=== PATIENT | male | born 1950 | race Caucasian/White ===

== ENCOUNTER → 2022-09-20 11:59 | Outpatient (BNVA) | payer MEDICARE, MEDICAID, SELFPAY | PROVIDERS: PCP Hospitalist; Referring Provider Hospitalist; Visit Provider Physician Assistant | DX: Z01.818 Encounter for other preprocedural examination (principal) | CPT/HCPCS: 99202 ==

== ENCOUNTER → 2022-09-27 13:14 | Outpatient (BNVA) | payer MEDICARE, MEDICAID, SELFPAY | PROVIDERS: PCP Hospitalist; Visit Provider Nurse Practitioner Family | DX: R32 Unspecified urinary incontinence (principal); N40.0 Benign prostatic hyperplasia without lower urinary tract symptoms | CPT/HCPCS: 51798; 99202 ==

== ENCOUNTER 2022-10-26 08:17 | Outpatient (REF) | payer MEDICARE, MEDICAID, SELFPAY ==
--- NOTE | ~2022-10-26 | CT_ITS ---
EXAMINATION: CT ABDOMEN WITH CONTRAST CLINICAL INFORMATION: Abdominal aortic aneurysm COMPARISON: None available. TECHNIQUE: Contiguous axial thin section helical images of the abdomen were performed following the administration of oral contrast and 85 mL of Omnipaque 350 intravenous contrast. The data set was reformatted in the coronal and sagittal planes and reviewed on an independent workstation. This CT examination was performed using dose optimization techniques as appropriate, variously including the following: *Automated exposure control *Adjustment of mA and/or kV according to patient size (this includes techniques or standardized protocols for targeted exams where dose is matched to indication/reason for exam; i.e. extremities or head) *Use of iterative reconstruction technique DLP: 115 mGy-cm FINDINGS: LUNG BASES: There may be emphysematous changes. The lung bases are clear. LIVER, GALLBLADDER, AND BILIARY TREE: Several liver cysts, largest measuring 2 cm in the left lobe adjacent to the ligament. Mild fatty infiltration of the liver. Normal gallbladder. No biliary duct dilatation. PANCREAS: Normal SPLEEN: Normal ADRENAL GLANDS AND KIDNEYS: 2 right renal cysts, largest measuring 3 cm in the lower pole.. No imaging follow-up recommended. Kidneys are otherwise normal. BOWEL LOOPS: Constipation and diverticulosis. Normal small bowel. Question small esophageal hernia. LYMPH NODES: Normal. VASCULAR: Large fusiform juxtarenal abdominal aortic aneurysm measuring maximum 6.1 x 7.4 cm in AP and transverse dimension. This measures 11 cm in length and extends to the iliac bifurcation. This is partially thrombosed. BONES: Degenerative changes of the spine. CT/CT abdomen w IV con IMPRESSION: Large fusiform juxtarenal abdominal aortic aneurysm extending to the iliac arteries. This measures 6.1 x 7.4 x 11 cm in AP transverse and longitudinal dimension. Vascular consultation recommended. Findings will be communicated by the [place] work flow table lever operator. Fleischner guidelines were followed.
[2022-10-26] MEDS: iohexoL 350 MG/ML 100 ML INFUS..BTL IV (09:44)
== END 2022-10-26 08:18 | disposition home or self-care (01) ==
LOC: HO.CT 08:17
PROVIDERS: PCP Hospitalist; Visit Provider Hospitalist
DX: I71.40 Abdominal aortic aneurysm, without rupture, unspecified (principal)
CPT/HCPCS: 74160; Q9967

== ENCOUNTER 2022-11-08 11:37 | Outpatient (REF) | payer MEDICARE, MEDICAID, SELFPAY ==
--- NOTE | ~2022-11-08 | XR_ITS ---
EXAMINATION: XR CHEST CLINICAL INFORMATION: Cough COMPARISON: None available. TECHNIQUE: 2 views of the chest were obtained. FINDINGS: The cardiac and mediastinal contours are normal. The lungs are clear. There is no pleural effusion or pneumothorax. There are old bilateral rib fractures. There are are degenerative changes of the spine. XR/XR chest 2V IMPRESSION: No evidence for acute disease in the chest.
== END 2022-11-08 11:38 | disposition home or self-care (01) ==
LOC: HO.XRAY 11:37
PROVIDERS: PCP Hospitalist; Visit Provider Hospitalist
DX: R05.9 Cough, unspecified (principal)
CPT/HCPCS: 71046

== ENCOUNTER → 2022-11-15 15:23 | Outpatient (BNVA) | payer MEDICARE, MEDICAID, SELFPAY | PROVIDERS: PCP Hospitalist; Visit Provider Surgery Vascular Surgery | DX: I71.40 Abdominal aortic aneurysm, without rupture, unspecified (principal) | CPT/HCPCS: 99202 ==

== ENCOUNTER 2022-11-20 14:51 | Outpatient (REF) | payer MEDICARE, MEDICAID, SELFPAY ==
[2022-11-21 12:12] LABS: Creatinine POC 0.6 mg/dL (0.5-1.4); GFR POC > 60
== END 2022-11-20 14:52 | disposition home or self-care (01) ==
LOC: HO.CT 14:51
PROVIDERS: Absent Provider Hospitalist; PCP Hospitalist; Visit Provider Surgery Vascular Surgery
DX: I71.42 Juxtarenal abdominal aortic aneurysm, without rupture (principal)
CPT/HCPCS: 82565

== ENCOUNTER → 2022-11-22 13:42 | Outpatient (BNVA) | payer MEDICARE, MEDICAID, SELFPAY | PROVIDERS: PCP Hospitalist; Referring Provider Hospitalist; Visit Provider Internal Medicine | DX: Z01.810 Encounter for preprocedural cardiovascular examination (principal); I71.40 Abdominal aortic aneurysm, without rupture, unspecified | CPT/HCPCS: 93005; 99202 ==

== ENCOUNTER → 2022-11-23 11:00 | Outpatient (BNVA) | payer MEDICARE, MEDICAID, SELFPAY | PROVIDERS: PCP Hospitalist; Visit Provider Internal Medicine Pulmonary Disease | DX: Z01.811 Encounter for preprocedural respiratory examination (principal); R91.8 Other nonspecific abnormal finding of lung field; J44.9 Chronic obstructive pulmonary disease, unspecified | CPT/HCPCS: 94010; 94618; 99202 ==

== ENCOUNTER 2022-11-28 08:27 | Outpatient (REF) | payer MEDICARE, MEDICAID, SELFPAY ==
--- NOTE | ~2022-11-28 | CT_ITS ---
EXAMINATION: CT ANGIOGRAM ABDOMEN AND PELVIS CLINICAL INFORMATION: Abdominal aortic aneurysm. COMPARISON: CT 10/26/2022 TECHNIQUE: Multiple axial images were obtained through the abdomen and pelvis following the administration of 100 mL of Omnipaque 350 intravenous contrast. Images were reviewed on a dedicated 3-D workstation. This CT examination was performed using dose optimization techniques as appropriate, variously including the following: *Automated exposure control *Adjustment of mA and/or kV according to patient size (this includes techniques or standardized protocols for targeted exams where dose is matched to indication/reason for exam; i.e. extremities or head) *Use of iterative reconstruction technique DLP: 567 mGy-cm FINDINGS: Vascular: The distal thoracic aorta is normal in caliber. No evidence of dissection or other acute aortic syndrome. There is angulation of the abdominal aorta at the level of renal arteries. Redemonstration of a juxtarenal abdominal aortic aneurysm with extensive circumferential luminal thrombus. The aneurysm measures up to a maximal diameter of 6.6 cm at the level of the L3 vertebral body and extends over a length of approximately 13 cm. Its distal extent involves the origin of the right common iliac artery, though there is no dilation of the right common iliac artery itself. The proximal opacified lumen measures 3.9 x 3.2 cm. There is calcified and noncalcified disease of the right common iliac which is not dilated. The right external and internal iliac arteries are normal in caliber and without stenosis. The right common femoral artery is normal in caliber, though minimally ectatic just proximal to its bifurcation. There is calcification at the origin of the imaged femoral artery vascular stents. The left common iliac artery has calcified and noncalcified plaque which results in mild narrowing proximally. There is severe stenosis at the origin of the internal iliac. The external iliac is normal in caliber. Proximal femoral vessels are patent. There is severe, likely occlusive stenosis of the celiac origin, though the vessel is well opacified via the pancreaticoduodenal arcade. Superior mesenteric artery is well opacified. The inferior mesenteric artery origin is not patent. There is a single renal artery to each kidney. There is no significant stenosis of the renal arteries. There is an unremarkable appearance of the venous structures for an arterial phase of contrast. Lung bases are clear. There is no pleural effusion. The liver is not enlarged. Other than previously described hepatic cysts, no focal hepatic lesions are seen. The gallbladder is unremarkable. There is no intra or extrahepatic duct dilation. Pancreas is unremarkable. There is heterogeneous enhancement of the spleen secondary to contrast phase. The spleen is otherwise unremarkable. Adrenal glands are unremarkable. Kidneys are normal in size and overall enhancement. There is a right lower pole simple renal cyst which measures 3.1 cm and would not require routine radiographic follow-up. No renal calculi are seen. There is no hydronephrosis or hydroureter. The bladder is partially distended. There is irregular bladder wall thickening which anteriorly measures up to 1.3 cm in thickness. There is bladder wall trabeculation and several diverticula. Prostate and seminal vesicles are unremarkable. The distal esophagus and stomach are unremarkable. Small large bowel are nondilated and there are no bowel wall inflammatory changes. There is a large form of stool throughout the colon. There is no significant hernia of the abdominal wall seen. There is no free intraperitoneal fluid. No abdominopelvic or retroperitoneal lymphadenopathy is seen. There is no acute or aggressive bony abnormality identified. There is mild endplate degenerative change of the imaged thoracolumbar spine and there are degenerative changes of the hips, right greater than left. CT/CT angio abdomen pelvis IMPRESSION: Redemonstration of a juxtarenal abdominal aortic aneurysm which measures up to 6.6 cm in diameter and extends over a length of 13 cm which extends into the origin of the right common iliac artery. Occlusive stenosis of the celiac trunk. There is irregular bladder wall thickening. Further evaluation could be considered with cystoscopy. Fleischner guidelines were followed.
[2022-11-28] MEDS: iohexoL 350 MG/ML 100 ML INFUS..BTL IV (08:50)
== END 2022-11-28 08:28 | disposition home or self-care (01) ==
LOC: HO.CT 08:27
PROVIDERS: PCP Hospitalist; Visit Provider Surgery Vascular Surgery
DX: I71.40 Abdominal aortic aneurysm, without rupture, unspecified (principal)
CPT/HCPCS: 74174; Q9967

== ENCOUNTER 2022-11-29 10:20 | Outpatient (REF) | payer MEDICARE, MEDICAID, SELFPAY ==
--- NOTE | ~2022-11-29 | US_ITS ---
EXAMINATION: US RETROPERITONEAL LIMITED (RENAL ONLY) CLINICAL INFORMATION: Unspecified urinary incontinence. COMPARISON: CTA abdomen and pelvis 11/28/2022. TECHNIQUE: Real-time imaging of the kidneys. FINDINGS: RIGHT KIDNEY: 10.4 x 5.5 x 4.8 cm (SAG x AP x TRV). The kidney is normal in size, contour, and echogenicity. Renal cortical thickness is normal. No renal calculi or hydronephrosis. 3.2 cm lower pole septated cyst. LEFT KIDNEY: 8.3 x 5.0 x 4.4 cm (SAG x AP x TRV). The kidney is normal in size, contour, and echogenicity. Renal cortical thickness is normal. No calculi or focal parenchymal lesions. No hydronephrosis. US/US renal BI IMPRESSION: * 3.2 cm right lower pole septated cyst. Recommend further evaluation with CT or MRI renal protocol.
== END 2022-11-29 10:21 | disposition home or self-care (01) ==
LOC: HO.US 10:20
PROVIDERS: PCP Hospitalist; Visit Provider Nurse Practitioner Family
DX: I71.40 Abdominal aortic aneurysm, without rupture, unspecified (principal); R32 Unspecified urinary incontinence
CPT/HCPCS: 76775; 99212

== ENCOUNTER → 2022-12-05 09:11 | Outpatient (BNVA) | payer MEDICARE, MEDICAID, SELFPAY | PROVIDERS: PCP Hospitalist; Visit Provider Nurse Practitioner Family | DX: R33.9 Retention of urine, unspecified (principal); R32 Unspecified urinary incontinence; N28.1 Cyst of kidney, acquired; N32.89 Other specified disorders of bladder | CPT/HCPCS: 51798; 99212 ==

== ENCOUNTER → 2022-12-13 07:42 | Outpatient (REF) | payer MEDICARE, MEDICAID, SELFPAY ==
--- NOTE | ~2022-12-13 | NM_ITS ---
Lexiscan Myocardial perfusion study Indication: Preoperative cardiac vascular evaluation Technique: The patient was brought in for a Lexiscan perfusion study on 12/13/2022 and was injected 0.4 mg of Lexiscan intravenously. Within a minute of this injection 25 mCi of sestamibi was given intravenously. Images were obtained using the SPECT gamma camera interlaced with the gating device. Images were obtained in supine position. Resting perfusion study was performed on 12/17/2022. Patient was administered 25 mCi of sestamibi intravenously at rest. Images were then obtained in supine position. Images were processed with the software and compared side to side in short axis, horizontal long axis and vertical long axis views. Total DLP 71mGy-cm. Findings: Raw acquisition reviewed. Arms by the patient's side. The stress perfusion study showed mildly diminished tracer uptake in the basal part of septum. With CT attenuation correction, there is generalized decreased uptake and hence not interpretable. The small basal septal defect could be artifactual finding. The gated study shows normal LV systolic function with calculated LVEF of 57%. LV cavity is normal in size. The gated study shows normal wall thickening and contraction of segments. Resting study shows no significant perfusion abnormality.. Gating at rest reveals normal wall motion with ejection fraction at 62%. The findings are consistent with mild reversible basal septal defect. Possibly artifactual. Less likely ischemia. NM/NM cardiolite stress test Impression: 1. Myocardial perfusion imaging study shows mild reversible basal septal defect which could be artifactual finding. Less likely representing ischemia. 2. Gated LVEF is 57% during stress and 62% during rest. 3. Transient ischemic dilatation not present. EKG component of the test reported separately.
--- NOTE | 2022-12-13 07:51 | CA_ITS ---
Transthoracic Echocardiogram Patient (Last, First, Middle): Mariusz Kirkland, Gender: Male Date of : 1950 Age: 72 Procedure Date: 12/13/2022 Procedure Type: Transthoracic Echocardiogram Location: OP Height: 165.1 cm Weight: 56.7 kg BSA: 1.62 m2 Heart Rate: 67 bpm BP: 115 / 80 mmHg Car Blocker: YUSRA Referring MD: Gualberto aLy MD Symptoms: I25.10 - Atherosclerotic heart disease of [place] coronary artery without... Study Quality: Technically Difficult ECG Rhythm: Sinus Conclusions: - The left ventricular systolic function is normal. The visually estimated ejection fraction is between 60-65%. - No obvious valvular pathology seen on this study. Findings Left Ventricle Normal left ventricular cavity size. There is normal left ventricular wall thickness. The left ventricular systolic function is normal. The visually estimated ejection fraction is between 60-65%. There is no evidence of regional wall motion abnormalities. Diastolic function is normal for age. Right Ventricle Normal right ventricular cavity size. There is mildly decreased right ventricular systolic function. Atria Both atria are normal in size. Aortic Valve The aortic valve was not well visualized. The aortic valve structure and function is likely normal. There is no aortic valve stenosis. There is no aortic valve regurgitation. Mitral Valve The mitral valve appears normal. There is no mitral valve regurgitation. There is no mitral valve stenosis. Pulmonic Valve The pulmonic valve was not well visualized. Tricuspid Valve There is no tricuspid valve regurgitation. Tricuspid regurgitation envelope is inadequate for calculation of right ventricular systolic pressure. Great Vessels The asc aorta is normal in size. Venous The inferior vena cava is normal in size and collapses greater than 50% with inspiration. Pericardium/Pleural There is no evidence of pericardial effusion. Prior Study Comparison No prior study available for comparison. Recommendations, Care & Conclusions No obvious valvular pathology seen on this study. Measurements 2D Linear Measurements IVSd: 0.91 0.6-0.9/0.6-1.0 cm LVIDd: 4.04 3.9-5.3/4.2-5.9 cm LVIDd Index: 2.49 2.4-3.2/2.2-3.1 cm/m2 LVIDs: 2.54 2.0-3.6 cm LVPWd: 0.72 0.7-1.1 cm LA Diam: 2.80 2.7-3.8/3.0-4.0 cm LAIDs Index: 1.73 1.5-2.3 cm/m2 LV Mass: 121.40 67-162/88-224 g LV Mass Index: 74.94 43-95/49-115 g/m2 LVOT Diam: 2.30 3.0+(-)1.3 cm 2D Systolic Function EF 4C: 59.60 >55% Mitral Valve MV Pk E: 0.45 MV PK A: 0.60 MV Decel Time: 295.00 E/A: 0.70 E'Lateral: 6.92 E'Medial: 5.17 E/E' Med: 8.70 E/E' Lat: 6.50 PHT: 86.00 MVA PHT: 2.56 Decel Snyder: 1.52 Aortic Valve AoV Pk Chris: 1.07 AoV Mn Chris: 0.74 AoV VTI: 0.19 AoV Pk Grad: 5.00 Aov Mn Grad: 3.00 JADEN Cont.VTI: 2.78 LVOT LVOT Pk Chris: 0.60 LVOT Mn Chris: 0.48 LVOT VTI: 0.13 LVOT Pk Grad: 1.00 LVOT Mn Grad: 1.00 LVOT Diam: 2.30 LVOT Area: 4.15 Diastolic Function MV Pk E: 0.45 MV Pk A: 0.60 E/A: 0.70 E'Medial: 5.17 E/E' Med: 8.70 E' Laterial: 6.92 E/E' Lat: 6.50 Right Ventricle TAPSE (mm): 13.80 TVS' Chris: 10.60 Tricuspid Valve RA Press: 3.00 Great Vessels Aorta Sinus of Valsalva: 3.60 2.0-3.5 cm Ao Asc: 2.60 2.1-3.4 cm Updated in Other Vendor System with Status of Final Gualberto Lay MD electronically signed on 12/15/2022 11:47:38 AM with status of Final
--- NOTE | 2022-12-13 07:51 | CA_ITS ---
Acquisition Time: 2022-12-13 09:01:16 Total Exercise Time: 00:02:00 Test Indications: Pre-Op Evaluation Medications: DIAZAPAM DOXYCYCLINE LACTULOSE LEVOTHYROXINE PANTOPRAZOLE PROPRANOLOL SIMVASTATIN Protocol: LEXISCAN Max HR: 112 BPM 75% of Pred: 148 BPM Max BP: 128/086 mmHG Max Work Load: 1.0 METS Pharmacological stress test with Lexiscan injection while sitting, without anginal sympotoms, without arrhythmias, with normotensive response to exercise, without EKG changes. Aminophylline 75mg IVP given to reverse Lexiscan. Nuclear images pending. Test reviewed with Dr. Lay. Referred By: Gualberto Lay Overread By: AXEL SABILLON
== END ==
LOC: HO.CARD 07:42
PROVIDERS: Visit Provider Internal Medicine
DX: Z01.810 Encounter for preprocedural cardiovascular examination (principal); R07.2 Precordial pain; I25.10 Atherosclerotic heart disease of native coronary artery without angina pectoris; I71.40 Abdominal aortic aneurysm, without rupture, unspecified
CPT/HCPCS: 78452; 93017; 93306; A9500; J0280; J2785

== ENCOUNTER 2022-12-17 10:05 | Outpatient (REF) | payer MEDICARE, MEDICAID, SELFPAY ==
--- NOTE | ~2022-12-17 | CT_ITS ---
EXAMINATION: CT CHEST WITHOUT CONTRAST CLINICAL INFORMATION: Other nonspecific abnormal finding of lung field COMPARISON: Lung windows from CT of the abdomen October 2022 and CTA of the abdomen November 2022 TECHNIQUE: Multidetector volumetric CT imaging of the chest was done. Axial MIP volume rendering provided. Sagittal and coronal reformatted images were obtained. This CT examination was performed using dose optimization techniques as appropriate, variously including the following: *Automated exposure control *Adjustment of mA and/or kV according to patient size (this includes techniques or standardized protocols for targeted exams where dose is matched to indication/reason for exam; i.e. extremities or head) *Use of iterative reconstruction technique DLP: 153 mGy-cm FINDINGS: OIL AND GAS DRAFTER: LUNGS: There is evidence of emphysema. There is apical pleural and parenchymal scarring and some calcification, right greater than left. There is increased peribronchial attenuation, some peribronchial small nodules, and mild bronchial wall thickening and scattered areas of bronchial soft tissue opacification seen. This is greatest in the right upper lobe and is suggestive of airways disease. Small 2 mm right upper lobe nodule axial image 210 series 7. Small 3 mm right lower lobe nodule axial image 350 series 7. There is a new cavitary 9 mm left lower lobe nodule axial image 411 series 7. No central endobronchial or endotracheal lesion. MEDIASTINUM: Atherosclerotic disease. Upper normal-size thoracic aorta. Normal heart size. Moderate coronary artery calcification. No pericardial effusion. No enlarged hilar or mediastinal lymph nodes. CORONARY ARTERY CALCIFICATION: Moderate PLEURA: There is no pleural effusion. No pleural mass or thickening. AXILLA: No lymphadenopathy. UPPER ABDOMEN: Stable liver cysts. Severe atherosclerotic disease. OSSEOUS STRUCTURES: Degenerative changes of the spine. Old right posterior 11th rib fracture. Degenerative changes at the shoulder joints. CT/CT chest wo IV con IMPRESSION: Emphysema. Extensive airways disease, greatest in the right upper lobe. New 9 mm cavitary left lower lobe pulmonary nodule from lung windows from previous abdominal CT scans October and November 2022. Infectious or inflammatory process is favored. Short-term chest CT follow-up in several months following treatment recommended. Fleischner guidelines were followed.
== END 2022-12-17 10:06 | disposition home or self-care (01) ==
LOC: HO.CT 10:05
PROVIDERS: PCP Hospitalist; Visit Provider Internal Medicine Pulmonary Disease
DX: R91.8 Other nonspecific abnormal finding of lung field (principal)
CPT/HCPCS: 71250

== ENCOUNTER 2022-12-24 07:38 | Inpatient (IN) | payer MEDICARE, MEDICAID, SELFPAY ==
[2022-12-12 10:56] VITALS: BMI 22.5
--- NOTE | 2022-12-20 14:40 | P.CONAN_ITS ---
Documented by User: Marbella Staley NP 12/20/22 14:44 HPI - Anesthesia Eval Consult details Narrative: 72yo M for Aortic Endovascular Repair Cardiac optimized: Echocardiogram with LVEF of 60-60%.? No significant valvular issues. In the perfusion imaging, mild was basal septal defect thought to be rather artifactual.? Less likely to represent ischemia. Overall, may proceed with planned surgery.? Intermediate cardiac risk. Pulmo optimized SNF resident - TBI and paranoid schizophrenia [facility] Active Problems Active Problems: All Active Problems (Updated 12/12/22 @ 10:55 by Riddhi Arriaga RN) Encounter for screening colonoscopy (Acute) Urinary incontinence (Acute) AAA (abdominal aortic aneurysm) without rupture (Acute) Preoperative cardiovascular examination (Acute) COPD (chronic obstructive pulmonary disease) (Acute) Encounter for preoperative pulmonary examination (Acute) Pulmonary nodules (Acute) Incomplete bladder emptying (Acute) Renal cyst (Acute) Bladder wall thickening (Acute) Past Medical History Medical History (Updated 12/24/22 @ 14:14 by Joaquin Sheriff MD) Age-related nuclear cataract, bilateral Alcohol dependence, uncomplicated Benign prostatic hyperplasia without lower urinary tract symptoms Constipation, unspecified COVID-19 vaccine series completed Dysphagia, oropharyngeal phase History of COVID-19 History of falling Hyperlipidemia, unspecified Hypothyroidism, unspecified Impulse disorder, unspecified Lefort i fracture, initial encounter for closed fracture Muscle weakness (generalized) Other abnormalities of gait and mobility Other specified intracranial injury without loss of consciousness, subsequent encounter Pain in left hip Paralytic gait Paranoid schizophrenia Personal history of COVID-19 Personal history of traumatic brain injury Primary generalized (osteo)arthritis Repeated falls Resides in intermediate facility Trichotillomania Unspecified abnormalities of gait and mobility Unspecified lack of coordination Unsteadiness on feet Weakness Family History Family History Unknown No problems noted. Surgical History Surgical History (Updated 12/24/22 @ 14:14 by Joaquin Sheriff MD) History of facial surgery Social History Social History Household Members: Unknown / Unable to assess Housing Other:: [facility] Are you a primary skin care instructor to a significant other at home: No Do you presently have visiting nurse or other home services: Yes (resides @ [facility]) Unable to assess alcohol history related to: Unable to respond and Unknown Patient Tobacco Use Status: Tobacco use Unknown Tobacco use type: Cigarette Cigarettes Per Day: 4 Years Smoked: 57 Use of substances other than those prescribed or required for medical reasons: Unknown Spiritual Healthcare Practices: unable to assess [facility] Practices: unable to assess Cultural Healthcare Practices: unable to assess Are you DNR?: No Advance Directives: Yes (has HCP and guardianship decree) Advance Directives Information Provided: Yes Advance Directives on File: Yes Advance Directives Date on File: 12/05/22 Recently lost weight without trying: No Eating poorly because of decreased appetite: No Nutrition Risks: No Nutritional Risk Poor oral hygiene: No Meds Allergies Allergy/AdvReac Type Severity Reaction Status Date / Time cefpodoxime Allergy Intermediate Rash Verified 12/12/22 10:54 Home Medications Medication Instructions Recorded Confirmed Last Taken Type acetaminophen 325 mg capsule 650 mg PO Q6H PRN Pain 09/20/22 12/13/22 Unknown History bisacodyl 10 mg rectal suppository 10 mg OR DAILY PRN Constipation 09/20/22 12/13/22 Unknown History (Dulcolax (bisacodyl)) diazepam 2 mg tablet 3 mg PO BID PRN Anxiety 09/20/22 12/13/22 Unknown History sodium phosphates 19 gram-7 118 ml OR DAILY PRN Constipation 09/20/22 12/13/22 Unknown History gram/118 mL enema (Fleet Enema) lactulose 10 gram/15 mL oral 15 ml PO BID 09/26/22 12/13/22 Unknown History solution levothyroxine 112 mcg tablet 112 mcg PO DAILY 09/26/22 12/13/22 Unknown History perphenazine 2 mg tablet 2 mg PO BID 09/26/22 12/13/22 Unknown History perphenazine 4 mg tablet 4 mg PO BID 09/26/22 12/13/22 Unknown History propranolol 10 mg tablet 10 mg PO BID 09/26/22 12/13/22 Unknown History simvastatin 40 mg tablet 40 mg PO BEDTIME 09/26/22 12/13/22 Unknown History nicotine 7 mg/24 hr daily 1 patch transdermal Q24H 12/05/22 12/13/22 Unknown History transdermal patch polyvinyl alcohol 1.4 % eye drops 1 drp ophthalmic (eye) TID-QID PRN 12/05/22 12/13/22 Unknown History (Artificial Tears (polyvinyl Dry Eyes alcohol)) sennosides 8.6 mg tablet (senna) 17.2 mg PO DAILY PRN Constipation 12/05/2206/27 Unknown History Exam Exam Date and Time: December 20, 2022 1440 Height,Weight and Vital Signs: Height 5 ft 5 in Weight 61.235 kg Narrative Narrative: EKG 11/2022 sinus rhythm at 79/Min; no significant ST-T changes and otherwise unremarkable.? Normal OR and corrected QT. ECHO 12/2022 Conclusions: - The left ventricular systolic function is normal.? The visually estimated ejection fraction is between 60-65%. ? - No obvious valvular pathology seen on this study.? ?? NM cardiolite stress test 12/2022 Impression: ? 1.? Myocardial perfusion imaging study shows mild reversible basal septal defect which could be artifactual finding. Less likely representing ischemia. 2.? Gated LVEF is 57% during stress and 62% during rest. 3. Transient ischemic dilatation not present. ? EKG component of the test reported separately. Assessment and Plan Assessment Anesthesia Assessment: Chart Reviewed Documented by User: Baudilio Le MD 12/24/22 17:11 [facility] Past Medical History Medical History (Updated 12/24/22 @ 14:14 by Joaquin Sheriff MD) Age-related nuclear cataract, bilateral Alcohol dependence, uncomplicated Benign prostatic hyperplasia without lower urinary tract symptoms Constipation, unspecified COVID-19 vaccine series completed Dysphagia, oropharyngeal phase History of COVID-19 History of falling Hyperlipidemia, unspecified Hypothyroidism, unspecified Impulse disorder, unspecified Lefort i fracture, initial encounter for closed fracture Muscle weakness (generalized) Other abnormalities of gait and mobility Other specified intracranial injury without loss of consciousness, subsequent encounter Pain in left hip Paralytic gait Paranoid schizophrenia Personal history of COVID-19 Personal history of traumatic brain injury Primary generalized (osteo)arthritis Repeated falls Resides in intermediate facility Trichotillomania Unspecified abnormalities of gait and mobility Unspecified lack of coordination Unsteadiness on feet Weakness Functional capacity: wheelchair bound Family History Family History Unknown No problems noted. Family history of problems with anesthesia: Unobtainable Surgical History Surgical History (Updated 12/24/22 @ 14:14 by Joaquin Sheriff MD) History of facial surgery History of Problems with Anesthesia: No Social History Social History Household Members: Unknown / Unable to assess Housing Other:: [facility] Are you a primary skin care instructor to a significant other at home: No Do you presently have visiting nurse or other home services: Yes (resides @ [facility]) Unable to assess alcohol history related to: Unable to respond and Unknown Patient Tobacco Use Status: Tobacco use Unknown Tobacco use type: Cigarette Cigarettes Per Day: 4 Years Smoked: 57 Use of substances other than those prescribed or required for medical reasons: Unknown Spiritual Healthcare Practices: unable to assess [facility] Practices: unable to assess Cultural Healthcare Practices: unable to assess Are you DNR?: No Advance Directives: Yes (has HCP and guardianship decree) Advance Directives Information Provided: Yes Advance Directives on File: Yes Advance Directives Date on File: 12/05/22 Recently lost weight without trying: No Eating poorly because of decreased appetite: No Nutrition Risks: No Nutritional Risk Poor oral hygiene: No Meds Allergies Allergy/AdvReac Type Severity Reaction Status Date / Time cefpodoxime Allergy Intermediate Rash Verified 12/12/22 10:54 Home Medications Medication Instructions Recorded Confirmed Last Taken Type acetaminophen 325 mg capsule 650 mg PO Q6H PRN Pain 09/20/22 12/13/22 Unknown History bisacodyl 10 mg rectal suppository 10 mg OR DAILY PRN Constipation 09/20/22 12/13/22 Unknown History (Dulcolax (bisacodyl)) diazepam 2 mg tablet 3 mg PO BID PRN Anxiety 09/20/22 12/13/22 Unknown History sodium phosphates 19 gram-7 118 ml OR DAILY PRN Constipation 09/20/22 12/13/22 Unknown History gram/118 mL enema (Fleet Enema) lactulose 10 gram/15 mL oral 15 ml PO BID 09/26/22 12/13/22 Unknown History solution levothyroxine 112 mcg tablet 112 mcg PO DAILY 09/26/22 12/13/22 Unknown History perphenazine 2 mg tablet 2 mg PO BID 09/26/22 12/13/22 Unknown History perphenazine 4 mg tablet 4 mg PO BID 09/26/22 12/13/22 Unknown History propranolol 10 mg tablet 10 mg PO BID 09/26/22 12/13/22 Unknown History simvastatin 40 mg tablet 40 mg PO BEDTIME 09/26/22 12/13/22 Unknown History nicotine 7 mg/24 hr daily 1 patch transdermal Q24H 12/05/22 12/13/22 Unknown History transdermal patch polyvinyl alcohol 1.4 % eye drops 1 drp ophthalmic (eye) TID-QID PRN 12/05/22 12/13/22 Unknown History (Artificial Tears (polyvinyl Dry Eyes alcohol)) sennosides 8.6 mg tablet (senna) 17.2 mg PO DAILY PRN Constipation 12/05/22 12/13/22 Unknown History Exam Airway Mallampati Class: IV Loose/Missing/Broken Teeth: Yes Assessment and Plan Assessment Anesthesia Assessment: Anesthesia Plan Discussed Final Anesthetic Review Family History of Problems with Anesthesia: Unobtainable History of Problems with Anesthesia: No NPO: Yes ASA Class: IV Final Preanesthetic Review: Meds/Allgs Chart Reviewed, Consent Obtained/Reviewed and Anes Risks/Benef Reviewed Patient Risk: High Procedure Risk: High Anesthetic Plan Anesthetic Plan: GA Disposition: Inp. Admit - ICU
[2022-12-24] VITALS (17 sets, daily range): BP systolic 107–139; BP diastolic 53–85; PULSE 73–104; RESP 12–24; TEMP 36.1–36.3; O2SAT 93–100
--- NOTE | ~2022-12-24 | FL_ITS ---
EXAMINATION: XR FLUOROSCOPY WITH IMAGES CLINICAL INFORMATION: AAA COMPARISON: None available. TECHNIQUE: Fluoroscopy Supervised By: Dr. Pires on the. Fluoroscopy Time: 36.6 minutes. Cumulative Dose: 240 mGy. DAP: 65.5 Gycm2. Images: 170. FINDINGS: Fluoroscopy guidance was provided to referring physician during abdominal aortic graft stent placement. FL/FL guidance in OR IMPRESSION: Fluoroscopy guidance was provided to referring physician during abdominal aortic graft stent placement.
[2022-12-24 07:55] LABS: Hematocrit 39.5 % (42.0-52.0); Hemoglobin 12.6 g/dl (14.0-18.0); Mean Corpuscular HGB Conc 31.9 g/dl (31.0-36.0); Mean Corpuscular Volume 87.8 fL (80.0-98.0); Mean Platelet Volume 8.6 fL (9.4-12.4); Platelet Count 333 X10*3/uL (160-400); Red Cell Distribution Width 14.1 % (11.0-16.0); White Blood Count 8.7 X10*3/uL (4.8-10.8)
[2022-12-24 08:10] LABS: Anion Gap 13 (12-20); Blood Urea Nitrogen 16 mg/dL (9-16); Calcium 9.3 mg/dL (8.4-10.2); Carbon Dioxide 29 mmol/L (22-29); Chloride 102 mmol/L (96-108); Creatinine Clr Calc Pharmacy 64.2; Estimated Glomerular Filt Rate > 60; Glucose Random 89 mg/dL (60-115); Potassium 4.5 mmol/L (3.3-5.1); Sodium 139 mmol/L (135-145)
[2022-12-24 08:13] LABS: Prothrombin Time 11.4 SEC (10.0-13.1)
[2022-12-24 08:16] LABS: Partial Thromboplastin Time 28.5 SEC (26.0-36.4)
--- NOTE | 2022-12-24 08:17 | PHA.MEDREC ---
Pharmacy Consult ? Medication Reconciliation Pharmacy has REVIEWED the medication reconciliation.
[2022-12-24 08:28] LABS: COVID-19 Test Negative (Negative); IDNOW Serial# BCCEAD1C
[2022-12-24] MEDS: Lactated Ringers 1,000 ML 50 ML IVCONT (08:31)
[2022-12-24] MEDS: ceFAZolin Sodium/Dextrose,Iso 2 GM/50 ML PIGGYBACK IV ×2 (09:23→14:48)
--- NOTE | 2022-12-24 12:04 | MHC.SHP ---
Pre-Procedural Eval Section A Date of Service: 12/24/22 The patient is an INPATIENT: No Changes since office visit: Yes Patient answered all questions The History & Physical has been completed within 30 days and I have reviewed it.: Yes Section B Chief Complaint: Postop Allergies: Allergies Allergy/AdvReac Type Severity Reaction Status Date / Time cefpodoxime Allergy Intermediate Rash Verified 12/12/22 10:54 Plan I have reviewed the history and physical and performed a pertinent physical examination on my patient. No changes have occurred unless specified. Time Spent With Patient Time: Total time managing care of this patient today ____ minutes.
--- NOTE | 2022-12-24 12:04 | W.PM.OPN ---
Operative Note Operative Note Date of Service: 12/24/22 Narrative: Operative note by [facility] Preoperative diagnosis: Abdominal aortic aneurysm without rupture Postoperative diagnosis: Same Procedure: Endovascular aortic aneurysm repair (Endologix AFX-2) Surgeon:Rodrigo Weir M.D. [facility] Registered Nurse: Dr. Lamar Anesthesia: General Specimens: Non Drains: None Estimated blood loss: 300 mL with 125 given back as Cell Saver Indications: 72-year-old gentleman who upon workup kidney stones was found to have an abdominal aortic aneurysm after further workup he was noted to be 6.6 cm but on true center line it was nearly 7 cm. The patient healthcare proxy has signed the informed consent after reviewing risks, complications, benefits, and alternatives previously discussed with the patient. The patient was given the opportunity to ask any additional questions or voice any concerns. All questions were answered to the patient's satisfaction. Procedure in detail: Patient was brought to the operating room prior to which a time-out was called for patient identification and site verification abdomen and bilateral groins were prepped and draped in standard surgical fashion. Cutdown was performed on the right groin. On the left side using ultrasound guidance percutaneous puncture was created. We inserted a initially a 4 Trinidadian sheath on the ipsilateral side the patient's right common femoral artery and also a 4 Trinidadian sheath on the contralateral side the patient's left femoral artery. Once again the left femoral artery was accessed using ultrasound guidance and we E then subsequently upsized to a 7 Trinid[place] sheath from there. Angiogram was performed to measure vessel length and characterize the anatomy and it is topography. We exchanged the ipsilateral side for a Lunderquist stiff wire. We loaded the 28 x 100 a FX 2 bifurcated device on to a stiff wire and advanced the contralateral wire up through the 19 Trinidadian outer diameter a FX introducer sheath using a guidewire. Contralateral wire was snared and pulled out the contra side. A FX 2 bifurcated device was then transferred into the a FX introducer sheath and advanced under fluoro until the distal limbs were above the aortic bifurcation releasing the limbs of the graft. I pulled the entire system down on to the aortic bifurcation. We deployed the main body of the graft by pulling the control handle cord. We then deployed the contralateral limb by pulling the yellow limb cover, then advanced the pigtail catheter over the contra wire to the tip was in contact with the wire lock. We held the pigtail in place and pulled the contra wire to release the wire lock. We deployed the if C limb by pinning the inner core and retracting the a FX introducer sheath. We advanced and deployed 1st a suprarenal 28 x 95 extension endograft and performed an angiogram to visualize the renal arteries. We then did a bridging infrarenal piece 28 x 95 once again to connect the suprarenal stent to the main body. Once this was all accomplished we plasty the right and left iliac arteries with a 10 x 40 balloon. We then through the right side brought in a cue 50 balloon and plasty did the entire graft to obtain good wall apposition. We performed a final angiogram which demonstrated no significant endoleaks. At this point we removed catheter wire sheath and closed vascular access sites. The right side which was the cutdown side was closed with a 6 0 Prolene suture flushed prior to closure. The deep layer was reapproximated 2 0 poly Sorb superficial layer with 2 0 poly Sorb and finally skin with a 4-0 Monocryl. The contralateral side which was the left side was closed with a StarClose closure device. Direct pressure was held. Exofin was used as a sterile dressing. At the end the case sponge instrument counts were correct. Interpretation of films: 1. Ultrasound guidance demonstrated appropriate puncture 2. Initial angiogram confirmed topography of aortic aneurysm. 3. Completion angiogram demonstrated appropriate placement of aortic endograft with no significant evidence of endoleak. Conclusion: 1. Successful placement of Endologix AFX2 endograft This note is constructed using voice recognition software. While every effort has been made to ensure accuracy, management assistant errors may have been included. Thank you for allowing me to participate in the care of your patient. Yours sincerely, Rodrigo Weir MD, FACS, R.P.V.I.
[2022-12-24] MEDS: 0.9 % Sodium Chloride 1,000 ML 80 ML IVCONT ×2 (13:46→23:24)
--- NOTE | 2022-12-24 14:10 | P.HPCC_ITS ---
History of Present Illness Date of Service: 12/24/22 Chief Complaint: Status post elective endovascular AAA repair 72-year-old gentleman, active greater than 40 pack-year smoker with underlying TBI and paranoid schizophrenia, also likely COPD now postoperative day 0 after an elective endovascular AAA repair being monitored in the intensive care unit. Review of Systems Review of Systems: Yes Unobtainable due to mental condition PMFSH Past Medical History Medical History (Updated 12/24/22 @ 14:14 by Joaquin Sheriff MD) Age-related nuclear cataract, bilateral Alcohol dependence, uncomplicated Benign prostatic hyperplasia without lower urinary tract symptoms Constipation, unspecified COVID-19 vaccine series completed Dysphagia, oropharyngeal phase History of COVID-19 History of falling Hyperlipidemia, unspecified Hypothyroidism, unspecified Impulse disorder, unspecified [place]efort i fracture, initial encounter for closed fracture Muscle weakness (generalized) Other abnormalities of gait and mobility Other specified intracranial injury without loss of consciousness, subsequent encounter Pain in left hip Paralytic gait Paranoid schizophrenia Personal history of COVID-19 Personal history of traumatic brain injury Primary generalized (osteo)arthritis Repeated falls Resides in senior care facility Trichotillomania Unspecified abnormalities of gait and mobility Unspecified lack of coordination Unsteadiness on feet Weakness Functional capacity: wheelchair bound Family History Family History Unknown No problems noted. Surgical History Surgical History (Updated 12/24/22 @ 14:14 by Joaquin Sheriff MD) History of facial surgery Social History Social History Housing Other:: [facility] Are you a primary summer child caregiver to a significant other at home: No Do you presently have visiting nurse or other home services: Yes ([facility]) Patient Tobacco Use Status: Current someday Tobacco user Tobacco use type: Cigarette Cigarettes Per Day: 4 Years Smoked: 57 Use of substances other than those prescribed or required for medical reasons: No Have you been hit, kicked, punched, or otherwise hurt by someone within the past year? If so, by whom?: No Are you DNR?: No Advance Directives: Yes (has HCP and guardianship decree) Advance Directives Information Provided: Yes Advance Directives on File: Yes Advance Directives Date on File: 12/05/22 Recently lost weight without trying: No Eating poorly because of decreased appetite: No Nutrition Risks: No Nutritional Risk Poor oral hygiene: No (adentulous) Meds Allergies Allergy/AdvReac Type Severity Reaction Status Date / Time cefpodoxime Allergy Intermediate Rash Verified 12/12/22 10:54 Active Medications: Current Medications Acetaminophen (Acetaminophen 325 Mg Tablet) 650 mg PO Q6H PRN PRN Reason: Pain, Mild (Pain Scale 1-3) Artificial Tears (Artificial Tears 15 Ml Drops) 1 drop EYE-BOTH QID PRN PRN Reason: Dry Eyes Atorvastatin Calcium (Atorvastatin Calcium 20 Mg Tablet) 40 mg PO BEDTIME [facility] Bisacodyl (Bisacodyl 10 Mg Supp.Rect) 10 mg GA DAILY PRN PRN Reason: Constipation Diazepam (Diazepam 2 Mg Tablet) 3 mg PO BID PRN PRN Reason: Anxiety Sodium Chloride (Ns) 1,000 mls @ 80 mls/hr IVCONT .[id number] [facility] Last Admin: 12/24/22 13:46 Dose: 80 mls/hr Cefazolin Sodium/Dextrose (Ancef) 2 gm in 50 mls @ 100 mls/hr IV POSTOP ONE Stop: 12/24/22 15:49 Lactulose (Lactulose 20 Gm/30 Ml Solution) 10 gm PO BID [facility] Levothyroxine Sodium (Levothyroxine Sodium 112 Mcg Tablet) 112 mcg PO DAILY@0600 [facility] Morphine Sulfate (Morphine Sulfate 2 Mg/Ml Cartridge) 2 mg IVPUSH Q4H PRN; Protocol PRN Reason: Pain, Severe (Pain Scale 7-10) Nicotine (Nicotine 7 Mg Patch.Td24) 7 mg TRANSDERMA Q24H [facility] Last Admin: 12/24/22 13:46 Dose: Not Given Oxycodone HCl (Oxycodone Hcl Immed Release 5 Mg Tablet) 5 mg PO Q4H PRN PRN Reason: Pain, Moderate(Pain Scale 4-6) Perphenazine (Perphenazine 2 Mg Tablet) 2 mg PO BID [facility] Perphenazine (Perphenazine 4 Mg Tablet) 4 mg PO BID [facility] Propranolol HCl (Propranolol Hcl 10 Mg Tablet) 10 mg PO BID [facility]; Protocol Senna (Sennosides 8.6 Mg Tablet) 17.2 mg PO DAILY PRN PRN Reason: Constipation Sodium Biphosphate/Sodium Phosphate (Sodium Phosphate,[place]-Dibasic 133 Ml Enema) 118 ml GA DAILY PRN PRN Reason: Constipation Sodium Chloride (0.9 % Sodium Chloride Flush 3 Ml Syringe) 3 ml IVFLUSH [facility] Home Medications Medication Instructions Recorded Confirmed Last Taken Type acetaminophen 325 mg capsule 650 mg PO Q6H PRN Pain 09/20/22 12/13/22 Unknown History bisacodyl 10 mg rectal suppository 10 mg GA DAILY PRN Constipation 09/20/2206/27 Unknown History (Dulcolax (bisacodyl)) diazepam 2 mg tablet 3 mg PO BID PRN Anxiety 09/20/22 12/13/22 Unknown History sodium phosphates 19 gram-7 118 ml GA DAILY PRN Constipation 09/20/22 12/13/22 Unknown History gram/118 mL enema (Fleet Enema) lactulose 10 gram/15 mL oral 15 ml PO BID 09/26/22 12/13/22 Unknown History solution levothyroxine 112 mcg tablet 112 mcg PO DAILY 09/26/22 12/13/22 Unknown History perphenazine 2 mg tablet 2 mg PO BID 09/26/22 12/13/22 Unknown History perphenazine 4 mg tablet 4 mg PO BID 09/26/22 12/13/22 Unknown History propranolol 10 mg tablet 10 mg PO BID 09/26/22 12/13/22 Unknown History simvastatin 40 mg tablet 40 mg PO BEDTIME 09/26/22 12/13/22 Unknown History nicotine 7 mg/24 hr daily 1 patch transdermal Q24H 12/05/22 12/13/22 Unknown History transdermal patch polyvinyl alcohol 1.4 % eye drops 1 drp ophthalmic (eye) TID-QID PRN 12/05/22 12/13/22 Unknown History (Artificial Tears (polyvinyl Dry Eyes alcohol)) sennosides 8.6 mg tablet (senna) 17.2 mg PO DAILY PRN Constipation 12/05/22 12/13/22 Unknown History Physical Exam Vital Signs: Vital Signs: Last Vital Signs Temp 97.0 F 12/24/22 12:15 Pulse 95 12/24/22 14:00 Resp 12 12/24/22 14:00 BP 123/71 12/24/22 14:00 Pulse Ox 94 12/24/22 14:00 O2 Del Method Room Air 12/24/22 14:00 O2 Flow Rate 2 12/24/22 13:00 BMI result Body Mass Index 22.5 Const: General: no acute distress and awake Eyes: Sclerae: sclerae normal EOM: EOMs intact bilaterally Neck: Neck: Yes no lymphadenopathy, Yes trachea midline and Yes supple Resp: Effort & Inspection: normal respiratory effort and no respiratory distress Auscultation: clear to auscultation bilaterally Cardio: Rate: regular rate Rhythm: regular rhythm Heart sounds: no gallops, no murmurs and no rubs GI: Palpation (GI): Soft to palpation and Other GI palpation findings present ( Nontender) Auscultation: normal bowel sounds Extrem: General: Yes no pedal edema, No clubbing, No cyanosis and Yes other (Bilateral femoral vascular access sites without hematoma) Results Labs 12/24/22 07:47 12/24/22 07:47 Labs: Laboratory Results - last 24 hr 12/24/22 12/24/22 12/24/22 07:47 07:47 07:47 MCV 87.8 MCH 28.0 MCHC 31.9 RDW 14.1 Plt Count 333 MPV 8.6 L Absolute Nucleated RBC 0.000 Nucleated RBC % (auto) 0.0 PT 11.4 INR 1.0 APTT 28.5 Anion Gap 13 Estim Creat Clear Calc 64.2 Estimated GFR > 60 Random Glucose 89 Calcium 9.3 COVID-19 (YANNICK) COVID-19 Clin Com Blood Type Antibody Screen 12/24/22 12/24/22 07:47 08:03 MCV MCH MCHC RDW Plt Count MPV Absolute Nucleated RBC Nucleated RBC % (auto) PT INR APTT Anion Gap Estim Creat Clear Calc Estimated GFR Random Glucose Calcium COVID-19 (YANNICK) Negative COVID-19 Clin Com See Note Blood Type A Negative Antibody Screen NEGATIVE Assessment and Plan (1) Status post percutaneous abdominal aortic aneurysm (AAA) repair: Status: Acute (2) COPD (chronic obstructive pulmonary disease): Status: Acute (3) Alcohol dependence, uncomplicated: Status: Acute (4) Paranoid schizophrenia: Status: Acute Plan Assessment: 72-year-old gentleman postoperative day 0 status post elective endovascular AAA repair, now being monitored in the intensive care unit. Plan: Neuro: No acute issues. Cardiac: Postop day 0 after an elective endovascular AAA repair. Vascular surgery service care appreciated. Maintain systolic blood pressure under 180. Pulmonary: No acute issues. Underlying COPD Renal: No acute issues. Endo: No acute issues. GI: No acute issues. ID: No acute issues Heme/Onc: No acute issues. Psych: No acute issues. Underlying paranoid schizophrenia. Miscellaneous: No acute issues. Prophylaxis: Per vascular surgery Diet: Per vascular surgery Time Spent With Patient Time: Total time managing care of this patient today ____ minutes.
--- NOTE | 2022-12-24 14:42 | PC.NURSE ---
Bilateral feet cold to touch with mottled appearance. Absent bilateral pedal and left posterior tibial pulses with Doppler. Positive right posterior tibial and bilateral popliteal pulses with Doppler. Dr Weir notified and at bedside.
[2022-12-24] MEDS: 0.9 % Sodium Chloride Flush 3 ML SYRINGE IVFLUSH ×2 (14:48→23:05)
[2022-12-24 19:36] LABS: Basophils Percent Auto 0.1 % (0-2); Hematocrit 36.3 % (42.0-52.0); Hemoglobin 11.5 g/dl (14.0-18.0); Imm Gran Abs Auto 0.08 X10*3/uL (0.00-0.03); Imm Gran Pct Auto 0.7 % (0.0-0.4); Lymphocytes Absolute Auto 0.4 X10*3/uL (1.2-4.9); Lymphocytes Percent Auto 3.5 % (20-40); MANUAL DIFF FLAG SCAN; Mean Corpuscular HGB Conc 31.7 g/dl (31.0-36.0); Mean Corpuscular Volume 88.5 fL (80.0-98.0); Mean Platelet Volume 8.6 fL (9.4-12.4); Monocytes Absolute Auto 0.3 X10*3/uL (0.1-1.2); Monocytes Percent Auto 2.3 % (2-11); Neutrophils Absolute Auto 10.6 x10*3/uL (2.0-8.3); Neutrophils Percent Auto 93.4 % (45-73); Platelet Count 217 X10*3/uL (160-400); Red Cell Distribution Width 14.2 % (11.0-16.0); SCAN SMEAR FLAG 1; White Blood Count 11.4 X10*3/uL (4.8-10.8)
[2022-12-24 20:10] LABS: SLIDE REVIEW VERIFIED
[2022-12-24] MEDS: Lactulose 20 GM/30 ML SOLUTION 10 GM PO (21:03)
[2022-12-24] MEDS: Propranolol HCL 10 MG TABLET PO (21:04)
[2022-12-24] MEDS: Perphenazine 4 MG TABLET PO (21:04)
[2022-12-24] MEDS: Atorvastatin Calcium 20 MG TABLET 40 MG PO (21:04)
[2022-12-24] MEDS: Perphenazine 2 MG TABLET PO (21:04)
--- NOTE | 2022-12-24 22:38 | PC.NURSE ---
assumed care at 1900.Pt is oriented to person. At baseline has history of TBI. Slow to answer questions. SR on monitor. A-line in place and functional to right radial. Bilateral groin incision remains clean,dry and intact. Pt tried to get out of bed. Camera is placed for safety. Bed alarm remains activated.
[2022-12-24] MEDS: diazePAM 2 MG TABLET 3 MG PO (23:01)
[2022-12-24] MEDS: Melatonin 3 MG TABLET 6 MG PO (23:49)
[2022-12-25] VITALS (13 sets, daily range): BP systolic 110–151; BP diastolic 52–83; PULSE 61–106; RESP 12–20; TEMP 36–37.1; O2SAT 92–99; BMI 20.8
[2022-12-25 05:20] LABS: ABG HCO3 33 mmol/L (22-26); ABG pCO2 48 mmHg (32-45); ABG pH 7.44 (7.35-7.45); ABG pO2 85 mmHg (83-108)
[2022-12-25 05:25] LABS: ABG Refer to POC result
[2022-12-25 05:29] LABS: MANUAL DIFF FLAG NO
[2022-12-25 05:33] LABS: Basophils Percent Auto 0.1 % (0-2); Hematocrit 29.8 % (42.0-52.0); Hemoglobin 9.6 g/dl (14.0-18.0); Imm Gran Abs Auto 0.07 X10*3/uL (0.00-0.03); Imm Gran Pct Auto 0.5 % (0.0-0.4); Lymphocytes Percent Auto 7.1 % (20-40); Mean Corpuscular HGB Conc 32.2 g/dl (31.0-36.0); Mean Corpuscular Hemoglobin 28.5 pg (27.0-33.0); Mean Corpuscular Volume 88.4 fL (80.0-98.0); Monocytes Absolute Auto 1.1 X10*3/uL (0.1-1.2); Monocytes Percent Auto 7.6 % (2-11); Neutrophils Absolute Auto 11.8 x10*3/uL (2.0-8.3); Neutrophils Percent Auto 84.7 % (45-73); Platelet Count 224 X10*3/uL (160-400); Red Blood Count 3.37 X10*6/uL (4.60-5.80); Red Cell Distribution Width 14.1 % (11.0-16.0)
[2022-12-25 05:47] LABS: Albumin Level 2.7 g/dL (3.5-5.0); Anion Gap 12 (12-20); Blood Urea Nitrogen 17 mg/dL (9-16); Calcium 8.5 mg/dL (8.4-10.2); Carbon Dioxide 24 mmol/L (22-29); Chloride 106 mmol/L (96-108); Creatinine Clr Calc Pharmacy 66.4; Estimated Glomerular Filt Rate > 60; Glucose Random 125 mg/dL (60-115); Magnesium 1.8 mg/dL (1.6-2.6); Phosphorus 4.2 mg/dL (2.7-4.5); Potassium 4.6 mmol/L (3.3-5.1); Sodium 137 mmol/L (135-145)
[2022-12-25] MEDS: 0.9 % Sodium Chloride Flush 3 ML SYRINGE IVFLUSH ×3 (07:04→21:39)
[2022-12-25] MEDS: fentaNYL citrate/PF 100 MCG/2 ML VIAL 25 MCG IVPUSH (07:15)
--- NOTE | 2022-12-25 07:15 | ECG_ITS ---
Test Reason : chest pain Blood Pressure : / mmHG Vent. Rate : 075 BPM Atrial Rate : 075 BPM P-R Int : 182 ms QRS Dur : 084 ms QT Int : 382 ms P-R-T Axes : 077 049 064 degrees QTc Int : 426 ms Normal sinus rhythm Normal ECG No previous ECGs available Referred By: Joaquin Sheriff Electronically Signed By:ELENA SMITH
[2022-12-25] MEDS: Lactulose 20 GM/30 ML SOLUTION 10 GM PO ×2 (09:12→21:38)
[2022-12-25] MEDS: Propranolol HCL 10 MG TABLET PO ×2 (09:12→21:38)
[2022-12-25] MEDS: Levothyroxine Sodium 112 MCG TABLET PO (09:12)
[2022-12-25] MEDS: Perphenazine 2 MG TABLET PO ×2 (09:12→21:38)
[2022-12-25] MEDS: Perphenazine 4 MG TABLET PO ×2 (09:12→21:38)
--- NOTE | 2022-12-25 09:49 | PM.CCPN ---
Subjective Subjective Date of Service: 12/25/22 Interval History: 72-year-old gentleman, active greater than 40 pack-year smoker with underlying TBI and paranoid schizophrenia, also likely COPD now postoperative day 1 after an elective endovascular AAA repair being monitored in the intensive care unit. No events overnight. Critical Care Time (minutes): 0 Physical Exam Vital Signs: Vital Signs: Last Vital Signs Temp 97.5 F 12/25/22 08:00 Pulse 72 12/25/22 08:00 Resp 13 12/25/22 08:00 BP 142/72 H 12/25/22 08:00 Pulse Ox 97 12/25/22 08:00 O2 Del Method Room Air 12/25/22 08:00 O2 Flow Rate 2 12/24/22 13:00 BMI result Body Mass Index 20.8 Const: General: no acute distress, alert and awake Eyes: Sclerae: sclerae normal EOM: EOMs intact bilaterally Neck: Neck: Yes no lymphadenopathy, Yes trachea midline and Yes supple Resp: Effort & Inspection: normal respiratory effort and no respiratory distress Auscultation: clear to auscultation bilaterally Cardio: Rate: regular rate Rhythm: regular rhythm Heart sounds: no gallops, no murmurs and no rubs GI: Palpation (GI): Soft to palpation and Other GI palpation findings present ( Nontender) Auscultation: normal bowel sounds Extrem: General: Yes no pedal edema, No clubbing, No cyanosis and Yes other ( Bilateral femoral access sites without hematoma) Objective Data Labs 12/25/22 05:18 12/25/22 05:18 Labs: Laboratory Results - last 24 hr 12/24/22 12/25/22 12/25/22 19:28 05:11 05:18 WBC 11.4 H RBC 4.10 L Hgb 11.5 L Hct 36.3 L MCV 88.5 MCH 28.0 MCHC 31.7 RDW 14.2 Plt Count 217 D MPV 8.6 L Immature Gran % (Auto) 0.7 H Neut % (Auto) 93.4 H Lymph % (Auto) 3.5 L [place] % (Auto) 2.3 Eos % (Auto) 0.0 Baso % (Auto) 0.1 Lymph # (Auto) 0.4 L [place] # (Auto) 0.3 Eos # (Auto) 0.0 Baso # (Auto) 0.0 Abs Immat Gran (auto) 0.08 H Absolute Neuts (auto) 10.6 H Absolute Nucleated RBC 0.000 Nucleated RBC % (auto) 0.0 Smear Tech's Comments VERIFIED O2 Saturation 98.0 ABG pH at Pt Temp 7.44 ABG pCO2 at Pt Temp 48 H ABG pO2 at Pt Temp 85 ABG HCO3 33 H ABG Base Excess (Actual) 8.0 Sodium 137 Potassium 4.6 Chloride 106 Carbon Dioxide 24 Anion Gap 12 BUN 17 H Creatinine 0.87 Estim Creat Clear Calc 66.4 Estimated GFR > 60 Random Glucose 125 H Calcium 8.5 D Phosphorus 4.2 Magnesium 1.8 Albumin 2.7 L 12/25/22 05:18 WBC 14.0 H RBC 3.37 L Hgb 9.6 L Hct 29.8 L MCV 88.4 MCH 28.5 MCHC 32.2 RDW 14.1 Plt Count 224 MPV 9.0 L Immature Gran % (Auto) 0.5 H Neut % (Auto) 84.7 H Lymph % (Auto) 7.1 L [place] % (Auto) 7.6 Eos % (Auto) 0.0 Baso % (Auto) 0.1 Lymph # (Auto) 1.0 L [place] # (Auto) 1.1 Eos # (Auto) 0.0 Baso # (Auto) 0.0 Abs Immat Gran (auto) 0.07 H Absolute Neuts (auto) 11.8 H Absolute Nucleated RBC 0.000 Nucleated RBC % (auto) 0.0 Smear Tech's Comments O2 Saturation ABG pH at Pt Temp ABG pCO2 at Pt Temp ABG pO2 at Pt Temp ABG HCO3 ABG Base Excess (Actual) Sodium Potassium Chloride Carbon Dioxide Anion Gap BUN Creatinine Estim Creat Clear Calc Estimated GFR Random Glucose Calcium Phosphorus Magnesium Albumin Progress Note: A&P Assessment and plan (1) Paranoid schizophrenia: Status: Acute (2) Alcohol dependence, uncomplicated: Status: Acute (3) Status post percutaneous abdominal aortic aneurysm (AAA) repair: Status: Acute (4) COPD (chronic obstructive pulmonary disease): Status: Acute Plan Assessment: 72-year-old gentleman postoperative day 1 status post elective endovascular AAA repair, now being monitored in the intensive care unit. Plan: Neuro: No acute issues. Cardiac: Postop day 1 after an elective endovascular AAA repair. Vascular surgery service care appreciated. Maintain systolic blood pressure under 180. Pulmonary: No acute issues. Underlying COPD Renal: No acute issues. Endo: No acute issues. GI: No acute issues. ID: No acute issues Heme/Onc: No acute issues. Psych: No acute issues. Underlying paranoid schizophrenia. Miscellaneous: No acute issues. Prophylaxis: Per vascular surgery Diet: Per vascular surgery At this time patient is stable for transfer to [facility]. Transfer discussed with Dr. Weir. Quality Stroke Does the patient have a stroke diagnosis?: No VTE Prior VTE?: No VTE Risk Level:: Medical - moderate - high VTE Device Contraindication: Treatment Not Indicated VTE Drug Contraindication: N/A - Med Ordered
--- NOTE | 2022-12-25 09:49 | HO.VASCPN ---
Subjective Subjective Date of Service: 12/25/22 Patient reports: no new complaints and feels better Interval history: Patient is postop day 1 status post endovascular aneurysm repair. He is doing much better today. Much more talkative and in better spirits. In general no significant pain and tolerating a diet. Now for postop follow-up. Physical Exam Vital Signs: Vital Signs: Last Vital Signs Temp 97.5 F 12/25/22 08:00 Pulse 72 12/25/22 08:00 Resp 13 12/25/22 08:00 BP 142/72 H 12/25/22 08:00 Pulse Ox 97 12/25/22 08:00 O2 Del Method Room Air 12/25/22 08:00 O2 Flow Rate 2 12/24/22 13:00 BMI result Body Mass Index 20.8 Const: General: cooperative, healthy appearing and no acute distress Orientation/consciousness: oriented to person, oriented to place and oriented to time HEENT: Head: Yes normal to inspection Neck: Carotids: no bruits Chest: Chest palpation & inspection: normal inspection of the chest Resp: Effort & Inspection: normal respiratory effort and able to speak in complete sentences Auscultation: clear to auscultation bilaterally Cardio: Rate: regular rate Heart sounds: S1 normal heart sound present and S2 normal heart sound present GI: Inspection: Yes normal to inspection Skin: Other: Bilateral groins well-healed General skin exam: no rashes or lesions noted Wounds: no wounds Neuro: General: oriented to person, oriented to place, oriented to time and CN's II-XI intact bilaterally Extrem: General: Yes normal to inspection, Yes full ROM and Yes no clubbing, cyanosis or edema Psych: Appearance: grossly normal and well kempt Speech and movement: Normal speech and movement present Affect: normal affect Progress Note: A&P Assessment and plan (1) AAA (abdominal aortic aneurysm) without rupture: Status: Acute Assessment and Plan: Patient is stable postop day 1. We will remove A-line and Holland. Patient can be out of bed to chair. Will transfer up to regular floor. Will need physical therapy to see how he does prior to discharge. Time Spent With Patient Time: Total time managing care of this patient today ____ minutes. Procedures Date of Service Date of Service: 12/25/22 Quality Stroke Does the patient have a stroke diagnosis?: No VTE Prior VTE?: No VTE Risk Level:: Surgical - moderate VTE Device Contraindication: N/A - Device Ordered VTE Drug Contraindication: N/A - Med Ordered
--- NOTE | 2022-12-25 10:11 | MHC.CM.PN ---
Pt continues care in ICU following an elective AAA repair. Pt is a LTC resident of [facility]. His guardian is Latrice Jaramillo - full code status: Pt is difficult to understand d/t chronic speech issues but can make needs known. He will return to [facility] when medically stable via BLS transport. CM to follow. Message left for guardian re: d/c plan.
--- NOTE | 2022-12-25 10:44 | PC.NURSE ---
Assumed care at 0700. Upon initial assessment patient c/o 8/10 left sided chest pain. Patient states it feels like a slight heart attack . No other symptoms noted. Dr Sheriff and Dr Weir notified. EKG ordered and completed - see report. No trop per MD. Fentanyl 25mcg ordered and administered with good effect - pain down to 1/10 per patient. Bilateral groin surgical sites C/D/I. Lower extremities continue to be cold to touch w/ slight mottled appearance. Continued absent pulses w/ Doppler to bilateral pedal and L posterior tibial - MDs aware. HR 79 sinus, RR 16, 147/78 map 101, 97% on RA. Holland removed - DTV 1500. Sourav removed. PRN Angios redressed and dated. Patient OOB to chair, awaiting transfer to [facility].
[2022-12-25] MEDS: Heparin Sodium,Porcine 5,000 UNIT/ML VIAL 5000 UNIT SUBCUT ×2 (14:31→21:39)
[2022-12-25] MEDS: Nicotine 7 MG PATCH.TD24 TRANSDERMA (14:34)
--- NOTE | 2022-12-25 15:07 | PC.NURSE ---
Patient arrived to unit into room 474 oriented to room, call diego system and staff. Alert to self, month and president only speech garbled. EMERY to command 4/5 sensation intact, pedal pulses + with doppler stronger to right sensation intact. Denies pain/discomfort. Denies dizziness or vision changes pupils unequal L4 R2. LSCTA denies shortness of breath or chest pain, NSR on tele. BS+X4 abdomen soft non-tender denies nausea/vomiting tolerating diet. DTV on 1530 per ICU report. Bilat groin site CDI no redness swelling or warmth. Alarm for safety. Will continue to monitor
--- NOTE | 2022-12-25 16:33 | HO.POSTANES ---
Post Anesthesia Evaluation Post Anesthesia Evaluation Date of Service: 12/25/22 Vital Signs: Vital Signs Temp Pulse Resp BP Pulse Ox O2 Del Method 12/25/22 16:00 97 F 62 20 111/52 L 96 Room Air 12/25/22 12:00 97.5 F 92 20 123/83 98 Room Air 12/25/22 08:00 97.5 F 72 13 142/72 H 97 Room Air 12/25/22 07:00 81 15 144/76 H 97 Room Air 12/25/22 06:00 81 16 146/76 H 98 Room Air 12/25/22 05:00 98 F 77 17 144/75 H 98 Room Air Anesthesia: General Endotracheal-GETA Mental Status: Awake Pain Control: Satisfactory Nausea/Vomiting: None Hydration: Adequate Anesthesia-Related Issues: No Anes. Related Issues
--- NOTE | 2022-12-25 16:50 | PC.NURSE ---
Bed alarm sounded in room tele sitter paged staff to room notified that patient was getting up out of bed staff responded to alarms immediately witnessed fall patient stood up out of bed and landed on floor on buttocks then leaned back to wall. Per patient I am fine . Returned back to bed assessment unchanged, skin intact other than bilateral groin sites unchanged. Vital signs stable. Dr Weir notified via imageloopertext. Room changed and placed directly next to nurses station. Bed alarm on and bed in lowest locked position. Patient re-educated on use of call diego for assistance. Tele sitter in place. Will continue to monitor
[2022-12-25] MEDS: Atorvastatin Calcium 20 MG TABLET 40 MG PO (21:38)
[2022-12-26 04:00] VITALS: BP 116/75; PULSE 96; RESP 20; TEMP 36.9; O2SAT 97
[2022-12-26 06:00] VITALS: BMI 17.1
[2022-12-26] MEDS: Levothyroxine Sodium 112 MCG TABLET PO (06:18)
[2022-12-26] MEDS: Heparin Sodium,Porcine 5,000 UNIT/ML VIAL 5000 UNIT SUBCUT ×3 (06:18→20:08)
[2022-12-26 06:23] LABS: MANUAL DIFF FLAG NO
[2022-12-26 06:30] LABS: Basophils Percent Auto 0.2 % (0-2); Eosinophils Percent Auto 0.1 % (0-4); Hematocrit 29.7 % (42.0-52.0); Hemoglobin 9.6 g/dl (14.0-18.0); Imm Gran Abs Auto 0.07 X10*3/uL (0.00-0.03); Imm Gran Pct Auto 0.6 % (0.0-0.4); Lymphocytes Absolute Auto 1.5 X10*3/uL (1.2-4.9); Lymphocytes Percent Auto 12.1 % (20-40); Mean Corpuscular HGB Conc 32.3 g/dl (31.0-36.0); Mean Corpuscular Hemoglobin 28.2 pg (27.0-33.0); Mean Corpuscular Volume 87.1 fL (80.0-98.0); Mean Platelet Volume 8.8 fL (9.4-12.4); Monocytes Absolute Auto 1.1 X10*3/uL (0.1-1.2); Monocytes Percent Auto 8.8 % (2-11); Neutrophils Absolute Auto 9.6 x10*3/uL (2.0-8.3); Neutrophils Percent Auto 78.2 % (45-73); Platelet Count 204 X10*3/uL (160-400); Red Blood Count 3.41 X10*6/uL (4.60-5.80); Red Cell Distribution Width 14.1 % (11.0-16.0); White Blood Count 12.2 X10*3/uL (4.8-10.8)
[2022-12-26 06:59] LABS: Anion Gap 9 (12-20); Blood Urea Nitrogen 18 mg/dL (9-16); Calcium 8.7 mg/dL (8.4-10.2); Carbon Dioxide 29 mmol/L (22-29); Chloride 103 mmol/L (96-108); Creatinine Clr Calc Pharmacy 53.1; Estimated Glomerular Filt Rate > 60; Glucose Random 97 mg/dL (60-115); Magnesium 1.8 mg/dL (1.6-2.6); Potassium 4.1 mmol/L (3.3-5.1); Sodium 137 mmol/L (135-145)
[2022-12-26 08:00] VITALS: BP 132/88; PULSE 82; RESP 20; TEMP 36.3; O2SAT 97
[2022-12-26] MEDS: Perphenazine 4 MG TABLET PO ×2 (08:34→20:08)
[2022-12-26] MEDS: Perphenazine 2 MG TABLET PO ×2 (08:34→20:08)
[2022-12-26] MEDS: Lactulose 20 GM/30 ML SOLUTION 10 GM PO ×2 (08:34→20:08)
[2022-12-26] MEDS: Propranolol HCL 10 MG TABLET PO ×2 (08:34→20:08)
[2022-12-26] MEDS: 0.9 % Sodium Chloride Flush 3 ML SYRINGE IVFLUSH ×2 (08:35→15:35)
--- NOTE | 2022-12-26 10:39 | MHC.CM.PN ---
EMR REVIEWED, CM MET W/SURGICAL WHO REPORTS PT SHOULD BE CLEARED TO RETURN TO LTC AT [facility] TOMORROW 12/27, SNF UPDATED AND CLINICALS S[facility], CM WILL CONT TO FOLLOW D/C NEEDS.
--- NOTE | 2022-12-26 11:34 | HO.PM.IMPN ---
Subjective Subjective Date of Service: 12/26/22 Interval History: no complaints Physical Exam Vital Signs: Vital Signs: Last Vital Signs Temp 97.3 F 12/26/22 08:00 Pulse 82 12/26/22 08:00 Resp 20 12/26/22 08:00 BP 132/88 12/26/22 08:00 Pulse Ox 97 12/26/22 08:00 O2 Del Method Room Air 12/26/22 08:00 O2 Flow Rate 2 12/24/22 13:00 BMI result Body Mass Index 17.1 Const: General: cooperative, healthy appearing and no acute distress Orientation/consciousness: oriented to person, oriented to place and oriented to time HEENT: Head: Yes normal to inspection Neck: Carotids: no bruits Chest: Chest palpation & inspection: normal inspection of the chest Resp: Effort & Inspection: normal respiratory effort and able to speak in complete sentences Auscultation: clear to auscultation bilaterally Cardio: Rate: regular rate Heart sounds: S1 normal heart sound present and S2 normal heart sound present GI: Inspection: Yes normal to inspection Skin: Other: Bilateral groins well-healed General skin exam: no rashes or lesions noted Wounds: no wounds Neuro: General: oriented to person, oriented to place, oriented to time and CN's II-XI intact bilaterally Extrem: General: Yes normal to inspection, Yes full ROM and Yes no clubbing, cyanosis or edema Psych: Appearance: grossly normal and well kempt Speech and movement: Normal speech and movement present Affect: normal affect Objective Data Active Medications Acetaminophen (Acetaminophen 325 Mg Tablet) 650 mg PO Q6H PRN PRN Reason: Pain, Mild (Pain Scale 1-3) Artificial Tears (Artificial Tears 15 Ml Drops) 1 drop EYE-BOTH QID PRN PRN Reason: Dry Eyes Atorvastatin Calcium (Atorvastatin Calcium 20 Mg Tablet) 40 mg PO BEDTIME [facility] Last Admin: 12/25/22 21:38 Dose: 40 mg Documented By: SAMUEL Bisacodyl (Bisacodyl 10 Mg Supp.Rect) 10 mg IN DAILY PRN PRN Reason: Constipation Diazepam (Diazepam 2 Mg Tablet) 3 mg PO BID PRN PRN Reason: Anxiety Last Admin: 12/24/22 23:01 Dose: 3 mg Documented By: SAMINA Heparin Sodium (Porcine) (Heparin Sodium,Porcine 5,000 Unit/Ml Vial) 5,000 unit SUBCUT Q8H [facility] Last Admin: 12/26/22 06:18 Dose: 5,000 unit Documented By: SAMUEL Lactulose (Lactulose 20 Gm/30 Ml Solution) 10 gm PO BID [facility] Last Admin: 12/26/22 08:34 Dose: 10 gm Documented By: COURTNEY Levothyroxine Sodium (Levothyroxine Sodium 112 Mcg Tablet) 112 mcg PO DAILY@0600 [facility] Last Admin: 12/26/22 06:18 Dose: 112 mcg Documented By: SAMUEL Morphine Sulfate (Morphine Sulfate 2 Mg/Ml Cartridge) 2 mg IVPUSH Q4H PRN; Protocol PRN Reason: Pain, Severe (Pain Scale 7-10) Nicotine (Nicotine 7 Mg Patch.Td24) 7 mg TRANSDERMA Q24H [facility] Last Admin: 12/25/22 14:34 Dose: 7 mg Documented By: MIYA Oxycodone HCl (Oxycodone Hcl Immed Release 5 Mg Tablet) 5 mg PO Q4H PRN PRN Reason: Pain, Moderate(Pain Scale 4-6) Perphenazine (Perphenazine 2 Mg Tablet) 2 mg PO BID [facility] Last Admin: 12/26/22 08:34 Dose: 2 mg Documented By: COURTNEY Perphenazine (Perphenazine 4 Mg Tablet) 4 mg PO BID [facility] Last Admin: 12/26/22 08:34 Dose: 4 mg Documented By: COURTNEY Propranolol HCl (Propranolol Hcl 10 Mg Tablet) 10 mg PO BID [facility]; Protocol Last Admin: 12/26/22 08:34 Dose: 10 mg Documented By: COURTNEY Senna (Sennosides 8.6 Mg Tablet) 17.2 mg PO DAILY PRN PRN Reason: Constipation Sodium Biphosphate/Sodium Phosphate (Sodium Phosphate,[place]-Dibasic 133 Ml Enema) 118 ml IN DAILY PRN PRN Reason: Constipation Sodium Chloride (0.9 % Sodium Chloride Flush 3 Ml Syringe) 3 ml IVFLUSH QSHIFT [facility] Last Admin: 12/26/22 08:35 Dose: 3 ml Documented By: COURTNEY Labs 12/26/22 06:10 12/26/22 06:10 Labs: Laboratory Results - last 24 hr 12/26/22 12/26/22 06:10 06:10 MCV 87.1 MCH 28.2 MCHC 32.3 RDW 14.1 Plt Count 204 MPV 8.8 L Immature Gran % (Auto) 0.6 H Neut % (Auto) 78.2 H Lymph % (Auto) 12.1 L [place] % (Auto) 8.8 Eos % (Auto) 0.1 Baso % (Auto) 0.2 Lymph # (Auto) 1.5 [place] # (Auto) 1.1 Eos # (Auto) 0.0 Baso # (Auto) 0.0 Abs Immat Gran (auto) 0.07 H Absolute Neuts (auto) 9.6 H Absolute Nucleated RBC 0.000 Nucleated RBC % (auto) 0.0 Anion Gap 9 L Estim Creat Clear Calc 53.1 Estimated GFR > 60 Random Glucose 97 Calcium 8.7 Phosphorus 3.0 Magnesium 1.8 Assessment and Plan (1) Paranoid schizophrenia: Status: Acute Plan 72M PMH TBI, paranoid schizophrenia, AAA, COPD, admitted for elective AAA repair s/p elective AAA repair management per vascular PT history of TBI, paranoix schizophrenia continue trilafon hypothryoid synthroid copd stable dvt prophylaxis - hep sq full code Time Spent With Patient Time: Total time managing care of this patient today ____ minutes. Quality Stroke Does the patient have a stroke diagnosis?: No VTE Prior VTE?: No VTE Risk Level:: Surgical - moderate VTE Device Contraindication: N/A - Device Ordered VTE Drug Contraindication: N/A - Med Ordered
[2022-12-26 11:56] VITALS: BP 143/87; PULSE 92; RESP 20; TEMP 37; O2SAT 97
--- NOTE | 2022-12-26 12:09 | P.PNVS_ITS ---
Subjective Subjective Date of Service: 12/26/22 Patient reports: no new complaints and feels better Interval history: Patient seen and examined. No significant events overnight. Yesterday he did have a fall. In general he feels fairly well. Pain well controlled. Remains unsteady on feet. Physical Exam Vital Signs: Vital Signs: Last Vital Signs Temp 98.6 F 12/26/22 11:56 Pulse 92 12/26/22 11:56 Resp 20 12/26/22 11:56 BP 143/87 H 12/26/22 11:56 Pulse Ox 97 12/26/22 11:56 O2 Del Method Room Air 12/26/22 11:56 O2 Flow Rate 2 12/24/22 13:00 BMI result Body Mass Index 17.1 Const: General: cooperative, healthy appearing and comfortable Orientation/consciousness: oriented to person, oriented to place and oriented to time HEENT: Head: Yes normal to inspection Neck: Neck: Yes normal visual inspection Carotids: no bruits Chest: Chest palpation & inspection: normal inspection of the chest Resp: Effort & Inspection: normal respiratory effort and able to speak in complete sentences Auscultation: clear to auscultation bilaterally, no crackles, no rales, no rhonchi and no wheezes Cardio: Rate: regular rate Rhythm: regular rhythm Heart sounds: S1 normal heart sound present and S2 normal heart sound present Bruits: no carotid bruits Peripheral pulses: Peripheral pulses 2+ throughout GI: Inspection: Yes normal to inspection Skin: Other: Bilateral groins well-healed Wounds: no wounds Hair: normal Neuro: General: oriented to person, oriented to place and oriented to time Cranial nerves: Yes CN's II-XII intact bilaterally and Yes Normal hearing present Cognition (Neuro): normal cognition Motor exam (neuro): 5/5 motor strength present throughout Extrem: Other: venous exam: No significant superficial varicosities or spider telangiectasias, minimal edema General: No clubbing, No cyanosis and No edema Psych: Appearance: grossly normal Mental Status: mental status grossly normal Speech and movement: Normal speech and movement present Progress Note: A&P Assessment and plan (1) AAA (abdominal aortic aneurysm) without rupture: Status: Acute Assessment and Plan: In short patient has done extremely well status post endovascular repair. Will have patient start with physical therapy. Should he continue to progress back current status will plan for discharge back to [facility]. Thank you to the hospitalist for their assistance in his care. Time Spent With Patient Time: Total time managing care of this patient today ____ minutes. Procedures Date of Service Date of Service: 12/26/22 Quality Stroke Does the patient have a stroke diagnosis?: No VTE Prior VTE?: No VTE Risk Level:: Surgical - moderate VTE Device Contraindication: N/A - Device Ordered VTE Drug Contraindication: N/A - Med Ordered
[2022-12-26 13:01] VITALS: BP 143/87; PULSE 92; O2SAT 97
[2022-12-26] MEDS: Nicotine 7 MG PATCH.TD24 TRANSDERMA (13:18)
[2022-12-26 15:26] VITALS: BP 130/82; PULSE 96; RESP 17; TEMP 36.4; O2SAT 97
[2022-12-26 19:37] VITALS: BP 153/103; PULSE 97; RESP 22; TEMP 37.1; O2SAT 97
[2022-12-26] MEDS: Atorvastatin Calcium 20 MG TABLET 40 MG PO (20:08)
[2022-12-26] MEDS: diazePAM 2 MG TABLET 3 MG PO (20:09)
[2022-12-27] VITALS: BP 108/84; PULSE 88; RESP 18; TEMP 36.4; O2SAT 97
[2022-12-27] MEDS: 0.9 % Sodium Chloride Flush 3 ML SYRINGE IVFLUSH ×2 (00:01→09:42)
[2022-12-27 04:00] VITALS: BP 121/84; PULSE 82; RESP 16; TEMP 37; O2SAT 97
[2022-12-27] MEDS: Levothyroxine Sodium 112 MCG TABLET PO (05:44)
[2022-12-27] MEDS: Heparin Sodium,Porcine 5,000 UNIT/ML VIAL 5000 UNIT SUBCUT ×2 (05:44→12:26)
[2022-12-27 06:00] VITALS: BMI 17.3
[2022-12-27 07:12] LABS: Hematocrit 28.9 % (42.0-52.0); Hemoglobin 9.3 g/dl (14.0-18.0); Mean Corpuscular HGB Conc 32.2 g/dl (31.0-36.0); Mean Corpuscular Hemoglobin 28.1 pg (27.0-33.0); Mean Corpuscular Volume 87.3 fL (80.0-98.0); Mean Platelet Volume 9.3 fL (9.4-12.4); Platelet Count 185 X10*3/uL (160-400); Red Blood Count 3.31 X10*6/uL (4.60-5.80); Red Cell Distribution Width 14.2 % (11.0-16.0); White Blood Count 10.4 X10*3/uL (4.8-10.8)
[2022-12-27 07:13] VITALS: BP 131/86; PULSE 79; RESP 18; TEMP 36.7; O2SAT 97
[2022-12-27 07:29] LABS: Anion Gap 10 (12-20); Blood Urea Nitrogen 16 mg/dL (9-16); Calcium 8.6 mg/dL (8.4-10.2); Carbon Dioxide 27 mmol/L (22-29); Chloride 102 mmol/L (96-108); Creatinine Clr Calc Pharmacy 62.6; Estimated Glomerular Filt Rate > 60; Glucose Fasting 97 mg/dL (60-99); Sodium 135 mmol/L (135-145)
--- NOTE | 2022-12-27 09:13 | MHC.CM.PN ---
IMM 12/27/22, PT MEDICALLY CLEARED FOR D/C BACK TO [facility], PT;S GUARDIAN RITCHIE DIAMOND AND SISTER GABRIEL NOTIFIED AND AGREEABLE TO D/C [facility] FOR BLS TRANSPORT.
[2022-12-27] MEDS: Perphenazine 2 MG TABLET PO (09:42)
[2022-12-27] MEDS: Perphenazine 4 MG TABLET PO (09:42)
[2022-12-27] MEDS: Propranolol HCL 10 MG TABLET PO (09:42)
[2022-12-27] MEDS: Lactulose 20 GM/30 ML SOLUTION 10 GM PO (09:42)
--- NOTE | 2022-12-27 09:56 | PM.DS ---
DS: Providers Provider Date of Service: 12/27/22 Date of admission: 12/24/22 07:38 Primary care physician: Jeffrey Delatorre DO Consults: 12/25/22 09:03 Consult to Hospitalist Routine Comment: Consulting Provider: Hospitalist Reason For Exam: Medical comanagement with vascular suregry DS: Diagnosis Discharge Diagnosis (1) AAA (abdominal aortic aneurysm) without rupture: Status: Acute DS: Summary Hospital Course Hospital Course: Patient underwent endovascular aneurysm repair on 12/24/2022. He did extremely well postoperatively. He was observed 1 night in the ICU. After that he was transferred to the floor to ensure that he was tolerating a diet and he developed adequate strength. He was ambulated with physical therapy I am was able to go about 250 ft fairly safely. He was subsequently discharged. Condition upon discharge stable. Status at Discharge Functional status at discharge: uses cane/walker Overall status at discharge: patient is back to baseline Time Spent with Patient Time attestation: Total time managing care of this patient today ____ minutes. Discharge coordination time: Greater than 30 minutes Quality: Safe Use of Opioids Does Pt have an Active Cancer Diagnosis on the Problem List?: No Quality: Stroke Does the patient have a stroke diagnosis?: No Physical Exam Vital Signs: Vital Signs: Last Vital Signs Temp 98.1 F 12/27/22 07:13 Pulse 79 12/27/22 07:13 Resp 18 12/27/22 07:13 BP 131/86 12/27/22 07:13 Pulse Ox 97 12/27/22 07:13 O2 Del Method Room Air 12/27/22 07:13 O2 Flow Rate 2 12/24/22 13:00 BMI result Body Mass Index 17.3 Const: General: cooperative, healthy appearing and no acute distress Orientation/consciousness: oriented to person, oriented to place and oriented to time HEENT: Head: Yes normal to inspection Neck: Carotids: no bruits Chest: Chest palpation & inspection: normal inspection of the chest Resp: Effort & Inspection: normal respiratory effort and able to speak in complete sentences Auscultation: clear to auscultation bilaterally Cardio: Rate: regular rate Heart sounds: S1 normal heart sound present and S2 normal heart sound present GI: Inspection: Yes normal to inspection Skin: Other: Bilateral groins well-healed General skin exam: no rashes or lesions noted Neuro: General: oriented to person, oriented to place, oriented to time and CN's II-XI intact bilaterally Extrem: General: Yes normal to inspection, Yes full ROM and Yes no clubbing, cyanosis or edema Psych: Appearance: grossly normal and well kempt Speech and movement: Normal speech and movement present Affect: normal affect DS: Data Data Completed and Pending Labs on day of discharge: Laboratory Results - last 24 hr 12/27/22 12/27/22 06:40 06:40 WBC 10.4 RBC 3.31 L Hgb 9.3 L Hct 28.9 L MCV 87.3 MCH 28.1 MCHC 32.2 RDW 14.2 Plt Count 185 MPV 9.3 L Absolute Nucleated RBC 0.000 Nucleated RBC % (auto) 0.0 Sodium 135 Potassium 4.0 Chloride 102 Carbon Dioxide 27 Anion Gap 10 L BUN 16 Creatinine 0.71 Estim Creat Clear Calc 62.6 Estimated GFR > 60 Fasting Glucose 97 Calcium 8.6 Discharge Plan Discharge Patient Disposition: Xfer [facility] Discharge Diagnosis: Status post endovascular aneurysm repair Referrals: [facility] [Outside] - 1 Day (RESUMPTION OF CARE) Jeffrey Delatorre DO [Primary Care Provider] - 1 Week Discharge Medications: Continued lactulose 10 gram/15 mL solution 15 ml PO BID perphenazine 4 mg tablet 4 mg PO BID perphenazine 2 mg tablet 2 mg PO BID propranolol 10 mg tablet 10 mg PO BID simvastatin 40 mg tablet 40 mg PO BEDTIME levothyroxine 112 mcg tablet 112 mcg PO DAILY diazepam 2 mg tablet 3 mg PO BID PRN (Reason: Anxiety) bisacodyl [Dulcolax (bisacodyl)] 10 mg suppository 10 mg AK DAILY PRN (Reason: Constipation) acetaminophen 325 mg capsule 650 mg PO Q6H PRN (Reason: Pain) Fleet Enema 19-7 gram/118 mL enema 118 ml AK DAILY PRN (Reason: Constipation) polyvinyl alcohol [Artificial Tears (polyvin alc)] 1.4 % drops 1 drp ophthalmic (eye) TID-QID PRN (Reason: Dry Eyes) nicotine 7 mg/24 hr patch 24 hour 1 patch transdermal Q24H sennosides [senna] 8.6 mg tablet 17.2 mg PO DAILY PRN (Reason: Constipation) bethanechol chloride 50 mg tablet 50 mg PO BID 30 Days Qty: 60 1RF Discharge Orders: Discharge Order (Routine); Ordered 12/27/22 Ordered By: Rodrigo Weir Diet: Advance to usual diet Activity on Discharge: As tolerated Stand Alone Forms: Patient Portal Discharge page Care Plan Goals: Monitor for aortic aneurysm Health Concerns: Status post endovascular aneurysm repair Plan of Treatment: Surveillance follow-up of stent graft placement Assessment: Status post endovascular aneurysm
[2022-12-27 11:05] VITALS: BP 130/80; PULSE 86; RESP 20; TEMP 36.8; O2SAT 96
[2022-12-27] MEDS: Nicotine 7 MG PATCH.TD24 TRANSDERMA (12:28)
== END 2022-12-27 17:01 | DRG 269 ==
LOC: HO.SSSA 07:46 → HO.ICU 11:57 → HO.IMC 12-25 11:05
PROVIDERS: Internal Medicine; Internal Medicine Pulmonary Disease; Physician Assistant Medical; Admitting Provider Surgery Vascular Surgery; PCP Hospitalist; Visit Provider Surgery Vascular Surgery
PROC: 04V03ZZ Restriction of Abdominal Aorta, Percutaneous Approach (ICD-10-PCS; principal; 2022-12-24 07:30)
DX: I71.40 Abdominal aortic aneurysm, without rupture, unspecified (principal); F20.0 Paranoid schizophrenia; J44.9 Chronic obstructive pulmonary disease, unspecified; E03.9 Hypothyroidism, unspecified; E78.5 Hyperlipidemia, unspecified; Z20.822 Contact with and (suspected) exposure to COVID-19; Z87.820 Personal history of traumatic brain injury; Z79.890 Hormone replacement therapy; Z79.899 Other long term (current) drug therapy
CPT/HCPCS: 36415; 80048; 82040; 82803; 83735; 84100; 85025; 85027; 85610; 85730; 86850; 86900; 86901; 87635; 93005; 97162; C1725; C1726; C1758; C1760; C1768; C1769; C1874; C1887; C1894; C2628; J0690; J1100; J1170; J1643; J2250; J2405; J2795; J3010

== ENCOUNTER → 2023-01-08 09:49 | Outpatient (BNVA) | payer MEDICARE, MEDICAID, SELFPAY | PROVIDERS: PCP Hospitalist; Visit Provider Surgery Vascular Surgery | DX: I71.40 Abdominal aortic aneurysm, without rupture, unspecified (principal) | CPT/HCPCS: 99212 ==

== ENCOUNTER → 2023-01-16 13:54 | Outpatient (BNVA) | payer MEDICARE, MEDICAID, SELFPAY | PROVIDERS: PCP Hospitalist; Visit Provider Urology | DX: R33.9 Retention of urine, unspecified (principal) | CPT/HCPCS: 52000; 99212 ==

== ENCOUNTER 2023-04-01 10:40 | Outpatient (REF) | payer MEDICARE, MEDICAID, SELFPAY ==
--- NOTE | ~2023-04-01 | CT_ITS ---
STUDY PERFORMED: CTA ABDOMEN AND PELVIS WITHOUT AND WITH CONTRAST HISTORY: Abdominal aortic aneurysm. DESCRIPTION: Routine abdomen and pelvis CTA protocol with contrast was performed. 80 mL of Omnipaque 350 was administered. 3D POSTPROCESSIN-D MIP images were processed from the initial data set by the registered radiologic technologist on the technologist workstation under concurrent physician supervision. DOSE LOWERING TECHNIQUES: This CT examination was performed using dose optimization techniques as appropriate, variously including the following: - Automated exposure control - Adjustment of mA and/or kV according to patient size (this includes techniques or standardized protocols for targeted exams where dose is matched to indication/reason for exam; i.e. extremities or head) - Use of iterative reconstruction technique DOSE LENGTH PRODUCT: 425 mGycm COMPARISON: CTA abdomen 11/28/2022. FINDINGS: VASCULAR: ABDOMINAL AORTA: Infrarenal abdominal aortic aneurysm status post endovascular aortic repair. There is lamellated calcium within the aneurysm sac that is present on precontrast imaging. There is no evidence of endoleak on arterial phase imaging. The delayed phase was not obtained. The aneurysm sac measures 6.8 x 6.6 cm in diameter. When measured similarly, the aneurysm sac measured 6.9 x 6.5 cm previously. There is been no substantial change in the size of the aneurysm sac. RIGHT ILIAC ARTERY: [id number] atherosclerosis without hemodynamically significant disease. LEFT ILIAC ARTERY: [id number] atherosclerosis without hemodynamically significant disease. CELIOMESENTERIC ARTERIES: The celiac origin is occluded. Robust collateralization through SMA collaterals. The right hepatic artery arises from the SMA. An accessory left hepatic artery arises from left gastric artery. The SMA is patent. The BERNARDO is occluded off the aneurysm sac and then reconstitutes distally. RENAL ARTERIES: Moderate stenosis of the left renal artery origin. Mild stenosis of the right renal artery origin. The nephrograms are symmetric. NONVASCULAR: Lung Bases: The visualized lung bases are unremarkable. Liver, Gallbladder and Biliary Tree: There are simple cysts in the liver. No follow-up imaging is recommended. No biliary ductal dilatation. The gallbladder is unremarkable with no evidence of radiopaque gallstones, gallbladder wall thickening, or obvious pericholecystic inflammatory changes. Pancreas: No discrete mass or ductal dilatation. Spleen: Normal Adrenal Glands: No adrenal mass. Kidneys and Ureters: Symmetric cortical thinning bilaterally. lobulation. Simple cyst in the lower pole right kidney. No follow-up imaging is recommended. No nephrolithiasis or hydronephrosis. Bladder: Diffuse irregular bladder wall thickening with a right posterior diverticulum. There is calcification in the thickened diverticular wall. Gastrointestinal Tract: The small bowel is normal in caliber. Left-sided colonic diverticulosis without evidence of diverticulitis. Abdominal Wall: No significant hernia is appreciated. Lymph Nodes: No adenopathy. Pelvic Viscera: Unremarkable. Osseous Structures: Degenerative changes in the spine. No suspicious osseous lesions. Degenerative changes in the hips. CT/CT angio abdomen pelvis IMPRESSION: New endovascular aortic repair of the infrarenal abdominal aortic aneurysm. The aneurysm sac measures 6.8 x 6.6 cm compared to 6.9 x 6.5 cm pretreatment. No evidence of endoleak on arterial phase imaging. Diffuse irregular thickening of the urinary bladder. Right posterior bladder wall diverticulum with thickened wall containing calcification. An underlying mass cannot be excluded by CT. Recommend correlation with cystoscopy and urine cytology. Fleischner guidelines were followed.
[2023-04-01] MEDS: iohexoL 350 MG/ML 100 ML INFUS..BTL IV (11:13)
[2023-04-02 08:46] LABS: Creatinine POC 0.5 mg/dL (0.5-1.4); GFR POC > 60
== END 2023-04-01 10:41 | disposition home or self-care (01) ==
LOC: HO.CT 10:40
PROVIDERS: PCP Hospitalist; Visit Provider Surgery Vascular Surgery
DX: I71.40 Abdominal aortic aneurysm, without rupture, unspecified (principal)
CPT/HCPCS: 74174; 82565; Q9967

== ENCOUNTER 2023-04-09 11:02 | Outpatient (AMB) | payer MEDICARE, MEDICAID, SELFPAY ==
--- NOTE | 2023-04-09 11:03 | A.OFFVIS_ITS ---
Intake Vital Signs 04/09/23 11:04 Height 5 ft 5 in Weight 103 lb BMI 17.1 Intake Visit Reasons: 3 month f/u s/p CTA abd/pel 04/01/23 Intake Note: 3 mo follow up EVAR 12/31/22 s/p CTA Abd/pelvis 04/01/23. Pt states he is feeling good, resides at [facility] Accompanied by: COMPLAINTS COORDINATOR [facility] Allergies cefpodoxime Allergy (Intermediate, Verified 04/09/23 11:08) Rash HPI 3 month f/u s/p CTA abd/pel 04/01/23 HPI Details 73-year-old gentleman presents for follow-up status post endovascular repair. No interval issues. He is a resident at [facility]. He now presents for routine [address] scan [facility] Medical History Age-related nuclear cataract, bilateral Alcohol dependence, uncomplicated Benign prostatic hyperplasia without lower urinary tract symptoms Constipation, unspecified COVID-19 vaccine series completed Dysphagia, oropharyngeal phase History of COVID-19 History of falling Hyperlipidemia, unspecified Hypothyroidism, unspecified Impulse disorder, unspecified Lefort i fracture, initial encounter for closed fracture Muscle weakness (generalized) Other abnormalities of gait and mobility Other specified intracranial injury without loss of consciousness, subsequent encounter Pain in left hip Paralytic gait Paranoid schizophrenia Personal history of COVID-19 Personal history of traumatic brain injury Primary generalized (osteo)arthritis Repeated falls Resides in intermediate facility Trichotillomania Unspecified abnormalities of gait and mobility Unspecified lack of coordination Unsteadiness on feet Weakness Surgical History History of facial surgery Family History Unknown No problems noted. Social History Household Members: Unknown / Unable to assess Housing Other:: [facility] Are you a primary point of care technician to a significant other at home: No Do you presently have visiting nurse or other home services: Yes (resides @ [facility]) Unable to assess alcohol history related to: Unable to respond and Unknown Patient Tobacco Use Status: Tobacco use Unknown Tobacco use type: Cigarette Cigarettes Per Day: 4 Years Smoked: 57 Advance Directives Date on File: 12/05/22 Current occupational status: disabled Review of Systems Const All systems reviewed & are unremarkable except as noted in HPI and below Reports no additional complaints ENT Reports Normal hearing present Card Denies chest pain, Denies chest pain at rest, Denies chest pain with activity and Denies pedal edema Resp Denies cough GI Denies abdominal pain Musc Denies abnormal gait, Denies muscle cramps and Denies radiating pain into limb Skin/Breast Denies skin ulcer and Denies wounds Neuro Reports Normal hearing present and Denies abnormal gait Psych Reports no additional complaints Physical Exam Vital Signs: BMI result Body Mass Index 17.1 Const General: cooperative, healthy appearing and comfortable Orientation/consciousness: oriented to person, oriented to place and oriented to time HEENT Head: Yes normal to inspection Neck Neck: Yes normal visual inspection Carotids: no bruits Chest Chest palpation & inspection: normal inspection of the chest Resp Effort & Inspection: normal respiratory effort and able to speak in complete sentences Auscultation: clear to auscultation bilaterally, no crackles, no rales, no rhonchi and no wheezes Cardio Rate: regular rate Rhythm: regular rhythm Heart sounds: S1 normal heart sound present and S2 normal heart sound present Bruits: no carotid bruits Peripheral pulses: Peripheral pulses 2+ throughout GI Inspection: Yes normal to inspection Skin Wounds: no wounds Hair: normal Neuro General: oriented to person, oriented to place and oriented to time Cranial nerves: Yes CN's II-XII intact bilaterally and Yes Normal hearing present Cognition (Neuro): normal cognition Motor exam (neuro): 5/5 motor strength present throughout Extrem Other: venous exam: No significant superficial varicosities or spider telangiec tasias, minimal edema General: No clubbing, No cyanosis and No edema Psych Appearance: grossly normal Mental Status: mental status grossly normal Speech and movement: Normal speech and movement present Results Reviewed Results Reviewed: CT angiogram dated 04/01/2023 written report and images were reviewed. Aortic endograft appears to be in appropriate position. Sac site this appears to be decreasing. In addition no evidence of endoleak. Assessment & Plan Assessment & Plan (1) AAA (abdominal aortic aneurysm) without rupture: Comment: 12/24/2022 - endovascular aneurysm repair with Endologix AFX2 Code(s): I71.40 - Abdominal aortic aneurysm, without rupture, unspecified Plan: Stable [address] scan[address] Will plan for surveillance follow-up in approximately 6 months time. Thank you for allowing us to assist in his care. Coding Level of Care Code Est Pt Level 4 (04953) Diagnoses AAA (abdominal aortic aneurysm) without rupture I71.40
[2023-04-09 11:04] VITALS: BMI 17.1
== END 2023-04-09 11:27 | disposition home or self-care (01) ==
PROVIDERS: PCP Hospitalist; Visit Provider Surgery Vascular Surgery
DX: I71.40 Abdominal aortic aneurysm, without rupture, unspecified (principal)
CPT/HCPCS: 99213

== ENCOUNTER → 2023-04-09 11:02 | Outpatient (BNVA) | payer MEDICARE, MEDICAID, SELFPAY | PROVIDERS: PCP Hospitalist; Visit Provider Surgery Vascular Surgery | DX: Z48.812 Encounter for surgical aftercare following surgery on the circulatory system (principal) | CPT/HCPCS: 99212 ==

== ENCOUNTER 2023-04-11 11:01 | Outpatient (AMB) | payer MEDICARE, MEDICAID, SELFPAY ==
--- NOTE | 2023-04-11 11:09 | MHC.OFFVIS ---
Intake Vital Signs 04/11/23 11:14 Height 5 ft 5 in BP 110/62 Blood Pressure Location Lt brachial Position Sitting Pulse 77 Pulse Source Doppler Pulse Oximetry (%) 97 Oxygen Delivery Method Room Air Intake Visit Reasons: COPD Allergies cefpodoxime Allergy (Intermediate, Verified 04/11/23 11:11) Rash HPI COPD HPI Details 73-year-old gentleman, active greater than 40 pack-year smoker with underlying TBI and paranoid schizophrenia now followed for pulmonary emphysema without fixed obstruction. Patient denies any pulmonary related concerns or complaints. [facility] Medical History Age-related nuclear cataract, bilateral Alcohol dependence, uncomplicated Benign prostatic hyperplasia without lower urinary tract symptoms Constipation, unspecified COVID-19 vaccine series completed Dysphagia, oropharyngeal phase History of COVID-19 History of falling Hyperlipidemia, unspecified Hypothyroidism, unspecified Impulse disorder, unspecified Lefort i fracture, initial encounter for closed fracture Muscle weakness (generalized) Other abnormalities of gait and mobility Other specified intracranial injury without loss of consciousness, subsequent encounter Pain in left hip Paralytic gait Paranoid schizophrenia Personal history of COVID-19 Personal history of traumatic brain injury Primary generalized (osteo)arthritis Repeated falls Resides in residential facility Trichotillomania Unspecified abnormalities of gait and mobility Unspecified lack of coordination Unsteadiness on feet Weakness Surgical History History of facial surgery Family History Unknown No problems noted. Social History Household Members: Unknown / Unable to assess Housing Other:: [facility] Are you a primary career technical education teacher to a significant other at home: No Do you presently have visiting nurse or other home services: Yes (resides @ [facility]) Unable to assess alcohol history related to: Unable to respond and Unknown Patient Tobacco Use Status: Tobacco use Unknown Tobacco use type: Cigarette Cigarettes Per Day: 4 Years Smoked: 57 Advance Directives Date on File: 12/05/22 Current occupational status: disabled Review of Systems Const Denies daytime sleepiness, Denies excessive sweating, Denies fatigue, Denies fever(s), Denies lethargy, Denies malaise, Denies night sweats, Denies snoring and Denies weight loss Eyes Denies blurry vision and Denies itchy eyes ENT Denies nasal congestion, Denies post nasal drip, Denies sinus pain, Denies sinus pressure and Denies other ( Thrush) Card Denies chest pain, Denies pedal edema, Denies dyspnea, Denies orthopnea and Denies paroxysmal nocturnal dyspnea Resp Denies cough, Denies hemoptysis, Denies excessive phlegm production, Denies dyspnea, Denies snoring and Denies wheezing GI Denies abdominal pain and Denies heartburn Musc Denies myalgias, Denies arthralgias and Denies joint swelling Skin/Breast Denies rash Neuro Denies memory loss and Denies seizure-like activity Psych Denies abnormal sleep pattern, Denies anxiety and Denies memory loss Endo Denies excessive sweating, Denies fatigue and Denies heat intolerance Joni/Lymph Denies easy bruising Aller/Immun Denies itchy eyes, Denies seasonal rhinorrhea and Denies wheezing Physical Exam Vital Signs: Last Vital Signs Pulse 77 04/11/23 11:14 BP 110/62 04/11/23 11:14 Pulse Ox 97 04/11/23 11:14 Oxygen Delivery Method Room Air 04/11/23 11:14 Const General: no acute distress and alert Nutritional Appearance: not obese Orientation/consciousness: Other orientation findings ( oriented) HEENT Head: Yes atraumatic Eyes General: appearance normal, both eyes and all related structures Sclerae: sclerae normal EOM: EOMs intact bilaterally Neck Neck: Yes supple Lymphatic: no lymphadenopathy noted Resp Effort & Inspection: normal respiratory effort and no use of accessory muscles Auscultation: clear to auscultation bilaterally Cardio Rate: regular rate Rhythm: regular rhythm Heart sounds: no gallops, no murmurs and no rubs Skin General skin exam: other ( warm) Extrem General: No clubbing, No cyanosis and No edema Assessment & Plan Assessment & Plan (1) Pulmonary emphysema: Code(s): J43.9 - Emphysema, unspecified Plan: Pulmonary emphysema without fixed obstruction. Essentially asymptomatic. Continue to monitor clinically. Albuterol MDI as needed. (2) Pulmonary nodules: Code(s): R91.8 - Other nonspecific abnormal finding of lung field Plan: Results of CT chest from December of 2022 reviewed. Bilateral small pulmonary nodules. Will repeat CT chest in December of 2023. Medications: New albuterol sulfate 90 mcg/actuation 2 puffs inhalation Q4-6H 30 days PRN 1 ea 6RF shortness of breath or wheezing Coding Level of Care Code Est Pt Level 4 (87800) Diagnoses Pulmonary emphysema J43.9 Pulmonary nodules R91.8
[2023-04-11 11:14] VITALS: BP 110/62; PULSE 77; O2SAT 97
== END 2023-04-11 11:45 | disposition home or self-care (01) ==
PROVIDERS: PCP Hospitalist; Visit Provider Internal Medicine Pulmonary Disease
DX: J43.9 Emphysema, unspecified (principal); R91.8 Other nonspecific abnormal finding of lung field
CPT/HCPCS: 99214

== ENCOUNTER → 2023-04-11 11:01 | Outpatient (BNVA) | payer MEDICARE, MEDICAID, SELFPAY | PROVIDERS: PCP Hospitalist; Visit Provider Internal Medicine Pulmonary Disease | DX: J43.9 Emphysema, unspecified (principal); R91.8 Other nonspecific abnormal finding of lung field | CPT/HCPCS: 99212 ==

== ENCOUNTER 2023-07-14 10:23 | Inpatient (IN) | payer MEDICARE, MEDICAID, SELFPAY ==
[2023-07-14] VITALS (9 sets, daily range): BP systolic 93–124; BP diastolic 58–83; PULSE 83–92; RESP 14–18; TEMP 36.4–36.6; O2SAT 88–96; BMI 19.3
--- NOTE | ~2023-07-14 | XR_ITS ---
EXAMINATION: XR CHEST CLINICAL INFORMATION: Chest pain COMPARISON: Previous chest CT December 2022 and chest x-ray November 2022 TECHNIQUE: Frontal view of the chest was obtained. FINDINGS: The cardiac and mediastinal contours are stable. The lungs are well inflated. There are coarse lung markings. There is question bronchial wall thickening at the lung bases, left greater than right. Question left base pulmonary nodule measuring 1 cm on one of 2 views. It is uncertain whether this corresponds to cavitary left pulmonary nodule seen on chest CT or represents a nipple shadow. No pleural effusion or pneumothorax. New aortic stent graft partially visualized in the upper abdomen. Old bilateral rib fractures. Bony structures are otherwise unremarkable. XR/XR chest 1V IMPRESSION: Well-inflated lungs. Question bronchial wall thickening or airways disease at the lung bases. Question left base pulmonary nodule. It is uncertain whether this corresponds to cavitary pulmonary nodule seen on previous chest CT or represents a nipple shadow. Follow-up elective chest CT imaging recommended.
--- NOTE | 2023-07-14 12:37 | ECG_ITS ---
Test Reason : DYSPNEA Blood Pressure : / mmHG Vent. Rate : 087 BPM Atrial Rate : 087 BPM P-R Int : 180 ms QRS Dur : 074 ms QT Int : 372 ms P-R-T Axes : 075 069 072 degrees QTc Int : 447 ms Normal sinus rhythm Nonspecific ST abnormality Abnormal ECG When compared with ECG of 25-DEC-2022 07:16, No significant change was found Referred By: Stacey Rivas Electronically Signed By:Franklin Hancock
--- NOTE | 2023-07-14 12:39 | PC.NURSE ---
pt a&ox3, vss and up to date aside from slightly hypotensive. 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 pt has no complaints/denies pain. pt has productive/wet cough present. no sob/wob noted. pt able to speak in full/clear sentences w/o difficulty. respirations even/slightly labored. resting comfortably in no apparent distress. call diego placed within reach.
--- NOTE | 2023-07-14 12:40 | ED_ITS ---
HPI - SOB/Dyspnea General Chief Complaint: Dyspnea Stated Complaint: ABNORMAL LABS Time Seen by Provider: 07/14/23 10:35 History of Present Illness HPI Narrative: Patient is a 73-year-old male sent in from the retirement with coughing upper respiratory symptoms having a episode of low blood pressure. Was started on doxycycline this morning. Was noted to have a decreased O2 sat of 88%. Sent in for further evaluation. Related Data Home Medications Medication Instructions Recorded Confirmed acetaminophen 325 mg capsule 650 mg PO Q6H PRN Pain 09/20/22 12/13/22 bisacodyl 10 mg rectal suppository 10 mg AK DAILY PRN Constipation 09/20/22 12/13/22 (Dulcolax (bisacodyl)) diazepam 2 mg tablet 3 mg PO BID PRN Anxiety 09/20/22 12/13/22 sodium phosphates 19 gram-7 118 ml AK DAILY PRN Constipation 09/20/22 12/13/22 gram/118 mL enema (Fleet Enema) lactulose 10 gram/15 mL oral 15 ml PO BID 09/26/22 12/13/22 solution levothyroxine 112 mcg tablet 112 mcg PO DAILY 09/26/22 12/13/22 perphenazine 2 mg tablet 2 mg PO BID 09/26/22 12/13/22 perphenazine 4 mg tablet 4 mg PO BID 09/26/22 12/13/22 propranolol 10 mg tablet 10 mg PO BID 09/26/22 12/13/22 simvastatin 40 mg tablet 40 mg PO BEDTIME 09/26/22 12/13/22 nicotine 7 mg/24 hr daily 1 patch transdermal Q24H 12/05/22 12/13/22 transdermal patch polyvinyl alcohol 1.4 % eye drops 1 drp ophthalmic (eye) TID-QID PRN 12/05/22 12/13/22 (Artificial Tears (polyvinyl Dry Eyes alcohol)) sennosides 8.6 mg tablet (senna) 17.2 mg PO DAILY PRN Constipation 12/05/22 12/13/22 Previous Rx's Medication Instructions Recorded bethanechol chloride 50 mg tablet 50 mg PO BID 90 days #180 tabs 01/16/23 terazosin 5 mg capsule 5 mg PO BEDTIME 90 days #90 caps 01/16/23 albuterol sulfate 90 mcg/actuation 2 puff inhalation Q4-6H PRN 04/11/23 aerosol inhaler shortness of breath or wheezing 30 days #1 ea Allergies Allergy/AdvReac Type Severity Reaction Status Date / Time cefpodoxime Allergy Intermediate Rash Verified 04/11/23 11:11 Review of Systems 2 Review of Systems: Positive coughing upper respiratory symptoms positive generalized malaise Yes all other systems are reviewed and are negative [facility] Past Medical History Medical History Age-related nuclear cataract, bilateral Alcohol dependence, uncomplicated Benign prostatic hyperplasia without lower urinary tract symptoms Constipation, unspecified COVID-19 vaccine series completed Dysphagia, oropharyngeal phase History of COVID-19 History of falling Hyperlipidemia, unspecified Hypothyroidism, unspecified Impulse disorder, unspecified Lefort i fracture, initial encounter for closed fracture Muscle weakness (generalized) Other abnormalities of gait and mobility Other specified intracranial injury without loss of consciousness, subsequent encounter Pain in left hip Paralytic gait Paranoid schizophrenia Personal history of COVID-19 Personal history of traumatic brain injury Primary generalized (osteo)arthritis Repeated falls Resides in long term facility Trichotillomania Unspecified abnormalities of gait and mobility Unspecified lack of coordination Unsteadiness on feet Weakness Surgical History History of facial surgery Family History Family History Unknown No problems noted. Social History Social History Household Members: Unknown / Unable to assess Housing Other:: [facility] Are you a primary manager medicare marketing to a significant other at home: No Do you presently have visiting nurse or other home services: Yes (resides @ [facility]) Unable to assess alcohol history related to: Unable to respond and Unknown Comment: 1:1 Patient Tobacco Use Status: Tobacco use Unknown Tobacco use type: Cigarette Cigarettes Per Day: 4 Years Smoked: 57 Advance Directives: Yes Advance Directives on File: Yes Advance Directives Date on File: 12/05/22 Current occupational status: disabled Physical Exam 2 Vital Signs: Vital Signs: Last Vital Signs Temp 97.5 F 07/14/23 12:19 Pulse 92 07/14/23 13:29 Resp 18 07/14/23 13:29 BP 111/70 12/10/23 13:29 Pulse Ox 95 07/14/23 13:29 O2 Del Method Nasal Cannula 07/14/23 13:29 O2 Flow Rate 2 07/14/23 13:29 BMI result Body Mass Index 19.3 Appearance: Alert. Contracted oriented to self. No acute distress. Eyes: Pupils equal, round and reactive to light. ENT: Pharynx normal. Neck: Normal inspection. Neck supple. No lymph nodes noted. No crepitus CVS: Normal heart rate and rhythm. Pulses normal. Normal S1 and S2 Respiratory: Diminished breath sounds bilaterally Abdomen: Soft and nontender. No rigidity. No distention. good BS x4 Skin: Skin warm and dry. Normal skin color. Normal skin turgor. Extremities: No lower extremity edema. Contracted no obvious rash no Neuro: Contracted oriented self No motor deficit. No sensory deficit. Moving all extermities. Positive slurred speech Medications Administered Discontinued Medications Generic Name Dose Route Start Last Admin Trade Name Freq PRN Reason Stop Dose Admin Levofloxacin 500 mg in 100 mls @ 100 mls/hr 07/14/23 12:42 07/14/23 13:11 Levaquin IV 07/14/23 13:41 100 mls/hr ONCE ONE Administration Sodium Chloride 1,578 mls @ 1,578 mls/hr 07/14/23 12:46 07/14/23 13:11 Ns 30 ml/kg infuse over 1 hr (1578 ml) 07/14/23 13:45 1,578 mls/hr IV Administration .Q1H STA Medical Decision Making Medical Decision Making MDM Narrative: History of schizophrenia history of alcohol dependence history of abdominal aortic aneurysm status post repair history COPD presented today with having increasing shortness of breath coughing upper respiratory symptoms. There is no fever that was noted. Patient was sent in for further evaluation had an episode of hypoxia noted at 88% on room air. 1247 Patient's blood pressure is noted to be 93/70 initially. 30 cc/kilos IV fluids started. Antibiotics started culture will be obtained flu RSV COVID sent. Patient's flu came back positive. IV fluid was given. Patient to be admitted given the hypoxia and dehydration. My interpretation patient's chest x-ray is grossly negative for any acute evidence of infiltrate Differential Diagnosis Differential Diagnoses: The differential diagnosis associated with the presentation includes Admission/Observation Consideration of admission/observation: Escalation of care including admission/observation considered Consult Healthcare Provider Management of the patient was discussed with: Hospitalist Lab Data MDM Lab Attestation statement: I reviewed the patient's lab results. 07/14/23 12:55 07/14/23 12:55 Labs: Lab Results 07/14/23 Range/Units 12:55 WBC 8.4 (4.8-10.8) X10*3/uL RBC 4.64 D (4.60-5.80) X10*6/uL Hgb 12.3 L D (14.0-18.0) g/dl Hct 39.0 L D (42.0-52.0) % MCV 84.1 (80.0-98.0) fL MCH 26.5 L (27.0-33.0) pg MCHC 31.5 (31.0-36.0) g/dl RDW 14.9 (11.0-16.0) % Plt Count 227 (160-400) X10*3/uL MPV 9.0 L (9.4-12.4) fL Immature Gran % (Auto) 0.5 H (0.0-0.4) % Neut % (Auto) 78.9 H (45-73) % Lymph % (Auto) 7.4 L (20-40) % Travis % (Auto) 12.9 H (2-11) % Eos % (Auto) 0.1 (0-4) % Baso % (Auto) 0.2 (0-2) % Lymph # (Auto) 0.6 L (1.2-4.9) X10*3/uL Travis # (Auto) 1.1 (0.1-1.2) X10*3/uL Eos # (Auto) 0.0 (0.0-0.4) X10*3/uL Baso # (Auto) 0.0 (0.0-0.2) X10*3/uL Abs Immat Gran (auto) 0.04 H (0.00-0.03) X10*3/uL Absolute Neuts (auto) 6.6 (2.0-8.3) x10*3/uL Absolute Nucleated RBC 0.000 (0.0-0.012) X10*3/uL Nucleated RBC % (auto) 0.0 (0.0-0.2) /100WBC Sodium 143 (135-145) mmol/L Potassium 4.4 (3.3-5.1) mmol/L Chloride 104 (96-108) mmol/L Carbon Dioxide 28 (22-29) mmol/L Anion Gap 15 (12-20) BUN 44 H (9-16) mg/dL Creatinine 0.97 (0.5-1.4) mg/dL Estim Creat Clear Calc 50.4 Estimated GFR > 60 Random Glucose 100 (60-115) mg/dL Lactic Acid 0.9 (0.5-2.0) mmol/L Calcium 9.3 D (8.4-10.2) mg/dL Troponin I High Sens < 2.7 (<3.5-35.0) ng/L B-Natriuretic Peptide 45 (<100) pg/mL Influenza Type A (PCR) POSITIVE A (Negative) Influenza Type B (PCR) NEGATIVE (Negative) RSV RNA Qual (PCR) NEGATIVE (Negative) SARS-CoV-2 RNA (RT-PCR) NEGATIVE (Negative) Independent Interpretation I performed an independent interpretation of an: EKG (My interpretation patient's EKG showed a sinus rhythm heart rate is 90 AK QRS QTC within normal limits no acute ST segment elevation) and Plain X-Ray (My interpretation patient's chest x-ray is grossly negative) Radiology Impression Discussion of test interpretation with radiology: I have reviewed the radiologist's reading. Independent Historian Clinical information obtained from an independent historian. History obtained from or confirmed by: EMS External Record Review External record reviewed: Inpatient record Social Determinants Patient?s care significantly limited by Social Determinants of Health including: Inadequate housing Discharge Plan Discharge Clinical Impression: Influenza Patient Disposition: Admitted As Inpatient Prescriptions: No Action lactulose 10 gram/15 mL solution 15 ml PO BID perphenazine 4 mg tablet 4 mg PO BID perphenazine 2 mg tablet 2 mg PO BID propranolol 10 mg tablet 10 mg PO BID simvastatin 40 mg tablet 40 mg PO BEDTIME levothyroxine 112 mcg tablet 112 mcg PO DAILY diazepam 2 mg tablet 3 mg PO BID PRN (Reason: Anxiety) bisacodyl [Dulcolax (bisacodyl)] 10 mg suppository 10 mg AK DAILY PRN (Reason: Constipation) acetaminophen 325 mg capsule 650 mg PO Q6H PRN (Reason: Pain) Fleet Enema 19-7 gram/118 mL enema 118 ml AK DAILY PRN (Reason: Constipation) polyvinyl alcohol [Artificial Tears (polyvin alc)] 1.4 % drops 1 drp ophthalmic (eye) TID-QID PRN (Reason: Dry Eyes) nicotine 7 mg/24 hr patch 24 hour 1 patch transdermal Q24H sennosides [senna] 8.6 mg tablet 17.2 mg PO DAILY PRN (Reason: Constipation) albuterol sulfate 90 mcg/actuation HFA aerosol inhaler 2 puff inhalation Q4-6H PRN (Reason: shortness of breath or wheezing) 30 Days Qty: 1 6RF lidocaine HCl 2 % jelly in applicator 10 ml intra-urethral ONCE Qty: 10 0RF bethanechol chloride 50 mg tablet 50 mg PO BID 90 Days Qty: 180 1RF terazosin 5 mg capsule 5 mg PO BEDTIME 90 Days Qty: 90 1RF
[2023-07-14 13:08] LABS: MANUAL DIFF FLAG NO
[2023-07-14 13:10] LABS: Basophils Percent Auto 0.2 % (0-2); Eosinophils Percent Auto 0.1 % (0-4); Hemoglobin 12.3 g/dl (14.0-18.0); Imm Gran Abs Auto 0.04 X10*3/uL (0.00-0.03); Imm Gran Pct Auto 0.5 % (0.0-0.4); Lymphocytes Absolute Auto 0.6 X10*3/uL (1.2-4.9); Lymphocytes Percent Auto 7.4 % (20-40); Mean Corpuscular HGB Conc 31.5 g/dl (31.0-36.0); Mean Corpuscular Hemoglobin 26.5 pg (27.0-33.0); Mean Corpuscular Volume 84.1 fL (80.0-98.0); Monocytes Absolute Auto 1.1 X10*3/uL (0.1-1.2); Monocytes Percent Auto 12.9 % (2-11); Neutrophils Absolute Auto 6.6 x10*3/uL (2.0-8.3); Neutrophils Percent Auto 78.9 % (45-73); Platelet Count 227 X10*3/uL (160-400); Red Blood Count 4.64 X10*6/uL (4.60-5.80); Red Cell Distribution Width 14.9 % (11.0-16.0); White Blood Count 8.4 X10*3/uL (4.8-10.8)
[2023-07-14] MEDS: levoFLOXacin/D5W 500 MG/100 ML PIGGYBACK 100 MG IV (13:11)
--- NOTE | 2023-07-14 13:17 | PC.NURSE ---
20gIV placed in left AC as well as 20gIV placed in the left forearm/ labs drawn and sent to lab. medication/IV fluids administered per provider order. tech bedside performing ekg. pt awaiting chest xray at this time.
[2023-07-14 13:20] LABS: Lactic Acid 0.9 mmol/L (0.5-2.0)
[2023-07-14 13:23] LABS: Anion Gap 15 (12-20); Blood Urea Nitrogen 44 mg/dL (9-16); Calcium 9.3 mg/dL (8.4-10.2); Carbon Dioxide 28 mmol/L (22-29); Chloride 104 mmol/L (96-108); Creatinine Clr Calc Pharmacy 50.4; Estimated Glomerular Filt Rate > 60; Glucose Random 100 mg/dL (60-115); Potassium 4.4 mmol/L (3.3-5.1); Sodium 143 mmol/L (135-145)
[2023-07-14 13:30] LABS: B Type Natriuretic Peptide 45 pg/mL (<100)
[2023-07-14 13:32] LABS: Troponin-I High Sensitivity < 2.7 ng/L (<3.5-35.0)
[2023-07-14 13:47] LABS: Influenza A PCR POSITIVE (Negative); Influenza B PCR NEGATIVE (Negative); Resp Syncy Virus RNA Qual PCR NEGATIVE (Negative); SARS COV2 PCR INHOUSE NEGATIVE (Negative)
--- NOTE | 2023-07-14 15:23 | PHA.MEDREC ---
Pharmacy Consult ? Medication Reconciliation Pharmacy has completed the medication reconciliation.
--- NOTE | 2023-07-14 15:25 | P.HPHOSP_ITS ---
History of Present Illness Date of Service: 07/14/23 Attending physician on admission: [facility] Chief Complaint: Cough, malaise Pt is a 73-year-old male with a PMH significant for TBI, AAA s/p elective repair, COPD, hypothyroidism, HTN, HLD, BPH, and paranoid schizophrenia who presents to the ED from [facility] with cough and upper respiratory symptoms. Was started on doxycycline this morning but then noted to have an episode of low blood pressure and decreased O2 saturation of 88%. Was thus sent into the ED for further evaluation. Pt is AOx2, has dysarthria s/p TBI, and is dificult to understand. HPI thus limited to chart and provider review. In the ED pt was afebrile and normotensive, but with elevated HR up to 92 and satting at 88% on RA. Labs were significant grossly unremarkable. Stable H&H of 12.3/39.0. No leukocytosis. Renal and hepatic function baseline. Troponin negative. BNP 45. Patient tested positive for influenza type A. UA positive for UTI. CXR showed question of bronchial wall thickening or airway disease the lung bases. Also found question of left base pulmonary nodule with recommended follow-up with elective CT of chest. EKG demonstrated normal sinus rhythm with with no significant ST elevations or depressions. Pt was treated with levofloxacin and IVF. Pt will be admitted to the hospital for treatment and further evaluation of acute hypoxic respiratory failure in the setting of influenza infection. Review of Systems 2 Review of Systems: Unable to obtain [facility] Medical History COVID-19 vaccine series completed History of COVID-19 Resides in care home facility History of falling Personal history of traumatic brain injury Other specified intracranial injury without loss of consciousness, subsequent encounter Paralytic gait Benign prostatic hyperplasia without lower urinary tract symptoms Pain in left hip Primary generalized (osteo)arthritis Constipation, unspecified Impulse disorder, unspecified Trichotillomania Alcohol dependence, uncomplicated Hyperlipidemia, unspecified Hypothyroidism, unspecified Weakness Unspecified lack of coordination Muscle weakness (generalized) Age-related nuclear cataract, bilateral Unspecified abnormalities of gait and mobility Personal history of COVID-19 Repeated falls Lefort i fracture, initial encounter for closed fracture Unsteadiness on feet Other abnormalities of gait and mobility Dysphagia, oropharyngeal phase Paranoid schizophrenia Family History Unknown No problems noted. Surgical History History of facial surgery Social History Household Members: Unknown / Unable to assess Housing Other:: [facility] Are you a primary gericare aide teacher to a significant other at home: No Do you presently have visiting nurse or other home services: Yes (resides @ [facility]) Unable to assess alcohol history related to: Unable to respond and Unknown Comment: 1:1 Patient Tobacco Use Status: Tobacco use Unknown Tobacco use type: Cigarette Cigarettes Per Day: 4 Years Smoked: 57 Smoked in Last 30 Days: No Use of substances other than those prescribed or required for medical reasons: No Advance Directives: Yes Advance Directives on File: Yes Advance Directives Date on File: 12/05/22 Nutrition Risks: No Nutritional Risk Current occupational status: disabled Meds Allergies Allergy/AdvReac Type Severity Reaction Status Date / Time cefpodoxime Allergy Intermediate Rash Verified 04/11/23 11:11 Home Medications Medication Instructions Recorded Confirmed Last Taken Type acetaminophen 325 mg capsule 650 mg PO Q6H PRN Pain 09/20/22 07/14/23 Unknown History bisacodyl 10 mg rectal suppository 10 mg OR DAILY PRN Constipation 09/20/22 07/14/23 Unknown History (Dulcolax (bisacodyl)) diazepam 2 mg tablet 3 mg PO BID PRN Anxiety 09/20/22 07/14/23 Unknown History sodium phosphates 19 gram-7 118 ml OR DAILY PRN Constipation 09/20/22 07/14/23 Unknown History gram/118 mL enema (Fleet Enema) lactulose 10 gram/15 mL oral 15 ml PO BID 09/26/22 07/14/23 Unknown History solution levothyroxine 112 mcg tablet 112 mcg PO DAILY 09/26/22 07/14/23 Unknown History perphenazine 4 mg tablet 8 mg PO BID 09/26/22 07/14/23 Unknown History propranolol 10 mg tablet 10 mg PO BID 09/26/22 07/14/23 Unknown History simvastatin 40 mg tablet 40 mg PO BEDTIME 09/26/22 07/14/23 Unknown History nicotine 7 mg/24 hr daily 1 patch transdermal Q24H 12/05/22 07/14/23 Unknown History transdermal patch polyvinyl alcohol 1.4 % eye drops 1 drp ophthalmic (eye) TID-QID PRN 12/05/22 07/14/23 Unknown History (Artificial Tears (polyvinyl Dry Eyes alcohol)) sennosides 8.6 mg tablet (senna) 17.2 mg PO DAILY PRN Constipation 12/05/22 07/14/23 Unknown History doxycycline hyclate 100 mg tablet 100 mg PO BID 07/14/23 07/14/23 Unknown History Physical Exam 2 Vital Signs and Narrative: Vital Signs: Last Vital Signs Temp 97.5 F 07/14/23 12:19 Pulse 92 07/14/23 15:17 Resp 16 07/14/23 15:17 BP 113/69 07/14/23 15:17 Pulse Ox 95 07/14/23 15:17 O2 Del Method Nasal Cannula 07/14/23 15:17 O2 Flow Rate 2 07/14/23 15:17 BMI result Body Mass Index 19.3 Constitutional: Alert, cachectic, frail looking in no acute distress. Mental Status: Oriented to person, place and time. Eyes: Pupils are equal, round, and reactive to light. Ear, Nose, and Throat: Oropharynx clear, mucous membranes moist. Ears and nose without deformities. Trachea midline. Patient with significant dysarthria at baseline Respiratory: Diffuse coarse expiratory breath sounds bilaterally. Cardiovascular: S1, S2 regular. No murmurs, rubs, or gallops. Gastrointestinal: Abdomen soft, non-tender, non-distended. Normal bowel sounds. Neurologic: Cranial nerves II-XII are grossly intact bilaterally. No focal neurological deficits. Moves all extremities spontaneously. Skin: Warm, dry. Musculoskeletal: No cyanosis or clubbing. Extremities: No edema. Results Labs 07/15/23 05:52 07/15/23 05:52 Labs: Laboratory Results - last 24 hr 07/14/23 12:55 MCV 84.1 MCH 26.5 L MCHC 31.5 RDW 14.9 Plt Count 227 MPV 9.0 L Immature Gran % (Auto) 0.5 H Neut % (Auto) 78.9 H Lymph % (Auto) 7.4 L Ward % (Auto) 12.9 H Eos % (Auto) 0.1 Baso % (Auto) 0.2 Lymph # (Auto) 0.6 L Ward # (Auto) 1.1 Eos # (Auto) 0.0 Baso # (Auto) 0.0 Abs Immat Gran (auto) 0.04 H Absolute Neuts (auto) 6.6 Absolute Nucleated RBC 0.000 Nucleated RBC % (auto) 0.0 Anion Gap 15 Estim Creat Clear Calc 50.4 Estimated GFR > 60 Random Glucose 100 Lactic Acid 0.9 Calcium 9.3 D B-Natriuretic Peptide 45 Influenza Type A (PCR) POSITIVE A Influenza Type B (PCR) NEGATIVE RSV RNA Qual (PCR) NEGATIVE SARS-CoV-2 RNA (RT-PCR) NEGATIVE Imaging Radiologist's Impressions: Impressions Chest X-Ray 07/14/23 14:20 IMPRESSION: Well-inflated lungs. Question bronchial wall thickening or airways disease at the lung bases. Question left base pulmonary nodule. It is uncertain whether this corresponds to cavitary pulmonary nodule seen on previous chest CT or represents a nipple shadow. Follow-up elective chest CT imaging recommended. Assessment and Plan (1) Influenza: Status: Acute (2) Hypoxia: Status: Acute Plan Pt is a 73-year-old male with a PMH significant for TBI, AAA s/p elective repair, COPD, hypothyroidism, HTN, HLD, BPH, and paranoid schizophrenia who presents to the ED from [facility] with cough and upper respiratory symptoms. Pt will be admitted to the hospital for treatment and further evaluation of acute hypoxic respiratory failure in the setting of influenza infection. Acute hypoxic respiratory failure in the setting of influenza infection Tested positive for influenza type A, setting as low as 88% on RA Will treat with Tamiflu, started 07/14/2023 Will also give DuoNebs, Solu-Medrol Will place on maintenance fluids Titrate supplemental O2>92, wean as tolerated UTI UA positive for UTI Pt allergic to cefpodoxime, will treat with levofloxacin, started 07/14/2023 Follow cultures Diet/Protein calorie malnutrition Patient with TBI, dysphagia, dysarthria Pureed diet with honey thick liquids Magic cup supplement Requires assistance and monitoring with eating COPD Continue home inhalers Will be given DuoNebs, Solu-Medrol Hypothyroidism Continue levothyroxine Hx of TBI, paranoid schizophrenia Continue home meds Full Code Attending:?Dr. Jordan DVT Prophylaxis: Lovenox Pt will require a hospitalization of at least two nights for treatment of?acute hypoxic respiratory failure. Pt will be treated with tamiflu, breathing treatments, IV streroids, and IVF. Quality Stroke Does the patient have a stroke diagnosis?: No VTE Prior VTE?: No VTE Risk Level:: Medical - moderate - high VTE Device Contraindication: Treatment Not Indicated VTE Drug Contraindication: N/A - Med Ordered
[2023-07-14 15:31] LABS: Appearance Urine Turbid; Color Urine Yellow; Glucose Urine UA Negative (Negative); Leukocyte Esterase Urine Large (3+) (Negative); Nitrite Urine Negative (Negative); UMIC TRIGGER UACC YES; Urine Blood Large (3+) (Negative); Urine Ketones Negative (Negative); Urine Protein 100 (2+) mg/dL (Neg-Trace)
--- NOTE | 2023-07-14 15:45 | PC.NURSE ---
pt continuously attempting to get out of bed. this RN was able to redirect pt/get him back into bed. pt incontinent of urine. this RN and tech nickie changed pt over/applied fresh linen. safety camera now in place. hospitalist bedside speaking w/ pt at this time.
[2023-07-14 15:54] LABS: Bacteria Urine 4+ (None Seen); Other Crystals Urine Present; RBC Urine >20 /HPF (0-2); Squamous Epithelial Cell Urine 0-2 /HPF (0-2); UACC Culture Trigger YES; WBC Urine >50 /HPF (0-5)
[2023-07-14] MEDS: Enoxaparin Sodium 40 MG/0.4 ML SYRINGE SUBCUT (16:46)
[2023-07-14] MEDS: 0.9 % Sodium Chloride Flush 3 ML SYRINGE IVFLUSH (16:46)
[2023-07-14] MEDS: methylPREDNISolone Sod Succ 40 MG/ML VIAL IVPUSH (16:46)
[2023-07-14] MEDS: Nicotine 7 MG PATCH.TD24 TRANSDERMA (17:33)
[2023-07-14] MEDS: Lactated Ringers 1,000 ML 100 ML IVCONT (17:33)
--- NOTE | 2023-07-14 17:44 | PC.NURSE ---
vss and up to date. pt passed nursing swallow eval w/o complications. no delayed efforts noted. pt has no complaints/denies any pain. productive/wet cough still noted. crackles noted upon auscultation. medication administered per provider order. pharmacy called/notified that tamiflu is not in pyxis at this time - will administer when able. respirations remain even and unlabored. call diego placed within reach.
[2023-07-14] MEDS: Oseltamivir Phosphate 30 MG CAPSULE PO (17:56)
--- NOTE | 2023-07-14 17:59 | PC.NURSE ---
medication delivered from pharmacy/administered w/ applesauce. pt tolerated swallowing well - no difficulties. wet/productive cough noted post medication administration/after swallowing.
[2023-07-14] MEDS: Albuterol/Iprat 2.5/0.5MG 3 ML AMPUL.NEB INHALE (20:07)
[2023-07-14] MEDS: Lactulose 20 GM/30 ML SOLUTION 10 GM PO (20:37)
[2023-07-14] MEDS: Atorvastatin Calcium 20 MG TABLET PO (20:37)
[2023-07-14] MEDS: Propranolol HCL 10 MG TABLET PO (20:37)
[2023-07-14] MEDS: Doxazosin Mesylate 2 MG TABLET 4 MG PO (20:37)
[2023-07-14] MEDS: Perphenazine 8 MG TABLET PO (20:41)
--- NOTE | 2023-07-14 20:49 | PC.NURSE ---
medications administered per provider order. medication missing from pyxis - will call pharmacy to notify.
--- NOTE | 2023-07-14 21:25 | PC.NURSE ---
pharmacy called/notified of medication not in pyxis. will administer when able.
[2023-07-14] MEDS: Bethanechol Chloride 25 MG TABLET 50 MG PO (22:45)
--- NOTE | 2023-07-14 22:50 | PC.NURSE ---
PT MEDICATED PER MAR CRUSHED IN APPLE SAUCE. PT STATES HE WANTS TO SLEEP. REPOSITIONED LIGHTS DIMMED. CALL ROSE WITHIN REACH.
[2023-07-15 00:39] VITALS: BP 108/69
[2023-07-15] MEDS: Lactated Ringers 1,000 ML 100 ML IVCONT (04:01)
--- NOTE | 2023-07-15 04:05 | PC.NURSE ---
bedding/gown changed warm blanket given. new LR bag hung. pt monitor camera at bedside. call diego within reach.
[2023-07-15] MEDS: Oseltamivir Phosphate 30 MG CAPSULE PO (05:42)
[2023-07-15] MEDS: Levothyroxine Sodium 112 MCG TABLET PO (05:42)
[2023-07-15] MEDS: methylPREDNISolone Sod Succ 40 MG/ML VIAL IVPUSH (05:42)
[2023-07-15 06:39] LABS: Hematocrit 33.5 % (42.0-52.0); Hemoglobin 10.3 g/dl (14.0-18.0); Mean Corpuscular HGB Conc 30.7 g/dl (31.0-36.0); Mean Corpuscular Hemoglobin 26.7 pg (27.0-33.0); Mean Corpuscular Volume 86.8 fL (80.0-98.0); Mean Platelet Volume 9.4 fL (9.4-12.4); Platelet Count 183 X10*3/uL (160-400); Red Blood Count 3.86 X10*6/uL (4.60-5.80); Red Cell Distribution Width 15.2 % (11.0-16.0); White Blood Count 5.4 X10*3/uL (4.8-10.8)
[2023-07-15 06:58] LABS: Anion Gap 13 (12-20); Blood Urea Nitrogen 33 mg/dL (9-16); Calcium 8.6 mg/dL (8.4-10.2); Carbon Dioxide 24 mmol/L (22-29); Chloride 109 mmol/L (96-108); Creatinine Clr Calc Pharmacy 60.4; Estimated Glomerular Filt Rate > 60; Glucose Random 109 mg/dL (60-115); Potassium 3.9 mmol/L (3.3-5.1); Sodium 142 mmol/L (135-145)
--- NOTE | 2023-07-15 08:21 | PC.NURSE ---
assumed care of this pt at 0700. pt in bed sleeping at the time of assuming care. COVID precautions in place.
--- NOTE | 2023-07-15 08:40 | PC.NURSE ---
SENT FROM SNF FOR EVAL OF UPPER RESP SYMPTOMS, SATS 88% R/A. SEPSIS CRITERIA TRIGGERED SEPSIS WORK UP. INCIDENTAL FINDING + OCCULT BLOOD. PT GETTING TX FOR UTI. FLU +, LR 100 ML/HR 20G BILAT AC. WRITTEN REPORT SENT TO [facility], CONFIRMED VIA [facility].
--- NOTE | 2023-07-15 09:03 | MHC.CM.PN ---
PT IS A LTC RESIDENT OF [facility] PER HOSPITALIST, PT CAN RETURN TO LTC TODAY REFERRAL MADE TO [facility]ONG WITH NOTICE OF INTENT TO DC AWAITING RESPONSE
--- NOTE | 2023-07-15 09:08 | P.DS_ITS ---
DS: Providers Provider Date of Service: 07/15/23 Date of admission: 07/14/23 15:59 Primary care physician: Jeffrey Delatorre DO DS: Diagnosis Discharge Diagnosis (1) Influenza: Status: Acute (2) Hypoxia: Status: Acute DS: Summary Hospital Course Hospital Course: Chief Complaint: Cough, malaise Pt is a 73-year-old male with a PMH significant for TBI, AAA s/p elective repair, COPD, hypothyroidism, HTN, HLD, BPH, and paranoid schizophrenia who presents to the ED from [facility] with cough and upper respiratory symptoms. Was started on doxycycline this morning but then noted to have an episode of low blood pressure and decreased O2 saturation of 88%. Was thus sent into the ED for further evaluation. Pt is AOx2, has dysarthria s/p TBI, and is dificult to understand. HPI thus limited to chart and provider review. In the ED pt was afebrile and normotensive, but with elevated HR up to 92 and satting at 88% on RA. Labs were significant grossly unremarkable. Stable H&H of 12.3/39.0. No leukocytosis. Renal and hepatic function baseline. Troponin negative. BNP 45. Patient tested positive for influenza type A. UA positive for UTI. CXR showed question of bronchial wall thickening or airway disease the lung bases. Also found question of left base pulmonary nodule with recommended follow-up with elective CT of chest. EKG demonstrated normal sinus rhythm with with no significant ST elevations or depressions. Pt was treated with levofloxacin and IVF. Pt will be admitted to the hospital for treatment and further evaluation of acute hypoxic respiratory failure in the setting of influenza infection. Hospital course: Patient was admitted for acute hypoxic respiratory failure and hypotension. He was also found to have a urinary tract infection (UTI). Influenza was treated symptomatically with bronchodilators, Tamiflu, and corticosteroids. He had one episode of hypoxia with an oxygen saturation of 88 upon presentation. His oxygen saturation has since been within normal limits, currently ranging from 94% to 96% on room air. He is breathing comfortably and has been requesting to return to the long-term facility (SNF). He has no fever, and his white blood cell count is normal. He will be discharged with 3 more days of Prednisone, and to complete 5 days of Tamiflu For the UTI, he was started on Levaquin 250mg daily for a total of 5 days. He was also encouraged to drink plenty of fluids. His hypotension, reported at the SNF, with the lowest blood pressure being 93/70 here, treated with intravenous fluids (IVF). His blood pressure has since been within normal limits. Time Attestation Discharge coordination time: Greater than 30 minutes Quality: Safe Use of Opioids Does Pt have an Active Cancer Diagnosis on the Problem List?: No Quality: Stroke Does the patient have a stroke diagnosis?: No Physical Exam Vital Signs: Vital Signs: Last Vital Signs Temp 97.5 F 07/14/23 12:19 Pulse 83 07/14/23 20:41 Resp 16 07/14/23 20:41 BP 108/69 07/15/23 00:39 Pulse Ox 94 07/14/23 20:41 O2 Del Method Room Air 07/14/23 20:41 O2 Flow Rate 2 07/14/23 15:17 BMI result Body Mass Index 19.3 DS: Data Data Completed and Pending Completed studies during hospitalization [Text1]: Procedures Restriction of Abdominal Aorta with Intraluminal Device, Percutaneous Approach (12/24/22) Labs on day of discharge: Laboratory Results - last 24 hr 07/14/23 07/14/23 07/15/23 12:55 15:19 05:52 WBC 8.4 5.4 RBC 4.64 D 3.86 L Hgb 12.3 L D 10.3 L Hct 39.0 L D 33.5 L MCV 84.1 86.8 MCH 26.5 L 26.7 L MCHC 31.5 30.7 L RDW 14.9 15.2 Plt Count 227 183 MPV 9.0 L 9.4 Immature Gran % (Auto) 0.5 H Neut % (Auto) 78.9 H Lymph % (Auto) 7.4 L Mcpherson % (Auto) 12.9 H Eos % (Auto) 0.1 Baso % (Auto) 0.2 Lymph # (Auto) 0.6 L Mcpherson # (Auto) 1.1 Eos # (Auto) 0.0 Baso # (Auto) 0.0 Abs Immat Gran (auto) 0.04 H Absolute Neuts (auto) 6.6 Absolute Nucleated RBC 0.000 0.000 Nucleated RBC % (auto) 0.0 0.0 Sodium 143 142 Potassium 4.4 3.9 Chloride 104 109 H Carbon Dioxide 28 24 Anion Gap 15 13 BUN 44 H 33 H Creatinine 0.97 0.81 Estim Creat Clear Calc 50.4 60.4 Estimated GFR > 60 > 60 Random Glucose 100 109 Lactic Acid 0.9 Calcium 9.3 D 8.6 D Troponin I High Sens < 2.7 B-Natriuretic Peptide 45 Urine Color Yellow Urine Appearance Turbid Urine pH 8.0 Ur Specific Winnett 1.020 Urine Protein 100 (2+) H Urine Glucose (UA) Negative Urine Ketones Negative Urine Blood Large (3+) H Urine Nitrite Negative Ur Leukocyte Esterase Large (3+) H Urine RBC >20 H Urine WBC >50 H Ur Squamous Epith Cells 0-2 Other Crystals Present Urine Bacteria 4+ Hyaline Casts 3-5 Influenza Type A (PCR) POSITIVE A Influenza Type B (PCR) NEGATIVE RSV RNA Qual (PCR) NEGATIVE SARS-CoV-2 RNA (RT-PCR) NEGATIVE Discharge Plan Discharge Anticipated Discharge Date/Time: 07/15/23 09:05 Patient Disposition: Xfer SNF Discharge Diagnosis: Acute Hypoxic respiratory failure, Influenza Referrals: Jeffrey Delatorre DO [Primary Care Provider] - 1 Week Discharge Medications: New prednisone 20 mg tablet 20 mg PO DAILY Qty: 3 0RF levofloxacin 250 mg Tablet 250 mg PO Q24H Qty: 4 0RF oseltamivir [Tamiflu] 75 mg Capsule 75 mg PO BID Qty: 8 0RF Continued doxycycline hyclate 100 mg tablet 100 mg PO BID Rx Instructions: START DATE 07/14 END DATE 07/24 lactulose 10 gram/15 mL solution 15 ml PO BID perphenazine 4 mg tablet 8 mg PO BID propranolol 10 mg tablet 10 mg PO BID simvastatin 40 mg tablet 40 mg PO BEDTIME levothyroxine 112 mcg tablet 112 mcg PO DAILY diazepam 2 mg tablet 3 mg PO BID PRN (Reason: Anxiety) bisacodyl [Dulcolax (bisacodyl)] 10 mg suppository 10 mg NH DAILY PRN (Reason: Constipation) acetaminophen 325 mg capsule 650 mg PO Q6H PRN (Reason: Pain) Fleet Enema 19-7 gram/118 mL enema 118 ml NH DAILY PRN (Reason: Constipation) polyvinyl alcohol [Artificial Tears (polyvin alc)] 1.4 % drops 1 drp ophthalmic (eye) TID-QID PRN (Reason: Dry Eyes) nicotine 7 mg/24 hr patch 24 hour 1 patch transdermal Q24H sennosides [senna] 8.6 mg tablet 17.2 mg PO DAILY PRN (Reason: Constipation) albuterol sulfate 90 mcg/actuation HFA aerosol inhaler 2 puff inhalation Q4-6H PRN (Reason: shortness of breath or wheezing) 30 Days Qty: 1 6RF bethanechol chloride 50 mg tablet 50 mg PO BID 90 Days Qty: 180 1RF terazosin 5 mg capsule 5 mg PO BEDTIME 90 Days Qty: 90 1RF Discharge Orders: Discharge Order (Routine); Ordered 07/15/23 Ordered By: Juventino Jordan Diet: Advance to usual diet Activity on Discharge: As tolerated Stand Alone Forms: Patient Portal Discharge page Care Plan Goals: Full recovery from Influenza and UTI Health Concerns: Influenza Hypoxia now resolved Hypotension resolved Plan of Treatment: Take Tamiflu as recommended to treat Flu Take Levaquin 250 mg daily for UTI for 4 more does remy Prednisone 20 mg daily for 3 more days Assessment: See above Discharge Date/Time: 07/15/23 19:57
--- NOTE | 2023-07-15 09:16 | MHC.EDTECH ---
AM care done , bed change.
--- NOTE | 2023-07-15 09:24 | MHC.CM.PN ---
Addendum entered by Leonarda Lu 07/15/23 10:25: DP: PT MEDICALLY CLEARED TO RETURN TO [facility]. [facility] UPDATED. BLS TRANSPORT BOOKED FOR 12 NOON VIA [employer]. CENTER UPDATED VIA [employer]. Original Note: IMM ADDRESSED WITH [facility] RITCHIE DIAMOND VIA TELEPHONE. REQUEST WHITE COPY BE LEFT AT PT BEDSIDE. 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 PER [facility], PT WILL RETURN THERE ON DC. PT WILL NEED BLS TRANSPORT. DP: RETURN TO [facility] ON DC VIA BLS. CM WILL CONTINUE TO FOLLOW FOR ANY CHANGE IN DC PLAN/NEEDS
[2023-07-15] MEDS: Lactulose 20 GM/30 ML SOLUTION 10 GM PO (10:30)
[2023-07-15] MEDS: Perphenazine 8 MG TABLET PO (10:30)
[2023-07-15] MEDS: Propranolol HCL 10 MG TABLET PO (10:30)
[2023-07-15] MEDS: Oseltamivir Phosphate 75 MG CAPSULE PO (10:30)
[2023-07-15] MEDS: Albuterol/Iprat 2.5/0.5MG 3 ML AMPUL.NEB INHALE (10:58)
[2023-07-15 10:59] VITALS: PULSE 88; RESP 18; O2SAT 95
[2023-07-15 11:54] VITALS: BP 119/77; PULSE 74; RESP 18; O2SAT 96
== END 2023-07-15 19:57 | disposition intermediate care facility (04) | DRG 193 ==
LOC: HO.ED 14:38 → HO.EDOVER 16:24 → HO.S3 07-15 07:27 → HO.EDOVER 07-15 10:10
PROVIDERS: Admitting Provider Student in an Organized Health Care Education/Training Program; Emergency Provider Emergency Medicine Emergency Medical Services; PCP Hospitalist; Visit Provider Internal Medicine
DX: J10.1 Influenza due to other identified influenza virus with other respiratory manifestations (principal); J96.01 Acute respiratory failure with hypoxia; F20.0 Paranoid schizophrenia; E46 Unspecified protein-calorie malnutrition; Z68.1 Body mass index [BMI] 19.9 or less, adult; R64 Cachexia; J44.9 Chronic obstructive pulmonary disease, unspecified; E03.9 Hypothyroidism, unspecified; I95.9 Hypotension, unspecified; Z87.820 Personal history of traumatic brain injury; Z20.822 Contact with and (suspected) exposure to COVID-19; Z79.890 Hormone replacement therapy; Z79.899 Other long term (current) drug therapy
CPT/HCPCS: 0241U; 36415; 71045; 80048; 81001; 83605; 83880; 84484; 85025; 85027; 87040; 87086; 93005; 94640; 99285; J1650; J1956; J2920; J7120

== ENCOUNTER → 2023-07-14 12:37 | Outpatient (BNV) | payer MEDICARE, MEDICAID, SELFPAY | PROVIDERS: Admitting Provider Student in an Organized Health Care Education/Training Program; Emergency Provider Emergency Medicine Emergency Medical Services; PCP Hospitalist; Visit Provider Internal Medicine Cardiovascular Disease | DX: R94.31 Abnormal electrocardiogram [ECG] [EKG] (principal); R06.00 Dyspnea, unspecified | CPT/HCPCS: 93010 ==

== ENCOUNTER → 2023-07-14 15:59 | Outpatient (BNV) | payer MEDICARE, MEDICAID, SELFPAY | PROVIDERS: Admitting Provider Student in an Organized Health Care Education/Training Program; Emergency Provider Emergency Medicine Emergency Medical Services; PCP Hospitalist; Visit Provider Student in an Organized Health Care Education/Training Program | DX: J10.1 Influenza due to other identified influenza virus with other respiratory manifestations (principal); J96.01 Acute respiratory failure with hypoxia | CPT/HCPCS: 99223; 99239 ==

== ENCOUNTER 2023-08-28 11:10 | Inpatient (IN) | payer MEDICARE, MEDICAID, SELFPAY ==
[2023-08-28] VITALS (13 sets, daily range): BP systolic 79–132; BP diastolic 40–85; PULSE 76–94; RESP 16–18; TEMP 34.2–36.2; O2SAT 84–96; BMI 16.5
--- NOTE | ~2023-08-28 | US_ITS ---
EXAMINATION: US RETROPERITONEAL LIMITED (RENAL ONLY) CLINICAL INFORMATION: Hematuria. COMPARISON: 11/29/2022 TECHNIQUE: Real-time imaging of the kidneys. FINDINGS: RIGHT KIDNEY: 9.8 x 4.0 x 6.0 cm (SAG x AP x TRV). The kidney is normal in size, contour, and echogenicity. Renal cortical thickness is normal. No calculi. No hydronephrosis. Lower pole cyst with multiple septations measures 3.0 x 3.1 x 3.1 cm. LEFT KIDNEY: 9.5 x 3.6 x 4.4 cm (SAG x AP x TRV). The kidney is normal in size, contour, and echogenicity. Renal cortical thickness is normal. No calculi or focal parenchymal lesions. No hydronephrosis. US/US renal BI IMPRESSION: Septated cyst lower pole right kidney measuring 3.0 x 3.1 x 3.1 cm. This was previously described as a simple cyst by CT characterization on 04/01/2023 requiring no further imaging follow-up.
--- NOTE | ~2023-08-28 | CT_ITS ---
EXAMINATION: CT HEAD WITHOUT CONTRAST CLINICAL INFORMATION: Patient fell and struck head COMPARISON: None available. TECHNIQUE: Contiguous axial imaging was performed from the skull base to vertex without intravenous administration of contrast. This CT examination was performed using dose optimization techniques as appropriate, variously including the following: *Automated exposure control *Adjustment of mA and/or kV according to patient size (this includes techniques or standardized protocols for targeted exams where dose is matched to indication/reason for exam; i.e. extremities or head) *Use of iterative reconstruction technique DLP: 753 mGy-cm FINDINGS: There is prominence to the sulci and ventricles consistent with age-related changes and involutional change with extensive deep white matter gliosis and encephalomalacia in the right temporal fossa likely from an old insult. No evidence however for hemorrhage, mass or mass effect or extra-axial collection. Calvarium is intact. Postsurgical changes are seen in the right and left maxilla and left zygomatic arch. CT/CT head/brain wo IV con IMPRESSION: Extensive chronic change. 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 No acute fracture or acute intracranial hemorrhage.
--- NOTE | ~2023-08-28 | IR_ITS ---
EXAMINATION: XR GASTROSTOMY TUBE PLACEMENT CLINICAL INFORMATION: Feeding intolerance COMPARISON: 09/02/2023. TECHNIQUE/FINDINGS: Medications for conscious sedation: The patient received intravenous conscious sedation under my direct supervision. A registered nurse monitored the patient and the patient's vital signs throughout the procedure. The total sedation was 40 minutes. Fentanyl and Versed given for good effect. Informed consent was obtained prior to the procedure. The patient was placed on the fluoroscopy table and the upper abdomen was sterilely prepped and draped. The stomach was insufflated with a nasogastric tube. 1% lidocaine was administered for local anesthesia. 3 percutaneous anchors were used to affix the stomach to the anterior abdominal wall. The stomach was then accessed with a 19-gauge needle. A 0.035 guidewire was placed. The tract was dilated and a peel-away sheath was placed. A 14 Armenian gastrostomy tube was then placed. The retention balloon was inflated with 5 mL of sterile saline. Contrast injection demonstrates satisfactory position of the tube. FLUOROSCOPY TIME: 8.7 minutes DOSE AREA PRODUCT: 48 uGy-m2 (microgray-meter squared) IR/IR gastro tube insertion IMPRESSION: Placement of percutaneous gastrostomy tube.
--- NOTE | ~2023-08-28 | CT_ITS ---
EXAMINATION: CT CERVICAL SPINE WITHOUT CONTRAST CLINICAL INFORMATION: Fall. Neck pain. COMPARISON: CT chest 12/17/2022. TECHNIQUE: Blade Grader Operator images were obtained. CT imaging of the cervical spinal was performed without contrast. Data was reformatted into multiplanar images at the acquisition workstation. This CT examination was performed using dose optimization techniques as appropriate, variously including the following: *Automated exposure control *Adjustment of mA and/or kV according to patient size (this includes techniques or standardized protocols for targeted exams where dose is matched to indication/reason for exam; i.e. extremities or head) *Use of iterative reconstruction technique DLP: 1237 mGy-cm FINDINGS: There is slight anterolisthesis of C7 on T1 that appears related to facet degenerative changes at this level. Alignment is otherwise normal. Vertebral heights are preserved. No acute cervical spinal fracture. No abnormal prevertebral soft tissue swelling. There is loss of intervertebral disc height with associated sclerotic degenerative endplate changes, exuberant hypertrophic disc osteophyte spurring, and intervertebral vacuum disc phenomenon at multiple levels within the cervical spine. Bulging discs in conjunction with buckling of the ligamenta flava causes at least moderate canal stenosis at multiple levels with possible severe stenosis at C4-C5, C5-C6, and C6-C7. Uncovertebral joint spurring and congestion with facet degenerative change causes moderate to severe neuroforaminal encroachment at multiple levels within the cervical spine. Visualized soft tissues of the neck are unremarkable. There is spiculated scarring at the apex of the right lung that has remained grossly stable when compared to the CT scan of the chest from 12/18/2022. CT/CT cervical spine wo IV con IMPRESSION: Advanced multilevel degenerative spondylosis of the cervical spine. No acute fracture and no posttraumatic spinal subluxation. There is at least moderate canal stenosis at multiple levels with possible severe stenosis at the level of C4-C5, C5-C6, and C6-C7. If there are clinical symptoms of compressive myelopathy then a dedicated cervical spine MRI can be obtained for better anatomic characterization of the cord and canal.
--- NOTE | ~2023-08-28 | XR_ITS ---
EXAMINATION: XR CHEST CLINICAL INFORMATION: Question aspiration COMPARISON: 08/28/2023 TECHNIQUE: Frontal view of the chest was obtained. FINDINGS: Lung volumes are symmetric. Slightly coarsened appearance of the interstitium bilaterally. No focal consolidation is seen. No evidence of pneumothorax, pleural effusion, or pulmonary edema. Cardiac size is within normal limits. Calcification is present at the aortic arch. No acute osseous findings are seen. XR/XR chest 1V IMPRESSION: No focal consolidation identified. Mildly coarsened appearance of the interstitium may reflect underlying airways disease.
--- NOTE | ~2023-08-28 | CT_ITS ---
EXAMINATION: CT ANGIOGRAM OF THE CHEST WITH AND WITHOUT CONTRAST (CT PULMONARY ANGIOGRAM FOR PE) CLINICAL INFORMATION: Reason for Exam cough, sob, hypoxia ? aspiration vs pe COMPARISON: Previous chest x-ray July 2023, chest CT December 2022 and CTA of the abdomen March 2023 TECHNIQUE: Prior to contrast administration, noncontrast localization images were obtained. Subsequently, multidetector volumetric imaging was performed from the thoracic inlet to below the diaphragms following the administration of 65 mL Omnipaque 350 intravenous contrast. No contrast reaction reported Sagittal, coronal, and MIP oblique sagittal reformatted images were obtained on the CT workstation, uploaded to PACS, and reviewed. This CT examination was performed using dose optimization techniques as appropriate, variously including the following: *Automated exposure control *Adjustment of mA and/or kV according to patient size (this includes techniques or standardized protocols for targeted exams where dose is matched to indication/reason for exam; i.e. extremities or head) *Use of iterative reconstruction technique Total exam dose-length product 136 mGy-cm FINDINGS: QUALITY OF STUDY/CONTRAST BOLUS: Satisfactory. PULMONARY ARTERIES: No pulmonary emboli. THORACIC AORTA: No aneurysm. LUNG: Emphysema. Right apical pleural thickening and calcification that is stable. New left upper lobe nodule axial image 177 series 8. This is tubular or oval in shape and measures 9 x 9 x 1.5 cm in AP transverse and longitudinal dimension. Scattered areas of mild bronchial wall thickening and increased peribronchial attenuation, greatest in the lingula and left lower lobe suggestive active airways disease. Secretions in the distal trachea and left bronchi. PLEURA: No pleural effusion or pneumothorax. MEDIASTINUM: Normal heart size. No pericardial effusion. No hilar or mediastinal lymphadenopathy. No evidence of septal bowing or right heart strain. CORONARY ARTERY CALCIFICATION: Mild CHEST WALL/AXILLA: No axillary or internal mammary lymphadenopathy. OSSEOUS STRUCTURES: No acute or suspicious osseous abnormality. Degenerative changes of the spine. UPPER ABDOMEN: Multiple low-attenuation liver lesions suggestive of cysts that are stable. Partially visualized aortic stent graft. Aneurysm of abdominal aorta measuring 6 cm. This is similar to previous CTA of the abdomen and pelvis March 2023. Stenosis at the celiac axis origin. Round low-attenuation lesion in the lower pole of the right kidney suggestive of a cyst. No imaging Follow-up recommended. No reflux of contrast into the hepatic veins to suggest elevated right heart pressures. CT/CT angio chest PE protocol IMPRESSION: No evidence of pulmonary embolism. Emphysema. Airways disease with bronchial wall thickening and increased peribronchial attenuation, greatest in the lingula and left lower lobe. New 9 x 9 x 15 mm tubular shaped left upper lobe nodule. This could represent an inspissated bronchus. Infectious, inflammatory and neoplastic processes should be considered. Short-term chest CT follow-up following treatment recommended. VTE: negative
--- NOTE | ~2023-08-28 | FL_ITS ---
EXAMINATION: Modified Barium Swallows CLINICAL INFORMATION: Dysphagia COMPARISON: None TECHNIQUE: Modified barium swallow was performed under lateral fluoroscopy with patient in standing position. Different consistency of barium was administered by the speech therapist. FINDINGS: Aspiration was seen with multiple consistencies of barium. FLUOROSCOPY TIME: 2 minutes 21 seconds Number of Spot Images: 1 DOSE AREA PRODUCT: 540.7 uGy-m2 (microgray-meter squared) FL/FL barium swallow modified IMPRESSION: Aspiration was seen with multiple consistencies of barium. Refer to the dedicated speech therapy report for further clarification This procedure was performed by Josias Gibbons PA-C, and supervised by Dr. Arriaga
--- NOTE | 2023-08-28 11:26 | ED.GENADULT ---
HPI - General Adult General Chief complaint: Fall Stated complaint: FALLS,HIT HEAD PER EMS Time Seen by Provider: 08/28/23 11:15 Source: patient and EMS Mode of arrival: EMS Limitations: other (poor historian ) History of Present Illness HPI narrative: 73-year-old male history of age-related nuclear cataracts, BPH, constipation, frequent falls, impulse disorder, hypothyroidism, hyperlipidemia, generalized muscle weakness, paralytic gait, paranoid schizophrenia, TBI, trichotillomania, weakness presenting with falls, they have been happening frequently at [facility], with head strike unclear if there was loss of consciousness, patient not on blood thinners. Patient has been having progressively worsening physical deconditioning per EMS. Patient also noted to be hypoxic 83% on room air, this is not his baseline he does not wear oxygen. EMS placed him on 4 L upon arrival and he was saturating low 90s. Patient is noted to have crackles throughout for EMS. Patient states he is fine however he has a poor historian. Offers no other complaints at this time Related Data Home Medications Medication Instructions Recorded Confirmed acetaminophen 325 mg capsule 650 mg PO Q6H PRN Pain 09/20/22 07/14/23 bisacodyl 10 mg rectal suppository 10 mg LA DAILY PRN Constipation 09/20/22 07/14/23 (Dulcolax (bisacodyl)) diazepam 2 mg tablet 3 mg PO BID PRN Anxiety 09/20/22 07/14/23 sodium phosphates 19 gram-7 118 ml LA DAILY PRN Constipation 09/20/22 07/14/23 gram/118 mL enema (Fleet Enema) lactulose 10 gram/15 mL oral 15 ml PO BID 09/26/22 07/14/23 solution levothyroxine 112 mcg tablet 112 mcg PO DAILY 09/26/22 07/14/23 perphenazine 4 mg tablet 8 mg PO BID 09/26/22 07/14/23 propranolol 10 mg tablet 10 mg PO BID 09/26/22 07/14/23 simvastatin 40 mg tablet 40 mg PO BEDTIME 09/26/22 07/14/23 nicotine 7 mg/24 hr daily 1 patch transdermal Q24H 12/05/22 07/14/23 transdermal patch polyvinyl alcohol 1.4 % eye drops 1 drp ophthalmic (eye) TID-QID PRN 12/05/22 07/14/23 (Artificial Tears (polyvinyl Dry Eyes alcohol)) sennosides 8.6 mg tablet (senna) 17.2 mg PO DAILY PRN Constipation 12/05/22 07/14/23 doxycycline hyclate 100 mg tablet 100 mg PO BID 07/14/23 07/14/23 Previous Rx's Medication Instructions Recorded bethanechol chloride 50 mg tablet 50 mg PO BID 90 days #180 tabs 01/16/23 terazosin 5 mg capsule 5 mg PO BEDTIME 90 days #90 caps 01/16/23 albuterol sulfate 90 mcg/actuation 2 puff inhalation Q4-6H PRN 04/11/23 aerosol inhaler shortness of breath or wheezing 30 days #1 ea levofloxacin 250 mg tablet 250 mg PO Q24H #4 tabs 07/15/23 oseltamivir 75 mg capsule (Tamiflu) 75 mg PO BID #8 caps 07/15/23 prednisone 20 mg tablet 20 mg PO DAILY #3 tabs 07/15/23 Allergies Allergy/AdvReac Type Severity Reaction Status Date / Time cefpodoxime Allergy Intermediate Rash Verified 08/28/23 11:32 Review of Systems Review of Systems: Yes Unobtainable due to mental status PMFSH Past Medical History Attestation statement: The following information was validated with the patient. Source: old records reviewed and nursing notes reviewed Medical History COVID-19 vaccine series completed History of COVID-19 Resides in [facility] History of falling Personal history of traumatic brain injury Other specified intracranial injury without loss of consciousness, subsequent encounter Paralytic gait Benign prostatic hyperplasia without lower urinary tract symptoms Pain in left hip Primary generalized (osteo)arthritis Constipation, unspecified Impulse disorder, unspecified Trichotillomania Alcohol dependence, uncomplicated Hyperlipidemia, unspecified Hypothyroidism, unspecified Weakness Unspecified lack of coordination Muscle weakness (generalized) Age-related nuclear cataract, bilateral Unspecified abnormalities of gait and mobility Personal history of COVID-19 Repeated falls Lefort i fracture, initial encounter for closed fracture Unsteadiness on feet Other abnormalities of gait and mobility Dysphagia, oropharyngeal phase Paranoid schizophrenia Surgical History History of facial surgery Family History Family History Unknown No problems noted. Social History Social History Household Members: Unknown / Unable to assess Housing Other:: [facility] Are you a primary youth care worker to a significant other at home: No Do you presently have visiting nurse or other home services: Yes (resides @ [facility]) Unable to assess alcohol history related to: Unable to respond and Unknown Comment: 1:1 Patient Tobacco Use Status: Tobacco use Unknown Tobacco use type: Cigarette Cigarettes Per Day: 4 Years Smoked: 57 Smoked in Last 30 Days: No Use of substances other than those prescribed or required for medical reasons: No Advance Directives: No Advance Directives Information Provided: Yes Advance Directives on File: No Advance Directives Date on File: 12/05/22 service: No Current occupational status: disabled Physical Exam ED Vital Signs: Vital Signs - 24 hr 08/28/23 11:32 08/28/23 12:02 08/28/23 12:51 Temperature 97.0 F Pulse Rate 87 87 88 Respiratory Rate 18 18 16 Blood Pressure 100/69 117/85 Pulse Oximetry 90 L Oxygen Delivery Method Nasal Cannula Oxygen Flow Rate 08/28/23 13:07 08/28/23 14:09 08/28/23 14:38 Temperature Pulse Rate 78 76 Respiratory Rate 16 16 16 Blood Pressure 124/80 132/85 Pulse Oximetry 96 94 Oxygen Delivery Method Nasal Cannula Nasal Cannula Oxygen Flow Rate 2 2 BMI result Body Mass Index 16.5 vss Appearance: Alert.? Oriented to person not place, time or situation. ? No acute distress.? Head: Normocephalic, atraumatic, no step-offs or deformities Eyes: Pupils equal, round and reactive to light.? ENT: Pharynx normal.? Neck: Normal inspection.? Neck supple.? CVS: Normal heart rate and rhythm.? Pulses normal.? Respiratory: No respiratory distress.? Breath sounds crackles throughout..? Abdomen: Soft and nontender.? Skin: Skin warm and dry.? Normal skin color.? Normal skin turgor.? Extremities: No lower extremity edema.? No calf ttp. Global weakness Back: No midline tenderness, no C-spine tenderness, full range of motion, no CVA tenderness bilaterally Neuro: Oriented to person not place, time or situation..? No motor deficit.? No sensory deficit. CN 2-12 intact Course Reevaluation(s) Reevaluation #1: Spoke to patient's primary care provider from [facility] who states that patient did sustain a head strike according to nursing staff. Reports patient is usually ambulatory without difficulty alert and oriented, and pretty independent. Completely different than today's presentation. Labs, imaging pending. Patient is saturating well on 2 L. Will continue to monitor Hard time obtaining labs patient ripping off IV and trying to take off his collar. Time: 12:16 Reevaluation #2: Patient ripped off his cervical collar. Time: 12:17 Reevaluation #3: I did cancel antibiotics until allergies were confirmed. Patient does not have a penicillin allergy therefore Zosyn ordered at this time therefore there was a delay in ordering antibiotics secondary to unclear allergies for patient. Allergies verified and at this time antibiotics ordered safely. Time: 12:22 Additional Reevaluation(s): Patient now without collar wont let staff put it back on, agitated. CBC with leukocytosis and neutrophil predominance. Chemistry demonstrating an elevated sodium 159 likely contributing to patient's agitation/altered mental status, chloride 123, BUN 49 creatinine 1.48, troponin negative. Will reach out to nephrology for guidance. [address] Harden would like lactulose stopped and add D5W. If diuretic need can give thiazide diuretic. Sill agitated soft restraints were ordered (1301) will try to give low dose versed to obtain scans head ct is prioritized 1523 Patient mentating better. 1605 Hospitalist will admit this patient scans pending. Medications Administered Generic Name Dose Route Start Last Admin Trade Name Freq PRN Reason Stop Dose Admin Dextrose 1,000 mls @ 50 mls/hr 08/28/23 13:15 08/28/23 14:05 D5w IVCONT 50 mls/hr .Q20H AMARILYS Administration Discontinued Medications Generic Name Dose Route Start Last Admin Trade Name Freq PRN Reason Stop Dose Admin Albuterol Sulfate 2.5 mg/ 0 mg 08/28/23 11:43 08/28/23 11:48 Albuterol/Ipratropium 3 ml INHALE 08/28/23 11:44 1 dose ONCE ONE Administration Sodium Chloride 500 mls @ 500 mls/hr 08/28/23 12:15 08/28/23 13:50 Ns IV 08/28/23 13:14 Infused .Q1H AMARILYS Infusion Piperacillin Sod/Tazobactam 50 mls @ 100 mls/hr 08/28/23 12:21 08/28/23 12:50 Sod 3.375 gm/ Sodium Chloride IV 08/28/23 12:50 Infused ONCE ONE Infusion Sodium Chloride 1,434 mls @ 1,434 mls/hr 08/28/23 12:37 08/28/23 13:50 Ns 30 ml/kg infuse over 1 hr (1434 ml) 08/28/23 13:36 Infused IV Infusion .Q1H STA Iohexol 65 ml 08/28/23 15:34 08/28/23 15:35 Iohexol 350 Mg/Ml 75 Ml Infus..Btl IV 08/28/23 15:35 65 ml ONCE ONE Administration Midazolam HCl 1 mg 08/28/23 13:19 08/28/23 13:31 Midazolam Hcl/Pf 2 Mg/2 Ml Vial IVPUSH 08/28/23 13:20 1 mg ONCE ONE Administration Medical Decision Making Medical Decision Making [facility] Narrative: 1128 73 yo M presents w/ fall, weakness and hypoxia from SNF PE crackles throughout 83% on RA and low 90s on 2L Patient was noted to be hypotensive and hypoxic. At this time infection suspected. Prophylactic antibiotics ordered as well as some fluids. Urine physical exam concerning for worsening physical deconditioning leading to falls with head strike will rule out intracranial hemorrhage, stroke. Unlikely posterior stroke. Will also rule out traumatic injury cervical spine although unlikely, patient was collared out of precaution by EMS. This is likely a contusion with concussion. Unlikely ACS, PE, dissection however will rule out PE, ACS due to hypoxia. Also rule out CHF. Other differentials include pneumonia versus viral illness. Patient appears comfortable at this time and does not appear to be in any distress. Sepsis focus exam done upon initial assment Differential Diagnosis Differential Diagnoses: The differential diagnosis associated with the presentation includes Urine physical exam concerning for worsening physical deconditioning leading to falls with head strike will rule out intracranial hemorrhage, stroke. Unlikely posterior stroke. Will also rule out traumatic injury cervical spine although unlikely, patient was collared out of precaution by EMS. This is likely a contusion with concussion. Unlikely ACS, PE, dissection however will rule out PE, ACS due to hypoxia. Also rule out CHF. Other differentials include pneumonia versus viral illness. Patient appears comfortable at this time and does not appear to be in any distress. Admission/Observation Consideration of admission/observation: Escalation of care including admission/observation considered Likely Lab Data MDM Lab Attestation statement: I reviewed the patient's lab results. 08/28/23 11:53 08/28/23 11:53 Labs: Lab Results 08/28/23 08/28/23 08/28/23 Range/Units 11:53 12:41 14:20 WBC 11.3 H (4.8-10.8) X10*3/uL RBC 5.20 D (4.60-5.80) X10*6/uL Hgb 13.8 L D (14.0-18.0) g/dl Hct 45.8 D (42.0-52.0) % MCV 88.1 (80.0-98.0) fL MCH 26.5 L (27.0-33.0) pg MCHC 30.1 L (31.0-36.0) g/dl RDW 15.4 (11.0-16.0) % Plt Count 262 D (160-400) X10*3/uL MPV 10.6 (9.4-12.4) fL Immature Gran % (Auto) 0.4 (0.0-0.4) % Neut % (Auto) 79.1 H (45-73) % Lymph % (Auto) 12.1 L (20-40) % Parker % (Auto) 7.9 (2-11) % Eos % (Auto) 0.1 (0-4) % Baso % (Auto) 0.4 (0-2) % Lymph # (Auto) 1.4 (1.2-4.9) X10*3/uL Parker # (Auto) 0.9 (0.1-1.2) X10*3/uL Eos # (Auto) 0.0 (0.0-0.4) X10*3/uL Baso # (Auto) 0.1 (0.0-0.2) X10*3/uL Abs Immat Gran (auto) 0.04 H (0.00-0.03) X10*3/uL Absolute Neuts (auto) 8.9 H (2.0-8.3) x10*3/uL Absolute Nucleated RBC 0.000 (0.0-0.012) X10*3/uL Nucleated RBC % (auto) 0.0 (0.0-0.2) /100WBC PT 12.4 (11.1-13.3) SEC INR 1.0 (0.9-1.1) Sodium 159 H (135-145) mmol/L Potassium 4.8 (3.3-5.1) mmol/L Chloride 123 H (96-108) mmol/L Carbon Dioxide 23 (22-29) mmol/L Anion Gap 18 (12-20) BUN 49 H (9-16) mg/dL Creatinine 1.48 H (0.5-1.4) mg/dL Estim Creat Clear Calc 30.0 Estimated GFR 47 Random Glucose 80 (60-115) mg/dL Osmolality (281-305) mosm/kg Lactic Acid 1.8 (0.5-2.0) mmol/L Calcium 9.9 D (8.4-10.2) mg/dL Total Bilirubin 0.3 (0.0-1.0) mg/dL AST 26 (5-37) U/L ALT 18 (0-40) U/L Alkaline Phosphatase 130 H (39-117) U/L Ammonia (13-55) umol/L Troponin I High Sens < 2.7 (<3.5-35.0) ng/L Total Protein 7.6 (6.5-8.0) g/dL Albumin 3.7 (3.5-5.0) g/dL Urine Color Dark Yellow Urine Appearance Turbid Urine pH 7.5 (5.0-9.0) Ur Specific [place] 1.020 (1.005-1.025) Urine Protein 300 (3+) H (Neg-Trace) mg/dL Urine Glucose (UA) Negative (Negative) mg/dL Urine Ketones Trace (Negative) mg/dL Urine Blood Large (3+) H (Negative) Urine Nitrite Negative (Negative) Ur Leukocyte Esterase Large (3+) H (Negative) Urine RBC >20 H (0-2) /HPF Urine WBC >50 H (0-5) /HPF Ur Squamous Epith Cells 6-10 (0-2) /HPF Other Crystals Present Urine Bacteria 4+ (None Seen) Hyaline Casts 3-5 (0-2) /LPF Urine Osmolality 543 (373-1093) mosm/kg 08/28/23 Range/Units 14:41 WBC (4.8-10.8) X10*3/uL RBC (4.60-5.80) X10*6/uL Hgb (14.0-18.0) g/dl Hct (42.0-52.0) % MCV (80.0-98.0) fL MCH (27.0-33.0) pg MCHC (31.0-36.0) g/dl RDW (11.0-16.0) % Plt Count (160-400) X10*3/uL MPV (9.4-12.4) fL Immature Gran % (Auto) (0.0-0.4) % Neut % (Auto) (45-73) % Lymph % (Auto) (20-40) % Parker % (Auto) (2-11) % Eos % (Auto) (0-4) % Baso % (Auto) (0-2) % Lymph # (Auto) (1.2-4.9) X10*3/uL Parker # (Auto) (0.1-1.2) X10*3/uL Eos # (Auto) (0.0-0.4) X10*3/uL Baso # (Auto) (0.0-0.2) X10*3/uL Abs Immat Gran (auto) (0.00-0.03) X10*3/uL Absolute Neuts (auto) (2.0-8.3) x10*3/uL Absolute Nucleated RBC (0.0-0.012) X10*3/uL Nucleated RBC % (auto) (0.0-0.2) /100WBC PT (11.1-13.3) SEC INR (0.9-1.1) Sodium (135-145) mmol/L Potassium (3.3-5.1) mmol/L Chloride (96-108) mmol/L Carbon Dioxide (22-29) mmol/L Anion Gap (12-20) BUN (9-16) mg/dL Creatinine (0.5-1.4) mg/dL Estim Creat Clear Calc Estimated GFR Random Glucose (60-115) mg/dL Osmolality 349 H (281-305) mosm/kg Lactic Acid (0.5-2.0) mmol/L Calcium (8.4-10.2) mg/dL Total Bilirubin (0.0-1.0) mg/dL AST (5-37) U/L ALT (0-40) U/L Alkaline Phosphatase (39-117) U/L Ammonia 23 (13-55) umol/L Troponin I High Sens (<3.5-35.0) ng/L Total Protein (6.5-8.0) g/dL Albumin (3.5-5.0) g/dL Urine Color Urine Appearance Urine pH (5.0-9.0) Ur Specific [place] (1.005-1.025) Urine Protein (Neg-Trace) mg/dL Urine Glucose (UA) (Negative) mg/dL Urine Ketones (Negative) mg/dL Urine Blood (Negative) Urine Nitrite (Negative) Ur Leukocyte Esterase (Negative) Urine RBC (0-2) /HPF Urine WBC (0-5) /HPF Ur Squamous Epith Cells (0-2) /HPF Other Crystals Urine Bacteria (None Seen) Hyaline Casts (0-2) /LPF Urine Osmolality (373-1093) mosm/kg Independent Interpretation I performed an independent interpretation of an: EKG and CT Scan Radiology Impression Discussion of test interpretation with radiology: I have reviewed the radiologist's reading. External Record Review External record reviewed: Inpatient record, Office record, Outpatient record, Prior outpatient labs, Prior outpatient radiology, Primary care record, Outside ED record and Other Critical Care Time Critical Care Time Critical Care Time: Yes Total Critical Care Time: 45 Attestation: I attest to this time spent taking care of the patient, obtaining history, physical, reviewing labs, imaging, speaking to my attending, speaking to specialist. Discharge Plan Discharge Clinical Impression: Encephalopathy, Acute UTI, Hypernatremia Patient Disposition: Admitted As Inpatient
[2023-08-28] MEDS: Albuterol Sulfate 2.5 MG, Albuterol/Iprat 2.5/0.5MG 3 ML 3 ML INHALE (11:48)
--- NOTE | 2023-08-28 12:00 | PC.NURSE ---
a&ox2. unaware on where he is/why he's here. pt was bib[facility] from [facility] d/t 2 falls in the past 2 days. +headstrike, -loc, -thinners. bump to right side of forehead. per SNF staff - an increase in productive cough/excessive drooling has been noted. pt presented on 84% via RA upon EMS arrival. EMS placed pt on 4L via NC - went up to 90%. pt placed on 2L via NC upon ED arrival. productive cough/excessive drooling noted. sepsis protocol initiated by ED provider. RT bedside assessing/suctioning pt. rectal temp obtained. 18gIV placed in the forearm by EMS. IV access wrapped in gauze for safety precautions d/t pt continuously attempting to pull hospital equipment off of body. sob/wob noted. respirations even/labored. pt changed into hospital attire/repositioned to comfort. plan of care ongoing.
[2023-08-28 12:08] LABS: MANUAL DIFF FLAG NO
[2023-08-28 12:12] LABS: Basophils Absolute Auto 0.1 X10*3/uL (0.0-0.2); Basophils Percent Auto 0.4 % (0-2); Eosinophils Percent Auto 0.1 % (0-4); Hematocrit 45.8 % (42.0-52.0); Hemoglobin 13.8 g/dl (14.0-18.0); Imm Gran Abs Auto 0.04 X10*3/uL (0.00-0.03); Imm Gran Pct Auto 0.4 % (0.0-0.4); Lymphocytes Absolute Auto 1.4 X10*3/uL (1.2-4.9); Lymphocytes Percent Auto 12.1 % (20-40); Mean Corpuscular HGB Conc 30.1 g/dl (31.0-36.0); Mean Corpuscular Hemoglobin 26.5 pg (27.0-33.0); Mean Corpuscular Volume 88.1 fL (80.0-98.0); Mean Platelet Volume 10.6 fL (9.4-12.4); Monocytes Absolute Auto 0.9 X10*3/uL (0.1-1.2); Monocytes Percent Auto 7.9 % (2-11); Neutrophils Absolute Auto 8.9 x10*3/uL (2.0-8.3); Neutrophils Percent Auto 79.1 % (45-73); Platelet Count 262 X10*3/uL (160-400); Red Cell Distribution Width 15.4 % (11.0-16.0); White Blood Count 11.3 X10*3/uL (4.8-10.8)
--- NOTE | 2023-08-28 12:23 | PC.NURSE ---
pt removed c-collar on his own. this RN placed collar back on pt where he then proceeded to take it off again. provider notified/aware. pt no longer has c-collar placed prior to getting CT completed.
[2023-08-28 12:32] LABS: Alanine Aminotransferase 18 U/L (0-40); Albumin Level 3.7 g/dL (3.5-5.0); Alkaline Phosphatase 130 U/L (39-117); Anion Gap 18 (12-20); Aspartate Amino Transferase 26 U/L (5-37); Bilirubin Total 0.3 mg/dL (0.0-1.0); Blood Urea Nitrogen 49 mg/dL (9-16); Calcium 9.9 mg/dL (8.4-10.2); Carbon Dioxide 23 mmol/L (22-29); Chloride 123 mmol/L (96-108); Estimated Glomerular Filt Rate 47; Glucose Random 80 mg/dL (60-115); Potassium 4.8 mmol/L (3.3-5.1); Sodium 159 mmol/L (135-145); Total Protein 7.6 g/dL (6.5-8.0)
[2023-08-28] MEDS: Piperacillin Sodium/Tazobactam 3.375 GM in 0.9 % Sodium Chloride 50 ML IV ×2 (12:42→19:22)
[2023-08-28] MEDS: 0.9 % Sodium Chloride 1,434 ML 1434 ML IV (12:43)
[2023-08-28] MEDS: 0.9 % Sodium Chloride 500 ML IV (12:43)
[2023-08-28 12:53] LABS: Troponin-I High Sensitivity < 2.7 ng/L (<3.5-35.0)
--- NOTE | 2023-08-28 12:54 | PC.NURSE ---
tech found pt in room with IV access ripped out of arm/in bed despite access being wrapped w/ gauze for safety precautions. new 18gIV placed in the right forearm - IVF/medications administered per provider order. per studio operations engineer in charge - pt placed in soft restraints for safety precautions at this time. productive cough still noted. excessive drooling present. pt refusing for O2 to be placed on his finger. pt agitated/restless at this time. will notify provider.
[2023-08-28 12:56] LABS: Prothrombin Time 12.4 SEC (11.1-13.3)
[2023-08-28 13:03] LABS: Lactic Acid 1.8 mmol/L (0.5-2.0)
[2023-08-28] MEDS: Midazolam HCl/PF 2 MG/2 ML VIAL 1 MG IVPUSH (13:31)
[2023-08-28] MEDS: Dextrose 5 % 1,000 ML 50 ML IVCONT (14:05)
--- NOTE | 2023-08-28 14:07 | PC.NURSE ---
medication administered per provider order. hyatt catheter inserted. urine obtained/sent to lab. bladder scan post catheterization displayed 0ml. dark cloudy/bloody urine noted immediately post output. pt now waiting for CT to be completed. respirations even/slightly labored d/t drooling/productive cough. pt remains in soft restraints at this time. call diego placed within reach.
[2023-08-28 14:40] LABS: Osmolality Urine 543 mosm/kg (373-1093)
[2023-08-28 14:43] LABS: Appearance Urine Turbid; Color Urine Dark Yellow; Glucose Urine UA Negative (Negative); Leukocyte Esterase Urine Large (3+) (Negative); Nitrite Urine Negative (Negative); PH 7.5 (5.0-9.0); UMIC TRIGGER UACC YES; Urine Blood Large (3+) (Negative); Urine Ketones Trace mg/dL (Negative); Urine Protein 300 (3+) mg/dL (Neg-Trace)
[2023-08-28 14:54] LABS: Ammonia 23 umol/L (13-55)
[2023-08-28 15:00] LABS: Bacteria Urine 4+ (None Seen); Other Crystals Urine Present; RBC Urine >20 /HPF (0-2); UACC Culture Trigger YES; WBC Urine >50 /HPF (0-5)
--- NOTE | 2023-08-28 15:06 | PC.NURSE ---
pt seemingly less agitated/not pulling at medical equipment at this time. pt removed from soft restraints. pt removed hyatt catheter on his own. no trauma noted. provider notified/aware. pt now being transferred to CT at this time.
[2023-08-28 15:28] LABS: Osmolality, Serum 349 mosm/kg (281-305)
[2023-08-28] MEDS: iohexoL 350 MG/ML 75 ML INFUS..BTL 65 ML IV (15:35)
--- NOTE | 2023-08-28 15:37 | PM.EVENT ---
Event Note Date of Service: 08/28/23 Event Note: Chart reviewed Discussed with team Start D5 W at 50 cc/hr to replace free water If a diuretic is needed, would recommed a Thiazide ( HCTZ PO or Diuril IV) Full consult to follow Time Spent With Patient Time: Total time managing care of this patient today ____ minutes.
--- NOTE | 2023-08-28 16:42 | PHA.MEDREC ---
Pharmacy Consult ? Medication Reconciliation Pharmacy has completed the medication reconciliation. Patient came with list from [facility]. Confirmed all medications Giovanna Friend CPhT
--- NOTE | 2023-08-28 16:58 | PM.IMHP ---
History of Present Illness Date of Service: 08/28/23 Attending physician on admission: Cj Ledesma Chief Complaint: Fall with headstrike Pt is a 73-year-old male with a PMH significant for?TBI, AAA s/p elective repair, COPD on prn home O2, hypothyroidism, HTN, HLD, BPH, and paranoid schizophrenia who presents to the ED from SNF for evaluation of generalized weakness with frequent falls. Pt is a resident of [facility] and has had progressively worsening physical decompensation with frequent falls with head strike for the past few days. Patient is not on blood thinners, and it is unclear whether there was any loss of consciousness. Pt is alert and oriented to self only and is thus incapable of providing accurate HPI, which is instead obtained from chart and provider review. Patient initially presented to the ED agitated, nonverbal, and with altered mental status, but mentation improved during the course of treatment. EMS found patient hypoxic, satting at 83% on RA. Patient has a history of COPD, emphysema, and hx of acute hypoxic episodes and is on prn home O2. Pt himself offers no acute medical complaints but pt is AOx1 and a poor historian. In the ED was satting at 90% on 4 L NC, otherwise initial vitals all WNL. Repeat temperature found to be 93.5 rectally. Labs were significant for WBC 1.3, sodium 159, chloride 123, BUN 49, creatinine 1.48, alk-phos 130. UA positive for UTI. CT of head found extensive chronic changes with probable old right temporal lobe infarct, but no acute fracture or acute intracranial hemorrhage. ?CT of cervical spine found no acute fracture or posttraumatic spinal subluxation, but did show chronic advanced multilevel degenerative spondylolysis and at least moderate canal stenosis. CTA of chest found no evidence of pulmonary embolism, but did show emphysema and airway disease with bronchial wall thickening and increased peribronchial attenuation, suggestive of either infectious, inflammatory, or neoplastic processes. Pt was treated with DuoNeb, Zosyn, IVF, midazolam, and started on D5W. Pt will be admitted to the hospital for treatment and further evaluation of UTI, KELLY, and hypernatremia. Review of Systems Review of Systems: Unable to obtain due to patient's mentation [facility] Medical History COVID-19 vaccine series completed History of COVID-19 Resides in alf facility History of falling Personal history of traumatic brain injury Other specified intracranial injury without loss of consciousness, subsequent encounter Paralytic gait Benign prostatic hyperplasia without lower urinary tract symptoms Pain in left hip Primary generalized (osteo)arthritis Constipation, unspecified Impulse disorder, unspecified Trichotillomania Alcohol dependence, uncomplicated Hyperlipidemia, unspecified Hypothyroidism, unspecified Weakness Unspecified lack of coordination Muscle weakness (generalized) Age-related nuclear cataract, bilateral Unspecified abnormalities of gait and mobility Personal history of COVID-19 Repeated falls Lefort i fracture, initial encounter for closed fracture Unsteadiness on feet Other abnormalities of gait and mobility Dysphagia, oropharyngeal phase Paranoid schizophrenia Family History Unknown No problems noted. Surgical History History of facial surgery Social History Household Members: Unknown / Unable to assess Housing Other:: [facility] Are you a primary youth care professional to a significant other at home: No Do you presently have visiting nurse or other home services: Yes (resides @ [facility]) Unable to assess alcohol history related to: Unable to respond and Unknown Comment: 1:1 Patient Tobacco Use Status: Tobacco use Unknown Tobacco use type: Cigarette Cigarettes Per Day: 4 Years Smoked: 57 Advance Directives Date on File: 12/05/22 service: No Current occupational status: disabled Meds Allergies Allergy/AdvReac Type Severity Reaction Status Date / Time cefpodoxime Allergy Intermediate Rash Verified 08/28/23 11:32 Active Medications: Current Medications Dextrose (D5w) 1,000 mls @ 50 mls/hr IVCONT .Q20H AMARILYS Last Admin: 08/28/23 14:05 Dose: 50 mls/hr Home Medications Medication Instructions Recorded Confirmed Last Taken Type acetaminophen 325 mg capsule 650 mg PO Q6H PRN Pain 09/20/22 08/28/23 Unknown History bisacodyl 10 mg rectal suppository 10 mg AL DAILY PRN Constipation 09/20/22 08/28/23 Unknown History (Dulcolax (bisacodyl)) diazepam 2 mg tablet 3 mg PO BID Anxiety 09/20/22 08/28/23 Unknown History sodium phosphates 19 gram-7 118 ml AL DAILY PRN Constipation 09/20/22 08/28/23 Unknown History gram/118 mL enema (Fleet Enema) lactulose 10 gram/15 mL oral 15 ml PO BID 09/26/22 08/28/23 Unknown History solution levothyroxine 112 mcg tablet 112 mcg PO DAILY 09/26/22 08/28/23 Unknown History perphenazine 4 mg tablet 8 mg PO BID 09/26/22 08/28/23 Unknown History propranolol 10 mg tablet 10 mg PO BID 09/26/22 08/28/23 Unknown History simvastatin 40 mg tablet 40 mg PO BEDTIME 09/26/22 08/28/23 Unknown History nicotine 7 mg/24 hr daily 1 patch transdermal Q24H PRN 12/05/22 08/28/23 Unknown History transdermal patch Smoking Cessation polyvinyl alcohol 1.4 % eye drops 1 drp ophthalmic (eye) TID-QID PRN 12/05/22 08/28/23 Unknown History (Artificial Tears (polyvinyl Dry Eyes alcohol)) sennosides 8.6 mg tablet (senna) 17.2 mg PO DAILY PRN Constipation 12/05/22 08/28/23 Unknown History Physical Exam Vital Signs and Narrative: Vital Signs: Last Vital Signs Temp 97.0 F 08/28/23 11:32 Pulse 79 08/28/23 16:14 Resp 16 08/28/23 16:14 BP 108/68 08/28/23 16:14 Pulse Ox 96 08/28/23 16:14 O2 Del Method Nasal Cannula 08/28/23 16:14 O2 Flow Rate 2 08/28/23 14:38 Oxygen Flow Rate 4 08/28/23 11:32 BMI result Body Mass Index 16.5 Constitutional: Alert, cachectic, frail looking, in no acute distress. Mental Status: Oriented to person only, not to place, time, or situation. Eyes: Pupils are equal, round, and reactive to light. Ear, Nose, and Throat: Oropharynx clear, mucous membranes moist. Ears and nose without deformities. Trachea midline. Respiratory: Diffuse coarse expiratory breath sounds bilaterally. Cardiovascular: S1, S2 regular. No murmurs, rubs, or gallops. Gastrointestinal: Abdomen soft, non-tender, non-distended. Normal bowel sounds. Neurologic: Cranial nerves II-XII are grossly intact bilaterally. No focal neurological deficits. Moves all extremities spontaneously. Skin: Warm, dry. Musculoskeletal: No cyanosis or clubbing. Extremities: No edema. Psychiatric: Normal mood and affect. Results Labs 08/28/23 11:53 08/28/23 11:53 Labs: Laboratory Results - last 24 hr 08/28/23 08/28/23 08/28/23 11:53 12:41 14:20 MCV 88.1 MCH 26.5 L MCHC 30.1 L RDW 15.4 Plt Count 262 D MPV 10.6 Immature Gran % (Auto) 0.4 Neut % (Auto) 79.1 H Lymph % (Auto) 12.1 L [place] % (Auto) 7.9 Eos % (Auto) 0.1 Baso % (Auto) 0.4 Lymph # (Auto) 1.4 [place] # (Auto) 0.9 Eos # (Auto) 0.0 Baso # (Auto) 0.1 Abs Immat Gran (auto) 0.04 H Absolute Neuts (auto) 8.9 H Absolute Nucleated RBC 0.000 Nucleated RBC % (auto) 0.0 PT 12.4 INR 1.0 Anion Gap 18 Estim Creat Clear Calc 30.0 Estimated GFR 47 Random Glucose 80 Osmolality Lactic Acid 1.8 Calcium 9.9 D Total Bilirubin 0.3 AST 26 ALT 18 Alkaline Phosphatase 130 H Ammonia Total Protein 7.6 Albumin 3.7 Urine Color Dark Yellow Urine Appearance Turbid Urine pH 7.5 Ur Specific Annabella 1.020 Urine Protein 300 (3+) H Urine Glucose (UA) Negative Urine Ketones Trace Urine Blood Large (3+) H Urine Nitrite Negative Ur Leukocyte Esterase Large (3+) H Urine RBC >20 H Urine WBC >50 H Ur Squamous Epith Cells 6-10 Other Crystals Present Urine Bacteria 4+ Hyaline Casts 3-5 Urine Osmolality 543 08/28/23 14:41 MCV MCH MCHC RDW Plt Count MPV Immature Gran % (Auto) Neut % (Auto) Lymph % (Auto) [place] % (Auto) Eos % (Auto) Baso % (Auto) Lymph # (Auto) [place] # (Auto) Eos # (Auto) Baso # (Auto) Abs Immat Gran (auto) Absolute Neuts (auto) Absolute Nucleated RBC Nucleated RBC % (auto) PT INR Anion Gap Estim Creat Clear Calc Estimated GFR Random Glucose Osmolality 349 H Lactic Acid Calcium Total Bilirubin AST ALT Alkaline Phosphatase Ammonia 23 Total Protein Albumin Urine Color Urine Appearance Urine pH Ur Specific Annabella Urine Protein Urine Glucose (UA) Urine Ketones Urine Blood Urine Nitrite Ur Leukocyte Esterase Urine RBC Urine WBC Ur Squamous Epith Cells Other Crystals Urine Bacteria Hyaline Casts Urine Osmolality Imaging Radiologist's Impressions: Impressions Cervical Spine CT 08/28/23 15:35 IMPRESSION: Advanced multilevel degenerative spondylosis of the cervical spine. No acute fracture and no posttraumatic spinal subluxation. There is at least moderate canal stenosis at multiple levels with possible severe stenosis at the level of C4-C5, C5-C6, and C6-C7. If there are clinical symptoms of compressive myelopathy then a dedicated cervical spine MRI can be obtained for better anatomic characterization of the cord and canal. Head CT 08/28/23 15:35 IMPRESSION: Extensive chronic change. 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 No acute fracture or acute intracranial hemorrhage. Assessment and Plan (1) Hypernatremia: Status: Acute (2) Acute UTI: Status: Acute Plan Pt is a 73-year-old male with a PMH significant for?TBI, AAA s/p elective repair, COPD on prn home O2, hypothyroidism, HTN, HLD, BPH, and paranoid schizophrenia who presents to the ED from SNF for evaluation of generalized weakness with frequent falls. Hypernatremia Patient's sodium 159 at time of presentation Patient is started on D5W at 50 mL/hr to replace free water, per nephrology Nephrology consult Nephrology recommends thiazide diuretic if needed Follow sodium UTI UA positive for UTI Pt being covered by Zosyn, started 08/28/2023 Pt does not meet sepsis criteria: No fever, tachycardia, tachypnea, or leukocytosis; lactic acid WNL Acute on chronic hypoxic respiratory failure Possibly secondary to aspiration pneumonia CTA with possible inspissated bronchus possibly secondary to infectious, inflammatory, or neoplastic process Will empirically treat with Zosyn, started 08/28/2023 Aspiration precautions Titrate supplemental O2 >92, wean as tolerated KELLY Creatinine 1.48 (baseline 0.80) Pt received IVF in ED Follow BNP Hypothermia Pt's rectal temperature 93.5 with repeat 94.7 Continue Nancy Lazcano Follow temp Diet/Protein calorie malnutrition Patient with TBI, dysphagia, dysarthria Pureed diet with honey thick liquids Magic cup supplement bid Requires assistance and monitoring with eating COPD Continue home inhalers Will be given DuoNebs Hypothyroidism Continue levothyroxine Hx of TBI, paranoid schizophrenia Continue home meds Full Code Attending:?Dr. Delatorre DVT Prophylaxis: Lovenox Pt will require a hospitalization of at least two nights for treatment of?KELLY, UTI, and hyponatremia. Given patient's many significant comorbidities, patient required hospitalized care for treatment with IV antibiotics, IV hypotonic fluid, close monitoring of labs, and specialist consultation. Quality Stroke Does the patient have a stroke diagnosis?: No VTE Prior VTE?: No VTE Risk Level:: Medical - moderate - high VTE Device Contraindication: Treatment Not Indicated VTE Drug Contraindication: N/A - Med Ordered
[2023-08-28 17:14] LABS: Venous Blood Gas Refer to POC result
[2023-08-28 17:15] LABS: VBG Base Excess 2.9 mmol/L; VBG HCO3 26 mmol/L (22-26); VBG pCO2 35 mmHg; VBG pH 7.47 (7.32-7.43); VBG pO2 181 mmHg
--- NOTE | 2023-08-28 17:44 | PC.NURSE ---
tech unable to obtain oral temperature. tympanic temperature noted by tech to be 95.5. repeat rectal temp obtained displaying 93.5. admitting provider notified/aware. pt placed on bear-hugger. will obtain repeat rectal temp shortly. respirations remain even and unlabored. call diego placed within reach.
[2023-08-28] MEDS: Enoxaparin Sodium 40 MG/0.4 ML SYRINGE SUBCUT (18:12)
--- NOTE | 2023-08-28 18:16 | PC.NURSE ---
repeat rectal temp obtained displaying 94.7 - admitting provider notified/aware. bear-hugger placed back on pt at this time. pt repositioned to comfort. respirations remain even and unlabored. call diego placed within reach.
--- NOTE | 2023-08-28 19:13 | PC.NURSE ---
this rn assumed care of pt. pt rectal temp obtained, provider verbal order to continue bear hugger at this time. pt resting in stretcher, no verbal complaints at this time.
--- NOTE | 2023-08-28 19:26 | PC.NURSE ---
pt medicated per mar at this time.
--- NOTE | 2023-08-28 20:33 | MHC.EDTECH ---
rectal Temp 96.4 pt taken off of bed hugger, pt cleaned and changed into clean hospital gown, linen changed red fall precaution socks and fall precaution wrist band put on PT
--- NOTE | 2023-08-28 20:37 | PC.NURSE ---
pt changed and repositioned in bed at this time.
[2023-08-28 21:12] LABS: Anion Gap 13 (12-20); Blood Urea Nitrogen 47 mg/dL (9-16); Calcium 8.9 mg/dL (8.4-10.2); Carbon Dioxide 24 mmol/L (22-29); Chloride 126 mmol/L (96-108); Creatinine Clr Calc Pharmacy 35.5; Estimated Glomerular Filt Rate 57; Glucose Random 124 mg/dL (60-115); Potassium 3.4 mmol/L (3.3-5.1); Sodium 160 mmol/L (135-145)
[2023-08-28] MEDS: diazePAM 2 MG TABLET 3 MG PO (21:42)
[2023-08-28] MEDS: Atorvastatin Calcium 20 MG TABLET PO (21:46)
[2023-08-28] MEDS: Bethanechol Chloride 25 MG TABLET 50 MG PO (21:46)
[2023-08-28] MEDS: Propranolol HCL 10 MG TABLET PO (21:47)
[2023-08-28] MEDS: Perphenazine 8 MG TABLET PO (21:48)
[2023-08-28] MEDS: Lactulose 20 GM/30 ML SOLUTION 10 GM PO (21:48)
[2023-08-28] MEDS: Doxazosin Mesylate 2 MG TABLET 4 MG PO (21:52)
[2023-08-29] VITALS (14 sets, daily range): BP systolic 70–99; BP diastolic 50–67; PULSE 51–87; RESP 12–20; TEMP 34.9–36.7; O2SAT 92–96; BMI 19.3
[2023-08-29] MEDS: vancomycin HCL 1,250 MG in 0.9 % Sodium Chloride 250 ML 166.67 MG IV (00:23)
[2023-08-29] MEDS: Dextrose 5 % 1,000 ML 150 ML IVCONT ×3 (02:00→16:54)
[2023-08-29] MEDS: Piperacillin Sodium/Tazobactam 3.375 GM in 0.9 % Sodium Chloride 50 ML IV ×4 (02:01→18:11)
[2023-08-29 07:07] LABS: Anion Gap 12 (12-20); Blood Urea Nitrogen 45 mg/dL (9-16); Calcium 8.5 mg/dL (8.4-10.2); Carbon Dioxide 22 mmol/L (22-29); Chloride 124 mmol/L (96-108); Creatinine Clr Calc Pharmacy 28.3; Estimated Glomerular Filt Rate 44; Glucose Random 135 mg/dL (60-115); Potassium 3.4 mmol/L (3.3-5.1); Sodium 155 mmol/L (135-145)
[2023-08-29] MEDS: Lactated Ringers 1,000 ML 999 ML IV (07:39)
--- NOTE | 2023-08-29 08:34 | MHC.CM.PN ---
CM spoke with Patient's Guardian/Latrice @ [phone] and addressed IMM with her (original will be mailed to Latrice and a copy has been placed on the chart). Patient is a LTC resident of [facility] and returning there is the goal; DAMARI has initiated and will follow for dc planning.
[2023-08-29] MEDS: Bethanechol Chloride 25 MG TABLET 50 MG PO (08:51)
[2023-08-29] MEDS: Perphenazine 8 MG TABLET PO ×2 (08:51→20:16)
[2023-08-29] MEDS: diazePAM 2 MG TABLET 3 MG PO (08:52)
[2023-08-29] MEDS: Lactulose 20 GM/30 ML SOLUTION 10 GM PO ×2 (08:52→20:15)
--- NOTE | 2023-08-29 10:06 | PM.CNNEP ---
History of Present Illness Reason for Consult Consult date: 09/02/23 Reason for consult: Hypernatremia Chief Complaint Chief complaint: Bradycardia History of Present Illness Narrative: 73-year-old resident of [facility] with TBI, AAA s/p elective repair, COPD on prn home O2, hypothyroidism, HTN, HLD, BPH, and paranoid schizophrenia who presented to the ED for evaluation of generalized weakness with frequent falls. Pt has had progressively worsening physical decompensation with frequent falls with head strike for the past few days. Patient is not on blood thinners, and it is unclear whether there was any loss of consciousness. Pt is alert and oriented to self only and is thus incapable of providing accurate HPI, which is instead obtained from chart and provider review. Patient initially presented to the ED agitated, nonverbal, and with altered mental status, but mentation improved during the course of treatment. EMS found patient hypoxic, satting at 83% on RA. Patient has a history of COPD, emphysema, and hx of acute hypoxic episodes and is on prn home O2. Pt himself offers no acute medical complaints but pt is AOx1 and a poor historian. Review of Systems Review of Systems Yes Unobtainable due to mental status PMFSH Past Medical History Medical History (Updated 09/02/23 @ 08:34 by Dale Kay MD) COVID-19 vaccine series completed History of COVID-19 Resides in [facility] facility History of falling Personal history of traumatic brain injury Other specified intracranial injury without loss of consciousness, subsequent encounter Paralytic gait Benign prostatic hyperplasia without lower urinary tract symptoms Pain in left hip Primary generalized (osteo)arthritis Constipation, unspecified Impulse disorder, unspecified Trichotillomania Alcohol dependence, uncomplicated Hyperlipidemia, unspecified Hypothyroidism, unspecified Weakness Unspecified lack of coordination Muscle weakness (generalized) Age-related nuclear cataract, bilateral Unspecified abnormalities of gait and mobility Personal history of COVID-19 Repeated falls Lefort i fracture, initial encounter for closed fracture Unsteadiness on feet Other abnormalities of gait and mobility Dysphagia, oropharyngeal phase Paranoid schizophrenia Family History Family History Unknown No problems noted. 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 Patient Tobacco Use Status: Tobacco use Unknown Tobacco use type: Cigarette Cigarettes Per Day: 4 Years Smoked: 57 Advance Directives Date on File: 12/05/22 service: No Current occupational status: disabled Meds Allergies Allergy/AdvReac Type Severity Reaction Status Date / Time cefpodoxime Allergy Intermediate Rash Verified 08/28/23 11:32 Active Medications: Current Medications Acetaminophen (Acetaminophen 325 Mg Tablet) 650 mg PO Q6H PRN PRN Reason: Pain, Mild (Pain Scale 1-3) Albuterol Sulfate (Albuterol Sulfate 90 Mcg 8 Gm Inhaler) 2 puff INHALE Q4H PRN PRN Reason: shortness of breath or wheezing Artificial Tears (Artificial Tears 15 Ml Drops) 1 drop EYE-BOTH QID PRN PRN Reason: Dry Eyes Atorvastatin Calcium (Atorvastatin Calcium 20 Mg Tablet) 20 mg PO BEDTIME [facility] Last Admin: 08/28/23 21:46 Dose: 20 mg Bethanechol Chloride (Bethanechol Chloride 25 Mg Tablet) 50 mg PO BID [facility] Last Admin: 08/29/23 08:51 Dose: 50 mg Bisacodyl (Bisacodyl 10 Mg Supp.Rect) 10 mg [place] DAILY PRN PRN Reason: Constipation Diazepam (Diazepam 2 Mg Tablet) 3 mg PO BID [facility] Last Admin: 08/29/23 08:52 Dose: 3 mg Docusate Sodium (Docusate Sodium 100 Mg Capsule) 100 mg PO DAILY PRN PRN Reason: Constipation Doxazosin Mesylate (Doxazosin Mesylate 2 Mg Tablet) 4 mg PO BEDTIME [facility] Last Admin: 08/28/23 21:52 Dose: 4 mg Enoxaparin Sodium (Enoxaparin Sodium 40 Mg/0.4 Ml Syringe) 40 mg SUBCUT Q24H [facility] Last Admin: 08/28/23 18:12 Dose: 40 mg Dextrose (D5w) 1,000 mls @ 150 mls/hr IVCONT .Q6H40M [facility] Last Admin: 08/29/23 09:58 Dose: 150 mls/hr Piperacillin Sod/Tazobactam (Sod 3.375 gm/ Sodium Chloride) 50 mls @ 100 mls/hr IV Q6H [facility] Last Infusion: 08/29/23 07:25 Dose: Infused Vancomycin HCl 750 mg/ Sodium (Chloride) 265 mls @ 265 mls/hr IV Q24H [facility] Lactulose (Lactulose 20 Gm/30 Ml Solution) 10 gm PO BID [facility] Last Admin: 08/29/23 08:52 Dose: 10 gm Levothyroxine Sodium (Levothyroxine Sodium 112 Mcg Tablet) 112 mcg PO DAILY@0600 [facility] Last Admin: 08/29/23 06:28 Dose: Not Given Melatonin (Melatonin 3 Mg Tablet) 6 mg PO BEDTIME PRN PRN Reason: Insomnia Nicotine (Nicotine 7 Mg Patch.Td24) 7 mg TRANSDERMA DAILY PRN PRN Reason: Smoking Cessation Ondansetron HCl (Ondansetron Hcl 4 Mg/2 Ml Vial) 4 mg IVPUSH Q8H PRN PRN Reason: Nausea and Vomiting Perphenazine (Perphenazine 8 Mg Tablet) 8 mg PO BID [facility] Last Admin: 08/29/23 08:51 Dose: 8 mg Pharmacy Consult (Consult Rx Vancomycin Dosing) 1 each MISCELLANE DAILY PRN PRN Reason: Consult order Propranolol HCl (Propranolol Hcl 10 Mg Tablet) 10 mg PO BID [facility]; Protocol Last Admin: 08/29/23 08:52 Dose: Not Given Senna (Sennosides 8.6 Mg Tablet) 17.2 mg PO DAILY PRN PRN Reason: Constipation Sodium Biphosphate/Sodium Phosphate (Sodium Phosphate,[place]-Dibasic 133 Ml Enema) 118 ml [place] DAILY PRN PRN Reason: Constipation Sodium Chloride (0.9 % Sodium Chloride Flush 3 Ml Syringe) 3 ml IVFLUSH QSHIFT [facility] Last Admin: 08/29/23 07:39 Dose: Not Given Home Medications Medication Instructions Recorded Confirmed Last Taken Type acetaminophen 325 mg capsule 650 mg PO Q6H PRN Pain 09/20/22 08/28/23 Unknown History bisacodyl 10 mg rectal suppository 10 mg VT DAILY PRN Constipation 09/20/22 08/28/23 Unknown History (Dulcolax (bisacodyl)) diazepam 2 mg tablet 3 mg PO BID Anxiety 09/20/22 08/28/23 Unknown History sodium phosphates 19 gram-7 118 ml [place] DAILY PRN Constipation 09/20/22 08/28/23 Unknown History gram/118 mL enema (Fleet Enema) lactulose 10 gram/15 mL oral 15 ml PO BID 09/26/22 08/28/23 Unknown History solution levothyroxine 112 mcg tablet 112 mcg PO DAILY 09/26/22 08/28/23 Unknown History perphenazine 4 mg tablet 8 mg PO BID 09/26/22 08/28/23 Unknown History propranolol 10 mg tablet 10 mg PO BID 09/26/22 08/28/23 Unknown History simvastatin 40 mg tablet 40 mg PO BEDTIME 09/26/22 08/28/23 Unknown History nicotine 7 mg/24 hr daily 1 patch transdermal Q24H PRN 12/05/22 08/28/23 Unknown History transdermal patch Smoking Cessation polyvinyl alcohol 1.4 % eye drops 1 drp ophthalmic (eye) TID-QID PRN 12/05/22 08/28/23 Unknown History (Artificial Tears (polyvinyl Dry Eyes alcohol)) sennosides 8.6 mg tablet (senna) 17.2 mg PO DAILY PRN Constipation 12/05/22 08/28/23 Unknown History Physical Exam Vital Signs: Last Vital Signs Temp 98.1 F 08/29/23 07:17 Pulse 87 08/29/23 07:17 Resp 20 08/29/23 07:17 BP 71/55 L 08/29/23 07:17 Pulse Ox 95 08/29/23 07:17 O2 Del Method Nasal Cannula 08/29/23 07:17 O2 Flow Rate 2 08/29/23 07:17 Oxygen Flow Rate 4 08/28/23 11:32 BMI result Body Mass Index 16.5 Const General: ill appearing Neck Neck: Yes supple Resp Auscultation: clear to auscultation bilaterally Cardio Palpation: no palpable S3 Heart sounds: no rubs GI Palpation (GI): Soft to palpation Auscultation: normal bowel sounds Neuro Motor exam (neuro): no asterixis Results Lab Results 09/01/23 06:29 09/02/23 06:35 Lab results: Chemistry 08/28/23 08/28/23 08/29/23 11:53 20:38 06:00 Sodium 159 H 160 H* 155 H Potassium 4.8 3.4 D 3.4 Carbon Dioxide BUN 49 H 47 H 45 H Creatinine 1.48 H 1.25 1.57 H Calcium 9.9 D 8.9 D 8.5 Hematology 08/28/23 11:53 WBC 11.3 H Hgb 13.8 L D Plt Count 262 D Urinalysis 08/28/23 14:20 Urine Color Dark Yellow Urine Appearance Turbid Urine pH 7.5 Ur Specific [place] 1.020 Urine Protein 300 (3+) H Urine Glucose (UA) Negative Urine Ketones Trace Urine Blood Large (3+) H Urine Nitrite Negative Ur Leukocyte Esterase Large (3+) H Urine RBC >20 H Urine WBC >50 H Ur Squamous Epith Cells 6-10 Hyaline Casts 3-5 Urine Studies 08/28/23 14:20 Urine Osmolality 543 Ultrasound: RIGHT KIDNEY: 9.8 x 4.0 x 6.0 cm (SAG x AP x TRV). The kidney is normal in size, contour, and echogenicity. Renal cortical thickness is normal. No calculi. No hydronephrosis. Lower pole cyst with multiple septations measures 3.0 x 3.1 x 3.1 cm. LEFT KIDNEY: 9.5 x 3.6 x 4.4 cm (SAG x AP x TRV). The kidney is normal in size, contour, and echogenicity. Renal cortical thickness is normal. No calculi or focal parenchymal lesions. No hydronephrosis. US/US renal BI IMPRESSION: Septated cyst lower pole right kidney measuring 3.0 x 3.1 x 3.1 cm. This was previously described as a simple cyst by CT characterization on 04/01/2023 requiring no further imaging follow-up. Assessment and Plan (1) Hypernatremia: Status: Acute (2) KELLY (acute kidney injury): Status: Acute Plan Hypernatremia due to free water deficit in a setting of KELLY; Probably associated with poor PO intake KELLY most likely due to hypoperfusion Possible ATN No obstruction based on USG At risk for ongoing renal injury while on Vanco Suggest IV Hydration with hypotonic fluids Keep I > O with D5 W at 100 cc/hr Lactulose could lead to more free water loss via GI : Therefore DC Lactulose Maintain SBP > 100 Avoid hypotension; Can Add PO Midodrine 10 mg PO TID if SBP remains low Watch Vanco level and adjust dose Watch urine output No indicaiton for dialysis Procedures Date of Service Date of Service: 09/02/23
[2023-08-29 10:42] LABS: Anion Gap 13 (12-20); Blood Urea Nitrogen 43 mg/dL (9-16); Calcium 8.5 mg/dL (8.4-10.2); Carbon Dioxide 23 mmol/L (22-29); Chloride 121 mmol/L (96-108); Creatinine Clr Calc Pharmacy 28.8; Estimated Glomerular Filt Rate 45; Glucose Random 164 mg/dL (60-115); Potassium 3.6 mmol/L (3.3-5.1); Sodium 153 mmol/L (135-145)
[2023-08-29] MEDS: Midodrine HCl 5 MG TABLET PO ×3 (10:50→20:15)
--- NOTE | 2023-08-29 11:12 | MHC.CLN ---
PT IS MODERATELY MALNOURISHED PT WITH MODERATELY DEPLETED SUBCUTANEOUS FAT AND MILDLY DEPLETED MUSCLE MASS WITH BMI 19.3 WITH INCREASED NUTRITION NEEDS R/T ACUTE ILLNESS DIET RX: PUREED WITH HT LIQ-APPROPRIATE RECOMMEND ADDING MAGIC CUP TID WITH MEALS TO INCREASE KCALS SKIN INTACT MONITOR PO INTAKE CLOSELY SEE ALSO FULL CLINICAL NUTRITION ASSESSMENT
--- NOTE | 2023-08-29 11:48 | P.PNIM_ITS ---
Subjective Subjective Date of Service: 08/29/23 Interval History: Seen and evaluated this morning having troubles swallowing denies any pain or fever confused no other overnight events Review of Systems Review of Systems: Yes all other systems are reviewed and are negative Physical Exam 2 Vital Signs: Vital Signs: Last Vital Signs Temp 97.1 F 08/29/23 11:13 Pulse 83 08/29/23 11:13 Resp 20 08/29/23 11:13 BP 74/57 L 08/29/23 11:13 Pulse Ox 93 08/29/23 11:13 O2 Del Method Nasal Cannula 08/29/23 11:13 O2 Flow Rate 2 08/29/23 11:13 Oxygen Flow Rate 4 08/28/23 11:32 BMI result Body Mass Index 19.3 Const: Other: Constitutional : Awake, interactive, not in distress Neck : Normal inspection, Supple Cardiovascular : RRR, no JVP, no lower extremity edema Respiratory : good bilateral air entry, no crackles, wheezes or rhonchi Gastrointestinal: soft, lax, Normal bowel sounds, Non tender Skin : Warm, Dry Neurological : Alert to self and disoriented x3, No focal deficit Objective Data Active Medications Acetaminophen (Acetaminophen 325 Mg Tablet) 650 mg PO Q6H PRN PRN Reason: Pain, Mild (Pain Scale 1-3) Albuterol Sulfate (Albuterol Sulfate 90 Mcg 8 Gm Inhaler) 2 puff INHALE Q4H PRN PRN Reason: shortness of breath or wheezing Artificial Tears (Artificial Tears 15 Ml Drops) 1 drop EYE-BOTH QID PRN PRN Reason: Dry Eyes Atorvastatin Calcium (Atorvastatin Calcium 20 Mg Tablet) 20 mg PO BEDTIME [facility] Last Admin: 08/28/23 21:46 Dose: 20 mg Documented By: NADJA Bethanechol Chloride (Bethanechol Chloride 25 Mg Tablet) 50 mg PO BID [facility] Last Admin: 08/29/23 08:51 Dose: 50 mg Documented By: COURTNEY Bisacodyl (Bisacodyl 10 Mg Supp.Rect) 10 mg [place] DAILY PRN PRN Reason: Constipation Diazepam (Diazepam 2 Mg Tablet) 3 mg PO BID [facility] Last Admin: 08/29/23 08:52 Dose: 3 mg Documented By: COURTNEY Docusate Sodium (Docusate Sodium 100 Mg Capsule) 100 mg PO DAILY PRN PRN Reason: Constipation Doxazosin Mesylate (Doxazosin Mesylate 2 Mg Tablet) 4 mg PO BEDTIME [facility] Last Admin: 08/28/23 21:52 Dose: 4 mg Documented By: NADJA Enoxaparin Sodium (Enoxaparin Sodium 30 Mg/0.3 Ml Syringe) 30 mg SUBCUT Q24H [facility] Dextrose (D5w) 1,000 mls @ 150 mls/hr IVCONT .Q6H40M [facility] Last Admin: 08/29/23 09:58 Dose: 150 mls/hr Documented By: COURTNEY Piperacillin Sod/Tazobactam (Sod 3.375 gm/ Sodium Chloride) 50 mls @ 100 mls/hr IV Q6H [facility] Last Infusion: 08/29/23 07:25 Dose: Infused Documented By: CINDY Vancomycin HCl 750 mg/ Sodium (Chloride) 265 mls @ 265 mls/hr IV Q24H [facility] Lactulose (Lactulose 20 Gm/30 Ml Solution) 10 gm PO BID [facility] Last Admin: 08/29/23 08:52 Dose: 10 gm Documented By: COURTNEY Levothyroxine Sodium (Levothyroxine Sodium 112 Mcg Tablet) 112 mcg PO DAILY@0600 [facility] Last Admin: 08/29/23 06:28 Dose: Not Given Documented By: CINDY Non-Admin Reason: Patient Refused Melatonin (Melatonin 3 Mg Tablet) 6 mg PO BEDTIME PRN PRN Reason: Insomnia Midodrine (Midodrine Hcl 5 Mg Tablet) 5 mg PO TID [facility] Last Admin: 08/29/23 10:50 Dose: 5 mg Documented By: COURTNEY Nicotine (Nicotine 7 Mg Patch.Td24) 7 mg TRANSDERMA DAILY PRN PRN Reason: Smoking Cessation Ondansetron HCl (Ondansetron Hcl 4 Mg/2 Ml Vial) 4 mg IVPUSH Q8H PRN PRN Reason: Nausea and Vomiting Perphenazine (Perphenazine 8 Mg Tablet) 8 mg PO BID [facility] Last Admin: 08/29/23 08:51 Dose: 8 mg Documented By: COURTNEY Pharmacy Consult (Consult Rx Vancomycin Dosing) 1 each MISCELLANE DAILY PRN PRN Reason: Consult order Propranolol HCl (Propranolol Hcl 10 Mg Tablet) 10 mg PO BID [facility]; Protocol Last Admin: 08/29/23 08:52 Dose: Not Given Documented By: COURTNEY Non-Admin Reason: low BP Senna (Sennosides 8.6 Mg Tablet) 17.2 mg PO DAILY PRN PRN Reason: Constipation Sodium Biphosphate/Sodium Phosphate (Sodium Phosphate,[place]-Dibasic 133 Ml Enema) 118 ml [place] DAILY PRN PRN Reason: Constipation Sodium Chloride (0.9 % Sodium Chloride Flush 3 Ml Syringe) 3 ml IVFLUSH QSHIFT [facility] Last Admin: 08/29/23 07:39 Dose: Not Given Documented By: COURTNEY Non-Admin Reason: IV Running Labs 08/28/23 11:53 08/29/23 10:00 Labs: Laboratory Results - last 24 hr 08/28/23 08/28/23 08/28/23 11:53 12:41 14:20 MCV 88.1 MCH 26.5 L MCHC 30.1 L RDW 15.4 Plt Count 262 D MPV 10.6 Immature Gran % (Auto) 0.4 Neut % (Auto) 79.1 H Lymph % (Auto) 12.1 L [place] % (Auto) 7.9 Eos % (Auto) 0.1 Baso % (Auto) 0.4 Lymph # (Auto) 1.4 [place] # (Auto) 0.9 Eos # (Auto) 0.0 Baso # (Auto) 0.1 Abs Immat Gran (auto) 0.04 H Absolute Neuts (auto) 8.9 H Absolute Nucleated RBC 0.000 Nucleated RBC % (auto) 0.0 PT 12.4 INR 1.0 VBG pH VBG pCO2 VBG pO2 VBG HCO3 VBG O2 Saturation VBG Base Excess Anion Gap 18 Estim Creat Clear Calc 30.0 Estimated GFR 47 Random Glucose 80 Osmolality Lactic Acid 1.8 Calcium 9.9 D Total Bilirubin 0.3 AST 26 ALT 18 Alkaline Phosphatase 130 H Ammonia Total Protein 7.6 Albumin 3.7 Urine Color Dark Yellow Urine Appearance Turbid Urine pH 7.5 Ur Specific [place] 1.020 Urine Protein 300 (3+) H Urine Glucose (UA) Negative Urine Ketones Trace Urine Blood Large (3+) H Urine Nitrite Negative Ur Leukocyte Esterase Large (3+) H Urine RBC >20 H Urine WBC >50 H Ur Squamous Epith Cells 6-10 Other Crystals Present Urine Bacteria 4+ Hyaline Casts 3-5 Urine Osmolality 543 08/28/23 08/28/23 08/28/23 14:41 17:08 20:38 MCV MCH MCHC RDW Plt Count MPV Immature Gran % (Auto) Neut % (Auto) Lymph % (Auto) [place] % (Auto) Eos % (Auto) Baso % (Auto) Lymph # (Auto) [place] # (Auto) Eos # (Auto) Baso # (Auto) Abs Immat Gran (auto) Absolute Neuts (auto) Absolute Nucleated RBC Nucleated RBC % (auto) PT INR VBG pH 7.47 H VBG pCO2 35 VBG pO2 181 VBG HCO3 26 VBG O2 Saturation Not Reportable VBG Base Excess 2.9 Anion Gap 13 Estim Creat Clear Calc 35.5 Estimated GFR 57 Random Glucose 124 H Osmolality 349 H Lactic Acid Calcium 8.9 D Total Bilirubin AST ALT Alkaline Phosphatase Ammonia 23 Total Protein Albumin Urine Color Urine Appearance Urine pH Ur Specific [place] Urine Protein Urine Glucose (UA) Urine Ketones Urine Blood Urine Nitrite Ur Leukocyte Esterase Urine RBC Urine WBC Ur Squamous Epith Cells Other Crystals Urine Bacteria Hyaline Casts Urine Osmolality 08/29/23 08/29/23 06:00 10:00 MCV MCH MCHC RDW Plt Count MPV Immature Gran % (Auto) Neut % (Auto) Lymph % (Auto) [place] % (Auto) Eos % (Auto) Baso % (Auto) Lymph # (Auto) [place] # (Auto) Eos # (Auto) Baso # (Auto) Abs Immat Gran (auto) Absolute Neuts (auto) Absolute Nucleated RBC Nucleated RBC % (auto) PT INR VBG pH VBG pCO2 VBG pO2 VBG HCO3 VBG O2 Saturation VBG Base Excess Anion Gap 12 13 Estim Creat Clear Calc 28.3 28.8 Estimated GFR 44 45 Random Glucose 135 H 164 H Osmolality Lactic Acid Calcium 8.5 8.5 Total Bilirubin AST ALT Alkaline Phosphatase Ammonia Total Protein Albumin Urine Color Urine Appearance Urine pH Ur Specific [place] Urine Protein Urine Glucose (UA) Urine Ketones Urine Blood Urine Nitrite Ur Leukocyte Esterase Urine RBC Urine WBC Ur Squamous Epith Cells Other Crystals Urine Bacteria Hyaline Casts Urine Osmolality Assessment and Plan (1) KELLY (acute kidney injury): Status: Acute (2) Hypernatremia: Status: Acute (3) Acute UTI: Status: Acute (4) Encephalopathy: Status: Acute (5) Swallowing problem: Status: Acute Plan Pt is a 73-year-old male with a PMH significant for?TBI, AAA s/p elective repair, COPD on prn home O2, hypothyroidism, HTN, HLD, BPH, and paranoid schizophrenia who presents [facility] the ED from [facility] for evaluation of generalized weakness with frequent falls. Acute Hypernatremia sodium 155 now D5W at 150 mL/hr to replace free water Nephrology following Nephrology recommends thiazide diuretic if needed Follow sodium Hypotension secondary to dehydration and decrease PO intake not due to sepsis Give boluses and Albumin monitor BP UTI UA positive for UTI covered by Zosyn, started 08/28/2023 Acute on chronic hypoxic respiratory failure secondary to aspiration pneumonia Zosyn, started 08/28/2023 Aspiration precautions Titrate supplemental O2 >92, wean as tolerated KELLY Creatinine 1.5 IVF Follow BMP Hypothermia improved Continue Nancy Lazcano Follow temp Diet/Protein calorie malnutrition Patient with TBI, dysphagia, dysarthria Pureed diet with honey thick liquids Magic cup supplement bid Requires assistance and monitoring with eating COPD Continue home inhalers Will be given DuoNebs Hypothyroidism Continue levothyroxine Hx of TBI, paranoid schizophrenia Continue home meds Full Code DVT Prophylaxis: Lovenox Pt will require a hospitalization of overnight for treatment of?KELLY, UTI, and hyponatremia. Given patient's many significant comorbidities, patient required hospitalized care for treatment with IV antibiotics, IV hypotonic fluid, close monitoring of labs, and specialist consultation. Quality Stroke Does the patient have a stroke diagnosis?: No VTE Prior VTE?: No VTE Risk Level:: Medical - moderate - high VTE Device Contraindication: Treatment Not Indicated VTE Drug Contraindication: N/A - Med Ordered
--- NOTE | 2023-08-29 11:50 | MHC.CM.PN ---
CM was informed that Patient's Daughter was asking to speak with CM. Upon entering Patient's room, there are no visitors. CM checked for contact information, but there is no Daughter listed.
[2023-08-29] MEDS: Albumin Human 25 % 100 ML IV ×2 (12:08→13:11)
[2023-08-29 14:20] LABS: Anion Gap 11 (12-20); Blood Urea Nitrogen 41 mg/dL (9-16); Calcium 8.6 mg/dL (8.4-10.2); Carbon Dioxide 24 mmol/L (22-29); Chloride 118 mmol/L (96-108); Creatinine Clr Calc Pharmacy 39.7; Estimated Glomerular Filt Rate 58; Glucose Random 118 mg/dL (60-115); Potassium 3.4 mmol/L (3.3-5.1); Sodium 150 mmol/L (135-145)
[2023-08-29 14:48] LABS: Adenovirus PCR Not Detected (Not Detect.); Bordetella parapertussis PCR Not Detected (Not Detect.); Bordetella pertussis PCR Not Detected (Not Detect.); Chlamydia pneumoniae PCR Not Detected (Not Detect.); Coronavirus 229E PCR Not Detected (Not Detect.); Coronavirus HKU1 PCR Not Detected (Not Detect.); Coronavirus NL63 PCR Not Detected (Not Detect.); Coronavirus OC43 PCR Not Detected (Not Detect.); Human metapneumovirus PCR Not Detected (Not Detect.); Influenza A PCR Not Detected (Not Detect.); Influenza B PCR Not Detected (Not Detect.); Mycoplasma pneumoniae PCR Not Detected (Not Detect.); Parainfluenza 1 PCR Not Detected (Not Detect.); Parainfluenza 2 PCR Not Detected (Not Detect.); Parainfluenza 3 PCR Not Detected (Not Detect.); Parainfluenza 4 PCR Not Detected (Not Detect.); RSV PCR Not Detected (Not Detect.); Rhino/Enterovirus PCR Not Detected (Not Detect.)
[2023-08-29 15:19] LABS: SARS-CoV-2 PCR Not Detected (Not Detect.)
[2023-08-29] MEDS: Enoxaparin Sodium 30 MG/0.3 ML SYRINGE SUBCUT (16:53)
[2023-08-29 18:46] LABS: Anion Gap 12 (12-20); Blood Urea Nitrogen 38 mg/dL (9-16); Calcium 8.7 mg/dL (8.4-10.2); Carbon Dioxide 25 mmol/L (22-29); Chloride 116 mmol/L (96-108); Creatinine Clr Calc Pharmacy 42.8; Estimated Glomerular Filt Rate > 60; Glucose Random 100 mg/dL (60-115); Potassium 3.5 mmol/L (3.3-5.1); Sodium 149 mmol/L (135-145)
[2023-08-29] MEDS: Acetaminophen 325 MG TABLET 650 MG PO (18:46)
[2023-08-29] MEDS: Atorvastatin Calcium 20 MG TABLET PO (20:15)
[2023-08-29] MEDS: 0.9 % Sodium Chloride 500 ML IV (20:30)
[2023-08-29 22:23] LABS: Anion Gap 10 (12-20); Blood Urea Nitrogen 35 mg/dL (9-16); Calcium 8.3 mg/dL (8.4-10.2); Carbon Dioxide 24 mmol/L (22-29); Chloride 115 mmol/L (96-108); Creatinine Clr Calc Pharmacy 37.2; Estimated Glomerular Filt Rate 54; Glucose Random 127 mg/dL (60-115); Potassium 3.1 mmol/L (3.3-5.1); Sodium 146 mmol/L (135-145)
[2023-08-29] MEDS: Albuterol/Iprat 2.5/0.5MG 3 ML AMPUL.NEB INHALE (23:06)
[2023-08-29 23:39] LABS: Glucose, Whole Blood 123 mg/dL (60-115)
[2023-08-29] MEDS: 0.9 % Sodium Chloride 1,000 ML 999 ML IV (23:40)
[2023-08-29] MEDS: Norepinephrine Bitartrate/D5W 8 MG/250 ML PLAST..BAG 6.89 MG IV (23:43)
[2023-08-30] VITALS (36 sets, daily range): BP systolic 90–134; BP diastolic 51–86; PULSE 46–84; RESP 12–19; TEMP 35.2–36.7; O2SAT 92–99
--- NOTE | 2023-08-30 | ECG_ITS ---
Test Reason : BRADYCARDIA Blood Pressure : / mmHG Vent. Rate : 065 BPM Atrial Rate : 065 BPM P-R Int : 162 ms QRS Dur : 086 ms QT Int : 414 ms P-R-T Axes : 083 060 059 degrees QTc Int : 430 ms Normal sinus rhythm Normal ECG When compared with ECG of 14-JUL-2023 13:18, ST no longer elevated in Inferior leads Referred By: Franklin Hancock Electronically Signed By:Franklin Hancock
[2023-08-30] MEDS: DOPamine HCL/D5W 400 MG/250 ML PLAST..BAG 9.84 MG IVCONT (00:13)
--- NOTE | 2023-08-30 00:18 | W.PM.CCCN ---
Documented by User: Lawson Romero NP 08/30/23 01:08 History of Present Illness Data of Consult Service Date: 08/30/23 Requesting physician: Broderick Rosado Primary Care Provider: Jeffrey Delatorre DO HPI Reason for consult: Hypotension Patient is a 73-year-old male from a skilled[facility] facility ([facility]) with a past medical history of traumatic brain injury,? dysphagia, COPD, hypothyroidism, hypertension, hyperlipidemia, BPH, AAA s/p? repair,? and paranoid schizophrenia presented to the emergency department on 08/28/2023? post fall with head strike and weakness.? Patient was noted to be hypernatremic? and UA positive for UTI,? he was started on Zosyn and D5W and admitted to hospital medicine.? ? Tonight, ? rapid response? was called due to worsening hypotension and bradycardia.? Nurse also report possible aspiration with meds earlier during the night. Patient blood pressure 70/50 despite 1L bolus.? ?Patient transferred to ICU? for hypotension requiring vasopressors Review of Systems Review of Systems: Yes Unobtainable due to mental status PMFSH Past Medical History Medical History COVID-19 vaccine series completed History of COVID-19 Resides in [facility] facility History of falling Personal history of traumatic brain injury Other specified intracranial injury without loss of consciousness, subsequent encounter Paralytic gait Benign prostatic hyperplasia without lower urinary tract symptoms Pain in left hip Primary generalized (osteo)arthritis Constipation, unspecified Impulse disorder, unspecified Trichotillomania Alcohol dependence, uncomplicated Hyperlipidemia, unspecified Hypothyroidism, unspecified Weakness Unspecified lack of coordination Muscle weakness (generalized) Age-related nuclear cataract, bilateral Unspecified abnormalities of gait and mobility Personal history of COVID-19 Repeated falls Lefort i fracture, initial encounter for closed fracture Unsteadiness on feet Other abnormalities of gait and mobility Dysphagia, oropharyngeal phase Paranoid schizophrenia Family History Family History Unknown No problems noted. Surgical History Surgical History History of facial surgery Social History Social History Household Members: None Housing: Care Home Housing Other:: [facility] Are you a primary care support representative to a significant other at home: No Do you presently have visiting nurse or other home services: No Unable to assess alcohol history related to: Unknown Comment: madi Patient Tobacco Use Status: Tobacco use Unknown Tobacco use type: Cigarette Cigarettes Per Day: 4 Years Smoked: 57 Advance Directives Date on File: 12/05/22 service: No Current occupational status: disabled Meds Allergies Allergy/AdvReac Type Severity Reaction Status Date / Time cefpodoxime Allergy Intermediate Rash Verified 08/28/23 11:32 Active Medications: Current Medications Acetaminophen (Acetaminophen 325 Mg Tablet) 650 mg PO Q6H PRN PRN Reason: Pain, Mild (Pain Scale 1-3) Last Admin: 08/29/23 18:46 Dose: 650 mg Albuterol/Ipratropium (Albuterol/Iprat 2.5/0.5mg 3 Ml Ampul.Neb) 3 ml INHALE RQ4H WHILE AWAKE PRN PRN Reason: Congestion Last Admin: 08/29/23 23:06 Dose: 3 ml Artificial Tears (Artificial Tears 15 Ml Drops) 1 drop EYE-BOTH QID PRN PRN Reason: Dry Eyes Atorvastatin Calcium (Atorvastatin Calcium 20 Mg Tablet) 20 mg PO BEDTIME [facility] Last Admin: 08/29/23 20:15 Dose: 20 mg Bethanechol Chloride (Bethanechol Chloride 25 Mg Tablet) 50 mg PO BID [facility] Last Admin: 08/29/23 20:44 Dose: Not Given Bisacodyl (Bisacodyl 10 Mg Supp.Rect) 10 mg NC DAILY PRN PRN Reason: Constipation Diazepam (Diazepam 2 Mg Tablet) 3 mg PO BID [facility] Last Admin: 08/29/23 20:45 Dose: Not Given Docusate Sodium (Docusate Sodium 100 Mg Capsule) 100 mg PO DAILY PRN PRN Reason: Constipation Doxazosin Mesylate (Doxazosin Mesylate 2 Mg Tablet) 4 mg PO BEDTIME [facility] Last Admin: 08/29/23 20:44 Dose: Not Given Enoxaparin Sodium (Enoxaparin Sodium 30 Mg/0.3 Ml Syringe) 30 mg SUBCUT Q24H [facility] Last Admin: 08/29/23 16:53 Dose: 30 mg Piperacillin Sod/Tazobactam (Sod 3.375 gm/ Sodium Chloride) 50 mls @ 100 mls/hr IV Q6H [facility] Last Infusion: 08/29/23 18:41 Dose: Infused Vancomycin HCl 750 mg/ Sodium (Chloride) 265 mls @ 265 mls/hr IV Q24H [facility] Sodium Chloride (Ns) 1,000 mls @ 999 mls/hr IV .Q1H1M [facility] Stop: 08/30/23 00:45 Last Admin: 08/29/23 23:40 Dose: 999 mls/hr Norepinephrine Bitartrate (Levophed) 8 mg in 250 mls @ 0 mls/hr IV .Q0M [facility]; Protocol Last Admin: 08/29/23 23:43 Dose: 0.07 mcg/kg/min, 6.89 mls/hr Dopamine HCl/Dextrose (Dopamine Hcl/D5w) 400 mg in 250 mls @ 0 mls/hr IVCONT .Q0M [facility]; Protocol Last Admin: 08/30/23 00:13 Dose: 5 mcg/kg/min, 9.84 mls/hr Lactulose (Lactulose 20 Gm/30 Ml Solution) 10 gm PO BID [facility] Last Admin: 08/29/23 20:15 Dose: 10 gm Levothyroxine Sodium (Levothyroxine Sodium 112 Mcg Tablet) 112 mcg PO DAILY@0600 [facility] Last Admin: 08/29/23 06:28 Dose: Not Given Melatonin (Melatonin 3 Mg Tablet) 6 mg PO BEDTIME PRN PRN Reason: Insomnia Midodrine (Midodrine Hcl 5 Mg Tablet) 5 mg PO TID [facility] Last Admin: 08/29/23 20:15 Dose: 5 mg Nicotine (Nicotine 7 Mg Patch.Td24) 7 mg TRANSDERMA DAILY PRN PRN Reason: Smoking Cessation Ondansetron HCl (Ondansetron Hcl 4 Mg/2 Ml Vial) 4 mg IVPUSH Q8H PRN PRN Reason: Nausea and Vomiting Perphenazine (Perphenazine 8 Mg Tablet) 8 mg PO BID [facility] Last Admin: 08/29/23 20:16 Dose: 8 mg Pharmacy Consult (Consult Rx Vancomycin Dosing) 1 each MISCELLANE DAILY PRN PRN Reason: Consult order Propranolol HCl (Propranolol Hcl 10 Mg Tablet) 10 mg PO BID [facility]; Protocol Last Admin: 08/29/23 20:44 Dose: Not Given Senna (Sennosides 8.6 Mg Tablet) 17.2 mg PO DAILY PRN PRN Reason: Constipation Sodium Biphosphate/Sodium Phosphate (Sodium Phosphate,Daggett-Dibasic 133 Ml Enema) 118 ml NC DAILY PRN PRN Reason: Constipation Sodium Chloride (0.9 % Sodium Chloride Flush 3 Ml Syringe) 3 ml IVFLUSH [facility] Last Admin: 08/29/23 14:49 Dose: Not Given Home Medications Medication Instructions Recorded Confirmed Last Taken Type acetaminophen 325 mg capsule 650 mg PO Q6H PRN Pain 09/20/22 08/28/23 Unknown History bisacodyl 10 mg rectal suppository 10 mg NC DAILY PRN Constipation 09/20/22 08/28/23 Unknown History (Dulcolax (bisacodyl)) diazepam 2 mg tablet 3 mg PO BID Anxiety 09/20/22 08/28/23 Unknown History sodium phosphates 19 gram-7 118 ml NC DAILY PRN Constipation 09/20/22 08/28/23 Unknown History gram/118 mL enema (Fleet Enema) lactulose 10 gram/15 mL oral 15 ml PO BID 09/26/22 08/28/23 Unknown History solution levothyroxine 112 mcg tablet 112 mcg PO DAILY 09/26/22 08/28/23 Unknown History perphenazine 4 mg tablet 8 mg PO BID 09/26/22 08/28/23 Unknown History propranolol 10 mg tablet 10 mg PO BID 09/26/22 08/28/23 Unknown History simvastatin 40 mg tablet 40 mg PO BEDTIME 09/26/22 08/28/23 Unknown History nicotine 7 mg/24 hr daily 1 patch transdermal Q24H PRN 12/05/22 08/28/23 Unknown History transdermal patch Smoking Cessation polyvinyl alcohol 1.4 % eye drops 1 drp ophthalmic (eye) TID-QID PRN 12/05/22 08/28/23 Unknown History (Artificial Tears (polyvinyl Dry Eyes alcohol)) sennosides 8.6 mg tablet (senna) 17.2 mg PO DAILY PRN Constipation 12/05/22 08/28/23 Unknown History Physical Exam Vital Signs: Vital Signs: Last Vital Signs Temp 94.8 F L 08/29/23 23:18 Pulse 54 08/30/23 00:13 Resp 12 08/29/23 23:47 BP 100/67 08/30/23 00:13 Pulse Ox 96 08/29/23 23:18 O2 Del Method Nasal Cannula 08/29/23 23:18 O2 Flow Rate 2 08/29/23 23:18 Oxygen Flow Rate 4 08/28/23 11:32 BMI result Body Mass Index 19.3 Constitutional: Alert, cachectic, frail looking, in no acute distress. Mental Status: Oriented to person only, not to place, time, or situation. Eyes: Pupils are equal, round, and reactive to light. Ear, Nose, and Throat: Oropharynx clear, mucous membranes moist. Ears and nose without deformities. Trachea midline. Respiratory: Rhonchi throughout, no wheezing. Cardiovascular: Sinus bradycardia. S1, S2 regular. No murmurs, rubs, or gallops. Gastrointestinal: Abdomen soft, non-tender, non-distended. Normal bowel sounds. Neurologic: No focal neurological deficits. Moves all extremities spontaneously. Skin: Warm, dry. Musculoskeletal: No cyanosis or clubbing. Extremities: No edema. Psychiatric: Normal mood and affect. Results Labs 08/30/23 05:14 08/30/23 05:14 Labs: BMP 08/29/23 08/29/23 08/29/23 06:00 10:00 13:52 Sodium 155 H 153 H 150 H Potassium 3.4 3.6 3.4 Chloride 124 H 121 H 118 H Carbon Dioxide 22 23 24 BUN 45 H 43 H 41 H Creatinine 1.57 H 1.54 H 1.23 Calcium 8.5 8.5 8.6 08/29/23 08/29/23 18:18 22:01 Sodium 149 H 146 H Potassium 3.5 3.1 L Chloride 116 H 115 H Carbon Dioxide 25 24 BUN 38 H 35 H Creatinine 1.14 1.31 Calcium 8.7 8.3 L Microbiology Microbiology Results: Microbiology 08/28/23 12:41 Blood - Venous Blood Culture - Preliminary No growth after 24 hours. 08/28/23 11:53 Blood - Venous Blood Culture - Preliminary No growth after 24 hours. 08/28/23 Unknown Urine clean catch - Urine valdes top Urine Culture - Final Assessment and Plan (1) Severe sepsis: Status: Acute (2) Hypotension: Status: Acute (3) Bradycardia: Status: Acute (4) Acute UTI: Status: Acute (5) Aspiration into airway: Status: Acute (6) Dysphagia: Status: Acute (7) KELLY (acute kidney injury): Status: Acute (8) Hypernatremia: Status: Acute Plan 73-year-old male? with a past medical history of traumatic brain injury,? dysphagia, COPD, hypothyroidism, hypertension, hyperlipidemia, BPH, AAA s/p? repair,? and paranoid schizophrenia admitted to ICU for hypotension? Neuro:? Altered mental status- ? patient alert times self only,? seems to be baseline.? Cardiac:?? ?Severe sepsis-? no evidence of septic shock,? lactic is 1.1.? Patient had evidence of acute aspiration in chest xray and does have a UTI. ? patient was on Zosyn,? will Broaden coverage with vanco.?? ?hypotension/? bradycardia-? from severe sepsis,? patient received a 1L bolus on the floor.? No evidence of severe septic shock.? Due to bradycardia was switched to Levophed to dopamine. Wean off pressors as tolerated? Pulmonary:? ?Acute aspiration- ? patient had? witnessed aspiration,? confirmed with chest x-ray. ? He is requiring supplemental oxygenation.? Wean off O2 as tolerated,? continue antibiotics,? Renal:?? KELLY- most likely related to hypoperfusion. ? 1L in the floor. Will add albumin.? Continue to check renal induces and urine output ?Hypernatremia-? patient initially admitted with sodium of 160, now 174, will stop D5W and monitor for neurological changes. Cont frequent neuro assessment.? Endo:? No acute issues.?? GI:? ? no acute issues ID:?? Severe sepsis from UTI and now possible aspiration. ? Blood cultures are pending.? Urine cultures are pending.? Will continue Zosyn, will add empiric vancomycin. Heme/Onc:?No acute issues Psych:? No acute issues. Miscellaneous:? No acute issues? Prophylaxis: Lovenox? ?Critical care time:? X 60 minutes of critical care time ?Code? status:? FULL code, Patient has a legal guardian? ?Case discussed with attending Dr Sheriff Documented by User: Joaquin Sheriff MD 08/30/23 09:14 [facility] Past Medical History Medical History COVID-19 vaccine series completed History of COVID-19 Resides in [facility] facility History of falling Personal history of traumatic brain injury Other specified intracranial injury without loss of consciousness, subsequent encounter Paralytic gait Benign prostatic hyperplasia without lower urinary tract symptoms Pain in left hip Primary generalized (osteo)arthritis Constipation, unspecified Impulse disorder, unspecified Trichotillomania Alcohol dependence, uncomplicated Hyperlipidemia, unspecified Hypothyroidism, unspecified Weakness Unspecified lack of coordination Muscle weakness (generalized) Age-related nuclear cataract, bilateral Unspecified abnormalities of gait and mobility Personal history of COVID-19 Repeated falls Lefort i fracture, initial encounter for closed fracture Unsteadiness on feet Other abnormalities of gait and mobility Dysphagia, oropharyngeal phase Paranoid schizophrenia Family History Family History Unknown No problems noted. Surgical History Surgical History History of facial surgery Social History Social History Household Members: None Housing: Care Home Housing Other:: [facility] Are you a primary care support representative to a significant other at home: No Do you presently have visiting nurse or other home services: No Unable to assess alcohol history related to: Unknown Comment: sitter Patient Tobacco Use Status: Tobacco use Unknown Tobacco use type: Cigarette Cigarettes Per Day: 4 Years Smoked: 57 Advance Directives Date on File: 12/05/22 service: No Current occupational status: disabled Meds Allergies Allergy/AdvReac Type Severity Reaction Status Date / Time cefpodoxime Allergy Intermediate Rash Verified 08/28/23 11:32 Home Medications Medication Instructions Recorded Confirmed Last Taken Type acetaminophen 325 mg capsule 650 mg PO Q6H PRN Pain 09/20/22 08/28/23 Unknown History bisacodyl 10 mg rectal suppository 10 mg NC DAILY PRN Constipation 09/20/22 08/28/23 Unknown History (Dulcolax (bisacodyl)) diazepam 2 mg tablet 3 mg PO BID Anxiety 09/20/22 08/28/23 Unknown History sodium phosphates 19 gram-7 118 ml NC DAILY PRN Constipation 09/20/22 08/28/23 Unknown History gram/118 mL enema (Fleet Enema) lactulose 10 gram/15 mL oral 15 ml PO BID 09/26/22 08/28/23 Unknown History solution levothyroxine 112 mcg tablet 112 mcg PO DAILY 09/26/22 08/28/23 Unknown History perphenazine 4 mg tablet 8 mg PO BID 09/26/22 08/28/23 Unknown History propranolol 10 mg tablet 10 mg PO BID 09/26/22 08/28/23 Unknown History simvastatin 40 mg tablet 40 mg PO BEDTIME 09/26/22 08/28/23 Unknown History nicotine 7 mg/24 hr daily 1 patch transdermal Q24H PRN 12/05/22 08/28/23 Unknown History transdermal patch Smoking Cessation polyvinyl alcohol 1.4 % eye drops 1 drp ophthalmic (eye) TID-QID PRN 12/05/22 08/28/23 Unknown History (Artificial Tears (polyvinyl Dry Eyes alcohol)) sennosides 8.6 mg tablet (senna) 17.2 mg PO DAILY PRN Constipation 12/05/22 08/28/23 Unknown History Results Labs 08/30/23 05:14 08/30/23 05:14 Assessment and Plan (1) Severe sepsis: Status: Acute (2) Hypotension: Status: Acute (3) Bradycardia: Status: Acute (4) Acute UTI: Status: Acute (5) Aspiration into airway: Status: Acute (6) Dysphagia: Status: Acute (7) KELLY (acute kidney injury): Status: Acute (8) Hypernatremia: Status: Acute Plan 73-year-old male? with a past medical history of traumatic brain injury,? dysphagia, COPD, hypothyroidism, hypertension, hyperlipidemia, BPH, AAA s/p? repair,? and paranoid schizophrenia admitted to ICU for hypotension? Neuro:? Altered mental status- ? patient alert times self only,? seems to be baseline.? Cardiac:?? ?Severe sepsis-? no evidence of septic shock,? lactic is 1.1.? Patient had evidence of acute aspiration in chest xray and does have a UTI. ? patient was on Zosyn,? will Broaden coverage with vanco.?? ?hypotension/? bradycardia-? from severe sepsis,? patient received a 1L bolus on the floor.? No evidence of severe septic shock.? Due to bradycardia was switched to Levophed to dopamine. Wean off pressors as tolerated? Pulmonary:? ?Acute aspiration- ? patient had? witnessed aspiration,? confirmed with chest x-ray. ? He is requiring supplemental oxygenation.? Wean off O2 as tolerated,? continue antibiotics,? Renal:?? KELLY- most likely related to hypoperfusion. ? 1L in the floor. Will add albumin.? Continue to check renal induces and urine output ?Hypernatremia-? patient initially admitted with sodium of 160, now 174, will stop D5W and monitor for neurological changes. Cont frequent neuro assessment.? Endo:? No acute issues.?? GI:? ? no acute issues ID:?? Severe sepsis from UTI and now possible aspiration. ? Blood cultures are pending.? Urine cultures are pending.? Will continue Zosyn, will add empiric vancomycin. Heme/Onc:?No acute issues Psych:? No acute issues. Miscellaneous:? No acute issues? Prophylaxis: Lovenox? ?Critical care time:? X 60 minutes of critical care time ?Code? status:? FULL code, Patient has a legal guardian? ?Case discussed with attending Dr Sheriff Document type should be changed to progress note.
[2023-08-30 00:28] LABS: Hematocrit 30.6 % (42.0-52.0); Hemoglobin 9.2 g/dl (14.0-18.0); Mean Corpuscular HGB Conc 30.1 g/dl (31.0-36.0); Mean Corpuscular Hemoglobin 26.4 pg (27.0-33.0); Mean Corpuscular Volume 87.7 fL (80.0-98.0); Mean Platelet Volume 9.4 fL (9.4-12.4); Platelet Count 108 X10*3/uL (160-400); Red Blood Count 3.49 X10*6/uL (4.60-5.80); Red Cell Distribution Width 15.6 % (11.0-16.0); White Blood Count 5.6 X10*3/uL (4.8-10.8)
[2023-08-30 00:28] LABS: VBG Base Excess 1.2 mmol/L; VBG HCO3 25 mmol/L (22-26); VBG pCO2 37 mmHg; VBG pH 7.43 (7.32-7.43); VBG pO2 49 mmHg
[2023-08-30 00:30] LABS: Venous Blood Gas Refer to POC result
[2023-08-30 00:37] LABS: Lactic Acid 1.1 mmol/L (0.5-2.0)
[2023-08-30 00:42] LABS: Alanine Aminotransferase 22 U/L (0-40); Albumin Level 3.1 g/dL (3.5-5.0); Alkaline Phosphatase 78 U/L (39-117); Anion Gap 10 (12-20); Aspartate Amino Transferase 30 U/L (5-37); Bilirubin Total 0.6 mg/dL (0.0-1.0); Blood Urea Nitrogen 35 mg/dL (9-16); Calcium 8.5 mg/dL (8.4-10.2); Carbon Dioxide 23 mmol/L (22-29); Chloride 117 mmol/L (96-108); Creatinine Clr Calc Pharmacy 42.4; Estimated Glomerular Filt Rate > 60; Glucose Random 87 mg/dL (60-115); Potassium 3.2 mmol/L (3.3-5.1); Sodium 147 mmol/L (135-145); Total Protein 5.2 g/dL (6.5-8.0)
[2023-08-30 00:47] LABS: B Type Natriuretic Peptide 234 pg/mL (<100)
[2023-08-30] MEDS: 0.9 % Sodium Chloride Flush 3 ML SYRINGE IVFLUSH ×3 (00:47→16:39)
[2023-08-30 01:10] LABS: Magnesium 2.2 mg/dL (1.6-2.6); Phosphorus 2.8 mg/dL (2.7-4.5)
[2023-08-30] MEDS: vancomycin HCL 750 MG in 0.9 % Sodium Chloride 250 ML 265 MG IV (01:36)
[2023-08-30] MEDS: Piperacillin Sodium/Tazobactam 3.375 GM in 0.9 % Sodium Chloride 50 ML IV ×4 (01:36→17:56)
[2023-08-30] MEDS: Potassium Phosphate/NS 15 MMOL/250 ML PLAST..BAG 62.5 MMOL IV (02:00)
[2023-08-30] MEDS: Albumin Human 25 % 100 ML IV ×4 (02:03→17:55)
[2023-08-30 05:23] LABS: VBG Base Excess 2.4 mmol/L; VBG HCO3 28 mmol/L (22-26); VBG pCO2 49 mmHg; VBG pH 7.36 (7.32-7.43); VBG pO2 108 mmHg
[2023-08-30 05:25] LABS: Venous Blood Gas Refer to POC result
[2023-08-30 05:28] LABS: Hematocrit 33.5 % (42.0-52.0); Hemoglobin 9.9 g/dl (14.0-18.0); Mean Corpuscular HGB Conc 29.6 g/dl (31.0-36.0); Mean Corpuscular Volume 87.9 fL (80.0-98.0); Mean Platelet Volume 9.5 fL (9.4-12.4); Platelet Count 128 X10*3/uL (160-400); Red Blood Count 3.81 X10*6/uL (4.60-5.80); Red Cell Distribution Width 15.4 % (11.0-16.0); White Blood Count 7.6 X10*3/uL (4.8-10.8)
[2023-08-30 05:45] LABS: Albumin Level 3.7 g/dL (3.5-5.0); Anion Gap 15 (12-20); Blood Urea Nitrogen 29 mg/dL (9-16); Carbon Dioxide 25 mmol/L (22-29); Chloride 122 mmol/L (96-108); Creatinine Clr Calc Pharmacy 38.1; Estimated Glomerular Filt Rate 55; Glucose Random 100 mg/dL (60-115); Magnesium 2.4 mg/dL (1.6-2.6); Phosphorus 4.2 mg/dL (2.7-4.5); Potassium 3.9 mmol/L (3.3-5.1); Sodium 158 mmol/L (135-145)
[2023-08-30] MEDS: Dextrose 5 % 1,000 ML 100 ML IVCONT ×2 (06:30→16:39)
--- NOTE | 2023-08-30 07:57 | P.CDIM_ITS ---
PROVIDER RESPONSE TEXT: To clarify, the appropriate diagnosis supported by the clinical indicators: Toxic metabolic QUERY TEXT: PHYSICIAN'S DOCUMENTATION REQUEST Date of Query: 08/29/2023 12:44 PM EST Patient Name: Mariusz Kirkland Admit Date: 08/28/2023 Dear Dale Kay, A review of the medical record indicates additional documentation may be needed. Please review below and update the documentation accordingly. Clinical Indicators: H&P: progressively worsening physical decompensation with frequent falls and head strike. Pt is alert and oriented to self only and is thus incapable of providing accurate HPI. Altered mental status, agitated. mentation improved with treatment. PN: Assessment and plan: Encephalopathy Based on the above, please further specify, in the Progress Notes, the known or suspected type of the documented encephalopathy: Metabolic Toxic Toxic metabolic Due to a specified condition (such as UTI, hyponatremia, CVA, etc.) Other (explain) Clinically unable to determine (explain) Thank you, Eunice Anna, CCS, CDIS Use of terms such as suspected, likely, concern for, or probable (associated with a specific diagnosi s that is being evaluated, monitored, or treated as if it exists) are acceptable and can be coded in the inpatient se tting, when documented at the time of discharge. Please use your independent medical judgment in providing your response. THIS QUERY IS PART OF THE PERMANENT MEDICAL RECORD
--- NOTE | 2023-08-30 07:57 | P.CDIM_ITS ---
PROVIDER RESPONSE TEXT: To clarify, the appropriate diagnosis supported by the clinical indicators: Moderate QUERY TEXT: PHYSICIAN'S DOCUMENTATION REQUEST Date of Query: 08/29/2023 12:48 PM EST Patient Name: Mariusz Kirkland Admit Date: 08/28/2023 Dear Dale Kay, A review of the medical record indicates additional documentation may be needed. Please review below and update the documentation accordingly. Documentation includes the diagnosis of malnutrition. Clinical nutrition notes dated 08/29 - Moderately malnourished with moderately depleted subcutaneous fat and muscle mass with BMI 19.3 Increased nutritional needs Recommend adding magic cup TID with meals to increase KCALS. PN 08/29 - Plan: Diet/protein calorie malnutrition If possible, please provide additional specificity regarding the severity of the malnutrition using t he above information: Mild Moderate Severe Other (explain) Clinically unable to determine (explain) Thank you, Eunice Anna, CCS, CDIS Use of terms such as suspected, likely, concern for, or probable (associated with a specific diagnosi s that is being evaluated, monitored, or treated as if it exists) are acceptable and can be coded in the inpatient se tting, when documented at the time of discharge. Please use your independent medical judgment in providing your response. THIS QUERY IS PART OF THE PERMANENT MEDICAL RECORD
[2023-08-30] MEDS: Furosemide 40 MG/4 ML VIAL IVPUSH (08:40)
--- NOTE | 2023-08-30 10:00 | MHC.CLN ---
Addendum entered by Mitzi Kwan, RAINA 08/30/23 10:02: CORRECTION: PT IS CURRENTLY NPO AND TRANSFERRED TO ICU PO INTAKE 100% PREVIOUS TO CURRENT NPO STATUS WHEN DIET TO ADVANCE, RECOMMEND RESUME PUREED WITH HT LIQ AND ADD MAGIC CUP TID FOLLOW FOR DIET ADVANCEMENT Original Note: F/U PT IS MODERATELY MALNOURISHED SEE FULL CLINICAL NUTRITION ASSESSMENT DATED 08/29/23 PO INTAKE 100% X 1 MEAL DIET RX: PUREED WITH HT LIQ-APPROPRIATE PT RECEIVING MAGIC CUP TID WITH MEALS TO INCREASE KCALS MONITOR PO INTAKE CLOSELY
--- NOTE | 2023-08-30 11:05 | PM.CNCAR ---
History of Present Illness History of Present Illness Date of Service: 08/30/23 Requesting physician: Joaquin Sheriff Chief complaint: Bradycardia Narrative: 73 year gentleman who is currently in the intensive care unit and we have been asked to see him for bradycardia. He apparently was on the floor where he had aspiration with hypotension and bradycardia. He has background history of schizophrenia and traumatic brain injury. He lives in [facility]. He has been on dopamine overnight. Dopamine was stopped when I came to see him. He is denying any symptoms currently. In particular no chest pain or shortness of breath. Doubt that he is a good historian but denying any previous syncopal episodes. FOR[facility]LY [facility], LATER [facility] Past Medical History Medical History COVID-19 vaccine series completed History of COVID-19 Resides in [facility] facility History of falling Personal history of traumatic brain injury Other specified intracranial injury without loss of consciousness, subsequent encounter Paralytic gait Benign prostatic hyperplasia without lower urinary tract symptoms Pain in left hip Primary generalized (osteo)arthritis Constipation, unspecified Impulse disorder, unspecified Trichotillomania Alcohol dependence, uncomplicated Hyperlipidemia, unspecified Hypothyroidism, unspecified Weakness Unspecified lack of coordination Muscle weakness (generalized) Age-related nuclear cataract, bilateral Unspecified abnormalities of gait and mobility Personal history of COVID-19 Repeated falls [place]ef[place] i fracture, initial encounter for closed fracture Unsteadiness on feet Other abnormalities of gait and mobility Dysphagia, oropharyngeal phase Paranoid schizophrenia Family History Family History Unknown No problems noted. Surgical History Surgical History History of facial surgery Social History Social History Household Members: None Housing: [facility] Housing Other:: [facility] Are you a primary laboratory animal care veterinarian to a significant other at home: No Do you presently have visiting nurse or other home services: No Unable to assess alcohol history related to: Unknown Comment: sitter Patient Tobacco Use Status: Tobacco use Unknown Tobacco use type: Cigarette Cigarettes Per Day: 4 Years Smoked: 57 Advance Directives Date on File: 12/05/22 service: No Current occupational status: disabled Meds Allergies Allergy/AdvReac Type Severity Reaction Status Date / Time cefpodoxime Allergy Intermediate Rash Verified 08/28/23 11:32 Active Medications: Current Medications Artificial Tears (Artificial Tears 15 Ml Drops) 1 drop EYE-BOTH QID PRN PRN Reason: Dry Eyes Enoxaparin Sodium (Enoxaparin Sodium 30 Mg/0.3 Ml Syringe) 30 mg SUBCUT Q24H [facility] Last Admin: 08/29/23 16:53 Dose: 30 mg Piperacillin Sod/Tazobactam (Sod 3.375 gm/ Sodium Chloride) 50 mls @ 100 mls/hr IV Q6H [facility] Last Infusion: 08/30/23 07:23 Dose: Infused Vancomycin HCl 750 mg/ Sodium (Chloride) 265 mls @ 265 mls/hr IV Q24H [facility] Last Infusion: 08/30/23 02:39 Dose: Infused Norepinephrine Bitartrate (Levophed) 8 mg in 250 mls @ 0 mls/hr IV .Q0M [facility]; Protocol Last Titration: 08/30/23 01:37 Dose: 0 mcg/kg/min, 0 mls/hr Dopamine HCl/Dextrose (Dopamine Hcl/D5w) 400 mg in 250 mls @ 0 mls/hr IVCONT .Q0M [facility]; Protocol Last Titration: 08/30/23 09:31 Dose: 0 mcg/kg/min, 0 mls/hr Albumin Human (Kedbumin 25 %) 100 mls @ 100 mls/hr IV Q6H [facility] Stop: 08/30/23 20:14 Last Infusion: 08/30/23 07:23 Dose: Infused Dextrose (D5w) 1,000 mls @ 100 mls/hr IVCONT .Q10H [facility] Last Admin: 08/30/23 06:30 Dose: 100 mls/hr Levothyroxine Sodium (Levothyroxine Sodium 112 Mcg Tablet) 112 mcg PO DAILY@0600 [facility] Last Admin: 08/30/23 06:40 Dose: Not Given Ondansetron HCl (Ondansetron Hcl 4 Mg/2 Ml Vial) 4 mg IVPUSH Q8H PRN PRN Reason: Nausea and Vomiting Pharmacy Consult (Consult Rx Vancomycin Dosing) 1 each MISCELLANE DAILY PRN PRN Reason: Consult order Sodium Chloride (0.9 % Sodium Chloride Flush 3 Ml Syringe) 3 ml IVFLUSH QSHIFT [facility] Last Admin: 08/30/23 07:43 Dose: 3 ml Home Medications Medication Instructions Recorded Confirmed Last Taken Type acetaminophen 325 mg capsule 650 mg PO Q6H PRN Pain 09/20/22 08/28/23 Unknown History bisacodyl 10 mg rectal suppository 10 mg MO DAILY PRN Constipation 09/20/22 08/28/23 Unknown History (Dulcolax (bisacodyl)) diazepam 2 mg tablet 3 mg PO BID Anxiety 09/20/22 08/28/23 Unknown History sodium phosphates 19 gram-7 118 ml MO DAILY PRN Constipation 09/20/22 08/28/23 Unknown History gram/118 mL enema (Fleet Enema) lactulose 10 gram/15 mL oral 15 ml PO BID 09/26/22 08/28/23 Unknown History solution levothyroxine 112 mcg tablet 112 mcg PO DAILY 09/26/22 08/28/23 Unknown History perphenazine 4 mg tablet 8 mg PO BID 09/26/22 08/28/23 Unknown History propranolol 10 mg tablet 10 mg PO BID 09/26/22 08/28/23 Unknown History simvastatin 40 mg tablet 40 mg PO BEDTIME 09/26/22 08/28/23 Unknown History nicotine 7 mg/24 hr daily 1 patch transdermal Q24H PRN 12/05/22 08/28/23 Unknown History transdermal patch Smoking Cessation polyvinyl alcohol 1.4 % eye drops 1 drp ophthalmic (eye) TID-QID PRN 12/05/22 08/28/23 Unknown History (Artificial Tears (polyvinyl Dry Eyes alcohol)) sennosides 8.6 mg tablet (senna) 17.2 mg PO DAILY PRN Constipation 12/05/22 08/28/23 Unknown History Physical Exam Vital Signs: Vital Signs: Last Vital Signs Temp 98 F 08/30/23 07:48 Pulse 73 08/30/23 11:00 Resp 17 08/30/23 11:00 BP 107/74 08/30/23 11:00 Pulse Ox 93 08/30/23 11:00 O2 Del Method Oxymask 08/30/23 11:00 O2 Flow Rate 4 08/30/23 11:00 Oxygen Flow Rate 4 08/28/23 11:32 BMI result Body Mass Index 19.3 GENERAL APPEARANCE: Frail, thin. NECK: no carotid bruit, no jugular venous distention. SKIN: no suspicious lesions, warm and dry. HEART: no murmurs, regular rate and rhythm. LUNGS: clear to auscultation bilaterally. ABDOMEN: soft, nontender. EXTREMITIES: no edema. PERIPHERAL PULSES: equal. Objective Labs and Meds 08/30/23 05:14 08/30/23 05:14 Lab results: Laboratory Results - last 24 hr 08/28/23 08/29/23 08/29/23 17:16 13:52 18:18 WBC RBC Hgb Hct MCV MCH MCHC RDW Plt Count MPV Absolute Nucleated RBC Nucleated RBC % (auto) Hold Blue Top VBG pH VBG pCO2 VBG pO2 VBG HCO3 VBG O2 Saturation VBG Base Excess Sodium 150 H 149 H Potassium 3.4 3.5 Chloride 118 H 116 H Carbon Dioxide 24 25 Anion Gap 11 L 12 BUN 41 H 38 H Creatinine 1.23 1.14 Estim Creat Clear Calc 39.7 42.8 Estimated GFR 58 > 60 POC Glucose Random Glucose 118 H 100 Lactic Acid Calcium 8.6 8.7 Phosphorus Magnesium Total Bilirubin AST ALT Alkaline Phosphatase Troponin I High Sens B-Natriuretic Peptide Total Protein Albumin Respiratory Panel [place] See Note Adenovirus (Rapid PCR) Not Detected B.pert (TEM-PCR) Not Detected B.parapertussis DNA PCR Not Detected C. pneumoniae DNA (PCR) Not Detected Coronavirus OC43 (PCR) Not Detected Coronavirus HKU1 (PCR) Not Detected Coronavirus 229E (PCR) Not Detected Coronavirus NL63 (PCR) Not Detected Human Metapneumovir PCR Not Detected Influenza A (RT-PCR) Not Detected Influenza B (RT-PCR) Not Detected M. pneumoniae (PCR) Not Detected Parainfluenza 1 (PCR) Not Detected Parainfluenza 2 (PCR) Not Detected Parainfluenza 3 (PCR) Not Detected Parainfluenza 4 (PCR) Not Detected RSV (PCR) Not Detected Entero/Rhino (PCR) Not Detected SARS-CoV-2 RNA (RT-PCR) Not Detected 08/29/23 08/29/23 08/30/23 22:01 23:35 00:17 WBC 5.6 RBC 3.49 L D Hgb 9.2 L D Hct 30.6 L D MCV 87.7 MCH 26.4 L MCHC 30.1 L RDW 15.6 Plt Count 108 L D MPV 9.4 Absolute Nucleated RBC 0.000 Nucleated RBC % (auto) 0.0 Hold Blue Top SEE NOTE VBG pH VBG pCO2 VBG pO2 VBG HCO3 VBG O2 Saturation VBG Base Excess Sodium 146 H 147 H Potassium 3.1 L 3.2 L Chloride 115 H 117 H Carbon Dioxide 24 23 Anion Gap 10 L 10 L BUN 35 H 35 H Creatinine 1.31 1.15 Estim Creat Clear Calc 37.2 42.4 Estimated GFR 54 > 60 POC Glucose 123 H Random Glucose 127 H 87 Lactic Acid 1.1 Calcium 8.3 L 8.5 Phosphorus 2.8 Magnesium 2.2 Total Bilirubin 0.6 AST 30 ALT 22 Alkaline Phosphatase 78 Troponin I High Sens 3.0 B-Natriuretic Peptide 234 H Total Protein 5.2 L Albumin 3.1 L Respiratory Panel [place] Adenovirus (Rapid PCR) B.pert (TEM-PCR) B.parapertussis DNA PCR C. pneumoniae DNA (PCR) Coronavirus OC43 (PCR) Coronavirus HKU1 (PCR) Coronavirus 229E (PCR) Coronavirus NL63 (PCR) Human Metapneumovir PCR Influenza A (RT-PCR) Influenza B (RT-PCR) M. pneumoniae (PCR) Parainfluenza 1 (PCR) Parainfluenza 2 (PCR) Parainfluenza 3 (PCR) Parainfluenza 4 (PCR) RSV (PCR) Entero/Rhino (PCR) SARS-CoV-2 RNA (RT-PCR) 08/30/23 08/30/23 08/30/23 00:18 00:20 05:14 WBC 7.6 RBC 3.81 L Hgb 9.9 L Hct 33.5 L MCV 87.9 MCH 26.0 L MCHC 29.6 L RDW 15.4 Plt Count 128 L MPV 9.5 Absolute Nucleated RBC 0.000 Nucleated RBC % (auto) 0.0 Hold Blue Top VBG pH 7.43 VBG pCO2 37 VBG pO2 49 VBG HCO3 25 VBG O2 Saturation Not Reportable VBG Base Excess 1.2 Sodium 158 H Potassium 3.9 D Chloride 122 H Carbon Dioxide 25 Anion Gap 15 BUN 29 H Creatinine 1.28 Estim Creat Clear Calc 38.1 Estimated GFR 55 POC Glucose Random Glucose 100 Lactic Acid Calcium 9.0 Phosphorus Cancelled 4.2 Magnesium Cancelled 2.4 Total Bilirubin AST ALT Alkaline Phosphatase Troponin I High Sens B-Natriuretic Peptide Total Protein Albumin 3.7 Respiratory Panel [place] Adenovirus (Rapid PCR) B.pert (TEM-PCR) B.parapertussis DNA PCR C. pneumoniae DNA (PCR) Coronavirus OC43 (PCR) Coronavirus HKU1 (PCR) Coronavirus 229E (PCR) Coronavirus NL63 (PCR) Human Metapneumovir PCR Influenza A (RT-PCR) Influenza B (RT-PCR) M. pneumoniae (PCR) Parainfluenza 1 (PCR) Parainfluenza 2 (PCR) Parainfluenza 3 (PCR) Parainfluenza 4 (PCR) RSV (PCR) Entero/Rhino (PCR) SARS-CoV-2 RNA (RT-PCR) 08/30/23 05:15 WBC RBC Hgb Hct MCV MCH MCHC RDW Plt Count MPV Absolute Nucleated RBC Nucleated RBC % (auto) Hold Blue Top VBG pH 7.36 VBG pCO2 49 VBG pO2 108 VBG HCO3 28 H VBG O2 Saturation Not Reportable VBG Base Excess 2.4 Sodium Potassium Chloride Carbon Dioxide Anion Gap BUN Creatinine Estim Creat Clear Calc Estimated GFR POC Glucose Random Glucose Lactic Acid Calcium Phosphorus Magnesium Total Bilirubin AST ALT Alkaline Phosphatase Troponin I High Sens B-Natriuretic Peptide Total Protein Albumin Respiratory Panel [place] Adenovirus (Rapid PCR) B.pert (TEM-PCR) B.parapertussis DNA PCR C. pneumoniae DNA (PCR) Coronavirus OC43 (PCR) Coronavirus HKU1 (PCR) Coronavirus 229E (PCR) Coronavirus NL63 (PCR) Human Metapneumovir PCR Influenza A (RT-PCR) Influenza B (RT-PCR) M. pneumoniae (PCR) Parainfluenza 1 (PCR) Parainfluenza 2 (PCR) Parainfluenza 3 (PCR) Parainfluenza 4 (PCR) RSV (PCR) Entero/Rhino (PCR) SARS-CoV-2 RNA (RT-PCR) Imaging Radiologist's impression: Impressions Chest X-Ray 08/30/23 00:48 IMPRESSION: No focal consolidation identified. Mildly coarsened appearance of the interstitium may reflect underlying airways disease. Assessment and Plan (1) Bradycardia: Status: Acute (2) Severe sepsis: Status: Acute Plan 73-year-old gentleman who had aspiration and hypotension and bradycardia. He has chronic history of aspiration and has background of traumatic brain injury and schizophrenia. He is off dopamine at this point and his heart rates are in 70s to 80s. Even with simple exercise of leg raising his heart rate response well and goes up. He does not have any advanced blocks currently. I am not sure how hypoxic he was at the time he had aspiration as hypoxia can trigger bradycardia. In any case he is stable currently and should be monitored off dopamine. Supportive care as per the intensive care unit. We will follow along with you. Thank you for allowing me to participate in the care of your patient. Please feel free to contact me if you have any questions. Procedures Date of Service Date of Service: 08/30/23
--- NOTE | 2023-08-30 14:30 | MHC.SL.SWA ---
Speech Pathologist Impression: Risk of aspiration, oropharyngeal dysphagia Risk of Aspiration Due to: Neurological Condition Dysphasia Diet Status: No change Liquid Consistency and Strategies for Safe Swallow: Liquid Intake Recommendation: NPO Solid Food Consistency: Dietary Recommendations: NPO Additional Modifications to Solid Foods: Pt given small amount of puree and honey thick liquid. Pt demonstrated moderate delay in initiating swallow. Upon swallowing, pt consistently coughing and gagging, presenting w/ gurgly wet voice after PO intake, which he was unable to clear with volitional coughing and throat clearing. Recommend continue NPO status at this time as pt is not able to manage his secretions and is demonstrating overt s/s of aspiration with PO intake. Keep head of bed elevated at least 30 degrees and provide frequent oral care, moistened swabs for comfort. Notified care team (MD, RN, RD). HEALTH INFORMATION CODER is available over the weekend for call-in if needed. Oral Medication Intake: NPO Please contact the pharmacy regarding appropriate crushable or liquid drug formulations that are available whenever modified delivery is recommended. Recommendation for Speech: Inpatient Speech Therapy Comment: HEALTH INFORMATION CODER to re-assess swallow when appropriate Frequency/Duration: M-F PRN Date Range for Service Req: Timeline to reassess: Prosthetic Lab Technician Clinican/Clinical Fellow: No Supervisory Statement: I have reviewed and agree with the student/clinical fellow's documentation: N/A Speech Language Pathologist: Brook Luis M.A., [facility]-HEALTH INFORMATION CODER
--- NOTE | 2023-08-30 14:54 | MHC.CM.PN ---
EMR REVIEWED.PT REMAINS IN ICU, SEEN BY DIESEL DINKEY ENGINEER, REMAINS NPO. [facility]. CM WILL CONTINUE TO FOLLOW, [facility].
[2023-08-30] MEDS: Enoxaparin Sodium 30 MG/0.3 ML SYRINGE SUBCUT (17:55)
[2023-08-30 19:37] LABS: Anion Gap 18 (12-20); Blood Urea Nitrogen 26 mg/dL (9-16); Calcium 9.4 mg/dL (8.4-10.2); Carbon Dioxide 27 mmol/L (22-29); Chloride 113 mmol/L (96-108); Estimated Glomerular Filt Rate 53; Glucose Random 105 mg/dL (60-115); Magnesium 2.3 mg/dL (1.6-2.6); Phosphorus 3.9 mg/dL (2.7-4.5); Potassium 3.3 mmol/L (3.3-5.1); Sodium 155 mmol/L (135-145)
[2023-08-30] MEDS: Potassium Chloride/H20 10 MEQ/100 ML PIGGYBACK 100 MEQ IV ×4 (20:23→23:41)
[2023-08-31] VITALS (13 sets, daily range): BP systolic 92–134; BP diastolic 54–90; PULSE 46–87; RESP 12–19; TEMP 35.9–36.4; O2SAT 92–98
[2023-08-31] MEDS: Piperacillin Sodium/Tazobactam 3.375 GM in 0.9 % Sodium Chloride 50 ML IV ×2 (01:19→08:26)
[2023-08-31] MEDS: vancomycin HCL 750 MG in 0.9 % Sodium Chloride 250 ML 265 MG IV (02:14)
[2023-08-31 05:26] LABS: VBG Base Excess 5.3 mmol/L; VBG HCO3 29 mmol/L (22-26); VBG pCO2 42 mmHg; VBG pH 7.45 (7.32-7.43); VBG pO2 67 mmHg
[2023-08-31] MEDS: Levothyroxine Sodium 100 MCG/5 ML VIAL 80 MCG IVPUSH (05:33)
[2023-08-31] MEDS: Dextrose 5 % 1,000 ML 100 ML IVCONT ×2 (05:34→15:09)
[2023-08-31 05:40] LABS: Hemoglobin 9.4 g/dl (14.0-18.0); Imm Gran Abs Auto 0.01 X10*3/uL (0.00-0.03); Imm Gran Pct Auto 0.2 % (0.0-0.4); MANUAL DIFF FLAG SCAN; Mean Corpuscular HGB Conc 29.7 g/dl (31.0-36.0); Neutrophils Absolute Auto 3.3 x10*3/uL (2.0-8.3); PLT CLUMP 1; SCAN SMEAR FLAG 1
[2023-08-31 05:43] LABS: Basophils Percent Auto 0.6 % (0-2); Eosinophils Absolute Auto 0.1 X10*3/uL (0.0-0.4); Eosinophils Percent Auto 1.8 % (0-4); Hematocrit 31.7 % (42.0-52.0); Lymphocytes Percent Auto 20.1 % (20-40); Mean Corpuscular Hemoglobin 26.5 pg (27.0-33.0); Mean Corpuscular Volume 89.3 fL (80.0-98.0); Mean Platelet Volume 10.5 fL (9.4-12.4); Monocytes Absolute Auto 0.5 X10*3/uL (0.1-1.2); Monocytes Percent Auto 10.4 % (2-11); Neutrophils Percent Auto 66.9 % (45-73); Red Blood Count 3.55 X10*6/uL (4.60-5.80); Red Cell Distribution Width 15.4 % (11.0-16.0)
[2023-08-31 05:44] LABS: Platelet Count 99 X10*3/uL (160-400); White Blood Count 4.9 X10*3/uL (4.8-10.8)
[2023-08-31 06:03] LABS: Albumin Level 3.9 g/dL (3.5-5.0); Anion Gap 13 (12-20); Blood Urea Nitrogen 26 mg/dL (9-16); Calcium 9.4 mg/dL (8.4-10.2); Carbon Dioxide 26 mmol/L (22-29); Chloride 114 mmol/L (96-108); Creatinine Clr Calc Pharmacy 39.7; Estimated Glomerular Filt Rate 58; Glucose Random 95 mg/dL (60-115); Magnesium 2.3 mg/dL (1.6-2.6); Phosphorus 2.9 mg/dL (2.7-4.5); Potassium 3.6 mmol/L (3.3-5.1); SLIDE REVIEW VERIFIED; Sodium 149 mmol/L (135-145)
[2023-08-31 06:18] LABS: TSH reflex Free T4 0.26 uIU/mL (0.32-4.0)
[2023-08-31 06:19] LABS: Thyroid Stimulating Hormone 0.25 uIU/mL (0.32-4.0)
[2023-08-31 07:13] LABS: Free T4 (Free Thyroxine) 1.04 ng/dL (0.71-1.85)
[2023-08-31] MEDS: 0.9 % Sodium Chloride Flush 3 ML SYRINGE IVFLUSH ×2 (08:26→21:41)
--- NOTE | 2023-08-31 09:42 | PM.CCPN ---
Subjective Subjective Date of Service: 08/31/23 Interval History: 73-year-old gentleman with underlying history of traumatic brain injury, paranoid schizophrenia, [facility] resident, also recent AAA repair, underlying COPD, history of dysphagia admitted on 08/28/2023 with frequent falls and hypoxia. Hospital course significant for an episode of aspiration with hypotension and bradycardia requiring transfer to intensive care unit and vasopressor support. Evaluated by cardiology service and does not require pacemaker at this time. Now titrated off pressor support. Critical Care Time (minutes): 0 Physical Exam Vital Signs: Vital Signs: Last Vital Signs Temp 96.9 F 08/31/23 08:00 Pulse 58 08/31/23 09:00 Resp 19 08/31/23 09:00 BP 129/81 08/31/23 09:00 Pulse Ox 95 08/31/23 09:00 O2 Del Method Room Air 08/31/23 09:00 O2 Flow Rate 2 08/31/23 07:00 Oxygen Flow Rate 2 08/30/23 23:17 BMI result Body Mass Index 19.3 Const: General: no acute distress, alert and awake Eyes: Sclerae: sclerae normal EOM: EOMs intact bilaterally Neck: Neck: Yes no lymphadenopathy, Yes trachea midline and Yes supple Resp: Effort & Inspection: normal respiratory effort and no respiratory distress Auscultation: clear to auscultation bilaterally Cardio: Rate: regular rate Rhythm: regular rhythm Heart sounds: no gallops, no murmurs and no rubs GI: Palpation (GI): Soft to palpation and Other GI palpation findings present ( Nontender) Auscultation: normal bowel sounds Extrem: General: Yes no pedal edema, No clubbing and No cyanosis Objective Data Labs 08/31/23 05:17 08/31/23 05:17 Labs: Laboratory Results - last 24 hr 08/30/23 08/31/23 08/31/23 19:05 05:17 05:17 WBC 4.9 RBC 3.55 L Hgb 9.4 L Hct 31.7 L MCV 89.3 MCH 26.5 L MCHC 29.7 L RDW 15.4 Plt Count 99 L MPV 10.5 Immature Gran % (Auto) 0.2 Neut % (Auto) 66.9 Lymph % (Auto) 20.1 [place] % (Auto) 10.4 Eos % (Auto) 1.8 Baso % (Auto) 0.6 Lymph # (Auto) 1.0 L [place] # (Auto) 0.5 Eos # (Auto) 0.1 Baso # (Auto) 0.0 Abs Immat Gran (auto) 0.01 Absolute Neuts (auto) 3.3 Absolute Nucleated RBC 0.000 Nucleated RBC % (auto) 0.0 Smear Tech's Comments VERIFIED VBG pH VBG pCO2 VBG pO2 VBG HCO3 VBG Base Excess Sodium 155 H 149 H Potassium 3.3 3.6 Chloride 113 H 114 H Carbon Dioxide 27 26 Anion Gap 18 13 BUN 26 H 26 H Creatinine 1.32 1.23 Estim Creat Clear Calc 37.0 39.7 Estimated GFR 53 58 Random Glucose 105 95 Calcium 9.4 9.4 Phosphorus 3.9 2.9 Magnesium 2.3 2.3 Albumin 3.9 TSH 0.25 L 0.26 L Free T4 1.04 08/31/23 05:19 WBC RBC Hgb Hct MCV MCH MCHC RDW Plt Count MPV Immature Gran % (Auto) Neut % (Auto) Lymph % (Auto) [place] % (Auto) Eos % (Auto) Baso % (Auto) Lymph # (Auto) [place] # (Auto) Eos # (Auto) Baso # (Auto) Abs Immat Gran (auto) Absolute Neuts (auto) Absolute Nucleated RBC Nucleated RBC % (auto) Smear Tech's Comments VBG pH 7.45 H VBG pCO2 42 VBG pO2 67 VBG HCO3 29 H VBG Base Excess 5.3 Sodium Potassium Chloride Carbon Dioxide Anion Gap BUN Creatinine Estim Creat Clear Calc Estimated GFR Random Glucose Calcium Phosphorus Magnesium Albumin TSH Free T4 Microbiology Microbiology Results: Microbiology 08/30/23 00:17 Blood - Venous Blood Culture - Preliminary No growth after 24 hours. 08/30/23 00:17 Blood - Venous Blood Culture - Preliminary No growth after 24 hours. 08/28/23 12:41 Blood - Venous Blood Culture - Preliminary No growth after 48 hours. 08/28/23 11:53 Blood - Venous Blood Culture - Preliminary No growth after 48 hours. 08/28/23 Unknown Urine clean catch - Urine valdes top Urine Culture - Final Progress Note: A&P Assessment and plan (1) Aspiration into airway: Status: Acute (2) Pulmonary emphysema: Status: Acute (3) Paranoid schizophrenia: Status: Acute (4) Alcohol dependence, uncomplicated: Status: Acute (5) Status post AAA (abdominal aortic aneurysm) repair: Status: Acute (6) Personal history of traumatic brain injury: Status: Acute Plan Assessment: 23-year-old gentleman with underlying TBI permanent schizophrenia, COPD dysphagia admitted with frequent falls and hypoxia secondary to aspiration Plan: Neuro: No acute issues. Cardiac: Bradycardia, evaluated by Cardiology service with no plans for pacemaker placement. Titrated off dopamine. Pulmonary: Recurrent pulmonary aspiration, now resolved. Underlying COPD. Renal: No acute issues. Endo: No acute issues. GI: No acute issues. ID: Empirically covered for aspiration. Heme/Onc: No acute issues. Psych: No acute issues. Underlying paranoid schizophrenia. Miscellaneous: No acute issues. Prophylaxis: Heparin Diet: Pending swallow evaluation Quality Stroke Does the patient have a stroke diagnosis?: No VTE Prior VTE?: No VTE Risk Level:: Medical - moderate - high VTE Device Contraindication: Treatment Not Indicated VTE Drug Contraindication: N/A - Med Ordered
[2023-08-31] MEDS: Ampicillin Sodium/Sulbactam Na 3 GM in 0.9 % Sodium Chloride 100 ML IV ×3 (10:09→21:40)
[2023-08-31 10:12] LABS: Venous Blood Gas Refer to POC result
--- NOTE | 2023-08-31 12:58 | P.PNCA_ITS ---
Subjective Subjective Date of Service: 08/31/23 Interval history: Seen examined at bedside. Telemetry reviewed. No significant bradycardia or pauses. Sinus [place] in 50s. Physical Exam Vital Signs: Last Vital Signs Temp 97.5 F 08/31/23 12:00 Pulse 53 08/31/23 12:00 Resp 17 08/31/23 12:00 BP 115/81 08/31/23 12:00 Pulse Ox 95 08/31/23 12:00 O2 Del Method Room Air 08/31/23 12:00 O2 Flow Rate 2 08/31/23 07:00 Oxygen Flow Rate 2 08/30/23 23:17 BMI result Body Mass Index 19.3 GENERAL APPEARANCE: Frail, thin. NECK: no carotid bruit, no jugular venous distention. SKIN: no suspicious lesions, warm and dry. HEART: no murmurs, regular rate and rhythm. LUNGS: clear to auscultation bilaterally. ABDOMEN: soft, nontender. EXTREMITIES: no edema. PERIPHERAL PULSES: equal. Objective Labs and Meds 08/31/23 05:17 08/31/23 05:17 Lab results: Laboratory Results - last 24 hr 08/30/23 08/31/23 08/31/23 19:05 05:17 05:17 WBC 4.9 RBC 3.55 L Hgb 9.4 L Hct 31.7 L MCV 89.3 MCH 26.5 L MCHC 29.7 L RDW 15.4 Plt Count 99 L MPV 10.5 Immature Gran % (Auto) 0.2 Neut % (Auto) 66.9 Lymph % (Auto) 20.1 [place] % (Auto) 10.4 Eos % (Auto) 1.8 Baso % (Auto) 0.6 Lymph # (Auto) 1.[address] [place] # (Auto) 0.5 Eos # (Auto) 0.1 Baso # (Auto) 0.0 Abs Immat Gran (auto) 0.01 Absolute Neuts (auto) 3.3 Absolute Nucleated RBC 0.000 Nucleated RBC % (auto) 0.0 Smear Tech's Comments VERIFIED VBG pH VBG pCO2 VBG pO2 VBG HCO3 VBG Base Excess Sodium 155 H 149 H Potassium 3.3 3.6 Chloride 113 H 114 H Carbon Dioxide 27 26 Anion Gap 18 13 BUN 26 H 26 H Creatinine 1.32 1.23 Estim Creat Clear Calc 37.0 39.7 Estimated GFR 53 58 Random Glucose 105 95 Calcium 9.4 9.4 Phosphorus 3.9 2.9 Magnesium 2.3 2.3 Albumin 3.9 TSH 0.25 L 0.26 L Free T4 1.04 08/31/23 05:19 WBC RBC Hgb Hct MCV MCH MCHC RDW Plt Count MPV Immature Gran % (Auto) Neut % (Auto) Lymph % (Auto) [place] % (Auto) Eos % (Auto) Baso % (Auto) Lymph # (Auto) [place] # (Auto) Eos # (Auto) Baso # (Auto) Abs Immat Gran (auto) Absolute Neuts (auto) Absolute Nucleated RBC Nucleated RBC % (auto) Smear Tech's Comments VBG pH 7.45 H VBG pCO2 42 VBG pO2 67 VBG HCO3 29 H VBG Base Excess 5.3 Sodium Potassium Chloride Carbon Dioxide Anion Gap BUN Creatinine Estim Creat Clear Calc Estimated GFR Random Glucose Calcium Phosphorus Magnesium Albumin TSH Free T4 Progress Note: A&P Assessment and plan (1) Bradycardia: Status: Acute Plan 73-year-old gentleman with aspiration and bradycardia. He was on dopamine but has been taken off of that. His heart rates are stable. With activity inside the bed and he was sitting forward and moving his legs his heart rate goes up. No indication for permanent pacemaker placement currently. Continue to monitor closely. Thank you for allowing me to participate in the care of your patient. Please feel free to contact me if you have any questions. Time Spent With Patient Time: Total time managing care of this patient today ____ minutes. Progress Note: Quality Stroke Does the patient have a stroke diagnosis?: No Procedures Date of Service Date of Service: 08/31/23
[2023-08-31 15:43] LABS: Anion Gap 15 (12-20); Blood Urea Nitrogen 26 mg/dL (9-16); Calcium 9.6 mg/dL (8.4-10.2); Carbon Dioxide 24 mmol/L (22-29); Chloride 114 mmol/L (96-108); Estimated Glomerular Filt Rate 60; Glucose Random 78 mg/dL (60-115); Potassium 3.9 mmol/L (3.3-5.1); Sodium 149 mmol/L (135-145)
[2023-08-31] MEDS: Enoxaparin Sodium 30 MG/0.3 ML SYRINGE SUBCUT (17:03)
[2023-09-01] VITALS: BP 119/79; PULSE 71; RESP 18; TEMP 36.7; O2SAT 94
[2023-09-01 03:30] VITALS: BP 111/75; PULSE 71; RESP 18; TEMP 36.7; O2SAT 97
[2023-09-01] MEDS: Ampicillin Sodium/Sulbactam Na 3 GM in 0.9 % Sodium Chloride 100 ML IV ×4 (04:27→21:52)
[2023-09-01] MEDS: Dextrose 5 % 1,000 ML 100 ML IVCONT ×2 (05:50→16:15)
[2023-09-01 06:54] LABS: MANUAL DIFF FLAG NO
[2023-09-01 07:02] LABS: Basophils Percent Auto 0.3 % (0-2); Eosinophils Absolute Auto 0.1 X10*3/uL (0.0-0.4); Eosinophils Percent Auto 1.4 % (0-4); Hemoglobin 11.6 g/dl (14.0-18.0); Imm Gran Abs Auto 0.02 X10*3/uL (0.00-0.03); Imm Gran Pct Auto 0.3 % (0.0-0.4); Lymphocytes Absolute Auto 0.7 X10*3/uL (1.2-4.9); Lymphocytes Percent Auto 11.4 % (20-40); Mean Corpuscular HGB Conc 30.5 g/dl (31.0-36.0); Mean Corpuscular Hemoglobin 26.4 pg (27.0-33.0); Mean Corpuscular Volume 86.6 fL (80.0-98.0); Mean Platelet Volume 10.3 fL (9.4-12.4); Monocytes Absolute Auto 0.4 X10*3/uL (0.1-1.2); Monocytes Percent Auto 6.2 % (2-11); Neutrophils Absolute Auto 4.7 x10*3/uL (2.0-8.3); Neutrophils Percent Auto 80.4 % (45-73); Platelet Count 118 X10*3/uL (160-400); Red Blood Count 4.39 X10*6/uL (4.60-5.80); Red Cell Distribution Width 15.1 % (11.0-16.0); White Blood Count 5.8 X10*3/uL (4.8-10.8)
[2023-09-01 07:28] LABS: Anion Gap 14 (12-20); Blood Urea Nitrogen 26 mg/dL (9-16); Calcium 9.9 mg/dL (8.4-10.2); Carbon Dioxide 26 mmol/L (22-29); Chloride 111 mmol/L (96-108); Creatinine Clr Calc Pharmacy 44.4; Estimated Glomerular Filt Rate > 60; Glucose Random 87 mg/dL (60-115); Magnesium 2.3 mg/dL (1.6-2.6); Phosphorus 2.3 mg/dL (2.7-4.5); Sodium 147 mmol/L (135-145)
[2023-09-01 07:46] VITALS: BP 119/85; PULSE 69; RESP 20; TEMP 36.2; O2SAT 96
[2023-09-01] MEDS: 0.9 % Sodium Chloride Flush 3 ML SYRINGE IVFLUSH ×2 (10:07→15:59)
[2023-09-01 11:29] VITALS: BP 90/58; PULSE 72; RESP 20; TEMP 36.1; O2SAT 93
--- NOTE | 2023-09-01 12:05 | HO.PM.IMPN ---
Subjective Subjective Date of Service: 09/01/23 Interval History: Seen and evaluated this morning more alert and interactive asking for diet no other overnight events Review of Systems Review of Systems: Yes all other systems are reviewed and are negative Physical Exam Vital Signs: Vital Signs: Last Vital Signs Temp 96.9 F 09/01/23 11:29 Pulse 72 09/01/23 11:29 Resp 20 09/01/23 11:29 BP 90/58 L 09/01/23 11:29 Pulse Ox 93 09/01/23 11:29 O2 Del Method Room Air 09/01/23 11:29 O2 Flow Rate 2 08/31/23 07:00 Oxygen Flow Rate 2 08/30/23 23:17 BMI result Body Mass Index 19.3 Const: Other: Constitutional : Awake, interactive, not in distress Neck : Normal inspection, Supple Cardiovascular : RRR, no JVP, no lower extremity edema Respiratory : good bilateral air entry, no crackles, wheezes or rhonchi Gastrointestinal: soft, lax, Normal bowel sounds, Non tender Skin : Warm, Dry Neurological : Alert to self and disoriented x2, No focal deficit Objective Data Active Medications Artificial Tears (Artificial Tears 15 Ml Drops) 1 drop EYE-BOTH QID PRN PRN Reason: Dry Eyes Enoxaparin Sodium (Enoxaparin Sodium 30 Mg/0.3 Ml Syringe) 30 mg SUBCUT Q24H [facility] Last Admin: 08/31/23 17:03 Dose: 30 mg Documented By: CONRADO Ampicillin Sodium/Sulbactam (Sodium 3 gm/ Sodium Chloride) 100 mls @ 200 mls/hr IV Q6H [facility] Last Admin: 09/01/23 10:07 Dose: 200 mls/hr Documented By: PODMORP Dextrose (D5w) 1,000 mls @ 100 mls/hr IVCONT .Q10H [facility] Last Admin: 09/01/23 05:50 Dose: 100 mls/hr Documented By: JOSH Levothyroxine Sodium (Levothyroxine Sodium 112 Mcg Tablet) 112 mcg PO DAILY@0600 [facility] Last Admin: 09/01/23 05:49 Dose: Not Given Documented By: JOSH Non-Admin Reason: NPO Ondansetron HCl (Ondansetron Hcl 4 Mg/2 Ml Vial) 4 mg IVPUSH Q8H PRN PRN Reason: Nausea and Vomiting Sodium Chloride (0.9 % Sodium Chloride Flush 3 Ml Syringe) 3 ml IVFLUSH QSHIFT [facility] Last Admin: 09/01/23 10:07 Dose: 3 ml Documented By: ANGELITO.PODMORP Labs 09/01/23 06:29 09/01/23 06:29 Labs: Laboratory Results - last 24 hr 08/31/23 09/01/23 15:25 06:29 MCV 86.6 MCH 26.4 L MCHC 30.5 L RDW 15.1 Plt Count 118 L MPV 10.3 Immature Gran % (Auto) 0.3 Neut % (Auto) 80.4 H Lymph % (Auto) 11.4 L Faulk % (Auto) 6.2 Eos % (Auto) 1.4 Baso % (Auto) 0.3 Lymph # (Auto) 0.7 L Faulk # (Auto) 0.4 Eos # (Auto) 0.1 Baso # (Auto) 0.0 Abs Immat Gran (auto) 0.02 Absolute Neuts (auto) 4.7 Absolute Nucleated RBC 0.000 Nucleated RBC % (auto) 0.0 Anion Gap 15 14 Estim Creat Clear Calc 41.0 44.4 Estimated GFR 60 > 60 Random Glucose 78 87 Calcium 9.6 9.9 Phosphorus 2.3 L Magnesium 2.3 Microbiology Microbiology Results: Microbiology 08/30/23 00:17 Blood Culture - Preliminary Blood - Venous No growth after 48 hours. 08/30/23 00:17 Blood Culture - Preliminary Blood - Venous No growth after 48 hours. Assessment and Plan (1) Bradycardia: Status: Acute (2) Hypotension: Status: Acute (3) Aspiration into airway: Status: Acute (4) Dysphagia: Status: Acute (5) Swallowing problem: Status: Acute (6) KELLY (acute kidney injury): Status: Acute Plan Pt is a 73-year-old male with a PMH significant for?TBI, AAA s/p elective repair, COPD on prn home O2, hypothyroidism, HTN, HLD, BPH, and paranoid schizophrenia who presents to the ED from SNF for evaluation of generalized weakness with frequent falls. went to ICU for pressors for low BP. Acute Hypernatremia Improving to 147 this morning Continue D5W at 100 mL/hr to replace free water Nephrology following Follow sodium Hypotension secondary to dehydration and decrease PO intake not due to sepsis resolved after boluses and Albumin with the need of pressors in ICU monitor BP Acute on chronic hypoxic respiratory failure secondary to aspiration pneumonia covered by Unasyn, Abx started 08/28/2023 Aspiration precautions Titrate supplemental O2 >92, wean as tolerated KELLY resolved Follow BMP Swallowing problem PROJECT MANAGEMENT IT SPECIALIST following, advance to pureed today Hypothermia resolved Diet/Protein calorie malnutrition Patient with TBI, dysphagia, dysarthria Pureed diet with honey thick liquids Magic cup supplement bid Requires assistance and monitoring with eating COPD Continue home inhalers Will be given DuoNebs Hypothyroidism Continue levothyroxine Hx of TBI, paranoid schizophrenia Continue home meds Full Code DVT Prophylaxis: Lovenox Pt will require a hospitalization of overnight for treatment of?KELLY, UTI, and hyponatremia. Given patient's many significant comorbidities, patient required hospitalized care for treatment with IV antibiotics, IV hypotonic fluid, close monitoring of labs Quality Stroke Does the patient have a stroke diagnosis?: No VTE Prior VTE?: No VTE Risk Level:: Medical - moderate - high VTE Device Contraindication: Treatment Not Indicated VTE Drug Contraindication: N/A - Med Ordered
[2023-09-01 15:22] VITALS: BP 109/80; PULSE 67; RESP 20; TEMP 36.1; O2SAT 95
[2023-09-01] MEDS: Midodrine HCl 5 MG TABLET PO (15:59)
[2023-09-01] MEDS: Enoxaparin Sodium 30 MG/0.3 ML SYRINGE SUBCUT (17:59)
[2023-09-01 19:46] VITALS: BP 101/73; PULSE 69; RESP 16; TEMP 36.2; O2SAT 93
[2023-09-02] VITALS: BP 116/80; PULSE 71; RESP 20; TEMP 36.1; O2SAT 94
[2023-09-02 03:16] VITALS: BP 140/93; PULSE 71; RESP 20; TEMP 36.1; O2SAT 94
[2023-09-02] MEDS: Ampicillin Sodium/Sulbactam Na 3 GM in 0.9 % Sodium Chloride 100 ML IV ×4 (04:43→22:57)
[2023-09-02] MEDS: Dextrose 5 % 1,000 ML 100 ML IVCONT ×2 (04:47→16:02)
[2023-09-02] MEDS: Levothyroxine Sodium 112 MCG TABLET PO (05:57)
[2023-09-02 07:25] LABS: Anion Gap 12 (12-20); Blood Urea Nitrogen 21 mg/dL (9-16); Calcium 9.5 mg/dL (8.4-10.2); Carbon Dioxide 27 mmol/L (22-29); Chloride 108 mmol/L (96-108); Creatinine Clr Calc Pharmacy 50.3; Estimated Glomerular Filt Rate > 60; Glucose Random 88 mg/dL (60-115); Potassium 3.8 mmol/L (3.3-5.1); Sodium 143 mmol/L (135-145)
[2023-09-02 07:26] VITALS: BP 140/89; PULSE 55; RESP 20; TEMP 36; O2SAT 94
--- NOTE | 2023-09-02 08:31 | PM.DS ---
DS: Providers Provider Date of admission: 08/28/23 17:47 Primary care physician: Jeffrey Delatorre DO Consults: 08/28/23 15:23 Consult to Nephrology Stat Consulting Provider: William Harden Reason for consultation: kelly, hypernatremia 08/30/23 08:09 Consult to Cardiology Routine Consulting [place] [facility] [place] [facility] Reason for consultation: Symptomatic bradycardia Has provider been notified: No DS: Diagnosis Discharge Diagnosis (1) Bradycardia: Status: Acute (2) Hypotension: Status: Acute (3) Aspiration into airway: Status: Acute (4) Dysphagia: Status: Acute (5) Swallowing problem: Status: Acute (6) KELLY (acute kidney injury): Status: Acute (7) Hypernatremia: Status: Acute (8) Acute respiratory failure with hypoxia: Status: Acute DS: Summary Hospital Course Hospital Course: Admission note HPI Pt is a 73-year-old male with a PMH significant for?TBI, AAA s/p elective repair, COPD on prn home O2, hypothyroidism, HTN, HLD, BPH, and paranoid schizophrenia who presents to the ED from SNF for evaluation of generalized weakness with frequent falls. Pt is a resident of [facility] and has had progressively worsening physical decompensation with frequent falls with head strike for the past few days. Patient is not on blood thinners, and it is unclear whether there was any loss of consciousness. Pt is alert and oriented to self only and is thus incapable of providing accurate HPI, which is instead obtained from chart and provider review. Patient initially presented to the ED agitated, nonverbal, and with altered mental status, but mentation improved during the course of treatment. EMS found patient hypoxic, satting at 83% on RA. Patient has a history of COPD, emphysema, and hx of acute hypoxic episodes and is on prn home O2. Pt himself offers no acute medical complaints but pt is AOx1 and a poor historian. In the ED was satting at 90% on 4 L NC, otherwise initial vitals all WNL. Repeat temperature found to be 93.5 rectally. Labs were significant for WBC 1.3, sodium 159, chloride 123, BUN 49, creatinine 1.48, alk-phos 130. UA positive for UTI. CT of head found extensive chronic changes with probable old right temporal lobe infarct, but no acute fracture or acute intracranial hemorrhage. ?CT of cervical spine found no acute fracture or posttraumatic spinal subluxation, but did show chronic advanced multilevel degenerative spondylolysis and at least moderate canal stenosis. CTA of chest found no evidence of pulmonary embolism, but did show emphysema and airway disease with bronchial wall thickening and increased peribronchial attenuation, suggestive of either infectious, inflammatory, or neoplastic processes. Pt was treated with DuoNeb, Zosyn, IVF, midazolam, and started on D5W. Pt will be admitted to the hospital for treatment and further evaluation of UTI, KELLY, and hypernatremia. Hospital course Admitted for treatment of the following: # Acute Hypernatremia Presented with sodium of 160 on presentation. treated with IV D5W with fair response over the course of hospital stay as it went down gradually to 143. followed by nephrology team while inpatient. # Hypotension Believed to be secondary to dehydration and decrease PO intake. required boluses and Albumin with the need of pressors in ICU breif stay. blood pressure improved back to normal range. # Acute on chronic hypoxic respiratory failure secondary to aspiration pneumonia recovered well as he weaned off O2 as he was covered by Unasyn. Aspiration precautions and modified diet. blood cultures remained negative. Titrate supplemental O2 >92, wean as tolerated # KELLY resolved with treatment with IV fluids. likely a result of hypotension. # Swallowing problem AUTO CAMP ATTENDANT following, advance to pureed with Honey thick liquids. Diet/Protein calorie malnutrition Patient with TBI, dysphagia, dysarthria Pureed diet with honey thick liquids Magic cup supplement bid Requires assistance and monitoring with eating Physical Exam Vital Signs: Vital Signs: Last Vital Signs Temp 96.8 F 09/02/23 07:26 Pulse 55 09/02/23 07:26 Resp 20 09/02/23 07:26 BP 140/89 H 09/02/23 07:26 Pulse Ox 94 09/02/23 07:26 O2 Del Method Room Air 09/02/23 07:26 O2 Flow Rate 2 08/31/23 07:00 Oxygen Flow Rate 2 08/30/23 23:17 BMI result Body Mass Index 19.3 Const: Other: Constitutional : Awake, interactive, not in distress Neck : Normal inspection, Supple Cardiovascular : RRR, no JVP, no lower extremity edema Respiratory : good bilateral air entry, no crackles, wheezes or rhonchi Gastrointestinal: soft, lax, Normal bowel sounds, Non tender Skin : Warm, Dry Neurological : Alert to self and disoriented x2, No focal deficit DS: Data Data Completed and Pending Completed studies during hospitalization [Text1]: Procedures Restriction of Abdominal Aorta with Intraluminal Device, Percutaneous Approach (12/24/22) Labs on day of discharge: Laboratory Results - last 24 hr 08/31/23 09/02/23 05:19 06:35 Hold Purple Top SEE NOTE VBG O2 Saturation TNP Sodium 143 Potassium 3.8 Chloride 108 Carbon Dioxide 27 Anion Gap 12 BUN 21 H Creatinine 0.97 Estim Creat Clear Calc 50.3 Estimated GFR > 60 Random Glucose 88 Calcium 9.5 Preliminary micro results at discharge 08/30/23 00:17 Blood Culture - Preliminary Blood - Venous No growth after 48 hours. 08/30/23 00:17 Blood Culture - Preliminary Blood - Venous No growth after 48 hours. 08/28/23 12:41 Blood Culture - Preliminary Blood - Venous No growth after 48 hours. 08/28/23 11:53 Blood Culture - Preliminary Blood - Venous No growth after 48 hours. Imaging Chest x-ray: Radiologist's impression: ITS Impressions Cervical Spine CT 08/28/23 15:35 IMPRESSION: Advanced multilevel degenerative spondylosis of the cervical spine. No acute fracture and no posttraumatic spinal subluxation. There is at least moderate canal stenosis at multiple levels with possible severe stenosis at the level of C4-C5, C5-C6, and C6-C7. If there are clinical symptoms of compressive myelopathy then a dedicated cervical spine MRI can be obtained for better anatomic characterization of the cord and canal. Chest CTA 08/28/23 15:35 IMPRESSION: No evidence of pulmonary embolism. Emphysema. Airways disease with bronchial wall thickening and increased peribronchial attenuation, greatest in the lingula and left lower lobe. New 9 x 9 x 15 mm tubular shaped left upper lobe nodule. This could represent an inspissated bronchus. Infectious, inflammatory and neoplastic processes should be considered. Short-term chest CT follow-up following treatment recommended. VTE: negative Head CT 08/28/23 15:35 IMPRESSION: Extensive chronic change. 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 No acute fracture or acute intracranial hemorrhage. Renal Ultrasound 08/29/23 09:35 IMPRESSION: Septated cyst lower pole right kidney measuring 3.0 x 3.1 x 3.1 cm. This was previously described as a simple cyst by CT characterization on 04/01/2023 requiring no further imaging follow-up. Chest X-Ray 08/30/23 00:48 IMPRESSION: No focal consolidation identified. Mildly coarsened appearance of the interstitium may reflect underlying airways disease. Discharge Plan Discharge Anticipated Discharge Date/Time: 09/02/23 08:21 Patient Disposition: er [facility] Discharge Diagnosis: Sepsis , aspiration pneumonia Referrals: Jeffrey Delatorre DO [Primary Care Provider] - 1 Week Discharge Medications: New amoxicillin-pot clavulanate 400-57 mg/5 mL suspension for reconstitution 10 ml PO BID Qty: 100 0RF Continued lactulose 10 gram/15 mL solution 15 ml PO BID perphenazine 4 mg tablet 8 mg PO BID propranolol 10 mg tablet 10 mg PO BID simvastatin 40 mg tablet 40 mg PO BEDTIME levothyroxine 112 mcg tablet 112 mcg PO DAILY diazepam 2 mg tablet 3 mg PO BID bisacodyl [Dulcolax (bisacodyl)] 10 mg suppository 10 mg IL DAILY PRN (Reason: Constipation) acetaminophen 325 mg capsule 650 mg PO Q6H PRN (Reason: Pain) Fleet Enema 19-7 gram/118 mL enema 118 ml IL DAILY PRN (Reason: Constipation) polyvinyl alcohol [Artificial Tears (polyvin alc)] 1.4 % drops 1 drp ophthalmic (eye) TID-QID PRN (Reason: Dry Eyes) nicotine 7 mg/24 hr patch 24 hour 1 patch transdermal Q24H PRN (Reason: Smoking Cessation) sennosides [senna] 8.6 mg tablet 17.2 mg PO DAILY PRN (Reason: Constipation) albuterol sulfate 90 mcg/actuation HFA aerosol inhaler 2 puff inhalation Q4-6H PRN (Reason: shortness of breath or wheezing) 30 Days Qty: 1 6RF bethanechol chloride 50 mg tablet 50 mg PO BID 90 Days Qty: 180 1RF terazosin 5 mg capsule 5 mg PO BEDTIME 90 Days Qty: 90 1RF Discharge Orders: Discharge Order (Routine); Ordered 09/02/23 Ordered By: Dale Kay Diet: Pureed Activity on Discharge: As tolerated Stand Alone Forms: Patient Portal Discharge page Care Plan Goals: Read below Health Concerns: Read below Plan of Treatment: Read below Assessment: Continue Augmentin as prescribed.
[2023-09-02] MEDS: Midodrine HCl 5 MG TABLET PO ×2 (08:32→13:21)
--- NOTE | 2023-09-02 10:59 | MHC.CLN ---
F/U PT WITH MODERATE MALNUTRITION DIET RX: 2GM NA PUREED WITH HT LIQ-APPROPRIATE WILL RE-START FORTIFIED ICE CREAM TID TO INCREASE KCALS MONITOR PO INTAKE AND ENCOURAGE SUPPLEMENT
--- NOTE | 2023-09-02 11:10 | MHC.SL.SWA ---
Speech Pathologist Impression: Risk of aspiraiton, oropharyngeal dysphagia Risk of Aspiration Due to: Neurological Condition Dysphasia Diet Status: Pt coughing and gasping for air after trials of nectar thick and honey thick liquids. Pt ate entire container of applesauce without difficulty. Pt downgraded to single consistency NDD1/Pudding thick. Liquid Consistency and Strategies for Safe Swallow: Liquid Intake Recommendation: Pudding Thick Liquid Intake Strategies: Small Sips Liquids by Teaspoon Only Solid Food Consistency: Dietary Recommendations: Pureed (NDD1) Additional Modifications to Solid Foods: Recommend MBSS to further evaluate extent of pt's dysphagia and to provide dietary recommendations. Oral Medication Intake: Crushed with Puree Please contact the pharmacy regarding appropriate crushable or liquid drug formulations that are available whenever modified delivery is recommended. Compensatory Strategies and Precautions to be Taken for Safe Swallow: Sitting Upright (90 deg) No Straw Liquids from Spoon Small Bites and Sips Rate of Ingestion Change Supervision While Eating and Drinking for Safe Swallow: Total Assistance (1:1) Swallowing Recommended Treatments: Compens. Strategy Educat. Recommendation for Speech: Inpatient Speech Therapy Frequency/Duration: M-F PRN College Physics Instructor Clinican/Clinical Fellow: No Supervisory Statement: I have reviewed and agree with the student/clinical fellow's documentation: N/A Speech Language Pathologist: Brook Luis M.A., CCC-INDUSTRIAL GAS FITTER
--- NOTE | 2023-09-02 11:11 | MHC.SLORD ---
Speech Language Pathology Order Status: MBSS is scheduled with Radiology today at 2:15pm.
[2023-09-02 11:38] VITALS: BP 137/89; PULSE 66; RESP 20; TEMP 36; O2SAT 95
--- NOTE | 2023-09-02 13:34 | MHC.CM.PN ---
Second IMM sent to guardian, Latrice Jaramillo 09/02/23, pt resides at [facility], [place] plan is to return there when medically stable. Clinical updates sent via [facility]. to follow to assist with DC plan.
[2023-09-02] MEDS: 0.9 % Sodium Chloride Flush 3 ML SYRINGE IVFLUSH (15:18)
[2023-09-02 15:37] VITALS: BP 130/92; PULSE 74; RESP 18; TEMP 36.2; O2SAT 96
--- NOTE | 2023-09-02 16:13 | P.PNNP_ITS ---
Subjective Subjective Date of Service: 09/02/23 Interval history: Seen and evaluated this morning more alert and interactive asking for diet no other overnight events Physical Exam 2 Vital Signs: Vital Signs: Last Vital Signs Temp 97.2 F 09/02/23 15:37 Pulse 74 09/02/23 15:37 Resp 18 09/02/23 15:37 BP 130/92 H 09/02/23 15:37 Pulse Ox 96 09/02/23 15:37 O2 Del Method Room Air 09/02/23 15:37 O2 Flow Rate 2 08/31/23 07:00 Oxygen Flow Rate 2 08/30/23 23:17 BMI result Body Mass Index 19.3 Const: General: ill appearing Neck: Neck: Yes supple Resp: Auscultation: clear to auscultation bilaterally Cardio: Palpation: no palpable S3 Heart sounds: no rubs GI: Palpation (GI): Soft to palpation Auscultation: normal bowel sounds Neuro: Motor exam (neuro): no asterixis Objective Data Labs 09/01/23 06:29 09/02/23 06:35 Labs: Laboratory Results - last 24 hr 08/31/23 09/02/23 05:19 06:35 Hold Purple Top SEE NOTE VBG O2 Saturation TNP Sodium 143 Potassium 3.8 Chloride 108 Carbon Dioxide 27 Anion Gap 12 BUN 21 H Creatinine 0.97 Estim Creat Clear Calc 50.3 Estimated GFR > 60 Random Glucose 88 Calcium 9.5 Microbiology Microbiology Results: Microbiology 08/28/23 12:41 Blood - Venous Blood Culture - Final No growth after 5 days. 08/28/23 11:53 Blood - Venous Blood Culture - Final No growth after 5 days. 08/30/23 00:17 Blood - Venous Blood Culture - Preliminary No growth after 48 hours. 08/30/23 00:17 Blood - Venous Blood Culture - Preliminary No growth after 48 hours. 08/28/23 Unknown Urine clean catch - Urine valdes top Urine Culture - Final Procedures Date of Service Date of Service: 09/02/23 Assessment & Plan Assessment and plan (1) Hypernatremia: Status: Acute (2) KELLY (acute kidney injury): Status: Acute Plan Hypernatremia due to free water deficit in a setting of KELLY; Probably associated with poor PO intake KELLY most likely due to hypoperfusion Possible ATN No obstruction based on USG At risk for ongoing renal injury while on Vanco Suggest Keep O > I Maintain SBP > 100 Avoid hypotension; Time Spent With Patient Time: Total time managing care of this patient today ____ minutes. Progress Note: Quality Stroke Does the patient have a stroke diagnosis?: No
--- NOTE | 2023-09-02 16:25 | MHC.SLORD ---
Speech Language Pathology Order Status: MBSS revealed gerardo aspiration with puree and honey thick consistencies. Pt is recommended NPO status. Notified Dr. Kay via [place] Message. Full report to follow.
[2023-09-02 20:00] VITALS: BP 147/90; PULSE 69; RESP 20; TEMP 36.2; O2SAT 94
[2023-09-02] MEDS: Midodrine HCl 2.5 MG TABLET PO (22:58)
[2023-09-03] VITALS (8 sets, daily range): BP systolic 134–155; BP diastolic 83–95; PULSE 51–68; RESP 16–20; TEMP 36.1–36.5; O2SAT 92–97
[2023-09-03] MEDS: Levothyroxine Sodium 112 MCG TABLET PO (04:59)
[2023-09-03] MEDS: Ampicillin Sodium/Sulbactam Na 3 GM in 0.9 % Sodium Chloride 100 ML IV ×4 (04:59→21:27)
[2023-09-03] MEDS: Dextrose 5 % 1,000 ML 100 ML IVCONT ×2 (05:10→19:15)
--- NOTE | 2023-09-03 08:58 | MHC.SL.IMP ---
Date of Plan of Treatment: 08/30/23 Onset of Symptoms/Illness: 08/29/23 Date Treatment Started: 08/30/23 Admitting Diagnosis: (1) Severe sepsis (2) Hypotension (3) Bradycardia (4) Acute UTI (5) Aspiration into airway (6) Dysphagia (7) KELLY (acute kidney injury) (8) Hypernatremia Primary Speech & Language Diagnosis: R13.12 Oropharyngeal Phase Dysphagia Reason for Today's Visit: 50397 Modified Barium Swallow Study Pre-evaluation Dietary Consistencies: Pureed (NDD1) Pre-evaluation Liquid Consistency: Pudding Thick Pre-evaluation Medication Administration: Crushed with Puree Medical History: Modified Barium Swallow Study Fluoroscopic Evaluation of Swallowing Function CPT Code 23037 Evaluation Year: 2023 Reason for Study: Pt displays overt s/s of aspiration at bedside. Referring Physician: Dale Kay MD Evaluating Clinician: Brook Luis MA, CCC-[employer] Study Number: 1 Patient Name: Mariusz Kirkland Status: Inpatient, Wheelchair Age: 73 Gender: Male Medical History Medical History COVID-19 vaccine series completed History of COVID-19 Resides in [facility] facility History of falling Personal history of traumatic brain injury Other specified intracranial injury without loss of consciousness, subsequent encounter Paralytic gait Benign prostatic hyperplasia without lower urinary tract symptoms Pain in left hip Primary generalized (osteo)arthritis Constipation, unspecified Impulse disorder, unspecified Trichotillomania Alcohol dependence, uncomplicated Hyperlipidemia, unspecified Hypothyroidism, unspecified Weakness Unspecified lack of coordination Muscle weakness (generalized) Age-related nuclear cataract, bilateral Unspecified abnormalities of gait and mobility Personal history of COVID-19 Repeated falls Lefort i fracture, initial encounter for closed fracture Unsteadiness on feet Other abnormalities of gait and mobility Dysphagia, oropharyngeal phase Paranoid schizophrenia Surgical History History of facial surgery Current (pre-evaluation) Intake/Diet: Route: PO Diet Grade: Puree Liquid Consistencies: No Liquids Pre-Study Functional Oral Intake Scale (FOIS): 4- Total oral intake of a single consistency Pain: None reported at time of study SUBJECTIVE: Pt is a 73 year old male brought to the ED after sustaining a fall with head strike and subsequent weakness. Workup revealed pt to be hyponatremic and his UA was positive for UTI. Pt was started on Zosyn and D5W and admitted to hospital medicine. Rapid response was called overnight 08/30 due to pt's worsening hypotension and bradycardia. Pt?s nurse also reported possible aspiration with meds earlier during the night, with pt?s chest x-ray showing evidence of acute aspiration. Pt transferred from [facility] tele to ICU, where he was seen by COMMERCIAL ATTACHE for a bedside dysphagia evaluation. Pt exhibited difficulty managing his own secretions and demonstrated significant coughing and throat clearing with limited PO trials, thus he remained NPO over the weekend. Pt has since weaned from high flow nasal cannula to Tony nasal cannula. Per MD, pt is more awake and alert and his condition has improved overall. When pt was re-evaluated by [employer]ER[employer]HE this morning, noted pt to clear his throat, cough, and gasp for air, especially with thickened liquid. Pt was recommended further assessment with an MBSS to evaluate the extent of his dysphagia and to provide dietary recommendations. Pt's history is significant for TBI, dysphagia, COPD, and paranoid schizophrenia. Pt is a LTC resident at [facility]. Nursing staff there report pt was on a pureed diet with mildly thick liquids prior to this hospitalization. Food and Liquid Trials: Oral Impairment: Lip Closure: Did not test Oral Impairment: Tongue Control During Bolus Hold: Did not test Oral Impairment: Bolus Preparation/Mastication: Did not test Oral Impairment: Bolus Transport/Lingual Motion: 3=Repetitive/disorganized tongue motion Oral Impairment: Oral Residue: 0=Complete oral clearance Oral Impairment:Initiation of Pharyngeal Swallow: 3=Bolus head in pyriforms Pharyngeal Impairment: Soft Palate Elevation: 0=No bolus between soft palate (SP)/pharyngeal wall (PW) Pharyngeal Impairment: Laryngeal Elevation: 2=Minimal superior movement of thyroid cartilage (see description) Pharyngeal Impairment: Anterior Hyoid Excursion: 1=Partial anterior movement Pharyngeal Impairment: Epiglottic Movement: 2=No inversion Pharyngeal Impairment: Laryngeal Vestibular Closure:: 2=None: No inversion Pharyngeal Impairment: Pharyngeal Stripping Wave: 1=Present: diminished Pharyngeal Impairment: Pharyngeal Contraction: Did not test Pharyngeal Impairment: Pharyngoesophageal Segment Openin=Partial distention/partial duration: partial obstruction of flow Pharyngeal Impairment: Tongue Base (TB) Retraction: 3=Wide column of contrast/air between TB and posterior PW Pharyngeal Impairment: Pharyngeal Residue: 2=Collection of residue within or on pharyngeal structures Pharyngeal Impairment: Esophageal Clearance Upright Position: Did not test Impressions and Recommendations OBJECTIVE: Time-out: performed at 14:30 Evaluation Start: 14:15; Stop: 14:20 Patient Positioning: Seated 70-90 degrees Viewing Planes: LATERAL ONLY Contrast: MBSImP? Standardized Protocol using commercially prepared, standardized Barium viscosities, including: Varibar? THIN HONEY (40% w/v, <800-1800 cps) MBSImP ID: [id number] MBSImP Results: Lip closure for intraoral bolus containment could not be assessed due to logistical reasons not related to physiologic impairment. Tongue control during bolus hold could not be assessed due to logistical reasons not related to physiologic impairment. Bolus preparation and mastication received the highest impairment score; solid not given due to patient safety concerns related to oral impairment. Bolus transport/lingual motion was with repetitive/disorganized motion of the tongue. Oral residue was not observed. There was complete oral clearance. Initiation of the pharyngeal swallow occurred when the bolus head was in the pyriform sinuses. Soft palate elevation resulted in no bolus between the soft palate and the pharyngeal wall. Laryngeal elevation was incomplete, as indicated through minimal superior movement of the thyroid cartilage with minimal approximation of the arytenoids to the epiglottic petiole. Anterior hyoid excursion demonstrated partial anterior movement. Epiglottic movement resulted in no inversion. Laryngeal vestibular closure was absent, resulting in a wide column of air/contrast within the laryngeal vestibule at the height of the swallow. Pharyngeal stripping wave was present, but diminished. Pharyngeal contraction could not be determined due to logistical reasons not related to physiologic impairment. Pharyngoesophageal segment opening demonstrated partial distension/partial duration, with partial obstruction of bolus flow. Tongue base retraction allowed a wide column of contrast or air between the retracted tongue base and the posterior pharyngeal wall. Pharyngeal residue was a collection of residue within or on pharyngeal structures. Esophageal clearance in the upright position could not be assessed due to logistical reasons not related to physiologic impairment. Oral Impairment Score: 9 (absence of score, component 1component 2) Pharyngeal Impairment Score: 14 (absence of score, component 13) Esophageal Impairment Score: --- (absence of score, component 17) Laryngeal Penetration and Aspiration: Aspiration was observed in today's study. Honey-thick Contrast entered the airway, passed below the vocal folds, and was ejected into the larynx or out of the airway. Honey-thick Contrast entered the airway, passed below the vocal folds, and was not ejected from the trachea despite effort. Honey-thick Contrast entered the airway, passed below the vocal folds, and no effort was made to eject. ASSESSMENT: MBSS was performed by the radiologist and the speech pathologist. Pt was seated upright in a wheelchair for lateral view only. Pt trialed puree and honey thick consistencies via teaspoon. Lingual motion for the transport of bolus was disorganized with repetitive tongue rocking motion, resulting in premature posterior escape of contrast, which collected in the valleculae and pyriform sinuses before a swallow trigger was initiated. Pt demonstrated overall good clearance of the oral cavity. Minimal superior movement of the thyroid cartilage with minimal approximation of the arytenoids to the epiglottic petiole. There was moderate pooling mostly in the valleculae and to a lesser degree in the pyriform sinuses. No epiglottic inversion and no laryngeal vestibular closure resulted in wide open airway. Spillage from the pyriforms resulted in gerardo aspiration both during and after the swallow on pureed and honey thick consistencies. Pt did not elicit a spontaneous cough. Pt at times cleared his throat, but did not always have this sensory response. This cleared some penetrated material, but was not consistent in preventing aspiration. Exam was discontinued for pt safety. Recommended Treatments: Compens. Strategy Educat., Base of Tongue Exercises, Gustatory Stimulation, Vocal Cord Adduction Exercises Recommendation for Speech Therapy: Inpatient Speech Therapy Speech Therapy through Rehab Facility Modified Barium Swallow Study - Inpatient Modified Barium Swallow Study - Outpatient Text Comment: Pt presents with severe oropharyngeal dysphagia. Pt demonstrated compromised airway protection with minimal laryngeal elevation and absent epiglottic inversion. Spillage from the pyriforms resulted in gerardo aspiration during the swallow and after a swallow was triggered. Pt did not elicit a spontaneous cough, but did clear his throat on command. This was not consistent in preventing aspiration. Exam was discontinued as pt would likely continue to aspirate. Based on objective observations made during this exam, safest recommendation is for pt to be NPO at this time. Recommend pt and his caregivers to discuss pt?s goals of care and options for nutritional intake with the medical team. Recommend precautions to reduce risk of microaspiration- Ensuring rigid daily oral care routine (at least 4x daily) and elevating head of bed at least 30 degrees. Recommend continue speech therapy for the treatment of dysphagia, further treatment goals pending goals of care discussion. Suggested Referrals: The patient might benefit from a referral to: Gastroenterology Nutrition Services To assess candidacy/ determine if alternative means of nutrition is a viable option for this pt. Ultimate decisions for nutritional intake is to be made by the patient, his caregiver/family, and his medical team with consideration of the totality of the patient, other concomitant conditions, and especially considering patient?s overall quality of life and advanced age. Therapy Recommendations: Therapy will be continued Senior Care Goals: ? The patient and/or family will participate in further education for swallowing goals. Short Term Goals: ? Education - The patient, caregiver will verbalize/demonstrate understanding of the results of this evaluation, the above recommendations, and the swallowing guidelines. Additional goals to follow. Frequency/Duration: M-F PRN Date Range for Service Requested: Timeline to reassess: 3 months Hedis Coordinator Clinician/Clinical Fellow: No Supervisory Statement: N/A Speech Language Pathologist: Brook Luis M.A., CCC-[employer]
[2023-09-03] MEDS: Midodrine HCl 2.5 MG TABLET PO (10:12)
--- NOTE | 2023-09-03 10:32 | MHC.SPEECHCO ---
Per RN, Pt NPO pending PEG placement. [employer] will continue to follow.
--- NOTE | 2023-09-03 11:03 | HO.PM.IMPN ---
Subjective Subjective Date of Service: 09/03/23 Interval History: no complaints, kept due to failed mbs, need for gtube Physical Exam Vital Signs: Vital Signs: Last Vital Signs Temp 97.5 F 09/03/23 08:00 Pulse 67 09/03/23 08:00 Resp 20 09/03/23 08:00 BP 140/83 H 09/03/23 08:00 Pulse Ox 94 09/03/23 08:00 O2 Del Method Room Air 09/03/23 08:00 O2 Flow Rate 2 08/31/23 07:00 Oxygen Flow Rate 2 08/30/23 23:17 BMI result Body Mass Index 19.3 Const: General: ill appearing Neck: Neck: Yes supple Resp: Auscultation: clear to auscultation bilaterally Cardio: Palpation: no palpable S3 Heart sounds: no rubs GI: Palpation (GI): Soft to palpation Auscultation: normal bowel sounds Neuro: Motor exam (neuro): no asterixis Objective Data Active Medications Acetaminophen (Acetaminophen 325 Mg Tablet) 650 mg PO Q6H PRN PRN Reason: Headache Artificial Tears (Artificial Tears 15 Ml Drops) 1 drop EYE-BOTH QID PRN PRN Reason: Dry Eyes Enoxaparin Sodium (Enoxaparin Sodium 30 Mg/0.3 Ml Syringe) 30 mg SUBCUT Q24H [facility] Last Admin: 09/01/23 17:59 Dose: 30 mg Documented By: NADJA Ampicillin Sodium/Sulbactam (Sodium 3 gm/ Sodium Chloride) 100 mls @ 200 mls/hr IV Q6H [facility] Last Admin: 09/03/23 10:15 Dose: 200 mls/hr Documented By: COURTNEY Dextrose (D5w) 1,000 mls @ 100 mls/hr IVCONT .Q10H [facility] Last Admin: 09/03/23 05:10 Dose: 100 mls/hr Documented By: THOMAS Levothyroxine Sodium (Levothyroxine Sodium 112 Mcg Tablet) 112 mcg PO DAILY@0600 [facility] Last Admin: 09/03/23 04:59 Dose: 112 mcg Documented By: THOMAS Midodrine (Midodrine Hcl 2.5 Mg Tablet) 2.5 mg PO BID [facility] Last Admin: 09/03/23 10:12 Dose: 2.5 mg Documented By: HO.PHANLYM Ondansetron HCl (Ondansetron Hcl 4 Mg/2 Ml Vial) 4 mg IVPUSH Q8H PRN PRN Reason: Nausea and Vomiting Sodium Chloride (0.9 % Sodium Chloride Flush 3 Ml Syringe) 3 ml IVFLUSH QSHIFT [facility] Last Admin: 09/03/23 09:13 Dose: Not Given Documented By: COURTNEY Non-Admin Reason: IV Running Labs 09/01/23 06:29 09/02/23 06:35 Microbiology Microbiology Results: Microbiology 08/28/23 12:41 Blood Culture - Final Blood - Venous No growth after 5 days. 08/28/23 11:53 Blood Culture - Final Blood - Venous No growth after 5 days. Assessment and Plan (1) Bradycardia: Status: Acute (2) Hypotension: Status: Acute (3) Aspiration into airway: Status: Acute (4) Dysphagia: Status: Acute (5) Swallowing problem: Status: Acute (6) KELLY (acute kidney injury): Status: Acute Plan 73M PMH?TBI, AAA s/p elective repair, COPD on prn home O2, hypothyroidism, HTN, HLD, BPH, and paranoid schizophrenia who presented to the ED from SNF for evaluation of generalized weakness with frequent falls. went to ICU for pressors for low BP. Acute Hypernatremia resolved Continue D5W at 100 mL/hr to replace free water Nephrology following Follow sodium Hypotension secondary to dehydration and decrease PO intake not due to sepsis resolved after boluses and Albumin with the need of pressors in ICU monitor BP Acute on chronic hypoxic respiratory failure secondary to aspiration pneumonia covered by Unasyn, Abx started 08/28/2023 now on room air MBS showed aspiratoin on all consistencies plan for Gtube today Aspiration precautions KELLY resolved Follow BMP Hypothermia resolved Diet/Protein calorie malnutrition nutrition eval for tube feeds once in and ready to use COPD Continue home inhalers Will be given DuoNebs Hypothyroidism Continue levothyroxine Hx of TBI, paranoid schizophrenia stable Full Code DVT Prophylaxis: Lovenox reason for continued hospitalization:gtube today Quality Stroke Does the patient have a stroke diagnosis?: No VTE Prior VTE?: No VTE Risk Level:: Medical - moderate - high VTE Device Contraindication: Treatment Not Indicated VTE Drug Contraindication: N/A - Med Ordered
--- NOTE | 2023-09-03 14:37 | MHC.CM.PN ---
EMR REVIEWED, PLAN FOR PEG TUBE PLACEMENT TODAY, SNF UPDATED VIA [facility], ANTIC NO DC PRIOR TO SATURDAY PT WILL NEED TO TITRATE TUBE NUTRITION PRIOR TO DC, CM WILL CONT TO FOLLOW DC NEEDS.
[2023-09-03] MEDS: 0.9 % Sodium Chloride Flush 3 ML SYRINGE IVFLUSH (16:57)
[2023-09-04] VITALS (7 sets, daily range): BP systolic 120–167; BP diastolic 66–91; PULSE 64–100; RESP 15–18; TEMP 36.1–37.1; O2SAT 92–97; BMI 19.3
[2023-09-04] MEDS: Ampicillin Sodium/Sulbactam Na 3 GM in 0.9 % Sodium Chloride 100 ML IV ×4 (03:37→23:07)
[2023-09-04] MEDS: Levothyroxine Sodium 112 MCG TABLET PO (05:55)
[2023-09-04 07:35] LABS: Hematocrit 36.8 % (42.0-52.0); Hemoglobin 11.4 g/dl (14.0-18.0); Mean Corpuscular Hemoglobin 26.2 pg (27.0-33.0); Mean Corpuscular Volume 84.6 fL (80.0-98.0); Mean Platelet Volume 10.5 fL (9.4-12.4); Platelet Count 127 X10*3/uL (160-400); Red Blood Count 4.35 X10*6/uL (4.60-5.80); Red Cell Distribution Width 14.7 % (11.0-16.0); White Blood Count 6.9 X10*3/uL (4.8-10.8)
[2023-09-04 07:39] LABS: Anion Gap 11 (12-20); Blood Urea Nitrogen 13 mg/dL (9-16); Calcium 9.3 mg/dL (8.4-10.2); Carbon Dioxide 25 mmol/L (22-29); Chloride 109 mmol/L (96-108); Creatinine Clr Calc Pharmacy 58.1; Estimated Glomerular Filt Rate > 60; Glucose Fasting 75 mg/dL (60-99); Potassium 3.7 mmol/L (3.3-5.1); Sodium 141 mmol/L (135-145)
[2023-09-04] MEDS: Midodrine HCl 2.5 MG TABLET PO ×2 (09:00→23:07)
[2023-09-04] MEDS: 0.9 % Sodium Chloride Flush 3 ML SYRINGE IVFLUSH ×2 (09:00→16:42)
--- NOTE | 2023-09-04 10:49 | MHC.CLN ---
F/U PT IS S/P MBS PEG PLACED YESTERDAY TO START TUBE FEEDINGS RECOMMEND JEVITY 1.0 TF AT MAX GOAL RATE 60ML/HR WITH 120ML FREE WATER FLUSHES Q 8 HRS TO PROVIDE 1526KCALS (29KCALS/KG), 64G PROTEIN (1.2G/KG), 1562ML TOTAL WATER FROM FORMULA AND FLUSHES (30ML/KG) START FORMULA AT 20ML/HR AND INCREASE BY 10ML Q 4 HRS UNTIL MAX GOAL IS ACHIEVED MONITOR TOLERANCE, RESIDUALS AND LYTES SEE ALSO FULL CLINICAL NUTRITION ASSESSMENT
--- NOTE | 2023-09-04 13:32 | MHC.CM.PN ---
EMR REVIEWED, PEG TUBE PLACED YESTERDAY 09/03, TUBE NUTRITION TO START W/JEVITY 1.0, CM HAS CALLED AND LEFT MESSAGE FOR IR NURSE THERE IS NO NSG OR INSERTION REPORT IN EXPANSE, DIETARY NOTE W/GOAL FOR TUBE NUTRITION SENT TO SNF, CM WILL CONT TO FOLLOW DC NEEDS.
--- NOTE | 2023-09-04 15:14 | MHC.SLORD ---
Speech Language Pathology Order Status: Pt w/ recent PEG placement, tube feeds starting today. PARALLEL COMPUTING SOFTWARE ENGINEER to continue to follow and determine plan of care and PARALLEL COMPUTING SOFTWARE ENGINEER needs following start of tube feeds.
--- NOTE | 2023-09-04 15:18 | HO.RADPN ---
RADIOLOGY Narrative Narrative: Procedure Note: Percutaneous Gastrostomy tube Indications: Aspiration risk, failed MBS Events: 16 fr g tube placed under fluoroscopy. No immediate complications. Tube may be used 09/04/23 Josias LUTHER/Dr. Christina Interventional Radiology
--- NOTE | 2023-09-04 17:09 | PM.EVENT ---
Event Note Date of Service: 09/04/23 Event Note: noted rash on arms and neck after feeds started. will hold feeds, benadryl prn Time Spent With Patient Time: Total time managing care of this patient today ____ minutes.
[2023-09-04] MEDS: Dextrose 5 % and 0.45 % NaCl 1,000 ML 80 ML IVCONT (17:40)
--- NOTE | 2023-09-04 17:46 | PC.NURSE ---
Patient started on Jevity Tube feed at 1500. Tube feeding is new for patient, patient was tolerating well, no complaints. 1630 checked on patient to hang medications and noticed new rash forming on patients neck, back and R forearm. MD notified that this was new and was not present before starting tube feed. Per MD hold tube feed and start fluids. Will monitor skin closely. Patient does not complain of any itching.
[2023-09-05 03:26] VITALS: BP 131/82; PULSE 65; RESP 18; TEMP 36.2; O2SAT 95
[2023-09-05] MEDS: Ampicillin Sodium/Sulbactam Na 3 GM in 0.9 % Sodium Chloride 100 ML IV ×4 (05:45→21:20)
[2023-09-05] MEDS: Dextrose 5 % and 0.45 % NaCl 1,000 ML 80 ML IVCONT (06:03)
[2023-09-05] MEDS: Levothyroxine Sodium 112 MCG TABLET PO (06:07)
[2023-09-05 07:07] VITALS: BP 120/73; PULSE 65; RESP 18; TEMP 36.3; O2SAT 95
[2023-09-05] MEDS: Midodrine HCl 2.5 MG TABLET PO ×2 (08:39→21:18)
--- NOTE | 2023-09-05 09:17 | P.PNIM_ITS ---
Subjective Subjective Date of Service: 09/05/23 Interval History: had rash with jevity Physical Exam 2 Vital Signs: Vital Signs: Last Vital Signs Temp 97.4 F 09/05/23 07:07 Pulse 65 09/05/23 07:07 Resp 18 09/05/23 07:07 BP 120/73 09/05/23 07:07 Pulse Ox 95 09/05/23 07:07 O2 Del Method Room Air 09/05/23 07:07 O2 Flow Rate 2 08/31/23 07:00 Oxygen Flow Rate 2 08/30/23 23:17 BMI result Body Mass Index 19.3 rash on right [place] neck Const: General: ill appearing Neck: Neck: Yes supple Resp: Auscultation: clear to auscultation bilaterally Cardio: Palpation: no palpable S3 Heart sounds: no rubs GI: Palpation (GI): Soft to palpation Auscultation: normal bowel sounds Neuro: Motor exam (neuro): no asterixis Objective Data Active Medications Acetaminophen (Acetaminophen 325 Mg Tablet) 650 mg PO Q6H PRN PRN Reason: Headache Artificial Tears (Artificial Tears 15 Ml Drops) 1 drop EYE-BOTH QID PRN PRN Reason: Dry Eyes Diphenhydramine HCl (Diphenhydramine Hcl 50 Mg/Ml Vial) 25 mg IVPUSH Q6H PRN PRN Reason: Rash Enoxaparin Sodium (Enoxaparin Sodium 30 Mg/0.3 Ml Syringe) 30 mg SUBCUT Q24H [facility] Last Admin: 09/01/23 17:59 Dose: 30 mg Documented By: NADJA Ampicillin Sodium/Sulbactam (Sodium 3 gm/ Sodium Chloride) 100 mls @ 200 mls/hr IV Q6H [facility] Last Infusion: 09/05/23 09:14 Dose: Infused Documented By: MATHEW Dextrose/Sodium Chloride (D51/2ns) 1,000 mls @ 80 mls/hr IVCONT .[id number] [facility] Last Admin: 09/05/23 06:03 Dose: 80 mls/hr Documented By: MAGNOLIA Levothyroxine Sodium (Levothyroxine Sodium 112 Mcg Tablet) 112 mcg PO DAILY@0600 [facility] Last Admin: 09/05/23 06:07 Dose: 112 mcg Documented By: MAGNOLIA Midodrine (Midodrine Hcl 2.5 Mg Tablet) 2.5 mg PO BID [facility] Last Admin: 09/05/23 08:39 Dose: 2.5 mg Documented By: MATHEW Ondansetron HCl (Ondansetron Hcl 4 Mg/2 Ml Vial) 4 mg IVPUSH Q8H PRN PRN Reason: Nausea and Vomiting Sodium Chloride (0.9 % Sodium Chloride Flush 3 Ml Syringe) 3 ml IVFLUSH QSHIFT [facility] Last Admin: 09/05/23 08:34 Dose: Not Given Documented By: MATHEW Non-Admin Reason: IV Running Labs 09/04/23 06:39 09/04/23 06:39 Assessment and Plan (1) Bradycardia: Status: Acute (2) Hypotension: Status: Acute (3) Aspiration into airway: Status: Acute (4) Dysphagia: Status: Acute (5) Swallowing problem: Status: Acute (6) KELLY (acute kidney injury): Status: Acute Plan 73M PMH?TBI, AAA s/p elective repair, COPD on prn home O2, hypothyroidism, HTN, HLD, BPH, and paranoid schizophrenia who presented to the ED from SNF for evaluation of generalized weakness with frequent falls. went to ICU for pressors for low BP. Acute Hypernatremia resolved Hypotension secondary to dehydration and decrease PO intake not due to sepsis resolved after boluses and Albumin with the need of pressors in ICU monitor BP Acute on chronic hypoxic respiratory failure secondary to aspiration pneumonia covered by Unasyn, Abx started 08/28/2023 now on room air MBS showed aspiratoin on all consistencies s/p gtube - started jevity, but then had rash appear, nutrition follow up for new feed recs Aspiration precautions KELLY resolved Follow BMP Hypothermia resolved Diet/Protein calorie malnutrition tube feeds COPD Continue home inhalers Will be given DuoNebs Hypothyroidism Continue levothyroxine Hx of TBI, paranoid schizophrenia stable Full Code DVT Prophylaxis: Lovenox reason for continued hospitalization:awaiting tube feed tolerance Quality Stroke Does the patient have a stroke diagnosis?: No VTE Prior VTE?: No VTE Risk Level:: Medical - moderate - high VTE Device Contraindication: Treatment Not Indicated VTE Drug Contraindication: N/A - Med Ordered
--- NOTE | 2023-09-05 09:54 | MHC.CLN ---
F/U STARTED TUBE FEEDINGS YESTERDAY PT DEVELOPED RASH SHORTLY AFTER START OF NEW TF TF HELD AND NEW FORMULA REQUESTED RECOMMEND OSMOLITE 1.5 TF AT MAX GOAL RATE 45ML/HR WITH 240ML FREE WATER FLUSHES Q 6 HRS TO PROVIDE 1620KCALS (31KCALS/KG), 68G PROTEIN (1.3G/KG), 1783ML TOTAL WATER FROM FORMULA AND FLUSHES (34ML/KG) START FORMULA AT 20ML/HR AND INCREASE BY 10ML Q 4 HRS UNTIL MAX GOAL IS ACHIEVED MONITOR TOLERANCE, RESIDUALS AND LYTES
[2023-09-05 11:13] VITALS: BP 124/83; PULSE 62; RESP 18; TEMP 36.4; O2SAT 94
[2023-09-05 11:44] LABS: Glucose, Whole Blood 97 mg/dL (60-115)
[2023-09-05 15:27] VITALS: BP 133/93; PULSE 64; RESP 18; TEMP 36.5; O2SAT 95
[2023-09-05] MEDS: 0.9 % Sodium Chloride Flush 3 ML SYRINGE IVFLUSH ×2 (16:24→21:23)
[2023-09-05 16:35] LABS: Glucose, Whole Blood 120 mg/dL (60-115)
[2023-09-05 19:51] VITALS: BP 136/91; PULSE 72; RESP 20; TEMP 36.4; O2SAT 95
[2023-09-05] MEDS: Acetaminophen 325 MG TABLET 650 MG PO (21:19)
[2023-09-05 23:18] VITALS: BP 128/82; PULSE 61; RESP 20; TEMP 36.2; O2SAT 94
[2023-09-06 03:01] VITALS: BP 127/83; PULSE 71; RESP 20; TEMP 35.9; O2SAT 95
[2023-09-06] MEDS: Ampicillin Sodium/Sulbactam Na 3 GM in 0.9 % Sodium Chloride 100 ML IV ×2 (04:36→10:14)
[2023-09-06] MEDS: Levothyroxine Sodium 112 MCG TABLET PO (05:36)
[2023-09-06 07:16] LABS: Hematocrit 35.6 % (42.0-52.0); Hemoglobin 11.2 g/dl (14.0-18.0); Mean Corpuscular HGB Conc 31.5 g/dl (31.0-36.0); Mean Corpuscular Hemoglobin 26.4 pg (27.0-33.0); Mean Platelet Volume 11.1 fL (9.4-12.4); Platelet Count 166 X10*3/uL (160-400); Red Blood Count 4.24 X10*6/uL (4.60-5.80); White Blood Count 6.5 X10*3/uL (4.8-10.8)
[2023-09-06 07:18] LABS: Anion Gap 10 (12-20); Blood Urea Nitrogen 19 mg/dL (9-16); Calcium 8.9 mg/dL (8.4-10.2); Carbon Dioxide 25 mmol/L (22-29); Chloride 108 mmol/L (96-108); Creatinine Clr Calc Pharmacy 53.6; Estimated Glomerular Filt Rate > 60; Glucose Fasting 83 mg/dL (60-99); Potassium 4.2 mmol/L (3.3-5.1); Sodium 139 mmol/L (135-145)
[2023-09-06 07:44] VITALS: BP 119/80; PULSE 63; RESP 16; TEMP 36.6; O2SAT 93
--- NOTE | 2023-09-06 09:46 | P.DS_ITS ---
DS: Providers Provider Date of Service: 09/06/23 Date of admission: 08/28/23 17:47 Primary care physician: Jeffrey Delatorre DO Consults: 08/28/23 15:23 Consult to Nephrology Stat Consulting Provider: William Harden Reason for consultation: kelly, hypernatremia 08/30/23 08:09 Consult to Cardiology Routine Consulting Provider: [facility] Reason for consultation: Symptomatic bradycardia Has provider been notified: No DS: Diagnosis Discharge Diagnosis (1) Bradycardia: Status: Acute (2) Hypotension: Status: Acute (3) Aspiration into airway: Status: Acute (4) Dysphagia: Status: Acute (5) Swallowing problem: Status: Acute (6) KELLY (acute kidney injury): Status: Acute DS: Summary Hospital Course Hospital Course: Admission note HPI Pt is a 73-year-old male with a PMH significant for?TBI, AAA s/p elective repair, COPD on prn home O2, hypothyroidism, HTN, HLD, BPH, and paranoid schizophrenia who presents to the ED from SNF for evaluation of generalized weakness with frequent falls. Pt is a resident of [facility] and has had progressively worsening physical decompensation with frequent falls with head strike for the past few days. Patient is not on blood thinners, and it is unclear whether there was any loss of consciousness. Pt is alert and oriented to self only and is thus incapable of providing accurate HPI, which is instead obtained from chart and provider review. Patient initially presented to the ED agitated, nonverbal, and with altered mental status, but mentation improved during the course of treatment. EMS found patient hypoxic, satting at 83% on RA. Patient has a history of COPD, emphysema, and hx of acute hypoxic episodes and is on prn home O2. Pt himself offers no acute medical complaints but pt is AOx1 and a poor historian. In the ED was satting at 90% on 4 L NC, otherwise initial vitals all WNL. Repeat temperature found to be 93.5 rectally. Labs were significant for WBC 1.3, sodium 159, chloride 123, BUN 49, creatinine 1.48, alk-phos 130. UA positive for UTI. CT of head found extensive chronic changes with probable old right temporal lobe infarct, but no acute fracture or acute intracranial hemorrhage. ?CT of cervical spine found no acute fracture or posttraumatic spinal subluxation, but did show chronic advanced multilevel degenerative spondylolysis and at least moderate canal stenosis. CTA of chest found no evidence of pulmonary embolism, but did show emphysema and airway disease with bronchial wall thickening and increased peribronchial attenuation, suggestive of either infectious, inflammatory, or neoplastic processes. Pt was treated with DuoNeb, Zosyn, IVF, midazolam, and started on D5W. Pt will be admitted to the hospital for treatment and further evaluation of UTI, KELLY, and hypernatremia. Hospital course Admitted for treatment of the following: # Acute Hypernatremia Presented with sodium of 160 on presentation. treated with IV D5W with fair response over the course of hospital stay as it went down gradually to 143. followed by nephrology team while inpatient. # Hypotension Believed to be secondary to dehydration and decrease PO intake. required boluses and Albumin with the need of pressors in ICU breif stay. blood pressure improved back to normal range. # Acute on chronic hypoxic respiratory failure secondary to aspiration pneumonia recovered well as he weaned off O2 as he was covered by [employer]. Aspiration precautions and gtube feeds. blood cultures remained negative. Titrate supplemental O2 >92, wean as tolerated # KELLY resolved with treatment with IV fluids. likely a result of hypotension. 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 Diet/Protein calorie malnutrition Patient with TBI, dysphagia, dysarthria Time Attestation Discharge coordination time: Greater than 30 minutes Quality: Safe Use of Opioids Does Pt have an Active Cancer Diagnosis on the Problem List?: No Quality: Stroke Does the patient have a stroke diagnosis?: No Physical Exam Vital Signs: Vital Signs: Last Vital Signs Temp 97.8 F 09/06/23 07:44 Pulse 63 09/06/23 07:44 Resp 16 09/06/23 07:44 BP 119/80 09/06/23 07:44 Pulse Ox 93 09/06/23 07:44 O2 Del Method Room Air 09/06/23 07:44 O2 Flow Rate 2 08/31/23 07:00 Oxygen Flow Rate 2 08/30/23 23:17 BMI result Body Mass Index 19.3 rash on right [place] neck Const: General: ill appearing Neck: Neck: Yes supple Resp: Auscultation: clear to auscultation bilaterally Cardio: Palpation: no palpable S3 Heart sounds: no rubs GI: Palpation (GI): Soft to palpation Auscultation: normal bowel sounds Neuro: Motor exam (neuro): no asterixis DS: Data Data Completed and Pending Completed studies during hospitalization [Text1]: Procedures Restriction of Abdominal Aorta with Intraluminal Device, Percutaneous Approach (12/24/22) Labs on day of discharge: Laboratory Results - last 24 hr 09/05/23 09/05/23 09/06/23 11:39 16:29 06:13 WBC 6.5 RBC 4.24 L Hgb 11.2 L Hct 35.6 L MCV 84.0 MCH 26.4 L MCHC 31.5 RDW 15.0 Plt Count 166 D MPV 11.1 Absolute Nucleated RBC 0.000 Nucleated RBC % (auto) 0.0 Sodium 139 Potassium 4.2 Chloride 108 Carbon Dioxide 25 Anion Gap 10 L BUN 19 H Creatinine 0.91 Estim Creat Clear Calc 53.6 Estimated GFR > 60 POC Glucose 97 120 H Fasting Glucose 83 Calcium 8.9 Discharge Plan Discharge Anticipated Discharge Date/Time: 09/02/23 08:21 Patient Disposition: Xfer [facility] Discharge Diagnosis: Sepsis , aspiration pneumonia Referrals: Jeffrey Delatorre DO [Primary Care Provider] - 1 Week Discharge Medications: New amoxicillin-pot clavulanate 400-57 mg/5 mL suspension for reconstitution 10 ml PO BID Qty: 100 0RF Continued lactulose 10 gram/15 mL solution 15 ml PO BID propranolol 10 mg tablet 10 mg PO BID simvastatin 40 mg tablet 40 mg PO BEDTIME levothyroxine 112 mcg tablet 112 mcg PO DAILY bisacodyl [Dulcolax (bisacodyl)] 10 mg suppository 10 mg SC DAILY PRN (Reason: Constipation) acetaminophen 325 mg capsule 650 mg PO Q6H PRN (Reason: Pain) Fleet Enema 19-7 gram/118 mL enema 118 ml SC DAILY PRN (Reason: Constipation) polyvinyl alcohol [Artificial Tears (polyvin alc)] 1.4 % drops 1 drp ophthalmic (eye) TID-QID PRN (Reason: Dry Eyes) nicotine 7 mg/24 hr patch 24 hour 1 patch transdermal Q24H PRN (Reason: Smoking Cessation) sennosides [senna] 8.6 mg tablet 17.2 mg PO DAILY PRN (Reason: Constipation) albuterol sulfate 90 mcg/actuation HFA aerosol inhaler 2 puff inhalation Q4-6H PRN (Reason: shortness of breath or wheezing) 30 Days Qty: 1 6RF bethanechol chloride 50 mg tablet 50 mg PO BID 90 Days Qty: 180 1RF terazosin 5 mg capsule 5 mg PO BEDTIME 90 Days Qty: 90 1RF Discontinued perphenazine 4 mg tablet 8 mg PO BID diazepam 2 mg tablet 3 mg PO BID Discharge Orders: Discharge Order (Routine); Ordered 09/06/23 Ordered By: Pk Roque Diet: gtube Activity on Discharge: As tolerated Stand Alone Forms: Patient Portal Discharge page Care Plan Goals: Read below Health Concerns: Read below Plan of Treatment: osmolite 1.5, 24hrs, 45cc/hr, 2 240cc free water q6h ? Assessment: Continue Augmentin as prescribed.
[2023-09-06] MEDS: Midodrine HCl 2.5 MG TABLET PO (09:59)
[2023-09-06] MEDS: 0.9 % Sodium Chloride Flush 3 ML SYRINGE IVFLUSH (10:10)
--- NOTE | 2023-09-06 10:29 | MHC.CM.PN ---
Addendum entered by Nilda Bustamante RN 09/06/23 12:09: RAYA BANERJEEAARON NOT ANSWERING VIA [facility], CM CONTACTED FAC[facility] AND SPOKE W/KARINA THE DON TO SET UP DC, KARINA REQUESTING EXTRA TUBE FEED TO GET THROUGH [facility] , [employer] NOTIFIED AND HAS BROUGHT EXTRA JUGS OF [employer] TO SEND W/PT, JAI REQUESTING EARLIER THAN 3:30 TRANSPORT, [facility] WILL ATTEMPT TO TRANSPORT AT 2PM, JAI COLLINS AWARE. Addendum entered by Nilda Bustamante RN 09/06/23 10:31: PT CONTACTED GUARDIAN RITCHIE DARA AT 10:25AM AT NUMBER ON FILE, RITCHIE AGREEABLE TO DC PLAN AND IMM WILL BE SENT CERTIFIED MAIL TO P.O. BOX ON FILE. Original Note: PT TO BE MEDICALLY CLEARED FOR DC BACK TO LTC AT [facility] W/2 DAY SUPPLY OF OSMELITE, [facility] FOR BLS TRANSPORT
--- NOTE | 2023-09-06 11:08 | MHC.CLN ---
F/U REVIEWED LABS PT RECEIVING OSMOLITE 1.5 TF AT MAX GOAL RATE 45ML/HR WITH 240ML FREE WATER FLUSHES Q 6 HRS PROVIDES 1620KCALS (31KCALS/KG), 68G PROTEIN (1.3G/KG), 1783ML TOTAL WATER FROM FORMULA AND FLUSHES (34ML/KG) PT PENDING D/C TO SNF TODAY SPOKE WITH CM-GIVEN 2 1L BOTTLE OF OSMOLITE 1.5 FOR WEEKEND SUPPLY CONTINUE TO MONITOR TOLERANCE, RESIDUALS AND LYTES
[2023-09-06 11:22] VITALS: BP 130/71; PULSE 63; RESP 16; TEMP 36.6; O2SAT 95
== END 2023-09-06 13:20 | disposition skilled nursing facility (03) | DRG 871 ==
LOC: HO.ED 13:20 → HO.EDOVER 17:56 → HO.IMC 19:09 → HO.ICU 08-30 00:13 → HO.IMC 08-31 12:47
PROVIDERS: Internal Medicine; Internal Medicine Pulmonary Disease; Physician Assistant; Radiology Vascular & Interventional Radiology; Registered Nurse Community Health; Student in an Organized Health Care Education/Training Program; Admitting Provider Student in an Organized Health Care Education/Training Program; Emergency Provider Emergency Medicine; PCP Hospitalist; Visit Provider Internal Medicine
DX: A41.9 Sepsis, unspecified organism (principal); G92.8 Other toxic encephalopathy; J69.0 Pneumonitis due to inhalation of food and vomit; J96.21 Acute and chronic respiratory failure with hypoxia; F20.0 Paranoid schizophrenia; N39.0 Urinary tract infection, site not specified; E87.0 Hyperosmolality and hypernatremia; E44.0 Moderate protein-calorie malnutrition; Z68.1 Body mass index [BMI] 19.9 or less, adult; N17.9 Acute kidney failure, unspecified; F10.20 Alcohol dependence, uncomplicated; R00.1 Bradycardia, unspecified; R65.20 Severe sepsis without septic shock; L27.1 Localized skin eruption due to drugs and medicaments taken internally; T50.905A Adverse effect of unspecified drugs, medicaments and biological substances, initial encounter; R13.10 Dysphagia, unspecified; E86.0 Dehydration; I95.9 Hypotension, unspecified; J43.9 Emphysema, unspecified; E03.9 Hypothyroidism, unspecified; R68.0 Hypothermia, not associated with low environmental temperature; R29.6 Repeated falls; Z20.822 Contact with and (suspected) exposure to COVID-19; Z87.820 Personal history of traumatic brain injury; Z79.890 Hormone replacement therapy; Z79.899 Other long term (current) drug therapy
CPT/HCPCS: 36415; 49440; 70450; 71045; 71275; 72125; 74230; 76775; 80048; 80053; 81001; 82040; 82140; 82803; 82947; 83605; 83735; 83880; 83930; 83935; 84100; 84439; 84443; 84484; 85025; 85027; 85610; 87040; 87086; 87633; 92526; 92610; 92611; 93005; 94640; 94799; 99152; 99153; 99285; C1725; C1769; J0295; J1265; J1650; J1940; J2250; J2543; J3370; J3371; J3480; J7120; P9047; Q9967

== ENCOUNTER → 2023-08-28 11:59 | Outpatient (BNV) | payer MEDICARE, MEDICAID, SELFPAY | PROVIDERS: Emergency Provider Emergency Medicine; PCP Hospitalist; Visit Provider Internal Medicine Hypertension Specialist | DX: N17.9 Acute kidney failure, unspecified (principal); E87.0 Hyperosmolality and hypernatremia | CPT/HCPCS: 99223; 99231; 99499 ==

== ENCOUNTER 2023-08-28 17:47 | Outpatient (BNV) | payer MEDICARE, MEDICAID, SELFPAY | END 2023-08-30 09:24 | PROVIDERS: Admitting Provider Student in an Organized Health Care Education/Training Program; Emergency Provider Emergency Medicine; PCP Hospitalist; Visit Provider Internal Medicine Cardiovascular Disease | DX: R00.1 Bradycardia, unspecified (principal) | CPT/HCPCS: 93010 ==

== ENCOUNTER 2023-08-28 17:47 | Outpatient (BNV) | payer MEDICARE, MEDICAID, SELFPAY | END 2023-09-02 14:15 | PROVIDERS: Admitting Provider Student in an Organized Health Care Education/Training Program; Emergency Provider Emergency Medicine; PCP Hospitalist; Visit Provider Radiology Diagnostic Radiology | DX: R63.39 Other feeding difficulties (principal) | CPT/HCPCS: 49440; 74230 ==

== ENCOUNTER → 2023-08-28 17:47 | Outpatient (BNV) | payer MEDICARE, MEDICAID, SELFPAY | PROVIDERS: Admitting Provider Student in an Organized Health Care Education/Training Program; Emergency Provider Emergency Medicine; PCP Hospitalist; Visit Provider Student in an Organized Health Care Education/Training Program | DX: N17.9 Acute kidney failure, unspecified (principal); R00.1 Bradycardia, unspecified; I95.9 Hypotension, unspecified; T17.908A Unspecified foreign body in respiratory tract, part unspecified causing other injury, initial encounter; R13.10 Dysphagia, unspecified | CPT/HCPCS: 99223; 99233; 99239; 99499 ==

== ENCOUNTER → 2023-08-28 17:47 | Outpatient (BNV) | payer MEDICARE, MEDICAID, SELFPAY | PROVIDERS: Admitting Provider Student in an Organized Health Care Education/Training Program; Emergency Provider Emergency Medicine; PCP Hospitalist; Visit Provider Internal Medicine Cardiovascular Disease | DX: R00.1 Bradycardia, unspecified (principal) | CPT/HCPCS: 99222; 99232 ==

== ENCOUNTER → 2023-08-28 17:47 | Outpatient (BNV) | payer MEDICARE, MEDICAID, SELFPAY | PROVIDERS: Admitting Provider Student in an Organized Health Care Education/Training Program; Emergency Provider Emergency Medicine; PCP Hospitalist; Visit Provider Registered Nurse Community Health | DX: A41.9 Sepsis, unspecified organism (principal); R65.20 Severe sepsis without septic shock; I95.9 Hypotension, unspecified; R00.1 Bradycardia, unspecified; N39.0 Urinary tract infection, site not specified; T17.908A Unspecified foreign body in respiratory tract, part unspecified causing other injury, initial encounter; R13.10 Dysphagia, unspecified; N17.9 Acute kidney failure, unspecified; E87.0 Hyperosmolality and hypernatremia | CPT/HCPCS: 99291 ==

== ENCOUNTER → 2023-08-28 17:47 | Outpatient (BNV) | payer MEDICARE, MEDICAID, SELFPAY | PROVIDERS: Admitting Provider Student in an Organized Health Care Education/Training Program; Emergency Provider Emergency Medicine; PCP Hospitalist; Visit Provider Internal Medicine Pulmonary Disease | DX: T17.908A Unspecified foreign body in respiratory tract, part unspecified causing other injury, initial encounter (principal); J43.9 Emphysema, unspecified; F20.0 Paranoid schizophrenia; F10.20 Alcohol dependence, uncomplicated; Z86.79 Personal history of other diseases of the circulatory system; Z87.820 Personal history of traumatic brain injury | CPT/HCPCS: 99232 ==

== ENCOUNTER 2023-09-30 15:14 | Outpatient (REF) | payer MEDICARE, MEDICAID, SELFPAY ==
--- NOTE | ~2023-09-30 | CT_ITS ---
STUDY PERFORMED: CTA ABDOMEN AND PELVIS WITHOUT AND WITH CONTRAST HISTORY: Abdominal aortic aneurysm, status post endograft repair DESCRIPTION: Routine abdomen and pelvis CTA protocol with contrast was performed. 85 mL of Omnipaque 350 was administered. 3D POSTPROCESSING: Multiple 3-D angiographic images were processed from the initial data set by the senior cytotechnologist at the modality workstation under concurrent physician supervision. DOSE LOWERING TECHNIQUES: This CT examination was performed using dose optimization techniques as appropriate, variously including the following: - Automated exposure control - Adjustment of mA and/or kV according to patient size (this includes techniques or standardized protocols for targeted exams where dose is matched to indication/reason for exam; i.e. extremities or head) - Use of iterative reconstruction technique DLP: 185 mGycm. COMPARISON: CTA from 04/01/2023 FINDINGS: VASCULAR: ABDOMINAL AORTA: Fusiform infrarenal abdominal aortic aneurysm is again seen now with abdominal aortic to bilateral common iliac artery stent graft. Stent graft is patent with moderate mural thrombus within the stent segment. On the axial images, aneurysm sac measures 8.1 x 6.2 cm, previously measuring 8.5 x 6.3 cm. No evidence of endoleak on the arterial phase images. RIGHT LOWER EXTREMITY: Common iliac, external iliac, internal iliac and visualized femoral arteries are patent and normal in caliber. The scattered atherosclerotic wall calcifications are present.. LEFT LOWER EXTREMITY: Common iliac, external iliac, internal iliac and visualized femoral arteries are patent and normal in caliber. The scattered atherosclerotic wall calcifications are present.. 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 The superior mesenteric artery is patent. Inferior mesenteric artery is occluded at the aneurysm with reconstituted flow in the distal branches. RENAL ARTERIES: There is a moderate stenosis of the ostium of the left renal artery. The right artery is patent. NONVASCULAR: Lung Bases: Emphysematous changes seen in the lung bases. Liver, Gallbladder and Biliary Tree: The liver is normal in size, shape, and attenuation. Stable simple cyst seen in the left lobe of the liver. No biliary ductal dilatation is present. The gallbladder is unremarkable with no evidence of radiopaque gallstones, gallbladder wall thickening, or obvious pericholecystic inflammatory changes. Pancreas: Unremarkable. Spleen: Unremarkable. Adrenal Glands: Unremarkable. Kidneys and Ureters: The kidneys are normal in size, shape, and attenuation. No hydronephrosis, hydroureter, or calculi seen. No perinephric stranding. 3.4 cm simple cyst again seen in the lower pole the right kidney which is stable. No follow-up indicated. Bladder: Irregular bowel wall thickening with large right posterior bladder diverticulum again seen. Cannot exclude underlying mass. Gastrointestinal Tract: Gastrostomy tube in good position within the stomach. The small and large bowel are unremarkable. The appendix is unremarkable. Abdominal Wall: No significant hernia is appreciated. Lymph Nodes: Normal. Pelvic Viscera: Unremarkable. Osseous Structures: Unremarkable. CT/CT angio abdomen pelvis IMPRESSION: Abdominal aortic aneurysm, status post endograft repair. Aneurysm sac is stable in size. No evidence of endoleak.
[2023-09-30] MEDS: iohexoL 350 MG/ML 100 ML INFUS..BTL 85 ML IV (15:56)
== END 2023-09-30 15:15 | disposition home or self-care (01) ==
LOC: HO.CT 15:14
PROVIDERS: PCP Hospitalist; Visit Provider Surgery Vascular Surgery
DX: I71.40 Abdominal aortic aneurysm, without rupture, unspecified (principal)
CPT/HCPCS: 74174; Q9967

== ENCOUNTER 2023-10-03 08:55 | Outpatient (AMB) | payer MEDICARE, MEDICAID, SELFPAY ==
--- NOTE | 2023-10-03 08:59 | MHC.OFFVIS ---
Intake Vital Signs 10/03/23 09:00 Height 5 ft 5 in Weight 103 lb BMI 17.1 Intake Visit Reasons: Follow Up 09/30 CT ABD Intake Note: 6 mo follow up Hx of EVAR 12/31/22 s/p CTA Abd/pelvis 09/30/23. Resides at [facility]. Pt states no complaints, concerned over calorie intake only, would like ensure. Accompanied by: OPERATION SHIFT SUPERVISOR [facility] facilty Allergies cefpodoxime Allergy (Intermediate, Verified 10/03/23 09:06) Rash HPI Follow Up 09/30 CT ABD HPI Details Very pleasant 73-year-old gentleman presents for follow-up regarding aortic aneurysm. He is status post endovascular aneurysm repair that was done nearly a year ago. He is currently a resident at [facility]. He reports no other interval issues. Reports he is doing fairly well. [facility] Medical History Swallowing problem Pulmonary emphysema COVID-19 vaccine series completed History of COVID-19 [facility] in [facility] facility History of falling Personal history of traumatic brain injury Other specified intracranial injury without loss of consciousness, subsequent encounter Paralytic gait Benign prostatic hyperplasia without lower urinary tract symptoms Pain in left hip Primary generalized (osteo)arthritis Constipation, unspecified Impulse disorder, unspecified Trichotillomania Alcohol dependence, uncomplicated Hyperlipidemia, unspecified Hypothyroidism, unspecified Weakness Unspecified lack of coordination Muscle weakness (generalized) Age-related nuclear cataract, bilateral Unspecified abnormalities of gait and mobility Personal history of COVID-19 Repeated falls Lefort i fracture, initial encounter for closed fracture Unsteadiness on feet Other abnormalities of gait and mobility Dysphagia, oropharyngeal phase Paranoid schizophrenia Surgical History Status post AAA (abdominal aortic aneurysm) repair History of facial surgery Family History Unknown No problems noted. Social History Household Members: None Housing: Intermediate Housing Other:: [facility] Are you a primary urgent care physician assistant to a significant other at home: No Do you presently have visiting nurse or other home services: No Unable to assess alcohol history related to: Unknown Comment: sitter Patient Tobacco Use Status: Tobacco use Unknown Tobacco use type: Cigarette Cigarettes Per Day: 4 Years Smoked: 57 Advance Directives Date on File: 12/05/22 service: No Current occupational status: disabled Review of Systems Const All systems reviewed & are unremarkable except as noted in HPI and below Reports no additional complaints ENT Reports Normal hearing present Card Denies chest pain, Denies chest pain at rest, Denies chest pain with activity and Denies pedal edema Resp Denies cough GI Denies abdominal pain Musc Denies abnormal gait, Denies muscle cramps and Denies radiating pain into limb Skin/Breast Denies skin ulcer and Denies wounds Neuro Reports Normal hearing present and Denies abnormal gait Psych Reports no additional complaints Physical Exam Vital Signs: BMI result Body Mass Index 17.1 Const General: cooperative, healthy appearing and comfortable Orientation/consciousness: oriented to person, oriented to place and oriented to time HEENT Head: Yes normal to inspection Neck Neck: Yes normal visual inspection Carotids: no bruits Chest Chest palpation & inspection: normal inspection of the chest Resp Effort & Inspection: normal respiratory effort and able to speak in complete sentences Auscultation: clear to auscultation bilaterally, no crackles, no rales, no rhonchi and no wheezes Cardio Rate: regular rate Rhythm: regular rhythm Heart sounds: S1 normal heart sound present and S2 normal heart sound present Bruits: no carotid bruits Peripheral pulses: Peripheral pulses 2+ throughout GI Inspection: Yes normal to inspection Skin Wounds: no wounds Hair: normal Neuro General: oriented to person, oriented to place and oriented to time Cranial nerves: Yes CN's II-XII intact bilaterally and Yes Normal hearing present Cognition (Neuro): normal cognition Motor exam (neuro): 5/5 motor strength present throughout Extrem Other: venous exam: No significant superficial varicosities or spider telangiectasias, minimal edema General: No clubbing, No cyanosis and No edema Psych Appearance: grossly normal Mental Status: mental status grossly normal Speech and movement: Normal speech and movement present Results Reviewed Results Reviewed: CTA dated 09/30/2023 - demonstrates stable aortic endograft with no evidence of endoleak. Written report and images were reviewed. Assessment & Plan Assessment & Plan (1) AAA (abdominal aortic aneurysm) without rupture: Comment: 12/24/2022 - endovascular aneurysm repair with Endologix AFX2 Code(s): I71.40 - Abdominal aortic aneurysm, without rupture, unspecified Qualifiers: Abdominal aorta location: infrarenal aorta Qualified Code(s): I71.43 - Infrarenal abdominal aortic aneurysm, without rupture Plan: In short patient has stable endovascular aortic aneurysm repair. We have discussed the pathophysiology of aortic aneurysms and the risk of ruptures. We have discussed rupture risk based on size. In addition we have discussed conservative measures and risk factor modification for prevention of increase in size of the aneurysm. the patient is scheduled for surveillance follow-up in approximately in [address] angiogram. Thank you for allowing us to participate in the care of this patient Orders: Orders CT angio abdomen pelvis 1 Year I71.43 - Infrarenal abdominal aortic aneurysm, without rupture Blood Urea Nitrogen 1 Year I71.43 - Infrarenal abdominal aortic aneurysm, without rupture Creatinine 1 Year I71.43 - Infrarenal abdominal aortic aneurysm, without rupture Coding Level of Care Code Est Pt Level 4 (80487) Diagnoses Infrarenal abdominal aortic aneurysm (AAA) without rupture I71.43 Abdominal aorta location: infrarenal aorta
[2023-10-03 09:00] VITALS: BMI 17.1
== END 2023-10-03 09:28 | disposition home or self-care (01) ==
LOC: HO.HVS 08:55
PROVIDERS: PCP Hospitalist; Visit Provider Surgery Vascular Surgery
DX: I71.43 Infrarenal abdominal aortic aneurysm, without rupture (principal)
CPT/HCPCS: 99213

== ENCOUNTER → 2023-10-03 08:55 | Outpatient (BNVA) | payer MEDICARE, MEDICAID, SELFPAY | PROVIDERS: PCP Hospitalist; Visit Provider Surgery Vascular Surgery | DX: I71.43 Infrarenal abdominal aortic aneurysm, without rupture (principal) | CPT/HCPCS: 99212 ==

== ENCOUNTER 2023-10-13 13:00 | Inpatient (IN) | payer MEDICARE, MEDICAID, SELFPAY ==
[2023-10-13] VITALS (12 sets, daily range): BP systolic 97–136; BP diastolic 55–79; PULSE 91–108; RESP 18–28; TEMP 33.1–37.2; O2SAT 76–101; BMI 16.4
--- NOTE | ~2023-10-13 | CT_ITS ---
EXAMINATION: CT ANGIOGRAM OF THE CHEST WITH AND WITHOUT CONTRAST (CT PULMONARY ANGIOGRAM FOR PE) CLINICAL INFORMATION: Reason for Exam hypoxia, r/o pe vs pna COMPARISON: CT chest August 28, 2023 TECHNIQUE: Prior to contrast administration, noncontrast localization images were obtained. Subsequently, multidetector volumetric imaging was performed from the thoracic inlet to below the diaphragms following the administration of 65 mL Omnipaque 350 intravenous contrast. No contrast reaction reported Sagittal, coronal, and MIP oblique sagittal reformatted images were obtained on the CT workstation, uploaded to PACS, and reviewed. This CT examination was performed using dose optimization techniques as appropriate, variously including the following: *Automated exposure control *Adjustment of mA and/or kV according to patient size (this includes techniques or standardized protocols for targeted exams where dose is matched to indication/reason for exam; i.e. extremities or head) *Use of iterative reconstruction technique Total exam dose-length product 221 mGy-cm FINDINGS: QUALITY OF STUDY/CONTRAST BOLUS: Satisfactory. PULMONARY ARTERIES: No pulmonary emboli. THORACIC AORTA: No aneurysm. Atherosclerotic vascular wall calcifications of aorta. LUNG: Marked emphysematous change of lungs. Chronic scarring and pleural parenchymal thickening at the right lung apex. Redemonstration of a tubular like mass in the left upper lobe. Measures approximately 1.2 cm transverse about 2.7 cm of length. Axial image 144/41 series 6, coronal image 31/73 series 7. This has increased in size since CAT scan August 28, 2023. Previously measured 0.9 x 0.9 x 1.5 cm. No new lung nodules. Bibasilar dependent atelectasis. PLEURA: No pleural effusion or pneumothorax. MEDIASTINUM: No mediastinal mass or significant lymphadenopathy heart size is normal. There is no pericardial effusion. No evidence of septal bowing or right heart strain. CORONARY ARTERY CALCIFICATION: Coronary artery calcification CHEST WALL/AXILLA: No axillary or internal mammary lymphadenopathy. OSSEOUS STRUCTURES: No acute or suspicious osseous abnormality. Multilevel degenerative spondylosis spine. UPPER ABDOMEN: Redemonstration stable left lobe hepatic cyst measuring 2.1 cm. No suspicious liver lesion. Stable fullness of left adrenal gland. No reflux of contrast into the hepatic veins to suggest elevated right heart pressures. CT/CT angio chest PE protocol IMPRESSION: 1. No evidence of pulmonary embolism. 2. Marked emphysematous change of lungs. 3. Redemonstration of a tubular like mass in the left upper lobe. This has increased in size since CAT scan August 28, 2023. This is suspicious for neoplasm. Consider interventional radiology consult to assess for tissue biopsy. VTE: negative.
--- NOTE | ~2023-10-13 | XR_ITS ---
EXAMINATION: XR CHEST CLINICAL INFORMATION: Hypoxia COMPARISON: None available. TECHNIQUE: Frontal view of the chest was obtained. FINDINGS: The lungs are well-expanded and clear of acute process. Heart size and pulmonary vascularity is normal. No gross bony abnormality seen. XR/XR chest 1V IMPRESSION: Unremarkable chest examination.
--- NOTE | 2023-10-13 13:48 | ECG_ITS ---
Test Reason : SOB Blood Pressure : / mmHG Vent. Rate : 091 BPM Atrial Rate : 091 BPM P-R Int : 190 ms QRS Dur : 090 ms QT Int : 412 ms P-R-T Axes : 070 075 071 degrees QTc Int : 506 ms Normal sinus rhythm Normal ECG When compared with ECG of 30-AUG-2023 09:24, ST elevation now present in Inferior leads QT has lengthened Referred By: Alcira Ledbetter Electronically Signed By:GEOVANNA VALE MD
--- NOTE | 2023-10-13 13:56 | ED_ITS ---
HPI - SOB/Dyspnea General Chief Complaint: Dyspnea Stated Complaint: ? ASPIRATION OF FOOD,FROM SNF PER EMS Time Seen by Provider: 10/13/23 13:47 Source: patient and EMS Mode of arrival: EMS Limitations: no limitations History of Present Illness HPI Narrative: 73-year-old male history of age-related nuclear cataracts, BPH, constipation, frequent falls, impulse disorder, hypothyroidism, hyperlipidemia, generalized muscle weakness, paralytic gait, paranoid schizophrenia, TBI, trichotillomania, weakness presents to the ER with concern for hypoxia, change in mental status and drooling. Per nursing staff at the facility the patient was eating lunch when they heard him coughing and found him to be hypoxic and more confused from baseline with drooling. Per documentation from custodial patient has a G-tube but is allowed a pureed diet and thickened liquids with direct supervision from nursing. Patient on arrival is hypoxia, hypothermia He is alert and oriented and reports some SOB but no pain or other complaints Related Data Home Medications Medication Instructions Recorded Confirmed acetaminophen 325 mg capsule 650 mg feeding tube Q6H PRN Fever 09/20/22 10/13/23 Or Pain bisacodyl 10 mg rectal suppository 10 mg MN DAILY PRN Constipation 09/20/22 10/13/23 (Dulcolax (bisacodyl)) sodium phosphates 19 gram-7 118 ml MN DAILY PRN Constipation 09/20/22 10/13/23 gram/118 mL enema (Fleet Enema) lactulose 10 gram/15 mL oral 15 ml feeding tube BID 09/26/22 10/13/23 solution levothyroxine 112 mcg tablet 112 mcg feeding tube DAILY@0600 09/26/22 10/13/23 simvastatin 40 mg tablet 40 mg feeding tube BEDTIME 09/26/22 10/13/23 nicotine 7 mg/24 hr daily 1 patch transdermal Q24H PRN 12/05/22 10/13/23 transdermal patch Smoking Cessation polyvinyl alcohol 1.4 % eye drops 1 drp ophthalmic (eye) Q4H PRN Dry 12/05/22 10/13/23 (Artificial Tears (polyvinyl Eyes alcohol)) sennosides 8.6 mg tablet (senna) 17.2 mg feeding tube DAILY PRN 12/05/22 10/13/23 Constipation diazepam 2 mg tablet 3 mg feeding tube BID 10/03/23 10/13/23 albuterol sulfate 90 mcg/actuation 2 puff inhalation Q4H PRN 10/13/23 10/13/23 aerosol inhaler shortness of breath or wheezing bethanechol chloride 50 mg tablet 50 mg feeding tube BID 10/13/23 10/13/23 perphenazine 8 mg tablet 8 mg feeding tube BID 10/13/23 10/13/23 terazosin 5 mg capsule 5 mg feeding tube BEDTIME 10/13/23 10/13/23 Allergies Allergy/AdvReac Type Severity Reaction Status Date / Time cefpodoxime Allergy Intermediate Rash Verified 10/03/23 09:06 Review of Systems 2 Review of Systems: Yes all other systems are reviewed and are negative Constitutional: Constitutional: Reports no additional constitutional complaints, Denies body ache(s), Denies chills, Denies fever(s), Denies headache(s) and Denies weakness Eyes: Eyes: Reports no additional eye complaints and Denies change in vision ENT: Reports system reviewed and no additional complaints, except as documented, Denies dizziness, Denies headache(s), Denies nasal congestion, Denies nasal discharge and Denies neck pain Cardiovascular: Cardiovascular: Reports no additional cardiovascular complaints, Denies chest pain, Denies leg edema and Reports dyspnea Respiratory: Respiratory: Reports no additional respiratory complaints, Denies cough and Reports dyspnea Gastrointestinal: Gastrointestinal: Reports no additional gastrointestinal complaints, Denies abdominal pain, Denies diarrhea, Denies nausea and Denies vomiting Genitourinary: Genitourinary: Denies urinary incontinence Musculoskeletal: Musculoskeletal: Reports no additional musculoskeletal complaints, Denies back pain, Denies arthralgias, Denies joint swelling, Denies neck pain, Denies numbness and Denies tingling Integumentary/Breasts: Skin/Breast: Reports system reviewed and no additional complaints, except as docu and Denies rash Neurologic: Reports system reviewed and no additional complaints, except as documented, Denies Abnormal speech present, Denies dizziness, Denies headache(s), Denies numbness, Denies tingling and Denies weakness PMFSH Past Medical History Attestation statement: The following information was validated with the patient. Source: old records reviewed and nursing notes reviewed Medical History Swallowing problem Pulmonary emphysema COVID-19 vaccine series completed History of COVID-19 Resides in snf facility History of falling Personal history of traumatic brain injury Other specified intracranial injury without loss of consciousness, subsequent encounter Paralytic gait Benign prostatic hyperplasia without lower urinary tract symptoms Pain in left hip Primary generalized (osteo)arthritis Constipation, unspecified Impulse disorder, unspecified Trichotillomania Alcohol dependence, uncomplicated Hyperlipidemia, unspecified Hypothyroidism, unspecified Weakness Unspecified lack of coordination Muscle weakness (generalized) Age-related nuclear cataract, bilateral Unspecified abnormalities of gait and mobility Personal history of COVID-19 Repeated falls Lefort i fracture, initial encounter for closed fracture Unsteadiness on feet Other abnormalities of gait and mobility Dysphagia, oropharyngeal phase Paranoid schizophrenia Surgical History Status post AAA (abdominal aortic aneurysm) repair History of facial surgery Family History Family History Unknown No problems noted. Social History Social History Household Members: None Housing: [facility] Housing Other:: [facility] Are you a primary resident care supervisor to a significant other at home: No Do you presently have visiting nurse or other home services: No Unable to assess alcohol history related to: Unknown Comment: sitter Patient Tobacco Use Status: Tobacco use Unknown Tobacco use type: Cigarette Cigarettes Per Day: 4 Years Smoked: 57 Smoked in Last 30 Days: No Use of substances other than those prescribed or required for medical reasons: No Advance Directives: Yes Advance Directives on File: Yes Advance Directives Date on File: 12/05/22 service: No Current occupational status: disabled Physical Exam 2 Vital Signs: Vital Signs: Last Vital Signs Temp 98.9 F 10/13/23 20:04 Pulse 108 H 10/13/23 18:57 Resp 22 H 10/13/23 18:57 BP 136/79 10/13/23 18:57 Pulse Ox 99 10/13/23 18:57 O2 Del Method Oxymask 10/13/23 18:57 O2 Flow Rate 2 10/13/23 18:57 BMI result Body Mass Index 16.4 Const: General: alert and ill appearing Nutritional Appearance: thin HEENT: Head: Yes normal to inspection Ears: hearing grossly normal bilaterally General nose exam: Normal external nose present Face and sinus: Yes normal facial exam Mouth: Normal oral and palatal mucosa present Throat: Yes posterior oropharynx normal Eyes: General: appearance normal, both eyes and all related structures P upils: Equal, round and reactive pupils present Neck: Neck: Yes normal visual inspection, Yes full ROM, Yes no lymphadenopathy and Yes no meningeal signs Chest: Chest palpation & inspection: normal inspection of the chest Resp: Effort & Inspection: tachypneic and uses accessory muscles A uscultation: rhonchi Cardio: Rate: regular rate Rhythm: regular rhythm Peripheral pulses: P eripheral pulses 2+ throughout GI: Inspection: Yes normal to inspection Palpation (GI): Soft to palpation and nontender Auscultation: normal bowel sounds Back/Spine/Pelvis: Thoracic/Lumbar Spine: thoracic and lumbar spine normal to inspection Skin: General skin exam: no rashes or lesions noted Neuro: General: moves all extremities, no meningeal signs and normal sensation to monofilament Cranial nerves: Yes Equal, round and reactive pupils present Cognition (Neuro): normal cognition Speech: No Abnormal speech present Extrem: General: Yes normal to inspection, Yes no pedal edema and Yes no calf tenderness Course Course Course Narrative: Temp is improving. Patient has now been titrated down to 6 L and is maintaining his oxygen saturation. Labs show leukocytosis, elevated lactic acid. Lactic acid is improving after fluids. His viral testing is negative. His chest x-ray shows no acute finding. His chest CT is negative for a pulmonary embolism and shows a redemonstration of a tubular like mass in the left upper lobe which was seen on previous imaging. Clinically I believe the patient to likely have aspiration pneumonia therefore I will speak to the medicine team for admission. Medications Administered Generic Name Dose Route Start Last Admin Trade Name Freq PRN Reason Stop Dose Admin Enoxaparin Sodium 40 mg 10/13/23 20:00 10/13/23 19:29 Enoxaparin Sodium 40 Mg/0.4 Ml Syringe SUBCUT 40 mg Q24H AMARILYS Administration Piperacillin Sod/Tazobactam 50 mls @ 100 mls/hr 10/13/23 20:00 10/13/23 19:29 Sod 3.375 gm/ Sodium Chloride IV 100 mls/hr Q6H AMARILYS Administration Discontinued Medications Generic Name Dose Route Start Last Admin Trade Name Freq PRN Reason Stop Dose Admin Acetaminophen 650 mg 10/13/23 19:54 10/13/23 19:40 Acetaminophen 325 Mg Tablet G-TUBE 650 mg Q6H PRN Administration Pain, Mild (Pain Scale 1-3) Sodium Chloride 1,000 mls @ 999 mls/hr 10/13/23 13:47 10/13/23 15:27 Ns IV 10/13/23 14:47 Infused .Q1H1M STA Infusion Cefepime HCl 2 gm/ Sodium 50 mls @ 100 mls/hr 10/13/23 13:47 10/13/23 14:38 Chloride IV 10/13/23 14:16 Infused ONCE ONE Infusion Sodium Chloride 500 mls @ 999 mls/hr 10/13/23 14:38 10/13/23 15:57 Ns IV 10/13/23 15:08 Infused .Q31M STA Infusion Iohexol 65 ml 10/13/23 16:35 10/13/23 16:36 Iohexol 350 Mg/Ml 100 Ml Infus..Btl IV 10/13/23 16:36 65 ml ONCE ONE Administration Medical Decision Making Medical Decision Making MDM Narrative: [id number]-old male history of age-related nuclear cataracts, BPH, constipation, frequent falls, impulse disorder, hypothyroidism, hyperlipidemia, generalized muscle weakness, paralytic gait, paranoid schizophrenia, TBI, trichotillomania, weakness presents to the ER with concern for hypoxia, change in mental status and drooling. Per nursing staff at the facility the patient was eating lunch when they heard him coughing and found him to be hypoxic and more confused from baseline with drooling. Per documentation from custodial patient has a G-tube but is allowed a pureed diet and thickened liquids with direct supervision from nursing. Patient on arrival is hypoxia, hypothermia He is alert and oriented and reports some SOB but no pain or other complaints Coarse breath sounds, tachypnic, using accessory muscles on arrival Improvement with suctioning Placed on simple face mask with oxygen For hypothermia a jose alfredo hugger was applied Will obtain labs, EKG, CXR, UA, viral testing At this time infection is suspected. Sepsis alert called. Antibiotics and fluids ordered. Patient is FULL CODE Differential Diagnosis Differential Diagnoses: The differential diagnosis associated with the presentation includes aspiration PNA, PE, viral syndrome Admission/Observation Consideration of admission/observation: Escalation of care including admission/observation considered Patient with hypoxia with clinical pneumonia requiring admission for further management Consult Healthcare Provider Management of the patient was discussed with: Hospitalist Dr Nova-accepted admission Lab Data MDM Lab Attestation statement: I reviewed the patient's lab results. 10/13/23 14:37 10/13/23 13:51 Labs: Lab Results 10/13/23 10/13/23 10/13/23 Range/Units 13:51 13:53 14:37 WBC 14.3 H (4.8-10.8) X10*3/uL RBC 4.04 L (4.60-5.80) X10*6/uL Hgb 10.9 L (14.0-18.0) g/dl Hct 35.3 L (42.0-52.0) % MCV 87.4 (80.0-98.0) fL MCH 27.0 (27.0-33.0) pg MCHC 30.9 L (31.0-36.0) g/dl RDW 15.5 (11.0-16.0) % Plt Count 212 D (160-400) X10*3/uL MPV 9.9 (9.4-12.4) fL Immature Gran % (Auto) 0.3 (0.0-0.4) % Neut % (Auto) 87.5 H (45-73) % Lymph % (Auto) 3.1 L (20-40) % [place] % (Auto) 8.9 (2-11) % Eos % (Auto) 0.0 (0-4) % Baso % (Auto) 0.2 (0-2) % Lymph # (Auto) 0.5 L (1.2-4.9) X10*3/uL [place] # (Auto) 1.3 H (0.1-1.2) X10*3/uL Eos # (Auto) 0.0 (0.0-0.4) X10*3/uL Baso # (Auto) 0.0 (0.0-0.2) X10*3/uL Abs Immat Gran (auto) 0.05 H (0.00-0.03) X10*3/uL Absolute Neuts (auto) 12.5 H (2.0-8.3) x10*3/uL Absolute Nucleated RBC 0.000 (0.0-0.012) X10*3/uL Nucleated RBC % (auto) 0.0 (0.0-0.2) /100WBC PT 10.8 L (11.1-13.3) SEC INR 0.9 (0.9-1.1) VBG pH 7.34 (7.32-7.43) VBG pCO2 47 mmHg VBG pO2 51 mmHg VBG HCO3 26 (22-26) mmol/L VBG O2 Saturation 76.0 % VBG Base Excess 0.0 mmol/L Sodium 143 (135-145) mmol/L Potassium 3.6 (3.3-5.1) mmol/L Chloride 106 (96-108) mmol/L Carbon Dioxide 25 (22-29) mmol/L Anion Gap 16 (12-20) BUN 34 H (9-16) mg/dL Creatinine 1.09 (0.5-1.4) mg/dL Estim Creat Clear Calc 41.8 Estimated GFR > 60 Random Glucose 89 (60-115) mg/dL Lactic Acid 4.3 H* (0.5-2.0) mmol/L Lactic Acid F/U @ 2Hr (0.5-2.0) mmol/L Lactic Acid F/U @ 4Hr (0.5-2.0) mmol/L Calcium 10.2 D (8.4-10.2) mg/dL Magnesium 2.5 (1.6-2.6) mg/dL Total Bilirubin 0.3 (0.0-1.0) mg/dL Direct Bilirubin 0.1 (0.0-0.5) mg/dL AST 25 (5-37) U/L ALT 18 (0-40) U/L Alkaline Phosphatase 148 H (39-117) U/L Troponin I High Sens < 2.7 (<3.5-35.0) ng/L B-Natriuretic Peptide 29 (<100) pg/mL Total Protein 7.6 (6.5-8.0) g/dL Albumin 3.9 (3.5-5.0) g/dL Influenza Type A (PCR) NEGATIVE (Negative) Influenza Type B (PCR) NEGATIVE (Negative) RSV RNA Qual (PCR) NEGATIVE (Negative) SARS-CoV-2 RNA (RT-PCR) NEGATIVE (Negative) 10/13/23 10/13/23 Range/Units 16:07 18:37 WBC (4.8-10.8) X10*3/uL RBC (4.60-5.80) X10*6/uL Hgb (14.0-18.0) g/dl Hct (42.0-52.0) % MCV (80.0-98.0) fL MCH (27.0-33.0) pg MCHC (31.0-36.0) g/dl RDW (11.0-16.0) % Plt Count (160-400) X10*3/uL MPV (9.4-12.4) fL Immature Gran % (Auto) (0.0-0.4) % Neut % (Auto) (45-73) % Lymph % (Auto) (20-40) % [place] % (Auto) (2-11) % Eos % (Auto) (0-4) % Baso % (Auto) (0-2) % Lymph # (Auto) (1.2-4.9) X10*3/uL [place] # (Auto) (0.1-1.2) X10*3/uL Eos # (Auto) (0.0-0.4) X10*3/uL Baso # (Auto) (0.0-0.2) X10*3/uL Abs Immat Gran (auto) (0.00-0.03) X10*3/uL Absolute Neuts (auto) (2.0-8.3) x10*3/uL Absolute Nucleated RBC (0.0-0.012) X10*3/uL Nucleated RBC % (auto) (0.0-0.2) /100WBC PT (11.1-13.3) SEC INR (0.9-1.1) VBG pH (7.32-7.43) VBG pCO2 mmHg VBG pO2 mmHg VBG HCO3 (22-26) mmol/L VBG O2 Saturation % VBG Base Excess mmol/L Sodium (135-145) mmol/L Potassium (3.3-5.1) mmol/L Chloride (96-108) mmol/L Carbon Dioxide (22-29) mmol/L Anion Gap (12-20) BUN (9-16) mg/dL Creatinine (0.5-1.4) mg/dL Estim Creat Clear Calc Estimated GFR Random Glucose (60-115) mg/dL Lactic Acid (0.5-2.0) mmol/L Lactic Acid F/U @ 2Hr 3.1 H* (0.5-2.0) mmol/L Lactic Acid F/U @ 4Hr 1.1 (0.5-2.0) mmol/L Calcium (8.4-10.2) mg/dL Magnesium (1.6-2.6) mg/dL Total Bilirubin (0.0-1.0) mg/dL Direct Bilirubin (0.0-0.5) mg/dL AST (5-37) U/L ALT (0-40) U/L Alkaline Phosphatase (39-117) U/L Troponin I High Sens (<3.5-35.0) ng/L B-Natriuretic Peptide (<100) pg/mL Total Protein (6.5-8.0) g/dL Albumin (3.5-5.0) g/dL Influenza Type A (PCR) (Negative) Influenza Type B (PCR) (Negative) RSV RNA Qual (PCR) (Negative) SARS-CoV-2 RNA (RT-PCR) (Negative) Independent Interpretation I performed an independent interpretation of an: EKG, Plain X-Ray and CT Scan Interpretation: I independently reviewed the EKG which shows NSR with rate 91, normal pr, normal qrs, normal qt I independently reviewed the chest x-ray and a CT scan agree with the radiology report Radiology Impression Discussion of test interpretation with radiology: I have reviewed the radiologist's reading. Radiologist Impression: [place] [id number] CT Scan Report Signed Patient: Mariusz Kirkland MR#: [id number] : 1950 Acct:[id number] Age/Sex: 73 / M ADM Date: 10/13/23 Loc: HO.ED Attending Dr: Ordering Physician: Alcira Galarza NP Date of Service: 10/13/23 Procedure(s): CT angio chest PE protocol Accession Number(s): [id number] cc: Jeffrey Delatorre DO; Alcira Galarza NP~ EXAMINATION: CT ANGIOGRAM OF THE CHEST WITH AND WITHOUT CONTRAST (CT PULMONARY ANGIOGRAM FOR PE) CLINICAL INFORMATION: Reason for Exam hypoxia, r/o pe vs pna COMPARISON: CT chest August 28, 2023 TECHNIQUE: Prior to contrast administration, noncontrast localization images were obtained. Subsequently, multidetector volumetric imaging was performed from the thoracic inlet to below the diaphragms following the administration of 65 mL Omnipaque 350 intravenous contrast. No contrast reaction reported Sagittal, coronal, and MIP oblique sagittal reformatted images were obtained on the CT workstation, uploaded to PACS, and reviewed. This CT examination was performed using dose optimization techniques as appropriate, variously including the following: *Automated exposure control *Adjustment of mA and/or kV according to patient size (this includes techniques or standardized protocols for targeted exams where dose is matched to indication/reason for exam; i.e. extremities or head) *Use of iterative reconstruction technique Total exam dose-length product 221 mGy-cm FINDINGS: QUALITY OF STUDY/CONTRAST BOLUS: Satisfactory. PULMONARY ARTERIES: No pulmonary emboli. THORACIC AORTA: No aneurysm. Atherosclerotic vascular wall calcifications of aorta. LUNG: Marked emphysematous change of lungs. Chronic scarring and pleural parenchymal thickening at the right lung apex. Redemonstration of a tubular like mass in the left upper lobe. Measures approximately 1.2 cm transverse about 2.7 cm of length. Axial image 144/41 series 6, coronal image 31/73 series 7. This has increased in size since CAT scan August 28, 2023. Previously measured 0.9 x 0.9 x 1.5 cm. No new lung nodules. Bibasilar dependent atelectasis. PLEURA: No pleural effusion or pneumothorax. MEDIASTINUM: No mediastinal mass or significant lymphadenopathy heart size is normal. There is no pericardial effusion. No evidence of septal bowing or right heart strain. CORONARY ARTERY CALCIFICATION: Coronary artery calcification CHEST WALL/AXILLA: No axillary or internal mammary lymphadenopathy. OSSEOUS STRUCTURES: No acute or suspicious osseous abnormality. Multilevel degenerative spondylosis spine. UPPER ABDOMEN: Redemonstration stable left lobe hepatic cyst measuring 2.1 cm. No suspicious liver lesion. Stable fullness of left adrenal gland. No reflux of contrast into the hepatic veins to suggest elevated right heart pressures. CT/CT angio chest PE protocol IMPRESSION: 1. No evidence of pulmonary embolism. 2. Marked emphysematous change of lungs. 3. Redemonstration of a tubular like mass in the left upper lobe. This has increased in size since CAT scan August 28, 2023. This is suspicious for neoplasm. Consider interventional radiology consult to assess for tissue biopsy. [address] [address] XRay Report Signed Patient: Mariusz Kirkland MR#: [id number] : 1950 Acct:[id number] Age/Sex: 73 / M ADM Date: 10/13/23 Loc: HO.ED Attending Dr: Ordering Physician: Alcira Galarza NP Date of Service: 10/13/23 Procedure(s): XR chest 1V Accession Number(s): [id number] cc: Jeffrey Delatorre DO; Alcira Galarza NP~ EXAMINATION: XR CHEST CLINICAL INFORMATION: Hypoxia COMPARISON: None available. TECHNIQUE: Frontal view of the chest was obtained. FINDINGS: The lungs are well-expanded and clear of acute process. Heart size and pulmonary vascularity is normal. No gross bony abnormality seen. XR/XR chest 1V IMPRESSION: Unremarkable chest examination. Independent Historian Clinical information obtained from an independent historian. History obtained from or confirmed by: EMS Prescription Management I considered prescription management with: Antibiotic Critical Care Time Critical Care Time Critical Care Time: Yes Total Critical Care Time: 120 Attestation: Hypoxia requiring immediate intervention, hypothermia requiring immediate intervention with respiratory failure Review of records from snf facility Direct bedside reassessment on respiratory status several occasions Admission to hospitalist service Discharge Plan Discharge Clinical Impression: Hypoxia, Hypothermia, Elevated lactic acid level, Leukocytosis, Aspiration pneumonia, Lung mass Patient Disposition: Admitted As Inpatient
[2023-10-13 13:59] LABS: Venous Blood Gas Refer to POC result
[2023-10-13 14:00] LABS: VBG HCO3 26 mmol/L (22-26); VBG pCO2 47 mmHg; VBG pH 7.34 (7.32-7.43); VBG pO2 51 mmHg
[2023-10-13] MEDS: 0.9 % Sodium Chloride 1,000 ML 999 ML IV (14:05)
[2023-10-13 14:07] LABS: INTERNATIONAL NORM RATIO 0.9 (0.9-1.1); Prothrombin Time 10.8 SEC (11.1-13.3)
[2023-10-13] MEDS: cefEPime HCl 2 GM in 0.9 % Sodium Chloride 50 ML IV (14:08)
[2023-10-13 14:17] LABS: B Type Natriuretic Peptide 29 pg/mL (<100)
--- NOTE | 2023-10-13 14:20 | PC.NURSE ---
patient came from [facility] via ems, pt placed in barboza 18 initially on 2L NC, pt had notable work of breathing, accessory muscle use, this nurse attempted to get vitals and was unable to obtain vitals initially- pt diaphoretic and pale, this nurse spoke with charge and moved pt into room 21 and moving pt in 21 to barboza 18, pt was then connected to analog design engineer, O2 sat was obtained and was noted to be in the 70s, Oxymask was applied at 6 L NC and RT was called who changed patient over to NRB mask, provider came to bedside and attempted IV access to rt arm which blew after obtaining 1 set of blood cultures, lt arm iv access was obtained, all labs were drawn, pt was placed on a jose alfredo huggar due to core body temp of low 90s, pt was then incontinent of large amount of stool which a bed changed was performed.
[2023-10-13 14:37] LABS: Alanine Aminotransferase 18 U/L (0-40); Albumin Level 3.9 g/dL (3.5-5.0); Alkaline Phosphatase 148 U/L (39-117); Anion Gap 16 (12-20); Aspartate Amino Transferase 25 U/L (5-37); Bilirubin Direct 0.1 mg/dL (0.0-0.5); Bilirubin Total 0.3 mg/dL (0.0-1.0); Blood Urea Nitrogen 34 mg/dL (9-16); Calcium 10.2 mg/dL (8.4-10.2); Carbon Dioxide 25 mmol/L (22-29); Chloride 106 mmol/L (96-108); Creatinine Clr Calc Pharmacy 41.8; Estimated Glomerular Filt Rate > 60; Glucose Random 89 mg/dL (60-115); Magnesium 2.5 mg/dL (1.6-2.6); Potassium 3.6 mmol/L (3.3-5.1); Sodium 143 mmol/L (135-145); Total Protein 7.6 g/dL (6.5-8.0)
[2023-10-13 14:38] LABS: Lactic Acid 4.3 mmol/L (0.5-2.0)
[2023-10-13 14:45] LABS: Basophils Percent Auto 0.2 % (0-2); Hematocrit 35.3 % (42.0-52.0); Hemoglobin 10.9 g/dl (14.0-18.0); Imm Gran Abs Auto 0.05 X10*3/uL (0.00-0.03); Imm Gran Pct Auto 0.3 % (0.0-0.4); Lymphocytes Absolute Auto 0.5 X10*3/uL (1.2-4.9); Lymphocytes Percent Auto 3.1 % (20-40); Mean Corpuscular HGB Conc 30.9 g/dl (31.0-36.0); Mean Corpuscular Volume 87.4 fL (80.0-98.0); Mean Platelet Volume 9.9 fL (9.4-12.4); Monocytes Absolute Auto 1.3 X10*3/uL (0.1-1.2); Monocytes Percent Auto 8.9 % (2-11); Neutrophils Absolute Auto 12.5 x10*3/uL (2.0-8.3); Neutrophils Percent Auto 87.5 % (45-73); Platelet Count 212 X10*3/uL (160-400); Red Blood Count 4.04 X10*6/uL (4.60-5.80); Red Cell Distribution Width 15.5 % (11.0-16.0); White Blood Count 14.3 X10*3/uL (4.8-10.8)
[2023-10-13 14:46] LABS: MANUAL DIFF FLAG NO
--- NOTE | 2023-10-13 15:00 | PC.NURSE ---
pt pulled out IV access, and patient was incontinent of a large amount of stool full bed change was performed
--- NOTE | 2023-10-13 15:20 | PC.NURSE ---
new iv access was established after bed change, pt now has 22g in lt FA, ivf have been restarted. pt notable wet cough, rhonchi throughout.
[2023-10-13] MEDS: 0.9 % Sodium Chloride 500 ML 999 ML IV (15:28)
--- NOTE | 2023-10-13 15:28 | PC.NURSE ---
second back of fluids started per order
[2023-10-13 15:48] LABS: Influenza A PCR NEGATIVE (Negative); Influenza B PCR NEGATIVE (Negative); Resp Syncy Virus RNA Qual PCR NEGATIVE (Negative); SARS COV2 PCR INHOUSE NEGATIVE (Negative)
[2023-10-13 15:54] LABS: Reflex Lactate? Lactic Acid Added
--- NOTE | 2023-10-13 15:58 | PC.NURSE ---
ivf have completed, secured entrance monitor sinus tach, vitals obtained, rectal temp still low, pt remains on jose alfredo huggar at this time, pt changed from NRB mask to oxymask 6L by RT, pt maintaining O2 sat on oxymask, will continue to montior
[2023-10-13 16:25] LABS: ~Lactic Acid-LAB USE ONLY 3.1 mmol/L (0.5-2.0)
[2023-10-13] MEDS: iohexoL 350 MG/ML 100 ML INFUS..BTL 65 ML IV (16:36)
[2023-10-13 16:41] LABS: Troponin-I High Sensitivity < 2.7 ng/L (<3.5-35.0)
--- NOTE | 2023-10-13 16:49 | PC.NURSE ---
pt alert to person, escapement matcher nsr/st, pt continues to be on jose alfredo hugger, Oxymask intact, sepsis vitals have been obtained, call diego within reach, pt currently watching tv, will continue to monitor
--- NOTE | 2023-10-13 17:36 | PC.NURSE ---
patient awake/alert to person conversing with this nurse about sports, front desk monitor st, pt on oxymask 6L NC, recal temp performed-pt still notable hypothermic- jose alfredo dontae intact, call diego within reach, will continue to monitor
[2023-10-13 18:10] LABS: Reflex Lactate? 2 Y
--- NOTE | 2023-10-13 18:41 | PHA.MEDREC ---
Pharmacy Consult ? Medication Reconciliation Pharmacy has completed the medication reconciliation. Med list from [facility].
[2023-10-13 18:53] LABS: ~Lactic Acid-LAB USE ONLY 1.1 mmol/L (0.5-2.0)
--- NOTE | 2023-10-13 18:57 | PM.IMHP ---
History of Present Illness Date of Service: 10/13/23 Attending physician on admission: Broderick Rosado Chief Complaint: Hypoxia, hypothermia, likely aspiration Pt is a 73-year-old male with a PMH significant for?TBI, AAA s/p elective repair, COPD on prn home O2, hypothyroidism, HTN, HLD, BPH, frequent falls, and paranoid schizophrenia who presents to the ED from SNF who presents to the ED for evaluation of hypoxia and confusion after possible aspiration event. Patient is a resident of [facility] and has marked dysarthria and dysphagia, and multiple episodes of aspiration in the past. Recently had PEG tube install and started tube feeding. Patient alert and oriented to self only, and thus not capable of providing accurate HPI which is instead taken from chart and provider review. Per SNF staff, patient was eating lunch when they heard him coughing found him to be hypoxic and more confused than normal. Patient primarily has tube feeding diet, though is also allowed a pureed diet at facility if he is directly supervised by staff. In the ED pt was hypothermic as low as 91.6, tachycardic to 108 tachypneic up to 28, and hypoxic as low as 76% on RA. Labs were significant for leukocytosis of 14.3, lactic acid of 4.3 with repeat 3.1, otherwise grossly unremarkable. Stable H&H. No significant electrolyte abnormalities. Renal function WNL. Hepatic function WNL. Troponin negative. BNP WNL. CXR was unremarkable. Chest CTA showed no evidence of pulmonary embolism but showed marked emphysematous changes of the lungs, and redemonstrated tubular like mass in the left upper lobe that has increased in size since scan on 08/28/2023, suspicious for neoplasm. EKG demonstrated normal sinus rhythm with QTc of 506. Pt was treated with IVF and cefepime. Pt will be admitted to the hospital for acute hypoxic respiratory failure in the setting of likely aspiration pneumonia. Review of Systems Review of Systems: Unable to obtain due to patient's mentation. FOR[facility]LY [facility], LATER [facility] Medical History Swallowing problem Pulmonary emphysema COVID-19 vaccine series completed History of COVID-19 Resides in residential facility History of falling Personal history of traumatic brain injury Other specified intracranial injury without loss of consciousness, subsequent encounter Paralytic gait Benign prostatic hyperplasia without lower urinary tract symptoms Pain in left hip Primary generalized (osteo)arthritis Constipation, unspecified Impulse disorder, unspecified Trichotillomania Alcohol dependence, uncomplicated Hyperlipidemia, unspecified Hypothyroidism, unspecified Weakness Unspecified lack of coordination Muscle weakness (generalized) Age-related nuclear cataract, bilateral Unspecified abnormalities of gait and mobility Personal history of COVID-19 Repeated falls Lefort i fracture, initial encounter for closed fracture Unsteadiness on feet Other abnormalities of gait and mobility Dysphagia, oropharyngeal phase Paranoid schizophrenia Family History Unknown No problems noted. Surgical History Status post AAA (abdominal aortic aneurysm) repair History of facial surgery Social History Household Members: None Housing: Skilled Nursing Housing Other:: [facility] Are you a primary resident care director to a significant other at home: No Do you presently have visiting nurse or other home services: No Unable to assess alcohol history related to: Unknown Comment: sitter Patient Tobacco Use Status: Tobacco use Unknown Tobacco use type: Cigarette Cigarettes Per Day: 4 Years Smoked: 57 Smoked in Last 30 Days: No Use of substances other than those prescribed or required for medical reasons: No Advance Directives: Yes Advance Directives on File: Yes Advance Directives Date on File: 12/05/22 service: No Current occupational status: disabled Meds Allergies Allergy/AdvReac Type Severity Reaction Status Date / Time cefpodoxime Allergy Intermediate Rash Verified 10/03/23 09:06 Active Medications: Current Medications Acetaminophen (Acetaminophen 325 Mg Tablet) 650 mg PO Q6H PRN PRN Reason: Pain, Mild (Pain Scale 1-3) Benzonatate (Benzonatate 100 Mg Capsule) 100 mg PO TID PRN PRN Reason: Cough Docusate Sodium (Docusate Sodium 100 Mg Capsule) 100 mg PO DAILY PRN PRN Reason: Constipation Enoxaparin Sodium (Enoxaparin Sodium 40 Mg/0.4 Ml Syringe) 40 mg SUBCUT Q24H AMARILYS Piperacillin Sod/Tazobactam (Sod 3.375 gm/ Sodium Chloride) 50 mls @ 100 mls/hr IV Q6H AMARILYS Melatonin (Melatonin 3 Mg Tablet) 6 mg PO BEDTIME PRN PRN Reason: Insomnia Ondansetron HCl (Ondansetron Hcl 4 Mg/2 Ml Vial) 4 mg IVPUSH Q8H PRN PRN Reason: Nausea and Vomiting Sodium Chloride (0.9 % Sodium Chloride Flush 3 Ml Syringe) 3 ml IVFLUSH QSHIFT [facility] Home Medications Medication Instructions Recorded Confirmed Last Taken Type acetaminophen 325 mg capsule 650 mg feeding tube Q6H PRN Fever 09/20/22 10/13/23 Unknown History Or Pain bisacodyl 10 mg rectal suppository 10 mg TX DAILY PRN Constipation 09/20/22 10/13/23 Unknown History (Dulcolax (bisacodyl)) sodium phosphates 19 gram-7 118 ml TX DAILY PRN Constipation 09/20/22 10/13/23 Unknown History gram/118 mL enema (Fleet Enema) lactulose 10 gram/15 mL oral 15 ml feeding tube BID 09/26/22 10/13/23 Unknown History solution levothyroxine 112 mcg tablet 112 mcg feeding tube DAILY@0600 09/26/22 10/13/23 Unknown History simvastatin 40 mg tablet 40 mg feeding tube BEDTIME 09/26/22 10/13/23 Unknown History nicotine 7 mg/24 hr daily 1 patch transdermal Q24H PRN 12/05/22 10/13/23 Unknown History transdermal patch Smoking Cessation polyvinyl alcohol 1.4 % eye drops 1 drp ophthalmic (eye) Q4H PRN Dry 12/05/22 10/13/23 Unknown History (Artificial Tears (polyvinyl Eyes alcohol)) sennosides 8.6 mg tablet (senna) 17.2 mg feeding tube DAILY PRN 12/05/22 10/13/23 Unknown History Constipation diazepam 2 mg tablet 3 mg feeding tube BID 10/03/23 10/13/23 Unknown History albuterol sulfate 90 mcg/actuation 2 puff inhalation Q4H PRN 10/13/23 10/13/23 Unknown History aerosol inhaler shortness of breath or wheezing bethanechol chloride 50 mg tablet 50 mg feeding tube BID 10/13/23 10/13/23 Unknown History perphenazine 8 mg tablet 8 mg feeding tube BID 10/13/23 10/13/23 Unknown History terazosin 5 mg capsule 5 mg feeding tube BEDTIME 10/13/23 10/13/23 Unknown History Physical Exam Vital Signs and Narrative: Vital Signs: Last Vital Signs Temp 94.6 F L 10/13/23 17:35 Pulse 103 H 10/13/23 17:35 Resp 22 H 10/13/23 17:35 BP 127/77 10/13/23 17:35 Pulse Ox 99 10/13/23 17:35 O2 Del Method Oxymask 10/13/23 17:35 O2 Flow Rate 6 10/13/23 17:35 BMI result Body Mass Index 16.4 Constitutional: Alert, cachectic, frail looking. In no acute distress. Difficult to understand secondary to dysarthria. Mental Status: Oriented to person only, not to place, time, or situation. Eyes: Pupils are equal, round, and reactive to light. Ear, Nose, and Throat: Oropharynx clear, mucous membranes moist. Ears and nose without deformities. Trachea midline. Respiratory: Diffuse coarse expiratory breath sounds bilaterally. Cardiovascular: S1, S2, tachy. No murmurs, rubs, or gallops. Gastrointestinal: Abdomen soft, non-tender, non-distended. Normal bowel sounds. Peg tube in place. Neurologic: Cranial nerves II-XII are grossly intact bilaterally. No focal neurological deficits. Moves all extremities spontaneously. Skin: Warm, dry. Patient in jose alfredo hugger. Musculoskeletal: No cyanosis or clubbing. Extremities: No edema. Psychiatric: Pleasantly confused, cooperative. Results Labs 10/13/23 14:37 10/13/23 13:51 Labs: Laboratory Results - last 24 hr 10/13/23 10/13/23 10/13/23 13:51 13:53 14:37 MCV 87.4 MCH 27.0 MCHC 30.9 L RDW 15.5 Plt Count 212 D MPV 9.9 Immature Gran % (Auto) 0.3 Neut % (Auto) 87.5 H Lymph % (Auto) 3.1 L Long % (Auto) 8.9 Eos % (Auto) 0.0 Baso % (Auto) 0.2 Lymph # (Auto) 0.5 L Long # (Auto) 1.3 H Eos # (Auto) 0.0 Baso # (Auto) 0.0 Abs Immat Gran (auto) 0.05 H Absolute Neuts (auto) 12.5 H Absolute Nucleated RBC 0.000 Nucleated RBC % (auto) 0.0 PT 10.8 L INR 0.9 VBG pH 7.34 VBG pCO2 47 VBG pO2 51 VBG HCO3 26 VBG O2 Saturation 76.0 VBG Base Excess 0.0 Anion Gap 16 Estim Creat Clear Calc 41.8 Estimated GFR > 60 Random Glucose 89 Lactic Acid 4.3 H* Lactic Acid F/U @ 2Hr Lactic Acid F/U @ 4Hr Calcium 10.2 D Magnesium 2.5 Total Bilirubin 0.3 Direct Bilirubin 0.1 AST 25 ALT 18 Alkaline Phosphatase 148 H Troponin I High Sens < 2.7 B-Natriuretic Peptide 29 Total Protein 7.6 Albumin 3.9 Influenza Type A (PCR) NEGATIVE Influenza Type B (PCR) NEGATIVE RSV RNA Qual (PCR) NEGATIVE SARS-CoV-2 RNA (RT-PCR) NEGATIVE 10/13/23 10/13/23 16:07 18:37 MCV MCH MCHC RDW Plt Count MPV Immature Gran % (Auto) Neut % (Auto) Lymph % (Auto) Long % (Auto) Eos % (Auto) Baso % (Auto) Lymph # (Auto) Long # (Auto) Eos # (Auto) Baso # (Auto) Abs Immat Gran (auto) Absolute Neuts (auto) Absolute Nucleated RBC Nucleated RBC % (auto) PT INR VBG pH VBG pCO2 VBG pO2 VBG HCO3 VBG O2 Saturation VBG Base Excess Anion Gap Estim Creat Clear Calc Estimated GFR Random Glucose Lactic Acid Lactic Acid F/U @ 2Hr 3.1 H* Lactic Acid F/U @ 4Hr 1.1 Calcium Magnesium Total Bilirubin Direct Bilirubin AST ALT Alkaline Phosphatase Troponin I High Sens B-Natriuretic Peptide Total Protein Albumin Influenza Type A (PCR) Influenza Type B (PCR) RSV RNA Qual (PCR) SARS-CoV-2 RNA (RT-PCR) Imaging Radiologist's Impressions: Impressions Chest X-Ray 10/13/23 14:26 IMPRESSION: Unremarkable chest examination. Chest CTA 10/13/23 16:42 IMPRESSION: 1. No evidence of pulmonary embolism. 2. Marked emphysematous change of lungs. 3. Redemonstration of a tubular like mass in the left upper lobe. This has increased in size since CAT scan August 28, 2023. This is suspicious for neoplasm. Consider interventional radiology consult to assess for tissue biopsy. VTE: negative. Assessment and Plan (1) Acute respiratory failure with hypoxia: Status: Acute (2) Hypothermia: Status: Acute Plan Pt is a 73-year-old male with a PMH significant for?TBI, AAA s/p elective repair, COPD on prn home O2, hypothyroidism, HTN, HLD, BPH, frequent falls, and paranoid schizophrenia who presents to the ED from SNF who presents to the ED for evaluation of hypoxia and confusion after possible aspiration event. Pt will be admitted to the hospital for acute hypoxic respiratory failure in the setting of likely aspiration pneumonia. Acute hypoxic respiratory failure in setting of likely aspiration pneumonia with sepsis Patient initially satting at 76% on RA; with coarse expiratory breath sounds upon examination Meets sepsis criteria: Hypothermia, tachycardia, tachypnea, leukocytosis; lactic acid 4.3 with repeat 3.1 and 1.1 Patient given IVF sepsis bolus and started on broad-spectrum antibiotics in the ED Will empirically treat with Zosyn, started 10/13/2023 Aspiration precautions Titrate supplemental O2 >92, wean as tolerated Hypothermia Likely secondary to sepsis Continue Jose Alfredo Hugger until normothermic, wean as tolerated Follow temp Diet/Protein calorie malnutrition Patient with TBI, dysphagia, dysarthria Osmolite 1.5 through PEG tube COPD Not in acute exacerbation Continue home inhalers Duonebs prn Hypothyroidism Continue levothyroxine Hx of TBI, paranoid schizophrenia Continue home meds Lung mass CT redemonstrated tubular like mass in left upper lobe that has increased in size since previous scan on 08/28/2023 Follow-up outpatient for possible biopsy Full Code Attending:?Dr. Dee DVT Prophylaxis: Lovenox Pt will require a hospitalization of at least two nights for treatment of?acute hypoxic respiratory failure and hypothermia in the setting likely aspiration pneumonia with sepsis. Given patient's many significant comorbidities, he will require hospitalization for administration of IV antibiotics, treatment with Jose Alfredo Hugger, and close monitoring of labs and respiratory status. Quality Stroke Does the patient have a stroke diagnosis?: No VTE Prior VTE?: No VTE Risk Level:: Medical - moderate - high VTE Device Contraindication: Treatment Not Indicated VTE Drug Contraindication: N/A - Med Ordered
[2023-10-13] MEDS: Piperacillin Sodium/Tazobactam 3.375 GM in 0.9 % Sodium Chloride 50 ML IV (19:29)
[2023-10-13] MEDS: Enoxaparin Sodium 40 MG/0.4 ML SYRINGE SUBCUT (19:29)
--- NOTE | 2023-10-13 19:36 | PC.NURSE ---
Assumed care of pt. Pt lying on stretcher, no acute distress at this time. Pt currently tolerating mask and IV's, continuing to monitor for concerns of intolerance and need for sitter.
[2023-10-13] MEDS: Acetaminophen 325 MG TABLET 650 MG G-TUBE (19:40)
--- NOTE | 2023-10-13 19:57 | PC.NURSE ---
pt medicated with tylenol per order for 5/10 pain, crushed through gtube. pharmacy is changing the order to liquid for further administrations.
--- NOTE | 2023-10-13 19:58 | PC.NURSE ---
pt incontinent of large amount of urine, [place] condom cath placed- pt tolerating well.
--- NOTE | 2023-10-13 19:59 | MHC.EDTECH ---
This tech assisted the nurse with cleaning and changing the patient. Once he was all set, this tech placed a [place] cath on the patient. All set.
--- NOTE | 2023-10-13 20:05 | PC.NURSE ---
pt rectal temp performed, jose alfredo diggs has been removed as pts temp is now wnl.
[2023-10-13 20:47] LABS: Appearance Urine Turbid; Color Urine Dark Yellow; Glucose Urine UA Negative (Negative); Leukocyte Esterase Urine Large (3+) (Negative); Nitrite Urine Negative (Negative); PH 8.5 (5.0-9.0); Specific Gravity - Urine >= 1.030 (1.005-1.025); UMIC TRIGGER UACC YES; Urine Blood Large (3+) (Negative); Urine Ketones Negative (Negative); Urine Protein 100 (2+) mg/dL (Neg-Trace)
[2023-10-13] MEDS: Perphenazine 8 MG TABLET G-TUBE (20:48)
[2023-10-13] MEDS: Atorvastatin Calcium 20 MG TABLET G-TUBE (20:48)
[2023-10-13] MEDS: diazePAM 2 MG TABLET 3 MG G-TUBE (20:48)
[2023-10-13] MEDS: Doxazosin Mesylate 2 MG TABLET 4 MG G-TUBE (20:48)
--- NOTE | 2023-10-13 20:52 | PC.NURSE ---
pt medicated through g-tube per order
--- NOTE | 2023-10-13 20:53 | PC.NURSE ---
pharmacy called for missing med
[2023-10-13 20:54] LABS: Bacteria Urine 4+ (None Seen); RBC Urine >20 /HPF (0-2); Squamous Epithelial Cell Urine 0-2 /HPF (0-2); UACC Culture Trigger YES; WBC Urine >50 /HPF (0-5)
--- NOTE | 2023-10-13 21:04 | PC.NURSE ---
pt BP was soft, this nurse spoke with justin zayas who also came into the patients room to see him while he was in the ED, verbal order was given to start NS @ 100 ml/hr.
[2023-10-13] MEDS: 0.9 % Sodium Chloride 1,000 ML 100 ML IVCONT (21:07)
[2023-10-13] MEDS: Bethanechol Chloride 25 MG TABLET 50 MG G-TUBE (21:48)
[2023-10-14] VITALS (11 sets, daily range): BP systolic 87–139; BP diastolic 54–83; PULSE 74–90; RESP 12–23; TEMP 35.8–36.6; O2SAT 99–100
--- NOTE | 2023-10-14 02:38 | PC.NURSE ---
pt ripped off condom cath. perineal care provided. new bedding/gown. new condom cath placed. pt repositioned. warm blankets provided as temp rectal 96.5F. resp even and unlabored. call diego within reach.
[2023-10-14] MEDS: Piperacillin Sodium/Tazobactam 3.375 GM in 0.9 % Sodium Chloride 50 ML IV ×3 (03:13→15:05)
--- NOTE | 2023-10-14 03:18 | PC.NURSE ---
Tube feeding diet acknowledged by this RN, requested clarification for orders on start time. Equipment not initially available in ED. Delayed initiation.
[2023-10-14] MEDS: Melatonin 3 MG TABLET 6 MG G-TUBE (03:53)
--- NOTE | 2023-10-14 04:02 | PC.NURSE ---
gtube feeding started at 30mL/hr per order; flush set per order as well. feeding infusing well. pt medicated per mar as pt stated hes having difficulty falling asleep. nad. call diego within reach.
[2023-10-14 05:22] LABS: Hematocrit 28.9 % (42.0-52.0); Mean Corpuscular HGB Conc 31.1 g/dl (31.0-36.0); Mean Corpuscular Hemoglobin 26.9 pg (27.0-33.0); Mean Corpuscular Volume 86.5 fL (80.0-98.0); Mean Platelet Volume 9.8 fL (9.4-12.4); Platelet Count 195 X10*3/uL (160-400); Red Blood Count 3.34 X10*6/uL (4.60-5.80); Red Cell Distribution Width 15.5 % (11.0-16.0); White Blood Count 10.2 X10*3/uL (4.8-10.8)
--- NOTE | 2023-10-14 05:36 | MHC.EDTECH ---
Pt was given a bed bath between this tech and his nurse. Pt needed total assistance with activity. Pt interacted and made jokes with us while being assisted. Will continue to monitor.
[2023-10-14] MEDS: Levothyroxine Sodium 112 MCG TABLET G-TUBE (06:26)
[2023-10-14] MEDS: 0.9 % Sodium Chloride 1,000 ML 100 ML IVCONT ×2 (06:26→15:57)
--- NOTE | 2023-10-14 07:16 | PC.NURSE ---
feeding tube adjusted to 40mL per order.
[2023-10-14] MEDS: Lactulose 20 GM/30 ML SOLUTION 10 GM G-TUBE ×2 (09:34→23:53)
[2023-10-14] MEDS: 0.9 % Sodium Chloride 1,000 ML 500 ML IVCONT (09:34)
[2023-10-14] MEDS: diazePAM 2 MG TABLET 3 MG G-TUBE (09:34)
[2023-10-14] MEDS: Bethanechol Chloride 25 MG TABLET 50 MG G-TUBE ×2 (10:29→23:52)
[2023-10-14] MEDS: Perphenazine 8 MG TABLET G-TUBE ×2 (10:29→23:52)
--- NOTE | 2023-10-14 10:39 | PC.NURSE ---
increased tube feeding to 50ml/hr
--- NOTE | 2023-10-14 11:16 | MHC.EDTECH ---
pt's condom catheter was removed d/t not working well and leaking. New one placed by this tech with orders from RN. pt tolerated new condom cath well with no issues, blankets given, call diego within reach.
--- NOTE | 2023-10-14 12:00 | MHC.CM.PN ---
PT IS A LTC RESIDENT OF [facility] [place] [facility] ON FILE: RITCHIE DIAMOND [phone] CM SPOKE TO GUARDIAN WHO REQUESTED COPY OF IMM BE MAILED TO HER. PCP: STEVO RAMOS DCP: RETURN TO [facility] [place] VIA BLS
--- NOTE | 2023-10-14 13:07 | P.PNIM_ITS ---
Subjective Subjective Date of Service: 10/14/23 Review of Systems Follow-up aspiration pneumonia Denies shortness of breath or cough Physical Exam 2 Vital Signs: Vital Signs: Last Vital Signs Temp 97.6 F 10/14/23 11:55 Pulse 81 10/14/23 11:55 Resp 12 10/14/23 11:55 BP 97/61 10/14/23 11:55 Pulse Ox 100 10/14/23 11:55 O2 Del Method Oxymask 10/14/23 11:55 O2 Flow Rate 2 10/14/23 11:55 BMI result Body Mass Index 16.4 Appearing in no acute distress lung sounds rhonchi heart regular rate rhythm, clear S1, S2 positive bowel sounds, abdomen is soft, nontender neuro patient is alert x3, no focal deficits Objective Data Active Medications Acetaminophen (Acetaminophen Oral Liquid 650 Mg/20.3 Ml Solution) 650 mg G-TUBE Q6H PRN PRN Reason: Pain, Mild (Pain Scale 1-3) Albuterol Sulfate (Albuterol Sulfate 90 Mcg 8 Gm Inhaler) 2 puff INHALE Q4H PRN PRN Reason: shortness of breath or wheezing Artificial Tears (Artificial Tears 15 Ml Drops) 1 drop EYE-BOTH Q4H PRN PRN Reason: Dry Eyes Atorvastatin Calcium (Atorvastatin Calcium 20 Mg Tablet) 20 mg G-TUBE BEDTIME [facility] Last Admin: 10/13/23 20:48 Dose: 20 mg Documented By: JOHNNIE Bethanechol Chloride (Bethanechol Chloride 25 Mg Tablet) 50 mg G-TUBE BID [facility] Last Admin: 10/14/23 10:29 Dose: 50 mg Documented By: ALBARO Bisacodyl (Bisacodyl 10 Mg Supp.Rect) 10 mg IN DAILY PRN PRN Reason: Constipation Diazepam (Diazepam 2 Mg Tablet) 3 mg G-TUBE BID [facility] Last Admin: 10/14/23 09:34 Dose: 3 mg Documented By: ALBARO Doxazosin Mesylate (Doxazosin Mesylate 2 Mg Tablet) 4 mg G-TUBE BEDTIME [facility] Last Admin: 10/13/23 20:48 Dose: 4 mg Documented By: JOHNNIE Enoxaparin Sodium (Enoxaparin Sodium 40 Mg/0.4 Ml Syringe) 40 mg SUBCUT Q24H [facility] Last Admin: 10/13/23 19:29 Dose: 40 mg Documented By: JOHNNIE Piperacillin Sod/Tazobactam (Sod 3.375 gm/ Sodium Chloride) 50 mls @ 100 mls/hr IV Q6H [facility] Last Infusion: 10/14/23 11:41 Dose: Infused Documented By: ALBARO Sodium Chloride (Ns) 1,000 mls @ 100 mls/hr IVCONT .Q10H [facility] Last Admin: 10/14/23 06:26 Dose: 100 mls/hr Documented By: ALICE Lactulose (Lactulose 20 Gm/30 Ml Solution) 10 gm G-TUBE BID [facility] Last Admin: 10/14/23 09:34 Dose: 10 gm Documented By: ALBARO Levothyroxine Sodium (Levothyroxine Sodium 112 Mcg Tablet) 112 mcg G-TUBE DAILY@0600 [facility] Last Admin: 10/14/23 06:26 Dose: 112 mcg Documented By: ALICE Melatonin (Melatonin 3 Mg Tablet) 6 mg G-TUBE BEDTIME PRN PRN Reason: Insomnia Last Admin: 10/14/23 03:53 Dose: 6 mg Documented By: ALICE Nicotine (Nicotine 7 Mg Patch.Td24) 7 mg TRANSDERMA Q24H PRN PRN Reason: Smoking Cessation Ondansetron HCl (Ondansetron Hcl 4 Mg/2 Ml Vial) 4 mg IVPUSH Q8H PRN PRN Reason: Nausea and Vomiting Perphenazine (Perphenazine 8 Mg Tablet) 8 mg G-TUBE BID [facility] Last Admin: 10/14/23 10:29 Dose: 8 mg Documented By: ALBARO Senna (Sennosides 8.6 Mg Tablet) 17.2 mg G-TUBE DAILY PRN PRN Reason: Constipation Sodium Biphosphate/Sodium Phosphate (Sodium Phosphate,Ector-Dibasic 133 Ml Enema) 118 ml IN DAILY PRN PRN Reason: Constipation Sodium Chloride (0.9 % Sodium Chloride Flush 3 Ml Syringe) 3 ml IVFLUSH QSHIFT [facility] Last Admin: 10/14/23 07:36 Dose: Not Given Documented By: ALBARO Non-Admin Reason: IV Running Labs 10/14/23 04:50 10/13/23 13:51 Labs: Laboratory Results - last 24 hr 10/13/23 10/13/23 10/13/23 13:51 13:53 14:37 MCV 87.4 MCH 27.0 MCHC 30.9 L RDW 15.5 Plt Count 212 D MPV 9.9 Immature Gran % (Auto) 0.3 Neut % (Auto) 87.5 H Lymph % (Auto) 3.1 L Ector % (Auto) 8.9 Eos % (Auto) 0.0 Baso % (Auto) 0.2 Lymph # (Auto) 0.5 L Ector # (Auto) 1.3 H Eos # (Auto) 0.0 Baso # (Auto) 0.0 Abs Immat Gran (auto) 0.05 H Absolute Neuts (auto) 12.5 H Absolute Nucleated RBC 0.000 Nucleated RBC % (auto) 0.0 PT 10.8 L INR 0.9 VBG pH 7.34 VBG pCO2 47 VBG pO2 51 VBG HCO3 26 VBG O2 Saturation 76.0 VBG Base Excess 0.0 Anion Gap 16 Estim Creat Clear Calc 41.8 Estimated GFR > 60 Random Glucose 89 Lactic Acid 4.3 H* Lactic Acid F/U @ 2Hr Lactic Acid F/U @ 4Hr Calcium 10.2 D Magnesium 2.5 Total Bilirubin 0.3 Direct Bilirubin 0.1 AST 25 ALT 18 Alkaline Phosphatase 148 H Troponin I High Sens < 2.7 B-Natriuretic Peptide 29 Total Protein 7.6 Albumin 3.9 Urine Color Urine Appearance Urine pH Ur Specific Alma Urine Protein Urine Glucose (UA) Urine Ketones Urine Blood Urine Nitrite Ur Leukocyte Esterase Urine RBC Urine WBC Ur Squamous Epith Cells Urine Bacteria Hyaline Casts Influenza Type A (PCR) NEGATIVE Influenza Type B (PCR) NEGATIVE RSV RNA Qual (PCR) NEGATIVE SARS-CoV-2 RNA (RT-PCR) NEGATIVE 10/13/23 10/13/23 10/13/23 16:07 18:37 20:40 MCV MCH MCHC RDW Plt Count MPV Immature Gran % (Auto) Neut % (Auto) Lymph % (Auto) Ector % (Auto) Eos % (Auto) Baso % (Auto) Lymph # (Auto) Ector # (Auto) Eos # (Auto) Baso # (Auto) Abs Immat Gran (auto) Absolute Neuts (auto) Absolute Nucleated RBC Nucleated RBC % (auto) PT INR VBG pH VBG pCO2 VBG pO2 VBG HCO3 VBG O2 Saturation VBG Base Excess Anion Gap Estim Creat Clear Calc Estimated GFR Random Glucose Lactic Acid Lactic Acid F/U @ 2Hr 3.1 H* Lactic Acid F/U @ 4Hr 1.1 Calcium Magnesium Total Bilirubin Direct Bilirubin AST ALT Alkaline Phosphatase Troponin I High Sens B-Natriuretic Peptide Total Protein Albumin Urine Color Dark Yellow Urine Appearance Turbid Urine pH 8.5 Ur Specific Alma >= 1.030 H Urine Protein 100 (2+) H Urine Glucose (UA) Negative Urine Ketones Negative Urine Blood Large (3+) H Urine Nitrite Negative Ur Leukocyte Esterase Large (3+) H Urine RBC >20 H Urine WBC >50 H Ur Squamous Epith Cells 0-2 Urine Bacteria 4+ Hyaline Casts 11-20 Influenza Type A (PCR) Influenza Type B (PCR) RSV RNA Qual (PCR) SARS-CoV-2 RNA (RT-PCR) 10/14/23 04:50 MCV 86.5 MCH 26.9 L MCHC 31.1 RDW 15.5 Plt Count 195 MPV 9.8 Immature Gran % (Auto) Neut % (Auto) Lymph % (Auto) Ector % (Auto) Eos % (Auto) Baso % (Auto) Lymph # (Auto) Ector # (Auto) Eos # (Auto) Baso # (Auto) Abs Immat Gran (auto) Absolute Neuts (auto) Absolute Nucleated RBC 0.000 Nucleated RBC % (auto) 0.0 PT INR VBG pH VBG pCO2 VBG pO2 VBG HCO3 VBG O2 Saturation VBG Base Excess Anion Gap Estim Creat Clear Calc Estimated GFR Random Glucose Lactic Acid Lactic Acid F/U @ 2Hr Lactic Acid F/U @ 4Hr Calcium Magnesium Total Bilirubin Direct Bilirubin AST ALT Alkaline Phosphatase Troponin I High Sens B-Natriuretic Peptide Total Protein Albumin Urine Color Urine Appearance Urine pH Ur Specific Alma Urine Protein Urine Glucose (UA) Urine Ketones Urine Blood Urine Nitrite Ur Leukocyte Esterase Urine RBC Urine WBC Ur Squamous Epith Cells Urine Bacteria Hyaline Casts Influenza Type A (PCR) Influenza Type B (PCR) RSV RNA Qual (PCR) SARS-CoV-2 RNA (RT-PCR) Microbiology Microbiology Results: Microbiology 10/13/23 20:40 Urine Culture - Preliminary Urine clean catch - Urine valdes top Culture too young to evaluate. Assessment and Plan (1) Lung mass: Status: Acute (2) Aspiration pneumonia: Status: Acute Plan Pt is a 73-year-old male with a PMH significant for?TBI, AAA s/p elective repair, COPD on prn home O2, hypothyroidism, HTN, HLD, BPH, frequent falls, and paranoid schizophrenia who presents to the ED from SNF who presents to the ED for evaluation of hypoxia and confusion after possible aspiration event. Pt will be admitted to the hospital for acute hypoxic respiratory failure in the setting of likely aspiration pneumonia. Acute hypoxic respiratory failure in setting of likely aspiration pneumonia with sepsis Patient initially satting at 76% on RA; with coarse expiratory breath sounds upon examination Meets sepsis criteria: Hypothermia, tachycardia, tachypnea, leukocytosis; lactic acid 4.3 with repeat 3.1 and 1.1 Zosyn, started 10/13/2023 Aspiration precautions Titrate supplemental O2 >92, wean as tolerated Hypothermia Likely secondary to sepsis s/p Nancy Hugger Follow temp Diet/Protein calorie malnutrition. BMI 16.4 Patient with TBI, dysphagia, dysarthria Osmolite 1.5 through PEG tube COPD Not in acute exacerbation Continue home inhalers Duonebs prn Hypothyroidism Continue levothyroxine Hx of TBI, paranoid schizophrenia Continue home meds Lung mass CT redemonstrated tubular like mass in left upper lobe that has increased in size since previous scan on 08/28/2023 Follow-up outpatient for possible biopsy Full Code Attending:?Dr. Tyler DVT Prophylaxis: Lovenox continue hospital stay for treatment of?acute hypoxic respiratory failure and hypothermia in the setting likely aspiration pneumonia with sepsis. Given patient's many significant comorbidities, he will require hospitalization for administration of IV antibiotics, treatment with Nancy Hugger, and close monitoring of labs and respiratory status. Quality Stroke Does the patient have a stroke diagnosis?: No VTE Prior VTE?: No VTE Risk Level:: Medical - moderate - high VTE Device Contraindication: Treatment Not Indicated VTE Drug Contraindication: N/A - Med Ordered
--- NOTE | 2023-10-14 13:54 | P.CDIM_ITS ---
PROVIDER RESPONSE TEXT: To clarify, the appropriate diagnosis supported by the clinical indicators: Moderate QUERY TEXT: PHYSICIAN'S DOCUMENTATION REQUEST Date of Query: 10/14/2023 01:46 PM EDT Patient Name: Mariusz Kirkland Admit Date: 10/13/2023 Dear Nathalia Rueda, A review of the medical record indicates additional documentation may be needed. Please review below and update the documentation accordingly. Clinical indicators: BMI 16.4 49kg Tube feeding diet Progress note: Diet/protein calorie malnutrition If possible, please provide additional specificity regarding the severity of the malnutrition using t he above information: Mild Moderate Severe Other (explain) Clinically unable to determine (explain) Thank you, Eunice Anna, CCS, CDIS Use of terms such as suspected, likely, concern for, or probable (associated with a specific diagnosi s that is being evaluated, monitored, or treated as if it exists) are acceptable and can be coded in the inpatient se tting, when documented at the time of discharge. Please use your independent medical judgment in providing your response. THIS QUERY IS PART OF THE PERMANENT MEDICAL RECORD
--- NOTE | 2023-10-14 14:33 | PC.NURSE ---
late entry 1315 increased pts tube feeding to 60ml/hr
--- NOTE | 2023-10-14 15:40 | PC.NURSE ---
Addendum entered by Nilda Leon RN 10/14/23 15:57: Per Nathalia CORLEY, given another liter bolus of NS Original Note: tiger connect sent to Nathalia CORLEY r/t pts BP being soft following this mornings liter bolus of fluids, MAPs fluctuating around 65
[2023-10-14] MEDS: 0.9 % Sodium Chloride 500 ML 999 ML IV (16:11)
[2023-10-14] MEDS: Enoxaparin Sodium 40 MG/0.4 ML SYRINGE SUBCUT (23:51)
[2023-10-14] MEDS: Atorvastatin Calcium 20 MG TABLET G-TUBE (23:52)
[2023-10-14] MEDS: Doxazosin Mesylate 2 MG TABLET 4 MG G-TUBE (23:52)
[2023-10-15] MEDS: Piperacillin Sodium/Tazobactam 3.375 GM in 0.9 % Sodium Chloride 50 ML IV ×3 (00:09→14:13)
[2023-10-15] MEDS: diazePAM 2 MG TABLET 3 MG G-TUBE ×2 (00:15→08:17)
[2023-10-15] MEDS: 0.9 % Sodium Chloride Flush 3 ML SYRINGE IVFLUSH (00:15)
[2023-10-15 03:16] VITALS: BP 117/70; PULSE 56; RESP 19; TEMP 36.5; O2SAT 100
[2023-10-15] MEDS: 0.9 % Sodium Chloride 1,000 ML 100 ML IVCONT ×2 (03:32→14:02)
[2023-10-15] MEDS: Levothyroxine Sodium 112 MCG TABLET G-TUBE (05:18)
[2023-10-15 07:44] VITALS: BP 128/77; PULSE 70; RESP 20; TEMP 36; O2SAT 100
[2023-10-15] MEDS: Lactulose 20 GM/30 ML SOLUTION 10 GM G-TUBE (08:12)
[2023-10-15] MEDS: Perphenazine 8 MG TABLET G-TUBE (08:12)
[2023-10-15] MEDS: Bethanechol Chloride 25 MG TABLET 50 MG G-TUBE (08:12)
[2023-10-15 10:13] VITALS: BMI 18.0
--- NOTE | 2023-10-15 10:22 | MHC.CLN ---
PT IS MODERATELY MALNOURISHED PT WITH MILDLY DEPLETED SUBCUTANEOUS FAT AND MUSCLE MASS WITH 20% SIGNIFICANT WT LOSS X 1 YEAR WITH ASP PNA HX AND RECENTLY PLACE PEG TUBE 08/2023 PT IS FAMILIAR TO FACILITY FROM PREVIOUS ADMISSIONS NOTED WT UP 5% X 6 MONTHS BUT REMAINS UNDER WT FOR HT AT THIS TIME RECOMMEND JEVITY 1.0 AT MAX GOAL RATE 60ML/HR X 24 HOURS CONTINUOUS WITH 120ML FREE WATER FLUSHES Q 8 HRS TO PROVIDE 1526KCALS (31KCALS/KG), 64G PROTEIN (1.3G/KG), 1562ML TOTAL WATER FROM FORMULA AND FLUSHES (32ML/KG) MONITOR TOLERANCE, RESIDUALS AND LYTES SEE ALSO FULL CLINICAL NUTRITION ASSESSMENT
[2023-10-15 11:11] VITALS: BP 98/61; PULSE 62; RESP 20; TEMP 36.1; O2SAT 97
--- NOTE | 2023-10-15 13:44 | P.PNIM_ITS ---
Subjective Subjective Date of Service: 10/15/23 Review of Systems Follow-up aspiration pneumonia Denies shortness of breath or cough Physical Exam 2 Vital Signs: Vital Signs: Last Vital Signs Temp 96.9 F 10/15/23 11:11 Pulse 62 10/15/23 11:11 Resp 20 10/15/23 11:11 BP 98/61 10/15/23 11:11 Pulse Ox 97 10/15/23 11:11 O2 Del Method Room Air 10/15/23 11:11 O2 Flow Rate 1 10/15/23 07:44 BMI result Body Mass Index 18.0 Appearing in no acute distress lung sounds are clear to auscultation heart regular rate rhythm, clear S1, S2 positive bowel sounds, abdomen is soft, nontender neuro patient is alert x3, no focal deficits Objective Data Active Medications Acetaminophen (Acetaminophen Oral Liquid 650 Mg/20.3 Ml Solution) 650 mg G-TUBE Q6H PRN PRN Reason: Pain, Mild (Pain Scale 1-3) Albuterol Sulfate (Albuterol Sulfate 90 Mcg 8 Gm Inhaler) 2 puff INHALE Q4H PRN PRN Reason: shortness of breath or wheezing Artificial Tears (Artificial Tears 15 Ml Drops) 1 drop EYE-BOTH Q4H PRN PRN Reason: Dry Eyes Atorvastatin Calcium (Atorvastatin Calcium 20 Mg Tablet) 20 mg G-TUBE BEDTIME [facility] Last Admin: 10/14/23 23:52 Dose: 20 mg Documented By: MAGNOLIA Bethanechol Chloride (Bethanechol Chloride 25 Mg Tablet) 50 mg G-TUBE BID [facility] Last Admin: 10/15/23 08:12 Dose: 50 mg Documented By: LONNIE Bisacodyl (Bisacodyl 10 Mg Supp.Rect) 10 mg PA DAILY PRN PRN Reason: Constipation Diazepam (Diazepam 2 Mg Tablet) 3 mg G-TUBE BID [facility] Last Admin: 10/15/23 08:17 Dose: 3 mg Documented By: LONNIE Doxazosin Mesylate (Doxazosin Mesylate 2 Mg Tablet) 4 mg G-TUBE BEDTIME [facility] Last Admin: 10/14/23 23:52 Dose: 4 mg Documented By: MAGNOLIA Enoxaparin Sodium (Enoxaparin Sodium 40 Mg/0.4 Ml Syringe) 40 mg SUBCUT Q24H [facility] Last Admin: 10/14/23 23:51 Dose: 40 mg Documented By: MAGNOLIA Piperacillin Sod/Tazobactam (Sod 3.375 gm/ Sodium Chloride) 50 mls @ 100 mls/hr IV Q6H [facility] Last Infusion: 10/15/23 08:59 Dose: Infused Documented By: LONNIE Sodium Chloride (Ns) 1,000 mls @ 100 mls/hr IVCONT .Q10H [facility] Last Admin: 10/15/23 03:32 Dose: 100 mls/hr Documented By: MAGNOLIA Lactulose (Lactulose 20 Gm/30 Ml Solution) 10 gm G-TUBE BID [facility] Last Admin: 10/15/23 08:12 Dose: 10 gm Documented By: LONNIE Levothyroxine Sodium (Levothyroxine Sodium 112 Mcg Tablet) 112 mcg G-TUBE DAILY@0600 [facility] Last Admin: 10/15/23 05:18 Dose: 112 mcg Documented By: MAGNOLIA Melatonin (Melatonin 3 Mg Tablet) 6 mg G-TUBE BEDTIME PRN PRN Reason: Insomnia Last Admin: 10/14/23 03:53 Dose: 6 mg Documented By: ALICE Nicotine (Nicotine 7 Mg Patch.Td24) 7 mg TRANSDERMA Q24H PRN PRN Reason: Smoking Cessation Ondansetron HCl (Ondansetron Hcl 4 Mg/2 Ml Vial) 4 mg IVPUSH Q8H PRN PRN Reason: Nausea and Vomiting Perphenazine (Perphenazine 8 Mg Tablet) 8 mg G-TUBE BID [facility] Last Admin: 10/15/23 08:12 Dose: 8 mg Documented By: LONNIE Senna (Sennosides 8.6 Mg Tablet) 17.2 mg G-TUBE DAILY PRN PRN Reason: Constipation Sodium Biphosphate/Sodium Phosphate (Sodium Phosphate,Bond-Dibasic 133 Ml Enema) 118 ml PA DAILY PRN PRN Reason: Constipation Sodium Chloride (0.9 % Sodium Chloride Flush 3 Ml Syringe) 3 ml IVFLUSH QSHIFT [facility] Last Admin: 10/15/23 08:12 Dose: Not Given Documented By: OLNNIE Non-Admin Reason: IV Running Labs 10/14/23 04:50 10/13/23 13:51 Microbiology Microbiology Results: Microbiology 10/13/23 20:40 Urine Culture - Final Urine clean catch - Urine valdes top 10/13/23 14:04 Blood Culture - Preliminary Blood - Venous No growth after 24 hours. 10/13/23 14:03 Blood Culture - Preliminary Blood - Venous No growth after 24 hours. Assessment and Plan (1) Lung mass: Status: Acute (2) Aspiration pneumonia: Status: Acute Plan Pt is a 73-year-old male with a PMH significant for?TBI, AAA s/p elective repair, COPD on prn home O2, hypothyroidism, HTN, HLD, BPH, frequent falls, and paranoid schizophrenia who presents to the ED from SNF who presents to the ED for evaluation of hypoxia and confusion after possible aspiration event. Pt will be admitted to the hospital for acute hypoxic respiratory failure in the setting of likely aspiration pneumonia. Acute hypoxic respiratory failure in setting of likely aspiration pneumonia with sepsis Patient initially satting at 76% on RA; with coarse expiratory breath sounds upon examination Meets sepsis criteria: Hypothermia, tachycardia, tachypnea, leukocytosis; lactic acid 4.3 with repeat 3.1 and 1.1 Zosyn, started 10/13/2023 Aspiration precautions off oxygen Hypothermia Likely secondary to sepsis s/p Nancy Hugger Follow temp Diet/Protein calorie malnutrition. BMI 16.4 Patient with TBI, dysphagia, dysarthria Osmolite 1.5 through PEG tube COPD Not in acute exacerbation Continue home inhalers Duonebs prn Hypothyroidism Continue levothyroxine Hx of TBI, paranoid schizophrenia Continue home meds Lung mass CT redemonstrated tubular like mass in left upper lobe that has increased in size since previous scan on 08/28/2023 Follow-up outpatient for possible biopsy Full Code Attending:?Dr. Tyler DVT Prophylaxis: Lovenox DISPO back to [facility] one when medically clear continue hospital stay for treatment of?acute hypoxic respiratory failure and hypothermia in the setting likely aspiration pneumonia with sepsis. Given patient's many significant comorbidities, he will require hospitalization for administration of IV antibiotics, treatment with Nancy Hugger, and close monitoring of labs and respiratory status. Quality Stroke Does the patient have a stroke diagnosis?: No VTE Prior VTE?: No VTE Risk Level:: Medical - moderate - high VTE Device Contraindication: Treatment Not Indicated VTE Drug Contraindication: N/A - Med Ordered
[2023-10-15 15:16] VITALS: BP 114/55; PULSE 71; RESP 18; TEMP 36.1; O2SAT 97
[2023-10-15 19:54] VITALS: BP 133/72; PULSE 74; RESP 20; TEMP 36.6; O2SAT 99
[2023-10-16] VITALS: BP 157/73; PULSE 55; RESP 20; TEMP 36.1; O2SAT 96
[2023-10-16] MEDS: Lactulose 20 GM/30 ML SOLUTION 10 GM G-TUBE ×2 (00:01→08:42)
[2023-10-16] MEDS: diazePAM 2 MG TABLET 3 MG G-TUBE ×2 (00:02→08:43)
[2023-10-16] MEDS: Perphenazine 8 MG TABLET G-TUBE ×2 (00:03→08:43)
[2023-10-16] MEDS: Enoxaparin Sodium 40 MG/0.4 ML SYRINGE SUBCUT (00:03)
[2023-10-16] MEDS: Bethanechol Chloride 25 MG TABLET 50 MG G-TUBE ×2 (00:03→08:43)
[2023-10-16] MEDS: Atorvastatin Calcium 20 MG TABLET G-TUBE (00:03)
[2023-10-16] MEDS: Piperacillin Sodium/Tazobactam 3.375 GM in 0.9 % Sodium Chloride 50 ML IV ×3 (00:05→12:37)
[2023-10-16] MEDS: 0.9 % Sodium Chloride Flush 3 ML SYRINGE IVFLUSH ×2 (00:05→08:43)
[2023-10-16 03:03] VITALS: BP 129/81; PULSE 60; RESP 20; TEMP 36.3; O2SAT 95
[2023-10-16] MEDS: Levothyroxine Sodium 112 MCG TABLET G-TUBE (05:50)
[2023-10-16 07:13] VITALS: BP 125/78; PULSE 65; RESP 20; TEMP 36.2; O2SAT 98
[2023-10-16 11:09] VITALS: BP 127/77; PULSE 79; RESP 20; TEMP 36.2; O2SAT 98
--- NOTE | 2023-10-16 11:21 | MHC.CLN ---
F/U PT IS MODERATELY MALNOURISHED SEE FULL CLINICAL NUTRITION ASSESSMENT DATED 10/15/23 PT RECEIVING JEVITY 1.0 AT MAX GOAL RATE 60ML/HR X 24 HOURS CONTINUOUS WITH 120ML FREE WATER FLUSHES Q 8 HRS PROVIDES 1526KCALS (31KCALS/KG), 64G PROTEIN (1.3G/KG), 1562ML TOTAL WATER FROM FORMULA AND FLUSHES (32ML/KG) MONITOR TOLERANCE, RESIDUALS AND LYTES
--- NOTE | 2023-10-16 11:26 | MHC.CM.PN ---
Addendum entered by Vy Valles 10/16/23 11:51: Correction: transport set up through [facility] ambulance for 2pm today. Original Note: Pt is medically cleared for D/C back to LTC at [facility], transport set up via [facility] at 2pm today. Pts guardian Latrice was called and notified.
--- NOTE | 2023-10-16 13:40 | PM.DS ---
DS: Providers Provider Date of Service: 10/16/23 Date of admission: 10/13/23 18:41 Date of discharge: 10/16/23 Primary care physician: Jeffrey Delatorre DO DS: Diagnosis Discharge Diagnosis (1) Lung mass: Status: Acute (2) Aspiration pneumonia: Status: Acute DS: Summary Hospital Course Hospital Course: 73-year-old male with a PMH significant for?TBI, AAA s/p elective repair, COPD on prn home O2, hypothyroidism, HTN, HLD, BPH, frequent falls, and paranoid schizophrenia who presents to the ED from SNF who presents to the ED for evaluation of hypoxia and confusion after possible aspiration event. Patient is a resident of [facility] and has marked dysarthria and dysphagia, and multiple episodes of aspiration in the past. Recently had PEG tube install and started tube feeding. Patient alert and oriented to self only, and thus not capable of providing accurate HPI which is instead taken from chart and provider review. Per SNF staff, patient was eating lunch when they heard him coughing found him to be hypoxic and more confused than normal. Patient primarily has tube feeding diet, though is also allowed a pureed diet at facility if he is directly supervised by staff. In the ED pt was hypothermic as low as 91.6, tachycardic to 108 tachypneic up to 28, and hypoxic as low as 76% on RA. Labs were significant for leukocytosis of 14.3, lactic acid of 4.3 with repeat 3.1, otherwise grossly unremarkable. Stable H&H. No significant electrolyte abnormalities. Renal function WNL. Hepatic function WNL. Troponin negative. BNP WNL. CXR was unremarkable. Chest CTA showed no evidence of pulmonary embolism but showed marked emphysematous changes of the lungs, and redemonstrated tubular like mass in the left upper lobe that has increased in size since scan on 08/28/2023, suspicious for neoplasm. EKG demonstrated normal sinus rhythm with QTc of 506. Pt was treated with IVF and cefepime. Pt will be admitted to the hospital for acute hypoxic respiratory failure in the setting of likely aspiration pneumonia. Hospital Course Patient admitted to telemetry where monitor failed to demonstrate any acute dysrhythmias. His hypothermia resolved. He was treated with Zosyn and improved without incident. At this point in time he is medically acceptable for transfer back to [facility] to complete a course of oral Augmentin. CTA of the chest did demonstrate increase in size of chest mass which will be worked up and followed as an outpatient Time Attestation Discharge Coordination Time (in mins): 35 Quality: Safe Use of Opioids Does Pt have an Active Cancer Diagnosis on the Problem List?: No Quality: Stroke Does the patient have a stroke diagnosis?: No Physical Exam Vital Signs: Vital Signs: Last Vital Signs Temp 97.2 F 10/16/23 11:09 Pulse 79 10/16/23 11:09 Resp 20 10/16/23 11:09 BP 127/77 10/16/23 11:09 Pulse Ox 98 10/16/23 11:09 O2 Del Method Room Air 10/16/23 11:09 O2 Flow Rate 1 10/15/23 07:44 BMI result Body Mass Index 18.0 Const: Other: Awake alert no acute distress Resp: Other: Diminished at bases with scattered expiratory wheezes Cardio: Other: No S4; positive S1-S2; no S3 murmurs rubs or gallops GI: Other: Soft nontender nondistended normoactive bowel sounds Extrem: Other: No edema bilaterally DS: Data Data Completed and Pending Completed studies during hospitalization [Text1]: Procedures Introduction of Vasopressor into Peripheral Vein, Percutaneous Approach (08/28/23) Restriction of Abdominal Aorta with Intraluminal Device, Percutaneous Approach (12/24/22) Labs on day of discharge: Preliminary micro results at discharge 10/13/23 14:04 Blood Culture - Preliminary Blood - Venous No growth after 48 hours. 10/13/23 14:03 Blood Culture - Preliminary Blood - Venous No growth after 48 hours. Discharge Plan Discharge Anticipated Discharge Date/Time: 10/16/23 11:54 Patient Disposition: er [facility] Discharge Diagnosis: Aspiration pneumonia Referrals: [facility] [Outside] - 1 Week Jeffrey Delatorre DO [Primary Care Provider] - 1 Week Discharge Medications: New amoxicillin-pot clavulanate 875-125 mg tablet 1 tab PO BID Qty: 20 0RF Continued perphenazine 8 mg tablet 8 mg feeding tube BID terazosin 5 mg capsule 5 mg feeding tube BEDTIME bethanechol chloride 50 mg tablet 50 mg feeding tube BID albuterol sulfate 90 mcg/actuation HFA aerosol inhaler 2 puff inhalation Q4H PRN (Reason: shortness of breath or wheezing) lactulose 10 gram/15 mL solution 15 ml feeding tube BID simvastatin 40 mg tablet 40 mg feeding tube BEDTIME levothyroxine 112 mcg tablet 112 mcg feeding tube DAILY@0600 bisacodyl [Dulcolax (bisacodyl)] 10 mg suppository 10 mg MT DAILY PRN (Reason: Constipation) acetaminophen 325 mg capsule 650 mg feeding tube Q6H PRN (Reason: Fever Or Pain) Fleet Enema 19-7 gram/118 mL enema 118 ml MT DAILY PRN (Reason: Constipation) polyvinyl alcohol [Artificial Tears (polyvin alc)] 1.4 % drops 1 drp ophthalmic (eye) Q4H PRN (Reason: Dry Eyes) nicotine 7 mg/24 hr patch 24 hour 1 patch transdermal Q24H PRN (Reason: Smoking Cessation) sennosides [senna] 8.6 mg tablet 17.2 mg feeding tube DAILY PRN (Reason: Constipation) diazepam 2 mg tablet 3 mg feeding tube BID Discharge Orders: Discharge Order (Routine); Ordered 10/16/23 Ordered By: Jeffrey Delatorre Diet: Advance to usual diet Activity on Discharge: As tolerated Stand Alone Forms: Patient Portal Discharge page Care Plan Goals: Resume all pre-hospital medications along with tube feeds as per [facility] Concerns: Augmentin 875 twice daily for 10 days has been added to his regimen Plan of Treatment: Resume all therapies and treatment as prior to hospitalization Assessment: See discharge summary
[2023-10-16 15:25] VITALS: BP 137/73; PULSE 69; RESP 18; TEMP 36.2; O2SAT 95
== END 2023-10-16 18:11 | DRG 871 ==
LOC: HO.ED 14:26 → HO.EDOVER 19:01 → HO.IMC 10-14 15:55
PROVIDERS: Nurse Practitioner Family; Admitting Provider Student in an Organized Health Care Education/Training Program; Emergency Provider Student in an Organized Health Care Education/Training Program; PCP Hospitalist; Visit Provider Hospitalist
DX: A41.9 Sepsis, unspecified organism (principal); J69.0 Pneumonitis due to inhalation of food and vomit; J96.01 Acute respiratory failure with hypoxia; E44.0 Moderate protein-calorie malnutrition; Z68.1 Body mass index [BMI] 19.9 or less, adult; F20.0 Paranoid schizophrenia; J44.9 Chronic obstructive pulmonary disease, unspecified; R91.8 Other nonspecific abnormal finding of lung field; Z99.81 Dependence on supplemental oxygen; Z20.822 Contact with and (suspected) exposure to COVID-19; E78.5 Hyperlipidemia, unspecified; Z93.1 Gastrostomy status; R68.0 Hypothermia, not associated with low environmental temperature; Z79.890 Hormone replacement therapy; Z79.899 Other long term (current) drug therapy
CPT/HCPCS: 0241U; 36415; 71045; 71275; 80048; 80076; 81001; 82803; 83605; 83735; 83880; 84484; 85025; 85027; 85610; 87040; 87086; 93005; 99285; J0692; J1650; J2543; Q9967

== ENCOUNTER → 2023-10-13 13:48 | Outpatient (BNV) | payer MEDICARE, MEDICAID, SELFPAY | PROVIDERS: Admitting Provider Student in an Organized Health Care Education/Training Program; Emergency Provider Student in an Organized Health Care Education/Training Program; PCP Hospitalist; Visit Provider Internal Medicine Cardiovascular Disease | DX: R06.02 Shortness of breath (principal) | CPT/HCPCS: 93010 ==

== ENCOUNTER → 2023-10-13 18:41 | Outpatient (BNV) | payer MEDICARE, MEDICAID, SELFPAY | PROVIDERS: Admitting Provider Student in an Organized Health Care Education/Training Program; Emergency Provider Student in an Organized Health Care Education/Training Program; PCP Hospitalist; Visit Provider Nurse Practitioner Acute Care | DX: J96.01 Acute respiratory failure with hypoxia (principal); T68.XXXA Hypothermia, initial encounter | CPT/HCPCS: 99223; 99232; 99239 ==

== ENCOUNTER 2023-11-13 10:56 | Outpatient (AMB) | payer MEDICARE, MEDICAID, SELFPAY ==
--- NOTE | 2023-11-13 11:02 | A.OFFVIS_ITS ---
Intake Intake Visit Reasons: 6m follow up confirmed Intake Note: Patient presents today for a follow up on: Meds- Terazosin, Bethanechol chloride Allergies to Antibiotic- No Known Allergies Blood Thinner- None Post Void Residual: >175ml Patient Symptoms: None Furnace Helper Required: No Accompanied by: [facility] Supervisor Lace Tearing Allergies cefpodoxime Allergy (Intermediate, Verified 11/13/23 11:14) Rash HPI HPI Comments History of Present Illness Details Mariusz is a pleasant male. He is a resident of [facility]. 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 Cystoscopy - large bladder capacity with debris Optimize bladder emptying with combination bethanechol and terazosin Six month review [facility] Medical History Swallowing problem Pulmonary emphysema COVID-19 vaccine series completed History of COVID-19 Resides in nursing home facility History of falling Personal history of traumatic brain injury Other specified intracranial injury without loss of consciousness, subsequent encounter Paralytic gait Benign prostatic hyperplasia without lower urinary tract symptoms Pain in left hip Primary generalized (osteo)arthritis Constipation, unspecified Impulse disorder, unspecified Trichotillomania Alcohol dependence, uncomplicated Hyperlipidemia, unspecified Hypothyroidism, unspecified Weakness Unspecified lack of coordination Muscle weakness (generalized) Age-related nuclear cataract, bilateral Unspecified abnormalities of gait and mobility Personal history of COVID-19 Repeated falls Lefort i fracture, initial encounter for closed fracture Unsteadiness on feet Other abnormalities of gait and mobility Dysphagia, oropharyngeal phase Paranoid schizophrenia Surgical History Status post AAA (abdominal aortic aneurysm) repair History of facial surgery Family History Unknown No problems noted. Social History Household Members: None Housing: Senior Living Housing Other:: [facility] Are you a primary career development manager to a significant other at home: No Do you presently have visiting nurse or other home services: No Unable to assess alcohol history related to: Unknown Comment: sitter Patient Tobacco Use Status: Tobacco use Unknown Tobacco use type: Cigarette Cigarettes Per Day: 4 Years Smoked: 57 Advance Directives Date on File: 12/05/22 service: No Current occupational status: disabled Review of Systems Const Denies chills and Denies fever(s) Card Reports no additional complaints and Denies syncope Resp Denies cough GI Denies abdominal pain and Denies heartburn Reports as per HPI and Denies change in libido Neuro Denies syncope Psych Denies change in libido Endo Denies change in libido Physical Exam Const General: cooperative, healthy appearing, comfortable and no acute distress Orientation/consciousness: patient oriented x3 HEENT Face and sinus: Yes normal facial exam Mouth: moist mucous membranes Neck Neck: Yes normal visual inspection, Yes full ROM and Yes trachea midline Chest Chest palpation & inspection: normal inspection of the chest Resp Effort & Inspection: normal respiratory effort, able to speak in complete senten yvrose and no respiratory distress GI Inspection: Yes normal to inspection Back/Spine/Pelvis Cervical Spine: normal cervical lordosis Thoracic/Lumbar Spine: thoracic and lumbar spine normal to inspection Skin General skin exam: no rashes or lesions noted Neuro General: patient oriented x3, gait normal, tone normal and moves all extremities Extrem General: Yes normal to inspection and Yes capillary refill normal Office Procedures Post Void Residual Post Residual Void Post Void Residual (PVR): [id number] Void Residual by ultrasound Assessment & Plan Assessment & Plan (1) Urinary incontinence: Code(s): R32 - Unspecified urinary incontinence (2) Bladder wall thickening: Code(s): N32.89 - Other specified disorders of bladder Plan Continue terazosin and bethanechol bladder emptying Orders: Orders AMB Post Void Residual by ultrasound Today R33.9 - Retention of urine, unspecified Patient Instructions: Imaging studies, laboratory and physical exam results were discussed and reviewed in detail. No major barriers to patient understanding were identified. An opportunity to ask questions regarding the treatment plan was provided. All questions were answered. The patient expressed understanding and agreement with the above treatment plan. The patient is aware they should contact our office by phone for worsening of their current condition or the appearance of new urologic symptoms. Compliance is encouraged with any medications and followup testing that is ordered. It is a privilege to participate in the urologic care of your patient. If you have any questions or concerns regarding treatment for the above conditions, or other urologic issues, please do not hesitate to contact me. The office telephone contact is [phone]. This note is constructed using voice recognition software. While every effort has been made to ensure accuracy tire vulcanizer errors may have been included. Yours sincerely, Dr Vasquez Romero MD, [facility] - Urology Providers of Expert, Compassionate Care for the Genitourinary System Coding Level of Care Code Est Pt Level 3 (62895) Diagnoses Urinary incontinence R32 Bladder wall thickening N32.89 CPT Codes Post Residual Void - PVR CPT Code: 37144-Itcd Void Residual by ultrasound ([id number])
== END 2023-11-13 11:40 | disposition home or self-care (01) ==
PROVIDERS: PCP Hospitalist; Visit Provider Urology
DX: R32 Unspecified urinary incontinence (principal); N32.89 Other specified disorders of bladder
CPT/HCPCS: 99213

== ENCOUNTER → 2023-11-13 10:56 | Outpatient (BNVA) | payer MEDICARE, MEDICAID, SELFPAY | PROVIDERS: PCP Hospitalist; Visit Provider Urology | DX: R32 Unspecified urinary incontinence (principal); N32.89 Other specified disorders of bladder | CPT/HCPCS: 51798; 99212 ==

== ENCOUNTER 2023-12-16 08:41 | Inpatient (IN) | payer MEDICARE, MEDICAID, SELFPAY ==
[2023-12-16] VITALS (10 sets, daily range): BP systolic 98–129; BP diastolic 66–82; PULSE 77–92; RESP 13–22; TEMP 36.2–36.9; O2SAT 93–97; BMI 17.0; BMI 19.0
--- NOTE | ~2023-12-16 | XR_ITS ---
EXAMINATION: XR CHEST CLINICAL INFORMATION: Cough COMPARISON: 10/13/2023 TECHNIQUE: Frontal view of the chest was obtained. FINDINGS: No significant abnormality is noted involving the heart, lungs, mediastinum, bony thorax or soft tissues. XR/XR chest 1V IMPRESSION: Unremarkable examination.
--- NOTE | ~2023-12-16 | IR_ITS ---
EXAMINATION: FLUOROSCOPY NEPHROSTOGRAM CLINICAL INFORMATION: Obstructive uropathy COMPARISON: CT abdomen and pelvis 12/20/2023. TECHNIQUE/FINDINGS: Informed consent was obtained following a discussion of the risks and benefits of the procedure with the patient's proxy via telephone. The patient was placed prone on the fluoroscopy table. Preliminary ultrasound demonstrates right hydronephrosis. A site was marked on the right flank and the area was sterilely prepped and draped. Following the administration of 1% lidocaine for local anesthesia, a lower pole posterior calyx was accessed with a 21-gauge micropuncture needle. Position within the kidney was confirmed with nephrostogram which demonstrates moderate hydronephrosis and obstruction at the level of the distal ureter. The needle was exchanged for the AccuStick dilator over a 0.018 guidewire. An 8.5 Slovenian nephrostomy tube was placed. Pigtail was formed within the renal pelvis. Contrast injection demonstrates satisfactory position of the tube. The external portion of the tube was secured with 2-0 Prolene suture. The catheter was maintained to gravity bag drainage. A sterile dressing was applied. FLUOROSCOPY TIME: 3.4 minutes DOSE AREA PRODUCT: 20 uGy-m2 (microgray-meter squared) IR/IR nephrostomy IMPRESSION: Placement of 8.5 Slovenian right nephrostomy tube.
--- NOTE | ~2023-12-16 | CT_ITS ---
EXAMINATION: CT ABDOMEN AND PELVIS WITHOUT CONTRAST CLINICAL INFORMATION: Evaluate hydronephrosis. COMPARISON: Abdomen CT from 09/30/2023. Renal ultrasound from 12/19/2023. TECHNIQUE: Multidetector volumetric imaging was performed from the superior aspect of the liver through the pubic symphysis. Sagittal and coronal reformatted images were obtained on the technologist's workstation. This CT examination was performed using dose optimization techniques as appropriate, variously including the following: *Automated exposure control *Adjustment of mA and/or kV according to patient size (this includes techniques or standardized protocols for targeted exams where dose is matched to indication/reason for exam; i.e. extremities or head) *Use of iterative reconstruction technique DLP: 497 mGy-cm FINDINGS: LUNG BASES: Respiratory motion on images through the bases. Bronchial landry are chronically diffusely thickened. Mild atelectasis in dependent aspect of each lower lobe. Trace pleural effusions. HEPATOBILIARY: Again noted are simple cysts in the left lobe of liver. Gallbladder is underdistended and otherwise unremarkable. No dilated bile ducts. PANCREAS: No edema, pancreatic ductal dilatation or mass. SPLEEN: Normal. ADRENAL GLANDS: Normal. KIDNEYS AND URETERS: Moderate bilateral hydroureteronephrosis. No evidence of renal or ureteral calculi. The right kidney is 11.8 cm in length and left kidney 10.2 cm in length. Simple parapelvic cyst of the mid right kidney. No renal imaging follow-up is recommended for a simple cyst. BLADDER: The urinary bladder wall is chronically diffusely thickened. The bladder is decompressed by a Holland catheter. Interval increased posterior bladder wall thickening involving the previously identified bladder diverticulum along with intermixed calcifications. The soft tissue nodularity projecting from the posterior bladder wall at the site of previously identified diverticulum is suspicious for invasive bladder carcinoma. BOWEL AND PERITONEUM: Gastrostomy tube in place. No dilated bowel loops. Large amount of fecal material within the colon is suggestive of constipation. Multiple diverticula of the colon without evidence of diverticulitis. The appendix is normal. No abdominal free fluid or free air. ABDOMINAL WALL: Unremarkable. VASCULATURE: Status post repair of abdominal aortic aneurysm by placement of aortobiiliac stent graft. 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 LYMPH NODES: No retroperitoneal lymphadenopathy. Interval enlargement of a left internal iliac lymph node; it is 0.9 cm in short axis dimension (image 568, series 4). PELVIC VISCERA: The prostate gland is not clearly distinguished from the adjacent thick-walled bladder. MUSCULOSKELETAL: No aggressive osseous lesions. Osteoarthritis of the hips (right worse than left). CT/CT abdomen pelvis wo IV con IMPRESSION: * Urinary bladder wall is chronically thickened. Interval worsening wall thickening at the posterior bladder involving the previously identified diverticulum where there is intermixed calcification, highly suspicious for bladder carcinoma. The bladder has lobulated contour and there is likely infiltration of tumor into adjacent perivesical fat. The thick-walled bladder is not clearly distinguished from the prostate gland. * Interval development of a mildly enlarged left internal iliac lymph node (possible lymph node metastasis). * Moderate bilateral hydroureteronephrosis without urinary tract calculi. * Status post repair of abdominal aortic aneurysm by placement of aortobiiliac stent graft. * Colonic diverticulosis without diverticulitis.
--- NOTE | ~2023-12-16 | US_ITS ---
EXAMINATION: US RETROPERITONEAL LIMITED (RENAL ONLY) CLINICAL INFORMATION: Acute kidney injury with question of obstruction. COMPARISON: CT abdomen pelvis 09/30/2023 TECHNIQUE: Real-time imaging of the kidneys. FINDINGS: RIGHT KIDNEY: 10.3 x 6.0 x 4.9 cm (SAG x AP x TRV) for a volume of 159 mL. The kidney is normal in size, contour, and echogenicity. Renal cortical thickness is normal. No calculi. A benign complex septated 2.9 cm Bosniak class II renal cyst is noted which requires no additional imaging or follow up. A cyst and is identical area was seen on the recent CT scan. No solid renal masses are seen. There is moderate hydronephrosis present. LEFT KIDNEY: 9.0 x 3.9 x 3.2 cm (SAG x AP x TRV) for a volume of 59 mL. The kidney is small, considerably less volume than the right. Renal cortical thickness is decreased, easier to appreciate on the prior CT. No calculi or focal parenchymal lesions. No hydronephrosis. US/US renal BI IMPRESSION: There is a combination of factors at probably account for the patient's deterioration in renal function. There is new right-sided moderate hydronephrosis present. 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 There is significant volume loss in the left kidney which is almost one third the volume of the right kidney.
--- NOTE | 2023-12-16 08:58 | ECG_ITS ---
Test Reason : cp Blood Pressure : / mmHG Vent. Rate : 090 BPM Atrial Rate : 090 BPM P-R Int : 152 ms QRS Dur : 062 ms QT Int : 392 ms P-R-T Axes : 093 078 080 degrees QTc Int : 479 ms Poor data quality Normal sinus rhythm Nonspecific ST abnormality Abnormal ECG When compared with ECG of 13-OCT-2023 14:33, QRS duration has decreased ST more elevated in Inferior leads Inverted T waves have replaced nonspecific T wave abnormality in Anterior leads Referred By: Anselmo Aguilar Electronically Signed By:GEOVANNA VALE MD
--- NOTE | 2023-12-16 09:04 | ED_ITS ---
HPI - General Adult General Chief complaint: Recheck/Abnormal Lab/Rx Stated complaint: ABN LABS,FALLS FROM [facility] PER EMS Time Seen by Provider: 12/16/23 08:55 Source: EMS Mode of arrival: EMS History of Present Illness HPI narrative: This is 73 years old male with history of COPD O2 dependent, hypothyroidism, hypertension, schizophrenia, presented to the emergency department with a chief complaint of hypernatremia, patient is unable to give a good history he has history of schizophrenia Onset (ago): day(s) (1) Radiation: non-radiation Pain Consistency: constant Relieving factors: none Exacerbating factors: none Related Data Home Medications ?Medication ?Instructions ?Recorded ?Confirmed acetaminophen 325 mg capsule 650 mg feeding tube Q6H PRN Fever 09/20/22 10/13/23 Or Pain bisacodyl 10 mg rectal suppository 10 mg ME DAILY PRN Constipation 09/20/22 10/13/23 (Dulcolax (bisacodyl)) sodium phosphates 19 gram-7 118 ml ME DAILY PRN Constipation 09/20/22 10/13/23 gram/118 mL enema (Fleet Enema) lactulose 10 gram/15 mL oral 15 ml feeding tube BID 09/26/22 10/13/23 solution levothyroxine 112 mcg tablet 112 mcg feeding tube DAILY@0600 09/26/22 10/13/23 simvastatin 40 mg tablet 40 mg feeding tube BEDTIME 09/26/22 10/13/23 nicotine 7 mg/24 hr daily 1 patch transdermal Q24H PRN 12/05/22 10/13/23 transdermal patch Smoking Cessation polyvinyl alcohol 1.4 % eye drops 1 drp ophthalmic (eye) Q4H PRN Dry 12/05/22 10/13/23 (Artificial Tears (polyvinyl Eyes alcohol)) sennosides 8.6 mg tablet (senna) 17.2 mg feeding tube DAILY PRN 12/05/22 10/13/23 Constipation diazepam 2 mg tablet 3 mg feeding tube BID 10/03/23 10/13/23 albuterol sulfate 90 mcg/actuation 2 puff inhalation Q4H PRN 10/13/23 10/13/23 aerosol inhaler shortness of breath or wheezing bethanechol chloride 50 mg tablet 50 mg feeding tube BID 10/13/23 10/13/23 perphenazine 8 mg tablet 8 mg feeding tube BID 10/13/23 10/13/23 terazosin 5 mg capsule 5 mg feeding tube BEDTIME 10/13/23 10/13/23 Previous Rx's ?Medication ?Instructions ?Recorded amoxicillin 875 mg-potassium 1 tab PO BID #20 tabs 10/16/23 clavulanate 125 mg tablet Allergies Allergy/AdvReac Type Severity Reaction Status Date / Time cefpodoxime Allergy Intermediate Rash Verified 12/16/23 09:25 Review of Systems 2 Review of Systems: Yes all other systems are reviewed and are negative Eyes: Eyes: Reports no additional eye complaints Cardiovascular: Cardiovascular: Reports no additional cardiovascular complaints Integumentary/Breasts: Skin/Breast: Reports system reviewed and no additional complaints, except as docu [facility] Past Medical History Attestation statement: The following information was validated with the patient. Medical History Swallowing problem Pulmonary emphysema COVID-19 vaccine series completed History of COVID-19 Resides in senior care facility History of falling Personal history of traumatic brain injury Other specified intracranial injury without loss of consciousness, subsequent encounter Paralytic gait Benign prostatic hyperplasia without lower urinary tract symptoms Pain in left hip Primary generalized (osteo)arthritis Constipation, unspecified Impulse disorder, unspecified Trichotillomania Alcohol dependence, uncomplicated Hyperlipidemia, unspecified Hypothyroidism, unspecified Weakness Unspecified lack of coordination Muscle weakness (generalized) Age-related nuclear cataract, bilateral Unspecified abnormalities of gait and mobility Personal history of COVID-19 Repeated falls Lefort i fracture, initial encounter for closed fracture Unsteadiness on feet Other abnormalities of gait and mobility Dysphagia, oropharyngeal phase Paranoid schizophrenia Surgical History Status post AAA (abdominal aortic aneurysm) repair History of facial surgery Family History Family History Unknown No problems noted. 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 Patient Tobacco Use Status: Tobacco use Unknown Tobacco use type: Cigarette Cigarettes Per Day: 4 Years Smoked: 57 Advance Directives: Yes Advance Directives on File: Yes Advance Directives Date on File: 12/05/22 Do you have a plan to hurt others: No Plan service: No Current occupational status: disabled Physical Exam ED Vital Signs: Vital Signs - 24 hr 12/16/23 09:16 12/16/23 10:00 12/16/23 12:00 Temperature 97.1 F 98.1 F 98.0 F Pulse Rate 92 84 82 Respiratory Rate 16 18 16 Blood Pressure 111/76 107/66 129/82 Pulse Oximetry 97 96 95 Oxygen Delivery Method Room Air Room Air Room Air BMI result Body Mass Index 17.0 Patient looks well no toxic-appearing comfortable in the stretcher Const General: cooperative, comfortable and no acute distress Nutritional Appearance: well nourished HENDC Head: Yes normal to inspection General nose exam: Normal external nose present Mouth: Normal oral and palatal mucosa present Neck Neck: Yes normal visual inspection Chest Chest palpation & inspection: normal inspection of the chest Resp Effort & Inspection: normal respiratory effort Cardio Jugular venous distension: no JVD Rate: regular rate Rhythm: regular rhythm GI Inspection: Yes normal to inspection Palpation (GI): Soft to palpation Auscultation: normal bowel sounds Skin General skin exam: no rashes or lesions noted and elasticity normal Lesions: no lesions Rashes: no rashes Wounds: no wounds Medications Administered Generic Name Dose Route Start Last Admin Trade Name Freq PRN Reason Stop Dose Admin Dextrose 1,000 mls @ 200 mls/hr 12/16/23 09:00 12/16/23 10:40 D5w IVCONT 200 mls/hr .Q5H AMARILYS Administration Medical Decision Making Medical Decision Making [facility] Narrative: Patient was sent by the [place] [facility] because of hypernatremia will check the blood work I reviewed the test done at the [place] sodium was 171 will start the patient on DW anticipate admission Differential Diagnosis Differential Diagnoses: The differential diagnosis associated with the presentation includes Renal failure/hypernatremia Admission/Observation Consideration of admission/observation: Escalation of care including admission/observation considered Consult Healthcare Provider Management of the patient was discussed with: Medical Laboratory Technician ICU attending Lab Data MDM Lab Attestation statement: I reviewed the patient's lab results. 12/16/23 10:34 12/16/23 14:58 Labs: Lab Results 12/16/23 12/16/23 Range/Units 10:34 14:58 WBC 11.2 H (4.8-10.8) X10*3/uL RBC 4.79 D (4.60-5.80) X10*6/uL Hgb 12.9 L D (14.0-18.0) g/dl Hct 44.4 D (42.0-52.0) % MCV 92.7 (80.0-98.0) fL MCH 26.9 L (27.0-33.0) pg MCHC 29.1 L (31.0-36.0) g/dl RDW 15.7 (11.0-16.0) % Plt Count 234 (160-400) X10*3/uL MPV 10.3 (9.4-12.4) fL Immature Gran % (Auto) 0.4 (0.0-0.4) % Neut % (Auto) 83.7 H (45-73) % Lymph % (Auto) 9.7 L (20-40) % Twiggs % (Auto) 5.5 (2-11) % Eos % (Auto) 0.2 (0-4) % Baso % (Auto) 0.5 (0-2) % Lymph # (Auto) 1.1 L (1.2-4.9) X10*3/uL Twiggs # (Auto) 0.6 (0.1-1.2) X10*3/uL Eos # (Auto) 0.0 (0.0-0.4) X10*3/uL Baso # (Auto) 0.1 (0.0-0.2) X10*3/uL Abs Immat Gran (auto) 0.05 H (0.00-0.03) X10*3/uL Absolute Neuts (auto) 9.4 H (2.0-8.3) x10*3/uL Absolute Nucleated RBC 0.000 (0.0-0.012) X10*3/uL Nucleated RBC % (auto) 0.0 (0.0-0.2) /100WBC Sodium 173 H* D 167 H* (135-145) mmol/L Potassium 4.7 D 4.0 (3.3-5.1) mmol/L Chloride 124 H 125 H (96-108) mmol/L Carbon Dioxide 34 H 33 H (22-29) mmol/L Anion Gap 20 13 (12-20) BUN 97 H 92 H (9-16) mg/dL Creatinine 2.66 H 2.54 H (0.5-1.4) mg/dL Estim Creat Clear Calc 16.2 16.9 Estimated GFR 24 25 Random Glucose 71 118 H (60-115) mg/dL Osmolality 384 H (281-305) mosm/kg Calcium 9.8 9.2 D (8.4-10.2) mg/dL Total Bilirubin 0.3 (0.0-1.0) mg/dL AST 27 (5-37) U/L ALT 23 (0-40) U/L Alkaline Phosphatase 131 H (39-117) U/L Troponin I High Sens 3.2 (<3.5-35.0) ng/L Total Protein 7.8 (6.5-8.0) g/dL Albumin 3.6 (3.5-5.0) g/dL Independent Interpretation I performed an independent interpretation of an: Plain X-Ray Interpretation: I personally reviewed interpreted the chest x-ray as no acute disease Radiology Impression Discussion of test interpretation with radiology: I have reviewed the radiologist's reading. Radiologist Impression: Cough COMPARISON: 10/13/2023 TECHNIQUE: Frontal view of the chest was obtained. FINDINGS: No significant abnormality is noted involving the heart, lungs, mediastinum, bony thorax or soft tissues. XR/XR chest 1V IMPRESSION: Unremarkable examination. Independent Historian Clinical information obtained from an independent historian. History obtained from or confirmed by: EMS External Record Review External record reviewed: Other prison record Critical Care Time Critical Care Time Critical Care Time: Yes Total Critical Care Time: 60 Attestation: severe hyprenatremia,talking to EMS/reviewing record of prison,taking care of the pt Discharge Plan Discharge Clinical Impression: Acute hypernatremia Acute renal failure Qualifiers: Acute renal failure type: unspecified Qualified Code(s): N17.9 - Acute kidney failure, unspecified Patient Disposition: Admitted As Inpatient Print Language: Croatian
[2023-12-16 10:38] LABS: MANUAL DIFF FLAG NO
[2023-12-16] MEDS: Dextrose 5 % 1,000 ML 200 ML IVCONT ×2 (10:40→17:26)
[2023-12-16 10:44] LABS: Basophils Absolute Auto 0.1 X10*3/uL (0.0-0.2); Basophils Percent Auto 0.5 % (0-2); Eosinophils Percent Auto 0.2 % (0-4); Hematocrit 44.4 % (42.0-52.0); Hemoglobin 12.9 g/dl (14.0-18.0); Imm Gran Abs Auto 0.05 X10*3/uL (0.00-0.03); Imm Gran Pct Auto 0.4 % (0.0-0.4); Lymphocytes Absolute Auto 1.1 X10*3/uL (1.2-4.9); Lymphocytes Percent Auto 9.7 % (20-40); Mean Corpuscular HGB Conc 29.1 g/dl (31.0-36.0); Mean Corpuscular Hemoglobin 26.9 pg (27.0-33.0); Mean Corpuscular Volume 92.7 fL (80.0-98.0); Mean Platelet Volume 10.3 fL (9.4-12.4); Monocytes Absolute Auto 0.6 X10*3/uL (0.1-1.2); Monocytes Percent Auto 5.5 % (2-11); Neutrophils Absolute Auto 9.4 x10*3/uL (2.0-8.3); Neutrophils Percent Auto 83.7 % (45-73); Platelet Count 234 X10*3/uL (160-400); Red Blood Count 4.79 X10*6/uL (4.60-5.80); Red Cell Distribution Width 15.7 % (11.0-16.0)
[2023-12-16 10:48] LABS: White Blood Count 11.2 X10*3/uL (4.8-10.8)
[2023-12-16 11:00] LABS: Troponin-I High Sensitivity 3.2 ng/L (<3.5-35.0)
[2023-12-16 11:03] LABS: Osmolality, Serum 384 mosm/kg (281-305)
[2023-12-16 11:17] LABS: Alanine Aminotransferase 23 U/L (0-40); Albumin Level 3.6 g/dL (3.5-5.0); Alkaline Phosphatase 131 U/L (39-117); Anion Gap 20 (12-20); Aspartate Amino Transferase 27 U/L (5-37); Bilirubin Total 0.3 mg/dL (0.0-1.0); Blood Urea Nitrogen 97 mg/dL (9-16); Calcium 9.8 mg/dL (8.4-10.2); Carbon Dioxide 34 mmol/L (22-29); Chloride 124 mmol/L (96-108); Creatinine Clr Calc Pharmacy 16.2; Estimated Glomerular Filt Rate 24; Glucose Random 71 mg/dL (60-115); Potassium 4.7 mmol/L (3.3-5.1); Sodium 173 mmol/L (135-145); Total Protein 7.8 g/dL (6.5-8.0)
--- NOTE | 2023-12-16 15:29 | P.HPCC_ITS ---
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 Patient does not give much history given his psych issues, when asked if he is hungry he says no, he says yes to if he is thirsty, when asked if he is eating well he is shows his PEG tube. He denies any fever, denies any cough and denies any other complaints Review of Systems 2 Constitutional: Constitutional: Reports no additional constitutional complaints, Denies daytime sleepiness and Denies difficulty sleeping Eyes: Eyes: Denies blurry vision and Denies exophthalmos ENT: Reports Normal hearing present Cardiovascular: Cardiovascular: Denies chest pain and Denies Epigastric Pain Respiratory: Respiratory: Denies change in phlegm color, Denies chest congestion and Denies hemoptysis Gastrointestinal: Gastrointestinal: Denies abdominal pain and Denies melena Musculoskeletal: Musculoskeletal: Reports abnormal gait and Reports deformity Neurologic: Reports Normal hearing present, Reports abnormal gait and Denies confusion Psychiatric: Psychiatric: Denies confusion [facility] Past Medical History Medical History Swallowing problem Pulmonary emphysema COVID-19 vaccine series completed History of COVID-19 Resides in alf facility History of falling Personal history of traumatic brain injury Other specified intracranial injury without loss of consciousness, subsequent encounter Paralytic gait Benign prostatic hyperplasia without lower urinary tract symptoms Pain in left hip Primary generalized (osteo)arthritis Constipation, unspecified Impulse disorder, unspecified Trichotillomania Alcohol dependence, uncomplicated Hyperlipidemia, unspecified Hypothyroidism, unspecified Weakness Unspecified lack of coordination Muscle weakness (generalized) Age-related nuclear cataract, bilateral Unspecified abnormalities of gait and mobility Personal history of COVID-19 Repeated falls Lefort i fracture, initial encounter for closed fracture Unsteadiness on feet Other abnormalities of gait and mobility Dysphagia, oropharyngeal phase Paranoid schizophrenia Family History Family History Unknown No problems noted. Surgical History Surgical History Status post AAA (abdominal aortic aneurysm) repair History of facial surgery Social History Social History Household Members: None Housing: Jail Housing Other:: [facility] Are you a primary patient care associate to a significant other at home: No Do you presently have visiting nurse or other home services: No Unable to assess alcohol history related to: Unknown Comment: sitter Patient Tobacco Use Status: Tobacco use Unknown Tobacco use type: Cigarette Cigarettes Per Day: 4 Years Smoked: 57 Advance Directives: Yes Advance Directives on File: Yes Advance Directives Date on File: 12/05/22 Do you have a plan to hurt others: No Plan service: No Current occupational status: disabled Meds Allergies Allergy/AdvReac Type Severity Reaction Status Date / Time cefpodoxime Allergy Intermediate Rash Verified 12/16/23 09:25 Active Medications: Current Medications Enoxaparin Sodium (Enoxaparin Sodium 30 Mg/0.3 Ml Syringe) 30 mg SUBCUT Q24H AMARILYS Dextrose (D5w) 1,000 mls @ 200 mls/hr IVCONT .Q5H AMARILYS Last Admin: 12/16/23 10:40 Dose: 200 mls/hr Home Medications ?Medication ?Instructions ?Recorded ?Confirmed ?Last Taken ?Type acetaminophen 325 mg capsule 650 mg feeding tube Q6H PRN Fever 09/20/22 10/13/23 Unknown History Or Pain bisacodyl 10 mg rectal suppository 10 mg AL DAILY PRN Constipation 09/20/22 10/13/23 Unknown History (Dulcolax (bisacodyl)) sodium phosphates 19 gram-7 118 ml AL DAILY PRN Constipation 09/20/22 10/13/23 Unknown History gram/118 mL enema (Fleet Enema) lactulose 10 gram/15 mL oral 15 ml feeding tube BID 09/26/22 10/13/23 Unknown History solution levothyroxine 112 mcg tablet 112 mcg feeding tube DAILY@0600 09/26/22 10/13/23 Unknown History simvastatin 40 mg tablet 40 mg feeding tube BEDTIME 09/26/22 10/13/23 Unknown History nicotine 7 mg/24 hr daily 1 patch transdermal Q24H PRN 12/05/22 10/13/23 Unknown History transdermal patch Smoking Cessation polyvinyl alcohol 1.4 % eye drops 1 drp ophthalmic (eye) Q4H PRN Dry 12/05/22 10/13/23 Unknown History (Artificial Tears (polyvinyl Eyes alcohol)) sennosides 8.6 mg tablet (senna) 17.2 mg feeding tube DAILY PRN 12/05/22 10/13/23 Unknown History Constipation diazepam 2 mg tablet 3 mg feeding tube BID 10/03/23 10/13/23 Unknown History albuterol sulfate 90 mcg/actuation 2 puff inhalation Q4H PRN 10/13/23 10/13/23 Unknown History aerosol inhaler shortness of breath or wheezing bethanechol chloride 50 mg tablet 50 mg feeding tube BID 10/13/23 10/13/23 Unknown History perphenazine 8 mg tablet 8 mg feeding tube BID 10/13/23 10/13/23 Unknown History terazosin 5 mg capsule 5 mg feeding tube BEDTIME 10/13/23 10/13/23 Unknown History Physical Exam 2 Vital Signs: Vital Signs: Last Vital Signs Temp 98.0 F 12/16/23 12:00 Pulse 82 12/16/23 12:00 Resp 16 12/16/23 12:00 BP 129/82 12/16/23 12:00 Pulse Ox 95 12/16/23 12:00 O2 Del Method Room Air 12/16/23 12:00 BMI result Body Mass Index 17.0 Const: General: ill appearing; No confusion Nutritional Appearance: m alnourished and underweight Orientation/consciousness: oriented to person, oriented to place, oriented to time and No confusion Eyes: General: appearance normal, both eyes and all related structures V isual Zazueta: normal visual zazueta by confrontation Alignment and Position: a lignment normal and position normal Periorbital: periorbital findings normal Neck: Neck: Yes normal visual inspection and Yes no lymphadenopathy Chest: Chest palpation & inspection: normal inspection of the chest and normal palpation of entire chest wall Resp: Effort & Inspection: normal respiratory effort Auscultation: clear to auscultation bilaterally Percussion: percussion normal Cardio: Jugular venous distension: no JVD Rhythm: regular rhythm Heart sounds: S1 normal heart sound present and S2 normal heart sound present GI: Other: Peg tube site looks okay, no abdominal tenderness, no organomegaly Skin: General skin exam: no rashes or lesions noted and elasticity normal Neuro: General: oriented to person, oriented to place, oriented to time and No confusion Cranial nerves: Yes Normal hearing present Psych: Appearance: disheveled Speech and movement: No Normal speech and movement present or Clear speech present Affect: Labile affect present A ttitude: not cooperative and Avoids eye contact (attititude/behavior) Thought process: abnormal Results Labs 12/16/23 10:34 12/16/23 10:34 Labs: Laboratory Results - last 24 hr 12/16/23 10:34 MCV 92.7 MCH 26.9 L MCHC 29.1 L RDW 15.7 Plt Count 234 MPV 10.3 Immature Gran % (Auto) 0.4 Neut % (Auto) 83.7 H Lymph % (Auto) 9.7 L [place] % (Auto) 5.5 Eos % (Auto) 0.2 Baso % (Auto) 0.5 Lymph # (Auto) 1.1 L [place] # (Auto) 0.6 Eos # (Auto) 0.0 Baso # (Auto) 0.1 Abs Immat Gran (auto) 0.05 H Absolute Neuts (auto) 9.4 H Absolute Nucleated RBC 0.000 Nucleated RBC % (auto) 0.0 Anion Gap 20 Estim Creat Clear Calc 16.2 Estimated GFR 24 Random Glucose 71 Osmolality 384 H Calcium 9.8 Total Bilirubin 0.3 AST 27 ALT 23 Alkaline Phosphatase 131 H Troponin I High Sens 3.2 Total Protein 7.8 Albumin 3.6 Imaging Radiologist's Impressions: Impressions Chest X-Ray 12/16/23 09:27 IMPRESSION: Unremarkable examination. Assessment and Plan (1) Acute renal failure: Qualifiers: Acute renal failure type: unspecified Qualified Code(s): N17.9 - Acute kidney failure, unspecified Status: Acute (2) Acute hypernatremia: Status: Acute (3) COPD (chronic obstructive pulmonary disease): Status: Acute (4) Pulmonary nodules: Status: Acute (5) AAA (abdominal aortic aneurysm) without rupture: Qualifiers: Abdominal aorta location: infrarenal aorta Qualified Code(s): I71.43 - Infrarenal abdominal aortic aneurysm, without rupture Status: Acute Plan Acute hypernatremia: Possibly due to volume depletion, patient is malnourished on tube feeds We will start the patient on D5 water at 200 cc/hour, we will get BMP q.4 and adjusted as needed Target sodium down to 163 until tomorrow morning; if the sodium drops more faster we will stop the D5 water and monitor labs Acute kidney injury: Possibly secondary to volume depletion Should improve with volume resuscitation Closely monitor I's and O's COPD: We will supplement oxygen if the saturations dropped below 88 Hypertension: We will closely monitor if needed we will restart the home antihypertensives Paranoid schizophrenia: We will restart home medications Total time managing care of this patient today: 35 minutes.
[2023-12-16 15:38] LABS: Anion Gap 13 (12-20); Blood Urea Nitrogen 92 mg/dL (9-16); Calcium 9.2 mg/dL (8.4-10.2); Carbon Dioxide 33 mmol/L (22-29); Chloride 125 mmol/L (96-108); Creatinine Clr Calc Pharmacy 16.9; Estimated Glomerular Filt Rate 25; Glucose Random 118 mg/dL (60-115); Sodium 167 mmol/L (135-145)
[2023-12-16 16:56] LABS: Anion Gap 15 (12-20); Blood Urea Nitrogen 91 mg/dL (9-16); Calcium 9.3 mg/dL (8.4-10.2); Carbon Dioxide 31 mmol/L (22-29); Chloride 125 mmol/L (96-108); Creatinine Clr Calc Pharmacy 16.9; Estimated Glomerular Filt Rate 25; Glucose Random 75 mg/dL (60-115); Potassium 4.1 mmol/L (3.3-5.1); Sodium 167 mmol/L (135-145)
[2023-12-16] MEDS: Enoxaparin Sodium 30 MG/0.3 ML SYRINGE SUBCUT (17:33)
--- NOTE | 2023-12-16 17:39 | PHA.MEDREC ---
Pharmacy Consult ? Medication Reconciliation Pharmacy has completed the medication reconciliation. Used med list from [facility] to complete med rec.
[2023-12-16 20:42] LABS: Anion Gap 20 (12-20); Blood Urea Nitrogen 92 mg/dL (9-16); Calcium 9.1 mg/dL (8.4-10.2); Carbon Dioxide 26 mmol/L (22-29); Chloride 122 mmol/L (96-108); Creatinine Clr Calc Pharmacy 19.7; Estimated Glomerular Filt Rate 26; Glucose Random 141 mg/dL (60-115); Potassium 4.2 mmol/L (3.3-5.1); Sodium 164 mmol/L (135-145)
[2023-12-16] MEDS: 0.9 % Sodium Chloride Flush 3 ML SYRINGE IVFLUSH (23:40)
[2023-12-17] VITALS (15 sets, daily range): BP systolic 90–115; BP diastolic 57–69; PULSE 80–97; RESP 14–27; TEMP 36.1–36.4; O2SAT 91–98; BMI 19.0; BMI 19.8
[2023-12-17 01:16] LABS: Anion Gap 19 (12-20); Blood Urea Nitrogen 91 mg/dL (9-16); Calcium 9.3 mg/dL (8.4-10.2); Carbon Dioxide 27 mmol/L (22-29); Chloride 123 mmol/L (96-108); Creatinine Clr Calc Pharmacy 18.7; Estimated Glomerular Filt Rate 25; Glucose Random 78 mg/dL (60-115); Potassium 4.1 mmol/L (3.3-5.1); Sodium 165 mmol/L (135-145)
[2023-12-17 06:30] LABS: Anion Gap 20 (12-20); Blood Urea Nitrogen 98 mg/dL (9-16); Calcium 9.4 mg/dL (8.4-10.2); Carbon Dioxide 27 mmol/L (22-29); Chloride 124 mmol/L (96-108); Creatinine Clr Calc Pharmacy 17.4; Estimated Glomerular Filt Rate 23; Glucose Random 78 mg/dL (60-115); Potassium 4.5 mmol/L (3.3-5.1); Sodium 166 mmol/L (135-145)
[2023-12-17 06:33] LABS: Mean Corpuscular HGB Conc 29.3 g/dl (31.0-36.0); Mean Corpuscular Hemoglobin 26.6 pg (27.0-33.0); Mean Corpuscular Volume 90.9 fL (80.0-98.0); Mean Platelet Volume 10.5 fL (9.4-12.4); Platelet Count 201 X10*3/uL (160-400); Red Blood Count 4.51 X10*6/uL (4.60-5.80); Red Cell Distribution Width 15.7 % (11.0-16.0); White Blood Count 8.1 X10*3/uL (4.8-10.8)
--- NOTE | 2023-12-17 08:31 | MHC.CM.PN ---
IMM DELIVERED TO [facility] ([facility]) VIA TELEPHONE, REQUESTS WHITE COPY BE MAILED. 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 [facility] ON FILE. PCP DR. RAMOS. DP: PT WILL RETURN TO [facility] ON RECOVERY VIA BLS. CM WILL CONTINUE TO FOLLOW FOR ANY CHANGE TO DC PLAN/NEEDS.
[2023-12-17] MEDS: Dextrose 5 % 1,000 ML 150 ML IVCONT ×3 (08:41→22:10)
--- NOTE | 2023-12-17 10:20 | MHC.CLN ---
PT IS MODERATELY MALNOURISHED PT WITH 15% NONSIGNIFICANT WT LOSS X 1 YEAR WITH MILDLY DEPLETED SUBCUTANEOUS FAT AND MUSCLE MASS PT WITH PEG IN PLACE R/T DYSPHAGIA PT CURRENTLY RECEIVING D5W IVF R/T HYPERNATREMIA RECOMMEND TF JEVITY 1.0 AT MAX GOAL RATE 60ML/HR TO PROVIDE 1526KCALS (29KCALS/KG), 64G PROTEIN (1.2G/KG), 1202ML FREE WATER FROM FORMULA WHEN D5W IS COMPLETED; CAN START 240ML FREE WATER FLUSHES VIA PEG TUBE (1922ML TOTAL WATER FROM FORMULA AND FLUSHES ) START TF AT 20ML/HR AND INCREASE BY 10ML Q 4 HRS UNTIL MAX GOAL IS ACHIEVED MONITOR TOLERANCE, RESIDUALS AND LYTES SEE ALSO FULL CLINICAL NUTRITION ASSESSMENT
--- NOTE | 2023-12-17 10:21 | PM.CCPN ---
Subjective Subjective Date of Service: 12/17/23 Interval History: No new complaints, sodium improved down to 165 this morning Communicates with writing on the sheet of paper, request for parents and sheets Critical Care Time (minutes): 25 Physical Exam Vital Signs: Vital Signs: Last Vital Signs Temp 97.5 F 12/17/23 08:00 Pulse 88 12/17/23 10:00 Resp 18 12/17/23 10:00 BP 95/68 12/17/23 10:00 Pulse Ox 93 12/17/23 10:00 O2 Del Method Room Air 12/17/23 10:00 BMI result Body Mass Index 19.8 Const: General: ill appearing and tired appearing HEENT: Head: Yes normal to inspection, Yes No palpable skull fracture present, Yes normocephalic and Yes atraumatic Eyes: General: appearance normal, both eyes and all related structures Visual Steen: normal visual steen by confrontation Alignment and Position: alignment normal and position normal Neck: Neck: Yes normal visual inspection and Yes no lymphadenopathy Chest: Chest palpation & inspection: normal inspection of the chest and normal palpation of entire chest wall Resp: Effort & Inspection: normal respiratory effort Auscultation: clear to auscultation bilaterally Cardio: Jugular venous distension: no JVD Rate: regular rate Rhythm: regular rhythm Heart sounds: S1 normal heart sound present and S2 normal heart sound present GI: Other: Soft, nontender, no organomegaly, PEG tube looks okay : General: Yes Bimanual renal exam normal bilaterally, Yes bladder normal to inspection and Yes bladder normal to palpation Skin: General skin exam: no rashes or lesions noted and elasticity normal Neuro: Other: Alert, oriented to place, no focal deficit Objective Data Labs 12/17/23 06:00 12/17/23 06:00 Labs: Laboratory Results - last 24 hr 12/16/23 12/16/23 12/16/23 10:34 14:58 16:23 WBC 11.2 H RBC 4.79 D Hgb 12.9 L D Hct 44.4 D MCV 92.7 MCH 26.9 L MCHC 29.1 L RDW 15.7 Plt Count 234 MPV 10.3 Immature Gran % (Auto) 0.4 Neut % (Auto) 83.7 H Lymph % (Auto) 9.7 L [place] % (Auto) 5.5 Eos % (Auto) 0.2 Baso % (Auto) 0.5 Lymph # (Auto) 1.1 L [place] # (Auto) 0.6 Eos # (Auto) 0.0 Baso # (Auto) 0.1 Abs Immat Gran (auto) 0.05 H Absolute Neuts (auto) 9.4 H Absolute Nucleated RBC 0.000 Nucleated RBC % (auto) 0.0 Sodium 173 H* D 167 H* 167 H* Potassium 4.7 D 4.0 4.1 Chloride 124 H 125 H 125 H Carbon Dioxide 34 H 33 H 31 H Anion Gap 20 13 15 BUN 97 H 92 H 91 H Creatinine 2.66 H 2.54 H 2.54 H Estim Creat Clear Calc 16.2 16.9 16.9 Estimated GFR 24 25 25 Random Glucose 71 118 H 75 Osmolality 384 H Calcium 9.8 9.2 D 9.3 Total Bilirubin 0.3 AST 27 ALT 23 Alkaline Phosphatase 131 H Troponin I High Sens 3.2 Total Protein 7.8 Albumin 3.6 12/16/23 12/17/23 12/17/23 19:55 00:50 06:00 WBC 8.1 RBC 4.51 L Hgb 12.0 L Hct 41.0 L MCV 90.9 MCH 26.6 L MCHC 29.3 L RDW 15.7 Plt Count 201 MPV 10.5 Immature Gran % (Auto) Neut % (Auto) Lymph % (Auto) [place] % (Auto) Eos % (Auto) Baso % (Auto) Lymph # (Auto) [place] # (Auto) Eos # (Auto) Baso # (Auto) Abs Immat Gran (auto) Absolute Neuts (auto) Absolute Nucleated RBC 0.000 Nucleated RBC % (auto) 0.0 Sodium 164 H* 165 H* 166 H* Potassium 4.2 4.1 4.5 Chloride 122 H 123 H 124 H Carbon Dioxide 26 27 27 Anion Gap 20 19 20 BUN 92 H 91 H 98 H Creatinine 2.44 H 2.57 H 2.77 H Estim Creat Clear Calc 19.7 18.7 17.4 Estimated GFR 26 25 23 Random Glucose 141 H 78 78 Osmolality Calcium 9.1 9.3 9.4 Total Bilirubin AST ALT Alkaline Phosphatase Troponin I High Sens Total Protein Albumin Progress Note: A&P Assessment and plan (1) Acute renal failure: Status: Acute (2) Acute hypernatremia: Status: Acute (3) Influenza: Status: Acute (4) Status post percutaneous abdominal aortic aneurysm (AAA) repair: Status: Acute (5) Encounter for screening colonoscopy: Status: Acute Plan Acute hypernatremia: Possibly due to volume depletion, patient is malnourished on tube feeds Sodium 173 upon presentation yesterday morning, was placed on D5 water at 200 cc/hour decreased to 163 last night and the D5 was stopped. This morning sodium went up to 165 and D5 water with restarted at 150 cc/hour We will adjust the tube feeds with more water content unless sodium Acute kidney injury: Possibly secondary to volume depletion leading to ATN Creatinine increased this morning to 2.77 Closely monitor I's and O's COPD: We will supplement oxygen if the saturations dropped below 88 Hypertension: Blood pressure is okay Paranoid schizophrenia: Home medications restarted Quality Stroke Does the patient have a stroke diagnosis?: No VTE Prior VTE?: No VTE Risk Level:: Medical - low VTE Device Contraindication: N/A - Device Ordered VTE Drug Contraindication: N/A - Med Ordered
--- NOTE | 2023-12-17 12:24 | P.CDIM_ITS ---
PROVIDER RESPONSE TEXT: To clarify, the appropriate diagnosis supported by the clinical indicators: Severe QUERY TEXT: PHYSICIAN'S DOCUMENTATION REQUEST Date of Query: 12/17/2023 11:25 AM EDT Patient Name: Mariusz Kirkland Admit Date: 12/16/2023 Dear Holden Hooks MD, A review of the medical record indicates additional documentation may be needed. Please review below and update the documentation accordingly. Documentation includes the diagnosis of malnutrition. Clinical nutrition notes dated 12/15 - Patient is moderately malnourished. Nonsignificant wt loss x 1 years with mildly depleted subcutaneous fat and muscle mass. Peg in place BMI 19 If possible, please provide additional specificity regarding the severity of the malnutrition using t he above information: Mild Moderate Severe Other (explain) Clinically unable to determine (explain) Thank you, Eunice Anna, CCS, CDIS Use of terms such as suspected, likely, concern for, or probable (associated with a specific diagnosi s that is being evaluated, monitored, or treated as if it exists) are acceptable and can be coded in the inpatient se tting, when documented at the time of discharge. Please use your independent medical judgment in providing your response. THIS QUERY IS PART OF THE PERMANENT MEDICAL RECORD
[2023-12-17 12:42] LABS: Anion Gap 17 (12-20); Blood Urea Nitrogen 98 mg/dL (9-16); Calcium 9.1 mg/dL (8.4-10.2); Carbon Dioxide 28 mmol/L (22-29); Chloride 121 mmol/L (96-108); Creatinine Clr Calc Pharmacy 17.1; Estimated Glomerular Filt Rate 21; Glucose Random 109 mg/dL (60-115); Potassium 4.1 mmol/L (3.3-5.1); Sodium 162 mmol/L (135-145)
--- NOTE | 2023-12-17 15:12 | PC.NURSE ---
Tube feed diet, jevity started @ 1500, adjust rate/ check residual @1900
[2023-12-17 16:29] LABS: Anion Gap 18 (12-20); Blood Urea Nitrogen 97 mg/dL (9-16); Calcium 9.2 mg/dL (8.4-10.2); Carbon Dioxide 26 mmol/L (22-29); Chloride 119 mmol/L (96-108); Creatinine Clr Calc Pharmacy 17.7; Estimated Glomerular Filt Rate 22; Glucose Random 117 mg/dL (60-115); Sodium 159 mmol/L (135-145)
[2023-12-17] MEDS: Enoxaparin Sodium 30 MG/0.3 ML SYRINGE SUBCUT (17:10)
[2023-12-17] MEDS: 0.9 % Sodium Chloride Flush 3 ML SYRINGE IVFLUSH (17:11)
--- NOTE | 2023-12-17 20:04 | PC.NURSE ---
cked residu, negive. adjusted feed rate to 30nexr adstment 0000 12/17
[2023-12-17 20:11] LABS: Anion Gap 16 (12-20); Blood Urea Nitrogen 97 mg/dL (9-16); Calcium 9.4 mg/dL (8.4-10.2); Carbon Dioxide 30 mmol/L (22-29); Chloride 116 mmol/L (96-108); Creatinine Clr Calc Pharmacy 17.1; Estimated Glomerular Filt Rate 21; Glucose Random 89 mg/dL (60-115); Potassium 4.3 mmol/L (3.3-5.1); Sodium 158 mmol/L (135-145)
[2023-12-17] MEDS: Lactulose 20 GM/30 ML SOLUTION 10 GM G-TUBE (22:08)
[2023-12-17] MEDS: diazePAM 2 MG TABLET 3 MG G-TUBE (22:08)
[2023-12-17] MEDS: Doxazosin Mesylate 2 MG TABLET 4 MG G-TUBE (22:09)
[2023-12-17] MEDS: Perphenazine 8 MG TABLET G-TUBE (22:12)
[2023-12-18] VITALS (8 sets, daily range): BP systolic 93–119; BP diastolic 61–82; PULSE 71–139; RESP 16–20; TEMP 36.1–36.6; O2SAT 93–96; BMI 19.0
[2023-12-18] MEDS: Dextrose 5 % 1,000 ML 150 ML IVCONT (00:04)
[2023-12-18 00:32] LABS: Anion Gap 18 (12-20); Blood Urea Nitrogen 97 mg/dL (9-16); Calcium 9.1 mg/dL (8.4-10.2); Carbon Dioxide 25 mmol/L (22-29); Chloride 116 mmol/L (96-108); Estimated Glomerular Filt Rate 20; Glucose Random 129 mg/dL (60-115); Potassium 3.8 mmol/L (3.3-5.1); Sodium 155 mmol/L (135-145)
--- NOTE | 2023-12-18 04:27 | PC.NURSE ---
PEG had no residuals at 0000, tube feed increased to 40mL/hr. PEG had no residuals at 0400, tube feed increased to 50mL/hr.
--- NOTE | 2023-12-18 05:20 | PC.NURSE ---
Pt sodium [address] at [address]Gomz Rosado, D5 rated decreased to 100mL/hr
[2023-12-18 05:48] LABS: Anion Gap 17 (12-20); Blood Urea Nitrogen 94 mg/dL (9-16); Calcium 8.8 mg/dL (8.4-10.2); Carbon Dioxide 26 mmol/L (22-29); Chloride 113 mmol/L (96-108); Creatinine Clr Calc Pharmacy 16.7; Estimated Glomerular Filt Rate 21; Glucose Random 126 mg/dL (60-115); Potassium 3.4 mmol/L (3.3-5.1); Sodium 153 mmol/L (135-145)
[2023-12-18] MEDS: Levothyroxine Sodium 112 MCG TABLET G-TUBE (06:12)
[2023-12-18] MEDS: diazePAM 2 MG TABLET 3 MG G-TUBE ×2 (09:20→22:45)
[2023-12-18] MEDS: Atorvastatin Calcium 20 MG TABLET G-TUBE (09:21)
[2023-12-18] MEDS: 0.9 % Sodium Chloride Flush 3 ML SYRINGE IVFLUSH (09:21)
[2023-12-18] MEDS: Lactulose 20 GM/30 ML SOLUTION 10 GM G-TUBE ×2 (09:21→22:42)
[2023-12-18] MEDS: Perphenazine 8 MG TABLET G-TUBE ×2 (09:21→22:47)
--- NOTE | 2023-12-18 11:16 | MHC.CM.PN ---
EMR REVIEWED, PER HOSPITALIST PT REMAINS HYPERNATREMIC, NO PLAN FOR DC TODAY, PT WILL RETURN TO [facility] ONCE MEDICALLY CLEARED, CM WILL CONT TO FOLLOW DC NEEDS.
--- NOTE | 2023-12-18 12:02 | MHC.CLN ---
F/U PT IS MODERATELY MALNOURISHED SEE FULL CLINICAL NUTRITION ASSESSMENT DATED 12/17/23 PT RECEIVING TF JEVITY 1.0 AT MAX GOAL RATE 60ML/HR PROVIDES 1526KCALS (29KCALS/KG), 64G PROTEIN (1.2G/KG), 1202ML FREE WATER FROM FORMULA START 240ML FREE WATER FLUSHES VIA PEG TUBE (1922ML TOTAL WATER FROM FORMULA AND FLUSHES ) MONITOR TOLERANCE, RESIDUALS AND LYTES
[2023-12-18 13:07] LABS: Anion Gap 15 (12-20); Blood Urea Nitrogen 94 mg/dL (9-16); Carbon Dioxide 27 mmol/L (22-29); Chloride 112 mmol/L (96-108); Creatinine Clr Calc Pharmacy 16.5; Estimated Glomerular Filt Rate 21; Glucose Random 98 mg/dL (60-115); Sodium 150 mmol/L (135-145)
[2023-12-18] MEDS: Dextrose 5 % 1,000 ML 100 ML IVCONT (15:10)
[2023-12-18] MEDS: Enoxaparin Sodium 30 MG/0.3 ML SYRINGE SUBCUT (16:45)
[2023-12-18 16:46] LABS: Anion Gap 13 (12-20); Blood Urea Nitrogen 93 mg/dL (9-16); Carbon Dioxide 28 mmol/L (22-29); Chloride 113 mmol/L (96-108); Creatinine Clr Calc Pharmacy 16.5; Estimated Glomerular Filt Rate 21; Glucose Random 127 mg/dL (60-115); Potassium 3.9 mmol/L (3.3-5.1); Sodium 150 mmol/L (135-145)
--- NOTE | 2023-12-18 17:07 | HO.PM.IMPN ---
Subjective Subjective Date of Service: 12/18/23 Interval History: Seen and evaluated this morning still encephalopathic Sodium trending down slowly to 154 Review of Systems Review of Systems: Yes Unobtainable due to mental status Physical Exam Vital Signs: Vital Signs: Last Vital Signs Temp 97.1 F 12/18/23 15:01 Pulse 71 12/18/23 15:01 Resp 16 12/18/23 15:01 BP 107/69 12/18/23 15:01 Pulse Ox 93 12/18/23 15:01 O2 Del Method Room Air 12/18/23 15:01 BMI result Body Mass Index 19.0 Const: Other: Constitutional : interactive, not in distress Cardiovascular : no JVP, no lower extremity edema Respiratory : bilateral chest movement, not in resp distress Gastrointestinal: soft, lax, Non tender Skin : Warm, Dry Neurological : altered mentation, responds to stimulai , speech non-coherent Objective Data Active Medications Acetaminophen (Acetaminophen 325 Mg Tablet) 650 mg G-TUBE Q6H PRN PRN Reason: Fever Or Pain Albuterol Sulfate (Albuterol Sulfate 90 Mcg 8 Gm Inhaler) 2 puff INHALE Q4H PRN PRN Reason: shortness of breath or wheezing Atorvastatin Calcium (Atorvastatin Calcium 20 Mg Tablet) 20 mg G-TUBE DAILY [facility] Last Admin: 12/18/23 09:21 Dose: 20 mg Documented By: IZABEL Bisacodyl (Bisacodyl 10 Mg Supp.Rect) 10 mg [place] DAILY PRN PRN Reason: Constipation Diazepam (Diazepam 2 Mg Tablet) 3 mg G-TUBE BID [facility] Last Admin: 12/18/23 09:20 Dose: 3 mg Documented By: IZABEL Doxazosin Mesylate (Doxazosin Mesylate 2 Mg Tablet) 4 mg G-TUBE BEDTIME [facility] Last Admin: 12/17/23 22:09 Dose: 4 mg Documented By: BRIGITTE Enoxaparin Sodium (Enoxaparin Sodium 30 Mg/0.3 Ml Syringe) 30 mg SUBCUT Q24H [facility] Last Admin: 12/18/23 16:45 Dose: 30 mg Documented By: MIYA Dextrose (D5w) 1,000 mls @ 80 mls/hr IVCONT .[id number] [facility] Last Admin: 12/18/23 15:10 Dose: 100 mls/hr Documented By: IZABEL Lactulose (Lactulose 20 Gm/30 Ml Solution) 10 gm G-TUBE BID [facility] Last Admin: 12/18/23 09:21 Dose: 10 gm Documented By: IZABEL Levothyroxine Sodium (Levothyroxine Sodium 112 Mcg Tablet) 112 mcg G-TUBE DAILY@0600 [facility] Last Admin: 12/18/23 06:12 Dose: 112 mcg Documented By: ANDALEXANDRIA Nicotine (Nicotine 7 Mg Patch.Td24) 7 mg TRANSDERMA Q24H PRN PRN Reason: Smoking Cessation Perphenazine (Perphenazine 8 Mg Tablet) 8 mg G-TUBE BID [facility] Last Admin: 12/18/23 09:21 Dose: 8 mg Documented By: IZABEL Senna (Sennosides 8.6 Mg Tablet) 17.2 mg G-TUBE DAILY PRN PRN Reason: Constipation Sodium Chloride (0.9 % Sodium Chloride Flush 3 Ml Syringe) 3 ml IVFLUSH QSHIFT [facility] Last Admin: 12/18/23 15:39 Dose: Not Given Documented By: MIYA Non-Admin Reason: IV Running Labs 12/17/23 06:00 12/18/23 16:24 Labs: Laboratory Results - last 24 hr 12/17/23 12/18/23 12/18/23 19:45 00:02 04:00 Anion Gap 16 18 17 Estim Creat Clear Calc 17.1 16.0 16.7 Estimated GFR 21 20 21 Random Glucose 89 129 H 126 H Calcium 9.4 9.1 8.8 12/18/23 12/18/23 12:18 16:24 Anion Gap 15 13 Estim Creat Clear Calc 16.5 16.5 Estimated GFR 21 21 Random Glucose 98 127 H Calcium 9.0 9.0 Assessment and Plan (1) Acute renal failure: Status: Acute (2) Acute hypernatremia: Status: Acute (3) Acute metabolic encephalopathy: Status: Acute Plan A 73 years old male with PMH of TBI, AAA s/p elective repair, COPD on prn home O2, hypothyroidism, HTN, HLD, BPH, and paranoid schizophrenia who presents with altered mentation and sodim level of 171. Acute hypernatremia complicated by acute metabolic encephalopathy Possibly due to volume depletion, patient is malnourished on tube feeds Sodium to 154 this morning on 100cc D5W Hold fluids, repeat BMP and restart with goal to drop to 146 within 24 hours adjust the tube feeds with more water content Acute kidney injury secondary to volume depletion leading to ATN Creatinine stable at 2.9 Closely monitor I's and O's follow BMP COPD not in exacerbation Hypertension monitor Paranoid schizophrenia Home medications restarted DVT PPx Lovenox The patient needs overnight hospital stay for Hypernatremia management Quality Stroke Does the patient have a stroke diagnosis?: No VTE Prior VTE?: No VTE Risk Level:: Medical - low VTE Device Contraindication: N/A - Device Ordered VTE Drug Contraindication: N/A - Med Ordered
[2023-12-18 20:51] LABS: Anion Gap 14 (12-20); Blood Urea Nitrogen 91 mg/dL (9-16); Carbon Dioxide 26 mmol/L (22-29); Chloride 113 mmol/L (96-108); Creatinine Clr Calc Pharmacy 16.5; Estimated Glomerular Filt Rate 21; Glucose Random 107 mg/dL (60-115); Potassium 4.2 mmol/L (3.3-5.1); Sodium 149 mmol/L (135-145)
[2023-12-18] MEDS: Doxazosin Mesylate 2 MG TABLET 4 MG G-TUBE (22:43)
[2023-12-19 00:57] LABS: Anion Gap 16 (12-20); Blood Urea Nitrogen 91 mg/dL (9-16); Calcium 8.9 mg/dL (8.4-10.2); Carbon Dioxide 26 mmol/L (22-29); Chloride 111 mmol/L (96-108); Creatinine Clr Calc Pharmacy 16.9; Estimated Glomerular Filt Rate 22; Glucose Random 141 mg/dL (60-115); Potassium 3.8 mmol/L (3.3-5.1); Sodium 149 mmol/L (135-145)
[2023-12-19 03:31] VITALS: BP 114/69; PULSE 88; RESP 20; TEMP 36.4; O2SAT 98
[2023-12-19] MEDS: Dextrose 5 % 1,000 ML 75 ML IVCONT ×2 (05:42→16:42)
[2023-12-19] MEDS: Levothyroxine Sodium 112 MCG TABLET G-TUBE (05:43)
[2023-12-19 06:00] VITALS: BMI 18.6
[2023-12-19 07:29] LABS: Anion Gap 14 (12-20); Blood Urea Nitrogen 87 mg/dL (9-16); Calcium 8.7 mg/dL (8.4-10.2); Carbon Dioxide 25 mmol/L (22-29); Chloride 111 mmol/L (96-108); Creatinine Clr Calc Pharmacy 17.3; Estimated Glomerular Filt Rate 23; Glucose Random 117 mg/dL (60-115); Potassium 3.7 mmol/L (3.3-5.1); Sodium 146 mmol/L (135-145)
[2023-12-19 08:00] VITALS: BP 91/63; PULSE 90; RESP 16; TEMP 36.1; O2SAT 96
[2023-12-19] MEDS: Lactulose 20 GM/30 ML SOLUTION 10 GM G-TUBE ×2 (09:11→21:47)
[2023-12-19] MEDS: 0.9 % Sodium Chloride Flush 3 ML SYRINGE IVFLUSH ×2 (09:11→15:59)
[2023-12-19] MEDS: Perphenazine 8 MG TABLET G-TUBE ×2 (09:12→21:46)
[2023-12-19] MEDS: Atorvastatin Calcium 20 MG TABLET G-TUBE (09:12)
[2023-12-19] MEDS: diazePAM 2 MG TABLET 3 MG G-TUBE ×2 (09:12→21:46)
--- NOTE | 2023-12-19 09:30 | P.CONNP_ITS ---
History of Present Illness Reason for Consult Consult date: 12/19/23 Reason for consult: Hypernatremia Chief Complaint Chief complaint: Hypernatremia History of Present Illness Narrative: 73 years old male with PMH of TBI, AAA s/p elective repair, COPD on prn home O2, hypothyroidism, HTN, HLD, BPH, and paranoid schizophrenia who presents with altered mentation and sodium level of 171. h/o similar episode in Aug 2023 Review of Systems Review of Systems Yes Unobtainable due to mental status PMFSH Past Medical History Medical History Swallowing problem Pulmonary emphysema COVID-19 vaccine series completed History of COVID-19 Resides in care home facility History of falling Personal history of traumatic brain injury Other specified intracranial injury without loss of consciousness, subsequent encounter Paralytic gait Benign prostatic hyperplasia without lower urinary tract symptoms Pain in left hip Primary generalized (osteo)arthritis Constipation, unspecified Impulse disorder, unspecified Trichotillomania Alcohol dependence, uncomplicated Hyperlipidemia, unspecified Hypothyroidism, unspecified Weakness Unspecified lack of coordination Muscle weakness (generalized) Age-related nuclear cataract, bilateral Unspecified abnormalities of gait and mobility Personal history of COVID-19 Repeated falls [place] i fracture, initial encounter for closed fracture Unsteadiness on feet Other abnormalities of gait and mobility Dysphagia, oropharyngeal phase Paranoid schizophrenia Family History Family History Unknown No problems noted. 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 If so, by whom?: No Do you feel safe in your current relationship?: Yes Is there a partner from a previous relationship who is making you feel unsafe now?: No Are you made to feel afraid or neglected: No Advance Directives: Yes Advance Directives on File: Yes Advance Directives Date on File: 12/05/22 Do you have a plan to hurt others: No Plan Recently lost weight without trying: Unsure Nutrition Risks: Difficulty swallowing and Receiving home tube feeding or CPN service: No Current occupational status: disabled Meds Allergies Allergy/AdvReac Type Severity Reaction Status Date / Time cefpodoxime Allergy Intermediate Rash Verified 12/16/23 09:25 Active Medications: Current Medications Acetaminophen (Acetaminophen 325 Mg Tablet) 650 mg G-TUBE Q6H PRN PRN Reason: Fever Or Pain Albuterol Sulfate (Albuterol Sulfate 90 Mcg 8 Gm Inhaler) 2 puff INHALE Q4H PRN PRN Reason: shortness of breath or wheezing Atorvastatin Calcium (Atorvastatin Calcium 20 Mg Tablet) 20 mg G-TUBE DAILY [facility] Last Admin: 12/19/23 09:12 Dose: 20 mg Bisacodyl (Bisacodyl 10 Mg Supp.Rect) 10 mg [place] DAILY PRN PRN Reason: Constipation Diazepam (Diazepam 2 Mg Tablet) 3 mg G-TUBE BID [facility] Last Admin: 12/19/23 09:12 Dose: 3 mg Doxazosin Mesylate (Doxazosin Mesylate 2 Mg Tablet) 4 mg G-TUBE BEDTIME [facility] Last Admin: 12/18/23 22:43 Dose: 4 mg Enoxaparin Sodium (Enoxaparin Sodium 30 Mg/0.3 Ml Syringe) 30 mg SUBCUT Q24H [facility] Last Admin: 12/18/23 16:45 Dose: 30 mg Dextrose (D5w) 1,000 mls @ 75 mls/hr IVCONT .[id number] [facility] Last Admin: 12/19/23 05:42 Dose: 75 mls/hr Lactulose (Lactulose 20 Gm/30 Ml Solution) 10 gm G-TUBE BID [facility] Last Admin: 12/19/23 09:11 Dose: 10 gm Levothyroxine Sodium (Levothyroxine Sodium 112 Mcg Tablet) 112 mcg G-TUBE DAILY@0600 [facility] Last Admin: 12/19/23 05:43 Dose: 112 mcg Nicotine (Nicotine 7 Mg Patch.Td24) 7 mg TRANSDERMA Q24H PRN PRN Reason: Smoking Cessation Perphenazine (Perphenazine 8 Mg Tablet) 8 mg G-TUBE BID [facility] Last Admin: 12/19/23 09:12 Dose: 8 mg Senna (Sennosides 8.6 Mg Tablet) 17.2 mg G-TUBE DAILY PRN PRN Reason: Constipation Sodium Chloride (0.9 % Sodium Chloride Flush 3 Ml Syringe) 3 ml IVFLUSH QSHIFT [facility] Last Admin: 12/19/23 09:11 Dose: 3 ml Home Medications ?Medication ?Instructions ?Recorded ?Confirmed ?Last Taken ?Type bisacodyl 10 mg rectal suppository 10 mg [place] DAILY PRN Constipation 09/20/22 12/16/23 Unknown History (Dulcolax (bisacodyl)) sodium phosphates 19 gram-7 118 ml [place] DAILY PRN Constipation 09/20/22 12/16/23 Unknown History gram/118 mL enema (Fleet Enema) lactulose 10 gram/15 mL oral 15 ml feeding tube BID 09/26/22 12/16/23 Unknown History solution levothyroxine 112 mcg tablet 112 mcg feeding tube DAILY@0600 09/26/22 12/16/23 Unknown History simvastatin 40 mg tablet 40 mg feeding tube BEDTIME 09/26/22 12/16/23 Unknown History nicotine 7 mg/24 hr daily 1 patch transdermal Q24H PRN 12/05/22 12/16/23 Unknown History transdermal patch Smoking Cessation polyvinyl alcohol 1.4 % eye drops 1 drp ophthalmic (eye) Q4H PRN Dry 12/05/22 12/16/23 Unknown History (Artificial Tears (polyvinyl Eyes alcohol)) sennosides 8.6 mg tablet (senna) 17.2 mg feeding tube DAILY PRN 12/05/22 12/16/23 Unknown History Constipation diazepam 2 mg tablet 3 mg feeding tube BID 10/03/23 12/16/23 Unknown History albuterol sulfate 90 mcg/actuation 2 puff inhalation Q4H PRN 10/13/23 12/16/23 Unknown History aerosol inhaler shortness of breath or wheezing bethanechol chloride 50 mg tablet 50 mg feeding tube BID 10/13/23 12/16/23 Unknown History perphenazine 8 mg tablet 8 mg feeding tube BID 10/13/23 12/16/23 Unknown History terazosin 5 mg capsule 5 mg feeding tube BEDTIME 10/13/23 12/16/23 Unknown History acetaminophen 325 mg tablet 650 mg feeding tube Q6H PRN Fever 12/16/23 12/16/23 Unknown History Or Pain Physical Exam Vital Signs: Last Vital Signs Temp 96.9 F 12/19/23 08:00 Pulse 90 12/19/23 08:00 Resp 16 12/19/23 08:00 BP 91/63 12/19/23 08:00 Pulse Ox 96 12/19/23 08:00 O2 Del Method Room Air 12/19/23 08:00 BMI result Body Mass Index 18.6 Const General: ill appearing Neck Neck: Yes supple Resp Auscultation: clear to auscultation bilaterally Cardio Palpation: no palpable S3 Heart sounds: no rubs GI Palpation (GI): Soft to palpation Auscultation: normal bowel sounds Neuro Motor exam (neuro): no asterixis Results Lab Results 12/17/23 06:00 12/19/23 06:42 Lab results: Chemistry 12/16/23 12/16/23 12/16/23 10:34 14:58 16:23 Sodium 173 H* D 167 H* 167 H* Potassium 4.7 D 4.0 4.1 Carbon Dioxide 34 H 33 H 31 H BUN 97 H 92 H 91 H Creatinine 2.66 H 2.54 H 2.54 H Calcium 9.8 9.2 D 9.3 12/16/23 12/17/23 12/17/23 19:55 00:50 06:00 Sodium 164 H* 165 H* 166 H* Potassium 4.2 4.1 4.5 Carbon Dioxide 26 27 27 BUN 92 H 91 H 98 H Creatinine 2.44 H 2.57 H 2.77 H Calcium 9.1 9.3 9.4 12/17/23 12/17/23 12/17/23 11:55 15:57 19:45 Sodium 162 H* 159 H 158 H Potassium 4.1 4.0 4.3 Carbon Dioxide 28 26 30 H BUN 98 H 97 H 97 H Creatinine 2.93 H 2.83 H 2.92 H Calcium 9.1 9.2 9.4 12/18/23 12/18/23 12/18/23 00:02 04:00 12:18 Sodium 155 H 153 H 150 H Potassium 3.8 3.4 4.0 Carbon Dioxide 25 26 27 BUN 97 H 94 H 94 H Creatinine 3.13 H 2.99 H 2.91 H Calcium 9.1 8.8 9.0 12/18/23 12/18/23 12/19/23 16:24 19:58 00:39 Sodium 150 H 149 H 149 H Potassium 3.9 4.2 3.8 Carbon Dioxide 28 26 26 BUN 93 H 91 H 91 H Creatinine 2.91 H 2.91 H 2.85 H Calcium 9.0 9.0 8.9 12/19/23 06:42 Sodium 146 H Potassium 3.7 Carbon Dioxide 25 BUN 87 H Creatinine 2.72 H Calcium 8.7 Hematology 12/16/23 12/17/23 10:34 06:00 WBC 11.2 H 8.1 Hgb 12.9 L D 12.0 L Plt Count 234 201 Assessment and Plan (1) Acute hypernatremia: Status: Acute (2) Acute renal failure: Qualifiers: Acute renal failure type: unspecified Qualified Code(s): N17.9 - Acute kidney failure, unspecified Status: Acute Plan Elderly man with acute kidney injury and hypernatremia due to free water deficit. Obstruction should be ruled out. Anemia Recommendations Keep intake more than output with hypotonic fluids. Use D5W. Serum sodium is gradually improving and we will continue to follow serum sodium levels. No significant improvement in the serum creatinine. Check bladder scan and if he has retention would proceed with a full renal ultrasonogram. Watch urine output Procedures Date of Service Date of Service: 12/19/23
--- NOTE | 2023-12-19 11:25 | MHC.CLN ---
F/U REVIEWED LABS SERUM SODIUM IMPROVING SLOWLY PT RECEIVING TF JEVITY 1.0 AT MAX GOAL RATE 60ML/HR PROVIDES 1526KCALS (29KCALS/KG), 64G PROTEIN (1.2G/KG), 1202ML FREE WATER FROM FORMULA INCREASE FREE WATER FLSUHES TO 300ML FREE WATER FLUSHES VIA PEG TUBE Q 4 HRS PROVIDES (3002ML TOTAL WATER FROM FORMULA AND FLUSHES; 53.9ML/KG ) MONITOR TOLERANCE, RESIDUALS AND LYTES
[2023-12-19 12:00] VITALS: BP 100/62; PULSE 86; RESP 20; TEMP 36.1; O2SAT 94
[2023-12-19 12:21] LABS: Anion Gap 13 (12-20); Blood Urea Nitrogen 87 mg/dL (9-16); Calcium 8.6 mg/dL (8.4-10.2); Carbon Dioxide 26 mmol/L (22-29); Chloride 110 mmol/L (96-108); Creatinine Clr Calc Pharmacy 16.8; Estimated Glomerular Filt Rate 22; Glucose Random 110 mg/dL (60-115); Potassium 3.8 mmol/L (3.3-5.1); Sodium 145 mmol/L (135-145)
--- NOTE | 2023-12-19 13:52 | MHC.CM.PN ---
Addendum entered by Nilda Bustamante, DIEGO 12/19/23 16:18: DC CANCELLED D/T ULTRASOUND RESULTS. Original Note: ANTIC PT WILL BE MEDICALLY CLEARED PENDING RENAL ULTRASOUND RESULTS, CM CONTACTED PT'S GUARDIAN RITCHIE DIAMOND [phone] TO NOTIFY OF PENDING DC, RITCHIE AGREEABLE TO PLAN AND IS AWARE CM WILL CONTACT HER TOMORROW IF PT DID NOT TXFR BACK TO SNF, RAYA SARABIA NOTIFIED AND CM SPOKE TO NURSE ON [facility] WHO REQUESTS NURSE TO NURSE, PT'S RN AWARE VIA KT FOR TRNASPORT AT 6PM.
--- NOTE | 2023-12-19 14:32 | P.DS_ITS ---
DS: Providers Provider Date of Service: 12/19/23 Date of admission: 12/16/23 15:24 Primary care physician: Jeffrey Delatorre DO Consults: 12/19/23 08:02 Consult to Nephrology Routine Consulting Provider: [facility] Reason for consultation: KELLY, Hypernatremia for eval and follow up OP DS: Diagnosis Discharge Diagnosis (1) Acute hypernatremia: Status: Acute (2) Acute renal failure: Status: Acute (3) Acute metabolic encephalopathy: Status: Acute DS: Summary Hospital Course Hospital Course: Admission note HPI from ICU History is very limited due to patient's paranoid schizophrenia and is unable to talk in sentences 73-year-old male who is chronically debilitated and a snf resident due to paranoid schizophrenia status post type PEG tube placement and tube feeds, history of COPD on as needed home oxygen, history of TBI, history of hypertension, hyperlipidemia, BPH, hypothyroidism, 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 Patient does not give much history given his psych issues, when asked if he is hungry he says no, he says yes to if he is thirsty, when asked if he is eating well he is shows his PEG tube. He denies any fever, denies any cough and denies any other complaints Hospital course The patient was admitted to ICU for treatment of Acute hypernatremia of 171 complicated by acute metabolic encephalopathy Possibly due to volume depletion as patient is malnourished on tube feeds. Started on IV fluids with smooth trending down in Sodium level of 7-10 mg [id number] with improvement in mental status back to baseline. Improved to 145 at the day of discharge. Suggest increase free water boluses to 300cc Q4 and follow Sodium level as outpatient. He was also noted to have Acute kidney injury secondary to volume depletion leading to ATN with Creatinine stablized at 2.9 from baseline of almost 1 since admission. US renal system did not show any evidence of obstruction as the patient was evaluated by photographic hand developer who recommended avoidance of any nephrotoxic medications and to follow with him as outpatient. Discharge plan moderate protein calorie malnutrition due to no intake due to delerium now on ppn, once intake picks up can dc ppn Physical Exam Vital Signs: Vital Signs: Last Vital Signs Temp 96.9 F 12/19/23 08:00 Pulse 90 12/19/23 08:00 Resp 16 12/19/23 08:00 BP 91/63 12/19/23 08:00 Pulse Ox 96 12/19/23 08:00 O2 Del Method Room Air 12/19/23 08:00 BMI result Body Mass Index 18.6 Const: Other: Constitutional : interactive with stimulation, not in distress Cardiovascular : no JVP, no lower extremity edema Respiratory : bilateral chest movement, not in resp distress Gastrointestinal: soft, lax, Non tender, G-tube in place Skin : Warm, Dry Neurological : sleeping, responds to stimulai , speech non-coherent DS: Data Data Completed and Pending Completed studies during hospitalization [Text1]: Procedures Introduction of Vasopressor into Peripheral Vein, Percutaneous Approach ( 4) Restriction of Abdominal Aorta with Intraluminal Device, Percutaneous Approach (12/24/22) Labs on day of discharge: Laboratory Results - last 24 hr 12/18/23 12/18/23 12/19/23 16:24 19:58 00:39 Sodium 150 H 149 H 149 H Potassium 3.9 4.2 3.8 Chloride 113 H 113 H 111 H Carbon Dioxide 28 26 26 Anion Gap 13 14 16 BUN 93 H 91 H 91 H Creatinine 2.91 H 2.91 H 2.85 H Estim Creat Clear Calc 16.5 16.5 16.9 Estimated GFR 21 21 22 Random Glucose 127 H 107 141 H Calcium 9.0 9.0 8.9 12/19/23 12/19/23 06:42 12:00 Sodium 146 H 145 Potassium 3.7 3.8 Chloride 111 H 110 H Carbon Dioxide 25 26 Anion Gap 14 13 BUN 87 H 87 H Creatinine 2.72 H 2.80 H Estim Creat Clear Calc 17.3 16.8 Estimated GFR 23 22 Random Glucose 117 H 110 Calcium 8.7 8.6 Imaging Chest x-ray: Radiologist's impression: ITS Impressions Chest X-Ray 12/16/23 09:27 IMPRESSION: Unremarkable examination. Discharge Plan Discharge Anticipated Discharge Date/Time: 12/19/23 14:28 Patient Disposition: er [facility] Discharge Diagnosis: Acute renal failure Referrals: [facility] [Outside] - 1 Day (AGENCY SALES MANAGEMENT [facility]) Jeffrey Delatorre DO [Primary Care Provider] - 1 Week Discharge Medications: Continued acetaminophen 325 mg Tablet 650 mg feeding tube Q6H PRN (Reason: Fever Or Pain) Rx Instructions: DO NOT EXCEED 3 GRAMS IN 24 HOURS perphenazine 8 mg tablet 8 mg feeding tube BID terazosin 5 mg capsule 5 mg feeding tube BEDTIME bethanechol chloride 50 mg tablet 50 mg feeding tube BID albuterol sulfate 90 mcg/actuation HFA aerosol inhaler 2 puff inhalation Q4H PRN (Reason: shortness of breath or wheezing) lactulose 10 gram/15 mL solution 15 ml feeding tube BID simvastatin 40 mg tablet 40 mg feeding tube BEDTIME levothyroxine 112 mcg tablet 112 mcg feeding tube DAILY@0600 bisacodyl [Dulcolax (bisacodyl)] 10 mg suppository 10 mg [place] DAILY PRN (Reason: Constipation) Rx Instructions: USE IF SENNA IS INEFFECTIVE Fleet Enema 19-7 gram/118 mL enema 118 ml [place] DAILY PRN (Reason: Constipation) polyvinyl alcohol [Artificial Tears (polyvin alc)] 1.4 % drops 1 drp ophthalmic (eye) Q4H PRN (Reason: Dry Eyes) nicotine 7 mg/24 hr patch 24 hour 1 patch transdermal Q24H PRN (Reason: Smoking Cessation) sennosides [senna] 8.6 mg tablet 17.2 mg feeding tube DAILY PRN (Reason: Constipation) diazepam 2 mg tablet 3 mg feeding tube BID Diet: Advance to usual diet Activity on Discharge: As tolerated Stand Alone Forms: Patient Portal Discharge page Print Language: Irish Other Ambulatory Orders: Basic Metabolic Panel (Routine) Timeframe: 4 Days Facility: [facility] - Location: Laboratory Ordered By: Dale Kay Care Plan Goals: Read below Health Concerns: Read below Plan of Treatment: Read below Assessment: Increase Free water flushes to 300 Q4 hours. Follow Sodium level as outpatient Follow with dr Harden from Nephrology as outpatient
[2023-12-19 15:34] VITALS: BP 121/76; PULSE 80; RESP 16; TEMP 36.7; O2SAT 95
[2023-12-19] MEDS: Enoxaparin Sodium 30 MG/0.3 ML SYRINGE SUBCUT (15:59)
--- NOTE | 2023-12-19 16:11 | HO.PM.IMPN ---
Subjective Subjective Date of Service: 12/19/23 Interval History: Seen and evaluated this morning Encephalopathy improving Sodium trending down to 146 Cr stable at almost 2 US showing Rt moderate hydronephrosis with Lt renal artery stenosis Review of Systems Review of Systems: Yes all other systems are reviewed and are negative Physical Exam Vital Signs: Vital Signs: Last Vital Signs Temp 98.1 F 12/19/23 15:34 Pulse 80 12/19/23 15:34 Resp 16 12/19/23 15:34 BP 121/76 12/19/23 15:34 Pulse Ox 95 12/19/23 15:34 O2 Del Method Room Air 12/19/23 15:34 BMI result Body Mass Index 18.6 Const: Other: Constitutional : interactive with stimulation, not in distress Cardiovascular : no JVP, no lower extremity edema Respiratory : bilateral chest movement, not in resp distress Gastrointestinal: soft, lax, Non tender, G-tube in place Skin : Warm, Dry Neurological : sleeping, responds to stimulai , speech non-coherent Objective Data Active Medications Acetaminophen (Acetaminophen 325 Mg Tablet) 650 mg G-TUBE Q6H PRN PRN Reason: Fever Or Pain Albuterol Sulfate (Albuterol Sulfate 90 Mcg 8 Gm Inhaler) 2 puff INHALE Q4H PRN PRN Reason: shortness of breath or wheezing Atorvastatin Calcium (Atorvastatin Calcium 20 Mg Tablet) 20 mg G-TUBE DAILY [facility] Last Admin: 12/19/23 09:12 Dose: 20 mg Documented By: ARI Bisacodyl (Bisacodyl 10 Mg Supp.Rect) 10 mg ID DAILY PRN PRN Reason: Constipation Diazepam (Diazepam 2 Mg Tablet) 3 mg G-TUBE BID [facility] Last Admin: 12/19/23 09:12 Dose: 3 mg Documented By: ARI Doxazosin Mesylate (Doxazosin Mesylate 2 Mg Tablet) 4 mg G-TUBE BEDTIME [facility] Last Admin: 12/18/23 22:43 Dose: 4 mg Documented By: DAQUAN Enoxaparin Sodium (Enoxaparin Sodium 30 Mg/0.3 Ml Syringe) 30 mg SUBCUT Q24H [facility] Last Admin: 12/19/23 15:59 Dose: 30 mg Documented By: ARI Dextrose (D5w) 1,000 mls @ 75 mls/hr IVCONT .[id number] [facility] Last Admin: 12/19/23 05:42 Dose: 75 mls/hr Documented By: NEGRO Lactulose (Lactulose 20 Gm/30 Ml Solution) 10 gm G-TUBE BID [facility] Last Admin: 12/19/23 09:11 Dose: 10 gm Documented By: ARI Levothyroxine Sodium (Levothyroxine Sodium 112 Mcg Tablet) 112 mcg G-TUBE DAILY@0600 [facility] Last Admin: 12/19/23 05:43 Dose: 112 mcg Documented By: NEGRO Nicotine (Nicotine 7 Mg Patch.Td24) 7 mg TRANSDERMA Q24H PRN PRN Reason: Smoking Cessation Perphenazine (Perphenazine 8 Mg Tablet) 8 mg G-TUBE BID [facility] Last Admin: 12/19/23 09:12 Dose: 8 mg Documented By: ARI Senna (Sennosides 8.6 Mg Tablet) 17.2 mg G-TUBE DAILY PRN PRN Reason: Constipation Sodium Chloride (0.9 % Sodium Chloride Flush 3 Ml Syringe) 3 ml IVFLUSH QSHIFT [facility] Last Admin: 12/19/23 15:59 Dose: 3 ml Documented By: ARI Labs 12/17/23 06:00 12/19/23 12:00 Labs: Laboratory Results - last 24 hr 12/18/23 12/18/23 12/19/23 16:24 19:58 00:39 Anion Gap 13 14 16 Estim Creat Clear Calc 16.5 16.5 16.9 Estimated GFR 21 21 22 Random Glucose 127 H 107 141 H Calcium 9.0 9.0 8.9 12/19/23 12/19/23 06:42 12:00 Anion Gap 14 13 Estim Creat Clear Calc 17.3 16.8 Estimated GFR 23 22 Random Glucose 117 H 110 Calcium 8.7 8.6 Assessment and Plan (1) Acute metabolic encephalopathy: Status: Acute (2) Acute renal failure: Status: Acute (3) Acute hypernatremia: Status: Acute (4) Hydronephrosis determined by ultrasound: Status: Acute Plan A 73 years old male with PMH of TBI, AAA s/p elective repair, COPD on prn home O2, hypothyroidism, HTN, HLD, BPH, and paranoid schizophrenia who presents with altered mentation and sodim level of 171. Acute hypernatremia complicated by acute metabolic encephalopathy Possibly due to volume depletion, patient is malnourished on tube feeds Sodium to 146 this morning on 100cc D5W Continue D5W follow BMP adjust the tube feeds with more water content Acute kidney injury secondary to Lt renal artery stenosis and Rt Hydronephrosis Creatinine at 2.9 Closely monitor I's and O's Nephrology following Urology consult Discuss with Vascular and IR re possible stenosis follow BMP COPD not in exacerbation Hypertension monitor Paranoid schizophrenia Home medications restarted DVT PPx Lovenox The patient needs overnight hospital stay for Hypernatremia management and hydronephrosis causing KELLY Quality Stroke Does the patient have a stroke diagnosis?: No VTE Prior VTE?: No VTE Risk Level:: Medical - low VTE Device Contraindication: N/A - Device Ordered VTE Drug Contraindication: N/A - Med Ordered
[2023-12-19 17:19] LABS: Appearance Urine Turbid; Color Urine Yellow; Glucose Urine UA Negative (Negative); Leukocyte Esterase Urine Large (3+) (Negative); Nitrite Urine Negative (Negative); PH 6.5 (5.0-9.0); UMIC TRIGGER UACC YES; Urine Blood Large (3+) (Negative); Urine Ketones Negative (Negative); Urine Protein 100 (2+) mg/dL (Neg-Trace)
[2023-12-19 18:09] LABS: Bacteria Urine 4+ (None Seen); Hyaline Casts Urine 0-2 /LPF (0-2); Squamous Epithelial Cell Urine 0-2 /HPF (0-2); UACC Culture Trigger YES; WBC Urine >50 /HPF (0-5)
[2023-12-19 19:11] VITALS: BP 109/74; PULSE 87; RESP 16; TEMP 36.8; O2SAT 94
[2023-12-19] MEDS: Doxazosin Mesylate 2 MG TABLET 4 MG G-TUBE (21:46)
[2023-12-19 23:47] VITALS: BP 106/55; PULSE 88; RESP 16; TEMP 36.7; O2SAT 95
--- NOTE | 2023-12-20 03:01 | PM.UROCN ---
History of Present Illness Consult details Consult date: 12/20/23 Narrative: 73 years old male with PMH of TBI, AAA s/p elective repair, COPD on prn home O2, hypothyroidism, HTN, HLD, BPH, and paranoid schizophrenia who was admitted due to altered mentation and sodium level of 171. followed by Nephrology correcting serum NA. Urology called due to renal US findings right hydronephrosis. Patient has left renal artery stenosis noted on previous CT aortogram 09/30/2023 Review of Systems Review of Systems: Yes all other systems are reviewed and are negative Constitutional: Constitutional: Reports no additional constitutional complaints Eyes: Eyes: Reports no additional eye complaints ENT: Reports system reviewed and no additional complaints, except as documented Cardiovascular: Cardiovascular: Reports no additional cardiovascular complaints Respiratory: Respiratory: Reports no additional respiratory complaints Gastrointestinal: Gastrointestinal: Reports no additional gastrointestinal complaints Genitourinary: Genitourinary: Reports as per HPI Musculoskeletal: Musculoskeletal: Reports no additional musculoskeletal complaints Integumentary/Breasts: Skin/Breast: Reports system reviewed and no additional complaints, except as docu Neurologic: Reports system reviewed and no additional complaints, except as documented Psychiatric: Psychiatric: Reports no additional psychiatric complaints Endocrine: Endocrine: Reports no additional endocrine complaints Hematologic/Lymphatic: Hematologic/Lymphatic: Reports no additional hematologic/lymphatic complaints Allergic/Immunologic: Allergic/Immunologic: Reports no additional allergic/immunologic complaints [facility] Past Medical History Medical History Lung mass Swallowing problem Pulmonary emphysema COVID-19 vaccine series completed History of COVID-19 Resides in intermediate facility History of falling Personal history of traumatic brain injury Other specified intracranial injury without loss of consciousness, subsequent encounter Paralytic gait Benign prostatic hyperplasia without lower urinary tract symptoms Pain in left hip Primary generalized (osteo)arthritis Constipation, unspecified Impulse disorder, unspecified Trichotillomania Alcohol dependence, uncomplicated Hyperlipidemia, unspecified Hypothyroidism, unspecified Weakness Unspecified lack of coordination Muscle weakness (generalized) Age-related nuclear cataract, bilateral Unspecified abnormalities of gait and mobility Personal history of COVID-19 Repeated falls Lefort i fracture, initial encounter for closed fracture Unsteadiness on feet Other abnormalities of gait and mobility Dysphagia, oropharyngeal phase Paranoid schizophrenia Family History Family History Unknown No problems noted. 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 If so, by whom?: No Do you feel safe in your current relationship?: Yes Is there a partner from a previous relationship who is making you feel unsafe now?: No Are you made to feel afraid or neglected: No Advance Directives: Yes Advance Directives on File: Yes Advance Directives Date on File: 12/05/22 Do you have a plan to hurt others: No Plan Recently lost weight without trying: Unsure Nutrition Risks: Difficulty swallowing and Receiving home tube feeding or CPN service: No Current occupational status: disabled Meds Allergies Allergy/AdvReac Type Severity Reaction Status Date / Time cefpodoxime Allergy Intermediate Rash Verified 12/16/23 09:25 Active Medications: Current Medications Acetaminophen (Acetaminophen 325 Mg Tablet) 650 mg G-TUBE Q6H PRN PRN Reason: Fever Or Pain Albuterol Sulfate (Albuterol Sulfate 90 Mcg 8 Gm Inhaler) 2 puff INHALE Q4H PRN PRN Reason: shortness of breath or wheezing Atorvastatin Calcium (Atorvastatin Calcium 20 Mg Tablet) 20 mg G-TUBE DAILY [facility] Last Admin: 12/19/23 09:12 Dose: 20 mg Bisacodyl (Bisacodyl 10 Mg Supp.Rect) 10 mg MT DAILY PRN PRN Reason: Constipation Diazepam (Diazepam 2 Mg Tablet) 3 mg G-TUBE BID [facility] Last Admin: 12/19/23 21:46 Dose: 3 mg Doxazosin Mesylate (Doxazosin Mesylate 2 Mg Tablet) 4 mg G-TUBE BEDTIME [facility] Last Admin: 12/19/23 21:46 Dose: 4 mg Enoxaparin Sodium (Enoxaparin Sodium 30 Mg/0.3 Ml Syringe) 30 mg SUBCUT Q24H [facility] Last Admin: 12/19/23 15:59 Dose: 30 mg Dextrose (D5w) 1,000 mls @ 75 mls/hr IVCONT .[id number] [facility] Last Admin: 12/19/23 16:42 Dose: 75 mls/hr Lactulose (Lactulose 20 Gm/30 Ml Solution) 10 gm G-TUBE BID [facility] Last Admin: 12/19/23 21:47 Dose: 10 gm Levothyroxine Sodium (Levothyroxine Sodium 112 Mcg Tablet) 112 mcg G-TUBE DAILY@0600 [facility] Last Admin: 12/19/23 05:43 Dose: 112 mcg Nicotine (Nicotine 7 Mg Patch.Td24) 7 mg TRANSDERMA Q24H PRN PRN Reason: Smoking Cessation Perphenazine (Perphenazine 8 Mg Tablet) 8 mg G-TUBE BID [facility] Last Admin: 12/19/23 21:46 Dose: 8 mg Senna (Sennosides 8.6 Mg Tablet) 17.2 mg G-TUBE DAILY PRN PRN Reason: Constipation Sodium Chloride (0.9 % Sodium Chloride Flush 3 Ml Syringe) 3 ml IVFLUSH QSHIFT [facility] Last Admin: 12/20/23 01:09 Dose: Not Given Home Medications ?Medication ?Instructions ?Recorded ?Confirmed ?Last Taken ?Type bisacodyl 10 mg rectal suppository 10 mg MT DAILY PRN Constipation 09/20/22 12/16/23 Unknown History (Dulcolax (bisacodyl)) sodium phosphates 19 gram-7 118 ml MT DAILY PRN Constipation 09/20/22 12/16/23 Unknown History gram/118 mL enema (Fleet Enema) lactulose 10 gram/15 mL oral 15 ml feeding tube BID 09/26/22 12/16/23 Unknown History solution levothyroxine 112 mcg tablet 112 mcg feeding tube DAILY@0600 09/26/22 12/16/23 Unknown History simvastatin 40 mg tablet 40 mg feeding tube BEDTIME 09/26/22 12/16/23 Unknown History nicotine 7 mg/24 hr daily 1 patch transdermal Q24H PRN 12/05/22 12/16/23 Unknown History transdermal patch Smoking Cessation polyvinyl alcohol 1.4 % eye drops 1 drp ophthalmic (eye) Q4H PRN Dry 12/05/22 12/16/23 Unknown History (Artificial Tears (polyvinyl Eyes alcohol)) sennosides 8.6 mg tablet (senna) 17.2 mg feeding tube DAILY PRN 12/05/22 12/16/23 Unknown History Constipation diazepam 2 mg tablet 3 mg feeding tube BID 10/03/23 12/16/23 Unknown History albuterol sulfate 90 mcg/actuation 2 puff inhalation Q4H PRN 10/13/23 12/16/23 Unknown History aerosol inhaler shortness of breath or wheezing bethanechol chloride 50 mg tablet 50 mg feeding tube BID 10/13/23 12/16/23 Unknown History perphenazine 8 mg tablet 8 mg feeding tube BID 10/13/23 12/16/23 Unknown History terazosin 5 mg capsule 5 mg feeding tube BEDTIME 10/13/23 12/16/23 Unknown History acetaminophen 325 mg tablet 650 mg feeding tube Q6H PRN Fever 12/16/23 12/16/23 Unknown History Or Pain Physical Exam Vital Signs: Vital Signs: Last Vital Signs Temp 98.1 F 12/19/23 23:47 Pulse 88 12/19/23 23:47 Resp 16 12/19/23 23:47 BP 106/55 L 12/19/23 23:47 Pulse Ox 95 12/19/23 23:47 O2 Del Method Room Air 12/19/23 23:47 BMI result Body Mass Index 18.6 Results Labs 12/17/23 06:00 12/20/23 06:01 Labs: Abnormal lab results 12/19/23 12/19/23 12/19/23 Range/Units 06:42 12:00 16:54 Sodium 146 H (135-145) mmol/L Chloride 111 H 110 H (96-108) mmol/L BUN 87 H 87 H (9-16) mg/dL Creatinine 2.72 H 2.80 H (0.5-1.4) mg/dL Random Glucose 117 H (60-115) mg/dL Urine Protein 100 (2+) H (Neg-Trace) mg/dL Urine Blood Large (3+) H (Negative) Ur Leukocyte Esterase Large (3+) H (Negative) Urine RBC 3-5 H (0-2) /HPF Urine WBC >50 H (0-5) /HPF BMP 12/19/23 12/19/23 06:42 12:00 Sodium 146 H 145 Potassium 3.7 3.8 Chloride 111 H 110 H Carbon Dioxide 25 26 BUN 87 H 87 H Creatinine 2.72 H 2.80 H Calcium 8.7 8.6 Urine 12/19/23 Range/Units 16:54 Urine Color Yellow Urine Appearance Turbid Urine pH 6.5 (5.0-9.0) Ur Specific [place] 1.010 (1.005-1.025) Urine Protein 100 (2+) H (Neg-Trace) mg/dL Urine Glucose (UA) Negative (Negative) mg/dL Imaging Abdomen CT scan report/results: report reviewed and image reviewed US - kidney/bladder: report reviewed Additional studies: Date of Service: 12/19/23 EXAMINATION: US RETROPERITONEAL LIMITED (RENAL ONLY) CLINICAL INFORMATION: Acute kidney injury with question of obstruction. COMPARISON: CT abdomen pelvis 09/30/2023 TECHNIQUE: Real-time imaging of the kidneys. FINDINGS: RIGHT KIDNEY: 10.3 x 6.0 x 4.9 cm (SAG x AP x TRV) for a volume of 159 mL. The kidney is normal in size, contour, and echogenicity. Renal cortical thickness is normal. No calculi. A benign complex septated 2.9 cm Bosniak class II renal cyst is noted which requires no additional imaging or follow up. A cyst and is identical area was seen on the recent CT scan. No solid renal masses are seen. There is moderate hydronephrosis present. LEFT KIDNEY: 9.0 x 3.9 x 3.2 cm (SAG x AP x TRV) for a volume of 59 mL. The kidney is small, considerably less volume than the right. Renal cortical thickness is decreased, easier to appreciate on the prior CT. No calculi or focal parenchymal lesions. No hydronephrosis. IMPRESSION: There is a combination of factors at probably account for the patient's deterioration in renal function. There is new right-sided moderate hydronephrosis present. 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 There is significant volume loss in the left kidney which is almost one third the volume of the right kidney. Date of Service: 09/30/23 STUDY PERFORMED: CTA ABDOMEN AND PELVIS WITHOUT AND WITH CONTRAST HISTORY: Abdominal aortic aneurysm, status post endograft repair DESCRIPTION: Routine abdomen and pelvis CTA protocol with contrast was performed. 85 mL of Omnipaque 350 was administered. 3D POSTPROCESSING: Multiple 3-D angiographic images were processed from the initial data set by the chief ultrasound technologist at the modality workstation under concurrent physician supervision. DOSE LOWERING TECHNIQUES: This CT examination was performed using dose optimization techniques as appropriate, variously including the following: - Automated exposure control - Adjustment of mA and/or kV according to patient size (this includes techniques or standardized protocols for targeted exams where dose is matched to indication/reason for exam; i.e. extremities or head) - Use of iterative reconstruction technique DLP: 185 mGycm. COMPARISON: CTA from 04/01/2023 FINDINGS: VASCULAR: ABDOMINAL AORTA: Fusiform infrarenal abdominal aortic aneurysm is again seen now with abdominal aortic to bilateral common iliac artery stent graft. Stent graft is patent with moderate mural thrombus within the stent segment. On the axial images, aneurysm sac measures 8.1 x 6.2 cm, previously measuring 8.5 x 6.3 cm. No evidence of endoleak on the arterial phase images. RIGHT LOWER EXTREMITY: Common iliac, external iliac, internal iliac and visualized femoral arteries are patent and normal in caliber. The scattered atherosclerotic wall calcifications are present.. LEFT LOWER EXTREMITY: Common iliac, external iliac, internal iliac and visualized femoral arteries are patent and normal in caliber. The scattered atherosclerotic wall calcifications are present.. 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 The superior mesenteric artery is patent. Inferior mesenteric artery is occluded at the aneurysm with reconstituted flow in the distal branches. RENAL ARTERIES: There is a moderate stenosis of the ostium of the left renal artery. The right artery is patent. NONVASCULAR: Lung Bases: Emphysematous changes seen in the lung bases. Liver, Gallbladder and Biliary Tree: The liver is normal in size, shape, and attenuation. Stable simple cyst seen in the left lobe of the liver. No biliary ductal dilatation is present. The gallbladder is unremarkable with no evidence of radiopaque gallstones, gallbladder wall thickening, or obvious pericholecystic inflammatory changes. Pancreas: Unremarkable. Spleen: Unremarkable. Adrenal Glands: Unremarkable. Kidneys and Ureters: The kidneys are normal in size, shape, and attenuation. No hydronephrosis, hydroureter, or calculi seen. No perinephric stranding. 3.4 cm simple cyst again seen in the lower pole the right kidney which is stable. No follow-up indicated. Bladder: Irregular bowel wall thickening with large right posterior bladder diverticulum again seen. Cannot exclude underlying mass. Gastrointestinal Tract: Gastrostomy tube in good position within the stomach. The small and large bowel are unremarkable. The appendix is unremarkable. Abdominal Wall: No significant hernia is appreciated. Lymph Nodes: Normal. Pelvic Viscera: Unremarkable. Osseous Structures: Unremarkable. IMPRESSION: Abdominal aortic aneurysm, status post endograft repair. Aneurysm sac is stable in size. No evidence of endoleak. Assessment and Plan (1) Hydronephrosis determined by ultrasound: Status: Acute (2) Acute renal failure: Qualifiers: Acute renal failure type: unspecified Qualified Code(s): N17.9 - Acute kidney failure, unspecified Status: Acute (3) Acute metabolic encephalopathy: Status: Acute Plan Recommend CT abdomen and pelvis without IV contrast Procedures Date of Service Date of Service: 12/20/23
[2023-12-20 04:00] VITALS: BP 110/69; PULSE 89; RESP 17; TEMP 36.2; O2SAT 94
[2023-12-20] MEDS: Levothyroxine Sodium 112 MCG TABLET G-TUBE (05:37)
[2023-12-20] MEDS: Dextrose 5 % 1,000 ML 75 ML IVCONT (05:37)
[2023-12-20 06:00] VITALS: BMI 19.1
[2023-12-20 06:52] LABS: Anion Gap 13 (12-20); Blood Urea Nitrogen 84 mg/dL (9-16); Calcium 8.6 mg/dL (8.4-10.2); Carbon Dioxide 25 mmol/L (22-29); Chloride 106 mmol/L (96-108); Creatinine Clr Calc Pharmacy 18.6; Estimated Glomerular Filt Rate 24; Glucose Random 121 mg/dL (60-115); Sodium 140 mmol/L (135-145)
[2023-12-20] MEDS: Perphenazine 8 MG TABLET G-TUBE ×2 (07:36→22:20)
[2023-12-20] MEDS: diazePAM 2 MG TABLET 3 MG G-TUBE ×2 (07:36→22:21)
[2023-12-20] MEDS: 0.9 % Sodium Chloride Flush 3 ML SYRINGE IVFLUSH ×3 (07:36→22:26)
[2023-12-20] MEDS: Lactulose 20 GM/30 ML SOLUTION 10 GM G-TUBE ×2 (07:36→22:21)
[2023-12-20] MEDS: Atorvastatin Calcium 20 MG TABLET G-TUBE (07:36)
--- NOTE | 2023-12-20 08:55 | MHC.CM.PN ---
EMR REVIEWED, PER UROLOGY CONSULT AFTER RENAL ULTRASOUND, PT W/HYDRONEPHROSIS WILL NEED CT SCAN W/CONTRAST, NO PLAN FOR DC AT THIS TIME, [facility] UPDATED [facility]IA [facility], CM WILL CONT TO FOLLOW DC NEEDS.
[2023-12-20] MEDS: Dextrose 5 % and 0.45 % NaCl 1,000 ML 80 ML IVCONT ×2 (09:02→22:22)
[2023-12-20 10:24] VITALS: BP 117/75; PULSE 97; RESP 18; TEMP 36.7; O2SAT 97
--- NOTE | 2023-12-20 11:24 | MHC.CLN ---
F/U REVIEWED LABS SERUM SODIUM WNL PT RECEIVING TF JEVITY 1.0 AT MAX GOAL RATE 60ML/HR PROVIDES 1526KCALS (29KCALS/KG), 64G PROTEIN (1.2G/KG), 1202ML FREE WATER FROM FORMULA RETURN FREE WATER FLUSHES TO 240ML FREE WATER FLUSHES VIA PEG TUBE Q 8 HRS PROVIDES (1922ML TOTAL WATER FROM FORMULA AND FLUSHES; 37ML/KG FOR MAINTENANCE) MONITOR TOLERANCE AND LYTES
[2023-12-20 12:00] VITALS: BP 115/70; PULSE 87; RESP 20; TEMP 36.3; O2SAT 95
--- NOTE | 2023-12-20 12:27 | HO.PM.IMPN ---
Subjective Subjective Date of Service: 12/20/23 Interval History: Seen and evaluated this morning Encephalopathy improved back to baseline Sodium trending down to 140 Cr stable at almost 2.6 US showing Rt moderate hydronephrosis with Lt renal artery stenosis Review of Systems Review of Systems: Yes all other systems are reviewed and are negative Physical Exam Vital Signs: Vital Signs: Last Vital Signs Temp 98.0 F 12/20/23 10:24 Pulse 97 12/20/23 10:24 Resp 18 12/20/23 10:24 BP 117/75 12/20/23 10:24 Pulse Ox 97 12/20/23 10:24 O2 Del Method Room Air 12/20/23 10:24 BMI result Body Mass Index 19.1 Const: Other: Constitutional : interactive with stimulation, not in distress Cardiovascular : no JVP, no lower extremity edema Respiratory : bilateral chest movement, not in resp distress Gastrointestinal: soft, lax, Non tender, G-tube in place Skin : Warm, Dry Neurological : alert, responds to stimulai , speech non-coherent but clear Objective Data Active Medications Acetaminophen (Acetaminophen 325 Mg Tablet) 650 mg G-TUBE Q6H PRN PRN Reason: Fever Or Pain Albuterol Sulfate (Albuterol Sulfate 90 Mcg 8 Gm Inhaler) 2 puff INHALE Q4H PRN PRN Reason: shortness of breath or wheezing Atorvastatin Calcium (Atorvastatin Calcium 20 Mg Tablet) 20 mg G-TUBE DAILY [facility] Last Admin: 12/20/23 07:36 Dose: 20 mg Documented By: ARI Bisacodyl (Bisacodyl 10 Mg Supp.Rect) 10 mg [place] DAILY PRN PRN Reason: Constipation Diazepam (Diazepam 2 Mg Tablet) 3 mg G-TUBE BID [facility] Last Admin: 12/20/23 07:36 Dose: 3 mg Documented By: ARI Doxazosin Mesylate (Doxazosin Mesylate 2 Mg Tablet) 4 mg G-TUBE BEDTIME [facility] Last Admin: 12/19/23 21:46 Dose: 4 mg Documented By: IVETTE Enoxaparin Sodium (Enoxaparin Sodium 30 Mg/0.3 Ml Syringe) 30 mg SUBCUT Q24H [facility] Last Admin: 12/19/23 15:59 Dose: 30 mg Documented By: ARI Dextrose/Sodium Chloride (D51/2ns) 1,000 mls @ 80 mls/hr IVCONT .[id number] [facility] Last Admin: 12/20/23 09:02 Dose: 80 mls/hr Documented By: ARI Lactulose (Lactulose 20 Gm/30 Ml Solution) 10 gm G-TUBE BID [facility] Last Admin: 12/20/23 07:36 Dose: 10 gm Documented By: ARI Levothyroxine Sodium (Levothyroxine Sodium 112 Mcg Tablet) 112 mcg G-TUBE DAILY@0600 [facility] Last Admin: 12/20/23 05:37 Dose: 112 mcg Documented By: ALIYA Nicotine (Nicotine 7 Mg Patch.Td24) 7 mg TRANSDERMA Q24H PRN PRN Reason: Smoking Cessation Perphenazine (Perphenazine 8 Mg Tablet) 8 mg G-TUBE BID [facility] Last Admin: 12/20/23 07:36 Dose: 8 mg Documented By: ARI Senna (Sennosides 8.6 Mg Tablet) 17.2 mg G-TUBE DAILY PRN PRN Reason: Constipation Sodium Chloride (0.9 % Sodium Chloride Flush 3 Ml Syringe) 3 ml IVFLUSH QSHIFT [facility] Last Admin: 12/20/23 07:36 Dose: 3 ml Documented By: ARI Labs 12/17/23 06:00 12/20/23 06:01 Labs: Laboratory Results - last 24 hr 12/19/23 12/20/23 16:54 06:01 Hold Purple Top SEE NOTE Anion Gap 13 Estim Creat Clear Calc 18.6 Estimated GFR 24 Random Glucose 121 H Calcium 8.6 Urine Color Yellow Urine Appearance Turbid Urine pH 6.5 Ur Specific [place] 1.010 Urine Protein 100 (2+) H Urine Glucose (UA) Negative Urine Ketones Negative Urine Blood Large (3+) H Urine Nitrite Negative Ur Leukocyte Esterase Large (3+) H Urine RBC 3-5 H Urine WBC >50 H Ur Squamous Epith Cells 0-2 Urine Bacteria 4+ Hyaline Casts 0-2 Assessment and Plan (1) Hydronephrosis determined by ultrasound: Status: Acute (2) Acute metabolic encephalopathy: Status: Acute (3) Acute hypernatremia: Status: Acute (4) Acute renal failure: Status: Acute (5) Renal artery stenosis: Status: Acute Plan A 73 years old male with PMH of TBI, AAA s/p elective repair, COPD on prn home O2, hypothyroidism, HTN, HLD, BPH, and paranoid schizophrenia who presents with altered mentation and sodim level of 171. Acute hypernatremia complicated by acute metabolic encephalopathy due to volume depletion, patient is malnourished on tube feeds Mentation improving to baseline Sodium to 140 this morning Change to D5NS follow BMP adjust the tube feeds with more water content Acute kidney injury secondary to Lt renal artery stenosis and Rt Hydronephrosis Creatinine at 2.6 Closely monitor I's and O's Nephrology following Urology consult rec CT Discuss with Vascular and IR re possible stenosis , will hold on any procedures during this admission Pending CT abd]\pelvis follow BMP COPD not in exacerbation Hypertension monitor Paranoid schizophrenia Home medications restarted DVT PPx Lovenox The patient needs overnight hospital stay for Hypernatremia management and hydronephrosis causing KELLY pending CT scan and possible Urology procedure Quality Stroke Does the patient have a stroke diagnosis?: No VTE Prior VTE?: No VTE Risk Level:: Medical - low VTE Device Contraindication: N/A - Device Ordered VTE Drug Contraindication: N/A - Med Ordered
--- NOTE | 2023-12-20 13:48 | PM.CNGS ---
History of Present Illness Consult details Consult date: 12/20/23 Reason for consult: other (Renal artery stenosis) Narrative: Very pleasant 73-year-old gentleman with a prior history peripheral vascular disease and aortic aneurysm. He actually is status post endovascular aortic aneurysm repair. He had been doing well since that time. Most recently he was admitted to the hospital with acute metabolic encephalopathy. Upon workup he was found to have high-grade left renal artery stenosis. He now presents to us for follow-up. Review of Systems Review of Systems: Yes all other systems are reviewed and are negative Constitutional: Constitutional: Reports no additional constitutional complaints ENT: Reports Normal hearing present Cardiovascular: Cardiovascular: Denies chest pain, Denies chest pain at rest, Denies chest pain with activity and Denies pedal edema Respiratory: Respiratory: Denies cough Gastrointestinal: Gastrointestinal: Denies abdominal pain Musculoskeletal: Musculoskeletal: Denies abnormal gait, Denies muscle cramps and Denies radiating pain into limb Integumentary/Breasts: Skin/Breast: Denies skin ulcer and Denies wounds Neurologic: Reports Normal hearing present and Denies abnormal gait Psychiatric: Psychiatric: Reports no additional psychiatric complaints [facility] Past Medical History Medical History Lung mass Swallowing problem Pulmonary emphysema COVID-19 vaccine series completed History of COVID-19 Resides in detention facility History of falling Personal history of traumatic brain injury Other specified intracranial injury without loss of consciousness, subsequent encounter Paralytic gait Benign prostatic hyperplasia without lower urinary tract symptoms Pain in left hip Primary generalized (osteo)arthritis Constipation, unspecified Impulse disorder, unspecified Trichotillomania Alcohol dependence, uncomplicated Hyperlipidemia, unspecified Hypothyroidism, unspecified Weakness Unspecified lack of coordination Muscle weakness (generalized) Age-related nuclear cataract, bilateral Unspecified abnormalities of gait and mobility Personal history of COVID-19 Repeated falls [place] i fracture, initial encounter for closed fracture Unsteadiness on feet Other abnormalities of gait and mobility Dysphagia, oropharyngeal phase Paranoid schizophrenia Family History Family History Unknown No problems noted. 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 If so, by whom?: No Do you feel safe in your current relationship?: Yes Is there a partner from a previous relationship who is making you feel unsafe now?: No Are you made to feel afraid or neglected: No Advance Directives: Yes Advance Directives on File: Yes Advance Directives Date on File: 12/05/22 Do you have a plan to hurt others: No Plan Recently lost weight without trying: Unsure Nutrition Risks: Difficulty swallowing and Receiving home tube feeding or CPN service: No Current occupational status: disabled Meds Allergies Allergy/AdvReac Type Severity Reaction Status Date / Time cefpodoxime Allergy Intermediate Rash Verified 12/16/23 09:25 Active Medications: Current Medications Acetaminophen (Acetaminophen 325 Mg Tablet) 650 mg G-TUBE Q6H PRN PRN Reason: Fever Or Pain Albuterol Sulfate (Albuterol Sulfate 90 Mcg 8 Gm Inhaler) 2 puff INHALE Q4H PRN PRN Reason: shortness of breath or wheezing Atorvastatin Calcium (Atorvastatin Calcium 20 Mg Tablet) 20 mg G-TUBE DAILY [facility] Last Admin: 12/20/23 07:36 Dose: 20 mg Bisacodyl (Bisacodyl 10 Mg Supp.Rect) 10 mg [place] DAILY PRN PRN Reason: Constipation Diazepam (Diazepam 2 Mg Tablet) 3 mg G-TUBE BID [facility] Last Admin: 12/20/23 07:36 Dose: 3 mg Doxazosin Mesylate (Doxazosin Mesylate 2 Mg Tablet) 4 mg G-TUBE BEDTIME [facility] Last Admin: 12/19/23 21:46 Dose: 4 mg Enoxaparin Sodium (Enoxaparin Sodium 30 Mg/0.3 Ml Syringe) 30 mg SUBCUT Q24H [facility] Last Admin: 12/19/23 15:59 Dose: 30 mg Dextrose/Sodium Chloride (D51/2ns) 1,000 mls @ 80 mls/hr IVCONT .[id number] [facility] Last Admin: 12/20/23 09:02 Dose: 80 mls/hr Lactulose (Lactulose 20 Gm/30 Ml Solution) 10 gm G-TUBE BID [facility] Last Admin: 12/20/23 07:36 Dose: 10 gm Levothyroxine Sodium (Levothyroxine Sodium 112 Mcg Tablet) 112 mcg G-TUBE DAILY@0600 [facility] Last Admin: 12/20/23 05:37 Dose: 112 mcg Nicotine (Nicotine 7 Mg Patch.Td24) 7 mg TRANSDERMA Q24H PRN PRN Reason: Smoking Cessation Perphenazine (Perphenazine 8 Mg Tablet) 8 mg G-TUBE BID [facility] Last Admin: 12/20/23 07:36 Dose: 8 mg Senna (Sennosides 8.6 Mg Tablet) 17.2 mg G-TUBE DAILY PRN PRN Reason: Constipation Sodium Chloride (0.9 % Sodium Chloride Flush 3 Ml Syringe) 3 ml IVFLUSH QSHIFT [facility] Last Admin: 12/20/23 07:36 Dose: 3 ml Home Medications ?Medication ?Instructions ?Recorded ?Confirmed ?Last Taken ?Type bisacodyl 10 mg rectal suppository 10 mg NM DAILY PRN Constipation 09/20/22 12/16/23 Unknown History (Dulcolax (bisacodyl)) sodium phosphates 19 gram-7 118 ml NM DAILY PRN Constipation 09/20/22 12/16/23 Unknown History gram/118 mL enema (Fleet Enema) lactulose 10 gram/15 mL oral 15 ml feeding tube BID 09/26/22 12/16/23 Unknown History solution levothyroxine 112 mcg tablet 112 mcg feeding tube DAILY@0600 09/26/22 12/16/23 Unknown History simvastatin 40 mg tablet 40 mg feeding tube BEDTIME 09/26/22 12/16/23 Unknown History nicotine 7 mg/24 hr daily 1 patch transdermal Q24H PRN 12/05/22 12/16/23 Unknown History transdermal patch Smoking Cessation polyvinyl alcohol 1.4 % eye drops 1 drp ophthalmic (eye) Q4H PRN Dry 12/05/22 12/16/23 Unknown History (Artificial Tears (polyvinyl Eyes alcohol)) sennosides 8.6 mg tablet (senna) 17.2 mg feeding tube DAILY PRN 12/05/22 12/16/23 Unknown History Constipation diazepam 2 mg tablet 3 mg feeding tube BID 10/03/23 12/16/23 Unknown History albuterol sulfate 90 mcg/actuation 2 puff inhalation Q4H PRN 10/13/23 12/16/23 Unknown History aerosol inhaler shortness of breath or wheezing bethanechol chloride 50 mg tablet 50 mg feeding tube BID 10/13/23 12/16/23 Unknown History perphenazine 8 mg tablet 8 mg feeding tube BID 10/13/23 12/16/23 Unknown History terazosin 5 mg capsule 5 mg feeding tube BEDTIME 10/13/23 12/16/23 Unknown History acetaminophen 325 mg tablet 650 mg feeding tube Q6H PRN Fever 12/16/23 12/16/23 Unknown History Or Pain Physical Exam Vital Signs: Vital Signs: Last Vital Signs Temp 97.4 F 12/20/23 12:00 Pulse 87 12/20/23 12:00 Resp 20 12/20/23 12:00 BP 115/70 12/20/23 12:00 Pulse Ox 95 12/20/23 12:00 O2 Del Method Room Air 12/20/23 12:00 BMI result Body Mass Index 19.1 Const: General: cooperative, healthy appearing and comfortable Orientation/consciousness: oriented to person, oriented to place and oriented to time HEENT: Head: Yes normal to inspection Neck: Neck: Yes normal visual inspection Carotids: no bruits Chest: Chest palpation & inspection: normal inspection of the chest Resp: Effort & Inspection: normal respiratory effort and able to speak in complete sentences Auscultation: clear to auscultation bilaterally, no crackles, no rales, no rhonchi and no wheezes Cardio: Rate: regular rate Rhythm: regular rhythm Heart sounds: S1 normal heart sound present and S2 normal heart sound present Bruits: no carotid bruits Peripheral pulses: Peripheral pulses 2+ throughout GI: Inspection: Yes normal to inspection Skin: Wounds: no wounds Hair: normal Neuro: General: oriented to person, oriented to place and oriented to time Cranial nerves: Yes CN's II-XII intact bilaterally and Yes Normal hearing present Cognition (Neuro): normal cognition Motor exam (neuro): 5/5 motor strength present throughout Extrem: Other: venous exam: No significant superficial varicosities or spider telangiectasias, minimal edema General: No clubbing, No cyanosis and No edema Psych: Appearance: grossly normal Mental Status: mental status grossly normal Speech and movement: Normal speech and movement present Results Labs 12/17/23 06:00 12/20/23 06:01 Labs: Abnormal lab results 12/19/23 12/20/23 Range/Units 16:54 06:01 BUN 84 H (9-16) mg/dL Creatinine 2.59 H (0.5-1.4) mg/dL Random Glucose 121 H (60-115) mg/dL Urine Protein 100 (2+) H (Neg-Trace) mg/dL Urine Blood Large (3+) H (Negative) Ur Leukocyte Esterase Large (3+) H (Negative) Urine RBC 3-5 H (0-2) /HPF Urine WBC >50 H (0-5) /HPF BMP 12/20/23 06:01 Sodium 140 Potassium 4.0 Chloride 106 Carbon Dioxide 25 BUN 84 H Creatinine 2.59 H Calcium 8.6 Urine 12/19/23 Range/Units 16:54 Urine Color Yellow Urine Appearance Turbid Urine pH 6.5 (5.0-9.0) Ur Specific [place] 1.010 (1.005-1.025) Urine Protein 100 (2+) H (Neg-Trace) mg/dL Urine Glucose (UA) Negative (Negative) mg/dL All other labs normal. Assessment and Plan (1) Renal artery stenosis: Status: Acute Plan In short patient had undergone endovascular aneurysm repair on 12/24/2022. I did review all the CT scan since that time. I am appreciating a high-grade left renal artery stenosis although the abdominal aorta on the proximal part is very angulated. Overall appears to be doing extremely well from the aortic standpoint. At the current time I will allow his renal function to stabilize and his metabolic encephalopathy to improve prior to any endovascular intervention for this left renal artery. Stable from my perspective for discharge and he can follow up with us as an outpatient. Thank you for allowing us to assist in the care of this patient. If there are any questions or concerns please do not hesitate to contact us. Procedures Date of Service Date of Service: 12/20/23
--- NOTE | 2023-12-20 15:04 | PM.PNNEP ---
Subjective Subjective Date of Service: 12/20/23 Interval history: Seen and evaluated this morning ; Encephalopathy improved back to baseline; Sodium trending down to 140; Cr stable at almost 2.6 ;US showing Rt moderate hydronephrosis with Lt renal artery stenosis Physical Exam Vital Signs: Vital Signs: Last Vital Signs Temp 97.4 F 12/20/23 12:00 Pulse 87 12/20/23 12:00 Resp 20 12/20/23 12:00 BP 115/70 12/20/23 12:00 Pulse Ox 95 12/20/23 12:00 O2 Del Method Room Air 12/20/23 12:00 BMI result Body Mass Index 19.1 Const: General: no acute distress Neck: Neck: Yes supple Resp: Auscultation: diminished lung sounds Cardio: Rate: regular rate GI: Palpation (GI): Soft to palpation Neuro: General: moves all extremities Objective Data Labs 12/17/23 06:00 12/20/23 06:01 Labs: Laboratory Results - last 24 hr 12/19/23 12/20/23 16:54 06:01 Hold Purple Top SEE NOTE Sodium 140 Potassium 4.0 Chloride 106 Carbon Dioxide 25 Anion Gap 13 BUN 84 H Creatinine 2.59 H Estim Creat Clear Calc 18.6 Estimated GFR 24 Random Glucose 121 H Calcium 8.6 Urine Color Yellow Urine Appearance Turbid Urine pH 6.5 Ur Specific [place] 1.010 Urine Protein 100 (2+) H Urine Glucose (UA) Negative Urine Ketones Negative Urine Blood Large (3+) H Urine Nitrite Negative Ur Leukocyte Esterase Large (3+) H Urine RBC 3-5 H Urine WBC >50 H Ur Squamous Epith Cells 0-2 Urine Bacteria 4+ Hyaline Casts 0-2 Microbiology Microbiology Results: Microbiology 12/19/23 16:54 Urine Catheterized - Holland Catheter Urine Culture - Preliminary Culture in progress. Procedures Date of Service Date of Service: 12/20/23 Assessment & Plan Assessment and plan (1) Renal artery stenosis: Status: Acute (2) Hydronephrosis determined by ultrasound: Status: Acute (3) Acute renal failure: Status: Acute (4) Acute hypernatremia: Status: Acute Plan Acute kidney injury due to compromised renal perfusion Has CKD stage III at baseline; hypernatremia resolved Imaging showed Lt renal artery stenosis and Rt Hydronephrosis Creatinine currently at 2.6; urology and vascular surgeon to see patient Continue with current supportive care for now Progress Note: Quality Stroke Does the patient have a stroke diagnosis?: No
[2023-12-20 16:00] VITALS: BP 131/79; PULSE 93; RESP 19; TEMP 36.6; O2SAT 95
[2023-12-20] MEDS: Enoxaparin Sodium 30 MG/0.3 ML SYRINGE SUBCUT (16:31)
[2023-12-20 20:00] VITALS: BP 115/69; PULSE 82; RESP 19; TEMP 36.6; O2SAT 95
[2023-12-20] MEDS: Doxazosin Mesylate 2 MG TABLET 4 MG G-TUBE (22:21)
[2023-12-20 22:48] VITALS: BP 109/71; PULSE 91; RESP 20; TEMP 36.8; O2SAT 92
[2023-12-21 02:56] VITALS: BP 118/72; PULSE 100; RESP 19; TEMP 37.1; O2SAT 94
[2023-12-21] MEDS: Levothyroxine Sodium 112 MCG TABLET G-TUBE (06:13)
[2023-12-21 07:24] LABS: Anion Gap 13 (12-20); Blood Urea Nitrogen 76 mg/dL (9-16); Calcium 8.6 mg/dL (8.4-10.2); Carbon Dioxide 24 mmol/L (22-29); Chloride 111 mmol/L (96-108); Creatinine Clr Calc Pharmacy 18.2; Estimated Glomerular Filt Rate 24; Glucose Random 114 mg/dL (60-115); Sodium 144 mmol/L (135-145)
[2023-12-21 07:50] VITALS: BP 133/79; PULSE 99; RESP 20; TEMP 36.4; O2SAT 95
[2023-12-21] MEDS: Atorvastatin Calcium 20 MG TABLET G-TUBE (09:17)
[2023-12-21] MEDS: Perphenazine 8 MG TABLET G-TUBE ×2 (09:17→20:23)
[2023-12-21] MEDS: diazePAM 2 MG TABLET 3 MG G-TUBE ×2 (09:20→20:23)
[2023-12-21] MEDS: Lactulose 20 GM/30 ML SOLUTION 10 GM G-TUBE ×2 (09:21→20:23)
[2023-12-21 10:47] VITALS: BP 109/67; PULSE 89; RESP 20; TEMP 36.2; O2SAT 93
--- NOTE | 2023-12-21 11:01 | P.PNUR_ITS ---
Subjective Subjective Date of Service: 12/21/23 Interval history: Persistent elevated creatinine CT scan performed - Urinary bladder wall is chronically thickened. Interval worsening wall thickening at the posterior bladder involving the previously identified diverticulum where there is intermixed calcification, highly suspicious for bladder carcinoma. The bladder has lobulated contour and there is likely infiltration of tumor into adjacent perivesical fat. The thick-walled bladder is not clearly distinguished from the prostate gland. * Moderate bilateral hydroureteronephrosis without urinary tract calculi Plan for procedure Saturday. Cystoscopy, bladder biopsy, bilateral retrogrades with stent placement for persistent elevated creatinine despite Holland catheter placement Physical Exam 2 Vital Signs: Vital Signs: Last Vital Signs Temp 97.2 F 12/21/23 10:47 Pulse 89 12/21/23 10:47 Resp 20 12/21/23 10:47 BP 109/67 12/21/23 10:47 Pulse Ox 93 12/21/23 10:47 O2 Del Method Room Air 12/21/23 10:47 BMI result Body Mass Index 19.1 Const: General: cooperative, healthy appearing, comfortable and no acute distress Orientation/consciousness: patient oriented x3 HEENT: Face and sinus: Yes normal facial exam Mouth: moist mucous membranes Neck: Neck: Yes normal visual inspection, Yes full ROM and Yes trachea midline Chest: Chest palpation & inspection: normal inspection of the chest Resp: Effort & Inspection: normal respiratory effort, able to speak in complete sentences and no respiratory distress GI: Inspection: Yes normal to inspection Back/Spine/Pelvis: Cervical Spine: normal cervical lordosis Thoracic/Lumbar Spine: thoracic and lumbar spine normal to inspection Skin: General skin exam: no rashes or lesions noted Neuro: General: patient oriented x3, tone normal and moves all extremities Extrem: General: Yes normal to inspection and Yes capillary refill normal Urology Results Labs 12/17/23 06:00 12/21/23 06:33 Labs: Laboratory Results - last 24 hr 12/21/23 06:33 Hold Purple Top SEE NOTE Sodium 144 Potassium 4.0 Chloride 111 H Carbon Dioxide 24 Anion Gap 13 BUN 76 H Creatinine 2.65 H Estim Creat Clear Calc 18.2 Estimated GFR 24 Random Glucose 114 Calcium 8.6 Progress Note: A&P Assessment and plan (1) Acute renal failure: Status: Acute (2) Hydronephrosis determined by ultrasound: Status: Acute (3) Bladder wall thickening: Status: Acute Plan Risks, benefits and alternatives to therapy were discussed. These include but are not limited to infection, bleeding, damage to local organs and tissues, need for further interventions. Anesthetic risks regarding cardiac arrhythmia, blood clots, and potential mortality were discussed. The patient understands the typical recovery time and the outpatient nature of the procedure. After consideration of these risks the patient gives full informed consent and they wish to move ahead with the procedure. Cystoscopy, bladder biopsy, bilateral retrograde, bilateral stent Time Spent With Patient Time: Total time managing care of this patient today ____ minutes. Progress Note: Quality Stroke Does the patient have a stroke diagnosis?: No
--- NOTE | 2023-12-21 13:39 | P.PNIM_ITS ---
Subjective Subjective Date of Service: 12/21/23 Interval History: Seen and evaluated this morning Encephalopathy improved back to baseline Sodium to 144 Cr stable at almost 2.6 Review of Systems Review of Systems: Yes all other systems are reviewed and are negative Physical Exam 2 Vital Signs: Vital Signs: Last Vital Signs Temp 97.2 F 12/21/23 10:47 Pulse 89 12/21/23 10:47 Resp 20 12/21/23 10:47 BP 109/67 12/21/23 10:47 Pulse Ox 93 12/21/23 10:47 O2 Del Method Room Air 12/21/23 10:47 BMI result Body Mass Index 19.1 Const: Other: Constitutional : interactive , not in distress Cardiovascular : no JVP, no lower extremity edema Respiratory : bilateral chest movement, not in resp distress Gastrointestinal: soft, lax, Non tender, G-tube in place Skin : Warm, Dry, facial and generalized body rash resembling macules Neurological : alert, interactive , speech non-coherent all the time but clear Objective Data Active Medications Acetaminophen (Acetaminophen 325 Mg Tablet) 650 mg G-TUBE Q6H PRN PRN Reason: Fever Or Pain Albuterol Sulfate (Albuterol Sulfate 90 Mcg 8 Gm Inhaler) 2 puff INHALE Q4H PRN PRN Reason: shortness of breath or wheezing Artificial Tears (Artificial Tears 15 Ml Drops) 2 drop EYE-BOTH Q4H PRN PRN Reason: Dry Eyes Atorvastatin Calcium (Atorvastatin Calcium 20 Mg Tablet) 20 mg G-TUBE DAILY [facility] Last Admin: 12/21/23 09:17 Dose: 20 mg Documented By: SOPHIA Bisacodyl (Bisacodyl 10 Mg Supp.Rect) 10 mg [place] DAILY PRN PRN Reason: Constipation Diazepam (Diazepam 2 Mg Tablet) 3 mg G-TUBE BID [facility] Last Admin: 12/21/23 09:20 Dose: 3 mg Documented By: SOPHIA Doxazosin Mesylate (Doxazosin Mesylate 2 Mg Tablet) 4 mg G-TUBE BEDTIME [facility] Last Admin: 12/20/23 22:21 Dose: 4 mg Documented By: ESTELA Enoxaparin Sodium (Enoxaparin Sodium 30 Mg/0.3 Ml Syringe) 30 mg SUBCUT Q24H [facility] Last Admin: 12/20/23 16:31 Dose: 30 mg Documented By: ARI Lactulose (Lactulose 20 Gm/30 Ml Solution) 10 gm G-TUBE BID [facility] Last Admin: 12/21/23 09:21 Dose: 10 gm Documented By: SOPHIA Levothyroxine Sodium (Levothyroxine Sodium 112 Mcg Tablet) 112 mcg G-TUBE DAILY@0600 [facility] Last Admin: 12/21/23 06:13 Dose: 112 mcg Documented By: ESTELA Nicotine (Nicotine 7 Mg Patch.Td24) 7 mg TRANSDERMA Q24H PRN PRN Reason: Smoking Cessation Perphenazine (Perphenazine 8 Mg Tablet) 8 mg G-TUBE BID [facility] Last Admin: 12/21/23 09:17 Dose: 8 mg Documented By: SOPHIA Senna (Sennosides 8.6 Mg Tablet) 17.2 mg G-TUBE DAILY PRN PRN Reason: Constipation Sodium Chloride (0.9 % Sodium Chloride Flush 3 Ml Syringe) 3 ml IVFLUSH QSHIFT [facility] Last Admin: 12/21/23 09:21 Dose: Not Given Documented By: SOPHIA Non-Admin Reason: IV Running Labs 12/17/23 06:00 12/21/23 06:33 Labs: Laboratory Results - last 24 hr 12/21/23 06:33 Hold Purple Top SEE NOTE Anion Gap 13 Estim Creat Clear Calc 18.2 Estimated GFR 24 Random Glucose 114 Calcium 8.6 Microbiology Microbiology Results: Microbiology 12/19/23 16:54 Urine Culture - Preliminary Urine Catheterized - [place] Catheter Gram negative shady Enterococcus/Streptococcus sp Assessment and Plan (1) Renal artery stenosis: Status: Acute (2) Hydronephrosis determined by ultrasound: Status: Acute (3) Acute metabolic encephalopathy: Status: Acute (4) Acute renal failure: Status: Acute (5) Acute hypernatremia: Status: Acute Plan A 73 years old male with PMH of TBI, AAA s/p elective repair, COPD on prn home O2, hypothyroidism, HTN, HLD, BPH, and paranoid schizophrenia who presents with altered mentation and sodim level of 171. Acute hypernatremia complicated by acute metabolic encephalopathy due to volume depletion, patient is malnourished on tube feeds Mentation improving to baseline Sodium to 140 this morning DC D5NS follow BMP adjust the tube feeds with more water content 300 q4 Acute kidney injury secondary to Lt renal artery stenosis and Rt Hydronephrosis Creatinine at 2.6 Closely monitor I's and O's CT abd]\pelvis showing bilateral hydronephrosis Nephrology following Urology to do Cystoscopy and place stents by Saturday Discuss with Vascular and IR re possible stenosis , will hold on any procedures during this admission follow BMP COPD not in exacerbation Hypertension monitor Paranoid schizophrenia Home medications restarted DVT PPx Lovenox The patient needs overnight hospital stay for Hypernatremia management and hydronephrosis causing KELLY pending CT scan and possible Urology procedure Quality Stroke Does the patient have a stroke diagnosis?: No VTE Prior VTE?: No VTE Risk Level:: Medical - low VTE Device Contraindication: N/A - Device Ordered VTE Drug Contraindication: N/A - Med Ordered
[2023-12-21] MEDS: predniSONE 20 MG TABLET 40 MG G-TUBE (14:22)
[2023-12-21 15:15] VITALS: BP 114/78; PULSE 90; RESP 19; TEMP 36.4; O2SAT 95
[2023-12-21] MEDS: 0.9 % Sodium Chloride Flush 3 ML SYRINGE IVFLUSH ×2 (17:15→20:24)
[2023-12-21] MEDS: Enoxaparin Sodium 30 MG/0.3 ML SYRINGE SUBCUT (17:15)
[2023-12-21 20:00] VITALS: BP 119/73; PULSE 89; RESP 16; TEMP 36.2; O2SAT 96
[2023-12-21] MEDS: Doxazosin Mesylate 2 MG TABLET 4 MG G-TUBE (20:23)
[2023-12-22] VITALS (7 sets, daily range): BP systolic 119–141; BP diastolic 68–93; PULSE 87–95; RESP 16–20; TEMP 36.2–36.7; O2SAT 93–98; BMI 22.0
[2023-12-22] MEDS: Levothyroxine Sodium 112 MCG TABLET G-TUBE (06:03)
[2023-12-22 07:15] LABS: Anion Gap 15 (12-20); Blood Urea Nitrogen 76 mg/dL (9-16); Calcium 8.9 mg/dL (8.4-10.2); Carbon Dioxide 21 mmol/L (22-29); Chloride 114 mmol/L (96-108); Creatinine Clr Calc Pharmacy 19.5; Estimated Glomerular Filt Rate 26; Glucose Random 123 mg/dL (60-115); Potassium 4.4 mmol/L (3.3-5.1); Sodium 146 mmol/L (135-145)
[2023-12-22] MEDS: Ampicillin Sodium 1 GM in 0.9 % Sodium Chloride 100 ML IV (08:32)
[2023-12-22] MEDS: Lactulose 20 GM/30 ML SOLUTION 10 GM G-TUBE ×2 (08:37→20:09)
[2023-12-22] MEDS: Perphenazine 8 MG TABLET G-TUBE ×2 (08:38→20:09)
[2023-12-22] MEDS: Atorvastatin Calcium 20 MG TABLET G-TUBE (08:38)
[2023-12-22] MEDS: diazePAM 2 MG TABLET 3 MG G-TUBE (08:38)
[2023-12-22] MEDS: predniSONE 20 MG TABLET 40 MG G-TUBE (08:39)
[2023-12-22] MEDS: Dextrose 5 % 1,000 ML 80 ML IVCONT ×2 (09:14→20:09)
--- NOTE | 2023-12-22 11:55 | P.PNIM_ITS ---
Subjective Subjective Date of Service: 12/22/23 Interval History: Seen and evaluated this morning Encephalopathy improved back to baseline Sodium to 146 Cr stable at almost 2.5 Plan for Cystoscopy tomorrow Review of Systems Review of Systems: Yes all other systems are reviewed and are negative Physical Exam 2 Vital Signs: Vital Signs: Last Vital Signs Temp 97.5 F 12/22/23 11:54 Pulse 92 12/22/23 11:54 Resp 20 12/22/23 11:54 BP 141/90 H 12/22/23 11:54 Pulse Ox 97 12/22/23 11:54 O2 Del Method Room Air 12/22/23 11:54 BMI result Body Mass Index 22.0 Const: Other: Constitutional : interactive , not in distress Cardiovascular : no JVP, no lower extremity edema Respiratory : bilateral chest movement, not in resp distress Gastrointestinal: soft, lax, Non tender, G-tube in place Skin : Warm, Dry, facial and generalized body rash resembling macules Neurological : alert, interactive , moves all extremities, speech fluent but not coherent sometimes Objective Data Active Medications Acetaminophen (Acetaminophen 325 Mg Tablet) 650 mg G-TUBE Q6H PRN PRN Reason: Fever Or Pain Albuterol Sulfate (Albuterol Sulfate 90 Mcg 8 Gm Inhaler) 2 puff INHALE Q4H PRN PRN Reason: shortness of breath or wheezing Amoxicillin/Clavulanate Potassium (Amoxicillin/Potassium Clav 250 Mg Tablet) 250 mg PO Q12H [facility] Artificial Tears (Artificial Tears 15 Ml Drops) 2 drop EYE-BOTH Q4H PRN PRN Reason: Dry Eyes Atorvastatin Calcium (Atorvastatin Calcium 20 Mg Tablet) 20 mg G-TUBE DAILY [facility] Last Admin: 12/22/23 08:38 Dose: 20 mg Documented By: SOPHIA Bisacodyl (Bisacodyl 10 Mg Supp.Rect) 10 mg [place] DAILY PRN PRN Reason: Constipation Diazepam (Diazepam 2 Mg Tablet) 3 mg G-TUBE BID [facility] Last Admin: 12/22/23 08:38 Dose: 3 mg Documented By: SOPHIA Diphenhydramine HCl (Diphenhydramine Hcl 50 Mg/Ml Vial) 25 mg IVPUSH Q6H PRN PRN Reason: Allergic Symptoms Doxazosin Mesylate (Doxazosin Mesylate 2 Mg Tablet) 4 mg G-TUBE BEDTIME [facility] Last Admin: 12/21/23 20:23 Dose: 4 mg Documented By: ESTELA Enoxaparin Sodium (Enoxaparin Sodium 30 Mg/0.3 Ml Syringe) 30 mg SUBCUT Q24H [facility] Last Admin: 12/21/23 17:15 Dose: 30 mg Documented By: SOPHIA Dextrose (D5w) 1,000 mls @ 80 mls/hr IVCONT .[id number] [facility] Last Admin: 12/22/23 09:14 Dose: 80 mls/hr Documented By: SOPHIA Ceftriaxone Sodium 1 gm/ (Sodium Chloride) 50 mls @ 100 mls/hr IV Q24H [facility] Lactulose (Lactulose 20 Gm/30 Ml Solution) 10 gm G-TUBE BID [facility] Last Admin: 12/22/23 08:37 Dose: 10 gm Documented By: SOPHIA Levothyroxine Sodium (Levothyroxine Sodium 112 Mcg Tablet) 112 mcg G-TUBE DAILY@0600 [facility] Last Admin: 12/22/23 06:03 Dose: 112 mcg Documented By: ESTELA Nicotine (Nicotine 7 Mg Patch.Td24) 7 mg TRANSDERMA Q24H PRN PRN Reason: Smoking Cessation Perphenazine (Perphenazine 8 Mg Tablet) 8 mg G-TUBE BID [facility] Last Admin: 12/22/23 08:38 Dose: 8 mg Documented By: SOPHIA Prednisone (Prednisone 20 Mg Tablet) 40 mg G-TUBE DAILY [facility] Last Admin: 12/22/23 08:39 Dose: 40 mg Documented By: SOPHIA Senna (Sennosides 8.6 Mg Tablet) 17.2 mg G-TUBE DAILY PRN PRN Reason: Constipation Sodium Chloride (0.9 % Sodium Chloride Flush 3 Ml Syringe) 3 ml IVFLUSH QSHIFT [facility] Last Admin: 12/22/23 08:40 Dose: Not Given Documented By: SOPHIA Non-Admin Reason: IV Running Labs 12/17/23 06:00 12/22/23 06:21 Labs: Laboratory Results - last 24 hr 12/22/23 06:21 Hold Purple Top SEE NOTE Anion Gap 15 Estim Creat Clear Calc 19.5 Estimated GFR 26 Random Glucose 123 H Calcium 8.9 Microbiology Microbiology Results: Microbiology 12/19/23 16:54 Urine Culture - Final Urine Catheterized - [place] Catheter Providencia stuartii Enterococcus faecalis Assessment and Plan (1) Renal artery stenosis: Status: Acute (2) Hydronephrosis determined by ultrasound: Status: Acute (3) Acute metabolic encephalopathy: Status: Acute (4) Acute renal failure: Status: Acute (5) Acute hypernatremia: Status: Acute Plan A 73 years old male with PMH of TBI, AAA s/p elective repair, COPD on prn home O2, hypothyroidism, HTN, HLD, BPH, and paranoid schizophrenia who presents with altered mentation and sodim level of 171. Acute hypernatremia complicated by acute metabolic encephalopathy due to volume depletion, patient is malnourished on tube feeds Mentation improving to baseline Sodium to 146 , restart D5W follow BMP adjust the tube feeds with more water content 300 q4 Acute kidney injury secondary to Lt renal artery stenosis and bilateral Hydronephrosis Creatinine at 2.5 Closely monitor I's and O's CT abd]\pelvis showing bilateral hydronephrosis Nephrology following Urology to do Cystoscopy and place stents tom[place] NPO post midnight Discuss with Vascular and IR re possible stenosis , will hold on any procedures during this admission follow BMP UTI growing 2 bacterias in urine; Provedenxia and Enterococcus Start Augmentin and Ceftriaxone ID eval COPD not in exacerbation Hypertension monitor Paranoid schizophrenia Home medications restarted DVT PPx Lovenox The patient needs overnight hospital stay for Hypernatremia management and hydronephrosis causing KELLY 2/2 obstruction pending clinical improvement and Urology procedure Quality Stroke Does the patient have a stroke diagnosis?: No VTE Prior VTE?: No VTE Risk Level:: Medical - low VTE Device Contraindication: N/A - Device Ordered VTE Drug Contraindication: N/A - Med Ordered
[2023-12-22] MEDS: Amoxicillin/Potassium Clav 250 MG TABLET PO (12:01)
[2023-12-22] MEDS: cefTRIAXone sodium 1 GM in 0.9 % Sodium Chloride 50 ML IV (12:01)
[2023-12-22] MEDS: Doxazosin Mesylate 2 MG TABLET 4 MG G-TUBE (20:09)
[2023-12-22] MEDS: 0.9 % Sodium Chloride Flush 3 ML SYRINGE IVFLUSH (20:11)
[2023-12-23] VITALS (13 sets, daily range): BP systolic 114–145; BP diastolic 69–93; PULSE 77–95; RESP 14–20; TEMP 35.9–36.8; O2SAT 95–100; BMI 22.1
[2023-12-23] MEDS: Amoxicillin/Potassium Clav 250 MG TABLET G-TUBE (00:52)
[2023-12-23] MEDS: Levothyroxine Sodium 112 MCG TABLET G-TUBE (05:58)
[2023-12-23 06:59] LABS: PLT CLUMP 1; Red Cell Distribution Width 14.8 % (11.0-16.0)
[2023-12-23 07:01] LABS: Hematocrit 30.3 % (42.0-52.0); Hemoglobin 9.4 g/dl (14.0-18.0); Mean Corpuscular Hemoglobin 26.7 pg (27.0-33.0); Mean Corpuscular Volume 86.1 fL (80.0-98.0); Mean Platelet Volume 11.9 fL (9.4-12.4); Red Blood Count 3.52 X10*6/uL (4.60-5.80)
[2023-12-23 07:07] LABS: Anion Gap 12 (12-20); Blood Urea Nitrogen 65 mg/dL (9-16); Calcium 9.3 mg/dL (8.4-10.2); Carbon Dioxide 23 mmol/L (22-29); Chloride 114 mmol/L (96-108); Creatinine Clr Calc Pharmacy 24.5; Estimated Glomerular Filt Rate 28; Glucose Random 76 mg/dL (60-115); Platelet Count 138 X10*3/uL (160-400); Potassium 4.6 mmol/L (3.3-5.1); Sodium 144 mmol/L (135-145); White Blood Count 9.8 X10*3/uL (4.8-10.8)
[2023-12-23] MEDS: 0.9 % Sodium Chloride Flush 3 ML SYRINGE IVFLUSH (09:38)
[2023-12-23] MEDS: cefTRIAXone sodium 1 GM in 0.9 % Sodium Chloride 50 ML IV (09:49)
[2023-12-23] MEDS: Dextrose 5 % 1,000 ML 80 ML IVCONT ×2 (10:48→23:03)
--- NOTE | 2023-12-23 10:56 | MHC.CM.PN ---
Pt is not yet medically ready for DC. He is scheduled to have a cystoscpoy today. DC plan is return to [facility]. CM to follow and assist with DC plan.
--- NOTE | 2023-12-23 11:25 | HO.PM.IMPN ---
Subjective Subjective Date of Service: 12/23/23 Interval History: Seen and evaluated this morning Encephalopathy improved back to baseline Facial rash resolving Sodium to 144 Cr stable at almost 2.3 Plan for Cystoscopy today Review of Systems Review of Systems: Yes all other systems are reviewed and are negative Physical Exam Vital Signs: Vital Signs: Last Vital Signs Temp 98.2 F 12/23/23 07:17 Pulse 85 12/23/23 07:17 Resp 16 12/23/23 07:17 BP 129/78 12/23/23 07:17 Pulse Ox 97 12/23/23 07:17 O2 Del Method Room Air 12/23/23 07:17 BMI result Body Mass Index 22.1 Const: Other: Constitutional : interactive , not in distress Cardiovascular : no JVP, no lower extremity edema Respiratory : bilateral chest movement, not in resp distress Gastrointestinal: soft, lax, Non tender, G-tube in place Skin : Warm, Dry, facial and generalized body rash resembling macules Neurological : alert, interactive , moves all extremities, speech fluent but not coherent sometimes Objective Data Active Medications Acetaminophen (Acetaminophen 325 Mg Tablet) 650 mg G-TUBE Q6H PRN PRN Reason: Fever Or Pain Albuterol Sulfate (Albuterol Sulfate 90 Mcg 8 Gm Inhaler) 2 puff INHALE Q4H PRN PRN Reason: shortness of breath or wheezing Amoxicillin/Clavulanate Potassium (Amoxicillin/Potassium Clav 250 Mg Tablet) 250 mg G-TUBE Q12H [facility] Last Admin: 12/23/23 00:52 Dose: 250 mg Documented By: QASIM Artificial Tears (Artificial Tears 15 Ml Drops) 2 drop EYE-BOTH Q4H PRN PRN Reason: Dry Eyes Atorvastatin Calcium (Atorvastatin Calcium 20 Mg Tablet) 20 mg G-TUBE DAILY [facility] Last Admin: 12/23/23 10:12 Dose: Not Given Documented By: IVETTE Non-Admin Reason: NPO Bisacodyl (Bisacodyl 10 Mg Supp.Rect) 10 mg [place] DAILY PRN PRN Reason: Constipation Diphenhydramine HCl (Diphenhydramine Hcl 50 Mg/Ml Vial) 25 mg IVPUSH Q6H PRN PRN Reason: Allergic Symptoms Doxazosin Mesylate (Doxazosin Mesylate 2 Mg Tablet) 4 mg G-TUBE BEDTIME [facility] Last Admin: 12/22/23 20:09 Dose: 4 mg Documented By: QASIM Enoxaparin Sodium (Enoxaparin Sodium 30 Mg/0.3 Ml Syringe) 30 mg SUBCUT Q24H [facility] Last Admin: 12/21/23 17:15 Dose: 30 mg Documented By: SOPHIA Dextrose (D5w) 1,000 mls @ 80 mls/hr IVCONT .[id number] [facility] Last Admin: 12/23/23 10:48 Dose: 80 mls/hr Documented By: IVETTE Ceftriaxone Sodium 1 gm/ (Sodium Chloride) 50 mls @ 100 mls/hr IV Q24H [facility] Last Infusion: 12/23/23 10:34 Dose: Infused Documented By: IVETTE Lactulose (Lactulose 20 Gm/30 Ml Solution) 10 gm G-TUBE BID [facility] Last Admin: 12/23/23 10:12 Dose: Not Given Documented By: IVETTE Non-Admin Reason: NPO Levothyroxine Sodium (Levothyroxine Sodium 112 Mcg Tablet) 112 mcg G-TUBE DAILY@0600 [facility] Last Admin: 12/23/23 05:58 Dose: 112 mcg Documented By: QASIM Nicotine (Nicotine 7 Mg Patch.Td24) 7 mg TRANSDERMA Q24H PRN PRN Reason: Smoking Cessation Perphenazine (Perphenazine 8 Mg Tablet) 8 mg G-TUBE BID [facility] Last Admin: 12/23/23 10:12 Dose: Not Given Documented By: IVETTE Non-Admin Reason: NPO Prednisone (Prednisone 20 Mg Tablet) 40 mg G-TUBE DAILY [facility] Last Admin: 12/23/23 10:12 Dose: Not Given Documented By: IVETTE Non-Admin Reason: NPO Senna (Sennosides 8.6 Mg Tablet) 17.2 mg G-TUBE DAILY PRN PRN Reason: Constipation Sodium Chloride (0.9 % Sodium Chloride Flush 3 Ml Syringe) 3 ml IVFLUSH QSHIFT [facility] Last Admin: 12/23/23 09:38 Dose: 3 ml Documented By: TAE Labs 12/23/23 06:26 12/23/23 06:26 Labs: Laboratory Results - last 24 hr 12/23/23 06:26 MCV 86.1 MCH 26.7 L MCHC 31.0 RDW 14.8 Plt Count 138 L D MPV 11.9 Absolute Nucleated RBC 0.000 Nucleated RBC % (auto) 0.0 Anion Gap 12 Estim Creat Clear Calc 24.5 Estimated GFR 28 Random Glucose 76 Calcium 9.3 Microbiology Microbiology Results: Microbiology 12/19/23 16:54 Urine Culture - Final Urine Catheterized - [place] Catheter Providencia stuartii Enterococcus faecalis Assessment and Plan (1) Renal artery stenosis: Status: Acute (2) Hydronephrosis determined by ultrasound: Status: Acute (3) Acute metabolic encephalopathy: Status: Acute (4) Acute renal failure: Status: Acute (5) Acute hypernatremia: Status: Acute Plan A 73 years old male with PMH of TBI, AAA s/p elective repair, COPD on prn home O2, hypothyroidism, HTN, HLD, BPH, and paranoid schizophrenia who presents with altered mentation and sodim level of 171. Acute hypernatremia complicated by acute metabolic encephalopathy due to volume depletion, patient is malnourished on tube feeds Mentation improving to baseline Sodium to 144 on D5W follow BMP adjust the tube feeds with more water content 300 q4 Acute kidney injury secondary to Lt renal artery stenosis and bilateral Hydronephrosis Creatinine at 2.3 Closely monitor I's and O's CT abd\pelvis showing bilateral hydronephrosis Nephrology following Urology to do Cystoscopy and place stents later today NPO for the procedure then restart feeding tube diet Discuss with Vascular and IR re possible stenosis , will hold on any procedures during this admission follow BMP UTI growing 2 bacterias in urine; Provedenxia and Enterococcus Start Augmentin and Ceftriaxone ID eval COPD not in exacerbation Hypertension monitor Paranoid schizophrenia Home medications restarted DVT PPx Lovenox The patient needs overnight hospital stay for Hypernatremia management and hydronephrosis causing KELLY 2/2 obstruction pending clinical improvement and Urology procedure Quality Stroke Does the patient have a stroke diagnosis?: No VTE Prior VTE?: No VTE Risk Level:: Medical - low VTE Device Contraindication: N/A - Device Ordered VTE Drug Contraindication: N/A - Med Ordered
--- NOTE | 2023-12-23 12:08 | MHC.CLN ---
F/U REVIEWED LABS SERUM SODIUM WNL TF CURRENTLY ON HOLD R/T PROCEDURE WHEN TF TO RESUME; RECOMMEND TF JEVITY 1.0 AT MAX GOAL RATE 60ML/HR WITH 300ML FREE WATER FLUSHES Q 6 HRS PROVIDES 1526KCALS (29KCALS/KG), 64G PROTEIN (1.2G/KG), 2402ML FREE WATER FROM FORMULA (45ML/KG) MONITOR TOLERANCE AND LYTES
--- NOTE | 2023-12-23 12:21 | P.PNNP_ITS ---
Subjective Subjective Date of Service: 12/23/23 Interval history: Seen and evaluated this morning ; Encephalopathy improved back to baseline; Cr stable at almost 2.3; for Cystoscopy today Physical Exam 2 Vital Signs: Vital Signs: Last Vital Signs Temp 97.6 F 12/23/23 11:24 Pulse 83 12/23/23 11:24 Resp 16 12/23/23 11:24 BP 118/78 12/23/23 11:24 Pulse Ox 96 12/23/23 11:24 O2 Del Method Room Air 12/23/23 11:24 BMI result Body Mass Index 22.1 Const: General: no acute distress Neck: Neck: Yes supple Resp: Auscultation: diminished lung sounds Cardio: Rate: regular rate GI: Palpation (GI): Soft to palpation Neuro: General: moves all extremities Objective Data Labs 12/23/23 06:26 12/23/23 06:26 Labs: Laboratory Results - last 24 hr 12/23/23 06:26 WBC 9.8 RBC 3.52 L D Hgb 9.4 L D Hct 30.3 L D MCV 86.1 MCH 26.7 L MCHC 31.0 RDW 14.8 Plt Count 138 L D MPV 11.9 Absolute Nucleated RBC 0.000 Nucleated RBC % (auto) 0.0 Sodium 144 Potassium 4.6 Chloride 114 H Carbon Dioxide 23 Anion Gap 12 BUN 65 H Creatinine 2.28 H Estim Creat Clear Calc 24.5 Estimated GFR 28 Random Glucose 76 Calcium 9.3 Microbiology Microbiology Results: Microbiology 12/19/23 16:54 Urine Catheterized - [place] Catheter Urine Culture - Final Providencia stuartii Enterococcus faecalis Procedures Date of Service Date of Service: 12/23/23 Assessment & Plan Assessment and plan (1) Acute renal failure: Status: Acute (2) Renal artery stenosis: Status: Acute (3) Hydronephrosis determined by ultrasound: Status: Acute Plan Acute kidney injury due to compromised renal perfusion Has CKD stage III at baseline; hypernatremia resolved Imaging showed Lt renal artery stenosis and Rt Hydronephrosis Creatinine currently stable; urology taking him to cysto/stenting today vascular surgeon seen patient Continue with current supportive care for now Progress Note: Quality Stroke Does the patient have a stroke diagnosis?: No
--- NOTE | 2023-12-23 16:15 | P.CNID_ITS ---
History of Present Illness Data of Consult Service Date: 12/23/23 Requesting physician: Joshua Nova Primary Care Provider: Jeffrey Delatorre DO HPI Reason for consult: hydroureteronephrosis He presents with weakness and encephalopathy. He has no fever or chills He has providencia and enterococcus. Review of Systems 2 Review of Systems: Yes Unobtainable due to mental condition PMFSH Past Medical History Medical History AAA (abdominal aortic aneurysm) without rupture Hyponatremia Acute UTI Obstructed, uropathy Acute on chronic kidney failure Bladder mass Acute renal failure Pulmonary nodules COPD (chronic obstructive pulmonary disease) Encounter for screening colonoscopy Lung mass Swallowing problem Pulmonary emphysema COVID-19 vaccine series completed History of COVID-19 Resides in jail facility History of falling Personal history of traumatic brain injury Other specified intracranial injury without loss of consciousness, subsequent encounter Paralytic gait Benign prostatic hyperplasia without lower urinary tract symptoms Pain in left hip Primary generalized (osteo)arthritis Constipation, unspecified Impulse disorder, unspecified Trichotillomania Alcohol dependence, uncomplicated Hyperlipidemia, unspecified Hypothyroidism, unspecified Weakness Unspecified lack of coordination Muscle weakness (generalized) Age-related nuclear cataract, bilateral Unspecified abnormalities of gait and mobility Personal history of COVID-19 Repeated falls Lefort i fracture, initial encounter for closed fracture Unsteadiness on feet Other abnormalities of gait and mobility Dysphagia, oropharyngeal phase Paranoid schizophrenia Family History Family History Unknown No problems noted. Family history: reviewed and not pertinent Surgical History Surgical History Status post percutaneous abdominal aortic aneurysm (AAA) repair Status post AAA (abdominal aortic aneurysm) repair History of facial surgery Social History Social History Household Members: Other Housing: Senior Living Housing Other:: [facility] Are you a primary body care manager to a significant other at home: No Do you presently have visiting nurse or other home services: Yes Unable to assess alcohol history related to: Unknown Comment: 1:1 sitter Patient Tobacco Use Status: Tobacco use Unknown Tobacco use type: Cigarette Cigarettes Per Day: 4 Years Smoked: 57 Second Hand Smoke Exposure: No Advance Directives: Yes Advance Directives on File: Yes Advance Directives Date on File: 12/05/22 Do you have a plan to hurt others: No Plan service: No Current occupational status: disabled Meds Allergies Allergy/AdvReac Type Severity Reaction Status Date / Time cefpodoxime Allergy Intermediate Rash Verified 02/28/24 08:19 lactose-reduced food Allergy Unknown Unknown Verified 02/28/24 08:19 [From Jevity] Active Medications: Current Medications Acetaminophen (Acetaminophen 325 Mg Tablet) 650 mg G-TUBE Q6H PRN PRN Reason: Fever Or Pain Albuterol Sulfate (Albuterol Sulfate 90 Mcg 8 Gm Inhaler) 2 puff INHALE Q4H PRN PRN Reason: shortness of breath or wheezing Amoxicillin/Clavulanate Potassium (Amoxicillin/Potassium Clav 250 Mg Tablet) 250 mg G-TUBE Q12H [facility] Last Admin: 12/23/23 12:18 Dose: Not Given Artificial Tears (Artificial Tears 15 Ml Drops) 2 drop EYE-BOTH Q4H PRN PRN Reason: Dry Eyes Atorvastatin Calcium (Atorvastatin Calcium 20 Mg Tablet) 20 mg G-TUBE DAILY [facility] Last Admin: 12/23/23 10:12 Dose: Not Given Bisacodyl (Bisacodyl 10 Mg Supp.Rect) 10 mg FL DAILY PRN PRN Reason: Constipation Diphenhydramine HCl (Diphenhydramine Hcl 50 Mg/Ml Vial) 25 mg IVPUSH Q6H PRN PRN Reason: Allergic Symptoms Doxazosin Mesylate (Doxazosin Mesylate 2 Mg Tablet) 4 mg G-TUBE BEDTIME [facility] Last Admin: 12/22/23 20:09 Dose: 4 mg Enoxaparin Sodium (Enoxaparin Sodium 30 Mg/0.3 Ml Syringe) 30 mg SUBCUT Q24H [facility] Last Admin: 12/21/23 17:15 Dose: 30 mg Dextrose (D5w) 1,000 mls @ 80 mls/hr IVCONT .[id number] [facility] Last Admin: 12/23/23 10:48 Dose: 80 mls/hr Ceftriaxone Sodium 1 gm/ (Sodium Chloride) 50 mls @ 100 mls/hr IV Q24H [facility] Last Infusion: 12/23/23 10:34 Dose: Infused Lactulose (Lactulose 20 Gm/30 Ml Solution) 10 gm G-TUBE BID [facility] Last Admin: 12/23/23 10:12 Dose: Not Given Levothyroxine Sodium (Levothyroxine Sodium 112 Mcg Tablet) 112 mcg G-TUBE DAILY@0600 [facility] Last Admin: 12/23/23 05:58 Dose: 112 mcg Nicotine (Nicotine 7 Mg Patch.Td24) 7 mg TRANSDERMA Q24H PRN PRN Reason: Smoking Cessation Perphenazine (Perphenazine 8 Mg Tablet) 8 mg G-TUBE BID [facility] Last Admin: 12/23/23 10:12 Dose: Not Given Prednisone (Prednisone 20 Mg Tablet) 40 mg G-TUBE DAILY [facility] [place] Last Admin: 12/23/23 10:12 Dose: Not Given Senna (Sennosides 8.6 Mg Tablet) 17.2 mg G-TUBE DAILY PRN PRN Reason: Constipation Sodium Chloride (0.9 % Sodium Chloride Flush 3 Ml Syringe) 3 ml IVFLUSH QSHIFT [facility] [place] Last Admin: 12/23/23 16:06 Dose: Not Given Home Medications ?Medication ?Instructions ?Recorded ?Confirmed ?Last Taken ?Type bisacodyl 10 mg rectal suppository 10 mg FL DAILY PRN Constipation 09/20/22 02/19/24 Unknown History (Dulcolax (bisacodyl)) sodium phosphates 19 gram-7 118 ml FL DAILY PRN Constipation 09/20/22 02/19/24 Unknown History gram/118 mL enema (Fleet Enema) lactulose 10 gram/15 mL oral 15 ml feeding tube BID 09/26/22 02/19/24 Unknown History solution levothyroxine 112 mcg tablet 112 mcg feeding tube DAILY@0600 09/26/22 02/19/24 Unknown History simvastatin 40 mg tablet 40 mg feeding tube BEDTIME 09/26/22 02/19/24 Unknown History polyvinyl alcohol 1.4 % eye drops 1 drp ophthalmic (eye) Q4H PRN Dry 12/05/22 02/19/24 Unknown History (Artificial Tears (polyvinyl Eyes alcohol)) sennosides 8.6 mg tablet (senna) 17.2 mg feeding tube DAILY PRN 12/05/22 02/19/24 Unknown History Constipation diazepam 2 mg tablet 3 mg feeding tube BID 10/03/23 02/19/24 Unknown History albuterol sulfate 90 mcg/actuation 2 puff inhalation Q4H PRN 10/13/23 02/19/24 Unknown History aerosol inhaler shortness of breath or wheezing bethanechol chloride 50 mg tablet 50 mg feeding tube BID 10/13/23 02/19/24 Unknown History perphenazine 8 mg tablet 8 mg feeding tube BID 10/13/23 02/19/24 Unknown History terazosin 5 mg capsule 5 mg feeding tube BEDTIME 10/13/23 02/19/24 Unknown History acetaminophen 325 mg tablet 650 mg feeding tube Q6H PRN Fever 12/16/23 02/19/24 Unknown History Or Pain midodrine 5 mg tablet 5 mg PO BID PRN Hypotension 02/19/24 02/19/24 Unknown History Physical Exam 2 Vital Signs: Vital Signs: Last Vital Signs Temp 97 F 12/23/23 15:09 Pulse 94 12/23/23 15:09 Resp 16 12/23/23 15:09 BP 138/81 12/23/23 15:09 Pulse Ox 97 12/23/23 15:09 O2 Del Method Room Air 12/23/23 15:09 BMI result Body Mass Index 22.1 Const: General: cooperative HEENT: Head: Yes normal to inspection Face and sinus: Yes normal facial exam Mouth: Normal oral and palatal mucosa present Teeth and gingiva: d entition normal Eyes: General: appearance normal, both eyes and all related structures P upils: Equal, round and reactive pupils present Resp: Effort & Inspection: normal respiratory effort Cardio: Rate: regular rate Rhythm: regular rhythm GI: Palpation (GI): Soft to palpation and nontender : General: Yes no CVA tenderness Back/Spine/Pelvis: Back: no CVA tenderness Skin: General skin exam: no rashes or lesions noted Neuro: Other: encephalopathic Cranial nerves: Yes Equal, round and reactive pupils present Extrem: General: Yes normal to inspection Results Labs 12/26/23 07:18 12/28/23 07:12 Labs: Short CBC 12/23/23 Range/Units 06:26 WBC 9.8 (4.8-10.8) X10*3/uL Hgb 9.4 L D (14.0-18.0) g/dl Hct 30.3 L D (42.0-52.0) % Plt Count 138 L D (160-400) X10*3/uL BMP 12/23/23 06:26 Sodium 144 Potassium 4.6 Chloride 114 H Carbon Dioxide 23 BUN 65 H Creatinine 2.28 H Calcium 9.3 Microbiology Microbiology Results: Microbiology 12/19/23 16:54 Urine Catheterized - [place] Catheter Urine Culture - Final Providencia stuartii Enterococcus faecalis Assessment and Plan (1) Hydronephrosis determined by ultrasound: Status: Acute (2) Acute metabolic encephalopathy: Status: Resolved Plan He has hydroureteronephrosis and two urinary organisms as well as tumor concern would continue Ceftriaxone and possible Levaquin and Ceftin outpatient 14 d total.
--- NOTE | 2023-12-23 16:44 | P.CONAN_ITS ---
[facility] Active Problems Active Problems: All Active Problems (Updated 12/20/23 @ 12:30 by Dale Kay MD) Renal artery stenosis (Acute) Hydronephrosis determined by ultrasound (Acute) Acute metabolic encephalopathy (Acute) Acute renal failure (Acute) Acute hypernatremia (Acute) Influenza (Acute) Status post percutaneous abdominal aortic aneurysm (AAA) repair (Acute) Encounter for screening colonoscopy (Acute) Urinary incontinence (Acute) AAA (abdominal aortic aneurysm) without rupture (Acute) Preoperative cardiovascular examination (Acute) COPD (chronic obstructive pulmonary disease) (Acute) Encounter for preoperative pulmonary examination (Acute) Pulmonary nodules (Acute) Incomplete bladder emptying (Acute) Renal cyst (Acute) Bladder wall thickening (Acute) Past Medical History Medical History Lung mass Swallowing problem Pulmonary emphysema COVID-19 vaccine series completed History of COVID-19 Resides in prison facility History of falling Personal history of traumatic brain injury Other specified intracranial injury without loss of consciousness, subsequent encounter Paralytic gait Benign prostatic hyperplasia without lower urinary tract symptoms Pain in left hip Primary generalized (osteo)arthritis Constipation, unspecified Impulse disorder, unspecified Trichotillomania Alcohol dependence, uncomplicated Hyperlipidemia, unspecified Hypothyroidism, unspecified Weakness Unspecified lack of coordination Muscle weakness (generalized) Age-related nuclear cataract, bilateral Unspecified abnormalities of gait and mobility Personal history of COVID-19 Repeated falls [place] i fracture, initial encounter for closed fracture Unsteadiness on feet Other abnormalities of gait and mobility Dysphagia, oropharyngeal phase Paranoid schizophrenia Family History Family History Unknown No problems noted. 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 If so, by whom?: No Do you feel safe in your current relationship?: Yes Is there a partner from a previous relationship who is making you feel unsafe now?: No Are you made to feel afraid or neglected: No Advance Directives: Yes Advance Directives on File: Yes Advance Directives Date on File: 12/05/22 Do you have a plan to hurt others: No Plan Recently lost weight without trying: Unsure Nutrition Risks: Difficulty swallowing and Receiving home tube feeding or CPN service: No Current occupational status: disabled Meds Allergies Allergy/AdvReac Type Severity Reaction Status Date / Time cefpodoxime Allergy Intermediate Rash Verified 12/16/23 09:25 Active Medications: Current Medications Acetaminophen (Acetaminophen 325 Mg Tablet) 650 mg G-TUBE Q6H PRN PRN Reason: Fever Or Pain Albuterol Sulfate (Albuterol Sulfate 90 Mcg 8 Gm Inhaler) 2 puff INHALE Q4H PRN PRN Reason: shortness of breath or wheezing Amoxicillin/Clavulanate Potassium (Amoxicillin/Potassium Clav 250 Mg Tablet) 250 mg G-TUBE Q12H [facility] Last Admin: 12/23/23 12:18 Dose: Not Given Artificial Tears (Artificial Tears 15 Ml Drops) 2 drop EYE-BOTH Q4H PRN PRN Reason: Dry Eyes Atorvastatin Calcium (Atorvastatin Calcium 20 Mg Tablet) 20 mg G-TUBE DAILY [facility] Last Admin: 12/23/23 10:12 Dose: Not Given Bisacodyl (Bisacodyl 10 Mg Supp.Rect) 10 mg RI DAILY PRN PRN Reason: Constipation Diphenhydramine HCl (Diphenhydramine Hcl 50 Mg/Ml Vial) 25 mg IVPUSH Q6H PRN PRN Reason: Allergic Symptoms Doxazosin Mesylate (Doxazosin Mesylate 2 Mg Tablet) 4 mg G-TUBE BEDTIME [facility] Last Admin: 12/22/23 20:09 Dose: 4 mg Enoxaparin Sodium (Enoxaparin Sodium 30 Mg/0.3 Ml Syringe) 30 mg SUBCUT Q24H [facility] Last Admin: 12/21/23 17:15 Dose: 30 mg Dextrose (D5w) 1,000 mls @ 80 mls/hr IVCONT .[id number] [facility] Last Admin: 12/23/23 10:48 Dose: 80 mls/hr Ceftriaxone Sodium 1 gm/ (Sodium Chloride) 50 mls @ 100 mls/hr IV Q24H [facility] Last Infusion: 12/23/23 10:34 Dose: Infused Lactulose (Lactulose 20 Gm/30 Ml Solution) 10 gm G-TUBE BID [facility] Last Admin: 12/23/23 10:12 Dose: Not Given Levothyroxine Sodium (Levothyroxine Sodium 112 Mcg Tablet) 112 mcg G-TUBE DAILY@0600 [facility] Last Admin: 12/23/23 05:58 Dose: 112 mcg Nicotine (Nicotine 7 Mg Patch.Td24) 7 mg TRANSDERMA Q24H PRN PRN Reason: Smoking Cessation Perphenazine (Perphenazine 8 Mg Tablet) 8 mg G-TUBE BID [facility] Last Admin: 12/23/23 10:12 Dose: Not Given Prednisone (Prednisone 20 Mg Tablet) 40 mg G-TUBE DAILY [facility] Last Admin: 12/23/23 10:12 Dose: Not Given Senna (Sennosides 8.6 Mg Tablet) 17.2 mg G-TUBE DAILY PRN PRN Reason: Constipation Sodium Chloride (0.9 % Sodium Chloride Flush 3 Ml Syringe) 3 ml IVFLUSH QSHIFT [facility] Last Admin: 12/23/23 16:06 Dose: Not Given Home Medications ?Medication ?Instructions ?Recorded ?Confirmed ?Last Taken ?Type bisacodyl 10 mg rectal suppository 10 mg RI DAILY PRN Constipation 09/20/22 12/16/23 Unknown History (Dulcolax (bisacodyl)) sodium phosphates 19 gram-7 118 ml RI DAILY PRN Constipation 09/20/22 12/16/23 Unknown History gram/118 mL enema (Fleet Enema) lactulose 10 gram/15 mL oral 15 ml feeding tube BID 09/26/22 12/16/23 Unknown History solution levothyroxine 112 mcg tablet 112 mcg feeding tube DAILY@0600 09/26/22 12/16/23 Unknown History simvastatin 40 mg tablet 40 mg feeding tube BEDTIME 09/26/22 12/16/23 Unknown History nicotine 7 mg/24 hr daily 1 patch transdermal Q24H PRN 05/03/23 05/13/24 Unknown History transdermal patch Smoking Cessation polyvinyl alcohol 1.4 % eye drops 1 drp ophthalmic (eye) Q4H PRN Dry 12/05/22 12/16/23 Unknown History (Artificial Tears (polyvinyl Eyes alcohol)) sennosides 8.6 mg tablet (senna) 17.2 mg feeding tube DAILY PRN 12/05/22 12/16/23 Unknown History Constipation diazepam 2 mg tablet 3 mg feeding tube BID 10/03/23 12/16/23 Unknown History albuterol sulfate 90 mcg/actuation 2 puff inhalation Q4H PRN 10/13/23 12/16/23 Unknown History aerosol inhaler shortness of breath or wheezing bethanechol chloride 50 mg tablet 50 mg feeding tube BID 10/13/23 12/16/23 Unknown History perphenazine 8 mg tablet 8 mg feeding tube BID 10/13/23 12/16/23 Unknown History terazosin 5 mg capsule 5 mg feeding tube BEDTIME 10/13/23 12/16/23 Unknown History acetaminophen 325 mg tablet 650 mg feeding tube Q6H PRN Fever 12/16/23 12/16/23 Unknown History Or Pain Exam Height,Weight and Vital Signs: Height 5 ft 5 in Weight 60.2 kg Last Vital Signs Temp 97 F 12/23/23 15:09 Pulse 94 12/23/23 15:09 Resp 16 12/23/23 15:09 BP 138/81 12/23/23 15:09 Pulse Ox 97 12/23/23 15:09 O2 Del Method Room Air 12/23/23 15:09 Pertinent Lab Results Pertinent Lab Results: Laboratory Tests 12/16/23 12/16/23 12/16/23 10:34 14:58 16:23 WBC 11.2 H RBC 4.79 D Hgb 12.9 L D Hct 44.4 D MCV 92.7 MCH 26.9 L MCHC 29.1 L RDW 15.7 Plt Count 234 MPV 10.3 Immature Gran % (Auto) 0.4 Neut % (Auto) 83.7 H Lymph % (Auto) 9.7 L [place] % (Auto) 5.5 Eos % (Auto) 0.2 Baso % (Auto) 0.5 Lymph # (Auto) 1.1 L [place] # (Auto) 0.6 Eos # (Auto) 0.0 Baso # (Auto) 0.1 Abs Immat Gran (auto) 0.05 H Absolute Neuts (auto) 9.4 H Absolute Nucleated RBC 0.000 Nucleated RBC % (auto) 0.0 Hold Purple Top Sodium 173 H* D 167 H* 167 H* Potassium 4.7 D 4.0 4.1 Chloride 124 H 125 H 125 H Carbon Dioxide 34 H 33 H 31 H Anion Gap 20 13 15 BUN 97 H 92 H 91 H Creatinine 2.66 H 2.54 H 2.54 H Estim Creat Clear Calc 16.2 16.9 16.9 Estimated GFR 24 25 25 Random Glucose 71 118 H 75 Osmolality 384 H Calcium 9.8 9.2 D 9.3 Total Bilirubin 0.3 AST 27 ALT 23 Alkaline Phosphatase 131 H Troponin I High Sens 3.2 Total Protein 7.8 Albumin 3.6 Urine Color Urine Appearance Urine pH Ur Specific [place] Urine Protein Urine Glucose (UA) Urine Ketones Urine Blood Urine Nitrite Ur Leukocyte Esterase Urine RBC Urine WBC Ur Squamous Epith Cells Urine Bacteria Hyaline Casts 12/16/23 12/17/23 12/17/23 19:55 00:50 06:00 WBC 8.1 RBC 4.51 L Hgb 12.0 L Hct 41.0 L MCV 90.9 MCH 26.6 L MCHC 29.3 L RDW 15.7 Plt Count 201 MPV 10.5 Immature Gran % (Auto) Neut % (Auto) Lymph % (Auto) [place] % (Auto) Eos % (Auto) Baso % (Auto) Lymph # (Auto) [place] # (Auto) Eos # (Auto) Baso # (Auto) Abs Immat Gran (auto) Absolute Neuts (auto) Absolute Nucleated RBC 0.000 Nucleated RBC % (auto) 0.0 Hold Purple Top Sodium 164 H* 165 H* 166 H* Potassium 4.2 4.1 4.5 Chloride 122 H 123 H 124 H Carbon Dioxide 26 27 27 Anion Gap 20 19 20 BUN 92 H 91 H 98 H Creatinine 2.44 H 2.57 H 2.77 H Estim Creat Clear Calc 19.7 18.7 17.4 Estimated GFR 26 25 23 Random Glucose 141 H 78 78 Osmolality Calcium 9.1 9.3 9.4 Total Bilirubin AST ALT Alkaline Phosphatase Troponin I High Sens Total Protein Albumin Urine Color Urine Appearance Urine pH Ur Specific [place] Urine Protein Urine Glucose (UA) Urine Ketones Urine Blood Urine Nitrite Ur Leukocyte Esterase Urine RBC Urine WBC Ur Squamous Epith Cells Urine Bacteria Hyaline Casts 12/17/23 12/17/23 12/17/23 11:55 15:57 19:45 WBC RBC Hgb Hct MCV MCH MCHC RDW Plt Count MPV Immature Gran % (Auto) Neut % (Auto) Lymph % (Auto) [place] % (Auto) Eos % (Auto) Baso % (Auto) Lymph # (Auto) [place] # (Auto) Eos # (Auto) Baso # (Auto) Abs Immat Gran (auto) Absolute Neuts (auto) Absolute Nucleated RBC Nucleated RBC % (auto) Hold Purple Top Sodium 162 H* 159 H 158 H Potassium 4.1 4.0 4.3 Chloride 121 H 119 H 116 H Carbon Dioxide 28 26 30 H Anion Gap 17 18 16 BUN 98 H 97 H 97 H Creatinine 2.93 H 2.83 H 2.92 H Estim Creat Clear Calc 17.1 17.7 17.1 Estimated GFR 21 22 21 Random Glucose 109 117 H 89 Osmolality Calcium 9.1 9.2 9.4 Total Bilirubin AST ALT Alkaline Phosphatase Troponin I High Sens Total Protein Albumin Urine Color Urine Appearance Urine pH Ur Specific [place] Urine Protein Urine Glucose (UA) Urine Ketones Urine Blood Urine Nitrite Ur Leukocyte Esterase Urine RBC Urine WBC Ur Squamous Epith Cells Urine Bacteria Hyaline Casts 12/18/23 12/18/23 12/18/23 00:02 04:00 12:18 WBC RBC Hgb Hct MCV MCH MCHC RDW Plt Count MPV Immature Gran % (Auto) Neut % (Auto) Lymph % (Auto) [place] % (Auto) Eos % (Auto) Baso % (Auto) Lymph # (Auto) [place] # (Auto) Eos # (Auto) Baso # (Auto) Abs Immat Gran (auto) Absolute Neuts (auto) Absolute Nucleated RBC Nucleated RBC % (auto) Hold Purple Top Sodium 155 H 153 H 150 H Potassium 3.8 3.4 4.0 Chloride 116 H 113 H 112 H Carbon Dioxide 25 26 27 Anion Gap 18 17 15 BUN 97 H 94 H 94 H Creatinine 3.13 H 2.99 H 2.91 H Estim Creat Clear Calc 16.0 16.7 16.5 Estimated GFR 20 21 21 Random Glucose 129 H 126 H 98 Osmolality Calcium 9.1 8.8 9.0 Total Bilirubin AST ALT Alkaline Phosphatase Troponin I High Sens Total Protein Albumin Urine Color Urine Appearance Urine pH Ur Specific [place] Urine Protein Urine Glucose (UA) Urine Ketones Urine Blood Urine Nitrite Ur Leukocyte Esterase Urine RBC Urine WBC Ur Squamous Epith Cells Urine Bacteria Hyaline Casts 12/18/23 12/18/23 12/19/23 16:24 19:58 00:39 WBC RBC Hgb Hct MCV MCH MCHC RDW Plt Count MPV Immature Gran % (Auto) Neut % (Auto) Lymph % (Auto) [place] % (Auto) Eos % (Auto) Baso % (Auto) Lymph # (Auto) [place] # (Auto) Eos # (Auto) Baso # (Auto) Abs Immat Gran (auto) Absolute Neuts (auto) Absolute Nucleated RBC Nucleated RBC % (auto) Hold Purple Top Sodium 150 H 149 H 149 H Potassium 3.9 4.2 3.8 Chloride 113 H 113 H 111 H Carbon Dioxide 28 26 26 Anion Gap 13 14 16 BUN 93 H 91 H 91 H Creatinine 2.91 H 2.91 H 2.85 H Estim Creat Clear Calc 16.5 16.5 16.9 Estimated GFR 21 21 22 Random Glucose 127 H 107 141 H Osmolality Calcium 9.0 9.0 8.9 Total Bilirubin AST ALT Alkaline Phosphatase Troponin I High Sens Total Protein Albumin Urine Color Urine Appearance Urine pH Ur Specific [place] Urine Protein Urine Glucose (UA) Urine Ketones Urine Blood Urine Nitrite Ur Leukocyte Esterase Urine RBC Urine WBC Ur Squamous Epith Cells Urine Bacteria Hyaline Casts 12/19/23 12/19/23 12/19/23 06:42 12:00 16:54 WBC RBC Hgb Hct MCV MCH MCHC RDW Plt Count MPV Immature Gran % (Auto) Neut % (Auto) Lymph % (Auto) [place] % (Auto) Eos % (Auto) Baso % (Auto) Lymph # (Auto) [place] # (Auto) Eos # (Auto) Baso # (Auto) Abs Immat Gran (auto) Absolute Neuts (auto) Absolute Nucleated RBC Nucleated RBC % (auto) Hold Purple Top Sodium 146 H 145 Potassium 3.7 3.8 Chloride 111 H 110 H Carbon Dioxide 25 26 Anion Gap 14 13 BUN 87 H 87 H Creatinine 2.72 H 2.80 H Estim Creat Clear Calc 17.3 16.8 Estimated GFR 23 22 Random Glucose 117 H 110 Osmolality Calcium 8.7 8.6 Total Bilirubin AST ALT Alkaline Phosphatase Troponin I High Sens Total Protein Albumin Urine Color Yellow Urine Appearance Turbid Urine pH 6.5 Ur Specific [place] 1.010 Urine Protein 100 (2+) H Urine Glucose (UA) Negative Urine Ketones Negative Urine Blood Large (3+) H Urine Nitrite Negative Ur Leukocyte Esterase Large (3+) H Urine RBC 3-5 H Urine WBC >50 H Ur Squamous Epith Cells 0-2 Urine Bacteria 4+ Hyaline Casts 0-2 12/20/23 12/21/23 12/22/23 06:01 06:33 06:21 WBC RBC Hgb Hct MCV MCH MCHC RDW Plt Count MPV Immature Gran % (Auto) Neut % (Auto) Lymph % (Auto) [place] % (Auto) Eos % (Auto) Baso % (Auto) Lymph # (Auto) [place] # (Auto) Eos # (Auto) Baso # (Auto) Abs Immat Gran (auto) Absolute Neuts (auto) Absolute Nucleated RBC Nucleated RBC % (auto) Hold Purple Top SEE NOTE SEE NOTE SEE NOTE Sodium 140 144 146 H Potassium 4.0 4.0 4.4 Chloride 106 111 H 114 H Carbon Dioxide 25 24 21 L Anion Gap 13 13 15 BUN 84 H 76 H 76 H Creatinine 2.59 H 2.65 H 2.47 H Estim Creat Clear Calc 18.6 18.2 19.5 Estimated GFR 24 24 26 Random Glucose 121 H 114 123 H Osmolality Calcium 8.6 8.6 8.9 Total Bilirubin AST ALT Alkaline Phosphatase Troponin I High Sens Total Protein Albumin Urine Color Urine Appearance Urine pH Ur Specific [place] Urine Protein Urine Glucose (UA) Urine Ketones Urine Blood Urine Nitrite Ur Leukocyte Esterase Urine RBC Urine WBC Ur Squamous Epith Cells Urine Bacteria Hyaline Casts 12/23/23 06:26 WBC 9.8 RBC 3.52 L D Hgb 9.4 L D Hct 30.3 L D MCV 86.1 MCH 26.7 L MCHC 31.0 RDW 14.8 Plt Count 138 L D MPV 11.9 Immature Gran % (Auto) Neut % (Auto) Lymph % (Auto) [place] % (Auto) Eos % (Auto) Baso % (Auto) Lymph # (Auto) [place] # (Auto) Eos # (Auto) Baso # (Auto) Abs Immat Gran (auto) Absolute Neuts (auto) Absolute Nucleated RBC 0.000 Nucleated RBC % (auto) 0.0 Hold Purple Top Sodium 144 Potassium 4.6 Chloride 114 H Carbon Dioxide 23 Anion Gap 12 BUN 65 H Creatinine 2.28 H Estim Creat Clear Calc 24.5 Estimated GFR 28 Random Glucose 76 Osmolality Calcium 9.3 Total Bilirubin AST ALT Alkaline Phosphatase Troponin I High Sens Total Protein Albumin Urine Color Urine Appearance Urine pH Ur Specific [place] Urine Protein Urine Glucose (UA) Urine Ketones Urine Blood Urine Nitrite Ur Leukocyte Esterase Urine RBC Urine WBC Ur Squamous Epith Cells Urine Bacteria Hyaline Casts Airway Mallampati Class: III TM Dist: >3cm Neck ROM: Limited Loose/Missing/Broken Teeth: Yes, Upper and Lower Assessment and Plan Assessment Anesthesia Assessment: Anesthesia Plan Discussed and Chart Reviewed Final Anesthetic Review Family History of Problems with Anesthesia: No History of Problems with Anesthesia: No NPO: Yes ASA Class: III Final Preanesthetic Review: No Changes in Pt Med Stat, Meds/Allgs Chart Reviewed, Consent Obtained/Reviewed and Anes Risks/Benef Reviewed Patient Risk: Intermediate Procedure Risk: Low Anesthetic Plan Anesthetic Plan: GA Disposition: Standard PACU
--- NOTE | 2023-12-23 17:20 | HO.WOUND ---
Wound Consult: Initial Attempted 73yr old?[place] [facility] [place] - See progress notes and H&P for detailed history.? Wound consult placed for Rash and bruising.? Arrival to bedside patient was off unit - will attempt assessment at future date and or time.
--- NOTE | 2023-12-23 17:59 | MHC.SHP ---
Pre-Procedural Eval Section A - 24 Hr Update-Section A only Date of Service: 12/23/23 The patient is an INPATIENT: Yes Changes since office visit: No Cold of Flu in the past 2 weeks, No New Medical Problems, No Changes in Medication and No Patient answered all questions The patient has been examined within 24 hours of the surgical procedure. The History & Physical has been completed within 30 days and I have reviewed it.: Yes Section B - Complete if H&P > 30 days Chief Complaint: Hypernatremia Details of Present Illness: Cystoscopy, bladder biopsy, bilateral retrograde with bilateral stents Allergies: Allergies Allergy/AdvReac Type Severity Reaction Status Date / Time cefpodoxime Allergy Intermediate Rash Verified 12/16/23 09:25 Plan I have reviewed the history and physical and performed a pertinent physical examination on my patient. No changes have occurred unless specified. Time Spent With Patient Time: Total time managing care of this patient today ____ minutes.
[2023-12-23] MEDS: Acetaminophen 325 MG TABLET 650 MG PO (22:11)
[2023-12-23] MEDS: Doxazosin Mesylate 2 MG TABLET 4 MG G-TUBE (22:12)
[2023-12-23] MEDS: Perphenazine 8 MG TABLET G-TUBE (22:13)
[2023-12-23] MEDS: Lactulose 20 GM/30 ML SOLUTION 10 GM G-TUBE (22:13)
[2023-12-24] VITALS (8 sets, daily range): BP systolic 103–129; BP diastolic 65–85; PULSE 85–95; RESP 18–20; TEMP 36–36.7; O2SAT 95–99; BMI 22.0
[2023-12-24] MEDS: Amoxicillin/Potassium Clav 250 MG TABLET G-TUBE ×3 (01:40→23:38)
[2023-12-24] MEDS: Levothyroxine Sodium 112 MCG TABLET G-TUBE (05:48)
[2023-12-24 07:48] LABS: Hematocrit 30.3 % (42.0-52.0); Hemoglobin 9.3 g/dl (14.0-18.0); Mean Corpuscular HGB Conc 30.7 g/dl (31.0-36.0); Mean Corpuscular Hemoglobin 27.4 pg (27.0-33.0); Mean Corpuscular Volume 89.1 fL (80.0-98.0); Mean Platelet Volume 11.3 fL (9.4-12.4); Platelet Count 124 X10*3/uL (160-400); Red Cell Distribution Width 14.8 % (11.0-16.0); White Blood Count 8.1 X10*3/uL (4.8-10.8)
[2023-12-24 08:16] LABS: Anion Gap 15 (12-20); Blood Urea Nitrogen 68 mg/dL (9-16); Calcium 9.1 mg/dL (8.4-10.2); Carbon Dioxide 23 mmol/L (22-29); Chloride 111 mmol/L (96-108); Creatinine Clr Calc Pharmacy 21.7; Estimated Glomerular Filt Rate 25; Glucose Random 184 mg/dL (60-115); Sodium 144 mmol/L (135-145)
[2023-12-24] MEDS: Atorvastatin Calcium 20 MG TABLET G-TUBE (09:22)
[2023-12-24] MEDS: predniSONE 20 MG TABLET 40 MG G-TUBE (09:22)
[2023-12-24] MEDS: Lactulose 20 GM/30 ML SOLUTION 10 GM G-TUBE ×2 (09:22→23:38)
[2023-12-24] MEDS: Perphenazine 8 MG TABLET G-TUBE ×2 (09:22→23:38)
[2023-12-24] MEDS: cefTRIAXone sodium 1 GM in 0.9 % Sodium Chloride 50 ML IV (09:42)
--- NOTE | 2023-12-24 10:05 | P.PNNP_ITS ---
Subjective Subjective Date of Service: 12/24/23 Interval history: Events noted. Underwent cystoscopy yesterday Physical Exam 2 Vital Signs: Vital Signs: Last Vital Signs Temp 96.8 F 12/24/23 07:14 Pulse 86 12/24/23 07:14 Resp 20 12/24/23 07:14 BP 114/72 12/24/23 07:14 Pulse Ox 98 12/24/23 07:14 O2 Del Method Room Air 12/24/23 07:14 O2 Flow Rate 2 12/23/23 20:01 BMI result Body Mass Index 22.0 Const: General: ill appearing Neck: Neck: Yes supple Resp: Auscultation: clear to auscultation bilaterally Cardio: Palpation: no palpable S3 Heart sounds: no rubs GI: Palpation (GI): Soft to palpation Auscultation: normal bowel sounds Neuro: Motor exam (neuro): no asterixis Objective Data Labs 12/24/23 07:08 12/24/23 07:08 Labs: Laboratory Results - last 24 hr 12/24/23 07:08 WBC 8.1 RBC 3.40 L Hgb 9.3 L Hct 30.3 L MCV 89.1 MCH 27.4 MCHC 30.7 L RDW 14.8 Plt Count 124 L MPV 11.3 Absolute Nucleated RBC 0.000 Nucleated RBC % (auto) 0.0 Sodium 144 Potassium 5.0 Chloride 111 H Carbon Dioxide 23 Anion Gap 15 BUN 68 H Creatinine 2.57 H Estim Creat Clear Calc 21.7 Estimated GFR 25 Random Glucose 184 H Calcium 9.1 Microbiology Microbiology Results: Microbiology 12/19/23 16:54 Urine Catheterized - [place] Catheter Urine Culture - Final Providencia stuartii Enterococcus faecalis Procedures Date of Service Date of Service: 12/24/23 Assessment & Plan Assessment and plan (1) Hydronephrosis determined by ultrasound: Status: Acute (2) Acute metabolic encephalopathy: Status: Acute Plan Acute kidney injury due to obstructive uropathy There was a component of hypoperfusion as well Has CKD stage III at baseline; hypernatremia resolved Imaging showed Lt renal artery stenosis and Hydronephrosis No significant change in serum creatinine. vascular surgeon seen patient Management of obstructive uropathy per Urology No indication for dialysis Keep intake more than output Continue with current supportive care for now Time Spent With Patient Time: Total time managing care of this patient today ____ minutes. Progress Note: Quality Stroke Does the patient have a stroke diagnosis?: No
--- NOTE | 2023-12-24 11:35 | HO.PM.IMPN ---
Subjective Subjective Date of Service: 12/24/23 Interval History: Seen and evaluated this morning Encephalopathy improved back to baseline Facial rash resolving Cr mildly worse at 2.6 Found to have large bladder mass on Cystoscopy Review of Systems Review of Systems: Yes all other systems are reviewed and are negative Physical Exam Vital Signs: Vital Signs: Last Vital Signs Temp 97.0 F 12/24/23 11:00 Pulse 85 12/24/23 11:00 Resp 20 12/24/23 11:00 BP 103/65 12/24/23 11:00 Pulse Ox 99 12/24/23 11:00 O2 Del Method Room Air 12/24/23 11:00 O2 Flow Rate 2 12/23/23 20:01 BMI result Body Mass Index 22.0 Const: Other: Constitutional : interactive , not in distress Cardiovascular : no JVP, no lower extremity edema Respiratory : bilateral chest movement, not in resp distress Gastrointestinal: soft, lax, Non tender, G-tube in place Skin : Warm, Dry, facial and generalized body rash resembling macules, Holland in place with clear urine Neurological : alert, interactive , moves all extremities, speech fluent but not coherent sometimes Objective Data Active Medications Acetaminophen (Acetaminophen 325 Mg Tablet) 650 mg G-TUBE Q6H PRN PRN Reason: Fever Or Pain Albuterol Sulfate (Albuterol Sulfate 90 Mcg 8 Gm Inhaler) 2 puff INHALE Q4H PRN PRN Reason: shortness of breath or wheezing Amoxicillin/Clavulanate Potassium (Amoxicillin/Potassium Clav 250 Mg Tablet) 250 mg G-TUBE Q12H [facility] Last Admin: 12/24/23 11:20 Dose: 250 mg Documented By: RICK Artificial Tears (Artificial Tears 15 Ml Drops) 2 drop EYE-BOTH Q4H PRN PRN Reason: Dry Eyes Atorvastatin Calcium (Atorvastatin Calcium 20 Mg Tablet) 20 mg G-TUBE DAILY [facility] Last Admin: 12/24/23 09:22 Dose: 20 mg Documented By: RICK Bisacodyl (Bisacodyl 10 Mg Supp.Rect) 10 mg IN DAILY PRN PRN Reason: Constipation Diphenhydramine HCl (Diphenhydramine Hcl 50 Mg/Ml Vial) 25 mg IVPUSH Q6H PRN PRN Reason: Allergic Symptoms Doxazosin Mesylate (Doxazosin Mesylate 2 Mg Tablet) 4 mg G-TUBE BEDTIME [facility] Last Admin: 12/23/23 22:12 Dose: 4 mg Documented By: WYATT Enoxaparin Sodium (Enoxaparin Sodium 30 Mg/0.3 Ml Syringe) 30 mg SUBCUT Q24H [facility] Last Admin: 12/21/23 17:15 Dose: 30 mg Documented By: SOPHIA Ceftriaxone Sodium 1 gm/ (Sodium Chloride) 50 mls @ 100 mls/hr IV Q24H [facility] Last Infusion: 12/24/23 10:22 Dose: Infused Documented By: RICK Lactulose (Lactulose 20 Gm/30 Ml Solution) 10 gm G-TUBE BID [facility] Last Admin: 12/24/23 09:22 Dose: 10 gm Documented By: RICK Levothyroxine Sodium (Levothyroxine Sodium 112 Mcg Tablet) 112 mcg G-TUBE DAILY@0600 [facility] Last Admin: 12/24/23 05:48 Dose: 112 mcg Documented By: WYATT Nicotine (Nicotine 7 Mg Patch.Td24) 7 mg TRANSDERMA Q24H PRN PRN Reason: Smoking Cessation Perphenazine (Perphenazine 8 Mg Tablet) 8 mg G-TUBE BID [facility] Last Admin: 12/24/23 09:22 Dose: 8 mg Documented By: RICK Prednisone (Prednisone 20 Mg Tablet) 40 mg G-TUBE DAILY [facility] Last Admin: 12/24/23 09:22 Dose: 40 mg Documented By: RICK Senna (Sennosides 8.6 Mg Tablet) 17.2 mg G-TUBE DAILY PRN PRN Reason: Constipation Sodium Chloride (0.9 % Sodium Chloride Flush 3 Ml Syringe) 3 ml IVFLUSH QSHIFT [facility] Last Admin: 12/24/23 08:33 Dose: Not Given Documented By: RICK Non-Admin Reason: IV Running Labs 12/24/23 07:08 12/24/23 07:08 Labs: Laboratory Results - last 24 hr 12/24/23 07:08 MCV 89.1 MCH 27.4 MCHC 30.7 L RDW 14.8 Plt Count 124 L MPV 11.3 Absolute Nucleated RBC 0.000 Nucleated RBC % (auto) 0.0 Anion Gap 15 Estim Creat Clear Calc 21.7 Estimated GFR 25 Random Glucose 184 H Calcium 9.1 Assessment and Plan (1) Renal artery stenosis: Status: Acute (2) Hydronephrosis determined by ultrasound: Status: Acute (3) Acute metabolic encephalopathy: Status: Acute (4) Acute renal failure: Status: Acute (5) Acute hypernatremia: Status: Acute Plan A 73 years old male with PMH of TBI, AAA s/p elective repair, COPD on prn home O2, hypothyroidism, HTN, HLD, BPH, and paranoid schizophrenia who presents with altered mentation and sodim level of 171. Acute hypernatremia complicated by acute metabolic encephalopathy due to volume depletion, patient is malnourished on tube feeds Mentation improving to baseline Sodium to 144 on D5W follow BMP adjust the tube feeds with more water content 300 q4 Acute kidney injury secondary to Lt renal artery stenosis and bilateral Hydronephrosis Discuss with Vascular and IR re Renal artery stenosis , will hold on any procedures during this admission Creatinine at 2.6 Closely monitor I's and O's CT abd\pelvis showing bilateral hydronephrosis Nephrology following Urology did Cystoscopy showing large bladder mass and could not place stent, suggest PCN on the right side IR nephrostomy ordered follow BMP UTI growing 2 bacterias in urine; Provedenxia and Enterococcus Start Augmentin and Ceftriaxone ID input appreciated, levaquin and Ceftin on DC COPD not in exacerbation Hypertension monitor Paranoid schizophrenia Home medications restarted DVT PPx Lovenox The patient needs overnight hospital stay for Hypernatremia management and hydronephrosis causing KELLY 2/2 obstruction pending clinical improvement and Urology procedure Quality Stroke Does the patient have a stroke diagnosis?: No VTE Prior VTE?: No VTE Risk Level:: Medical - low VTE Device Contraindication: N/A - Device Ordered VTE Drug Contraindication: N/A - Med Ordered
[2023-12-24 13:07] LABS: INTERNATIONAL NORM RATIO 0.9 (0.9-1.1); Prothrombin Time 10.9 SEC (11.1-13.3)
--- NOTE | 2023-12-24 13:56 | HO.WOUND ---
Wound Consult: Initial 73yr old? admitted to [facility] [place] on 12/16/23 - See progress notes and H&P for detailed history.? Wound consult placed for rash to back and chest.? Patient agreeable to assessment and photo documentation.? Back and chest assessed along with legs and abdomen rash not noted to areas other than upper back and chest at this time. Etiology remains unknown - defer to providers and dermatology outpt. No open wounds noted no topical interventions needed at this time. Provider to consider topical steroid vs topical antifungal treatment. Psoriasis and or skin dermatitis not listed in patient history. TT to provider.
--- NOTE | 2023-12-24 14:51 | HO.POSTANES ---
Post Anesthesia Evaluation Post Anesthesia Evaluation Date of Service: 12/23/23 Vital Signs: Vital Signs Temp Pulse Resp BP Pulse Ox O2 Del Method 12/24/23 11:00 97.0 F 85 20 103/65 99 Room Air 12/24/23 07:14 96.8 F 86 20 114/72 98 Room Air Anesthesia: General Mental Status: Awake Pain Control: Satisfactory Nausea/Vomiting: None Hydration: Adequate Anesthesia-Related Issues: No Anes. Related Issues
--- NOTE | 2023-12-24 15:01 | MHC.CM.PN ---
EMR reviewed and per MD rounds, pt is not medically cleared for discharge due to continued management of hypernatremia and hydronephrosis with pending nephrostomy tomorrow 12/24.
[2023-12-24] MEDS: Enoxaparin Sodium 30 MG/0.3 ML SYRINGE SUBCUT (15:23)
[2023-12-24] MEDS: 0.9 % Sodium Chloride Flush 3 ML SYRINGE IVFLUSH ×2 (15:23→23:52)
[2023-12-24] MEDS: Doxazosin Mesylate 2 MG TABLET 4 MG G-TUBE (23:39)
[2023-12-25 03:48] VITALS: BP 115/71; PULSE 100; RESP 20; TEMP 36.6; O2SAT 97
[2023-12-25 05:46] VITALS: BMI 23.6
[2023-12-25] MEDS: Levothyroxine Sodium 112 MCG TABLET G-TUBE (06:19)
[2023-12-25 06:53] LABS: Anion Gap 13 (12-20); Blood Urea Nitrogen 64 mg/dL (9-16); Calcium 8.8 mg/dL (8.4-10.2); Carbon Dioxide 23 mmol/L (22-29); Chloride 113 mmol/L (96-108); Estimated Glomerular Filt Rate 27; Glucose Random 73 mg/dL (60-115); Potassium 4.5 mmol/L (3.3-5.1); Sodium 144 mmol/L (135-145)
[2023-12-25 08:00] VITALS: BP 132/83; PULSE 102; RESP 20; TEMP 36.4; O2SAT 95
--- NOTE | 2023-12-25 09:37 | PC.NURSE ---
Addendum entered by Kelly Mccluer 12/25/23 10:50: IR nurse Eliza Merida notified this RN that case is cancelled for today and moved to tomorrow. Per Eliza, tube feedings may be turned back on. Xochitl floor nurse made aware via tiger. Addendum entered by Kelly Mcclure 12/25/23 09:39: Xochitl notified at 0925 am. Original Note: Floor RN Xochitl notified by this RN to stop tube feeds stat per Radiology.
--- NOTE | 2023-12-25 09:53 | P.PNIM_ITS ---
Subjective Subjective Date of Service: 12/25/23 Interval History: Seen and evaluated this morning Facial rash resolving Cr stable at 2.4 Urine clearing up on CBI Found to have large bladder mass on Cystoscopy, plan for Nephrostomy tube today Review of Systems Review of Systems: Yes all other systems are reviewed and are negative Physical Exam 2 Vital Signs: Vital Signs: Last Vital Signs Temp 97.6 F 12/25/23 08:00 Pulse 102 H 12/25/23 08:00 Resp 20 12/25/23 08:00 BP 132/83 12/25/23 08:00 Pulse Ox 95 12/25/23 08:00 O2 Del Method Room Air 12/25/23 08:00 O2 Flow Rate 2 12/23/23 20:01 BMI result Body Mass Index 23.6 Const: Other: Constitutional : interactive , not in distress Cardiovascular : no JVP, no lower extremity edema Respiratory : bilateral chest movement, not in resp distress Gastrointestinal: soft, lax, Non tender, G-tube in place Skin : Warm, Dry, resolving facial and generalized body rash resembling macules, Holland in place with clear urine while on CBI Neurological : alert, interactive , moves all extremities, speech fluent but not coherent sometimes Objective Data Active Medications Acetaminophen (Acetaminophen 325 Mg Tablet) 650 mg G-TUBE Q6H PRN PRN Reason: Fever Or Pain Albuterol Sulfate (Albuterol Sulfate 90 Mcg 8 Gm Inhaler) 2 puff INHALE Q4H PRN PRN Reason: shortness of breath or wheezing Amoxicillin/Clavulanate Potassium (Amoxicillin/Potassium Clav 250 Mg Tablet) 250 mg G-TUBE Q12H [facility] Last Admin: 12/24/23 23:38 Dose: 250 mg Documented By: THOMAS Artificial Tears (Artificial Tears 15 Ml Drops) 2 drop EYE-BOTH Q4H PRN PRN Reason: Dry Eyes Atorvastatin Calcium (Atorvastatin Calcium 20 Mg Tablet) 20 mg G-TUBE DAILY [facility] Last Admin: 12/24/23 09:22 Dose: 20 mg Documented By: RICK Bisacodyl (Bisacodyl 10 Mg Supp.Rect) 10 mg IN DAILY PRN PRN Reason: Constipation Diphenhydramine HCl (Diphenhydramine Hcl 50 Mg/Ml Vial) 25 mg IVPUSH Q6H PRN PRN Reason: Allergic Symptoms Doxazosin Mesylate (Doxazosin Mesylate 2 Mg Tablet) 4 mg G-TUBE BEDTIME [facility] Last Admin: 12/24/23 23:39 Dose: 4 mg Documented By: THOMAS Enoxaparin Sodium (Enoxaparin Sodium 30 Mg/0.3 Ml Syringe) 30 mg SUBCUT Q24H [facility] Last Admin: 12/24/23 15:23 Dose: 30 mg Documented By: RICK Ceftriaxone Sodium 1 gm/ (Sodium Chloride) 50 mls @ 100 mls/hr IV Q24H [facility] Last Infusion: 12/24/23 10:22 Dose: Infused Documented By: RICK Lactulose (Lactulose 20 Gm/30 Ml Solution) 10 gm G-TUBE BID [facility] Last Admin: 12/24/23 23:38 Dose: 10 gm Documented By: THOMAS Levothyroxine Sodium (Levothyroxine Sodium 112 Mcg Tablet) 112 mcg G-TUBE DAILY@0600 [facility] Last Admin: 12/25/23 06:19 Dose: 112 mcg Documented By: JORDI Nicotine (Nicotine 7 Mg Patch.Td24) 7 mg TRANSDERMA Q24H PRN PRN Reason: Smoking Cessation Perphenazine (Perphenazine 8 Mg Tablet) 8 mg G-TUBE BID [facility] Last Admin: 12/24/23 23:38 Dose: 8 mg Documented By: THOMAS Prednisone (Prednisone 20 Mg Tablet) 40 mg G-TUBE DAILY [facility] Last Admin: 12/24/23 09:22 Dose: 40 mg Documented By: RICK Senna (Sennosides 8.6 Mg Tablet) 17.2 mg G-TUBE DAILY PRN PRN Reason: Constipation Sodium Chloride (0.9 % Sodium Chloride Flush 3 Ml Syringe) 3 ml IVFLUSH QSHIFT [facility] Last Admin: 12/24/23 23:52 Dose: 3 ml Documented By: THOMAS Labs 12/24/23 07:08 12/25/23 06:00 Labs: Laboratory Results - last 24 hr 12/24/23 12/25/23 12:34 06:00 Hold Purple Top SEE NOTE PT 10.9 L INR 0.9 Anion Gap 13 Estim Creat Clear Calc 24.0 Estimated GFR 27 Random Glucose 73 Calcium 8.8 Assessment and Plan (1) Renal artery stenosis: Status: Acute (2) Hydronephrosis determined by ultrasound: Status: Acute (3) Acute metabolic encephalopathy: Status: Acute (4) Acute renal failure: Status: Acute (5) Acute hypernatremia: Status: Acute (6) Bladder mass: Status: Acute Plan A 73 years old male with PMH of TBI, AAA s/p elective repair, COPD on prn home O2, hypothyroidism, HTN, HLD, BPH, and paranoid schizophrenia who presents with altered mentation and sodim level of 171. Bladder mass with obstruction causing Hydronephrosis CT abd\pelvis showed bilateral hydronephrosis Urology did Cystoscopy showing large bladder mass and could not place stent, suggest PCN on the right side IR to place Nephrostomy tube right side Hematuria Post Cystoscopy on CBI hold Lovenox monitor response Urology following Acute hypernatremia complicated by acute metabolic encephalopathy due to volume depletion, patient is malnourished on tube feeds Mentation improving to baseline Sodium stable at 144 follow BMP adjusted the tube feeds with more water content 300 q4 Acute kidney injury secondary to Lt renal artery stenosis and bilateral Hydronephrosis Discuss with Vascular and IR re Renal artery stenosis , will hold on any procedures during this admission Creatinine at 2.4 Closely monitor I's and O's Nephrology following follow BMP UTI growing 2 bacterias in urine; Provedenxia and Enterococcus On Augmentin and Ceftriaxone ID input appreciated, levaquin and Ceftin on DC COPD not in exacerbation Hypertension monitor Paranoid schizophrenia Home medications restarted DVT PPx SCDs The patient needs overnight hospital stay for Hypernatremia management and hydronephrosis causing KELLY 2/2 obstruction pending clinical improvement and Urology procedure Quality Stroke Does the patient have a stroke diagnosis?: No VTE Prior VTE?: No VTE Risk Level:: Medical - low VTE Device Contraindication: N/A - Device Ordered VTE Drug Contraindication: N/A - Med Ordered
[2023-12-25] MEDS: Lactulose 20 GM/30 ML SOLUTION 10 GM G-TUBE (10:41)
[2023-12-25] MEDS: Atorvastatin Calcium 20 MG TABLET G-TUBE (10:41)
[2023-12-25] MEDS: cefTRIAXone sodium 1 GM in 0.9 % Sodium Chloride 50 ML IV (10:41)
[2023-12-25] MEDS: Amoxicillin/Potassium Clav 250 MG TABLET G-TUBE (10:41)
[2023-12-25] MEDS: Perphenazine 8 MG TABLET G-TUBE (10:41)
[2023-12-25] MEDS: predniSONE 20 MG TABLET 40 MG G-TUBE (10:44)
[2023-12-25 12:00] VITALS: BP 132/88; PULSE 99; RESP 20; TEMP 36.8; O2SAT 96
--- NOTE | 2023-12-25 13:21 | P.PNNP_ITS ---
Subjective Subjective Date of Service: 12/25/23 Interval history: Seen and evaluated this morning Facial rash resolving Cr stable at 2.4 Urine clearing up on CBI Found to have large bladder mass on Cystoscopy, plan for Nephrostomy tube today Physical Exam 2 Vital Signs: Vital Signs: Last Vital Signs Temp 98.2 F 12/25/23 12:00 Pulse 99 12/25/23 12:00 Resp 20 12/25/23 12:00 BP 132/88 12/25/23 12:00 Pulse Ox 96 12/25/23 12:00 O2 Del Method Room Air 12/25/23 12:00 O2 Flow Rate 2 12/23/23 20:01 BMI result Body Mass Index 23.6 Objective Data Labs 12/24/23 07:08 12/25/23 06:00 Labs: Laboratory Results - last 24 hr 12/25/23 12/25/23 06:00 09:23 Hold Purple Top SEE NOTE Sodium 144 Potassium 4.5 Chloride 113 H Carbon Dioxide 23 Anion Gap 13 BUN 64 H Creatinine 2.38 H Estim Creat Clear Calc 24.0 Estimated GFR 27 Random Glucose 73 Calcium 8.8 Blood Type A Negative Antibody Screen NEGATIVE Microbiology Microbiology Results: Microbiology 12/19/23 16:54 Urine Catheterized - Holland Catheter Urine Culture - Final Providencia stuartii Enterococcus faecalis Procedures Date of Service Date of Service: 12/25/23 Assessment & Plan Assessment and plan (1) Acute renal failure: Status: Acute Plan Acute kidney injury due to compromised renal perfusion/obstructive uropathy Has CKD stage III at baseline; hypernatremia resolved Imaging showed Lt renal artery stenosis and Rt Hydronephrosis Creatinine currently stable; vascular surgeon seen patient Bladder mass with obstruction causing Hydronephrosis CT abd\pelvis showed bilateral hydronephrosis Urology did Cystoscopy showing large bladder mass and could not place stent IR to place Nephrostomy tube right side Continue with current supportive care for now Progress Note: Quality Stroke Does the patient have a stroke diagnosis?: No
--- NOTE | 2023-12-25 13:52 | MHC.CM.PN ---
EMR reviewed and per MD rounds, pt is not medically cleared for discharge due to continued management of hypernatremia and hydronephrosis with pt receiving CBI and pending nephrostomy.
--- NOTE | 2023-12-25 13:58 | MHC.CLN ---
F/U PT IS CURRENTLY NPO PENDING PROCEDURE WHEN TF TO RESUME; RECOMMEND TF JEVITY 1.0 AT MAX GOAL RATE 60ML/HR WITH 300ML FREE WATER FLUSHES Q 6 HRS PROVIDES 1526KCALS (29KCALS/KG), 64G PROTEIN (1.2G/KG), 2402ML FREE WATER FROM FORMULA (45ML/KG) MONITOR TOLERANCE AND LYTES FOLLOWING WITH TEAM
[2023-12-25] MEDS: 0.9 % Sodium Chloride Flush 3 ML SYRINGE IVFLUSH (15:01)
[2023-12-25 15:11] VITALS: BP 127/86; PULSE 100; RESP 16; TEMP 36.3; O2SAT 98
[2023-12-25 16:00] VITALS: O2SAT 98
--- NOTE | 2023-12-25 19:46 | PC.NURSE ---
CBI paused at 11 AM per MD verbal order during morning rounds, after this RN shift 7pm no signs of clots, pale yellow color in Holland bag.
[2023-12-25 20:00] VITALS: BP 136/78; PULSE 99; RESP 19; TEMP 36.6; O2SAT 96
[2023-12-26] VITALS (11 sets, daily range): BP systolic 125–156; BP diastolic 74–96; PULSE 74–107; RESP 16–20; TEMP 36.1–37; O2SAT 96–99
[2023-12-26] MEDS: 0.9 % Sodium Chloride Flush 3 ML SYRINGE IVFLUSH ×3 (07:45→22:08)
[2023-12-26 08:11] LABS: Hematocrit 29.7 % (42.0-52.0); Mean Corpuscular HGB Conc 30.3 g/dl (31.0-36.0); Mean Corpuscular Hemoglobin 26.9 pg (27.0-33.0); Mean Corpuscular Volume 88.7 fL (80.0-98.0); Mean Platelet Volume 11.8 fL (9.4-12.4); Platelet Count 152 X10*3/uL (160-400); Red Blood Count 3.35 X10*6/uL (4.60-5.80); Red Cell Distribution Width 15.6 % (11.0-16.0); White Blood Count 8.8 X10*3/uL (4.8-10.8)
[2023-12-26 08:30] LABS: Anion Gap 13 (12-20); Blood Urea Nitrogen 68 mg/dL (9-16); Calcium 9.1 mg/dL (8.4-10.2); Carbon Dioxide 25 mmol/L (22-29); Chloride 118 mmol/L (96-108); Creatinine Clr Calc Pharmacy 21.2; Estimated Glomerular Filt Rate 23; Glucose Random 78 mg/dL (60-115); Potassium 4.5 mmol/L (3.3-5.1); Sodium 151 mmol/L (135-145)
[2023-12-26] MEDS: cefTRIAXone sodium 1 GM in 0.9 % Sodium Chloride 50 ML IV (11:18)
[2023-12-26] MEDS: Dextrose 5 % 1,000 ML 100 ML IVCONT (11:18)
--- NOTE | 2023-12-26 12:47 | HO.PM.IMPN ---
Subjective Subjective Date of Service: 12/26/23 Interval History: Seen and examined this morning Follow-up for bladder mass, hematuria, hydronephrosis Patient awake, alert, resting in bed comfortably with no specific complaints Review of Systems Review of Systems: Yes all other systems are reviewed and are negative Constitutional Constitutional: Denies fever(s) Gastrointestinal Gastrointestinal: Denies abdominal pain Physical Exam Vital Signs: Vital Signs: Last Vital Signs Temp 97.8 F 12/26/23 10:57 Pulse 85 12/26/23 10:57 Resp 20 12/26/23 10:57 BP 146/90 H 12/26/23 10:57 Pulse Ox 97 12/26/23 10:57 O2 Del Method Room Air 12/26/23 10:57 O2 Flow Rate 2 12/23/23 20:01 BMI result Body Mass Index 23.6 Const: General: cooperative, comfortable, no acute distress, alert and awake Nutritional Appearance: average body habitus Orientation/consciousness: oriented to person and oriented to place Resp: Effort & Inspection: normal respiratory effort, able to speak in complete sentences, no respiratory distress and no use of accessory muscles Cardio: Rate: regular rate GI: Other: feeding tube in place, no surrounding erythema : Other: Holland in place with clear output Neuro: General: oriented to person and oriented to place Extrem: General: Yes no pedal edema Objective Data Active Medications Acetaminophen (Acetaminophen 325 Mg Tablet) 650 mg G-TUBE Q6H PRN PRN Reason: Fever Or Pain Albuterol Sulfate (Albuterol Sulfate 90 Mcg 8 Gm Inhaler) 2 puff INHALE Q4H PRN PRN Reason: shortness of breath or wheezing Amoxicillin/Clavulanate Potassium (Amoxicillin/Potassium Clav 250 Mg Tablet) 250 mg G-TUBE Q12H [facility] Last Admin: 12/26/23 11:15 Dose: Not Given Documented By: MATHEW Non-Admin Reason: NPO Artificial Tears (Artificial Tears 15 Ml Drops) 2 drop EYE-BOTH Q4H PRN PRN Reason: Dry Eyes Atorvastatin Calcium (Atorvastatin Calcium 20 Mg Tablet) 20 mg G-TUBE DAILY [facility] Last Admin: 12/26/23 07:42 Dose: Not Given Documented By: MATHEW Non-Admin Reason: NPO Bisacodyl (Bisacodyl 10 Mg Supp.Rect) 10 mg LA DAILY PRN PRN Reason: Constipation Diphenhydramine HCl (Diphenhydramine Hcl 50 Mg/Ml Vial) 25 mg IVPUSH Q6H PRN PRN Reason: Allergic Symptoms Doxazosin Mesylate (Doxazosin Mesylate 2 Mg Tablet) 4 mg G-TUBE BEDTIME [facility] Last Admin: 12/25/23 22:01 Dose: Not Given Documented By: JOSH Non-Admin Reason: per Enoxaparin Sodium (Enoxaparin Sodium 30 Mg/0.3 Ml Syringe) 30 mg SUBCUT Q24H [facility] Last Admin: 12/24/23 15:23 Dose: 30 mg Documented By: RICK Ceftriaxone Sodium 1 gm/ (Sodium Chloride) 50 mls @ 100 mls/hr IV Q24H [facility] Last Infusion: 12/26/23 11:51 Dose: Infused Documented By: MATHEW Dextrose (D5w) 1,000 mls @ 100 mls/hr IVCONT .Q10H [facility] Last Admin: 12/26/23 11:18 Dose: 100 mls/hr Documented By: MATHEW Lactulose (Lactulose 20 Gm/30 Ml Solution) 10 gm G-TUBE BID [facility] Last Admin: 12/26/23 07:42 Dose: Not Given Documented By: MATHEW Non-Admin Reason: NPO Levothyroxine Sodium (Levothyroxine Sodium 112 Mcg Tablet) 112 mcg G-TUBE DAILY@0600 [facility] Last Admin: 12/26/23 05:27 Dose: Not Given Documented By: JOSH Non-Admin Reason: perMD Nicotine (Nicotine 7 Mg Patch.Td24) 7 mg TRANSDERMA Q24H PRN PRN Reason: Smoking Cessation Perphenazine (Perphenazine 8 Mg Tablet) 8 mg G-TUBE BID [facility] Last Admin: 12/26/23 07:42 Dose: Not Given Documented By: MATHEW Non-Admin Reason: NPO Prednisone (Prednisone 20 Mg Tablet) 40 mg G-TUBE DAILY [facility] Stop: 12/26/23 13:39 Last Admin: 12/26/23 07:43 Dose: Not Given Documented By: MATHEW Non-Admin Reason: NPO Senna (Sennosides 8.6 Mg Tablet) 17.2 mg G-TUBE DAILY PRN PRN Reason: Constipation Sodium Chloride (0.9 % Sodium Chloride Flush 3 Ml Syringe) 3 ml IVFLUSH QSHIFT [facility] Last Admin: 12/26/23 07:45 Dose: 3 ml Documented By: MATHEW Labs 12/26/23 07:18 12/26/23 07:18 Labs: Laboratory Results - last 24 hr 12/26/23 07:18 MCV 88.7 MCH 26.9 L MCHC 30.3 L RDW 15.6 Plt Count 152 L MPV 11.8 Absolute Nucleated RBC 0.000 Nucleated RBC % (auto) 0.0 Anion Gap 13 Estim Creat Clear Calc 21.2 Estimated GFR 23 Random Glucose 78 Calcium 9.1 Assessment and Plan (1) Bladder mass: Status: Acute (2) Renal artery stenosis: Status: Acute Plan A 73 years old male with PMH of TBI, AAA s/p elective repair, COPD on prn home O2, hypothyroidism, HTN, HLD, BPH, and paranoid schizophrenia who presents with altered mentation and sodium level of 171. Bladder mass with obstruction causing Hydronephrosis CT abd\pelvis showed bilateral hydronephrosis Urology did Cystoscopy showing large bladder mass and could not place stent, suggest PCN on the right side IR to place Nephrostomy tube right side today 12/25 Hematuria Post Cystoscopy on CBI hold Lovenox monitor response Urology following Acute hypernatremia complicated by acute metabolic encephalopathy due to volume depletion, patient is malnourished on tube feeds Mentation improving to baseline Sodium improved but now back up to 151 follow BMP adjusted the tube feeds with more water content 300 q4 Acute kidney injury secondary to Lt renal artery stenosis and bilateral Hydronephrosis Discuss with Vascular and IR re Renal artery stenosis , will hold on any procedures during this admission - outpatient follow-up with vascular surgery Creatinine at 2.6 Closely monitor I's and O's Nephrology following follow BMP UTI growing 2 bacterias in urine; Provedenxia and Enterococcus On Augmentin and Ceftriaxone ID input appreciated, levaquin and Ceftin on DC COPD not in exacerbation Hypertension monitor Paranoid schizophrenia Home medications restarted DVT PPx SCDs dispo - returned to [facility] The patient needs overnight hospital stay for Hypernatremia management and hydronephrosis causing KELLY 2/2 obstruction pending clinical improvement and Urology procedure Quality Stroke Does the patient have a stroke diagnosis?: No VTE Prior VTE?: No VTE Risk Level:: Medical - low VTE Device Contraindication: N/A - Device Ordered VTE Drug Contraindication: N/A - Med Ordered
--- NOTE | 2023-12-26 18:02 | PC.NURSE ---
I&O not correctly calculated after amount drained from CBI entered. Drained amounts were entered in computer as collected instead of totaling the sums and entering the amount instilled at the same time as the amount drained. I&O record corrected to reflect the proper amount of 400ml urine drained from bladder.
--- NOTE | 2023-12-26 19:43 | P.PNNP_ITS ---
Subjective Subjective Date of Service: 12/26/23 Interval history: Seen and examined this morning ; no specific complaints; for nephrostomy today Physical Exam 2 Vital Signs: Vital Signs: Last Vital Signs Temp 97.6 F 12/26/23 19:12 Pulse 84 12/26/23 19:12 Resp 18 12/26/23 19:12 BP 156/96 H 12/26/23 19:12 Pulse Ox 98 12/26/23 19:12 O2 Del Method Room Air 12/26/23 19:12 O2 Flow Rate 2 12/26/23 15:50 BMI result Body Mass Index 23.6 Const: General: no acute distress Eyes: EOM: EOMs intact bilaterally Neck: Neck: Yes supple Resp: Auscultation: diminished lung sounds Cardio: Rate: regular rate GI: Palpation (GI): Soft to palpation Neuro: General: moves all extremities Extrem: General: Yes no pedal edema Objective Data Labs 12/26/23 07:18 12/26/23 07:18 Labs: Laboratory Results - last 24 hr 12/26/23 07:18 WBC 8.8 RBC 3.35 L Hgb 9.0 L Hct 29.7 L MCV 88.7 MCH 26.9 L MCHC 30.3 L RDW 15.6 Plt Count 152 L MPV 11.8 Absolute Nucleated RBC 0.000 Nucleated RBC % (auto) 0.0 Sodium 151 H Potassium 4.5 Chloride 118 H Carbon Dioxide 25 Anion Gap 13 BUN 68 H Creatinine 2.69 H Estim Creat Clear Calc 21.2 Estimated GFR 23 Random Glucose 78 Calcium 9.1 Microbiology Microbiology Results: Microbiology 12/19/23 16:54 Urine Catheterized - Holland Catheter Urine Culture - Final Providencia stuartii Enterococcus faecalis Procedures Date of Service Date of Service: 12/26/23 Assessment & Plan Assessment and plan (1) Acute renal failure: Status: Acute Assessment and Plan: Acute kidney injury due to compromised renal perfusion/obstructive uropathy Has CKD stage III at baseline; hypernatremic- needs more free water Imaging showed Lt renal artery stenosis and Rt Hydronephrosis Creatinine marginally up; vascular surgeon seen patient Bladder mass with obstruction causing Hydronephrosis CT abd\pelvis showed bilateral hydronephrosis Urology did Cystoscopy showing large bladder mass and could not place stent IR to place Nephrostomy tube right side today Continue with current supportive care for now Time Spent With Patient Time: . Progress Note: Quality Stroke Does the patient have a stroke diagnosis?: No
[2023-12-26 20:30] LABS: Sodium 153 mmol/L (135-145)
--- NOTE | 2023-12-26 21:59 | PM.EVENT ---
Event Note Date of Service: 12/26/23 Event Note: Noted worsening hyponatremia. Ordered tube feeds with water bolus and increasing rate of D5W as per free water deficit calculation Time Spent With Patient Time: Total time managing care of this patient today ____ minutes.
[2023-12-26] MEDS: Dextrose 5 % 1,000 ML 130 ML IVCONT (22:04)
[2023-12-26] MEDS: Amoxicillin/Potassium Clav 250 MG TABLET G-TUBE (22:07)
[2023-12-26] MEDS: Doxazosin Mesylate 2 MG TABLET 4 MG G-TUBE (22:07)
[2023-12-26] MEDS: Lactulose 20 GM/30 ML SOLUTION 10 GM G-TUBE (22:07)
[2023-12-26] MEDS: Perphenazine 8 MG TABLET G-TUBE (22:07)
[2023-12-27] VITALS (8 sets, daily range): BP systolic 116–151; BP diastolic 54–85; PULSE 77–108; RESP 15–20; TEMP 36.4–37; O2SAT 97–99
[2023-12-27] MEDS: Dextrose 5 % 1,000 ML 130 ML IVCONT (02:53)
[2023-12-27] MEDS: Levothyroxine Sodium 112 MCG TABLET G-TUBE (06:44)
[2023-12-27 07:20] LABS: Anion Gap 12 (12-20); Blood Urea Nitrogen 65 mg/dL (9-16); Calcium 8.9 mg/dL (8.4-10.2); Carbon Dioxide 24 mmol/L (22-29); Chloride 114 mmol/L (96-108); Creatinine Clr Calc Pharmacy 21.8; Estimated Glomerular Filt Rate 24; Glucose Random 153 mg/dL (60-115); Potassium 4.1 mmol/L (3.3-5.1); Sodium 146 mmol/L (135-145)
--- NOTE | 2023-12-27 09:01 | P.PNNP_ITS ---
Subjective Subjective Date of Service: 12/27/23 Interval history: S/P nephrostomy yesterday. Serum Na better Physical Exam 2 Vital Signs: Vital Signs: Last Vital Signs Temp 97.8 F 12/27/23 07:13 Pulse 85 12/27/23 07:13 Resp 18 12/27/23 07:13 BP 126/77 12/27/23 07:13 Pulse Ox 97 12/27/23 07:13 O2 Del Method Room Air 12/27/23 07:13 O2 Flow Rate 2 12/26/23 15:50 BMI result Body Mass Index 23.6 Const: General: no acute distress Neck: Neck: Yes supple Resp: Auscultation: diminished lung sounds Cardio: Rate: regular rate GI: Palpation (GI): Soft to palpation Neuro: General: moves all extremities Objective Data Labs 12/26/23 07:18 12/27/23 06:37 Labs: Laboratory Results - last 24 hr 12/26/23 12/27/23 19:56 06:37 Sodium 153 H 146 H Potassium 4.1 Chloride 114 H Carbon Dioxide 24 Anion Gap 12 BUN 65 H Creatinine 2.62 H Estim Creat Clear Calc 21.8 Estimated GFR 24 Random Glucose 153 H Calcium 8.9 Microbiology Microbiology Results: Microbiology 12/19/23 16:54 Urine Catheterized - Holland Catheter Urine Culture - Final Providencia stuartii Enterococcus faecalis Procedures Date of Service Date of Service: 12/27/23 Assessment & Plan Assessment and plan (1) Acute renal failure: Status: Acute Plan Acute kidney injury due to compromised renal perfusion/obstructive uropathy Has CKD stage III at baseline; hypernatremic- improving with free water Imaging showed Lt renal artery stenosis and Rt Hydronephrosis Creatinine marginally up/ stable; vascular surgeon seen patient Bladder mass with obstruction causing Hydronephrosis CT abd\pelvis showed bilateral hydronephrosis Urology did Cystoscopy showing large bladder mass and could not place stent IR placed Nephrostomy tube right side yesterday Continue with current supportive care for now Progress Note: Quality Stroke Does the patient have a stroke diagnosis?: No
[2023-12-27] MEDS: Atorvastatin Calcium 20 MG TABLET G-TUBE (09:51)
[2023-12-27] MEDS: cefTRIAXone sodium 1 GM in 0.9 % Sodium Chloride 50 ML IV (09:51)
[2023-12-27] MEDS: Lactulose 20 GM/30 ML SOLUTION 10 GM G-TUBE ×2 (09:51→22:19)
[2023-12-27] MEDS: Perphenazine 8 MG TABLET G-TUBE ×2 (09:51→22:19)
[2023-12-27] MEDS: Dextrose 5 % 1,000 ML 100 ML IVCONT ×2 (09:52→22:25)
[2023-12-27] MEDS: 0.9 % Sodium Chloride Flush 3 ML SYRINGE IVFLUSH ×2 (09:52→15:39)
[2023-12-27] MEDS: Amoxicillin/Potassium Clav 250 MG TABLET G-TUBE ×2 (10:23→23:00)
--- NOTE | 2023-12-27 12:51 | P.PNIM_ITS ---
Subjective Subjective Date of Service: 12/27/23 Interval History: Seen and examined this morning Follow-up for obstructing bladder mass status post nephrostomy tube placement Review of Systems Review of Systems: Yes all other systems are reviewed and are negative Constitutional Constitutional: Denies chills and Denies fever(s) Physical Exam 2 Vital Signs: Vital Signs: Last Vital Signs Temp 97.8 F 12/27/23 11:03 Pulse 83 12/27/23 11:03 Resp 20 12/27/23 11:03 BP 134/80 12/27/23 11:03 Pulse Ox 97 12/27/23 11:03 O2 Del Method Room Air 12/27/23 11:03 O2 Flow Rate 2 12/26/23 15:50 BMI result Body Mass Index 23.6 Const: General: cooperative, comfortable, no acute distress, alert and awake Nutritional Appearance: average body habitus Orientation/consciousness: o riented to person and oriented to place Resp: Effort & Inspection: normal respiratory effort, able to speak in complete sentences, no respiratory distress and no use of accessory muscles Cardio: Rate: regular rate GI: Other: feeding tube in place, no surrounding erythema : Other: Holland in place with clear output, nephrostomy Neuro: General: oriented to person and oriented to place Extrem: General: Yes no pedal edema Objective Data Active Medications Acetaminophen (Acetaminophen 325 Mg Tablet) 650 mg G-TUBE Q6H PRN PRN Reason: Fever Or Pain Albuterol Sulfate (Albuterol Sulfate 90 Mcg 8 Gm Inhaler) 2 puff INHALE Q4H PRN PRN Reason: shortness of breath or wheezing Amoxicillin/Clavulanate Potassium (Amoxicillin/Potassium Clav 250 Mg Tablet) 250 mg G-TUBE Q12H [facility] Last Admin: 12/27/23 10:23 Dose: 250 mg Documented By: YOJANA Artificial Tears (Artificial Tears 15 Ml Drops) 2 drop EYE-BOTH Q4H PRN PRN Reason: Dry Eyes Atorvastatin Calcium (Atorvastatin Calcium 20 Mg Tablet) 20 mg G-TUBE DAILY [facility] Last Admin: 12/27/23 09:51 Dose: 20 mg Documented By: YOJANA Bisacodyl (Bisacodyl 10 Mg Supp.Rect) 10 mg [place] DAILY PRN PRN Reason: Constipation Diphenhydramine HCl (Diphenhydramine Hcl 50 Mg/Ml Vial) 25 mg IVPUSH Q6H PRN PRN Reason: Allergic Symptoms Doxazosin Mesylate (Doxazosin Mesylate 2 Mg Tablet) 4 mg G-TUBE BEDTIME [facility] Last Admin: 12/26/23 22:07 Dose: 4 mg Documented By: MAGNOLIA Enoxaparin Sodium (Enoxaparin Sodium 30 Mg/0.3 Ml Syringe) 30 mg SUBCUT Q24H [facility] Last Admin: 12/24/23 15:23 Dose: 30 mg Documented By: RICK Ceftriaxone Sodium 1 gm/ (Sodium Chloride) 50 mls @ 100 mls/hr IV Q24H [facility] Last Infusion: 12/27/23 10:21 Dose: Infused Documented By: YOJANA Dextrose (D5w) 1,000 mls @ 100 mls/hr IVCONT .Q10H [facility] Last Admin: 12/27/23 09:52 Dose: 100 mls/hr Documented By: YOJANA Lactulose (Lactulose 20 Gm/30 Ml Solution) 10 gm G-TUBE BID [facility] Last Admin: 12/27/23 09:51 Dose: 10 gm Documented By: YOJANA Levothyroxine Sodium (Levothyroxine Sodium 112 Mcg Tablet) 112 mcg G-TUBE DAILY@0600 [facility] Last Admin: 12/27/23 06:44 Dose: 112 mcg Documented By: MAGNOLIA Nicotine (Nicotine 7 Mg Patch.Td24) 7 mg TRANSDERMA Q24H PRN PRN Reason: Smoking Cessation Perphenazine (Perphenazine 8 Mg Tablet) 8 mg G-TUBE BID [facility] Last Admin: 12/27/23 09:51 Dose: 8 mg Documented By: YOJANA Senna (Sennosides 8.6 Mg Tablet) 17.2 mg G-TUBE DAILY PRN PRN Reason: Constipation Sodium Chloride (0.9 % Sodium Chloride Flush 3 Ml Syringe) 3 ml IVFLUSH QSHIFT [facility] Last Admin: 12/27/23 09:52 Dose: 3 ml Documented By: YOJANA Labs 12/26/23 07:18 12/27/23 06:37 Labs: Laboratory Results - last 24 hr 12/27/23 06:37 Anion Gap 12 Estim Creat Clear Calc 21.8 Estimated GFR 24 Random Glucose 153 H Calcium 8.9 Assessment and Plan (1) Bladder mass: Status: Acute (2) Renal artery stenosis: Status: Acute (3) Hydronephrosis determined by ultrasound: Status: Acute Plan A 73 years old male with PMH of TBI, AAA s/p elective repair, COPD on prn home O2, hypothyroidism, HTN, HLD, BPH, and paranoid schizophrenia who presents with altered mentation and sodium level of 171. Bladder mass with obstruction causing Hydronephrosis CT abd\pelvis showed bilateral hydronephrosis Urology did Cystoscopy showing large bladder mass and could not place stent, suggest PCN on the right side IR placed Nephrostomy tube right side 12/25 Hematuria Post Cystoscopy on CBI hold Lovenox monitor response Urology following Acute hypernatremia complicated by acute metabolic encephalopathy due to volume depletion, patient is malnourished on tube feeds Mentation improving to baseline Sodium improving, continue D5W, reduce rate follow BMP adjusted the tube feeds with more water content 300 q4 Nephrology following Acute kidney injury secondary to Lt renal artery stenosis and bilateral Hydronephrosis Discuss with Vascular and IR re Renal artery stenosis , will hold on any procedures during this admission - outpatient follow-up with vascular surgery Creatinine at 2.6 Closely monitor I's and O's Nephrology following follow BMP UTI growing 2 bacterias in urine; Provedenxia and Enterococcus On Augmentin and Ceftriaxone ID input appreciated, levaquin and Ceftin on DC COPD not in exacerbation Hypertension monitor Paranoid schizophrenia Home medications restarted DVT PPx SCDs dispo - [facility] The patient needs overnight hospital stay for Hypernatremia management Quality Stroke Does the patient have a stroke diagnosis?: No VTE Prior VTE?: No VTE Risk Level:: Medical - low VTE Device Contraindication: N/A - Device Ordered VTE Drug Contraindication: N/A - Med Ordered
--- NOTE | 2023-12-27 13:04 | MHC.CLN ---
F/U PT IS S/P NEPHROSTOMY TUBE TF RE-STARTED PT TOLERATING TF JEVITY 1.0 AT MAX GOAL RATE 60ML/HR WITH 300ML FREE WATER FLUSHES Q 6 HRS PROVIDES 1526KCALS (29KCALS/KG), 64G PROTEIN (1.2G/KG), 2402ML FREE WATER FROM FORMULA (37ML/KG) MONITOR TOLERANCE AND LYTES
--- NOTE | 2023-12-27 15:52 | MHC.CM.PN ---
Per rounds, pt is not yet ready for DC, anticipate DC on 12/28/23, he will return to [facility] via BLS.
[2023-12-27] MEDS: Doxazosin Mesylate 2 MG TABLET 4 MG G-TUBE (22:19)
[2023-12-28] VITALS: BP 121/73; PULSE 80; RESP 16; TEMP 36.4; O2SAT 98
[2023-12-28 04:00] VITALS: BP 122/77; PULSE 80; RESP 16; TEMP 36.2; O2SAT 98
[2023-12-28] MEDS: Levothyroxine Sodium 112 MCG TABLET G-TUBE (06:21)
[2023-12-28 07:04] VITALS: BP 142/82; PULSE 86; RESP 16; TEMP 36.6; O2SAT 97
[2023-12-28 07:50] LABS: Anion Gap 10 (12-20); Blood Urea Nitrogen 47 mg/dL (9-16); Calcium 8.6 mg/dL (8.4-10.2); Carbon Dioxide 24 mmol/L (22-29); Chloride 104 mmol/L (96-108); Creatinine Clr Calc Pharmacy 27.6; Estimated Glomerular Filt Rate 32; Glucose Random 124 mg/dL (60-115); Potassium 3.9 mmol/L (3.3-5.1); Sodium 134 mmol/L (135-145)
--- NOTE | 2023-12-28 07:53 | P.DS_ITS ---
DS: Providers Provider Date of Service: 12/28/23 Date of admission: 12/16/23 15:24 Primary care physician: Jeffrey Delatorre DO Consults: 12/19/23 08:02 Consult to Nephrology Routine Consulting Provider: [facility] Reason for consultation: KELLY, Hypernatremia for eval and follow up OP 12/19/23 16:08 Consult to Urology Routine Consulting Provider: Jalyn Deutsch Reason for consultation: KELLY with reported hydronephrosis. Severe Stenosis left renal artery 12/19/23 16:30 Consult to Vascular Surgery Routine Consulting Provider: [facility] Reason for consultation: LEft renal artery stenosis for eval and rec. 12/20/23 16:56 Consult to Wound Care Routine Reason for consultation: scattered bruising/ rash 12/22/23 10:36 Consult to Infectious Diseases Routine Consulting Provider: [facility] Reason for consultation: 2 bacterias in urine, urine retention, Abx allergies for eval DS: Diagnosis Discharge Diagnosis (1) Bladder mass: Status: Acute (2) Renal artery stenosis: Status: Acute (3) Hydronephrosis determined by ultrasound: Status: Acute DS: Summary Hospital Course Hospital Course: Admission note HPI from ICU 73-year-old male who is chronically debilitated and a care home resident due to paranoid schizophrenia status post type PEG tube placement and tube feeds, history of COPD on as needed home oxygen, history of TBI, history of hypertension, hyperlipidemia, BPH, hypothyroidism, history of left lung mass in the upper lobe was sent from his care home as his sodium was 171. Patient does not give much history given his psych issues, when asked if he is hungry he says no, he says yes to if he is thirsty, when asked if he is eating well he is shows his PEG tube. He denies any fever, denies any cough and denies any other complaints Hospital course The patient was admitted to ICU for treatment of Acute hypernatremia of 173 complicated by acute metabolic encephalopathy Possibly due to volume depletion as patient is malnourished on tube feeds. Started on IV fluids with smooth trending down in Sodium level of 7-10 mg [id number] with improvement in mental status back to baseline. Improved to 134 at the day of discharge. He was also noted to have Acute kidney injury secondary to volume depletion leading to ATN with Creatinine stablized at 2.07 from baseline of almost 1 since admission. US renal system did not show any evidence of obstruction as the patient was evaluated by learning support aide who recommended avoidance of any nephrotoxic medications and to follow with him as outpatient. Patient was treated for hematuria status post cystoscopy, bladder biopsy, had CBI with mildly punch colored urine. CBI stopped yesterday and patient has Holland catheter to nephrostomy and can follow up with urology to determine when fc can come out. Nephrostomy tube placement on 12/26/23. 8.5 kazakh right nephrostomy tube moderate protein calorie malnutrition BMI 23.6 UTI growing Provedenxia and Enterococcus tx with Augmentin and Ceftriaxone while inpatient ID input appreciated, levaquin and Ceftin total 14 day tx COPD. no exacerbation Hypertension. stable Paranoid schizophrenia. continue Home medications Time Attestation Discharge Coordination Time (in mins): 45 Quality: Safe Use of Opioids Does Pt have an Active Cancer Diagnosis on the Problem List?: No Quality: Stroke Does the patient have a stroke diagnosis?: No Physical Exam Vital Signs: Vital Signs: Last Vital Signs Temp 97.8 F 12/28/23 07:04 Pulse 86 12/28/23 07:04 Resp 16 12/28/23 07:04 BP 142/82 H 12/28/23 07:04 Pulse Ox 97 12/28/23 07:04 O2 Del Method Room Air 12/28/23 07:04 O2 Flow Rate 2 12/26/23 15:50 BMI result Body Mass Index 23.6 Appearing in no acute distress head is normocephalic atraumatic eyes pupils are PERRLA sclera is anicteric mouth throat mucous membranes are intact and moist neck is supple no lymphadenopathy, no JVD noted lung sounds are clear to auscultation heart regular rate rhythm, clear S1, S2 positive bowel sounds, abdomen is soft, nontender, nephrostomy in place neuro patient is alert , minimal verbalization DS: Data Data Completed and Pending Completed studies during hospitalization [Text1]: Procedures Introduction of Vasopressor into Peripheral Vein, Percutaneous Approach (08/28/23) Restriction of Abdominal Aorta with Intraluminal Device, Percutaneous Approach (12/24/22) Pending studies at discharge: Pending at discharge 12/23/23 19:20 Surgical [PTH] Routine Labs on day of discharge: Laboratory Results - last 24 hr 12/28/23 07:12 Hold Purple Top SEE NOTE Sodium 134 L Potassium 3.9 Chloride 104 Carbon Dioxide 24 Anion Gap 10 L BUN 47 H Creatinine 2.07 H Estim Creat Clear Calc 27.6 Estimated GFR 32 Random Glucose 124 H Calcium 8.6 Discharge Plan Discharge Anticipated Discharge Date/Time: 12/19/23 14:28 Patient Disposition: Xfer SNF Discharge Diagnosis: Hydronephrosis Hematuria Hypernatremia Metabolic encephalopathy KELLY Referrals: [facility] [Outside] - 1 Day ([facility]) Jeffrey Delatorre DO [Primary Care Provider] - 1 Week William Harden MD [Physician] - 1 Week Discharge Medications: New levofloxacin 500 mg tablet 500 mg PO DAILY Qty: 7 0RF cefuroxime axetil 500 mg tablet 500 mg PO BID Qty: 14 0RF Continued acetaminophen 325 mg Tablet 650 mg feeding tube Q6H PRN (Reason: Fever Or Pain) Rx Instructions: DO NOT EXCEED 3 GRAMS IN 24 HOURS perphenazine 8 mg tablet 8 mg feeding tube BID terazosin 5 mg capsule 5 mg feeding tube BEDTIME bethanechol chloride 50 mg tablet 50 mg feeding tube BID albuterol sulfate 90 mcg/actuation HFA aerosol inhaler 2 puff inhalation Q4H PRN (Reason: shortness of breath or wheezing) lactulose 10 gram/15 mL solution 15 ml feeding tube BID simvastatin 40 mg tablet 40 mg feeding tube BEDTIME levothyroxine 112 mcg tablet 112 mcg feeding tube DAILY@0600 bisacodyl [Dulcolax (bisacodyl)] 10 mg suppository 10 mg TN DAILY PRN (Reason: Constipation) Rx Instructions: USE IF SENNA IS INEFFECTIVE Fleet Enema 19-7 gram/118 mL enema 118 ml TN DAILY PRN (Reason: Constipation) polyvinyl alcohol [Artificial Tears (polyvin alc)] 1.4 % drops 1 drp ophthalmic (eye) Q4H PRN (Reason: Dry Eyes) nicotine 7 mg/24 hr patch 24 hour 1 patch transdermal Q24H PRN (Reason: Smoking Cessation) sennosides [senna] 8.6 mg tablet 17.2 mg feeding tube DAILY PRN (Reason: Constipation) diazepam 2 mg tablet 3 mg feeding tube BID Discharge Orders: Discharge Order (Routine); Ordered 12/28/23 Ordered By: Nathalia Rueda Diet: Advance to usual diet Activity on Discharge: As tolerated Stand Alone Forms: Patient Portal Discharge page Print Language: Romanian Care Plan Goals: Follow Sodium level as outpatient Follow with Dr. Harden from Nephrology as outpatient Continue Holland catheter for nephrostomy Health Concerns: Hydronephrosis Hematuria Hypernatremia Metabolic encephalopathy KELLY Plan of Treatment: Follow-up with primary care provider as needed Take all medications as prescribed Assessment: Treated for bladder mass with obstruction causing hydronephrosis, hematuria post cystoscopy, post nephrostomy tube right side, acute hypernatremia with metabolic encephalopathy, volume depletion, KELLY. Follow-up with Nephrology outpatient for management of nephrostomy tube
[2023-12-28] MEDS: Perphenazine 8 MG TABLET G-TUBE (08:58)
[2023-12-28] MEDS: Atorvastatin Calcium 20 MG TABLET G-TUBE (08:58)
[2023-12-28] MEDS: 0.9 % Sodium Chloride Flush 3 ML SYRINGE IVFLUSH ×2 (08:59)
[2023-12-28] MEDS: Lactulose 20 GM/30 ML SOLUTION 10 GM G-TUBE (08:59)
--- NOTE | 2023-12-28 09:39 | MHC.CM.PN ---
Patient is medically cleared for dc today, to return to [facility]. [facility] will transport Patient back to his SNF today at 1 PM. CM spoke with Guardian/Latrice @ , addressed IMM with her and informed her of the dc plan.
[2023-12-28] MEDS: cefTRIAXone sodium 1 GM in 0.9 % Sodium Chloride 50 ML IV (10:38)
[2023-12-28 12:01] VITALS: BP 132/89; PULSE 90; RESP 18; TEMP 36.8; O2SAT 97
[2023-12-28] MEDS: Amoxicillin/Potassium Clav 250 MG TABLET G-TUBE (12:10)
--- NOTE | 2024-06-11 16:28 | P.OP_ITS ---
Operative Note Operative Note Date of Service: 12/23/23 Narrative: PreOperative Diagnosis: bladder cancer Post Operative Diagnosis: bladder cancer - Tumor size 10 cm, location floor of bladder involving ureteric orifices Procedure: TURBT Surgeon: Dr Vasquez Romero Anesthesia: general Indications for procedure: Admit with bilateral hydro nephrosis, bladder mass consistent with bladder tumor Procedure: After informed consent was verified the patient was brought to the operating room and placed in a supine position. Anesthesia was administered per protocol. The patient was placed in a modified dorsal lithotomy position and prepped and draped in a sterile fashion. Safety pause time-out was performed. Antibiotics were confirmed. A 26 [place] continuous flow resectoscope was inserted per urethra. The visual obturator was used in order to minimize potential for urethral damage. Large bladder tumor seen within the bladder along with clot. Bladder was irrigated. Large bladder tumor was resected. This took approximately 40 minutes. We were unable to locate the ureteric orifice throughout the procedure. The patient tolerated the procedure well. They were extubated in the operating room and transferred in stable condition to the recovery area. Plan will be made for Interventional Radiology to place PCN Pathology: Bladder tumor Drains: []
== END 2023-12-28 13:03 | disposition skilled nursing facility (03) | DRG 668 ==
LOC: HO.ED 12:43 → HO.EDOVER 15:57 → HO.ICU 16:15 → HO.IMC 12-17 13:03
PROVIDERS: Internal Medicine; Physician Assistant Medical; Physician Assistant Surgical; Student in an Organized Health Care Education/Training Program; Urology; Admitting Provider Internal Medicine Critical Care Medicine; Emergency Provider Emergency Medicine; PCP Hospitalist; Visit Provider Nurse Practitioner Acute Care
PROC: 0TBB8ZZ Excision of Bladder, Via Natural or Artificial Opening Endoscopic (ICD-10-PCS; principal; 2023-12-23 16:30)
PROC: 0TBB8ZZ Excision of Bladder, Via Natural or Artificial Opening Endoscopic (ICD-10-PCS; 2023-12-23 16:30)
PROC: 0T9330Z Drainage of Right Kidney Pelvis with Drainage Device, Percutaneous Approach (ICD-10-PCS; principal; 2023-12-26 13:00)
DX: C67.4 Malignant neoplasm of posterior wall of bladder (principal); E43 Unspecified severe protein-calorie malnutrition; G93.41 Metabolic encephalopathy; N17.0 Acute kidney failure with tubular necrosis; E87.0 Hyperosmolality and hypernatremia; F20.0 Paranoid schizophrenia; Z68.1 Body mass index [BMI] 19.9 or less, adult; N13.6 Pyonephrosis; D63.1 Anemia in chronic kidney disease; N32.3 Diverticulum of bladder; B95.2 Enterococcus as the cause of diseases classified elsewhere; R31.9 Hematuria, unspecified; I70.1 Atherosclerosis of renal artery; I71.43 Infrarenal abdominal aortic aneurysm, without rupture; J44.9 Chronic obstructive pulmonary disease, unspecified; Z99.81 Dependence on supplemental oxygen; E03.9 Hypothyroidism, unspecified; I12.9 Hypertensive chronic kidney disease with stage 1 through stage 4 chronic kidney disease, or unspecified chronic kidney disease; N18.30 Chronic kidney disease, stage 3 unspecified; Z93.1 Gastrostomy status; Z87.891 Personal history of nicotine dependence; Z79.890 Hormone replacement therapy; Z79.899 Other long term (current) drug therapy
CPT/HCPCS: 36415; 50432; 71045; 74176; 76775; 80048; 80053; 81001; 83930; 84295; 84484; 85025; 85027; 85610; 86850; 86900; 86901; 87086; 87088; 87186; 88307; 88341; 88342; 92950; 93005; 99152; 99153; 99284; C1758; C1769; C1887; C1892; C1894; J0290; J0696; J1100; J1650; J2405; J2704; J3010; Q9967

== ENCOUNTER → 2023-12-16 08:58 | Outpatient (BNV) | payer MEDICARE, MEDICAID, SELFPAY | PROVIDERS: Emergency Provider Emergency Medicine; Visit Provider Internal Medicine Cardiovascular Disease | DX: R94.31 Abnormal electrocardiogram [ECG] [EKG] (principal); R07.9 Chest pain, unspecified | CPT/HCPCS: 93010 ==

== ENCOUNTER → 2023-12-16 09:28 | Outpatient (BNV) | payer MEDICARE, MEDICAID, SELFPAY | PROVIDERS: Emergency Provider Emergency Medicine; Visit Provider Internal Medicine Critical Care Medicine | DX: N17.9 Acute kidney failure, unspecified (principal); E87.0 Hyperosmolality and hypernatremia; J44.9 Chronic obstructive pulmonary disease, unspecified; R91.8 Other nonspecific abnormal finding of lung field; I71.43 Infrarenal abdominal aortic aneurysm, without rupture | CPT/HCPCS: 99222; 99291 ==

== ENCOUNTER 2023-12-16 15:24 | Outpatient (BNV) | payer MEDICARE, MEDICAID, SELFPAY | END 2023-12-26 13:15 | PROVIDERS: Admitting Provider Internal Medicine Critical Care Medicine; Emergency Provider Emergency Medicine; PCP Hospitalist; Visit Provider Student in an Organized Health Care Education/Training Program | DX: N13.0 Hydronephrosis with ureteropelvic junction obstruction (principal) | CPT/HCPCS: 50432 ==

== ENCOUNTER → 2023-12-16 15:24 | Outpatient (BNV) | payer MEDICARE, MEDICAID, SELFPAY | PROVIDERS: Admitting Provider Internal Medicine Critical Care Medicine; Emergency Provider Emergency Medicine; PCP Hospitalist; Visit Provider Internal Medicine Hypertension Specialist | DX: N17.9 Acute kidney failure, unspecified (principal); N18.30 Chronic kidney disease, stage 3 unspecified; Z93.6 Other artificial openings of urinary tract status | CPT/HCPCS: 99223; 99232 ==

== ENCOUNTER → 2023-12-16 15:24 | Outpatient (BNV) | payer MEDICARE, MEDICAID, SELFPAY | PROVIDERS: Admitting Provider Internal Medicine Critical Care Medicine; Emergency Provider Emergency Medicine; PCP Hospitalist; Visit Provider Urology | DX: C67.6 Malignant neoplasm of ureteric orifice (principal) | CPT/HCPCS: 52240; 99222; 99232 ==

== ENCOUNTER → 2023-12-16 15:24 | Outpatient (BNV) | payer MEDICARE, MEDICAID, SELFPAY ==
--- NOTE | 2024-06-11 16:16 | MHC.OFFVIS ---
Intake Visit Reasons: Hypernatremia Allergies cefpodoxime Allergy (Intermediate, Verified 02/28/24 08:19) Rash lactose-reduced food [From [employer]] Allergy (Unknown, Verified 02/28/24 08:19) Unknown [facility] Medical History AAA (abdominal aortic aneurysm) without rupture Hyponatremia Acute UTI Obstructed, uropathy Acute on chronic kidney failure Bladder mass Acute renal failure Pulmonary nodules COPD (chronic obstructive pulmonary disease) Encounter for screening colonoscopy Lung mass Swallowing problem Pulmonary emphysema COVID-19 vaccine series completed History of COVID-19 Resides in alf facility History of falling Personal history of traumatic brain injury Other specified intracranial injury without loss of consciousness, subsequent encounter Paralytic gait Benign prostatic hyperplasia without lower urinary tract symptoms Pain in left hip Primary generalized (osteo)arthritis Constipation, unspecified Impulse disorder, unspecified Trichotillomania Alcohol dependence, uncomplicated Hyperlipidemia, unspecified Hypothyroidism, unspecified Weakness Unspecified lack of coordination Muscle weakness (generalized) Age-related nuclear cataract, bilateral Unspecified abnormalities of gait and mobility Personal history of COVID-19 Repeated falls [place] i fracture, initial encounter for closed fracture Unsteadiness on feet Other abnormalities of gait and mobility Dysphagia, oropharyngeal phase Paranoid schizophrenia Surgical History Status post percutaneous abdominal aortic aneurysm (AAA) repair Status post AAA (abdominal aortic aneurysm) repair History of facial surgery Family History Unknown No problems noted. 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
== END ==
PROVIDERS: Admitting Provider Internal Medicine Critical Care Medicine; Emergency Provider Emergency Medicine; PCP Hospitalist; Visit Provider Student in an Organized Health Care Education/Training Program
DX: I70.1 Atherosclerosis of renal artery (principal); N32.89 Other specified disorders of bladder; N13.30 Unspecified hydronephrosis
CPT/HCPCS: 99232; 99233; 99239

== ENCOUNTER → 2023-12-16 15:24 | Outpatient (BNV) | payer MEDICARE, MEDICAID, SELFPAY | PROVIDERS: Admitting Provider Internal Medicine Critical Care Medicine; Emergency Provider Emergency Medicine; PCP Hospitalist; Visit Provider Surgery Vascular Surgery | DX: I70.1 Atherosclerosis of renal artery (principal) | CPT/HCPCS: 99222 ==

== ENCOUNTER → 2023-12-16 15:24 | Outpatient (BNV) | payer MEDICARE, MEDICAID, SELFPAY | PROVIDERS: Admitting Provider Internal Medicine Critical Care Medicine; Emergency Provider Emergency Medicine; PCP Hospitalist; Visit Provider Internal Medicine | DX: N13.30 Unspecified hydronephrosis (principal); G93.41 Metabolic encephalopathy | CPT/HCPCS: 99222 ==

== ENCOUNTER 2023-12-31 20:57 | Inpatient (IN) | payer MEDICARE, MEDICAID, SELFPAY ==
--- NOTE | ~2023-12-31 | XR_ITS ---
EXAMINATION: XR ABDOMEN KUB CLINICAL INDICATION: Replaced G-tube, Gastrografin via G-tube COMPARISON: None available. TECHNIQUE: AP view of the abdomen. FINDINGS: The tip of a G-tube projects over the stomach. Contrast is noted within the stomach, duodenum and proximal jejunum. The bowel gas pattern is normal with no evidence of ileus or obstruction. No unusual soft tissue calcifications are noted. The bones are unremarkable. Aortobiiliac stent graft is noted. The lung bases are clear. XR/XR abdomen 1V IMPRESSION: G-tube tip projects over the stomach. Following injection of Gastrografin into the G-tube, contrast is seen within the stomach, duodenum and proximal jejunum.
--- NOTE | ~2023-12-31 | CT_ITS ---
EXAMINATION: CT HEAD WITHOUT CONTRAST CLINICAL INFORMATION: Unwitnessed fall no focal deficits COMPARISON: CT head from 08/28/2023 TECHNIQUE: Contiguous axial imaging was performed from the skull base to vertex without intravenous administration of contrast. This CT examination was performed using dose optimization techniques as appropriate, variously including the following: *Automated exposure control *Adjustment of mA and/or kV according to patient size (this includes techniques or standardized protocols for targeted exams where dose is matched to indication/reason for exam; i.e. extremities or head) *Use of iterative reconstruction technique DLP: 662 mGy-cm FINDINGS: Redemonstrated encephalomalacia in the right frontotemporal lobe/middle cranial fossa. Chronic white matter small vessel ischemic changes. Cerebral atrophy with commensurate ventricular changes. There is no evidence of acute intracranial hemorrhage or territorial infarction. No abnormal mass effect or midline shift is seen. Peck to white matter differentiation is well preserved. No extra-axial fluid collections are identified. The ventricles are normal in size. There is no abnormal attenuation within the brain parenchyma. Demonstrate postsurgical changes of the bilateral maxillary and left zygomatic arch. Chronic appearing fracture deformities of the nasal bones. Mucoperiosteal thickening of the right sphenoid, left ethmoid, and left frontal sinuses. Sinuses The osseous structures and soft tissues are normal. The mastoid air cells and visualized portions of the paranasal sinuses are well aerated. Atherosclerotic calcifications. CT/CT head/brain wo IV con IMPRESSION: 1. No acute intracranial pathology. 2. Redemonstrated encephalomalacia of the right frontotemporal lobe/middle cranial fossa. 3. Chronic white matter small vessel ischemic changes. 4. Cerebral atrophy with commensurate ventricular changes. 5. Redemonstrated postsurgical changes of the bilateral maxillary and left zygomatic arch. 6. Mucoperiosteal thickening of the right sphenoid, left ethmoid, and left frontal sinuses.
--- NOTE | ~2023-12-31 | XR_ITS ---
EXAMINATION: XR CHEST CLINICAL INFORMATION: Cough COMPARISON: Multiple priors, most recent 12/16/2023 TECHNIQUE: Frontal view of the chest was obtained. FINDINGS: Lung volumes are symmetric. No focal consolidation. Tubular density in the left upper lobe seen on prior chest CT 10/13/2023 is not well demonstrated radiographically. No evidence of pneumothorax, pleural effusion, or pulmonary edema. Cardiac size is within normal limits. Calcification is present at the aortic arch. No acute osseous findings are seen. XR/XR chest 1V IMPRESSION: No acute cardiopulmonary findings. Tubular density in the left upper lobe seen on prior chest CT 10/13/2023 is not well demonstrated radiographically.
--- NOTE | ~2023-12-31 | IR_ITS ---
History: 73-year-old male with bladder cancer. The patient pulled out his right side nephrostomy tube and gastrostomy tube. Procedures performed: 1. Reinsertion of a 16 Sudanese gastrostomy tube 2. Ultrasound and fluoroscopic guided placement of a right nephroureteral stent. Physician: Hitesh Leary MD COUNT INCLUDES THE [facility] Anesthesia: IV moderate sedation was performed under my direct supervision with continuous physiologic monitoring utilizing intravenous fentanyl and versed for a total of 30 minutes. 10 mL of 1% lidocaine was used for local anesthesia at the nephroureteral stent site. Lidocaine jelly was used for reinsertion of the gastrostomy tube. Specimen: None Tubes: 1. 16 Sudanese gastrostomy 2. 8.5 Sudanese x 24 cm nephroureteral stent Estimated blood loss: Minimal Complications: None Procedure in detail: Informed and written consent was obtained from the patient's healthcare proxy. The patient was positioned supine on the angiography table. A stiff Glidewire was navigated into the existing gastrostomy site over which serial dilatation was performed until a 16 Sudanese cystostomy tube could be placed. The balloon on the gastrostomy was inflated with 5 mL of sterile water and secured to the abdomen. A subsequent plain film confirmed appropriate position and is dictated separately. The patient was then positioned prone on the angiography table with sterile preparation of his right flank. Ultrasound showed hydronephrosis. An appropriate posterior inferior calyx was selected for access. 1% lidocaine was injected subcutaneously and extended to the renal capsule under ultrasound guidance. A small incision was made in the skin with a #11 blade. Through the incision and under ultrasound guidance with permanent recordings and direct visualization of needle penetration of a posterior inferior calyx, the renal collecting system was catheterized. An AccuStick set was used to transition to a stiff Glidewire, which was navigated into the bladder. Over this, serial dilatation was performed until an 8.5 Sudanese x24 cm nephroureteral stent could be placed. An antegrade nephrostogram showed that the nephroureteral stent was draining properly and was in excellent position. It also confirmed the previously seen hydronephrosis and hydroureter. The nephroureteral stent was sutured and secured with a sterile dressing, including a Percufix device. It was connected to gravity drainage. Summary: 1. Successful replacement of a pulled gastrostomy tube. 2. Successful placement of a right-sided nephroureteral stent. We elected to place a nephroureteral stent as the patient has a history of pulling out lines and tubes. We figured that this could be internalized and would be less prone to dislodgment.
--- NOTE | ~2023-12-31 | IR_ITS ---
History: 73-year-old male with bladder cancer. The patient pulled out his right side nephrostomy tube and gastrostomy tube. Procedures performed: 1. Reinsertion of a 16 [place] gastrostomy tube 2. Ultrasound and fluoroscopic guided placement of a right nephroureteral stent. Physician: Hitesh Leary MD [facility] Anesthesia: IV moderate sedation was performed under my direct supervision with continuous physiologic monitoring utilizing intravenous fentanyl and versed for a total of 30 minutes. 10 mL of 1% lidocaine was used for local anesthesia at the nephroureteral stent site. Lidocaine jelly was used for reinsertion of the gastrostomy tube. Specimen: None Tubes: 1. 16 [place] gastrostomy 2. 8.5 [place] x 24 cm nephroureteral stent Estimated blood loss: Minimal Complications: None Procedure in detail: Informed and written consent was obtained from the patient's healthcare proxy. The patient was positioned supine on the angiography table. A stiff Glidewire was navigated into the existing gastrostomy site over which serial dilatation was performed until a 16 [place] cystostomy tube could be placed. The balloon on the gastrostomy was inflated with 5 mL of sterile water and secured to the abdomen. A subsequent plain film confirmed appropriate position and is dictated separately. The patient was then positioned prone on the angiography table with sterile preparation of his right flank. Ultrasound showed hydronephrosis. An appropriate posterior inferior calyx was selected for access. 1% lidocaine was injected subcutaneously and extended to the renal capsule under ultrasound guidance. A small incision was made in the skin with a #11 blade. Through the incision and under ultrasound guidance with permanent recordings and direct visualization of needle penetration of a posterior inferior calyx, the renal collecting system was catheterized. An AccuStick set was used to transition to a stiff Glidewire, which was navigated into the bladder. Over this, serial dilatation was performed until an 8.5 [place] x24 cm nephroureteral stent could be placed. An antegrade nephrostogram showed that the nephroureteral stent was draining properly and was in excellent position. It also confirmed the previously seen hydronephrosis and hydroureter. The nephroureteral stent was sutured and secured with a sterile dressing, including a Percufix device. It was connected to gravity drainage. Summary: 1. Successful replacement of a pulled gastrostomy tube. 2. Successful placement of a right-sided nephroureteral stent. We elected to place a nephroureteral stent as the patient has a history of pulling out lines and tubes. We figured that this could be internalized and would be less prone to dislodgment.
--- NOTE | ~2023-12-31 | XR_ITS ---
EXAMINATION: XR BILATERAL HIPS WITH AP PELVIS CLINICAL INFORMATION: Bilateral hip pain after unwitnessed fall COMPARISON: CT abdomen pelvis 12/20/2023 TECHNIQUE: AP view of the pelvis and 2 additional views of each hip were obtained. FINDINGS: There are marked degenerative changes present in the hips, right greater than left, similar to the 12/20/2023 CT scan. No pelvic or hip fracture is seen. The distal portion of a right ureteral stent is visualized and unremarkable. An aorto biiliac stent graft is present. XR/XR hip BI w PEL1V IMPRESSION: No evidence of an acute osseous injury. Marked degenerative changes in the hips, right greater than left.
[2023-12-31 21:20] VITALS: BP 122/82; BP 150/100; PULSE 89; PULSE 98; RESP 16; TEMP 36.8; O2SAT 96; O2SAT 97; BMI 22.3
--- NOTE | 2023-12-31 21:32 | ED_ITS ---
HPI - General Adult General Chief complaint: General Medical Stated complaint: PULLED OUT NEPHROSTOMY TUBE Time Seen by Provider: 12/31/23 21:29 Source: EMS Mode of arrival: EMS Limitations: no limitations History of Present Illness ED Provider: yao GARCIA narrative: Patient's bladder cancer with bilateral ureteric stent with right nephrostomy tube which was placed on 12/25 for R hydronephrosis patient has pulled out nephrostomy tube just prior to arrival patient is still has Holland catheter Related Data Home Medications ?Medication ?Instructions ?Recorded ?Confirmed bisacodyl 10 mg rectal suppository 10 mg OR DAILY PRN Constipation 09/20/22 12/16/23 (Dulcolax (bisacodyl)) sodium phosphates 19 gram-7 118 ml OR DAILY PRN Constipation 09/20/22 12/16/23 gram/118 mL enema (Fleet Enema) lactulose 10 gram/15 mL oral 15 ml feeding tube BID 09/26/22 12/16/23 solution levothyroxine 112 mcg tablet 112 mcg feeding tube DAILY@0600 09/26/22 12/16/23 simvastatin 40 mg tablet 40 mg feeding tube BEDTIME 09/26/22 12/16/23 nicotine 7 mg/24 hr daily 1 patch transdermal Q24H PRN 12/05/22 12/16/23 transdermal patch Smoking Cessation polyvinyl alcohol 1.4 % eye drops 1 drp ophthalmic (eye) Q4H PRN Dry 12/05/22 12/16/23 (Artificial Tears (polyvinyl Eyes alcohol)) sennosides 8.6 mg tablet (senna) 17.2 mg feeding tube DAILY PRN 12/05/22 12/16/23 Constipation diazepam 2 mg tablet 3 mg feeding tube BID 10/03/23 12/16/23 albuterol sulfate 90 mcg/actuation 2 puff inhalation Q4H PRN 10/13/23 12/16/23 aerosol inhaler shortness of breath or wheezing bethanechol chloride 50 mg tablet 50 mg feeding tube BID 10/13/23 12/16/23 perphenazine 8 mg tablet 8 mg feeding tube BID 10/13/23 12/16/23 terazosin 5 mg capsule 5 mg feeding tube BEDTIME 10/13/23 12/16/23 acetaminophen 325 mg tablet 650 mg feeding tube Q6H PRN Fever 12/16/23 12/16/23 Or Pain Previous Rx's ?Medication ?Instructions ?Recorded cefuroxime axetil 500 mg tablet 500 mg PO BID #14 tabs 12/28/23 levofloxacin 500 mg tablet 500 mg PO DAILY #7 tabs 12/28/23 Allergies Allergy/AdvReac Type Severity Reaction Status Date / Time cefpodoxime Allergy Intermediate Rash Verified 12/31/23 21:22 Review of Systems 2 Review of Systems: Yes all other systems are reviewed and are negative [facility] Past Medical History Medical History Lung mass Swallowing problem Pulmonary emphysema COVID-19 vaccine series completed History of COVID-19 Resides in halfway facility History of falling Personal history of traumatic brain injury Other specified intracranial injury without loss of consciousness, subsequent encounter Paralytic gait Benign prostatic hyperplasia without lower urinary tract symptoms Pain in left hip Primary generalized (osteo)arthritis Constipation, unspecified Impulse disorder, unspecified Trichotillomania Alcohol dependence, uncomplicated Hyperlipidemia, unspecified Hypothyroidism, unspecified Weakness Unspecified lack of coordination Muscle weakness (generalized) Age-related nuclear cataract, bilateral Unspecified abnormalities of gait and mobility Personal history of COVID-19 Repeated falls [place]ef[place] i fracture, initial encounter for closed fracture Unsteadiness on feet Other abnormalities of gait and mobility Dysphagia, oropharyngeal phase Paranoid schizophrenia Surgical History Status post AAA (abdominal aortic aneurysm) repair History of facial surgery Family History Family History Unknown No problems noted. Social History Social History Household Members: Other Housing: Correction Housing Other:: [facility] Are you a primary healthcare advisory services manager to a significant other at home: No Do you presently have visiting nurse or other home services: No Unable to assess alcohol history related to: Unknown Comment: sitter Patient Tobacco Use Status: Former Tobacco user Tobacco use type: Cigarette Cigarettes Per Day: 4 Years Smoked: 57 Smoked in Last 30 Days: No Use of substances other than those prescribed or required for medical reasons: No Advance Directives: Yes Advance Directives on File: Yes Advance Directives Date on File: 12/05/22 Do you have a plan to hurt others: No Plan Nutrition Risks: No Nutritional Risk service: No Current occupational status: disabled Physical Exam ED Vital Signs: Vital Signs - 24 hr 12/31/23 21:20 01/01/24 00:37 Temperature 98.3 F 97.9 F Pulse Rate 98 90 Respiratory Rate 16 16 Blood Pressure 122/82 128/77 Pulse Oximetry 97 98 Oxygen Delivery Method Room Air Room Air BMI result Body Mass Index 22.3 Appearance: Alert. Oriented X2-3. No acute distress. Eyes: No pallor ENT: Pharynx normal. Oral Mucosa moist Neck: Normal inspection. Neck supple. CVS: Normal heart rate and rhythm. Pulses normal. Respiratory: No respiratory distress. Equal air entry bilateral, no wheezing/rales/rhonchi Abdomen: Soft and nontender. Bowel sounds are present, no mass palpable, no CVA tenderness nephrostomy tube out side Skin: Skin warm and dry. Normal skin color. Normal skin turgor. Extremities: No lower extremity edema. No calf tenderness Neuro: Oriented X 2-3. No motor deficit. No sensory deficit.No cerebellar signs , cranial nerves II-XII intact Medications Administered Discontinued Medications Generic Name Dose Route Start Last Admin Trade Name Freq PRN Reason Stop Dose Admin Sodium Chloride 1,000 mls @ 999 mls/hr 01/01/24 01:07 01/01/24 02:42 Ns IV 01/01/24 02:07 Infused .Q1H1M ONE Infusion Ceftriaxone Sodium 1 gm/ 50 mls @ 100 mls/hr 01/01/24 01:10 01/01/24 02:13 Sodium Chloride IV 01/01/24 01:39 Infused ONCE ONE Infusion Levofloxacin 500 mg in 100 mls @ 100 mls/hr 01/01/24 01:11 01/01/24 02:42 Levaquin IV 01/01/24 02:10 Infused ONCE ONE Infusion Medical Decision Making Medical Decision Making [facility] Narrative: Patient is status post nephrostomy tube dislodgement will admit patient for replacement Differential Diagnosis Differential Diagnoses: The differential diagnosis associated with the presentation includes Admission/Observation Consideration of admission/observation: Escalation of care including admission/observation considered Consult Healthcare Provider Management of the patient was discussed with: Hospitalist Lab Data [facility] Lab Attestation statement: I reviewed the patient's lab results. 12/31/23 22:09 01/01/24 04:54 Labs: Lab Results 12/31/23 12/31/23 01/01/24 Range/Units 22:09 22:13 01:36 WBC 11.9 H (4.8-10.8) X10*3/uL RBC 3.20 L (4.60-5.80) X10*6/uL Hgb 8.9 L (14.0-18.0) g/dl Hct 27.0 L (42.0-52.0) % MCV 84.4 (80.0-98.0) fL MCH 27.8 (27.0-33.0) pg MCHC 33.0 (31.0-36.0) g/dl RDW 15.4 (11.0-16.0) % Plt Count 179 (160-400) X10*3/uL MPV 10.6 (9.4-12.4) fL Immature Gran % (Auto) 1.2 H (0.0-0.4) % Neut % (Auto) 80.1 H (45-73) % Lymph % (Auto) 8.9 L (20-40) % [place] % (Auto) 8.4 (2-11) % Eos % (Auto) 1.2 (0-4) % Baso % (Auto) 0.2 (0-2) % Lymph # (Auto) 1.1 L (1.2-4.9) X10*3/uL [place] # (Auto) 1.0 (0.1-1.2) X10*3/uL Eos # (Auto) 0.1 (0.0-0.4) X10*3/uL Baso # (Auto) 0.0 (0.0-0.2) X10*3/uL Abs Immat Gran (auto) 0.14 H (0.00-0.03) X10*3/uL Absolute Neuts (auto) 9.5 H (2.0-8.3) x10*3/uL Absolute Nucleated RBC 0.000 (0.0-0.012) X10*3/uL Nucleated RBC % (auto) 0.0 (0.0-0.2) /100WBC Sodium 129 L (135-145) mmol/L Potassium 5.1 D (3.3-5.1) mmol/L Chloride 98 (96-108) mmol/L Carbon Dioxide 23 (22-29) mmol/L Anion Gap 13 (12-20) BUN 54 H (9-16) mg/dL Creatinine 2.61 H (0.5-1.4) mg/dL Estim Creat Clear Calc 21.0 Estimated GFR 24 Random Glucose 94 (60-115) mg/dL Lactic Acid 0.9 (0.5-2.0) mmol/L Calcium 8.0 L D (8.4-10.2) mg/dL Total Bilirubin 0.4 (0.0-1.0) mg/dL AST 117 H (5-37) U/L ALT 142 H (0-40) U/L Alkaline Phosphatase 117 (39-117) U/L Total Protein 5.3 L (6.5-8.0) g/dL Albumin 2.6 L (3.5-5.0) g/dL Influenza Type A (PCR) NEGATIVE (Negative) Influenza Type B (PCR) NEGATIVE (Negative) RSV RNA Qual (PCR) NEGATIVE (Negative) SARS-CoV-2 RNA (RT-PCR) NEGATIVE (Negative) Discharge Plan Discharge Clinical Impression: Obstructed, uropathy, Acute UTI Patient Disposition: Admitted As Inpatient
[2023-12-31 22:14] LABS: MANUAL DIFF FLAG NO
[2023-12-31 22:15] LABS: Basophils Percent Auto 0.2 % (0-2); Eosinophils Absolute Auto 0.1 X10*3/uL (0.0-0.4); Eosinophils Percent Auto 1.2 % (0-4); Hemoglobin 8.9 g/dl (14.0-18.0); Imm Gran Abs Auto 0.14 X10*3/uL (0.00-0.03); Imm Gran Pct Auto 1.2 % (0.0-0.4); Lymphocytes Absolute Auto 1.1 X10*3/uL (1.2-4.9); Lymphocytes Percent Auto 8.9 % (20-40); Mean Corpuscular Hemoglobin 27.8 pg (27.0-33.0); Mean Corpuscular Volume 84.4 fL (80.0-98.0); Mean Platelet Volume 10.6 fL (9.4-12.4); Monocytes Percent Auto 8.4 % (2-11); Neutrophils Absolute Auto 9.5 x10*3/uL (2.0-8.3); Neutrophils Percent Auto 80.1 % (45-73); Platelet Count 179 X10*3/uL (160-400); Red Cell Distribution Width 15.4 % (11.0-16.0); White Blood Count 11.9 X10*3/uL (4.8-10.8)
[2023-12-31 22:43] LABS: Alanine Aminotransferase 142 U/L (0-40); Albumin Level 2.6 g/dL (3.5-5.0); Alkaline Phosphatase 117 U/L (39-117); Anion Gap 13 (12-20); Aspartate Amino Transferase 117 U/L (5-37); Bilirubin Total 0.4 mg/dL (0.0-1.0); Blood Urea Nitrogen 54 mg/dL (9-16); Carbon Dioxide 23 mmol/L (22-29); Chloride 98 mmol/L (96-108); Estimated Glomerular Filt Rate 24; Glucose Random 94 mg/dL (60-115); Potassium 5.1 mmol/L (3.3-5.1); Sodium 129 mmol/L (135-145); Total Protein 5.3 g/dL (6.5-8.0)
[2023-12-31 22:56] LABS: Influenza A PCR NEGATIVE (Negative); Influenza B PCR NEGATIVE (Negative); Resp Syncy Virus RNA Qual PCR NEGATIVE (Negative); SARS COV2 PCR INHOUSE NEGATIVE (Negative)
[2024-01-01] VITALS (9 sets, daily range): BP systolic 117–134; BP diastolic 58–80; PULSE 85–98; RESP 14–20; TEMP 36–36.6; O2SAT 96–99; BMI 20.3
[2024-01-01] MEDS: levoFLOXacin/D5W 500 MG/100 ML PIGGYBACK 100 MG IV (01:43)
[2024-01-01] MEDS: cefTRIAXone sodium 1 GM in 0.9 % Sodium Chloride 50 ML IV (01:43)
[2024-01-01] MEDS: 0.9 % Sodium Chloride 1,000 ML 999 ML IV (01:44)
[2024-01-01 01:54] LABS: Lactic Acid 0.9 mmol/L (0.5-2.0)
--- NOTE | 2024-01-01 04:22 | MHC.EDTECH ---
Pt found to be incontinent of stool. Pt was clean, new underpads placed and repositioned. Warm blankets given.
[2024-01-01 05:43] LABS: Alanine Aminotransferase 128 U/L (0-40); Albumin Level 2.3 g/dL (3.5-5.0); Alkaline Phosphatase 109 U/L (39-117); Anion Gap 14 (12-20); Aspartate Amino Transferase 99 U/L (5-37); Bilirubin Total 0.3 mg/dL (0.0-1.0); Blood Urea Nitrogen 59 mg/dL (9-16); Calcium 7.8 mg/dL (8.4-10.2); Carbon Dioxide 20 mmol/L (22-29); Chloride 101 mmol/L (96-108); Creatinine Clr Calc Pharmacy 17.9; Estimated Glomerular Filt Rate 20; Glucose Random 88 mg/dL (60-115); Sodium 130 mmol/L (135-145)
--- NOTE | 2024-01-01 06:08 | P.HPHOSP_ITS ---
History of Present Illness Date of Service: 01/01/24 Attending physician on admission: Broderick Rosado Chief Complaint: Nephrostomy tube dislodged Mariusz Kirkland is a 73 years old man with past medical history significant for bladder mass complicated with obstruction and hydronephrosis requiring right nephrostomy tube (placed 12/26/23), hypertension, hyperlipidemia, BPH, TBI, hypothyroidism, left lung mass in the upper lobe, paranoid schizophrenia, s/p peg tube placement and indwelling urinary catheter was brought to the emergency department from [facility] via EMS after his nephrostomy tube dislodged. HPI was difficult to obtain directly from the patient due to underlying psych issues. He did not report any pain, nausea or vomiting. In the ED, he was found to have normal vital signs. Blood workup was remarkable for mild leukocytosis of 11.9, hyponatremia of 130 and worsening creatinine. Transaminases are elevated but better than prior. No urinalysis obtained. Viral testing for COVID-19, influenza and RSV is negative. CXR showed no acute changes, tubular density in the left upper lobe seen on prior CT. ED tx: NS 1 L bolus, ceftriaxone 1 g, levofloxacin 500 mg IV Review of Systems 2 Review of Systems: Yes Unobtainable due to mental status PMFSH Medical History Lung mass Swallowing problem Pulmonary emphysema COVID-19 vaccine series completed History of COVID-19 Resides in residential facility History of falling Personal history of traumatic brain injury Other specified intracranial injury without loss of consciousness, subsequent encounter Paralytic gait Benign prostatic hyperplasia without lower urinary tract symptoms Pain in left hip Primary generalized (osteo)arthritis Constipation, unspecified Impulse disorder, unspecified Trichotillomania Alcohol dependence, uncomplicated Hyperlipidemia, unspecified Hypothyroidism, unspecified Weakness Unspecified lack of coordination Muscle weakness (generalized) Age-related nuclear cataract, bilateral Unspecified abnormalities of gait and mobility Personal history of COVID-19 Repeated falls Lefort i fracture, initial encounter for closed fracture Unsteadiness on feet Other abnormalities of gait and mobility Dysphagia, oropharyngeal phase Paranoid schizophrenia Family History Unknown No problems noted. Surgical History Status post AAA (abdominal aortic aneurysm) repair History of facial surgery Social History Household Members: Other Housing: Detention Housing Other:: [facility] Are you a primary critical care nurse specialist to a significant other at home: No Do you presently have visiting nurse or other home services: No Unable to assess alcohol history related to: Unknown Comment: sitter Patient Tobacco Use Status: Former Tobacco user Tobacco use type: Cigarette Cigarettes Per Day: 4 Years Smoked: 57 Smoked in Last 30 Days: No Use of substances other than those prescribed or required for medical reasons: No Advance Directives: Yes Advance Directives on File: Yes Advance Directives Date on File: 12/05/22 Do you have a plan to hurt others: No Plan Nutrition Risks: No Nutritional Risk service: No Current occupational status: disabled Meds Allergies Allergy/AdvReac Type Severity Reaction Status Date / Time cefpodoxime Allergy Intermediate Rash Verified 12/31/23 21:22 Active Medications: Current Medications Albuterol Sulfate (Albuterol Sulfate (0.083%) 2.5 Mg/3 Ml Vial.Neb) 2.5 mg INHALE Q2H PRN PRN Reason: Shortness of Breath/Wheezing Sodium Chloride (0.9 % Sodium Chloride Flush 3 Ml Syringe) [facility]ations ?Medication ?Instructions ?Recorded ?Confirmed ?Last Taken ?Type bisacodyl 10 mg rectal suppository 10 mg WI DAILY PRN Constipation 09/20/22 12/16/23 Unknown History (Dulcolax (bisacodyl)) sodium phosphates 19 gram-7 118 ml WI DAILY PRN Constipation 09/20/22 12/16/23 Unknown History gram/118 mL enema (Fleet Enema) lactulose 10 gram/15 mL oral 15 ml feeding tube BID 09/26/22 12/16/23 Unknown History solution levothyroxine 112 mcg tablet 112 mcg feeding tube DAILY@0600 09/26/22 12/16/23 Unknown History simvastatin 40 mg tablet 40 mg feeding tube BEDTIME 09/26/22 12/16/23 Unknown History nicotine 7 mg/24 hr daily 1 patch transdermal Q24H PRN 12/05/22 12/16/23 Unknown History transdermal patch Smoking Cessation polyvinyl alcohol 1.4 % eye drops 1 drp ophthalmic (eye) Q4H PRN Dry 12/05/22 12/16/23 Unknown History (Artificial Tears (polyvinyl Eyes alcohol)) sennosides 8.6 mg tablet (senna) 17.2 mg feeding tube DAILY PRN 12/05/22 12/16/23 Unknown History Constipation diazepam 2 mg tablet 3 mg feeding tube BID 10/03/23 12/16/23 Unknown History albuterol sulfate 90 mcg/actuation 2 puff inhalation Q4H PRN 10/13/23 12/16/23 Unknown History aerosol inhaler shortness of breath or wheezing bethanechol chloride 50 mg tablet 50 mg feeding tube BID 10/13/23 12/16/23 Unknown History perphenazine 8 mg tablet 8 mg feeding tube BID 10/13/23 12/16/23 Unknown History terazosin 5 mg capsule 5 mg feeding tube BEDTIME 10/13/23 12/16/23 Unknown History acetaminophen 325 mg tablet 650 mg feeding tube Q6H PRN Fever 12/16/23 12/16/23 Unknown History Or Pain Physical Exam 2 Vital Signs and Narrative: Vital Signs: Last Vital Signs Temp 97.7 F 01/01/24 04:08 Pulse 88 01/01/24 04:08 Resp 16 01/01/24 04:08 BP 134/80 01/01/24 04:08 Pulse Ox 97 01/01/24 04:08 O2 Del Method Room Air 01/01/24 04:08 BMI result Body Mass Index 22.3 Constitutional - Awake and Alert, No apparent distress. Afebrile. HEENT - PERRL. Normal sclerae. Heart - S1S2, RRR. Lungs - Normal lung expansion, Normal respiratory effort, No respiratory distress, CTA bilaterally Abdomen - NT / ND; +BS; No rebound or guarding - No CVA tenderness Extremities - no calf tenderness bilaterally, no swelling Skin - Warm/Dry. No hematomas. Neurological - Alert & oriented x3. Speech difficult to understand. Psychological - No agitation. Results Labs 12/31/23 22:09 01/01/24 04:54 Labs: Laboratory Results - last 24 hr 12/31/23 12/31/23 01/01/24 22:09 22:13 01:36 MCV 84.4 MCH 27.8 MCHC 33.0 RDW 15.4 Plt Count 179 MPV 10.6 Immature Gran % (Auto) 1.2 H Neut % (Auto) 80.1 H Lymph % (Auto) 8.9 L [place] % (Auto) 8.4 Eos % (Auto) 1.2 Baso % (Auto) 0.2 Lymph # (Auto) 1.1 L [place] # (Auto) 1.0 Eos # (Auto) 0.1 Baso # (Auto) 0.0 Abs Immat Gran (auto) 0.14 H Absolute Neuts (auto) 9.5 H Absolute Nucleated RBC 0.000 Nucleated RBC % (auto) 0.0 Anion Gap 13 Estim Creat Clear Calc 21.0 Estimated GFR 24 Random Glucose 94 Lactic Acid 0.9 Calcium 8.0 L D Total Bilirubin 0.4 AST 117 H ALT 142 H Alkaline Phosphatase 117 Total Protein 5.3 L Albumin 2.6 L Influenza Type A (PCR) NEGATIVE Influenza Type B (PCR) NEGATIVE RSV RNA Qual (PCR) NEGATIVE SARS-CoV-2 RNA (RT-PCR) NEGATIVE 01/01/24 04:54 MCV MCH MCHC RDW Plt Count MPV Immature Gran % (Auto) Neut % (Auto) Lymph % (Auto) [place] % (Auto) Eos % (Auto) Baso % (Auto) Lymph # (Auto) [place] # (Auto) Eos # (Auto) Baso # (Auto) Abs Immat Gran (auto) Absolute Neuts (auto) Absolute Nucleated RBC Nucleated RBC % (auto) Anion Gap 14 Estim Creat Clear Calc 17.9 Estimated GFR 20 Random Glucose 88 Lactic Acid Calcium 7.8 L Total Bilirubin 0.3 AST 99 H ALT 128 H Alkaline Phosphatase 109 Total Protein 5.0 L Albumin 2.3 L Influenza Type A (PCR) Influenza Type B (PCR) RSV RNA Qual (PCR) SARS-CoV-2 RNA (RT-PCR) Imaging Radiologist's Impressions: Impressions Chest X-Ray 12/31/23 22:18 IMPRESSION: No acute cardiopulmonary findings. Tubular density in the left upper lobe seen on prior chest CT 10/13/2023 is not well demonstrated radiographically. Assessment and Plan (1) Acute on chronic kidney failure: Qualifiers: Acute renal failure type: unspecified Chronic kidney disease stage: u nspecified stage Qualified Code(s): N17.9 - Acute kidney failure, unspecified; N18.9 - Chronic kidney disease, unspecified Status: Acute (2) Bladder mass: Status: Acute Plan Mariusz Kirkland is a 73 y/o man with PMHx significant for bladder mass complicated with obstruction and hydronephrosis requiring right nephrostomy tube (placed 12/26/23), cystoscopy, bilateral retrograde with stents placement admitted with: * Right nephrostomy tube dislodged. Admit to hospitalist service. ID consult for nephrostomy tube replacement. * Acute on chronic renal failure, likely multifactorial: left renal artery stenosis, hydronephrosis and bladder mass. Patient will require nephrostomy tube placement. To consider IV fluids after nephrostomy tube placement. Avoid nephrotoxic agents. Patient is to follow with vascular surgeon as an outpatient for renal artery stenosis. Continue to monitor renal function. * Bladder mass. Biopsy was recently obtained. Results are still pending. * Recent UTI secondary to Provedenxia and Enterococcus. Treated with ceftriaxone and Augmentin. Check urinalysis. * Essential hypertension. Continue to monitor. * Paranoid schizophrenia. Continue home meds. * Hyperlipidemia. Continue statin. * Hypothyroidism. Continue levothyroxine. * Left lung mass, upper lobe. Will need followup. * COPD not in acute exacerbation. Code status: Full DVT prophylaxis: SCDs Patient will need hospitalization for at least 2 midnights for acute on chronic renal failure therapy with right nephrectomy tube replacement. Patient will need close monitoring of renal function. Quality Stroke Does the patient have a stroke diagnosis?: No VTE Prior VTE?: No VTE Risk Level:: Medical - moderate - high VTE Device Contraindication: Treatment Not Indicated VTE Drug Contraindication: N/A - Med Ordered
--- NOTE | 2024-01-01 06:16 | MHC.EDTECH ---
0600 rounds: Pt clean/dry at this time. Vital signs taken.
--- NOTE | 2024-01-01 07:50 | PC.NURSE ---
Upon morning rounds with pt, pts g-tube noted to be dislodged next to him on the bed. Site observed, no drainage or redness noted. Sterile gauze placed over site and secured. Admitting provider notified, awaiting orders. Pt cleaned up and provided new linen. Denies pain or complaints.
[2024-01-01] MEDS: 0.9 % Sodium Chloride Flush 3 ML SYRINGE IVFLUSH (08:05)
--- NOTE | 2024-01-01 11:35 | P.PNIM_ITS ---
Subjective Subjective Date of Service: 01/01/24 Review of Systems Follow up pulled nephrostomy tube no pain or discomfort Physical Exam 2 Vital Signs: Vital Signs: Last Vital Signs Temp 97.4 F 01/01/24 07:53 Pulse 85 01/01/24 07:53 Resp 14 01/01/24 07:53 BP 126/75 01/01/24 07:53 Pulse Ox 96 01/01/24 07:53 O2 Del Method Room Air 01/01/24 07:53 BMI result Body Mass Index 22.3 Appearing in no acute distress lung sounds are clear to auscultation heart regular rate rhythm, clear S1, S2 positive bowel sounds, abdomen is soft, nontender neuro patient is alert x3, no focal deficits, thick speech, chronic Objective Data Active Medications Albuterol Sulfate (Albuterol Sulfate (0.083%) 2.5 Mg/3 Ml Vial.Neb) 2.5 mg INHALE Q2H PRN PRN Reason: Shortness of Breath/Wheezing Sodium Chloride (0.9 % Sodium Chloride Flush 3 Ml Syringe) 3 ml IVFLUSH QSHIFT [facility] Last Admin: 01/01/24 08:05 Dose: 3 ml Documented By: ODETTE Labs 12/31/23 22:09 01/01/24 13:30 Labs: Laboratory Results - last 24 hr 12/31/23 12/31/23 01/01/24 22:09 22:13 01:36 MCV 84.4 MCH 27.8 MCHC 33.0 RDW 15.4 Plt Count 179 MPV 10.6 Immature Gran % (Auto) 1.2 H Neut % (Auto) 80.1 H Lymph % (Auto) 8.9 L [place] % (Auto) 8.4 Eos % (Auto) 1.2 Baso % (Auto) 0.2 Lymph # (Auto) 1.1 L [place] # (Auto) 1.0 Eos # (Auto) 0.1 Baso # (Auto) 0.0 Abs Immat Gran (auto) 0.14 H Absolute Neuts (auto) 9.5 H Absolute Nucleated RBC 0.000 Nucleated RBC % (auto) 0.0 Anion Gap 13 Estim Creat Clear Calc 21.0 Estimated GFR 24 Random Glucose 94 Lactic Acid 0.9 Calcium 8.0 L D Total Bilirubin 0.4 AST 117 H ALT 142 H Alkaline Phosphatase 117 Total Protein 5.3 L Albumin 2.6 L Influenza Type A (PCR) NEGATIVE Influenza Type B (PCR) NEGATIVE RSV RNA Qual (PCR) NEGATIVE SARS-CoV-2 RNA (RT-PCR) NEGATIVE 01/01/24 04:54 MCV MCH MCHC RDW Plt Count MPV Immature Gran % (Auto) Neut % (Auto) Lymph % (Auto) [place] % (Auto) Eos % (Auto) Baso % (Auto) Lymph # (Auto) [place] # (Auto) Eos # (Auto) Baso # (Auto) Abs Immat Gran (auto) Absolute Neuts (auto) Absolute Nucleated RBC Nucleated RBC % (auto) Anion Gap 14 Estim Creat Clear Calc 17.9 Estimated GFR 20 Random Glucose 88 Lactic Acid Calcium 7.8 L Total Bilirubin 0.3 AST 99 H ALT 128 H Alkaline Phosphatase 109 Total Protein 5.0 L Albumin 2.3 L Influenza Type A (PCR) Influenza Type B (PCR) RSV RNA Qual (PCR) SARS-CoV-2 RNA (RT-PCR) Assessment and Plan (1) Acute UTI: Status: Acute (2) Acute on chronic kidney failure: Status: Acute Plan Mariusz Kirkland is a 73 y/o man with PMHx significant for bladder mass complicated with obstruction and hydronephrosis requiring right nephrostomy tube (placed 12/26/23), cystoscopy, bilateral retrograde with stents placement admitted with: Right nephrostomy tube dislodged. Admit to hospitalist service. IR for nephrostomy tube replacement. KELLY, likely multifactorial. unspecified left renal artery stenosis, hydronephrosis and bladder mass. Patient will require nephrostomy tube re-placement. Avoid nephrotoxic agents. Nephrology consultation pending hyponatremia check urine studies nephrology consultation pending Bladder mass. Biopsy was recently obtained. Results still pending. Recent UTI secondary to Provedenxia and Enterococcus. treated with ceftriaxone and Augmentin. Check urinalysis. Essential hypertension. Continue to monitor. Paranoid schizophrenia. Continue home meds. Hyperlipidemia. Continue statin. Hypothyroidism. Continue levothyroxine. Left lung mass, upper lobe. Will need followup. COPD not in acute exacerbation. Code status: Full Attending Dr. Tyler DVT prophylaxis: SCDs DISPO back to [facility] when medically clear Patient will need hospitalization for at least 2 midnights for acute on chronic renal failure therapy with right nephrectomy tube replacement. Patient will need close monitoring of renal function. Quality Stroke Does the patient have a stroke diagnosis?: No VTE Prior VTE?: No VTE Risk Level:: Medical - moderate - high VTE Device Contraindication: Treatment Not Indicated VTE Drug Contraindication: N/A - Med Ordered
--- NOTE | 2024-01-01 11:52 | PC.NURSE ---
Assumed care of this patient at 1100, patient resting quietly in bed no issues at this time, Provider Nathalia to reach out to IR to get patient on schedule for Peg tube / nephro tube replacement.
--- NOTE | 2024-01-01 12:07 | PC.NURSE ---
UA / Ur electrolytes ordered, manually removed sample from hyatt via irrigation syringe, urine is thick red tinged with numerous mucus threads.
--- NOTE | 2024-01-01 12:28 | PC.NURSE ---
Spoke to JULIANNA RN, they need to contact linda for consent, will try to get patient in for 2pm
[2024-01-01 12:37] LABS: Potassium Urine Random 7.9 mmol/L
[2024-01-01 12:40] LABS: Appearance Urine Turbid; Color Urine BROWN; Glucose Urine UA Negative (Negative); Leukocyte Esterase Urine Large (3+) (Negative); Nitrite Urine Positive (Negative); UMIC TRIGGER UACC YES; Urine Blood Large (3+) (Negative); Urine Ketones Negative (Negative); Urine Protein 300 (3+) mg/dL (Neg-Trace)
[2024-01-01 12:56] LABS: RBC Urine >20 /HPF (0-2); UACC Culture Trigger YES; WBC Urine >50 /HPF (0-5)
[2024-01-01 12:57] LABS: Bacteria Urine 4+ (None Seen); Hyaline Casts Urine 0-2 /LPF (0-2); Squamous Epithelial Cell Urine 0-2 /HPF (0-2)
[2024-01-01 13:46] LABS: Sodium 130 mmol/L (135-145)
--- NOTE | 2024-01-01 13:51 | PHA.MEDREC ---
Pharmacy Consult ? Medication Reconciliation Pharmacy has completed the medication reconciliation, list obtained from [facility].
--- NOTE | 2024-01-01 14:26 | PC.NURSE ---
pt poor historian admitted by obtaining info from chart , pt came from the ED with no belongings
--- NOTE | 2024-01-01 15:09 | PC.NURSE ---
Pt down to IR
--- NOTE | 2024-01-01 16:56 | PC.NURSE ---
returned from IR Peg tube and right nephrostomy tubes intact
--- NOTE | 2024-01-01 18:50 | PC.NURSE ---
Pt found on floor Incontinent of stool . Xavier Erik at bedside to asses pt . VSS pt denies injury at baseline neuro status , Stat Ct scan ordered .
--- NOTE | 2024-01-01 18:57 | PM.EVENT ---
Event Note Date of Service: 01/01/24 Event Note: 73 y/o man with PMHx significant for bladder mass complicated with obstruction and hydronephrosis requiring right nephrostomy tube (placed 12/26/23), cystoscopy, bilateral retrograde with stents placement admitted for dislodged right nephrostomy tube s/p replacement with KELLY found on the ground with unwitnessed fall around 640pm. He was covered in his own feces and very agitated, which is baseline. He is unable to follow commands at baseline, but pupils appear PERRLA and eyes appear to be tracking around room appropriately. Strength is symmetric and in tact. Will order stat head ct and bilateral hip/pelvis xray. 1mg ativan given prior to procedure due to baseline agitation which will obscure study results and possibly result in incorrect diagnosis. Time Spent With Patient Time: Total time managing care of this patient today ____ minutes.
[2024-01-01] MEDS: LORazepam 2 MG/ML VIAL 1 MG IVPUSH (19:21)
[2024-01-01] MEDS: Perphenazine 8 MG TABLET G-TUBE (22:10)
[2024-01-01] MEDS: Doxycycline Monohydrate 100 MG CAPSULE PO (22:10)
[2024-01-01] MEDS: Lactulose 20 GM/30 ML SOLUTION 10 GM G-TUBE (22:11)
[2024-01-01] MEDS: diazePAM 2 MG TABLET 3 MG G-TUBE (22:11)
[2024-01-02 03:29] VITALS: BP 126/63; PULSE 95; RESP 20; TEMP 36.2; O2SAT 98
--- NOTE | 2024-01-02 05:36 | PC.NURSE ---
Total output for nephrostomy tube overnight is 1800
[2024-01-02 06:45] LABS: Anion Gap 13 (12-20); Blood Urea Nitrogen 50 mg/dL (9-16); Calcium 8.9 mg/dL (8.4-10.2); Carbon Dioxide 22 mmol/L (22-29); Chloride 107 mmol/L (96-108); Estimated Glomerular Filt Rate 24; Glucose Random 83 mg/dL (60-115); Potassium 4.5 mmol/L (3.3-5.1); Sodium 137 mmol/L (135-145)
[2024-01-02 07:23] VITALS: BP 117/80; PULSE 93; RESP 14; TEMP 36.4; O2SAT 98
[2024-01-02] MEDS: diazePAM 2 MG TABLET 3 MG G-TUBE ×2 (09:22→19:41)
[2024-01-02] MEDS: Lactulose 20 GM/30 ML SOLUTION 10 GM G-TUBE ×2 (09:22→19:41)
[2024-01-02 09:26] VITALS: BP 117/80
[2024-01-02] MEDS: Doxazosin Mesylate 2 MG TABLET 4 MG G-TUBE (09:26)
[2024-01-02] MEDS: 0.9 % Sodium Chloride Flush 3 ML SYRINGE IVFLUSH ×2 (09:26→14:36)
[2024-01-02] MEDS: Doxycycline Monohydrate 100 MG CAPSULE PO ×2 (09:27→19:41)
[2024-01-02] MEDS: Perphenazine 8 MG TABLET G-TUBE ×2 (09:28→19:42)
[2024-01-02] MEDS: Atorvastatin Calcium 20 MG TABLET G-TUBE (09:28)
[2024-01-02] MEDS: levoFLOXacin 500 MG TABLET PO (09:28)
--- NOTE | 2024-01-02 09:44 | MHC.CM.PN ---
Addendum entered by Leonarda Lu 01/02/24 14:09: PT WAS MADE I/P. IMM DELIVERED TO [facility], WHITE COPY TO BE MAILED. Original Note: [facility] DELIVERED TO [facility] VIA TELEPHONE. YELLOW COPY TO BE MAILED TO [facility]. 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
[2024-01-02 10:57] VITALS: BMI 20.3
--- NOTE | 2024-01-02 11:02 | MHC.CLN ---
PT WITH LOT TECHNICIAN PEG FOR NUTRITION SUPPORT FAMILIAR WITH PT FROM PREVIOUS ADMISSION PT IS CURRENTLY NPO-PEG TUBE REPLACED BY IR WHEN TF TO RE-START; RECOMMEND JEVITY 1.0 AT MAX GOAL RATE 65ML/HR WITH 120ML FREE WATER FLUSHES Q 6 HRS TO PROVIDE 1654KCALS (30.8KCALS/KG), 69G PROTEIN (1.28G/KG), 1783ML TOTAL WATER FROM FORMULA AND FLUSHES (33ML/KG) MONITOR TOLERANCE, RESIDUALS AND LYTES SEE ALSO FULL CLINICAL NUTRITION ASSESSMENT
--- NOTE | 2024-01-02 11:03 | PM.CNNEP ---
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 HPI was difficult to obtain directly from the patient due to underlying psych issues. He did not report any pain, nausea or vomiting. Superimposed KELLY with serum creatinine of 3.06 with mild hyponatremia and hence the consultation Review of Systems Review of Systems Yes Unobtainable due to mental status PMFSH Past Medical History Medical History Lung mass Swallowing problem Pulmonary emphysema COVID-19 vaccine series completed History of COVID-19 Resides in care home facility History of falling Personal history of traumatic brain injury Other specified intracranial injury without loss of consciousness, subsequent encounter Paralytic gait Benign prostatic hyperplasia without lower urinary tract symptoms Pain in left hip Primary generalized (osteo)arthritis Constipation, unspecified Impulse disorder, unspecified Trichotillomania Alcohol dependence, uncomplicated Hyperlipidemia, unspecified Hypothyroidism, unspecified Weakness Unspecified lack of coordination Muscle weakness (generalized) Age-related nuclear cataract, bilateral Unspecified abnormalities of gait and mobility Personal history of COVID-19 Repeated falls Lefort i fracture, initial encounter for closed fracture Unsteadiness on feet Other abnormalities of gait and mobility Dysphagia, oropharyngeal phase Paranoid schizophrenia Family History Family History Unknown No problems noted. Surgical History Surgical History Status post AAA (abdominal aortic aneurysm) repair History of facial surgery Social History Social History Household Members: Other Housing: [facility] Housing Other:: [facility] Are you a primary adult care manager to a significant other at home: No Do you presently have visiting nurse or other home services: No Unable to assess alcohol history related to: Unknown Comment: 1:1 sitter Patient Tobacco Use Status: Former Tobacco user Tobacco use type: Cigarette Cigarettes Per Day: 4 Years Smoked: 57 Second Hand Smoke Exposure: No Advance Directives Date on File: 12/05/22 service: No Current occupational status: disabled Meds Allergies Allergy/AdvReac Type Severity Reaction Status Date / Time cefpodoxime Allergy Intermediate Rash Verified 12/31/23 21:22 Active Medications: Current Medications Albuterol Sulfate (Albuterol Sulfate (0.083%) 2.5 Mg/3 Ml Vial.Neb) 2.5 mg INHALE Q2H PRN PRN Reason: Shortness of Breath/Wheezing Albuterol Sulfate (Albuterol Sulfate 90 Mcg 8 Gm Inhaler) 2 puff INHALE Q4H PRN PRN Reason: shortness of breath or wheezing Atorvastatin Calcium (Atorvastatin Calcium 20 Mg Tablet) 20 mg G-TUBE DAILY [facility] Last Admin: 01/02/24 09:28 Dose: 20 mg Bisacodyl (Bisacodyl 10 Mg Supp.Rect) 10 mg W[place] DAILY PRN PRN Reason: Constipation Diazepam (Diazepam 2 Mg Tablet) 3 mg G-TUBE BID [facility] Last Admin: 01/02/24 09:22 Dose: 3 mg Doxazosin Mesylate (Doxazosin Mesylate 2 Mg Tablet) 4 mg G-TUBE DAILY [facility] Last Admin: 01/02/24 09:26 Dose: 4 mg Doxycycline Monohydrate (Doxycycline Monohydrate 100 Mg Capsule) 100 mg PO BID [facility] Stop: 01/06/24 22:00 Last Admin: 01/02/24 09:27 Dose: 100 mg Lactulose (Lactulose 20 Gm/30 Ml Solution) 10 gm G-TUBE BID [facility] Last Admin: 01/02/24 09:22 Dose: 10 gm Levofloxacin (Levofloxacin 500 Mg Tablet) 500 mg PO Q48H [facility] Stop: 01/05/24 10:00 Levothyroxine Sodium (Levothyroxine Sodium 112 Mcg Tablet) 112 mcg G-TUBE DAILY@0600 [facility] Last Admin: 01/02/24 06:17 Dose: Not Given Non-Formulary Medication (Bethanechol Chloride) 50 mg G-TUBE BID [facility] Perphenazine (Perphenazine 8 Mg Tablet) 8 mg G-TUBE BID [facility] Last Admin: 01/02/24 09:28 Dose: 8 mg Sodium Biphosphate/Sodium Phosphate (Sodium Phosphate,[place]-Dibasic 133 Ml Enema) 118 ml W[place] DAILY PRN PRN Reason: Constipation Sodium Chloride (0.9 % Sodium Chloride Flush 3 Ml Syringe) 3 ml IVFLUSH [facility] Last Admin: 01/02/24 09:26 Dose: 3 ml Home Medications ?Medication ?Instructions ?Recorded ?Confirmed ?Last Taken ?Type bisacodyl 10 mg rectal suppository 10 mg W[place] DAILY PRN Constipation 09/20/22 01/01/24 Unknown History (Dulcolax (bisacodyl)) sodium phosphates 19 gram-7 118 ml [place] DAILY PRN Constipation 09/20/22 01/01/24 Unknown History gram/118 mL enema (Fleet Enema) lactulose 10 gram/15 mL oral 15 ml feeding tube BID 09/26/22 01/01/24 Unknown History solution levothyroxine 112 mcg tablet 112 mcg feeding tube DAILY@0600 09/26/22 01/01/24 Unknown History simvastatin 40 mg tablet 40 mg feeding tube BEDTIME 09/26/22 01/01/24 Unknown History polyvinyl alcohol 1.4 % eye drops 1 drp ophthalmic (eye) Q4H PRN Dry 12/05/22 01/01/24 Unknown History (Artificial Tears (polyvinyl Eyes alcohol)) sennosides 8.6 mg tablet (senna) 17.2 mg feeding tube DAILY PRN 12/05/22 01/01/24 Unknown History Constipation diazepam 2 mg tablet 3 mg feeding tube BID 10/03/23 01/01/24 Unknown History albuterol sulfate 90 mcg/actuation 2 puff inhalation Q4H PRN 10/13/23 01/01/24 Unknown History aerosol inhaler shortness of breath or wheezing bethanechol chloride 50 mg tablet 50 mg feeding tube BID 10/13/23 01/01/24 Unknown History perphenazine 8 mg tablet 8 mg feeding tube BID 10/13/23 01/01/24 Unknown History terazosin 5 mg capsule 5 mg feeding tube BEDTIME 10/13/23 01/01/24 Unknown History acetaminophen 325 mg tablet 650 mg feeding tube Q6H PRN Fever 12/16/23 01/01/24 Unknown History Or Pain doxycycline hyclate 100 mg tablet 100 mg PO BID 01/01/24 01/01/24 Unknown History Physical Exam Vital Signs: Last Vital Signs Temp 97.5 F 01/02/24 07:23 Pulse 93 01/02/24 07:23 Resp 14 01/02/24 07:23 BP 117/80 01/02/24 09:26 Pulse Ox 98 01/02/24 07:23 O2 Del Method Room Air 01/02/24 07:23 BMI result Body Mass Index 20.3 Awake. Comfortable. Neck is supple. Mucosa moist. Lungs bilateral scattered rhonchi. Heart S1-S2 heard no gallop. Abdomen soft. Extremities no edema. No involuntary movements. No myoclonus. Results Lab Results 12/31/23 22:09 01/03/24 05:23 Lab results: Chemistry 12/31/23 01/01/24 01/01/24 22:09 04:54 13:30 Sodium 129 L 130 L 130 L Potassium 5.1 D 5.0 Carbon Dioxide 23 20 L BUN 54 H 59 H Creatinine 2.61 H 3.06 H Calcium 8.0 L D 7.8 L 01/02/24 05:53 Sodium 137 Potassium 4.5 Carbon Dioxide 22 BUN 50 H Creatinine 2.62 H Calcium 8.9 D Hematology 12/31/23 22:09 WBC 11.9 H Hgb 8.9 L Plt Count 179 Urinalysis 01/01/24 12:06 Urine Color BROWN Urine Appearance Turbid Urine pH 8.0 Ur Specific [place] 1.020 Urine Protein 300 (3+) H Urine Glucose (UA) Negative Urine Ketones Negative Urine Blood Large (3+) H Urine Nitrite Positive H Ur Leukocyte Esterase Large (3+) H Urine RBC >20 H Urine WBC >50 Ur Squamous Epith Cells 0-2 Hyaline Casts 0-2 Assessment and Plan (1) Obstructed, uropathy: Status: Acute (2) Acute on chronic kidney failure: Qualifiers: Acute renal failure type: unspecified Chronic kidney disease stage: unspecified stage Qualified Code(s): N17.9 - Acute kidney failure, unspecified; N18.9 - Chronic kidney disease, unspecified Status: Acute (3) Hyponatremia: Status: Acute Plan Elderly man with acute kidney injury superimposed on chronic kidney disease. Acute kidney injury was due to hypoperfusion superimposed on ongoing obstruction. At present renal function is improving. Serum creatinine is not at baseline yet. Hyponatremia stands corrected. Restrict oral free water intake. No indication for dialysis. Watch renal function closely. She will follow along with the team. Procedures Date of Service Date of Service: 01/07/24
--- NOTE | 2024-01-02 14:28 | PC.NURSE ---
Tube feeds initiated as per orders
[2024-01-02 15:10] VITALS: BP 115/76; PULSE 91; RESP 13; TEMP 36.2; O2SAT 98
--- NOTE | 2024-01-02 16:10 | HO.PM.IMPN ---
Subjective Subjective Date of Service: 01/02/24 Interval History: Seen and examined this morning Follow-up for KELLY; re-placement of nephrostomy tube and feeding tube Had unwitnessed fall 12/31 - follow-up imaging negative Patient awake, alert, appears comfortable Review of Systems Review of Systems: Yes all other systems are reviewed and are negative Constitutional Constitutional: Denies fever(s) Physical Exam Vital Signs: Vital Signs: Last Vital Signs Temp 97.1 F 01/02/24 15:10 Pulse 91 01/02/24 15:10 Resp 13 01/02/24 15:10 BP 115/76 01/02/24 15:10 Pulse Ox 98 01/02/24 15:10 O2 Del Method Room Air 01/02/24 15:10 BMI result Body Mass Index 20.3 Const: Other: Constitutional-cooperative, comfortable, no acute distress, awake, alert GI abdomen soft, nondistended, feeding tube in place with no surrounding erythema Holland catheter, right-sided nephrostomy tube in place Musculoskeletal-able to move all 4 extremities spontaneously Objective Data Active Medications Albuterol Sulfate (Albuterol Sulfate (0.083%) 2.5 Mg/3 Ml Vial.Neb) 2.5 mg INHALE Q2H PRN PRN Reason: Shortness of Breath/Wheezing Albuterol Sulfate (Albuterol Sulfate 90 Mcg 8 Gm Inhaler) 2 puff INHALE Q4H PRN PRN Reason: shortness of breath or wheezing Atorvastatin Calcium (Atorvastatin Calcium 20 Mg Tablet) 20 mg G-TUBE DAILY [facility] Last Admin: 01/02/24 09:28 Dose: 20 mg Documented By: TENZIN Bisacodyl (Bisacodyl 10 Mg Supp.Rect) 10 mg [place] DAILY PRN PRN Reason: Constipation Diazepam (Diazepam 2 Mg Tablet) 3 mg G-TUBE BID [facility] Last Admin: 01/02/24 09:22 Dose: 3 mg Documented By: TENZIN Doxazosin Mesylate (Doxazosin Mesylate 2 Mg Tablet) 4 mg G-TUBE DAILY [facility] Last Admin: 01/02/24 09:26 Dose: 4 mg Documented By: TENZIN Doxycycline Monohydrate (Doxycycline Monohydrate 100 Mg Capsule) 100 mg PO BID [facility] Stop: 01/06/24 22:00 Last Admin: 05/30/24 09:27 Dose: 100 mg Documented By: TENZIN Lactulose (Lactulose 20 Gm/30 Ml Solution) 10 gm G-TUBE BID [facility] Last Admin: 01/02/24 09:22 Dose: 10 gm Documented By: TENZIN Levofloxacin (Levofloxacin 500 Mg Tablet) 500 mg PO Q48H [facility] Stop: 01/05/24 10:00 Levothyroxine Sodium (Levothyroxine Sodium 112 Mcg Tablet) 112 mcg G-TUBE DAILY@0600 [facility] Last Admin: 01/02/24 06:17 Dose: Not Given Documented By: QASIM Non-Admin Reason: patient smacking RN hand away, scream no Non-Formulary Medication (Bethanechol Chloride) 50 mg G-TUBE BID [facility] Perphenazine (Perphenazine 8 Mg Tablet) 8 mg G-TUBE BID [facility] Last Admin: 01/02/24 09:28 Dose: 8 mg Documented By: TENZIN Sodium Biphosphate/Sodium Phosphate (Sodium Phosphate,[place]-Dibasic 133 Ml Enema) 118 ml [place] DAILY PRN PRN Reason: Constipation Sodium Chloride (0.9 % Sodium Chloride Flush 3 Ml Syringe) 3 ml IVFLUSH QSHIFT [facility] Last Admin: 01/02/24 14:36 Dose: 3 ml Documented By: TENZIN Labs 12/31/23 22:09 01/02/24 05:53 Labs: Laboratory Results - last 24 hr 01/02/24 05:53 Hold Purple Top SEE NOTE Anion Gap 13 Estim Creat Clear Calc 19.0 Estimated GFR 24 Random Glucose 83 Calcium 8.9 D Microbiology Microbiology Results: Microbiology 01/01/24 Unknown Urine Culture - Final Urine Catheterized - Holland Catheter No growth. 01/01/24 01:40 Blood Culture - Preliminary Blood - Venous No growth after 24 hours. 01/01/24 01:36 Blood Culture - Preliminary Blood - Venous No growth after 24 hours. Assessment and Plan (1) Hyponatremia: Status: Acute Plan Mariusz Kirkland is a 73 y/o man with PMHx significant for bladder mass complicated with obstruction and hydronephrosis requiring right nephrostomy tube (placed 12/26/23), cystoscopy, bilateral retrograde with stents placement admitted with: Right nephrostomy tube dislodged. Admit to hospitalist service. nephrostomy tube replacement by IR 12/31 Feeding tube dislodged Replaced by IR 12/31 Resume tube feedings KELLY, likely multifactorial. unspecified left renal artery stenosis, hydronephrosis and bladder mass. Nephrostomy tube replaced as above Avoid nephrotoxic agents. Nephrology following hyponatremia resolved Bladder mass. Biopsy was recently obtained. Results still pending. Recent UTI secondary to Provedenxia and Enterococcus. treated with ceftriaxone and Augmentin - returned from facility on doxy and levaquin repeat urine culture negative Essential hypertension. Continue to monitor. Paranoid schizophrenia. Continue home meds. Hyperlipidemia. Continue statin. Hypothyroidism. Continue levothyroxine. Left lung mass, upper lobe. Will need followup outpatient COPD not in acute exacerbation. Code status: Full Attending Dr. Tyler DVT prophylaxis: SCDs DISPO back to [facility] when medically clear Requires ongoing inpatient stay for management of acute on chronic renal failure therapy with right nephrectomy tube replacement. Patient will need close monitoring of renal function. Quality Stroke Does the patient have a stroke diagnosis?: No VTE Prior VTE?: No VTE Risk Level:: Medical - moderate - high VTE Device Contraindication: Treatment Not Indicated VTE Drug Contraindication: N/A - Med Ordered
[2024-01-02] MEDS: 0.9 % Sodium Chloride 1,000 ML 80 ML IVCONT (16:55)
[2024-01-02 20:00] VITALS: BP 123/64; PULSE 86; RESP 13; TEMP 36.2; O2SAT 99
[2024-01-03 03:04] VITALS: BP 117/71; PULSE 100; RESP 16; TEMP 36.4; O2SAT 98
[2024-01-03] MEDS: Levothyroxine Sodium 112 MCG TABLET G-TUBE (05:49)
[2024-01-03 06:38] LABS: Anion Gap 9 (12-20); Blood Urea Nitrogen 43 mg/dL (9-16); Calcium 8.7 mg/dL (8.4-10.2); Carbon Dioxide 25 mmol/L (22-29); Chloride 111 mmol/L (96-108); Creatinine Clr Calc Pharmacy 27.2; Estimated Glomerular Filt Rate 36; Glucose Random 122 mg/dL (60-115); Potassium 4.4 mmol/L (3.3-5.1); Sodium 141 mmol/L (135-145)
[2024-01-03 07:25] VITALS: BP 131/77; PULSE 100; RESP 18; TEMP 36.4; O2SAT 99
[2024-01-03] MEDS: Doxycycline Monohydrate 100 MG CAPSULE PO (09:36)
[2024-01-03] MEDS: Perphenazine 8 MG TABLET G-TUBE (09:37)
[2024-01-03] MEDS: Atorvastatin Calcium 20 MG TABLET G-TUBE (09:38)
[2024-01-03 09:39] VITALS: BP 131/77
[2024-01-03] MEDS: 0.9 % Sodium Chloride Flush 3 ML SYRINGE IVFLUSH (09:39)
[2024-01-03] MEDS: Doxazosin Mesylate 2 MG TABLET 4 MG G-TUBE (09:39)
[2024-01-03] MEDS: diazePAM 2 MG TABLET 3 MG G-TUBE (09:39)
--- NOTE | 2024-01-03 09:46 | P.PNNP_ITS ---
Subjective Subjective Date of Service: 01/03/24 Interval history: Events noted. Nonoliguric Physical Exam 2 Vital Signs: Vital Signs: Last Vital Signs Temp 97.6 F 01/03/24 07:25 Pulse 100 01/03/24 07:25 Resp 18 01/03/24 07:25 BP 131/77 01/03/24 07:25 Pulse Ox 99 01/03/24 07:25 O2 Del Method Room Air 01/03/24 07:25 BMI result Body Mass Index 20.3 Const: Other: Constitutional-cooperative, comfortable, no acute distress, awake, alert GI abdomen soft, nondistended, feeding tube in place with no surrounding erythema Holland catheter, right-sided nephrostomy tube in place Musculoskeletal-able to move all 4 extremities spontaneously Objective Data Labs 12/31/23 22:09 01/03/24 05:23 Labs: Laboratory Results - last 24 hr 01/03/24 05:23 Hold Purple Top SEE NOTE Sodium 141 Potassium 4.4 Chloride 111 H Carbon Dioxide 25 Anion Gap 9 L BUN 43 H Creatinine 1.83 H Estim Creat Clear Calc 27.2 Estimated GFR 36 Random Glucose 122 H Calcium 8.7 Microbiology Microbiology Results: Microbiology 01/01/24 01:40 Blood - Venous Blood Culture - Preliminary No growth after 48 hours. 01/01/24 01:36 Blood - Venous Blood Culture - Preliminary No growth after 48 hours. 01/01/24 Unknown Urine Catheterized - Holland Catheter Urine Culture - Final No growth. Procedures Date of Service Date of Service: 01/03/24 Assessment & Plan Assessment and plan (1) Obstructed, uropathy: Status: Acute (2) Acute on chronic kidney failure: Status: Acute (3) Hyponatremia: Status: Acute Plan Elderly man with acute kidney injury superimposed on chronic kidney disease. Acute kidney injury was due to hypoperfusion superimposed on ongoing obstruction. At present renal function is improving. Serum creatinine is not at baseline yet. Hyponatremia stands corrected. Restrict oral free water intake. No indication for dialysis. Watch renal function closely. She will follow along with the team. Time Spent With Patient Time: Total time managing care of this patient today ____ minutes. Progress Note: Quality Stroke Does the patient have a stroke diagnosis?: No
[2024-01-03] MEDS: Lactulose 20 GM/30 ML SOLUTION 10 GM G-TUBE (09:55)
--- NOTE | 2024-01-03 10:11 | P.DS_ITS ---
DS: Providers Provider Date of Service: 01/03/24 Date of admission: 01/02/24 12:44 Date of discharge: 01/03/24 Primary care physician: Jeffrey Delatorre DO Consults: 01/01/24 11:38 Consult to Nephrology Routine Consulting Provider: [facility] Reason for consultation: kelly on ckd Attending physician on discharge: Jose De Jesus Tyler Discharging clinician: Sarah Bender DS: Diagnosis Discharge Diagnosis (1) Hyponatremia: Status: Acute DS: Summary Hospital Course Hospital Course: From H&P on the day of admission Mariusz Kirkland is a 73 years old man with past medical history significant for bladder mass complicated with obstruction and hydronephrosis requiring right nephrostomy tube (placed 12/26/23), hypertension, hyperlipidemia, BPH, TBI, hypothyroidism, 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 HPI was difficult to obtain directly from the patient due to underlying psych issues. He did not report any pain, nausea or vomiting. In the ED, he was found to have normal vital signs. Blood workup was remarkable for mild leukocytosis of 11.9, hyponatremia of 130 and worsening creatinine. Transaminases are elevated but better than prior. No urinalysis obtained. Viral testing for COVID-19, influenza and RSV is negative. CXR showed no acute changes, tubular density in the left upper lobe seen on prior CT. ED tx: NS 1 L bolus, ceftriaxone 1 g, levofloxacin 500 mg IV Right nephrostomy tube dislodged. nephrostomy tube replacement by IR 12/31. Capped 01/01. Renal function improved. Feeding tube dislodged Replaced by IR 12/31 Resumed tube feedings and tolerating well KELLY on CKD3 likely multifactorial. unspecified left renal artery stenosis, hydronephrosis and bladder mass. Nephrology following Nephrostomy tube replaced as above. Creatinine trending down to 1.83. Recommend outpatient follow-up hyponatremia resolved Bladder mass. Biopsy was recently obtained. Results still pending. Recent UTI secondary to Provedenxia and Enterococcus. treated with ceftriaxone and Augmentin - returned from facility on doxy and levaquin repeat urine culture negative. Continued on antibiotics as prescribed on pre vious admission Left lung mass, upper lobe. Seen on previous admission. Outpatient follow-up recommended Time Attestation Discharge Coordination Time (in mins): 36 Quality: Safe Use of Opioids Does Pt have an Active Cancer Diagnosis on the Problem List?: No Quality: Stroke Does the patient have a stroke diagnosis?: No Physical Exam Vital Signs: Vital Signs: Last Vital Signs Temp 97.6 F 01/03/24 07:25 Pulse 100 01/03/24 07:25 Resp 18 01/03/24 07:25 BP 131/77 01/03/24 09:39 Pulse Ox 99 01/03/24 07:25 O2 Del Method Room Air 01/03/24 07:25 BMI result Body Mass Index 20.3 Const: Other: Constitutional-cooperative, comfortable, no acute distress, awake, alert GI abdomen soft, nondistended, feeding tube in place with no surrounding erythema Holland catheter, right-sided nephrostomy tube in place Musculoskeletal-able to move all 4 extremities spontaneously DS: Data Data Completed and Pending Completed studies during hospitalization [Text1]: Procedures Drainage of Right Kidney Pelvis with Drainage Device, Percutaneous Approach (12/16/23) Introduction of Vasopressor into Peripheral Vein, Percutaneous Approach (08/28/23) Restriction of Abdominal Aorta with Intraluminal Device, Percutaneous Approach (12/24/22) Labs on day of discharge: Laboratory Results - last 24 hr 01/03/24 05:23 Hold Purple Top SEE NOTE Sodium 141 Potassium 4.4 Chloride 111 H Carbon Dioxide 25 Anion Gap 9 L BUN 43 H Creatinine 1.83 H Estim Creat Clear Calc 27.2 Estimated GFR 36 Random Glucose 122 H Calcium 8.7 Preliminary micro results at discharge 01/01/24 01:40 Blood Culture - Preliminary Blood - Venous No growth after 48 hours. 01/01/24 01:36 Blood Culture - Preliminary Blood - Venous No growth after 48 hours. Discharge Plan Discharge Patient Disposition: Xfer [facility] Discharge Diagnosis: Dislodged nephrostomy tube, dislodged feeding tube Hyponatremia Referrals: [facility] [Outside] - 1 Week (RESUMPTION OF LONG-TERM CARE) Jeffrey Delatorre DO [Primary Care Provider] - 1 Week Discharge Medications: Continued acetaminophen 325 mg Tablet 650 mg feeding tube Q6H PRN (Reason: Fever Or Pain) Rx Instructions: DO NOT EXCEED 3 GRAMS IN 24 HOURS perphenazine 8 mg tablet 8 mg feeding tube BID terazosin 5 mg capsule 5 mg feeding tube BEDTIME bethanechol chloride 50 mg tablet 50 mg feeding tube BID albuterol sulfate 90 mcg/actuation HFA aerosol inhaler 2 puff inhalation Q4H PRN (Reason: shortness of breath or wheezing) lactulose 10 gram/15 mL solution 15 ml feeding tube BID simvastatin 40 mg tablet 40 mg feeding tube BEDTIME levothyroxine 112 mcg tablet 112 mcg feeding tube DAILY@0600 bisacodyl [Dulcolax (bisacodyl)] 10 mg suppository 10 mg [place] DAILY PRN (Reason: Constipation) Rx Instructions: USE IF SENNA IS INEFFECTIVE Fleet Enema 19-7 gram/118 mL enema 118 ml [place] DAILY PRN (Reason: Constipation) polyvinyl alcohol [Artificial Tears (polyvin alc)] 1.4 % drops 1 drp ophthalmic (eye) Q4H PRN (Reason: Dry Eyes) sennosides [senna] 8.6 mg tablet 17.2 mg feeding tube DAILY PRN (Reason: Constipation) diazepam 2 mg tablet 3 mg feeding tube BID Discharge Orders: Discharge Order (Routine); Ordered 01/03/24 Ordered By: Sarah Bender Activity on Discharge: As tolerated Stand Alone Forms: Patient Portal Discharge page Print Language: Surinamese Care Plan Goals: See below Health Concerns: Dislodged nephrostomy tube and feeding tube Hyponatremia - resolved Previously diagnosed urinary tract infection KELLY on CKD 3 Plan of Treatment: Feeding tube replaced, tolerating tube feeds Nephrostomy tube replaced, capped. KELLY on CKD 3. Renal function improved with creatinine of 1.83 on day of discharge UTI diagnosed on previous admission. Continue antibiotics as previously prescribed Assessment: See discharge summary Discharge Date/Time: 01/03/24 15:39
--- NOTE | 2024-01-03 10:35 | P.CDIM_ITS ---
PROVIDER RESPONSE TEXT: To clarify, the appropriate diagnosis supported by the clinical indicators: Acute renal failure on Chronic Kidney Disease (CKD) QUERY TEXT: PHYSICIAN'S DOCUMENTATION REQUEST Date of Query: 01/03/2024 07:53 AM EDT Patient Name: Mariusz Kirkland Admit Date: 01/02/2024 Dear Sarah Bender, A review of the medical record indicates additional documentation may be needed. Please review below and update the documentation accordingly. Clinical Indicators: KELLY superimposed on CKD, at present renal function is improving. Requires ongoing inpatient stay for management of acute on chronic renal failure therapy with right n ephrectomy tube replacement. Please clarify which of the following accurately represents the patient's stage of noted CKD if known : Acute renal failure on Chronic Kidney Disease (CKD) CKD, please provide stage 1, 2, 3a, 3b, 4 etc. Other (explain) Clinically unable to determine (explain) Thank you, Eunice Anna, CCS, CDIS Use of terms such as suspected, likely, concern for, or probable (associated with a specific diagnosi s that is being evaluated, monitored, or treated as if it exists) are acceptable and can be coded in the inpatient se tting, when documented at the time of discharge. Please use your independent medical judgment in providing your response. THIS QUERY IS PART OF THE PERMANENT MEDICAL RECORD
--- NOTE | 2024-01-03 11:01 | MHC.CM.PN ---
Addendum entered by Leonarda Lu 01/03/24 11:21: GUARDIAN RITCHIE DARA UPDATED ON TODAY'S DC. Original Note: DP: PT HAS BEEN MEDICALLY CLEARED FOR DC BACK TO [facility] FOR [facility] OF [facility].. [facility] AUTH FORM COMPLETED ON-LINE. RN AWARE AND CENTER UPDATED. BLS TRANSPORT BOOKED FOR 1:30 PM VIA [facility].
== END 2024-01-03 15:39 | disposition home or self-care (01) | DRG 699 ==
LOC: HO.ED 23:19 → HO.EDOVER 01-01 01:48 → HO.S3 01-01 13:05
PROVIDERS: Nurse Practitioner Acute Care; Physician Assistant Surgical; Radiology Vascular & Interventional Radiology; Admitting Provider Internal Medicine; Emergency Provider Internal Medicine; PCP Hospitalist; Visit Provider Physician Assistant Medical
PROC: 0DH63UZ Insertion of Feeding Device into Stomach, Percutaneous Approach (ICD-10-PCS; principal; 2024-01-01 15:30)
DX: T83.022A Displacement of nephrostomy catheter, initial encounter (principal); E87.1 Hypo-osmolality and hyponatremia; F20.0 Paranoid schizophrenia; N17.9 Acute kidney failure, unspecified; N13.30 Unspecified hydronephrosis; K94.23 Gastrostomy malfunction; I12.9 Hypertensive chronic kidney disease with stage 1 through stage 4 chronic kidney disease, or unspecified chronic kidney disease; N18.9 Chronic kidney disease, unspecified; J44.9 Chronic obstructive pulmonary disease, unspecified; E03.9 Hypothyroidism, unspecified; N32.9 Bladder disorder, unspecified; R91.8 Other nonspecific abnormal finding of lung field; E78.5 Hyperlipidemia, unspecified; I70.1 Atherosclerosis of renal artery; Z20.822 Contact with and (suspected) exposure to COVID-19; Z87.820 Personal history of traumatic brain injury; Z87.440 Personal history of urinary (tract) infections; Z87.891 Personal history of nicotine dependence; Z79.890 Hormone replacement therapy; Z79.899 Other long term (current) drug therapy
CPT/HCPCS: 0241U; 36415; 49440; 50432; 70450; 71045; 73521; 74018; 80048; 80053; 81001; 82436; 83605; 84133; 84295; 84300; 85025; 87040; 87086; 99152; 99221; 99285; C1769; C1887; C1892; C1894; C2625; J0696; J1956; J2060

== ENCOUNTER → 2024-01-01 01:42 | Outpatient (BNV) | payer MEDICARE, MEDICAID, SELFPAY | PROVIDERS: Admitting Provider Internal Medicine; Emergency Provider Internal Medicine; Visit Provider Internal Medicine | DX: E87.1 Hypo-osmolality and hyponatremia (principal) | CPT/HCPCS: 99223; 99232; 99239; 99499 ==

== ENCOUNTER → 2024-01-01 15:12 | Outpatient (BNV) | payer MEDICARE, MEDICAID, SELFPAY | PROVIDERS: Admitting Provider Internal Medicine; Emergency Provider Internal Medicine; PCP Hospitalist; Visit Provider Radiology Vascular & Interventional Radiology | DX: N17.9 Acute kidney failure, unspecified (principal); N13.9 Obstructive and reflux uropathy, unspecified | CPT/HCPCS: 49440; 50433; 99152 ==

== ENCOUNTER → 2024-01-02 12:44 | Outpatient (BNV) | payer MEDICARE, MEDICAID, SELFPAY | PROVIDERS: Admitting Provider Internal Medicine; Emergency Provider Internal Medicine; PCP Hospitalist; Visit Provider Internal Medicine Hypertension Specialist | DX: N13.9 Obstructive and reflux uropathy, unspecified (principal); N17.9 Acute kidney failure, unspecified; N18.9 Chronic kidney disease, unspecified; E87.1 Hypo-osmolality and hyponatremia | CPT/HCPCS: 99232 ==

== ENCOUNTER 2024-01-14 14:50 | Outpatient (AMB) | payer MEDICARE, MEDICAID, SELFPAY ==
--- NOTE | 2024-01-14 14:50 | HO.NEPHOV ---
Vital Signs 01/14/24 14:56 Weight 116 lb BP 76/50 L Blood Pressure Location Rt brachial Position Sitting Pulse 110 H Pulse Source Pulse Oximeter Pulse Oximetry (%) 97 Oxygen Delivery Method Room Air Intake [place] 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 He had KELLY and hypernatremia due to free water deficit. Both were corrected. He is currently here in the office for follow-up. Accompanied by a caregiver [facility] Medical History Lung mass Swallowing problem Pulmonary emphysema COVID-19 vaccine series completed History of COVID-19 Resides in intermediate facility History of falling Personal history of traumatic brain injury Other specified intracranial injury without loss of consciousness, subsequent encounter Paralytic gait Benign prostatic hyperplasia without lower urinary tract symptoms Pain in left hip Primary generalized (osteo)arthritis Constipation, unspecified Impulse disorder, unspecified Trichotillomania Alcohol dependence, uncomplicated Hyperlipidemia, unspecified Hypothyroidism, unspecified Weakness Unspecified lack of coordination Muscle weakness (generalized) Age-related nuclear cataract, bilateral Unspecified abnormalities of gait and mobility Personal history of COVID-19 Repeated falls Lefort i fracture, initial encounter for closed fracture Unsteadiness on feet Other abnormalities of gait and mobility Dysphagia, oropharyngeal phase Paranoid schizophrenia Surgical History Status post percutaneous abdominal aortic aneurysm (AAA) repair Status post AAA (abdominal aortic aneurysm) repair History of facial surgery Family History Unknown No problems noted. Social History Household Members: Other Housing: [facility]way Housing Other:: [facility] Are you a primary human services care specialist to a significant other at home: No Do you presently have visiting nurse or other home services: No Unable to assess alcohol history related to: Unknown Comment: 1:1 sitter Patient Tobacco Use Status: Former Tobacco user Tobacco use type: Cigarette Cigarettes Per Day: 4 Years Smoked: 57 Second Hand Smoke Exposure: No Advance Directives Date on File: 12/05/22 service: No Current occupational status: disabled Physical Exam Vital Signs: Last Vital Signs Pulse 110 H 01/14/24 14:56 BP 76/50 L 01/14/24 14:56 Pulse Ox 97 01/14/24 14:56 Oxygen Delivery Method Room Air 01/14/24 14:56 Awake. Comfortable. Neck is supple. Mucosa moist. Lungs bilateral scattered rhonchi. Heart S1-S2 heard no gallop. Abdomen soft. Extremities no edema. No involuntary movements. No myoclonus. Results Reviewed Nephrology Results: Hgb 8.9 g/dl (14.0-18.0) L 12/31/23 WBC 11.9 X10*3/uL (4.8-10.8) H 12/31/23 Plt Count 179 X10*3/uL (160-400) 12/31/23 Sodium 141 mmol/L (135-145) 01/03/24 Potassium 4.4 mmol/L (3.3-5.1) 01/03/24 Chloride 111 mmol/L (96-108) H 01/03/24 Carbon Dioxide 25 mmol/L (22-29) 01/03/24 BUN 43 mg/dL (9-16) H 01/03/24 Creatinine 1.83 mg/dL (0.5-1.4) H 01/03/24 Calcium 8.7 mg/dL (8.4-10.2) 01/03/24 Urine Protein 300 (3+) mg/dL (Neg-Trace) H 01/01/24 Renal US 12/19/23 Assessment & Plan Assessment & Plan (1) Acute on chronic kidney failure: Code(s): N17.9 - Acute kidney failure, unspecified; N18.9 - Chronic kidney disease, unspecified Category: Medical Qualifiers: Acute renal failure type: unspecified Chronic kidney disease stage: unspecified stage Qualified Code(s): N17.9 - Acute kidney failure, unspecified; N18.9 - Chronic kidney disease, unspecified Plan . KELLY superimposed on CKD. KELLY was primarily due to obstructive uropathy. There was a component of volume depletion. Renal function is improving and creatinine is down to 1.5 mg/dL. He has a chronic indwelling catheter. Hypernatremia due to free water deficit. Stance corrected recent serum sodium was in the normal range. Anemia which is multifactorial follow iron stores. No indication for erythropoietin injections yet. Hypotension. Currently asymptomatic. Check cortisol levels. The systolic blood pressure stays less than 80 mm Hg he will benefit from midodrine 5 mg p.o. b.i.d.. Coding Level of Care Code Est Pt Level 4 (47754) Diagnoses Acute renal failure superimposed on chronic kidney disease, unspecified acute renal failure type, unspecified CKD stage N17.9; N18.9 Acute renal failure type: unspecified Chronic kidney disease stage: unspecified stage
[2024-01-14 14:56] VITALS: BP 76/50; PULSE 110; O2SAT 97
== END 2024-01-14 15:14 | disposition home or self-care (01) ==
PROVIDERS: PCP Hospitalist; Visit Provider Internal Medicine Hypertension Specialist
DX: N17.9 Acute kidney failure, unspecified (principal); N18.9 Chronic kidney disease, unspecified
CPT/HCPCS: 99214

== ENCOUNTER → 2024-01-14 14:50 | Outpatient (BNVA) | payer MEDICARE, MEDICAID, SELFPAY | PROVIDERS: PCP Hospitalist; Visit Provider Internal Medicine Hypertension Specialist | DX: N17.9 Acute kidney failure, unspecified (principal); N18.9 Chronic kidney disease, unspecified; Z93.6 Other artificial openings of urinary tract status | CPT/HCPCS: 99212 ==

== ENCOUNTER 2024-01-30 14:21 | Outpatient (AMB) | payer MEDICARE, MEDICAID, SELFPAY ==
--- NOTE | 2024-01-30 14:51 | A.OFFVIS_ITS ---
Vital Signs 01/30/24 14:51 Weight 116 lb Intake Visit Reasons: 2w ED f/u AAA Intake Note: follow up ED for high grade left renal artery stenosis w/ hx of AAA repair 12/24/22. Pt has no complaints Accompanied by: [employer] employee Allergies cefpodoxime Allergy (Intermediate, Verified 01/14/24 14:57) Rash lactose-reduced food [From Jevity] Allergy (Unknown, Verified 01/30/24 15:00) Unknown HPI HPI 2w ED f/u AAA: Details: 73-year-old gentleman presents to me for follow-up regarding abdominal aortic aneurysm and left renal artery stenosis. I have known rock for a period of time and it appears that he is slowly deteriorating. He would actually undergone endovascular aneurysm repair with us on 12/24/2022. Did have a left renal artery high-grade stenosis. At the current time he appears to be stable. He has had no significant interval changes. Although difficult to ascertain his review of systems seems to be doing relatively okay and denies any discomfort. [facility] Medical History (Updated 01/30/24 @ 16:44 by Rodrigo Weir MD) AAA (abdominal aortic aneurysm) without rupture Hyponatremia Acute UTI Obstructed, uropathy Acute on chronic kidney failure Bladder mass Acute renal failure Pulmonary nodules COPD (chronic obstructive pulmonary disease) Encounter for screening colonoscopy Lung mass Swallowing problem Pulmonary emphysema COVID-19 vaccine series completed History of COVID-19 Resides in senior living facility History of falling Personal history of traumatic brain injury Other specified intracranial injury without loss of consciousness, subsequent encounter Paralytic gait Benign prostatic hyperplasia without lower urinary tract symptoms Pain in left hip Primary generalized (osteo)arthritis Constipation, unspecified Impulse disorder, unspecified Trichotillomania Alcohol dependence, uncomplicated Hyperlipidemia, unspecified Hypothyroidism, unspecified Weakness Unspecified lack of coordination Muscle weakness (generalized) Age-related nuclear cataract, bilateral Unspecified abnormalities of gait and mobility Personal history of COVID-19 Repeated falls Lefort i fracture, initial encounter for closed fracture Unsteadiness on feet Other abnormalities of gait and mobility Dysphagia, oropharyngeal phase Paranoid schizophrenia Surgical History Status post percutaneous abdominal aortic aneurysm (AAA) repair Status post AAA (abdominal aortic aneurysm) repair History of facial surgery Family History Unknown No problems noted. Social History (Updated 01/30/24 @ 15:02 by VINNIE Langford) Household Members: Other Housing: Jail Housing Other:: [facility] Are you a primary care program resident to a significant other at home: No Do you presently have visiting nurse or other home services: No Unable to assess alcohol history related to: Unknown Comment: 1:1 sitter Patient Tobacco Use Status: Current everyday Tobacco user Tobacco use type: Cigarette Cigarettes Per Day: 4 Years Smoked: 57 Second Hand Smoke Exposure: No Advance Directives Date on File: 12/05/22 service: No Current occupational status: disabled Review of Systems Const All systems reviewed & are unremarkable except as noted in HPI and below Reports no additional complaints ENT Reports Normal hearing present Card Denies chest pain, Denies chest pain at rest, Denies chest pain with activity and Denies pedal edema Resp Denies cough GI Denies abdominal pain Musc Denies abnormal gait, Denies muscle cramps and Denies radiating pain into limb Skin/Breast Denies skin ulcer and Denies wounds Neuro Reports Normal hearing present and Denies abnormal gait Psych Reports no additional complaints Physical Exam Const General: cooperative, healthy appearing and comfortable Orientation/consciousness: oriented to person, oriented to place and oriented to time HEENT Head: Yes normal to inspection Neck Neck: Yes normal visual inspection Carotids: no bruits Chest Chest palpation & inspection: normal inspection of the chest Resp Effort & Inspection: normal respiratory effort and able to speak in complete sentences Auscultation: clear to auscultation bilaterally, no crackles, no rales, no rhonchi and no wheezes Cardio Rate: regular rate Rhythm: regular rhythm Heart sounds: S1 normal heart sound present and S2 normal heart sound present Bruits: no carotid bruits Peripheral pulses: Peripheral pulses 2+ throughout GI Inspection: Yes normal to inspection Skin Wounds: no wounds Hair: normal Neuro General: oriented to person, oriented to place and oriented to time Cranial nerves: Yes CN's II-XII intact bilaterally and Yes Normal hearing present Cognition (Neuro): normal cognition Motor exam (neuro): 5/5 motor strength present throughout Extrem Other: venous exam: No significant superficial varicosities or spider telangiectasias, minimal edema General: No clubbing, No cyanosis and No edema Psych Appearance: grossly normal Mental Status: mental status grossly normal Speech and movement: Normal speech and movement present Results Reviewed Results Reviewed: CT scan from 12/20/2023 demonstrates appropriate placed endograft. Although noncontrast it appears to be reducing in size. Written report and images were reviewed. Assessment & Plan Assessment & Plan (1) AAA (abdominal aortic aneurysm) without rupture: Comment: 12/24/2022 - endovascular aneurysm repair with Endologix AFX2 Code(s): I71.40 - Abdominal aortic aneurysm, without rupture, unspecified Category: Medical Qualifiers: Abdominal aorta location: infrarenal aorta Qualified Code(s): I71.43 - Infrarenal abdominal aortic aneurysm, without rupture Plan: At the current time it appears to be stable. Will order noncontrast scan in approximately 1 year's time. (2) Renal artery stenosis: Code(s): I70.1 - Atherosclerosis of renal artery Category: Medical Plan: I did evaluate the left renal artery and due to the angulation it would be very difficult for endovascular repair. At the current time he appears to be doing relatively well and is in stable condition. Should his overall kidney function deteriorate or he has uncontrolled hypertension will consider intervention at that time. Thank you for allowing us to assist in his care. If there are any questions or concerns please do not hesitate to contact us. Orders: Orders CT abdomen pelvis wo IV con 1 Year I71.43 - Infrarenal abdominal aortic aneurysm, without rupture Coding Level of Care Code Est Pt Level 4 (04869) Diagnoses Infrarenal abdominal aortic aneurysm (AAA) without rupture I71.43 Abdominal aorta location: infrarenal aorta Renal artery stenosis I70.1
== END 2024-01-30 15:25 | disposition home or self-care (01) ==
PROVIDERS: PCP Hospitalist; Visit Provider Surgery Vascular Surgery
DX: I71.43 Infrarenal abdominal aortic aneurysm, without rupture (principal); I70.1 Atherosclerosis of renal artery
CPT/HCPCS: 99213

== ENCOUNTER → 2024-01-30 14:21 | Outpatient (BNVA) | payer MEDICARE, MEDICAID, SELFPAY | PROVIDERS: PCP Hospitalist; Visit Provider Surgery Vascular Surgery | DX: I71.43 Infrarenal abdominal aortic aneurysm, without rupture (principal); I70.1 Atherosclerosis of renal artery | CPT/HCPCS: 99212 ==

== ENCOUNTER 2024-02-11 20:47 | Emergency (ER) | payer MEDICARE, MEDICAID, SELFPAY ==
[2024-02-11 21:02] VITALS: BP 120/82; BP 130/80; PULSE 98; RESP 20; TEMP 36.6; O2SAT 98; O2SAT 99; BMI 21.4
[2024-02-11 21:29] LABS: MANUAL DIFF FLAG NO
[2024-02-11 21:33] LABS: Appearance Urine Turbid; Color Urine Yellow; Glucose Urine UA Negative (Negative); Leukocyte Esterase Urine Large (3+) (Negative); Nitrite Urine Negative (Negative); PH 6.5 (5.0-9.0); UMIC TRIGGER UACC YES; Urine Blood Moderate (2+) (Negative); Urine Ketones Negative (Negative); Urine Protein 100 (2+) mg/dL (Neg-Trace)
[2024-02-11 21:37] LABS: Basophils Percent Auto 0.3 % (0-2); Eosinophils Absolute Auto 0.3 X10*3/uL (0.0-0.4); Eosinophils Percent Auto 2.9 % (0-4); Hematocrit 24.8 % (42.0-52.0); Hemoglobin 7.9 g/dl (14.0-18.0); Imm Gran Abs Auto 0.09 X10*3/uL (0.00-0.03); Imm Gran Pct Auto 0.9 % (0.0-0.4); Lymphocytes Absolute Auto 0.9 X10*3/uL (1.2-4.9); Lymphocytes Percent Auto 8.3 % (20-40); Mean Corpuscular HGB Conc 31.9 g/dl (31.0-36.0); Mean Corpuscular Hemoglobin 27.1 pg (27.0-33.0); Mean Corpuscular Volume 85.2 fL (80.0-98.0); Mean Platelet Volume 9.9 fL (9.4-12.4); Monocytes Absolute Auto 0.7 X10*3/uL (0.1-1.2); Neutrophils Absolute Auto 8.5 x10*3/uL (2.0-8.3); Neutrophils Percent Auto 80.6 % (45-73); Platelet Count 307 X10*3/uL (160-400); Red Blood Count 2.91 X10*6/uL (4.60-5.80); White Blood Count 10.6 X10*3/uL (4.8-10.8)
[2024-02-11 21:48] LABS: Alanine Aminotransferase 21 U/L (0-40); Albumin Level 2.7 g/dL (3.5-5.0); Alkaline Phosphatase 117 U/L (39-117); Anion Gap 15 (12-20); Aspartate Amino Transferase 23 U/L (5-37); Bilirubin Total 0.2 mg/dL (0.0-1.0); Blood Urea Nitrogen 64 mg/dL (9-16); Calcium 8.6 mg/dL (8.4-10.2); Carbon Dioxide 26 mmol/L (22-29); Chloride 100 mmol/L (96-108); Creatinine Clr Calc Pharmacy 22.6; Estimated Glomerular Filt Rate 26; Glucose Random 96 mg/dL (60-115); Potassium 5.5 mmol/L (3.3-5.1); Sodium 135 mmol/L (135-145); Total Protein 6.2 g/dL (6.5-8.0)
--- NOTE | 2024-02-11 21:59 | ED.GENADULT ---
HPI - General Adult General Chief complaint: General Medical Stated complaint: abnormal labs, low output Time Seen by Provider: 02/11/24 21:05 Source: patient and EMS Mode of arrival: EMS Limitations: other History of Present Illness ED Provider: Dr. Yovana Martin HPI narrative: Patient comes to the emergency room from [facility]. According to the EMS crew, they were called because the patient has been drinking plenty of fluids but not producing enough urine. Patient is poor historian but states that he does not have any discomfort, patient states that he feels well. Related Data Home Medications ?Medication ?Instructions ?Recorded ?Confirmed bisacodyl 10 mg rectal suppository 10 mg WA DAILY PRN Constipation 09/20/22 01/01/24 (Dulcolax (bisacodyl)) sodium phosphates 19 gram-7 118 ml WA DAILY PRN Constipation 09/20/22 01/01/24 gram/118 mL enema (Fleet Enema) lactulose 10 gram/15 mL oral 15 ml feeding tube BID 09/26/22 01/01/24 solution levothyroxine 112 mcg tablet 112 mcg feeding tube DAILY@0600 09/26/22 01/01/24 simvastatin 40 mg tablet 40 mg feeding tube BEDTIME 09/26/22 01/01/24 polyvinyl alcohol 1.4 % eye drops 1 drp ophthalmic (eye) Q4H PRN Dry 12/05/22 01/01/24 (Artificial Tears (polyvinyl Eyes alcohol)) sennosides 8.6 mg tablet (senna) 17.2 mg feeding tube DAILY PRN 12/05/22 01/01/24 Constipation diazepam 2 mg tablet 3 mg feeding tube BID 10/03/23 01/01/24 albuterol sulfate 90 mcg/actuation 2 puff inhalation Q4H PRN 10/13/23 01/01/24 aerosol inhaler shortness of breath or wheezing bethanechol chloride 50 mg tablet 50 mg feeding tube BID 10/13/23 01/01/24 perphenazine 8 mg tablet 8 mg feeding tube BID 10/13/23 01/01/24 terazosin 5 mg capsule 5 mg feeding tube BEDTIME 10/13/23 01/01/24 acetaminophen 325 mg tablet 650 mg feeding tube Q6H PRN Fever 12/16/23 01/01/24 Or Pain Allergies Allergy/AdvReac Type Severity Reaction Status Date / Time cefpodoxime Allergy Intermediate Rash Verified 02/11/24 21:08 lactose-reduced food Allergy Unknown Unknown Verified 02/11/24 21:08 [From Jevity] Review of Systems Review of Systems: Yes Other (Limited history, poor historian) [facility] Past Medical History Medical History AAA (abdominal aortic aneurysm) without rupture Hyponatremia Acute UTI Obstructed, uropathy Acute on chronic kidney failure Bladder mass Acute renal failure Pulmonary nodules COPD (chronic obstructive pulmonary disease) Encounter for screening colonoscopy Lung mass Swallowing problem Pulmonary emphysema COVID-19 vaccine series completed History of COVID-19 Resides in group home facility History of falling Personal history of traumatic brain injury Other specified intracranial injury without loss of consciousness, subsequent encounter Paralytic gait Benign prostatic hyperplasia without lower urinary tract symptoms Pain in left hip Primary generalized (osteo)arthritis Constipation, unspecified Impulse disorder, unspecified Trichotillomania Alcohol dependence, uncomplicated Hyperlipidemia, unspecified Hypothyroidism, unspecified Weakness Unspecified lack of coordination Muscle weakness (generalized) Age-related nuclear cataract, bilateral Unspecified abnormalities of gait and mobility Personal history of COVID-19 Repeated falls Lefort i fracture, initial encounter for closed fracture Unsteadiness on feet Other abnormalities of gait and mobility Dysphagia, oropharyngeal phase Paranoid schizophrenia Surgical History Status post percutaneous abdominal aortic aneurysm (AAA) repair Status post AAA (abdominal aortic aneurysm) repair History of facial surgery Family History Family History Unknown No problems noted. Social History Social History (Updated 01/30/24 @ 15:02 by VINNIE Langford) Household Members: Other Housing: [facility] Housing Other:: [facility] Are you a primary gericare aide teacher to a significant other at home: No Do you presently have visiting nurse or other home services: No Unable to assess alcohol history related to: Unknown Comment: 1:1 sitter Patient Tobacco Use Status: Current everyday Tobacco user Tobacco use type: Cigarette Cigarettes Per Day: 4 Years Smoked: 57 Second Hand Smoke Exposure: No Advance Directives: Yes Advance Directives on File: Yes Advance Directives Date on File: 12/05/22 service: No Current occupational status: disabled Physical Exam ED Vital Signs: Vital Signs - 24 hr 02/11/24 21:02 02/11/24 22:00 02/12/24 00:00 Temperature 97.9 F 97.1 F 98.0 F Pulse Rate 98 104 H 100 Respiratory Rate 20 20 20 Blood Pressure 120/82 128/57 L 105/72 Pulse Oximetry 99 97 96 Oxygen Delivery Method Room Air Nasal Cannula Nasal Cannula Oxygen Flow Rate 2 2 BMI result Body Mass Index 21.4 Const Other: Appearance: Alert. No acute distress. Eyes: Pupils equal, round and reactive to light. ENT: Pharynx normal. Drooling at baseline Neck: Normal inspection. Neck supple. No lymph nodes noted. No crepitus CVS: Normal heart rate and rhythm. Pulses normal. Normal S1 and S2 Respiratory: No respiratory distress. Breath sounds normal. No Wheezing. No rales Abdomen: Soft and nontender. No rigidity. No distention. Skin: Skin warm and dry. Normal skin color. Normal skin turgor. Extremities: No lower extremity edema. No Lacerations. No Rash Neuro: Unable to participating cranial nerve assessment, he moves all extremities Psych: calm, cooperative, normal affect Course Course Course Narrative: -we will obtain basic labs -patient's vitals normal, patient has a complaint Medical Decision Making Medical Decision Making [facility] Narrative: -my interpretation of labs: Patient's hemoglobin is a bit lower than usual, 7.9. Patient is not on any blood thinners. We will go ahead and order an occult blood test GI bleed. However, patient does have chronic anemia. Patient's potassium is 5.5, patient given 1 dose of Lokelma. Creatinine 2.407, patient has chronic kidney disease -patient has chronic anemia, occult blood was negative. Bladder scan less than 30 mL -patient remains awake, alert, asymptomatic, states he feels well, states he does not know why he is here. Vitals stable Differential Diagnosis Differential Diagnoses: The differential diagnosis associated with the presentation includes Lab Data [facility] Lab Attestation statement: I reviewed the patient's lab results. 02/11/24 21:25 02/11/24 21:25 Labs: Lab Results 02/11/24 02/11/24 02/11/24 Range/Units 21:19 21:25 23:31 WBC 10.6 (4.8-10.8) X10*3/uL RBC 2.91 L (4.60-5.80) X10*6/uL Hgb 7.9 L (14.0-18.0) g/dl Hct 24.8 L (42.0-52.0) % MCV 85.2 (80.0-98.0) fL MCH 27.1 (27.0-33.0) pg MCHC 31.9 (31.0-36.0) g/dl RDW 16.0 (11.0-16.0) % Plt Count 307 D (160-400) X10*3/uL MPV 9.9 (9.4-12.4) fL Immature Gran % (Auto) 0.9 H (0.0-0.4) % Neut % (Auto) 80.6 H (45-73) % Lymph % (Auto) 8.3 L (20-40) % [place] % (Auto) 7.0 (2-11) % Eos % (Auto) 2.9 (0-4) % Baso % (Auto) 0.3 (0-2) % Lymph # (Auto) 0.9 L (1.2-4.9) X10*3/uL [place] # (Auto) 0.7 (0.1-1.2) X10*3/uL Eos # (Auto) 0.3 (0.0-0.4) X10*3/uL Baso # (Auto) 0.0 (0.0-0.2) X10*3/uL Abs Immat Gran (auto) 0.09 H (0.00-0.03) X10*3/uL Absolute Neuts (auto) 8.5 H (2.0-8.3) x10*3/uL Absolute Nucleated RBC 0.000 (0.0-0.012) X10*3/uL Nucleated RBC % (auto) 0.0 (0.0-0.2) /100WBC Sodium 135 (135-145) mmol/L Potassium 5.5 H D (3.3-5.1) mmol/L Chloride 100 (96-108) mmol/L Carbon Dioxide 26 (22-29) mmol/L Anion Gap 15 (12-20) BUN 64 H (9-16) mg/dL Creatinine 2.47 H (0.5-1.4) mg/dL Estim Creat Clear Calc 22.6 Estimated GFR 26 Random Glucose 96 (60-115) mg/dL Calcium 8.6 (8.4-10.2) mg/dL Total Bilirubin 0.2 (0.0-1.0) mg/dL AST 23 (5-37) U/L ALT 21 (0-40) U/L Alkaline Phosphatase 117 (39-117) U/L Total Protein 6.2 L (6.5-8.0) g/dL Albumin 2.7 L (3.5-5.0) g/dL Urine Color Yellow Urine Appearance Turbid Urine pH 6.5 (5.0-9.0) Ur Specific [place] 1.010 (1.005-1.025) Urine Protein 100 (2+) H (Neg-Trace) mg/dL Urine Glucose (UA) Negative (Negative) mg/dL Urine Ketones Negative (Negative) mg/dL Urine Blood Moderate (2+) H (Negative) Urine Nitrite Negative (Negative) Ur Leukocyte Esterase Large (3+) H (Negative) Urine RBC >20 H (0-2) /HPF Urine WBC >50 H (0-5) /HPF Ur Squamous Epith Cells 0-2 (0-2) /HPF Urine Bacteria 4+ (None Seen) Hyaline Casts 6-10 (0-2) /LPF Stool Occult Blood NEGATIVE (NEGATIVE) Discharge Plan Discharge Clinical Impression: Anemia, chronic disease, Acute hyperkalemia Patient Disposition: Home, Self-Care Instructions: Hyperkalemia (ED), Anemia (ED) Prescriptions: No Action acetaminophen 325 mg Tablet 650 mg feeding tube Q6H PRN (Reason: Fever Or Pain) Rx Instructions: DO NOT EXCEED 3 GRAMS IN 24 HOURS perphenazine 8 mg tablet 8 mg feeding tube BID terazosin 5 mg capsule 5 mg feeding tube BEDTIME bethanechol chloride 50 mg tablet 50 mg feeding tube BID albuterol sulfate 90 mcg/actuation HFA aerosol inhaler 2 puff inhalation Q4H PRN (Reason: shortness of breath or wheezing) lactulose 10 gram/15 mL solution 15 ml feeding tube BID simvastatin 40 mg tablet 40 mg feeding tube BEDTIME levothyroxine 112 mcg tablet 112 mcg feeding tube DAILY@0600 bisacodyl [Dulcolax (bisacodyl)] 10 mg suppository 10 mg WA DAILY PRN (Reason: Constipation) Rx Instructions: USE IF SENNA IS INEFFECTIVE Fleet Enema 19-7 gram/118 mL enema 118 ml WA DAILY PRN (Reason: Constipation) polyvinyl alcohol [Artificial Tears (polyvin alc)] 1.4 % drops 1 drp ophthalmic (eye) Q4H PRN (Reason: Dry Eyes) sennosides [senna] 8.6 mg tablet 17.2 mg feeding tube DAILY PRN (Reason: Constipation) diazepam 2 mg tablet 3 mg feeding tube BID Print Language: Romanian
[2024-02-11 22:00] VITALS: BP 128/57; PULSE 104; RESP 20; TEMP 36.2; O2SAT 97
[2024-02-11 22:26] LABS: Bacteria Urine 4+ (None Seen); RBC Urine >20 /HPF (0-2); Squamous Epithelial Cell Urine 0-2 /HPF (0-2); UACC Culture Trigger YES; WBC Urine >50 /HPF (0-5)
--- NOTE | 2024-02-11 23:23 | ECG_ITS ---
Test Reason : HYPER K Blood Pressure : / mmHG Vent. Rate : 105 BPM Atrial Rate : 105 BPM P-R Int : 150 ms QRS Dur : 072 ms QT Int : 340 ms P-R-T Axes : 075 054 063 degrees QTc Int : 449 ms Sinus tachycardia Otherwise normal ECG When compared with ECG of 16-DEC-2023 09:07, T wave inversion no longer evident in Anterior leads Referred By: Yovana Martin Electronically Signed By:Franklin Hancock
[2024-02-11 23:36] LABS: OBS Int Ctl Valid YES; OBS1 NEGATIVE (NEGATIVE)
[2024-02-12] VITALS: BP 105/72; PULSE 100; RESP 20; TEMP 36.7; O2SAT 96
[2024-02-12 01:30] VITALS: BP 105/72; PULSE 100; RESP 20; TEMP 36.7; O2SAT 96
--- NOTE | 2024-02-12 01:30 | PC.NURSE ---
NURSE TO NURSE REPORT GIVEN
== END 2024-02-12 03:34 | disposition home or self-care (01) ==
PROVIDERS: Emergency Provider Emergency Medicine; PCP Hospitalist
DX: N39.0 Urinary tract infection, site not specified (principal); A04.8 Other specified bacterial intestinal infections; B96.89 Other specified bacterial agents as the cause of diseases classified elsewhere; E87.5 Hyperkalemia; N18.9 Chronic kidney disease, unspecified; D63.1 Anemia in chronic kidney disease; J44.9 Chronic obstructive pulmonary disease, unspecified; E78.5 Hyperlipidemia, unspecified; E03.9 Hypothyroidism, unspecified; I71.40 Abdominal aortic aneurysm, without rupture, unspecified; R39.11 Hesitancy of micturition; Z79.899 Other long term (current) drug therapy
CPT/HCPCS: 36415; 51798; 80053; 81001; 82272; 85025; 87086; 87088; 87186; 93005; 99283; 99284

== ENCOUNTER → 2024-02-11 23:23 | Outpatient (BNV) | payer MEDICARE, MEDICAID, SELFPAY | PROVIDERS: Emergency Provider Emergency Medicine; PCP Hospitalist; Visit Provider Internal Medicine Cardiovascular Disease | DX: E87.5 Hyperkalemia (principal) | CPT/HCPCS: 93010 ==

== ENCOUNTER 2024-02-19 16:09 | Inpatient (IN) | payer MEDICARE, MEDICAID, SELFPAY ==
--- NOTE | ~2024-02-19 | XR_ITS ---
EXAMINATION: XR CHEST CLINICAL INFORMATION: Shortness of breath COMPARISON: 12/31/2023 TECHNIQUE: Frontal view of the chest was obtained. FINDINGS: No significant abnormality is noted involving the heart, lungs, mediastinum, bony thorax or soft tissues. XR/XR chest 1V IMPRESSION: Unremarkable examination.
--- NOTE | ~2024-02-19 | CT_ITS ---
EXAMINATION: CT ABDOMEN AND PELVIS WITHOUT CONTRAST CLINICAL INFORMATION: Right nephrostomy COMPARISON: Nephrostomy placement 12/26/2023, CT abdomen pelvis 12/20/2023, CT chest 10/13/2023 TECHNIQUE: Multidetector volumetric imaging was performed from the superior aspect of the liver through the pubic symphysis. Sagittal and coronal reformatted images were obtained on the technologist's workstation. This CT examination was performed using dose optimization techniques as appropriate, variously including the following: *Automated exposure control *Adjustment of mA and/or kV according to patient size (this includes techniques or standardized protocols for targeted exams where dose is matched to indication/reason for exam; i.e. extremities or head) *Use of iterative reconstruction technique DLP: 495 mGy-cm FINDINGS: LUNG BASES: Trace bilateral effusions are present along with lower lobe atelectasis. 9 mm nodule is seen at the left lung base not seen previously (6:100). LIVER, GALLBLADDER, AND BILIARY TREE: The liver is normal in size, shape, and attenuation. Benign hepatic cysts are present. No biliary ductal dilatation is present. The gallbladder is contracted but otherwise unremarkable with no evidence of radiopaque gallstones, gallbladder wall thickening, or obvious pericholecystic inflammatory changes. PANCREAS: Unremarkable. SPLEEN: Unremarkable. ADRENAL GLANDS: Unremarkable. KIDNEYS AND URETERS: The kidneys are normal in size, shape, and attenuation. A right sided internal/external PCN/ureteral stent is present with its distal pigtail in the bladder and its proximal pigtail in the renal pelvis. The right renal pelvis is dilated. No significant perinephric hematoma is seen. No renal calcifications. There is mild left-sided hydronephrosis with dilatation of the ureter down to the level of the bladder. No calculi are seen. No left renal masses. BLADDER: Bladder wall is thickened and contains air. A Holland catheter is present with the balloon in the bladder. PROSTATE: The prostate appears significantly enlarged with calcifications. BOWEL: A gastrostomy tube is present in the stomach. Moderate stool present in the colon. Colonic diverticula are seen throughout. Mild stranding is present around the right posterior pararenal fascia and right lateral conal fascia. The small and large bowel are otherwise unremarkable. The appendix is unremarkable. ABDOMINAL WALL: Small right inguinal hernia present with some small bowel loops just protruding in minimally LYMPH NODES: Normal. VASCULAR: There is an abdominal aortic aneurysm present with a aorto biiliac stent graft in place. Maximal sac size is similar to prior with a maximal transverse dimension of 8.5 cm. PELVIC VISCERA: See discussion above regarding prostate. No free fluid is seen. No pelvic mass. OSSEOUS STRUCTURES: No acute findings CT/CT abdomen pelvis wo IV con IMPRESSION: 1. Right-sided internal/external PCN/ureteral stent in good position with no significant perinephric hematoma. 2. Mild left-sided hydronephrosis with dilatation of the ureter down to the level of the bladder. 3. Bladder wall thickening with Holland catheter in place. 4. Other incidental findings as described above including a 9 mm left lower lobe lung nodule, gastrostomy tube, prostatomegaly, colonic diverticulosis, small right inguinal hernia and abdominal aortic aneurysm with aorto biiliac stent graft in place. Fleischner guidelines were followed.
[2024-02-19 16:44] VITALS: BP 114/72; BP 117/85; PULSE 124; PULSE 130; RESP 20; TEMP 38.6; O2SAT 89; O2SAT 97; BMI 24.1
[2024-02-19] MEDS: 0.9 % Sodium Chloride 1,000 ML 999 ML IV ×2 (16:45→19:24)
--- NOTE | 2024-02-19 16:45 | ED.GENADULT ---
HPI - General Adult General Chief complaint: Altered Mental Status Stated complaint: ?SEPSIS, HAS UTI, FROM SNF Time Seen by Provider: 02/19/24 16:22 Source: EMS and RN notes reviewed Mode of arrival: EMS Limitations: altered mental status History of Present Illness ED Provider: yao GARCIA narrative: patient is 70 years old with history of bladder cancer with Holland catheter and right nephrostomy tube with bilateral ureteric stent on IV antibiotics for UTI at intermediate comes here for ? pulled out his right nephrostomy tube which is still in place making urine warm to touch, but tachycardic Related Data Home Medications ?Medication ?Instructions ?Recorded ?Confirmed bisacodyl 10 mg rectal suppository 10 mg CA DAILY PRN Constipation 09/20/22 02/19/24 (Dulcolax (bisacodyl)) sodium phosphates 19 gram-7 118 ml CA DAILY PRN Constipation 09/20/22 02/19/24 gram/118 mL enema (Fleet Enema) lactulose 10 gram/15 mL oral 15 ml feeding tube BID 09/26/22 02/19/24 solution levothyroxine 112 mcg tablet 112 mcg feeding tube DAILY@0600 09/26/22 02/19/24 simvastatin 40 mg tablet 40 mg feeding tube BEDTIME 09/26/22 02/19/24 polyvinyl alcohol 1.4 % eye drops 1 drp ophthalmic (eye) Q4H PRN Dry 12/05/22 02/19/24 (Artificial Tears (polyvinyl Eyes alcohol)) sennosides 8.6 mg tablet (senna) 17.2 mg feeding tube DAILY PRN 12/05/22 02/19/24 Constipation diazepam 2 mg tablet 3 mg feeding tube BID 10/03/23 02/19/24 albuterol sulfate 90 mcg/actuation 2 puff inhalation Q4H PRN 10/13/23 02/19/24 aerosol inhaler shortness of breath or wheezing bethanechol chloride 50 mg tablet 50 mg feeding tube BID 10/13/23 02/19/24 perphenazine 8 mg tablet 8 mg feeding tube BID 10/13/23 02/19/24 terazosin 5 mg capsule 5 mg feeding tube BEDTIME 10/13/23 02/19/24 acetaminophen 325 mg tablet 650 mg feeding tube Q6H PRN Fever 12/16/23 02/19/24 Or Pain midodrine 5 mg tablet 5 mg PO BID PRN Hypotension 02/19/24 02/19/24 Allergies Allergy/AdvReac Type Severity Reaction Status Date / Time cefpodoxime Allergy Intermediate Rash Verified 02/19/24 16:47 lactose-reduced food Allergy Unknown Unknown Verified 02/19/24 16:47 [From Jevity] Review of Systems Review of Systems: Yes Unobtainable due to mental status [facility] Past Medical History Medical History AAA (abdominal aortic aneurysm) without rupture Hyponatremia Acute UTI Obstructed, uropathy Acute on chronic kidney failure Bladder mass Acute renal failure Pulmonary nodules COPD (chronic obstructive pulmonary disease) Encounter for screening colonoscopy Lung mass Swallowing problem Pulmonary emphysema COVID-19 vaccine series completed History of COVID-19 Resides in senior care facility History of falling Personal history of traumatic brain injury Other specified intracranial injury without loss of consciousness, subsequent encounter Paralytic gait Benign prostatic hyperplasia without lower urinary tract symptoms Pain in left hip Primary generalized (osteo)arthritis Constipation, unspecified Impulse disorder, unspecified Trichotillomania Alcohol dependence, uncomplicated Hyperlipidemia, unspecified Hypothyroidism, unspecified Weakness Unspecified lack of coordination Muscle weakness (generalized) Age-related nuclear cataract, bilateral Unspecified abnormalities of gait and mobility Personal history of COVID-19 Repeated falls [place]ef[place] i fracture, initial encounter for closed fracture Unsteadiness on feet Other abnormalities of gait and mobility Dysphagia, oropharyngeal phase Paranoid schizophrenia Surgical History Status post percutaneous abdominal aortic aneurysm (AAA) repair Status post AAA (abdominal aortic aneurysm) repair History of facial surgery Family History Family History Unknown No problems noted. Social History Social History Household Members: Other Housing: Jail Housing Other:: [facility] Are you a primary family member caretaker to a significant other at home: No Do you presently have visiting nurse or other home services: No Unable to assess alcohol history related to: Unknown Comment: 1:1 sitter Patient Tobacco Use Status: Current everyday Tobacco user Tobacco use type: Cigarette Cigarettes Per Day: 4 Years Smoked: 57 Second Hand Smoke Exposure: No Advance Directives Date on File: 12/05/22 service: No Current occupational status: disabled Physical Exam ED Vital Signs: Vital Signs - 24 hr 02/19/24 16:44 02/19/24 19:00 02/19/24 19:01 Temperature 101.4 F H 98.5 F 98.5 F Pulse Rate 124 H Respiratory Rate 20 Blood Pressure 117/85 Pulse Oximetry 97 Oxygen Delivery Method Room Air Oxygen Flow Rate 02/19/24 19:02 Temperature 98.5 F Pulse Rate 115 H Respiratory Rate 30 H Blood Pressure Pulse Oximetry 96 Oxygen Delivery Method Nasal Cannula Oxygen Flow Rate 3 BMI result Body Mass Index 24.1 Appearance: Alert. No acute distress. Eyes: PERRLA, No Nystagmus ENT: Pharynx normal. Oral Mucosa moist Neck: Normal inspection. Neck supple. CVS: Normal heart rate and rhythm. Pulses normal. Respiratory: No respiratory distress. Equal air entry bilateral, no wheezing/rales/rhonchi Abdomen: Soft and nontender. Bowel sounds are present, no mass palpable, no CVA tenderness right nephrostomy in place Holland catheter in place G-tube in place Skin: Skin warm and dry. Normal skin color. Normal skin turgor. Extremities: No lower extremity edema. No calf tenderness Neuro: alert and awake moving all 4 extremities No motor deficit. Medications Administered Generic Name Dose Route Start Last Admin Trade Name Freq PRN Reason Stop Dose Admin Heparin Sodium (Porcine) 5,000 unit 02/19/24 20:15 02/19/24 20:53 Heparin Sodium,Porcine 5,000 Unit/Ml Vial SUBCUT 5,000 unit Q12H AMARILYS Administration Sodium Chloride 1,000 mls @ 100 mls/hr 02/19/24 20:30 02/19/24 20:50 Ns IVCONT 100 mls/hr .Q10H AMARILYS Administration Metronidazole 500 mg in 100 mls @ 100 mls/hr 02/19/24 20:45 02/19/24 21:47 Flagyl IV Infused Q8H AMARILYS Infusion Sodium Chloride 3 ml 02/20/24 00:00 02/19/24 23:46 0.9 % Sodium Chloride Flush 3 Ml Syringe IVFLUSH 3 ml QSHIFT AMARILYS Administration Discontinued Medications Generic Name Dose Route Start Last Admin Trade Name Freq PRN Reason Stop Dose Admin Acetaminophen 650 mg 02/19/24 16:53 02/19/24 17:20 Acetaminophen 325 Mg Tablet PO 02/19/24 16:54 650 mg ONCE ONE Administration Sodium Chloride 1,000 mls @ 999 mls/hr 02/19/24 16:43 02/19/24 19:31 Ns IV 02/19/24 17:43 Infused .Q1H1M ONE Infusion Ceftriaxone Sodium 1 gm/ 50 mls @ 100 mls/hr 02/19/24 16:53 02/19/24 18:12 Sodium Chloride IV 02/19/24 17:22 Infused ONCE ONE Infusion Sodium Chloride 1,000 mls @ 999 mls/hr 02/19/24 19:15 02/19/24 22:08 Ns IV 02/19/24 20:15 Infused .Q1H1M ONE Infusion Calcium Gluconate 1 gm in 50 mls @ 50 mls/hr 02/19/24 19:15 02/19/24 21:01 Calcium Gluconate IV 02/19/24 20:14 Infused ONCE ONE Infusion Ibuprofen 600 mg 02/19/24 16:53 02/19/24 17:20 Ibuprofen 600 Mg Tablet PO 02/19/24 16:54 600 mg ONCE ONE Administration Sodium Zirconium Cyclosilicate 10 gm 02/19/24 19:15 02/19/24 19:23 Sodium Zirconium Cyclosilicate 10 Gm Powd.Pack G-TUBE 02/19/24 19:16 10 gm ONCE ONE Administration Medical Decision Making Medical Decision Making MDM Narrative: 73-year-old male with history of COPD, dysphagia, BPH, history of TBI, history of alcohol dependence, hyperlipidemia, hypothyroidism paranoid schizophrenia, bladder cancer with chronic Holland and right nephrostomy tube, AAA, renal artery stenosis presented to the ED from [facility] came here for change in mental status and possible nephrostomy tube dislodgement as patient was trying to pull right nephrostomy tube at intermediate. CT scan of the abdomen showed nephrostomy in place noted to have UTI also patient became hypoxic desaturated to 60% likely aspiration started on Rocephin in the ER will admit patient for further evaluation Patient also does have KELLY Differential Diagnosis Differential Diagnoses: The differential diagnosis associated with the presentation includes KELLY/fluid overload bacteremia/metabolic encephalopathy/UTI Admission/Observation Consideration of admission/observation: Escalation of care including admission/observation considered Consult Healthcare Provider Management of the patient was discussed with: Hospitalist Lab Data [facility] Lab Attestation statement: I reviewed the patient's lab results. 02/19/24 17:12 02/19/24 17:13 Labs: Lab Results 02/19/24 02/19/24 02/19/24 Range/Units 17:12 17:13 17:14 WBC 21.9 H (4.8-10.8) X10*3/uL RBC 3.29 L (4.60-5.80) X10*6/uL Hgb 8.9 L (14.0-18.0) g/dl Hct 27.8 L (42.0-52.0) % MCV 84.5 (80.0-98.0) fL MCH 27.1 (27.0-33.0) pg MCHC 32.0 (31.0-36.0) g/dl RDW 16.3 H (11.0-16.0) % Plt Count 464 H D (160-400) X10*3/uL MPV 9.6 (9.4-12.4) fL Immature Gran % (Auto) 0.5 H (0.0-0.4) % Neut % (Auto) 90.2 H (45-73) % Lymph % (Auto) 1.6 L (20-40) % [place] % (Auto) 7.5 (2-11) % Eos % (Auto) 0.0 (0-4) % Baso % (Auto) 0.2 (0-2) % Lymph # (Auto) 0.4 L (1.2-4.9) X10*3/uL [place] # (Auto) 1.7 H (0.1-1.2) X10*3/uL Eos # (Auto) 0.0 (0.0-0.4) X10*3/uL Baso # (Auto) 0.0 (0.0-0.2) X10*3/uL Abs Immat Gran (auto) 0.12 H (0.00-0.03) X10*3/uL Absolute Neuts (auto) 19.7 H (2.0-8.3) x10*3/uL Absolute Nucleated RBC 0.000 (0.0-0.012) X10*3/uL Nucleated RBC % (auto) 0.0 (0.0-0.2) /100WBC Smear Tech's Comments VERIFIED Sodium 141 (135-145) mmol/L Potassium 6.0 H* (3.3-5.1) mmol/L Chloride 105 (96-108) mmol/L Carbon Dioxide 22 (22-29) mmol/L Anion Gap 20 (12-20) BUN 95 H (9-16) mg/dL Creatinine 3.65 H (0.5-1.4) mg/dL Estim Creat Clear Calc 15.6 Estimated GFR 16 Random Glucose 97 (60-115) mg/dL Lactic Acid 1.6 (0.5-2.0) mmol/L Calcium 9.6 D (8.4-10.2) mg/dL Total Bilirubin 0.3 (0.0-1.0) mg/dL AST 33 (5-37) U/L ALT 29 (0-40) U/L Alkaline Phosphatase 122 H (39-117) U/L Total Protein 6.6 (6.5-8.0) g/dL Albumin 2.7 L (3.5-5.0) g/dL Urine Color Urine Appearance Urine pH (5.0-9.0) Ur Specific [place] (1.005-1.025) Urine Protein (Neg-Trace) mg/dL Urine Glucose (UA) (Negative) mg/dL Urine Ketones (Negative) mg/dL Urine Blood (Negative) Urine Nitrite (Negative) Ur Leukocyte Esterase (Negative) Urine RBC (0-2) /HPF Urine WBC (0-5) /HPF Ur Squamous Epith Cells (0-2) /HPF Urine Bacteria (None Seen) Hyaline Casts (0-2) /LPF Influenza Type A (PCR) NEGATIVE (Negative) Influenza Type B (PCR) NEGATIVE (Negative) RSV RNA Qual (PCR) NEGATIVE (Negative) SARS-CoV-2 RNA (RT-PCR) NEGATIVE (Negative) 02/19/24 Range/Units 20:06 WBC (4.8-10.8) X10*3/uL RBC (4.60-5.80) X10*6/uL Hgb (14.0-18.0) g/dl Hct (42.0-52.0) % MCV (80.0-98.0) fL MCH (27.0-33.0) pg MCHC (31.0-36.0) g/dl RDW (11.0-16.0) % Plt Count (160-400) X10*3/uL MPV (9.4-12.4) fL Immature Gran % (Auto) (0.0-0.4) % Neut % (Auto) (45-73) % Lymph % (Auto) (20-40) % [place] % (Auto) (2-11) % Eos % (Auto) (0-4) % Baso % (Auto) (0-2) % Lymph # (Auto) (1.2-4.9) X10*3/uL [place] # (Auto) (0.1-1.2) X10*3/uL Eos # (Auto) (0.0-0.4) X10*3/uL Baso # (Auto) (0.0-0.2) X10*3/uL Abs Immat Gran (auto) (0.00-0.03) X10*3/uL Absolute Neuts (auto) (2.0-8.3) x10*3/uL Absolute Nucleated RBC (0.0-0.012) X10*3/uL Nucleated RBC % (auto) (0.0-0.2) /100WBC Smear Tech's Comments Sodium (135-145) mmol/L Potassium (3.3-5.1) mmol/L Chloride (96-108) mmol/L Carbon Dioxide (22-29) mmol/L Anion Gap (12-20) BUN (9-16) mg/dL Creatinine (0.5-1.4) mg/dL Estim Creat Clear Calc Estimated GFR Random Glucose (60-115) mg/dL Lactic Acid (0.5-2.0) mmol/L Calcium (8.4-10.2) mg/dL Total Bilirubin (0.0-1.0) mg/dL AST (5-37) U/L ALT (0-40) U/L Alkaline Phosphatase (39-117) U/L Total Protein (6.5-8.0) g/dL Albumin (3.5-5.0) g/dL Urine Color [place] A Urine Appearance Turbid Urine pH 8.0 (5.0-9.0) Ur Specific [place] 1.015 (1.005-1.025) Urine Protein 300 (3+) H (Neg-Trace) mg/dL Urine Glucose (UA) Negative (Negative) mg/dL Urine Ketones Negative (Negative) mg/dL Urine Blood Large (3+) H (Negative) Urine Nitrite Positive H (Negative) Ur Leukocyte Esterase Large (3+) H (Negative) Urine RBC >20 H (0-2) /HPF Urine WBC >50 H (0-5) /HPF Ur Squamous Epith Cells 3-5 (0-2) /HPF Urine Bacteria 4+ (None Seen) Hyaline Casts >20 (0-2) /LPF Influenza Type A (PCR) (Negative) Influenza Type B (PCR) (Negative) RSV RNA Qual (PCR) (Negative) SARS-CoV-2 RNA (RT-PCR) (Negative) Independent Interpretation I performed an independent interpretation of an: CT Scan Radiology Impression Discussion of test interpretation with radiology: I have reviewed the radiologist's reading. Radiologist Impression: [place] [id number] CT Scan Report Signed Patient: Mariusz Kirkland MR#: [id number] : 1950 Acct:[id number] Age/Sex: 73 / M ADM Date: 02/19/24 Loc: .ED Attending Dr: Ordering Physician: Salvador Wade MD Date of Service: 02/19/24 Procedure(s): CT abdomen pelvis wo IV con Accession Number(s): [id number] cc: Physician,Unknown ; Salvador Wade MD~ EXAMINATION: CT ABDOMEN AND PELVIS WITHOUT CONTRAST CLINICAL INFORMATION: Right nephrostomy COMPARISON: Nephrostomy placement 12/26/2023, CT abdomen pelvis 12/20/2023, CT chest 10/13/2023 TECHNIQUE: Multidetector volumetric imaging was performed from the superior aspect of the liver through the pubic symphysis. Sagittal and coronal reformatted images were obtained on the technologist's workstation. This CT examination was performed using dose optimization techniques as appropriate, variously including the following: *Automated exposure control *Adjustment of mA and/or kV according to patient size (this includes techniques or standardized protocols for targeted exams where dose is matched to indication/reason for exam; i.e. extremities or head) *Use of iterative reconstruction technique DLP: 495 mGy-cm FINDINGS: LUNG BASES: Trace bilateral effusions are present along with lower lobe atelectasis. 9 mm nodule is seen at the left lung base not seen previously (6:100). LIVER, GALLBLADDER, AND BILIARY TREE: The liver is normal in size, shape, and attenuation. Benign hepatic cysts are present. No biliary ductal dilatation is present. The gallbladder is contracted but otherwise unremarkable with no evidence of radiopaque gallstones, gallbladder wall thickening, or obvious pericholecystic inflammatory changes. PANCREAS: Unremarkable. SPLEEN: Unremarkable. ADRENAL GLANDS: Unremarkable. KIDNEYS AND URETERS: The kidneys are normal in size, shape, and attenuation. A right sided internal/external PCN/ureteral stent is present with its distal pigtail in the bladder and its proximal pigtail in the renal pelvis. The right renal pelvis is dilated. No significant perinephric hematoma is seen. No renal calcifications. There is mild left-sided hydronephrosis with dilatation of the ureter down to the level of the bladder. No calculi are seen. No left renal masses. BLADDER: Bladder wall is thickened and contains air. A Holland catheter is present with the balloon in the bladder. PROSTATE: The prostate appears significantly enlarged with calcifications. BOWEL: A gastrostomy tube is present in the stomach. Moderate stool present in the colon. Colonic diverticula are seen throughout. Mild stranding is present around the right posterior pararenal fascia and right lateral conal fascia. The small and large bowel are otherwise unremarkable. The appendix is unremarkable. ABDOMINAL WALL: Small right inguinal hernia present with some small bowel loops just protruding in minimally LYMPH NODES: Normal. VASCULAR: There is an abdominal aortic aneurysm present with a aorto biiliac stent graft in place. Maximal sac size is similar to prior with a maximal transverse dimension of 8.5 cm. PELVIC VISCERA: See discussion above regarding prostate. No free fluid is seen. No pelvic mass. OSSEOUS STRUCTURES: No acute findings CT/CT abdomen pelvis wo IV con IMPRESSION: 1. Right-sided internal/external PCN/ureteral stent in good position with no significant perinephric hematoma. 2. Mild left-sided hydronephrosis with dilatation of the ureter down to the level of the bladder. 3. Bladder wall thickening with Holland catheter in place. 4. Other incidental findings as described above including a 9 mm left lower lobe lung nodule, gastrostomy tube, prostatomegaly, colonic diverticulosis, small right inguinal hernia and abdominal aortic aneurysm with aorto biiliac stent graft in place. Fleischner guidelines were followed. Critical Care Time Critical Care Time Critical Care Time: Yes Total Critical Care Time: 60 Attestation: The patient was critically ill with a high probability of imminent or life threatening deterioration. I spent greater than 65???minutes of discontinuous time evaluating the patient,delivering critical care at the bedside, discussing and evaluating pertinent data with consultants. Critical care time does not include time spent performing separately billable procedures or teaching. Total time spent performing critical care was 60???minutes. Discharge Plan Discharge Clinical Impression: Acute metabolic encephalopathy, Acute hypoxemic respiratory failure, Acute hyperkalemia, UTI (urinary tract infection) Patient Disposition: Admitted As Inpatient Interventions: Admission Worksheet (ED) Last Done: 02/20/24 00:10 Discharge Date/Time: 02/20/24 00:30
[2024-02-19] MEDS: cefTRIAXone sodium 1 GM in 0.9 % Sodium Chloride 50 ML IV (17:10)
[2024-02-19] MEDS: Ibuprofen 600 MG TABLET PO (17:20)
[2024-02-19] MEDS: Acetaminophen 325 MG TABLET 650 MG PO (17:20)
[2024-02-19 17:25] LABS: Basophils Percent Auto 0.2 % (0-2); Hematocrit 27.8 % (42.0-52.0); Hemoglobin 8.9 g/dl (14.0-18.0); Imm Gran Abs Auto 0.12 X10*3/uL (0.00-0.03); Imm Gran Pct Auto 0.5 % (0.0-0.4); Lymphocytes Absolute Auto 0.4 X10*3/uL (1.2-4.9); Lymphocytes Percent Auto 1.6 % (20-40); MANUAL DIFF FLAG SCAN; Mean Corpuscular Hemoglobin 27.1 pg (27.0-33.0); Mean Corpuscular Volume 84.5 fL (80.0-98.0); Mean Platelet Volume 9.6 fL (9.4-12.4); Monocytes Absolute Auto 1.7 X10*3/uL (0.1-1.2); Monocytes Percent Auto 7.5 % (2-11); Neutrophils Absolute Auto 19.7 x10*3/uL (2.0-8.3); Neutrophils Percent Auto 90.2 % (45-73); Platelet Count 464 X10*3/uL (160-400); Red Blood Count 3.29 X10*6/uL (4.60-5.80); Red Cell Distribution Width 16.3 % (11.0-16.0); SCAN SMEAR FLAG 1; White Blood Count 21.9 X10*3/uL (4.8-10.8)
[2024-02-19 17:51] LABS: SLIDE REVIEW VERIFIED
[2024-02-19 17:58] LABS: Lactic Acid 1.6 mmol/L (0.5-2.0)
[2024-02-19 17:59] LABS: Influenza A PCR NEGATIVE (Negative); Influenza B PCR NEGATIVE (Negative); Resp Syncy Virus RNA Qual PCR NEGATIVE (Negative); SARS COV2 PCR INHOUSE NEGATIVE (Negative)
[2024-02-19 18:18] LABS: Alanine Aminotransferase 29 U/L (0-40); Albumin Level 2.7 g/dL (3.5-5.0); Alkaline Phosphatase 122 U/L (39-117); Anion Gap 20 (12-20); Aspartate Amino Transferase 33 U/L (5-37); Bilirubin Total 0.3 mg/dL (0.0-1.0); Blood Urea Nitrogen 95 mg/dL (9-16); Calcium 9.6 mg/dL (8.4-10.2); Carbon Dioxide 22 mmol/L (22-29); Chloride 105 mmol/L (96-108); Creatinine Clr Calc Pharmacy 15.6; Estimated Glomerular Filt Rate 16; Glucose Random 97 mg/dL (60-115); Sodium 141 mmol/L (135-145); Total Protein 6.6 g/dL (6.5-8.0)
[2024-02-19 19:00] VITALS: TEMP 36.9
[2024-02-19 19:01] VITALS: TEMP 36.9
[2024-02-19 19:02] VITALS: PULSE 115; RESP 30; TEMP 36.9; O2SAT 96
--- NOTE | 2024-02-19 19:02 | PC.NURSE ---
Pt placed on 3L o2 via NC due to desat to 86%, improved to 96%. Frequent intermittent suctioning with coughing. aware.
[2024-02-19] MEDS: Calcium Gluconate/NaCl,Iso-Osm 1 GM/50 ML PLAST..BAG IV (19:23)
[2024-02-19] MEDS: Sodium Zirconium Cyclosilicate 10 GM POWD.PACK G-TUBE (19:23)
--- NOTE | 2024-02-19 20:24 | P.HPHOSP_ITS ---
History of Present Illness Date of Service: 02/19/24 Attending physician on admission: Antoni Stark Chief Complaint: ams 73-year-old male with history of COPD, dysphagia, BPH, history of TBI, history of alcohol dependence, hyperlipidemia, hypothyroidism paranoid schizophrenia, bladder cancer with chronic Hyatt and right nephrostomy tube, AAA, renal artery stenosis presented to the ED from [facility] where he resides for long-term care for evaluation of altered mental status and attempts to pull out his right nephrostomy tube which is noted to still be in place and is making urine. The patient was recently seen in the ED and diagnosed with UTI. Urine culture from 02/10 grew Aeromonas hydrophilic sensitive to ceftriaxone, gentamicin, meropenem, and tetracyclines. via and Providencia stuartii sensitive to ceftriaxone, and Bactrim. Bactrim not administered due to renal function. Ceftriaxone was administered but discontinued due to rash/swelling per nursing staff. This morning was noted to be increasingly confused and agitated and attempting to pull out the right nephrostomy tube. He was also noted to be tachycardic and warm to touch and transferred to the ED for further evaluation. On arrival, patient febrile to 101.4, tachycardic to 124, tachypneic to 30. He did develop hypoxia in the mid 80s and is suspected to be aspirating, which per RN report from [facility], patient does chronically aspirate and as on puree and nectar thick diet as tolerated. He has a leukocytosis of 21.9. Creatinine 3.65, baseline around 2.4. BUN 95. Electrolyte low levels normal except for potassium 6.0. Lactic acid 1.6. Urinalysis pending. Negative for COVID, RSV, influenza. Chest x-ray unremarkable. CT abdomen/pelvis shows right-sided internal/external PCN/ureteral stent in good position with no significant perinephric hematoma and mild left-sided hydronephrosis with dilatation of the ureter down to the level of the bladder with Hyatt catheter in place. Incidental findings noted. In the ED, has received 2 L IVF, calcium gluconate, ibuprofen, Tylenol, ceftriaxone, and Lokelma. Review of Systems 2 Review of Systems: Yes Unobtainable due to mental status PMFSH Medical History AAA (abdominal aortic aneurysm) without rupture Hyponatremia Acute UTI Obstructed, uropathy Acute on chronic kidney failure Bladder mass Acute renal failure Pulmonary nodules COPD (chronic obstructive pulmonary disease) Encounter for screening colonoscopy Lung mass Swallowing problem Pulmonary emphysema COVID-19 vaccine series completed History of COVID-19 Resides in custodial facility History of falling Personal history of traumatic brain injury Other specified intracranial injury without loss of consciousness, subsequent encounter Paralytic gait Benign prostatic hyperplasia without lower urinary tract symptoms Pain in left hip Primary generalized (osteo)arthritis Constipation, unspecified Impulse disorder, unspecified Trichotillomania Alcohol dependence, uncomplicated Hyperlipidemia, unspecified Hypothyroidism, unspecified Weakness Unspecified lack of coordination Muscle weakness (generalized) Age-related nuclear cataract, bilateral Unspecified abnormalities of gait and mobility Personal history of COVID-19 Repeated falls Lefort i fracture, initial encounter for closed fracture Unsteadiness on feet Other abnormalities of gait and mobility Dysphagia, oropharyngeal phase Paranoid schizophrenia Family History Unknown No problems noted. Surgical History Status post percutaneous abdominal aortic aneurysm (AAA) repair Status post AAA (abdominal aortic aneurysm) repair History of facial surgery Social History Household Members: Other Housing: [facility] Housing Other:: [facility] Are you a primary healthcare economics consultant to a significant other at home: No Do you presently have visiting nurse or other home services: No Unable to assess alcohol history related to: Unknown Comment: 1:1 sitter Patient Tobacco Use Status: Current everyday Tobacco user Tobacco use type: Cigarette Cigarettes Per Day: 4 Years Smoked: 57 Smoked in Last 30 Days: Yes Second Hand Smoke Exposure: No Use of substances other than those prescribed or required for medical reasons: No Advance Directives: No Advance Directives Date on File: 12/05/22 Do you have a plan to hurt others: No Plan service: No Current occupational status: disabled Meds Allergies Allergy/AdvReac Type Severity Reaction Status Date / Time cefpodoxime Allergy Intermediate Rash Verified 02/19/24 16:47 lactose-reduced food Allergy Unknown Unknown Verified 02/19/24 16:47 [From Jevity] Active Medications: Current Medications Acetaminophen (Acetaminophen 325 Mg Tablet) 650 mg PO Q6H PRN PRN Reason: Pain, Mild (Pain Scale 1-3), fever or headache Calcium Carbonate (Calcium Carbonate 750 Mg Tab.Chew) 750 mg PO Q4H PRN PRN Reason: Heartburn Magnesium Hydroxide (Milk Of Magnesia 30 Ml Oral.Susp) 30 ml PO DAILY PRN PRN Reason: Constipation Melatonin (Melatonin 3 Mg Tablet) 6 mg PO BEDTIME PRN PRN Reason: Insomnia Sodium Chloride (0.9 % Sodium Chloride Flush 3 Ml Syringe) [facility] Medications ?Medication ?Instructions ?Recorded ?Confirmed ?Last Taken ?Type bisacodyl 10 mg rectal suppository 10 mg OK DAILY PRN Constipation 09/20/22 01/01/24 Unknown History (Dulcolax (bisacodyl)) sodium phosphates 19 gram-7 118 ml OK DAILY PRN Constipation 09/20/22 01/01/24 Unknown History gram/118 mL enema (Fleet Enema) lactulose 10 gram/15 mL oral 15 ml feeding tube BID 09/26/22 01/01/24 Unknown History solution levothyroxine 112 mcg tablet 112 mcg feeding tube DAILY@0600 09/26/22 01/01/24 Unknown History simvastatin 40 mg tablet 40 mg feeding tube BEDTIME 09/26/22 01/01/24 Unknown History polyvinyl alcohol 1.4 % eye drops 1 drp ophthalmic (eye) Q4H PRN Dry 12/05/22 01/01/24 Unknown History (Artificial Tears (polyvinyl Eyes alcohol)) sennosides 8.6 mg tablet (senna) 17.2 mg feeding tube DAILY PRN 12/05/22 01/01/24 Unknown History Constipation diazepam 2 mg tablet 3 mg feeding tube BID 10/03/23 01/01/24 Unknown History albuterol sulfate 90 mcg/actuation 2 puff inhalation Q4H PRN 10/13/23 01/01/24 Unknown History aerosol inhaler shortness of breath or wheezing bethanechol chloride 50 mg tablet 50 mg feeding tube BID 10/13/23 01/01/24 Unknown History perphenazine 8 mg tablet 8 mg feeding tube BID 10/13/23 01/01/24 Unknown History terazosin 5 mg capsule 5 mg feeding tube BEDTIME 10/13/23 01/01/24 Unknown History acetaminophen 325 mg tablet 650 mg feeding tube Q6H PRN Fever 12/16/23 01/01/24 Unknown History Or Pain midodrine 5 mg tablet 5 mg PO BID 02/19/24 Unknown History Physical Exam 2 Vital Signs and Narrative: Vital Signs: Last Vital Signs Temp 98.5 F 02/19/24 19:02 Pulse 115 H 02/19/24 19:02 Resp 30 H 02/19/24 19:02 BP 117/85 02/19/24 16:44 Pulse Ox 96 02/19/24 19:02 O2 Del Method Nasal Cannula 02/19/24 19:02 O2 Flow Rate 3 02/19/24 19:02 BMI result Body Mass Index 24.1 Constitutional - Awake and Alert, No apparent distress Eyes - PERRLA, EOMI Cardiovascular - S1S2, RRR, No edema Respiratory - Normal lung expansion, Normal respiratory effort, No respiratory distress but gargling respirations, bilateral rhonchi Gastrointestinal - NT / ND; +BS; No rebound or guarding Extremities - no calf tenderness bilaterally, no swelling Skin - Warm/Dry Neurological - Alert & nonverbal Results Labs 02/19/24 17:12 02/19/24 17:13 Labs: Laboratory Results - last 24 hr 02/19/24 02/19/24 02/19/24 17:12 17:13 17:14 MCV 84.5 MCH 27.1 MCHC 32.0 RDW 16.3 H Plt Count 464 H D MPV 9.6 Immature Gran % (Auto) 0.5 H Neut % (Auto) 90.2 H Lymph % (Auto) 1.6 L [place] % (Auto) 7.5 Eos % (Auto) 0.0 Baso % (Auto) 0.2 Lymph # (Auto) 0.4 L [place] # (Auto) 1.7 H Eos # (Auto) 0.0 Baso # (Auto) 0.0 Abs Immat Gran (auto) 0.12 H Absolute Neuts (auto) 19.7 H Absolute Nucleated RBC 0.000 Nucleated RBC % (auto) 0.0 Smear Tech's Comments VERIFIED Anion Gap 20 Estim Creat Clear Calc 15.6 Estimated GFR 16 Random Glucose 97 Lactic Acid 1.6 Calcium 9.6 D Total Bilirubin 0.3 AST 33 ALT 29 Alkaline Phosphatase 122 H Total Protein 6.6 Albumin 2.7 L Influenza Type A (PCR) NEGATIVE Influenza Type B (PCR) NEGATIVE RSV RNA Qual (PCR) NEGATIVE SARS-CoV-2 RNA (RT-PCR) NEGATIVE Imaging Radiologist's Impressions: Impressions Chest X-Ray 02/19/24 17:25 IMPRESSION: Unremarkable examination. Abdomen/Pelvis CT 02/19/24 18:08 IMPRESSION: 1. Right-sided internal/external PCN/ureteral stent in good position with no significant perinephric hematoma. 2. Mild left-sided hydronephrosis with dilatation of the ureter down to the level of the bladder. 3. Bladder wall thickening with Hyatt catheter in place. 4. Other incidental findings as described above including a 9 mm left lower lobe lung nodule, gastrostomy tube, prostatomegaly, colonic diverticulosis, small right inguinal hernia and abdominal aortic aneurysm with aorto biiliac stent graft in place. Fleischner guidelines were followed. Assessment and Plan (1) Acute hypoxemic respiratory failure: Status: Acute (2) UTI (urinary tract infection): Status: Acute (3) Aspiration into airway: Status: Acute (4) Acute kidney injury: Status: Acute (5) Hyperkalemia: Status: Acute (6) Acute metabolic encephalopathy: Status: Acute Plan 73-year-old male with history of COPD, dysphagia, BPH, history of TBI, history of alcohol dependence, hyperlipidemia, hypothyroidism paranoid schizophrenia, bladder cancer with chronic Hyatt and right nephrostomy tube, AAA, renal artery stenosis admitted for further management of acute UTI and aspiration with sepsis and hypoxemic respiratory failure # acute hypoxemic respiratory failure -secondary to aspiration. Chest x-ray and CT abdomen/pelvis do not indicate any evidence of pneumonia however, patient noted to have gurgling respirations and acute hypoxia with significant leukocytosis and fevers -Cover for aspiration pneumonia with ceftriaxone and Flagyl (initiated 02/18) -suction p.r.n. -keep NPO for now, [facility] evaluation pending. Hold tube feeds. Continue IVF -sputum culture, strep pneumo antigen, Legionella antigen pending -follow CBC, cultures -continue supplemental O2 to maintain oximetry 90-92%, wean as tolerated per protocol # acute UTI -urine culture from 02/10 positive for Aeromonas hydrophilic sensitive to ceftriaxone, gentamicin, meropenem, and tetracyclines and Providencia stuartii sensitive to ceftriaxone, and Bactrim. Initially treated with ctx but developed rash -Given lack of available alternatives, treat with CTX (initiated 02/18- avoid bactrim in setting of ckd 4 and hyperkalemia) -UA today with 3+ leukocytes, positive nitrites, 3+ blood, positive urinary sediment, 4+ bacteria. Repeat UC pending -Follow CBC/cultures # acute metabolic encephalopathy-due to infection -patient acutely agitated per LTC staff attempting to pull out right nephrostomy tube which is noted to be in the correct place -monitor mentation #Sepsis -febrile to 101.4, tachycardic, tachypneic. No lactic acidosis. KELLY due to hypovolemia/hypoperfusion from poor p.o. intake. No severe sepsis/shock -follow CBC, cultures' # acute kidney injury-likely prerenal -has CKD stage 4 at baseline -creatinine 3.6, baseline around 2.4. BUN 95 -continue IVF -avoid nephrotoxins -follow renal function/lytes # acute hyperkalemia -treated with Lokelma, IV fluids and calcium gluconate -follow lytes #Bladder cancer with obstructive uropathy -continue hyatt. R nephrostomy tube in place -monitor I&O -outpt follow up # hyperlipidemia -statin # hypothyroidism -levothyroxine # hypertension -not on antihypertensives, monitor blood pressures # COPD -no exacerbation, albuterol p.r.n. # paranoid schizophrenia -continue home meds DVT prophylaxis-heparin Full code Patient requires inpatient stay at least 2 midnights for management of acute UTI and suspected aspiration with sepsis and acute hypoxemic respiratory failure requiring IV antibiotics, supplemental O2, close monitoring of renal function given KELLY and monitoring of hemodynamics to monitor for and prevent decompensation Quality Stroke Does the patient have a stroke diagnosis?: No VTE Prior VTE?: No VTE Risk Level:: Medical - moderate - high VTE Device Contraindication: Treatment Not Indicated VTE Drug Contraindication: N/A - Med Ordered
[2024-02-19 20:39] LABS: Appearance Urine Turbid; Color Urine Orange; Glucose Urine UA Negative (Negative); Leukocyte Esterase Urine Large (3+) (Negative); Nitrite Urine Positive (Negative); Specific Gravity - Urine 1.015 (1.005-1.025); UMIC TRIGGER UACC YES; Urine Blood Large (3+) (Negative); Urine Ketones Negative (Negative); Urine Protein 300 (3+) mg/dL (Neg-Trace)
[2024-02-19 20:40] LABS: Bacteria Urine 4+ (None Seen); Hyaline Casts Urine >20 /LPF (0-2); RBC Urine >20 /HPF (0-2); UACC Culture Trigger YES; WBC Urine >50 /HPF (0-5)
[2024-02-19] MEDS: 0.9 % Sodium Chloride 1,000 ML 100 ML IVCONT (20:50)
[2024-02-19] MEDS: metroNIDAZOLE/NS 500 MG/100 ML PIGGYBACK 100 MG IV (20:53)
[2024-02-19] MEDS: Heparin Sodium,Porcine 5,000 UNIT/ML VIAL 5000 UNIT SUBCUT (20:53)
[2024-02-19 21:49] VITALS: BP 110/72; PULSE 98; RESP 23; O2SAT 93
--- NOTE | 2024-02-19 22:14 | PHA.MEDREC ---
Pharmacy Consult ? Medication Reconciliation Pharmacy has completed the medication reconciliation. Utilized list from [facility] to confirm med list.
[2024-02-19] MEDS: 0.9 % Sodium Chloride Flush 3 ML SYRINGE IVFLUSH (23:46)
[2024-02-20] VITALS (8 sets, daily range): BP systolic 96–127; BP diastolic 61–87; PULSE 81–100; RESP 16–20; TEMP 34.5–36.6; O2SAT 96–99; BMI 24.1
[2024-02-20 02:23] LABS: Glucose, Whole Blood 97 mg/dL (60-115)
[2024-02-20] MEDS: Scopolamine 1.5 MG PATCH.TD.3 EAR-BEHIND (03:27)
[2024-02-20] MEDS: metroNIDAZOLE/NS 500 MG/100 ML PIGGYBACK 100 MG IV ×3 (04:44→21:11)
[2024-02-20] MEDS: 0.9 % Sodium Chloride 1,000 ML 100 ML IVCONT (06:23)
[2024-02-20 06:50] LABS: MANUAL DIFF FLAG NO
[2024-02-20 07:14] LABS: Basophils Percent Auto 0.2 % (0-2); Eosinophils Percent Auto 0.2 % (0-4); Hematocrit 22.9 % (42.0-52.0); Hemoglobin 7.1 g/dl (14.0-18.0); Imm Gran Abs Auto 0.08 X10*3/uL (0.00-0.03); Imm Gran Pct Auto 0.6 % (0.0-0.4); Lymphocytes Absolute Auto 0.9 X10*3/uL (1.2-4.9); Lymphocytes Percent Auto 6.9 % (20-40); Mean Corpuscular Hemoglobin 26.9 pg (27.0-33.0); Mean Corpuscular Volume 86.7 fL (80.0-98.0); Mean Platelet Volume 9.7 fL (9.4-12.4); Monocytes Absolute Auto 0.8 X10*3/uL (0.1-1.2); Monocytes Percent Auto 6.4 % (2-11); Neutrophils Absolute Auto 11.1 x10*3/uL (2.0-8.3); Neutrophils Percent Auto 85.7 % (45-73); Platelet Count 332 X10*3/uL (160-400); Red Blood Count 2.64 X10*6/uL (4.60-5.80); Red Cell Distribution Width 16.5 % (11.0-16.0)
[2024-02-20 07:24] LABS: Anion Gap 17 (12-20); Blood Urea Nitrogen 83 mg/dL (9-16); Calcium 8.6 mg/dL (8.4-10.2); Carbon Dioxide 20 mmol/L (22-29); Chloride 112 mmol/L (96-108); Creatinine Clr Calc Pharmacy 16.6; Estimated Glomerular Filt Rate 18; Glucose Random 82 mg/dL (60-115); Potassium 4.8 mmol/L (3.3-5.1); Sodium 144 mmol/L (135-145)
[2024-02-20] MEDS: 0.9 % Sodium Chloride Flush 3 ML SYRINGE IVFLUSH ×3 (08:14→21:11)
[2024-02-20] MEDS: Heparin Sodium,Porcine 5,000 UNIT/ML VIAL 5000 UNIT SUBCUT (08:14)
--- NOTE | 2024-02-20 08:26 | PC.NURSE ---
0000 Rapid Response. Patient found to be pale, clammy, increase drooling with delay gag response. Pt with eyes rolling and attempting to lean forward but unable to maintain w/slumping occurring when attempting to lean forward. Temp found to be 94.0 rectally. Pt chest expansion poor with minimal chest rise, respiratory rate shallow 16-18 approximately. Rapid response called for assessment presentation and to have provider and respiratory therapist come immediately to bedside. Dr. Stark came to bedside and per nursing request placed on telemetry and continuous pulse oximetry. Respiratory assessed patient's airway and recommended patient be upright at all times and patient orally suctioned for saliva. Warming blankets provided and VS as documented.
--- NOTE | 2024-02-20 09:24 | MHC.CM.PN ---
IMM DELIVERED TO RITCHIE DARA 02/20/24, WILL BE SENT VIA CERTIFIED MAIL, RITCHIE'S WORK PHONE UPDATED [phone], TASK SENT TO REGISTRATION. DC PLAN WILL BE FOR PT TO RETURN TO [facility] WHERE PT RESIDES IN LTC, [facility]/PCP ON FILE VERIFIED.
[2024-02-20 10:09] LABS: Iron 11 mcg/dL (45-160); Percent Iron Saturation 7 % (15-50); Total Iron Binding Capacity 157 mcg/dL (228-428); Unsaturated Iron Binding 146 ug/dL
[2024-02-20 10:35] LABS: Ferritin 599 ng/mL (20-250)
--- NOTE | 2024-02-20 10:38 | MHC.CLN ---
RE: CONSULT PT DEPENDENT ON TUBE FEED FOR NUTRITION SUPPORT REVIEWED LABS NOTED PT WITH DESIRED 40% SIGNIFICANT WT GAIN X 1 YEAR. WT WITHIN NORMAL LIMITS FOR HT; BMI WNL RECOMMEND TF JEVITY 1.0 AT MAX GOAL RATE 65ML/HR WITH 120ML FREE WATER FLUSHES Q 6 HRS TO PROVIDE 1654KCALS (25KCALS/KG), 69G PROTEIN (1.05G/KG), 1783ML TOTAL FREE WATER FROM FORMULA AND FLUSH (33ML/KG) MONITOR TOLERANCE, RESIDUALS AND LYTES SEE ALSO FULL CLINICAL NUTRITION ASSESSMENT
--- NOTE | 2024-02-20 10:45 | MHC.SLORD ---
Speech Language Pathology Order Status: Received request for bedside swallow, per chart review, patient's nutrition is by TF only, has well documented HX severe dysphagia with aspiration on all liquids/textures. Dr. Nova aware, stated no need for Swallow Eval at this time, PAINTER SUPERVISOR will D/C order.
--- NOTE | 2024-02-20 11:34 | HO.PM.IMPN ---
Subjective Subjective Date of Service: 02/20/24 Interval History: Being followed for acute toxic metabolic encephalopathy, acute hypoxic respiratory failure, KELLY on CKD stage 4 and acute UTI with sepsis. Patient awake alert, answered fine when check how are you doing, this morning noted to have gurgling sounds in throat, that cleared early afternoon , had a rapid response this morning when he was noted to be pale, clammy increased drooling,, respiratory rate was 16 to 18 noted to have poor chest expansion, he was noted to be hypothermic temp of 94 degrees rectal likely treated with warm blankets, temp improved to 97.5, warm blankets discontinued. Review of Systems Unable to obtain due to mental status. Physical Exam Vital Signs: Vital Signs: Last Vital Signs Temp 97.5 F 02/20/24 08:00 Pulse 89 02/20/24 08:00 Resp 20 02/20/24 08:00 BP 104/71 02/20/24 08:00 Pulse Ox 99 02/20/24 08:00 O2 Del Method Room Air 02/20/24 08:00 O2 Flow Rate 2 02/20/24 00:00 BMI result Body Mass Index 24.1 Const: Other: General resting in bed upright, gurgling sound throat, no acute distress. Oral mucosa moist, uvula midline Neck no JVD. CVS regular rate rhythm, Respiratory lungs clear to auscultation, no respiratory distress, no wheeze, no rhonchi. Gastrointestinal abdomen soft, non tender, G-tube in place with no surrounding redness or drainage, bowel sounds audible, no guarding , no rigidity. Extremities no edema. Neuro moving all 4 extremity, speech thick Skin dry skin lower extremity Hyatt clear urine Objective Data Active Medications Acetaminophen (Acetaminophen 325 Mg Tablet) 650 mg PO Q6H PRN PRN Reason: Pain, Mild (Pain Scale 1-3), fever or headache Calcium Carbonate (Calcium Carbonate 750 Mg Tab.Chew) 750 mg PO Q4H PRN PRN Reason: Heartburn Ceftriaxone Sodium 1 gm/ (Sodium Chloride) 50 mls @ 100 mls/hr IV Q24H [facility] Metronidazole (Flagyl) 500 mg in 100 mls @ 100 mls/hr IV Q8H [facility] Last Infusion: 02/20/24 05:57 Dose: Infused Documented By: CINDY Magnesium Hydroxide (Milk Of Magnesia 30 Ml Oral.Susp) 30 ml PO DAILY PRN PRN Reason: Constipation Melatonin (Melatonin 3 Mg Tablet) 6 mg PO BEDTIME PRN PRN Reason: Insomnia Sodium Chloride (0.9 % Sodium Chloride Flush 3 Ml Syringe) 3 ml IVFLUSH QSHIFT [facility] Last Admin: 02/20/24 08:14 Dose: 3 ml Documented By: MATHEW Labs 02/20/24 15:29 02/20/24 06:11 Labs: Laboratory Results - last 24 hr 02/19/24 02/19/24 02/19/24 17:12 17:13 17:14 MCV 84.5 MCH 27.1 MCHC 32.0 RDW 16.3 H Plt Count 464 H D MPV 9.6 Immature Gran % (Auto) 0.5 H Neut % (Auto) 90.2 H Lymph % (Auto) 1.6 L [place] % (Auto) 7.5 Eos % (Auto) 0.0 Baso % (Auto) 0.2 Lymph # (Auto) 0.4 L [place] # (Auto) 1.7 H Eos # (Auto) 0.0 Baso # (Auto) 0.0 Abs Immat Gran (auto) 0.12 H Absolute Neuts (auto) 19.7 H Absolute Nucleated RBC 0.000 Nucleated RBC % (auto) 0.0 Smear Tech's Comments VERIFIED Anion Gap 20 Estim Creat Clear Calc 15.6 Estimated GFR 16 POC Glucose Random Glucose 97 Lactic Acid 1.6 Calcium 9.6 D Iron TIBC % Saturation Unsat Iron Binding Ferritin Total Bilirubin 0.3 AST 33 ALT 29 Alkaline Phosphatase 122 H Total Protein 6.6 Albumin 2.7 L Urine Color Urine Appearance Urine pH Ur Specific [place] Urine Protein Urine Glucose (UA) Urine Ketones Urine Blood Urine Nitrite Ur Leukocyte Esterase Urine RBC Urine WBC Ur Squamous Epith Cells Urine Bacteria Hyaline Casts Influenza Type A (PCR) NEGATIVE Influenza Type B (PCR) NEGATIVE RSV RNA Qual (PCR) NEGATIVE SARS-CoV-2 RNA (RT-PCR) NEGATIVE 02/19/24 02/20/24 02/20/24 20:06 01:49 06:11 MCV 86.7 MCH 26.9 L MCHC 31.0 RDW 16.5 H Plt Count 332 D MPV 9.7 Immature Gran % (Auto) 0.6 H Neut % (Auto) 85.7 H Lymph % (Auto) 6.9 L [place] % (Auto) 6.4 Eos % (Auto) 0.2 Baso % (Auto) 0.2 Lymph # (Auto) 0.9 L [place] # (Auto) 0.8 Eos # (Auto) 0.0 Baso # (Auto) 0.0 Abs Immat Gran (auto) 0.08 H Absolute Neuts (auto) 11.1 H Absolute Nucleated RBC 0.000 Nucleated RBC % (auto) 0.0 Smear Tech's Comments Anion Gap 17 Estim Creat Clear Calc 16.6 Estimated GFR 18 POC Glucose 97 Random Glucose 82 Lactic Acid Calcium 8.6 D Iron 11 L TIBC 157 L % Saturation 7 L Unsat Iron Binding 146 Ferritin 599 H Total Bilirubin AST ALT Alkaline Phosphatase Total Protein Albumin Urine Color Page A Urine Appearance Turbid Urine pH 8.0 Ur Specific [place] 1.015 Urine Protein 300 (3+) H Urine Glucose (UA) Negative Urine Ketones Negative Urine Blood Large (3+) H Urine Nitrite Positive H Ur Leukocyte Esterase Large (3+) H Urine RBC >20 H Urine WBC >50 H Ur Squamous Epith Cells 3-5 Urine Bacteria 4+ Hyaline Casts >20 Influenza Type A (PCR) Influenza Type B (PCR) RSV RNA Qual (PCR) SARS-CoV-2 RNA (RT-PCR) Microbiology Microbiology Results: Microbiology 02/19/24 20:40 Urine Culture - Preliminary Urine Catheterized - Hyatt Catheter Culture in progress. Assessment and Plan (1) Acute hyperkalemia: Status: Acute (2) Acute hypoxemic respiratory failure: Status: Acute (3) Acute metabolic encephalopathy: Status: Acute Plan 73-year-old male with history of COPD, dysphagia, BPH, history of TBI, history of alcohol dependence, hyperlipidemia, hypothyroidism paranoid schizophrenia, bladder cancer with chronic Hyatt and right nephrostomy tube, AAA, renal artery stenosis admitted for further management of acute UTI and aspiration with sepsis and hypoxemic respiratory failure # acute hypoxemic respiratory failure -likely secondary to aspiration. Chest x-ray and CT abdomen/pelvis do not indicate any evidence of pneumonia however, patient noted to have gurgling respirations and acute hypoxia with significant leukocytosis and fevers -continue IV ceftriaxone and Flagyl (initiated 02/18) -resume tube feedings ,question was getting pureed diet at [facility], keep him NPO -sputum culture, strep pneumo antigen, Legionella antigen pending Hypoxia resolved finger oximetry 99% on room air # sepsis due to acute UTI/aspiration -on admission-febrile to 101.4, tachycardic, tachypneic. No lactic acidosis. KELLY due to hypovolemia/hypoperfusion from poor p.o. intake. No severe sepsis/shock -urine culture from 02/10 positive for Aeromonas hydrophilic sensitive to ceftriaxone, gentamicin, meropenem, and tetracyclines and Providencia stuartii sensitive to ceftriaxone, and Bactrim. Initially treated with ctx but developed rash -Given lack of available alternatives, treatment continued with IV ceftriaxone initiated 02/18- avoid bactrim in setting of ckd 4 and hyperkalemia -UA today with 3+ leukocytes, positive nitrites, 3+ blood, positive urinary sediment, 4+ bacteria. Repeat UC pending -blood cultures 1/2 blood culture bottle positive for Gram-positive cocci, another 1/2 positive for Gram-negative rods -Follow CBC/final blood cultures cultures # acute metabolic encephalopathy-due to infection resolving patient more interactive , continue monitoring # acute on chronic normocytic anemia Stool occult test negative, iron studies showed low iron saturation and iron, elevated ferritin likely due to inflammation Will transfuse 1 unit of packed RBC receive consent from Emilie Tirado covering for guardian Latrice Jaramillo. Follow CBC. # acute kidney injury on CKD 4-likely prerenal -creatinine 3.6, baseline around 2.4. BUN 95, renal function gradually improving, DC IV fluids -avoid nephrotoxins -follow renal function/lytes # acute hyperkalemia -resolved, treated with Lokelma, IV fluids and calcium gluconate #Bladder cancer with obstructive uropathy -continue hyatt. R nephrostomy tube in place, resume terazosin and bethanechol # hyperlipidemia -statin # hypothyroidism -levothyroxine # hypertension -not on antihypertensives, monitor blood pressures # COPD -no exacerbation, albuterol p.r.n. # paranoid schizophrenia -resume home meds, reduce dose of diazepam to 2 mg b.i.d. DVT prophylaxis-dc heparin due to anemia and placed on compression boots Full code Patient requires continue inpatient stay for management of acute UTI and suspected aspiration with sepsis requiring IV antibiotics, close monitoring of renal function given KELLY and monitoring of hemodynamics to monitor for and prevent decompensation Quality Stroke Does the patient have a stroke diagnosis?: No VTE Prior VTE?: No VTE Risk Level:: Medical - moderate - high VTE Device Contraindication: Treatment Not Indicated VTE Drug Contraindication: N/A - Med Ordered
[2024-02-20 16:04] LABS: Hematocrit 22.1 % (42.0-52.0); Mean Corpuscular HGB Conc 30.8 g/dl (31.0-36.0); Mean Corpuscular Hemoglobin 26.9 pg (27.0-33.0); Mean Corpuscular Volume 87.4 fL (80.0-98.0); Mean Platelet Volume 9.7 fL (9.4-12.4); Platelet Count 334 X10*3/uL (160-400); Red Blood Count 2.53 X10*6/uL (4.60-5.80); Red Cell Distribution Width 16.5 % (11.0-16.0); White Blood Count 9.8 X10*3/uL (4.8-10.8)
[2024-02-20 16:11] LABS: Hemoglobin 6.8 g/dl (14.0-18.0)
[2024-02-20] MEDS: vancomycin HCL 1,000 MG, vancomycin HCL 750 MG in 0.9 % Sodium Chloride 500 ML 267.5 MG IV (16:30)
--- NOTE | 2024-02-20 17:19 | PHA.PROG ---
Addendum entered by Thong [facility] 02/20/24 17:21: next trough 02/21 @ 1400 Original Note: Admission Date/Time: February 19, 2024 20:12 Indication: bacteremia Weight in k.771 kg Serum Creatinine - Last 168 Hours 02/19/24 02/20/24 17:13 06:11 Creatinine 3.65 H 3.43 H Estimated CrCl and GFR - Last 168 Hours 02/19/24 02/20/24 17:13 06:11 Estim Creat Clear Calc 15.6 16.6 Estimated GFR 16 18 Vancomycin Loading Dose: 500 Current Vancomycin Dosing Regimen: q24h Vancomycin Monitoring using AUC goal of 400 - 600 range with trough as surrogate marker: 508 Date and Time for next Vancomycin Level to be drawn: 02/20 @ 1400 Pharmacist Comments on Vancomycin Plan: Vancomycin dosing will take advantage of [employer] as a clinical decision support tool that uses Bayesian modeling to calculate individual patient's pharmacokinetic parameters and forecast the patient's drug concentration time course with the target goal AUC 24 range of 400 - 600 mg/L/hr.
[2024-02-20] MEDS: cefTRIAXone sodium 1 GM in 0.9 % Sodium Chloride 50 ML IV (18:56)
[2024-02-20] MEDS: Doxazosin Mesylate 2 MG TABLET 4 MG G-TUBE (21:10)
[2024-02-20] MEDS: Perphenazine 8 MG TABLET G-TUBE (21:10)
[2024-02-20] MEDS: diazePAM 2 MG TABLET G-TUBE (21:11)
[2024-02-20] MEDS: Bethanechol Chloride 25 MG TABLET 50 MG G-TUBE (21:11)
[2024-02-21 02:35] VITALS: BP 131/85; PULSE 94; RESP 16; TEMP 36.2
[2024-02-21 04:00] VITALS: BP 136/85; PULSE 97; RESP 20; TEMP 36.3; O2SAT 100
[2024-02-21 06:49] LABS: Hematocrit 26.5 % (42.0-52.0); Hemoglobin 8.2 g/dl (14.0-18.0); Mean Corpuscular HGB Conc 30.9 g/dl (31.0-36.0); Mean Corpuscular Hemoglobin 26.8 pg (27.0-33.0); Mean Corpuscular Volume 86.6 fL (80.0-98.0); Mean Platelet Volume 9.7 fL (9.4-12.4); Platelet Count 374 X10*3/uL (160-400); Red Blood Count 3.06 X10*6/uL (4.60-5.80)
[2024-02-21 06:59] LABS: Blood Urea Nitrogen 66 mg/dL (9-16)
[2024-02-21 07:00] LABS: Anion Gap 15 (12-20); Calcium 8.9 mg/dL (8.4-10.2); Carbon Dioxide 21 mmol/L (22-29); Chloride 115 mmol/L (96-108); Creatinine Clr Calc Pharmacy 21.9; Estimated Glomerular Filt Rate 24; Glucose Random 118 mg/dL (60-115); Potassium 3.8 mmol/L (3.3-5.1)
[2024-02-21] MEDS: Levothyroxine Sodium 112 MCG TABLET G-TUBE (07:00)
[2024-02-21] MEDS: metroNIDAZOLE/NS 500 MG/100 ML PIGGYBACK 100 MG IV ×3 (07:00→22:19)
[2024-02-21 07:01] LABS: Sodium 147 mmol/L (135-145)
[2024-02-21 07:36] VITALS: BP 129/60; PULSE 94; RESP 20; TEMP 36.4
[2024-02-21] MEDS: 0.9 % Sodium Chloride Flush 3 ML SYRINGE IVFLUSH ×3 (09:30→22:21)
[2024-02-21] MEDS: diazePAM 2 MG TABLET G-TUBE ×2 (09:30→22:20)
[2024-02-21] MEDS: Bethanechol Chloride 25 MG TABLET 50 MG G-TUBE ×2 (09:30→22:20)
[2024-02-21] MEDS: Perphenazine 8 MG TABLET G-TUBE ×2 (09:30→22:20)
[2024-02-21 11:01] VITALS: BP 133/85; PULSE 86; RESP 18; TEMP 36.4; O2SAT 96
--- NOTE | 2024-02-21 11:31 | MHC.CM.PN ---
Per rounds, pt is not yet ready for DC, anticipate he can return to [facility] on 02/22/24, via BLS. Clincal update to be faxed today to [phone].
--- NOTE | 2024-02-21 11:44 | MHC.CLN ---
F/U REVIEWED LABS PT CURRENTLY RECEIVING JEVITY 1.0 AT 60ML/HR (ALMOST TO GOAL RATE) TOLERATING WELL PER NSG RECOMMEND TF JEVITY 1.0 AT MAX GOAL RATE 65ML/HR WITH 240ML FREE WATER FLUSHES Q 8HRS TO PROVIDE 1654KCALS (25KCALS/KG), 69G PROTEIN (1.05G/KG), 2022ML TOTAL FREE WATER FROM FORMULA AND FLUSH (31ML/KG) MONITOR TOLERANCE, RESIDUALS AND LYTES
--- NOTE | 2024-02-21 13:02 | HO.PM.IMPN ---
Subjective Subjective Date of Service: 02/21/24 Interval History: Being followed for acute encephalopathy and sepsis due to UTI. Patient more awake alert, conversing, no acute events overnight. Review of Systems Unable to obtain full review of system due to mental status and speech impairment Physical Exam Vital Signs: Vital Signs: Last Vital Signs Temp 97.5 F 02/21/24 11:01 Pulse 86 02/21/24 11:01 Resp 18 02/21/24 11:01 BP 133/85 02/21/24 11:01 Pulse Ox 96 02/21/24 11:01 O2 Del Method Nasal Cannula 02/21/24 11:01 O2 Flow Rate 2 02/21/24 11:01 BMI result Body Mass Index 24.1 Const: Other: General resting in bed upright, no acute distress. Neck no JVD. CVS regular rate rhythm, Respiratory lungs clear to auscultation, no respiratory distress, no wheeze, no rhonchi. Gastrointestinal abdomen soft, non tender, G-tube in place with no surrounding redness or drainage, bowel sounds audible, no guarding , no rigidity. Extremities no edema. Neuro moving all 4 extremity, speech thick Skin dry skin lower extremity Hyatt clear urine Objective Data Active Medications Acetaminophen (Acetaminophen 325 Mg Tablet) 650 mg PO Q6H PRN PRN Reason: Pain, Mild (Pain Scale 1-3), fever or headache Albuterol Sulfate (Albuterol Sulfate 90 Mcg 8 Gm Inhaler) 2 puff INHALE Q4H PRN PRN Reason: shortness of breath or wheezing Artificial Tears (Artificial Tears 15 Ml Drops) 1 drop EYE-BOTH Q4H PRN PRN Reason: Dry Eyes Bethanechol Chloride (Bethanechol Chloride 25 Mg Tablet) 50 mg G-TUBE BID [facility] Last Admin: 02/21/24 09:30 Dose: 50 mg Documented By: MATHEW Calcium Carbonate (Calcium Carbonate 750 Mg Tab.Chew) 750 mg PO Q4H PRN PRN Reason: Heartburn Diazepam (Diazepam 2 Mg Tablet) 2 mg G-TUBE BID [facility] Last Admin: 02/21/24 09:30 Dose: 2 mg Documented By: MATHEW Doxazosin Mesylate (Doxazosin Mesylate 2 Mg Tablet) 4 mg G-TUBE BEDTIME [facility] Last Admin: 02/20/24 21:10 Dose: 4 mg Documented By: AMBER Ceftriaxone Sodium 1 gm/ (Sodium Chloride) 50 mls @ 100 mls/hr IV Q24H [facility] Last Infusion: 02/20/24 19:55 Dose: Infused Documented By: MATHEW Metronidazole (Flagyl) 500 mg in 100 mls @ 100 mls/hr IV Q8H [facility] Last Infusion: 02/21/24 13:01 Dose: Infused Documented By: MATHEW Levothyroxine Sodium (Levothyroxine Sodium 112 Mcg Tablet) 112 mcg G-TUBE DAILY@0600 [facility] Last Admin: 02/21/24 07:00 Dose: 112 mcg Documented By: AMBER Magnesium Hydroxide (Milk Of Magnesia 30 Ml Oral.Susp) 30 ml PO DAILY PRN PRN Reason: Constipation Melatonin (Melatonin 3 Mg Tablet) 6 mg PO BEDTIME PRN PRN Reason: Insomnia Perphenazine (Perphenazine 8 Mg Tablet) 8 mg G-TUBE BID [facility] Last Admin: 02/21/24 09:30 Dose: 8 mg Documented By: MATHEW Pharmacy Consult (Consult Rx Vancomycin Dosing) 1 each MISCELLANE DAILY PRN PRN Reason: Consult order Sodium Chloride (0.9 % Sodium Chloride Flush 3 Ml Syringe) 3 ml IVFLUSH QSHIFT [facility] Last Admin: 02/21/24 09:30 Dose: 3 ml Documented By: MATHEW Labs 02/21/24 05:51 02/21/24 05:51 Labs: Laboratory Results - last 24 hr 02/20/24 02/20/24 02/21/24 15:29 17:35 05:51 MCV 87.4 86.6 MCH 26.9 L 26.8 L MCHC 30.8 L 30.9 L RDW 16.5 H 16.0 Plt Count 334 374 MPV 9.7 9.7 Absolute Nucleated RBC 0.000 0.000 Nucleated RBC % (auto) 0.0 0.0 Anion Gap 15 Estim Creat Clear Calc 21.9 Estimated GFR 24 Random Glucose 118 H Calcium 8.9 Blood Type A Negative Antibody Screen NEGATIVE Crossmatch See Detail Microbiology Microbiology Results: Microbiology 02/19/24 17:02 Blood Culture - Final Blood - Venous Coag negative Staphylococcus 02/19/24 17:01 Blood Culture - Preliminary Blood - Venous Prelim: GNR Gram Stain only Assessment and Plan (1) Acute hyperkalemia: Status: Acute (2) Acute hypoxemic respiratory failure: Status: Acute (3) Acute metabolic encephalopathy: Status: Acute Plan 73-year-old male with history of COPD, dysphagia, BPH, history of TBI, history of alcohol dependence, hyperlipidemia, hypothyroidism paranoid schizophrenia, bladder cancer with chronic Hyatt and right nephrostomy tube, AAA, renal artery stenosis admitted for further management of acute UTI and aspiration with sepsis and hypoxemic respiratory failure # acute hypoxemic respiratory failure -likely secondary to aspiration. Chest x-ray and CT abdomen/pelvis do not indicate any evidence of pneumonia however, patient noted to have gurgling respirations and acute hypoxia with significant leukocytosis and fevers -continue IV ceftriaxone and Flagyl (initiated 02/18) -cont. tube feedings ,question was getting pureed diet at [facility], keep him NPO -sputum culture, strep pneumo antigen, Legionella antigen pending Hypoxia resolved # sepsis due to acute UTI/aspiration -on admission-febrile to 101.4, tachycardic, tachypneic. No lactic acidosis. KELLY due to hypovolemia/hypoperfusion from poor p.o. intake. No severe sepsis/shock -urine culture from 02/10 positive for Aeromonas hydrophilic sensitive to ceftriaxone, gentamicin, meropenem, and tetracyclines and Providencia stuartii sensitive to ceftriaxone, and Bactrim. Initially treated with ctx but developed rash -Given lack of available alternatives, treatment continued with IV ceftriaxone initiated 02/18- avoid bactrim in setting of ckd 4 and hyperkalemia -UA today with 3+ leukocytes, positive nitrites, 3+ blood, positive urinary sediment, 4+ bacteria. Repeat UC pending -blood cultures 1/2 blood culture bottle positive for coagulase-negative Staph will DC vancomycin , another 1/2 positive for Gram-negative rods, await final culture report # acute metabolic encephalopathy-due to infection resolved patient seems to be at baseline. # acute on chronic normocytic anemia Stool occult test negative, iron studies showed low iron saturation and iron, elevated ferritin likely due to inflammation Admitted crit improved after 1 unit of packed RBC # acute kidney injury on CKD 4-likely prerenal -creatinine 3.6, baseline around 2.4. BUN 95, creatinine improved to 2.6, status post IV fluids ,avoid nephrotoxins -follow renal function/lytes # acute hyperkalemia -resolved, treated with Lokelma, IV fluids and calcium gluconate #Bladder cancer with obstructive uropathy -continue hyatt. R nephrostomy tube in place, resume terazosin and bethanechol # hyperlipidemia -statin # hypothyroidism -levothyroxine # hypertension -not on antihypertensives, monitor blood pressures # COPD -no exacerbation, albuterol p.r.n. # paranoid schizophrenia -resume home meds, reduced dose of diazepam to 2 mg b.i.d. DVT prophylaxis- on compression boots Full code Patient requires continue inpatient stay for management of acute UTI and suspected aspiration with sepsis requiring IV antibiotics, close monitoring of renal function given KELLY and monitoring of hemodynamics to monitor for and prevent decompensation Quality Stroke Does the patient have a stroke diagnosis?: No VTE Prior VTE?: No VTE Risk Level:: Medical - moderate - high VTE Device Contraindication: Treatment Not Indicated VTE Drug Contraindication: N/A - Med Ordered
[2024-02-21] MEDS: Dextrose 5 % 1,000 ML 100 ML IVCONT (13:51)
[2024-02-21 16:00] VITALS: BP 136/80; PULSE 84; TEMP 36.2; O2SAT 96
[2024-02-21] MEDS: cefTRIAXone sodium 1 GM in 0.9 % Sodium Chloride 50 ML IV (17:42)
[2024-02-21 20:00] VITALS: BP 157/92; PULSE 100; RESP 20; TEMP 36.8; O2SAT 97
[2024-02-21] MEDS: Doxazosin Mesylate 2 MG TABLET 4 MG G-TUBE (22:20)
--- NOTE | 2024-02-21 22:24 | P.CNID_ITS ---
History of Present Illness Data of Consult Service Date: 02/21/24 Requesting physician: Joshua Nova Primary Care Provider: Unknown Physician HPI Reason for consult: bacteriuria He presents with weakness He has pulled out Holland apparently. He has bladder cancer and stents. He has gram negative urine pending. Gram positive blood contaminant coagulase negative staph. Review of Systems 2 Review of Systems: Yes all other systems are reviewed and are negative PMFSH Past Medical History Medical History AAA (abdominal aortic aneurysm) without rupture Hyponatremia Acute UTI Obstructed, uropathy Acute on chronic kidney failure Bladder mass Acute renal failure Pulmonary nodules COPD (chronic obstructive pulmonary disease) Encounter for screening colonoscopy Lung mass Swallowing problem Pulmonary emphysema COVID-19 vaccine series completed History of COVID-19 Resides in group home facility History of falling Personal history of traumatic brain injury Other specified intracranial injury without loss of consciousness, subsequent encounter Paralytic gait Benign prostatic hyperplasia without lower urinary tract symptoms Pain in left hip Primary generalized (osteo)arthritis Constipation, unspecified Impulse disorder, unspecified Trichotillomania Alcohol dependence, uncomplicated Hyperlipidemia, unspecified Hypothyroidism, unspecified Weakness Unspecified lack of coordination Muscle weakness (generalized) Age-related nuclear cataract, bilateral Unspecified abnormalities of gait and mobility Personal history of COVID-19 Repeated falls Lefort i fracture, initial encounter for closed fracture Unsteadiness on feet Other abnormalities of gait and mobility Dysphagia, oropharyngeal phase Paranoid schizophrenia Family History Family History Unknown No problems noted. Family history: reviewed and not pertinent Surgical History Surgical History Status post percutaneous abdominal aortic aneurysm (AAA) repair Status post AAA (abdominal aortic aneurysm) repair History of facial surgery Social History Social History Household Members: Other Housing: Long Term Housing Other:: [facility] Are you a primary post acute care nurse practitioner to a significant other at home: No Do you presently have visiting nurse or other home services: Yes Unable to assess alcohol history related to: Unknown Comment: 1:1 sitter Patient Tobacco Use Status: Tobacco use Unknown Tobacco use type: Cigarette Cigarettes Per Day: 4 Years Smoked: 57 Second Hand Smoke Exposure: No Advance Directives Date on File: 12/05/22 service: No Current occupational status: disabled Meds Allergies Allergy/AdvReac Type Severity Reaction Status Date / Time cefpodoxime Allergy Intermediate Rash Verified 02/19/24 16:47 lactose-reduced food Allergy Unknown Unknown Verified 02/19/24 16:47 [From [facility]] Active Medications: Current Medications Acetaminophen (Acetaminophen 325 Mg Tablet) 650 mg PO Q6H PRN PRN Reason: Pain, Mild (Pain Scale 1-3), fever or headache Albuterol Sulfate (Albuterol Sulfate 90 Mcg 8 Gm Inhaler) 2 puff INHALE Q4H PRN PRN Reason: shortness of breath or wheezing Artificial Tears (Artificial Tears 15 Ml Drops) 1 drop EYE-BOTH Q4H PRN PRN Reason: Dry Eyes Bethanechol Chloride (Bethanechol Chloride 25 Mg Tablet) 50 mg G-TUBE BID [facility] Last Admin: 02/21/24 09:30 Dose: 50 mg Calcium Carbonate (Calcium Carbonate 750 Mg Tab.Chew) 750 mg PO Q4H PRN PRN Reason: Heartburn Diazepam (Diazepam 2 Mg Tablet) 2 mg G-TUBE BID [facility] Last Admin: 02/21/24 09:30 Dose: 2 mg Doxazosin Mesylate (Doxazosin Mesylate 2 Mg Tablet) 4 mg G-TUBE BEDTIME [facility] Last Admin: 02/20/24 21:10 Dose: 4 mg Ceftriaxone Sodium 1 gm/ (Sodium Chloride) 50 mls @ 100 mls/hr IV Q24H [facility] Last Infusion: 02/21/24 18:48 Dose: Infused Metronidazole (Flagyl) 500 mg in 100 mls @ 100 mls/hr IV Q8H [facility] Last Infusion: 02/21/24 13:01 Dose: Infused Dextrose (D5w) 1,000 mls @ 100 mls/hr IVCONT .Q10H [facility] Stop: 02/21/24 23:14 Last Admin: 02/21/24 13:51 Dose: 100 mls/hr Levothyroxine Sodium (Levothyroxine Sodium 112 Mcg Tablet) 112 mcg G-TUBE DAILY@0600 [facility] Last Admin: 02/21/24 07:00 Dose: 112 mcg Magnesium Hydroxide (Milk Of Magnesia 30 Ml Oral.Susp) 30 ml PO DAILY PRN PRN Reason: Constipation Melatonin (Melatonin 3 Mg Tablet) 6 mg PO BEDTIME PRN PRN Reason: Insomnia Perphenazine (Perphenazine 8 Mg Tablet) 8 mg G-TUBE BID [facility] Last Admin: 02/21/24 09:30 Dose: 8 mg Sodium Chloride (0.9 % Sodium Chloride Flush 3 Ml Syringe) 3 ml IVFLUSH QSHIFT [facility] Last Admin: 02/21/24 17:42 Dose: 3 ml Home Medications ?Medication ?Instructions ?Recorded ?Confirmed ?Last Taken ?Type bisacodyl 10 mg rectal suppository 10 mg GA DAILY PRN Constipation 09/20/22 02/19/24 Unknown History (Dulcolax (bisacodyl)) sodium phosphates 19 gram-7 118 ml GA DAILY PRN Constipation 09/20/22 02/19/24 Unknown History gram/118 mL enema (Fleet Enema) lactulose 10 gram/15 mL oral 15 ml feeding tube BID 09/26/22 02/19/24 Unknown History solution levothyroxine 112 mcg tablet 112 mcg feeding tube DAILY@0600 09/26/22 02/19/24 Unknown History simvastatin 40 mg tablet 40 mg feeding tube BEDTIME 09/26/22 02/19/24 Unknown History polyvinyl alcohol 1.4 % eye drops 1 drp ophthalmic (eye) Q4H PRN Dry 12/05/22 02/19/24 Unknown History (Artificial Tears (polyvinyl Eyes alcohol)) sennosides 8.6 mg tablet (senna) 17.2 mg feeding tube DAILY PRN 12/05/22 02/19/24 Unknown History Constipation diazepam 2 mg tablet 3 mg feeding tube BID 10/03/23 02/19/24 Unknown History albuterol sulfate 90 mcg/actuation 2 puff inhalation Q4H PRN 10/13/23 02/19/24 Unknown History aerosol inhaler shortness of breath or wheezing bethanechol chloride 50 mg tablet 50 mg feeding tube BID 10/13/23 02/19/24 Unknown History perphenazine 8 mg tablet 8 mg feeding tube BID 10/13/23 02/19/24 Unknown History terazosin 5 mg capsule 5 mg feeding tube BEDTIME 10/13/23 02/19/24 Unknown History acetaminophen 325 mg tablet 650 mg feeding tube Q6H PRN Fever 12/16/23 02/19/24 Unknown History Or Pain midodrine 5 mg tablet 5 mg PO BID PRN Hypotension 02/19/24 02/19/24 Unknown History Physical Exam 2 Vital Signs: Vital Signs: Last Vital Signs Temp 98.3 F 02/21/24 20:00 Pulse 100 02/21/24 20:00 Resp 20 02/21/24 20:00 BP 157/92 H 02/21/24 20:00 Pulse Ox 97 02/21/24 20:00 O2 Del Method Nasal Cannula 02/21/24 20:00 O2 Flow Rate 2 02/21/24 20:00 BMI result Body Mass Index 24.1 Const: General: cooperative HEENT: Head: Yes normal to inspection Face and sinus: Yes normal facial exam Mouth: Normal oral and palatal mucosa present Teeth and gingiva: d entition normal Eyes: General: appearance normal, both eyes and all related structures P upils: Equal, round and reactive pupils present Resp: Effort & Inspection: normal respiratory effort Cardio: Rate: regular rate Rhythm: regular rhythm GI: Palpation (GI): Soft to palpation and nontender : General: Yes no CVA tenderness Back/Spine/Pelvis: Back: no CVA tenderness Skin: General skin exam: no rashes or lesions noted Neuro: General: moves all extremities Cranial nerves: Yes Equal, round and reactive pupils present Extrem: General: Yes normal to inspection Psych: Appearance: grossly normal Results Labs 02/21/24 05:51 02/21/24 05:51 Labs: Short CBC 02/21/24 Range/Units 05:51 WBC 9.0 (4.8-10.8) X10*3/uL Hgb 8.2 L D (14.0-18.0) g/dl Hct 26.5 L (42.0-52.0) % Plt Count 374 (160-400) X10*3/uL BMP 02/21/24 05:51 Sodium 147 H Potassium 3.8 D Chloride 115 H Carbon Dioxide 21 L BUN 66 H Creatinine 2.61 H Calcium 8.9 Microbiology Microbiology Results: Microbiology 02/19/24 20:40 Urine Catheterized - Holland Catheter Urine Culture - Preliminary Gram negative shady 02/19/24 17:02 Blood - Venous Blood Culture - Final Coag negative Staphylococcus 02/19/24 17:01 Blood - Venous Blood Culture - Preliminary Prelim: GNR Gram Stain only Assessment and Plan (1) UTI (urinary tract infection): Status: Acute (2) Acute hypoxemic respiratory failure: Status: Acute Plan Ceftriaxone pending urine culture and total treatment likely 7-10 d This is likely cause of infectious concern. CXR is unremarkable,aspiration secretions if any may be chemical and no need for Flagyl so will stop.
[2024-02-22] VITALS: BP 128/91; PULSE 100; RESP 20; TEMP 37.1; O2SAT 98
[2024-02-22 04:00] VITALS: BP 120/82; PULSE 100; RESP 20; TEMP 37; O2SAT 96
[2024-02-22] MEDS: Levothyroxine Sodium 112 MCG TABLET G-TUBE (05:40)
[2024-02-22 07:28] LABS: Anion Gap 14 (12-20); Blood Urea Nitrogen 62 mg/dL (9-16); Calcium 8.8 mg/dL (8.4-10.2); Carbon Dioxide 19 mmol/L (22-29); Chloride 114 mmol/L (96-108); Creatinine Clr Calc Pharmacy 25.3; Estimated Glomerular Filt Rate 29; Glucose Random 104 mg/dL (60-115); Potassium 3.9 mmol/L (3.3-5.1); Sodium 143 mmol/L (135-145)
[2024-02-22 07:33] VITALS: BP 134/87; PULSE 96; RESP 18; TEMP 36.8; O2SAT 95
[2024-02-22] MEDS: diazePAM 2 MG TABLET G-TUBE ×2 (10:00→21:13)
[2024-02-22] MEDS: Bethanechol Chloride 25 MG TABLET 50 MG G-TUBE ×2 (10:00→21:13)
[2024-02-22] MEDS: Perphenazine 8 MG TABLET G-TUBE ×2 (10:00→21:13)
[2024-02-22] MEDS: 0.9 % Sodium Chloride Flush 3 ML SYRINGE IVFLUSH ×3 (10:00→21:20)
--- NOTE | 2024-02-22 10:21 | HO.PM.IMPN ---
Subjective Subjective Date of Service: 02/22/24 Interval History: Being followed for UTI with sepsis when asked how do you feel, he answered doing fine, no acute events overnight, tolerating diet, no fevers, no chills, stable oxygenation. Review of Systems Unable to obtain detailed review of system due to mental status. Physical Exam Vital Signs: Vital Signs: Last Vital Signs Temp 98.2 F 02/22/24 07:33 Pulse 96 02/22/24 07:33 Resp 18 02/22/24 07:33 BP 134/87 02/22/24 07:33 Pulse Ox 95 02/22/24 07:33 O2 Del Method Nasal Cannula 02/22/24 07:33 O2 Flow Rate 2 02/22/24 07:33 BMI result Body Mass Index 24.1 Const: Other: General resting in bed upright, no acute distress. Neck no JVD. CVS regular rate rhythm, Respiratory lungs clear to auscultation, no respiratory distress, no wheeze, no rhonchi. Gastrointestinal abdomen soft, non tender, G-tube in place with no surrounding redness or drainage, bowel sounds audible, no guarding , no rigidity. Extremities no edema. Neuro moving all 4 extremity, speech thick Skin dry skin lower extremity Hyatt clear urine Objective Data Active Medications Acetaminophen (Acetaminophen 325 Mg Tablet) 650 mg PO Q6H PRN PRN Reason: Pain, Mild (Pain Scale 1-3), fever or headache Albuterol Sulfate (Albuterol Sulfate 90 Mcg 8 Gm Inhaler) 2 puff INHALE Q4H PRN PRN Reason: shortness of breath or wheezing Artificial Tears (Artificial Tears 15 Ml Drops) 1 drop EYE-BOTH Q4H PRN PRN Reason: Dry Eyes Bethanechol Chloride (Bethanechol Chloride 25 Mg Tablet) 50 mg G-TUBE BID [facility] Last Admin: 02/22/24 10:00 Dose: 50 mg Documented By: ARI Calcium Carbonate (Calcium Carbonate 750 Mg Tab.Chew) 750 mg PO Q4H PRN PRN Reason: Heartburn Diazepam (Diazepam 2 Mg Tablet) 2 mg G-TUBE BID [facility] Last Admin: 02/22/24 10:00 Dose: 2 mg Documented By: ARI Doxazosin Mesylate (Doxazosin Mesylate 2 Mg Tablet) 4 mg G-TUBE BEDTIME [facility] Last Admin: 02/21/24 22:20 Dose: 4 mg Documented By: AVIVA Ceftriaxone Sodium 1 gm/ (Sodium Chloride) 50 mls @ 100 mls/hr IV Q24H [facility] Last Infusion: 02/21/24 18:48 Dose: Infused Documented By: MATHEW Levothyroxine Sodium (Levothyroxine Sodium 112 Mcg Tablet) 112 mcg G-TUBE DAILY@0600 [facility] Last Admin: 02/22/24 05:40 Dose: 112 mcg Documented By: AVIVA Magnesium Hydroxide (Milk Of Magnesia 30 Ml Oral.Susp) 30 ml PO DAILY PRN PRN Reason: Constipation Melatonin (Melatonin 3 Mg Tablet) 6 mg PO BEDTIME PRN PRN Reason: Insomnia Perphenazine (Perphenazine 8 Mg Tablet) 8 mg G-TUBE BID [facility] Last Admin: 02/22/24 10:00 Dose: 8 mg Documented By: ARI Sodium Chloride (0.9 % Sodium Chloride Flush 3 Ml Syringe) 3 ml IVFLUSH QSHIFT [facility] Last Admin: 02/22/24 10:00 Dose: 3 ml Documented By: ARI Labs 02/21/24 05:51 02/22/24 05:48 Labs: Laboratory Results - last 24 hr 02/22/24 02/22/24 05:48 06:38 Hold Purple Top SEE NOTE Anion Gap 14 Estim Creat Clear Calc 25.3 Estimated GFR 29 Random Glucose 104 Calcium 8.8 Microbiology Microbiology Results: Microbiology 02/19/24 17:01 Blood Culture - Preliminary Blood - Venous Prelim: GNR Gram Stain only 02/19/24 20:40 Urine Culture - Final Urine Catheterized - Hyatt Catheter Providencia stuartii 02/19/24 17:02 Blood Culture - Final Blood - Venous Coag negative Staphylococcus Assessment and Plan (1) Acute hyperkalemia: Status: Acute (2) Acute hypoxemic respiratory failure: Status: Acute (3) Acute metabolic encephalopathy: Status: Acute Plan 73-year-old male with history of COPD, dysphagia, BPH, history of TBI, history of alcohol dependence, hyperlipidemia, hypothyroidism paranoid schizophrenia, bladder cancer with chronic Hyatt and right nephrostomy tube, AAA, renal artery stenosis admitted for further management of acute UTI and aspiration with sepsis and hypoxemic respiratory failure # acute hypoxemic respiratory failure -likely secondary to aspiration. Chest x-ray and CT abdomen/pelvis do not indicate any evidence of pneumonia however, patient noted to have gurgling respirations and acute hypoxia with significant leukocytosis and fevers -continue IV ceftriaxone and Flagyl (initiated 02/18) dc flagyl -cont. tube feedings ,question was getting pureed diet at skilled nursing, now NPO -strep pneumo antigen, Legionella antigen pending/follow o2 # sepsis due to acute UTI/aspiration -on admission-febrile to 101.4, tachycardic, tachypneic. No lactic acidosis. KELLY due to hypovolemia/hypoperfusion from poor p.o. intake. No severe sepsis/shock -sepsis resolved, WBC normalized -urine culture from 02/10 positive for Aeromonas hydrophilic sensitive to ceftriaxone, gentamicin, meropenem, and tetracyclines and Providencia stuartii sensitive to ceftriaxone, and Bactrim. Initially treated with ctx but developed rash -Given lack of available alternatives, treatment continued with IV ceftriaxone initiated 02/18- avoid bactrim in setting of ckd 4 and hyperkalemia Repeat UC pending grew Providencia stuartii -blood cultures 1/2 blood culture bottle positive for coagulase-negative Staph , another 1/2 positive for Gram-negative rods, await final culture report # acute metabolic encephalopathy-due to infection resolved patient seems to be at baseline. # acute on chronic normocytic anemia Stool occult test negative, iron studies showed low iron saturation and iron, elevated ferritin likely due to inflammation hematocrit improved after 1 unit of packed RBC # acute kidney injury on CKD 4-likely prerenal -creatinine 3.6, baseline around 2.4. BUN 95, creatinine improved to 2.6, status post IV fluids ,avoid nephrotoxins -follow renal function/lytes # acute hyperkalemia -resolved, treated with Lokelma, IV fluids and calcium gluconate #Bladder cancer with obstructive uropathy -continue hyatt. R nephrostomy tube in place, on terazosin and bethanechol # hyperlipidemia -statin # hypothyroidism -levothyroxine # hypertension -not on antihypertensives, monitor blood pressures # COPD -no exacerbation, albuterol p.r.n. # paranoid schizophrenia -resume home meds, reduced dose of diazepam to 2 mg b.i.d. DVT prophylaxis- on compression boots Full code Patient requires continue inpatient stay for management of acute UTI and suspected aspiration with sepsis requiring IV antibiotics, close monitoring of renal function given KELLY and monitoring of hemodynamics to monitor for and prevent decompensation Quality Stroke Does the patient have a stroke diagnosis?: No VTE Prior VTE?: No VTE Risk Level:: Medical - moderate - high VTE Device Contraindication: Treatment Not Indicated VTE Drug Contraindication: N/A - Med Ordered
[2024-02-22 11:27] LABS: OBS Int Ctl Valid YES; OBS1 NEGATIVE (NEGATIVE)
[2024-02-22 11:52] VITALS: BP 145/78; PULSE 91; RESP 20; TEMP 36.3; O2SAT 98
[2024-02-22 16:00] VITALS: BP 138/84; PULSE 83; RESP 20; TEMP 36.4; O2SAT 98
[2024-02-22] MEDS: cefTRIAXone sodium 1 GM in 0.9 % Sodium Chloride 50 ML IV (16:39)
[2024-02-22 20:00] VITALS: BP 144/92; PULSE 87; RESP 20; TEMP 36.4; O2SAT 94
[2024-02-22] MEDS: Doxazosin Mesylate 2 MG TABLET 4 MG G-TUBE (21:12)
[2024-02-23] VITALS: BP 117/68; PULSE 91; RESP 20; TEMP 36.9; O2SAT 96
[2024-02-23 04:00] VITALS: BP 107/66; PULSE 92; RESP 20; TEMP 36.8; O2SAT 97
[2024-02-23] MEDS: Levothyroxine Sodium 112 MCG TABLET G-TUBE (05:09)
[2024-02-23 07:46] VITALS: BP 145/82; PULSE 87; RESP 18; TEMP 36.7; O2SAT 96
[2024-02-23] MEDS: metroNIDAZOLE/NS 500 MG/100 ML PIGGYBACK 100 MG IV (07:52)
[2024-02-23] MEDS: diazePAM 2 MG TABLET G-TUBE (07:59)
[2024-02-23] MEDS: Perphenazine 8 MG TABLET G-TUBE (07:59)
[2024-02-23] MEDS: Bethanechol Chloride 25 MG TABLET 50 MG G-TUBE (07:59)
[2024-02-23] MEDS: 0.9 % Sodium Chloride Flush 3 ML SYRINGE IVFLUSH (07:59)
[2024-02-23 11:34] VITALS: BP 137/86; PULSE 84; TEMP 36.8; O2SAT 96
--- NOTE | 2024-02-23 13:53 | MHC.CM.PN ---
Patient has been medically cleared for dc to return to LTC today. Patient will return to LTC @ [facility] today at 3PM, via [facility]. CM left a detailed message for Guardian/Latrice @ [phone], informing her of the dc and addressing the IMM.
--- NOTE | 2024-02-23 13:55 | PM.DS ---
DS: Providers Provider Date of Service: 02/23/24 Date of admission: 02/19/24 20:12 Primary care physician: Unknown Physician Consults: 02/21/24 07:35 Consult to Infectious Diseases Routine Consulting Provider: [facility] Reason for consultation: gm pos bacteremia Has provider been notified: No DS: Diagnosis Discharge Diagnosis (1) Acute hyperkalemia: Status: Acute (2) Acute hypoxemic respiratory failure: Status: Acute (3) Acute metabolic encephalopathy: Status: Acute DS: Summary Hospital Course Hospital Course: History of presenting illness: Date of Service: 02/19/24 Attending physician on admission: Antoni Stark Chief Complaint: ams 73-year-old male with history of COPD, dysphagia, BPH, history of TBI, history of alcohol dependence, hyperlipidemia, hypothyroidism paranoid schizophrenia, bladder cancer with chronic Hyatt and right nephrostomy tube, AAA, renal artery stenosis presented to the ED from [facility] where he resides for long-term care for evaluation of altered mental status and attempts to pull out his right nephrostomy tube which is noted to still be in place and is making urine. The patient was recently seen in the ED and diagnosed with UTI. Urine culture from 02/10 grew Aeromonas hydrophilic sensitive to ceftriaxone, gentamicin, meropenem, and tetracyclines. via and Providencia stuartii sensitive to ceftriaxone, and Bactrim. Bactrim not administered due to renal function. Ceftriaxone was administered but discontinued due to rash/swelling per nursing staff. This morning was noted to be increasingly confused and agitated and attempting to pull out the right nephrostomy tube. He was also noted to be tachycardic and warm to touch and transferred to the ED for further evaluation. On arrival, patient febrile to 101.4, tachycardic to 124, tachypneic to 30. He did develop hypoxia in the mid 80s and is suspected to be aspirating, which per RN report from [facility], patient does chronically aspirate and as on puree and nectar thick diet as tolerated. He has a leukocytosis of 21.9. Creatinine 3.65, baseline around 2.4. BUN 95. Electrolyte low levels normal except for potassium 6.0. Lactic acid 1.6. Urinalysis pending. Negative for COVID, RSV, influenza. Chest x-ray unremarkable. CT abdomen/pelvis shows right-sided internal/external PCN/ureteral stent in good position with no significant perinephric hematoma and mild left-sided hydronephrosis with dilatation of the ureter down to the level of the bladder with Hyatt catheter in place. Incidental findings noted. In the ED, has received 2 L IVF, calcium gluconate, ibuprofen, Tylenol, ceftriaxone, and Lokelma. Hospital course: 73-year-old male with history of COPD, dysphagia, BPH, history of TBI, history of alcohol dependence, hyperlipidemia, hypothyroidism paranoid schizophrenia, bladder cancer with chronic Hyatt and right nephrostomy tube, AAA, renal artery stenosis admitted for further management of acute UTI and aspiration with sepsis and hypoxemic respiratory failure. # acute hypoxemic respiratory failure likely secondary to expiration,Chest x-ray and CT abdomen/pelvis did not show any evidence of pneumonia however, patient noted to have gurgling respirations and acute hypoxia with significant leukocytosis and fevers therefore treated with IV ceftriaxone and Flagyl, he was made NPO and continued on G-tube feedings, recommend speech therapy eval prior to introducing by mouth diet, hypoxia resolved currently on room air with stable oxygenation. # sepsis due to acute UTI/possible aspiration on admission noted to be febrile to 101.4, tachycardic, tachypneic, No lactic acidosis, blood culture 1/[address] abdomen and pelvis showed no acute abnormality, Urine culture grew Providencia stuartii, treated with IV ceftriaxone and Flagyl with good response was followed closely by Infectious Disease will discharge home on Ceftin and Flagyl. # acute metabolic encephalopathy-due to infection resolved patient seems to be at baseline. # acute on chronic normocytic anemia, noted to have drop in hematocrit, Stool occult test negative, iron studies showed low iron saturation and iron, elevated ferritin likely due to inflammation hematocrit improved after 1 unit of packed RBC . # acute kidney injury on CKD 4-likely prerenal treated with IV fluids renal function returned to baseline, recommend to avoid nephrotoxins,acute hyperkalemia likely due to KELLY resolved with Lokelma and calcium gluconate. #Bladder cancer with obstructive uropathy, continue hyatt, R nephrostomy tube in place, on terazosin and bethanechol. # in regard to all chronic medical issues including hyperlipidemia, hypothyroidism recommend to continue home medications. # COPD no acute exacerbation noted continue home inhalers # paranoid schizophrenia resume home medications. No behavioral issues noted. Time Attestation Discharge Coordination Time (in mins): 40 Quality: Safe Use of Opioids Does Pt have an Active Cancer Diagnosis on the Problem List?: No Quality: Stroke Does the patient have a stroke diagnosis?: No Physical Exam Vital Signs: Vital Signs: Last Vital Signs Temp 98.3 F 02/23/24 11:34 Pulse 84 02/23/24 11:34 Resp 18 02/23/24 07:46 BP 137/86 02/23/24 11:34 Pulse Ox 96 02/23/24 11:34 O2 Del Method Room Air 02/23/24 11:34 O2 Flow Rate 2 02/22/24 07:33 BMI result Body Mass Index 24.1 Const: Other: General resting in bed upright, no acute distress. Neck no JVD. CVS regular rate rhythm, Respiratory lungs clear to auscultation, no respiratory distress, no wheeze, no rhonchi. Gastrointestinal abdomen soft, non tender, G-tube in place with no surrounding redness or drainage, bowel sounds audible, no guarding , no rigidity. Extremities no edema. Neuro moving all 4 extremity, speech thick. Skin dry skin lower extremity Hyatt clear urine DS: Data Data Completed and Pending Completed studies during hospitalization [Text1]: Procedures Drainage of Right Kidney Pelvis with Drainage Device, Percutaneous Approach (12/16/23) Drainage of Right Ureter with Drainage Device, Percutaneous Approach (01/02/24) Insertion of Feeding Device into Stomach, Percutaneous Approach (01/02/24) Introduction of Vasopressor into Peripheral Vein, Percutaneous Approach (08/28/23) Restriction of Abdominal Aorta with Intraluminal Device, Percutaneous Approach (12/24/22) Discharge Plan Discharge Patient Disposition: Xfer LT Discharge Diagnosis: acute hypoxic respiratory failure Sepsis due to UTI Acute metabolic encephalopathy Bacteroides fragilis bacteremia Referrals: [facility] [Outside] - 1 Week Physician,Unknown J [Primary Care Provider] - 1 Week Discharge Medications: New cefuroxime axetil 250 mg tablet 250 mg feeding tube Q12H 7 Days Qty: 14 0RF metronidazole 500 mg tablet 500 mg feeding tube Q8H 12 Days Qty: 36 0RF Continued acetaminophen 325 mg Tablet 650 mg feeding tube Q6H PRN (Reason: Fever Or Pain) Rx Instructions: Fever >100 DO NOT EXCEED 3 GRAMS IN 24 HOURS perphenazine 8 mg tablet 8 mg feeding tube BID terazosin 5 mg capsule 5 mg feeding tube BEDTIME bethanechol chloride 50 mg tablet 50 mg feeding tube BID albuterol sulfate 90 mcg/actuation HFA aerosol inhaler 2 puff inhalation Q4H PRN (Reason: shortness of breath or wheezing) midodrine 5 mg tablet 5 mg PO BID PRN (Reason: Hypotension) Rx Instructions: If SBP <80 lactulose 10 gram/15 mL solution 15 ml feeding tube BID simvastatin 40 mg tablet 40 mg feeding tube BEDTIME levothyroxine 112 mcg tablet 112 mcg feeding tube DAILY@0600 bisacodyl [Dulcolax (bisacodyl)] 10 mg suppository 10 mg DC DAILY PRN (Reason: Constipation) Rx Instructions: USE IF SENNA IS INEFFECTIVE Fleet Enema 19-7 gram/118 mL enema 118 ml DC DAILY PRN (Reason: Constipation) Rx Instructions: Use only if Bisacodyl suppository is ineffective. polyvinyl alcohol [Artificial Tears (polyvin alc)] 1.4 % drops 1 drp ophthalmic (eye) Q4H PRN (Reason: Dry Eyes) Rx Instructions: Both eyes sennosides [senna] 8.6 mg tablet 17.2 mg feeding tube DAILY PRN (Reason: Constipation) diazepam 2 mg tablet 3 mg feeding tube BID Discharge Orders: Discharge Order (Routine); Ordered 02/23/24 Ordered By: Joshua Nova Diet: g tube feedings Activity on Discharge: As tolerated Stand Alone Forms: Patient Portal Discharge page Print Language: Polish Care Plan Goals: Take Flagyl and Ceftin as prescribed Keep NPO and reassess with speech therapy Continue G-tube feeds Consider reducing dose of diazepam to 2 mg twice daily, currently on 3 mg b.i.d. if noted to be lethargic. Health Concerns: Continue all home medications as before. Plan of Treatment: Outpatient follow-up with primary care physician Assessment: As above
--- NOTE | 2024-02-23 15:39 | MHC.CM.PN ---
RN informed CM that Patient left with his PICC in place. CM reached out to [facility] via [facility] and still await confirmation that PICC can be removed at SNF. CM called [facility] and asked to speak with a Nursing Hotel Front Desk Clerk but was told that there are no Nursing Supervisors on the weekend. CM spoke with the Patient's floor Nurse from [facility], who confirmed that Patient had already arrived back to them and she (Dennise) believes the PICC can be removed at the SNF. CM will follow further as needed.
[2024-02-24 02:24] LABS: Strep Pneumo Ag urine Not Detected (Not Detected)
[2024-02-24 09:28] LABS: Glucose, Whole Blood 134 mg/dL (60-115)
[2024-02-24 09:32] LABS: Glucose, Whole Blood 112 mg/dL (60-115)
[2024-02-25 05:38] LABS: Legionella Ag Urine Not Detected (Not Detected)
== END 2024-02-23 15:25 | DRG 871 ==
LOC: HO.ED 16:45 → HO.EDOVER 20:44 → HO.IMC 02-20 00:08
PROVIDERS: Student in an Organized Health Care Education/Training Program; Admitting Provider Physician Assistant; Emergency Provider Internal Medicine; Visit Provider Hospitalist
DX: A41.9 Sepsis, unspecified organism (principal); G93.41 Metabolic encephalopathy; J96.01 Acute respiratory failure with hypoxia; N17.9 Acute kidney failure, unspecified; N18.4 Chronic kidney disease, stage 4 (severe); N39.0 Urinary tract infection, site not specified; F20.0 Paranoid schizophrenia; N13.8 Other obstructive and reflux uropathy; D63.1 Anemia in chronic kidney disease; N40.1 Benign prostatic hyperplasia with lower urinary tract symptoms; E78.5 Hyperlipidemia, unspecified; I12.9 Hypertensive chronic kidney disease with stage 1 through stage 4 chronic kidney disease, or unspecified chronic kidney disease; E87.5 Hyperkalemia; R65.20 Severe sepsis without septic shock; E03.9 Hypothyroidism, unspecified; B96.6 Bacteroides fragilis [B. fragilis] as the cause of diseases classified elsewhere; E86.1 Hypovolemia; Z93.6 Other artificial openings of urinary tract status; Z85.51 Personal history of malignant neoplasm of bladder; Z93.1 Gastrostomy status; Z20.822 Contact with and (suspected) exposure to COVID-19; Z79.890 Hormone replacement therapy; Z79.899 Other long term (current) drug therapy
CPT/HCPCS: 0241U; 36415; 71045; 74176; 80048; 80053; 81001; 82272; 82728; 82947; 83540; 83605; 85025; 85027; 86850; 86900; 86901; 86923; 87040; 87076; 87086; 87088; 87147; 87186; 87205; 87449; 87899; 94799; 99285; C1758; J0613; J0696; J1644; J1836; J3370; P9016

== ENCOUNTER → 2024-02-19 20:12 | Outpatient (BNV) | payer MEDICARE, MEDICAID, SELFPAY | PROVIDERS: Admitting Provider Physician Assistant; Emergency Provider Internal Medicine; Visit Provider Internal Medicine | DX: N39.0 Urinary tract infection, site not specified (principal); J96.01 Acute respiratory failure with hypoxia | CPT/HCPCS: 99222 ==

== ENCOUNTER → 2024-02-19 20:12 | Outpatient (BNV) | payer MEDICARE, MEDICAID, SELFPAY | PROVIDERS: Admitting Provider Physician Assistant; Emergency Provider Internal Medicine; Visit Provider Physician Assistant | DX: J96.01 Acute respiratory failure with hypoxia (principal); T17.908A Unspecified foreign body in respiratory tract, part unspecified causing other injury, initial encounter; N17.9 Acute kidney failure, unspecified; N18.4 Chronic kidney disease, stage 4 (severe); N39.0 Urinary tract infection, site not specified; E87.5 Hyperkalemia; G93.41 Metabolic encephalopathy | CPT/HCPCS: 99223; 99232; 99233; 99239 ==

== ENCOUNTER 2024-02-28 08:02 | Emergency (ER) | payer MEDICARE, MEDICAID, SELFPAY ==
[2024-02-28] VITALS (10 sets, daily range): BP systolic 101–141; BP diastolic 63–89; PULSE 105–118; RESP 24–30; TEMP 36.6–37.5; O2SAT 93–98; BMI 17.1
--- NOTE | ~2024-02-28 | CT_ITS ---
EXAMINATION: CT CHEST, ABDOMEN AND PELVIS WITHOUT CONTRAST CLINICAL INFORMATION: Aspiration, altered mental status right nephrostomy tube COMPARISON: CT abdomen from 02/19/2024, CT angiography chest from 10/13/2023 TECHNIQUE: Multidetector volumetric CT imaging of the chest, abdomen, and pelvis was performed. Axial MIP volume rendering provided. Sagittal and coronal reformatted images were obtained. This CT examination was performed using dose optimization techniques as appropriate, variously including the following: *Automated exposure control *Adjustment of mA and/or kV according to patient size (this includes techniques or standardized protocols for targeted exams where dose is matched to indication/reason for exam; i.e. extremities or head) *Use of iterative reconstruction technique DLP: 802 mGy-cm. FINDINGS: CHEST: LUNGS/PLEURA: Respiratory motion artifact limits evaluation. Biapical pleural parenchymal scarring, right greater than left. Emphysematous changes. Peripheral reticular nodular opacities. Redemonstrated masslike focus in the medial aspect of the left upper lobe now measuring 3.1 x 1.9 cm (series 7, image 161) previously measuring up to 2.7 cm in maximum dimension. Interval development of nodular focus right lung apex (series 7, image 131) measuring 8 mm. New masslike density along the anterior medial aspect of the right upper lobe measuring 1.4 x 1.0 cm (series 7, image 171). Bibasilar atelectasis. Central airways are patent. No pneumothorax. No large pleural effusion. MEDIASTINUM: Heart is not enlarged. No pericardial effusion. Coronary artery calcifications are noted. Aorta is nonaneurysmal and demonstrates atherosclerotic calcifications. Main pulmonary artery is not enlarged. No enlarged lymph nodes per size criteria. AXILLA: No lymphadenopathy. ABDOMEN AND PELVIS: LIVER, GALLBLADDER, AND BILIARY TREE: Liver is enlarged measuring 19.1 cm. Redemonstrated multiple hepatic hypodense foci statistically representing cysts, stable. No focal hepatic lesion or biliary ductal dilatation is present. The gallbladder is unremarkable with no evidence of radiopaque gallstones, gallbladder wall thickening, or obvious pericholecystic inflammatory changes. PANCREAS: Unremarkable. SPLEEN: Unremarkable. ADRENAL GLANDS: Unremarkable. KIDNEYS AND URETERS: Right-sided cutaneous nephroureteral stent, in appropriate position. Redemonstrated left-sided hydroureteronephrosis. No left-sided nephrolithiasis. BLADDER: Holland catheter within the urinary bladder as well as the distal portion of the nephroureteral stent. Bladder wall thickening. GASTROINTESTINAL TRACT: Prostate gastrostomy catheter in appropriate position. Small hiatal hernia. Colonic diverticulosis without acute diverticulitis. The small and large bowel are unremarkable. The appendix is not definitively visualized. ABDOMINAL WALL: No significant hernia is appreciated. LYMPH NODES: No enlarged lymph nodes per size criteria. VASCULAR: Redemonstrated abdominal aortic aneurysm status post aortobiiliac stent graft repair. The [place] aortic aneurysm measures up to 8.5 cm in greatest dimension and appears stable. Atherosclerotic calcifications of the aortic branches. PELVIC VISCERA: Prostate is prominently enlarged with calcifications and mass effect upon the urinary bladder measuring approximately 7.8 cm. OSSEOUS STRUCTURES: Osteopenia. Grade 1 anterolisthesis of L5 and S1. Multilevel degenerative changes of the thoracolumbar and lumbosacral spine. CT/CT abdomen pelvis wo IV con IMPRESSION: 1. Redemonstrated masslike focus in the medial aspect of the left upper lobe now measuring 3.1 x 1.9 cm previously measuring up to 2.7 cm in maximum dimension. Interval development of nodular focus right lung apex measuring 8 mm. New masslike density along the anterior medial aspect of the right upper lobe measuring 1.4 x 1.0 cm. Follow-up as per Fleischner criteria if no underlying oncologic history. 2. Right-sided percutaneous nephroureteral stent, in appropriate position. Redemonstrated left-sided hydroureteronephrosis. 3. Holland catheter within the urinary bladder as well as the distal portion of the nephroureteral stent. Bladder wall thickening. 4. Small hiatal hernia. Colonic diverticulosis without acute diverticulitis. 5. Redemonstrated abdominal aortic aneurysm status post aortobiiliac stent graft repair. The [place] aortic aneurysm measures up to 8.5 cm in greatest dimension. 6. Prostate is prominently enlarged with calcifications and mass effect upon the urinary bladder measuring approximately 7.8 cm. 7. Osteopenia. Grade 1 anterolisthesis of L5 and S1. Various management parameters for solitary pulmonary nodules are in the literature. According to the Fleischner Society, recommendations for pulmonary nodules are as follows: According to the UPDATED 2017 Fleischner Society recommendations, the advised follow-up imaging for multiple solid nodules, the largest measuring 6 mm or greater, is: HIGH RISK PATIENT: CT at 3-6 months, then at 18-24 months.
--- NOTE | 2024-02-28 08:07 | ECG_ITS ---
Test Reason : SPESIS PROTOCOL Blood Pressure : / mmHG Vent. Rate : 106 BPM Atrial Rate : 106 BPM P-R Int : 160 ms QRS Dur : 076 ms QT Int : 336 ms P-R-T Axes : 071 045 059 degrees QTc Int : 446 ms Sinus tachycardia Otherwise normal ECG When compared with ECG of 11-FEB-2024 23:36, No significant change was found Referred By: Christine Terrazas Electronically Signed By:ELENA SMITH
--- NOTE | 2024-02-28 08:30 | ED.SOB ---
HPI - SOB/Dyspnea General Chief Complaint: Upper Respiratory Symptoms Stated Complaint: AMS SOB Source: patient Mode of arrival: ambulatory Limitations: no limitations History of Present Illness ED Provider: NITIN GARCIA Narrative: 73 yo male with PMH of dysphagia s/p feeding tube, COPD not on home O2, AAA s/p endovascular repair, ETOH dependence in past, HLD, hypothyroidism, aspiration pneumonia, schizophrenia, bladder cancer with chronic hyatt and R nephrostomy tube that he recently attempted to pull out per records just discharged here on 02/22 Rx ceftin and flagyl for aspiration pneumonia, sepsis UTI - S to ceftin culture grew Providencia stuartii, encephalopathy due to infection, anemia s/p transfusion 1 UPRBC, KELLY on CKD given IVF. EMS called to [facility] today after they noted this AM he seemed more lethargic and confused. The patient cannot offer complaints. EMS found him laying flat 93% on RA. MD elicited complaint: shortness of breath Pertinent past history: pneumonia and aspiration Onset (ago): day(s) (this AM) Context: recent illness Timing: constant Severity: moderate Exacerbating factors: lying flat Relieving factors: upright position Associated symptoms: denies other symptoms Treatment prior to arrival: oxygen Related Data Home Medications ?Medication ?Instructions ?Recorded ?Confirmed bisacodyl 10 mg rectal suppository 10 mg WA DAILY PRN Constipation 09/20/22 02/19/24 (Dulcolax (bisacodyl)) sodium phosphates 19 gram-7 118 ml WA DAILY PRN Constipation 09/20/22 02/19/24 gram/118 mL enema (Fleet Enema) lactulose 10 gram/15 mL oral 15 ml feeding tube BID 09/26/22 02/19/24 solution levothyroxine 112 mcg tablet 112 mcg feeding tube DAILY@0600 09/26/22 02/19/24 simvastatin 40 mg tablet 40 mg feeding tube BEDTIME 09/26/22 02/19/24 polyvinyl alcohol 1.4 % eye drops 1 drp ophthalmic (eye) Q4H PRN Dry 12/05/22 02/19/24 (Artificial Tears (polyvinyl Eyes alcohol)) sennosides 8.6 mg tablet (senna) 17.2 mg feeding tube DAILY PRN 12/05/22 02/19/24 Constipation diazepam 2 mg tablet 3 mg feeding tube BID 10/03/23 02/19/24 albuterol sulfate 90 mcg/actuation 2 puff inhalation Q4H PRN 10/13/23 02/19/24 aerosol inhaler shortness of breath or wheezing bethanechol chloride 50 mg tablet 50 mg feeding tube BID 10/13/23 02/19/24 perphenazine 8 mg tablet 8 mg feeding tube BID 10/13/23 02/19/24 terazosin 5 mg capsule 5 mg feeding tube BEDTIME 10/13/23 02/19/24 acetaminophen 325 mg tablet 650 mg feeding tube Q6H PRN Fever 12/16/23 02/19/24 Or Pain midodrine 5 mg tablet 5 mg PO BID PRN Hypotension 02/19/24 02/19/24 Previous Rx's ?Medication ?Instructions ?Recorded cefuroxime axetil 250 mg tablet 250 mg feeding tube Q12H 7 days 02/23/24 #14 tabs metronidazole 500 mg tablet 500 mg feeding tube Q8H 12 days 02/23/24 #36 tabs Allergies Allergy/AdvReac Type Severity Reaction Status Date / Time cefpodoxime Allergy Intermediate Rash Verified 02/28/24 08:19 lactose-reduced food Allergy Unknown Unknown Verified 02/28/24 08:19 [From [facility]] Review of Systems Review of Systems: ROS unable to be obtained due to altered mental status [facility] Past Medical History Source: old records reviewed Medical History AAA (abdominal aortic aneurysm) without rupture Hyponatremia Acute UTI Obstructed, uropathy Acute on chronic kidney failure Bladder mass Acute renal failure Pulmonary nodules COPD (chronic obstructive pulmonary disease) Encounter for screening colonoscopy Lung mass Swallowing problem Pulmonary emphysema COVID-19 vaccine series completed History of COVID-19 Resides in long-term facility History of falling Personal history of traumatic brain injury Other specified intracranial injury without loss of consciousness, subsequent encounter Paralytic gait Benign prostatic hyperplasia without lower urinary tract symptoms Pain in left hip Primary generalized (osteo)arthritis Constipation, unspecified Impulse disorder, unspecified Trichotillomania Alcohol dependence, uncomplicated Hyperlipidemia, unspecified Hypothyroidism, unspecified Weakness Unspecified lack of coordination Muscle weakness (generalized) Age-related nuclear cataract, bilateral Unspecified abnormalities of gait and mobility Personal history of COVID-19 Repeated falls [place] i fracture, initial encounter for closed fracture Unsteadiness on feet Other abnormalities of gait and mobility Dysphagia, oropharyngeal phase Paranoid schizophrenia Surgical History Status post percutaneous abdominal aortic aneurysm (AAA) repair Status post AAA (abdominal aortic aneurysm) repair History of facial surgery Family History Family History Unknown No problems noted. Social History Social History Household Members: Other Housing: [facility] Housing Other:: [facility] Are you a primary career services director to a significant other at home: No Do you presently have visiting nurse or other home services: Yes Unable to assess alcohol history related to: Unknown Comment: 1:1 sitter Patient Tobacco Use Status: Tobacco use Unknown Tobacco use type: Cigarette Cigarettes Per Day: 4 Years Smoked: 57 Second Hand Smoke Exposure: No Advance Directives: Yes Advance Directives on File: Yes Advance Directives Date on File: 12/05/22 Do you have a plan to hurt others: No Plan service: No Current occupational status: disabled Physical Exam Vital Signs: Vital Signs: Last Vital Signs Temp 98 F 02/28/24 10:25 Pulse 111 H 02/28/24 11:01 Resp 25 H 02/28/24 11:01 BP 133/88 02/28/24 11:01 Pulse Ox 94 02/28/24 11:01 O2 Del Method Room Air 02/28/24 11:01 O2 Flow Rate 2 02/28/24 10:25 Oxygen Flow Rate 2 02/28/24 08:50 BMI result Body Mass Index 17.1 Appearance: somnolent and confused mild acute distress. Eyes: L eye injected, R pupil ERRL ENT: Pharynx dry MM coarse sounds noted Neck: Normal inspection. Neck supple. CVS: tachycardic heart rate and rhythm. Pulses normal. Respiratory: Mild respiratory distress - tachypnea. Breath sounds coarse and diminished in both basees Abdomen: Soft and nontender. R flank nephro tube in place Skin: Skin warm and dry. Normal skin color. Extremities: No lower extremity edema. Neuro: withdraws and localizes to pain, does not really participate Medications Administered Generic Name Dose Route Start Last Admin Trade Name Freq PRN Reason Stop Dose Admin Lactated Ringer's 1,000 mls @ 999 mls/hr 02/28/24 10:50 02/28/24 11:01 Lr IV 02/28/24 11:50 999 mls/hr .Q1H1M ONE Administration Discontinued Medications Generic Name Dose Route Start Last Admin Trade Name Rajan PRN Reason Stop Dose Admin Lactated Ringer's 1,000 mls @ 999 mls/hr 02/28/24 08:07 02/28/24 08:36 Lr IV 02/28/24 09:07 999 mls/hr .Q1H1M ONE Administration Lactated Ringer's 1,000 mls @ 999 mls/hr 02/28/24 08:12 02/28/24 09:57 Lr IV 02/28/24 09:12 Infused .Q1H1M ONE Infusion Ceftriaxone Sodium 1 gm/ 50 mls @ 100 mls/hr 02/28/24 08:12 02/28/24 08:43 Sodium Chloride IV 02/28/24 08:41 100 mls/hr ONCE ONE Administration Metronidazole 500 mg in 100 mls @ 100 mls/hr 02/28/24 08:12 02/28/24 09:19 Flagyl IV 02/28/24 09:11 100 mls/hr ONCE ONE Administration Medical Decision Making Medical Decision Making MDM Narrative: 73 yo male with PMH of dysphagia s/p feeding tube, COPD not on home O2, AAA s/p endovascular repair, ETOH dependence in past, HLD, hypothyroidism, aspiration pneumonia, schizophrenia, bladder cancer with chronic hyatt and R nephrostomy tube here with c/o increased AMS and work of breathing at this time will obtain labs, cultures, IVF x 2, start on empiric ceftriaxone and flagyl - given recent cultures and concern for aspiration. He might have aspirated again given he was laying flat and EMS noted he was coarse and gurgling. Will sit him upright. CT scans of chest and abdomen to look for worsening infection/consolidation as well as site of R nephro tube for any signs of additional source. Differential Diagnosis Differential Diagnoses: The differential diagnosis associated with the presentation includes aspiration pneumonia, hypoxia, UTI Admission/Observation Consideration of admission/observation: Escalation of care including admission/observation considered labs improved, CT scans known masses, no hypoxia here or with EMS Dr. Delatorre did come see him I have given IV abx and fluids he has no documented fevers we did suction him at this time I do not think he requires admission and Dr. Delatorre to monitor at [facility] Consult Healthcare Provider Management of the patient was discussed with: Post Closing Specialist (see note from Dr. Delatorre) Lab Data MDM Lab Attestation statement: I reviewed the patient's lab results. Cr improved, H/H improved, negative lactic acid 02/28/24 08:37 02/28/24 08:37 Labs: Lab Results 02/28/24 02/28/24 02/28/24 Range/Units 08:37 08:38 08:46 WBC 12.1 H (4.8-10.8) X10*3/uL RBC 3.10 L (4.60-5.80) X10*6/uL Hgb 8.7 L (14.0-18.0) g/dl Hct 27.3 L (42.0-52.0) % MCV 88.1 (80.0-98.0) fL MCH 28.1 (27.0-33.0) pg MCHC 31.9 (31.0-36.0) g/dl RDW 16.9 H (11.0-16.0) % Plt Count 261 D (160-400) X10*3/uL MPV 10.0 (9.4-12.4) fL Immature Gran % (Auto) 1.0 H (0.0-0.4) % Neut % (Auto) 80.8 H (45-73) % Lymph % (Auto) 7.0 L (20-40) % Green % (Auto) 9.3 (2-11) % Eos % (Auto) 1.7 (0-4) % Baso % (Auto) 0.2 (0-2) % Lymph # (Auto) 0.9 L (1.2-4.9) X10*3/uL Green # (Auto) 1.1 (0.1-1.2) X10*3/uL Eos # (Auto) 0.2 (0.0-0.4) X10*3/uL Baso # (Auto) 0.0 (0.0-0.2) X10*3/uL Abs Immat Gran (auto) 0.12 H (0.00-0.03) X10*3/uL Absolute Neuts (auto) 9.8 H (2.0-8.3) x10*3/uL Absolute Nucleated RBC 0.000 (0.0-0.012) X10*3/uL Nucleated RBC % (auto) 0.0 (0.0-0.2) /100WBC VBG pH 7.50 H (7.32-7.43) VBG pCO2 37 mmHg VBG pO2 157 mmHg VBG HCO3 29 H (22-26) mmol/L VBG O2 Saturation 99.0 % VBG Base Excess 5.8 mmol/L Sodium 138 (135-145) mmol/L Potassium 4.5 (3.3-5.1) mmol/L Chloride 105 (96-108) mmol/L Carbon Dioxide 26 (22-29) mmol/L Anion Gap 12 (12-20) BUN 43 H (9-16) mg/dL Creatinine 1.26 (0.5-1.4) mg/dL Estim Creat Clear Calc 36.6 Estimated GFR 56 Random Glucose 121 H (60-115) mg/dL Lactic Acid 1.2 (0.5-2.0) mmol/L Calcium 8.4 (8.4-10.2) mg/dL Magnesium 2.1 (1.6-2.6) mg/dL Total Bilirubin 0.2 (0.0-1.0) mg/dL Direct Bilirubin < 0.2 (0.0-0.5) mg/dL AST 29 (5-37) U/L ALT 26 (0-40) U/L Alkaline Phosphatase 101 (39-117) U/L Troponin I High Sens < 2.7 (<3.5-35.0) ng/L B-Natriuretic Peptide 20 (<100) pg/mL Total Protein 5.9 L (6.5-8.0) g/dL Albumin 2.5 L (3.5-5.0) g/dL Lipase 14 (8-78) U/L Procalcitonin 0.13 ng/mL Urine Color Urine Appearance Urine pH (5.0-9.0) Ur Specific [place] (1.005-1.025) Urine Protein (Neg-Trace) mg/dL Urine Glucose (UA) (Negative) mg/dL Urine Ketones (Negative) mg/dL Urine Blood (Negative) Urine Nitrite (Negative) Ur Leukocyte Esterase (Negative) Urine RBC (0-2) /HPF Urine WBC (0-5) /HPF Ur Squamous Epith Cells (0-2) /HPF Urine Bacteria (None Seen) Hyaline Casts (0-2) /LPF Influenza Type A (PCR) NEGATIVE (Negative) Influenza Type B (PCR) NEGATIVE (Negative) RSV RNA Qual (PCR) NEGATIVE (Negative) SARS-CoV-2 RNA (RT-PCR) NEGATIVE (Negative) 02/28/24 Range/Units 09:00 WBC (4.8-10.8) X10*3/uL RBC (4.60-5.80) X10*6/uL Hgb (14.0-18.0) g/dl Hct (42.0-52.0) % MCV (80.0-98.0) fL MCH (27.0-33.0) pg MCHC (31.0-36.0) g/dl RDW (11.0-16.0) % Plt Count (160-400) X10*3/uL MPV (9.4-12.4) fL Immature Gran % (Auto) (0.0-0.4) % Neut % (Auto) (45-73) % Lymph % (Auto) (20-40) % Green % (Auto) (2-11) % Eos % (Auto) (0-4) % Baso % (Auto) (0-2) % Lymph # (Auto) (1.2-4.9) X10*3/uL Green # (Auto) (0.1-1.2) X10*3/uL Eos # (Auto) (0.0-0.4) X10*3/uL Baso # (Auto) (0.0-0.2) X10*3/uL Abs Immat Gran (auto) (0.00-0.03) X10*3/uL Absolute Neuts (auto) (2.0-8.3) x10*3/uL Absolute Nucleated RBC (0.0-0.012) X10*3/uL Nucleated RBC % (auto) (0.0-0.2) /100WBC VBG pH (7.32-7.43) VBG pCO2 mmHg VBG pO2 mmHg VBG HCO3 (22-26) mmol/L VBG O2 Saturation % VBG Base Excess mmol/L Sodium (135-145) mmol/L Potassium (3.3-5.1) mmol/L Chloride (96-108) mmol/L Carbon Dioxide (22-29) mmol/L Anion Gap (12-20) BUN (9-16) mg/dL Creatinine (0.5-1.4) mg/dL Estim Creat Clear Calc Estimated GFR Random Glucose (60-115) mg/dL Lactic Acid (0.5-2.0) mmol/L Calcium (8.4-10.2) mg/dL Magnesium (1.6-2.6) mg/dL Total Bilirubin (0.0-1.0) mg/dL Direct Bilirubin (0.0-0.5) mg/dL AST (5-37) U/L ALT (0-40) U/L Alkaline Phosphatase (39-117) U/L Troponin I High Sens (<3.5-35.0) ng/L B-Natriuretic Peptide (<100) pg/mL Total Protein (6.5-8.0) g/dL Albumin (3.5-5.0) g/dL Lipase (8-78) U/L Procalcitonin ng/mL Urine Color Yellow Urine Appearance Clear Urine pH 8.0 (5.0-9.0) Ur Specific [place] 1.015 (1.005-1.025) Urine Protein 100 (2+) H (Neg-Trace) mg/dL Urine Glucose (UA) Negative (Negative) mg/dL Urine Ketones Negative (Negative) mg/dL Urine Blood Small (1+) H (Negative) Urine Nitrite Negative (Negative) Ur Leukocyte Esterase Moderate (2+) H (Negative) Urine RBC >20 H (0-2) /HPF Urine WBC 21-50 H (0-5) /HPF Ur Squamous Epith Cells 0-2 (0-2) /HPF Urine Bacteria None Seen (None Seen) Hyaline Casts 3-5 (0-2) /LPF Influenza Type A (PCR) (Negative) Influenza Type B (PCR) (Negative) RSV RNA Qual (PCR) (Negative) SARS-CoV-2 RNA (RT-PCR) (Negative) Independent Interpretation I performed an independent interpretation of an: EKG and CT Scan (masess but no acute cause) Interpretation: Rate: 106 Rhythm: sinus tach [place]: normal Normal P waves. Normal REYNA. Normal QRS complex. ST T wave : normal no NORM, flat t wave aVL qTC: 446 prior studies: no acute ischemia The study has been interpreted contemporaneously by me. . Radiology Impression Discussion of test interpretation with radiology: I have reviewed the radiologist's reading. Independent Historian Clinical information obtained from an independent historian. History obtained from or confirmed by: EMS External Record Review External record reviewed: Inpatient record Critical Care Time Critical Care Time Critical Care Time: Yes Total Critical Care Time: 60 Attestation: review of records, IVF x 3L, consultation I attest to this time spent taking care of the patient Discharge Plan Discharge Clinical Impression: At high risk for aspiration Cough Qualifiers: Cough type: chronic Qualified Code(s): R05.3 - Chronic cough Patient Disposition: Home, Self-Care Instructions: Chronic Cough (ED) Additional Instructions: repeat imaging no new findings - persistent lung masses which have increased in size H/H better, neg lactic acid, procalcitonin, BNP, no WBC count no hypoxia here Cr normal today given IV ceftriaxone and flagyl continue antibiotics and supportive care case discussed with Dr. Delatorre CT/CT abdomen pelvis wo IV con IMPRESSION: 1. Redemonstrated masslike focus in the medial aspect of the left upper lobe now measuring 3.1 x 1.9 cm previously measuring up to 2.7 cm in maximum dimension. Interval development of nodular focus right lung apex measuring 8 mm. New masslike density along the anterior medial aspect of the right upper lobe measuring 1.4 x 1.0 cm. Follow-up as per Fleischner criteria if no underlying oncologic history. 2. Right-sided percutaneous nephroureteral stent, in appropriate position. Redemonstrated left-sided hydroureteronephrosis. 3. Hyatt catheter within the urinary bladder as well as the distal portion of the nephroureteral stent. Bladder wall thickening. 4. Small hiatal hernia. Colonic diverticulosis without acute diverticulitis. 5. Redemonstrated abdominal aortic aneurysm status post aortobiiliac stent graft repair. The [place] aortic aneurysm measures up to 8.5 cm in greatest dimension. 6. Prostate is prominently enlarged with calcifications and mass effect upon the urinary bladder measuring approximately 7.8 cm. 7. Osteopenia. Grade 1 anterolisthesis of L5 and S1. Prescriptions: No Action acetaminophen 325 mg Tablet 650 mg feeding tube Q6H PRN (Reason: Fever Or Pain) Rx Instructions: Fever >100 DO NOT EXCEED 3 GRAMS IN 24 HOURS perphenazine 8 mg tablet 8 mg feeding tube BID terazosin 5 mg capsule 5 mg feeding tube BEDTIME bethanechol chloride 50 mg tablet 50 mg feeding tube BID albuterol sulfate 90 mcg/actuation HFA aerosol inhaler 2 puff inhalation Q4H PRN (Reason: shortness of breath or wheezing) midodrine 5 mg tablet 5 mg PO BID PRN (Reason: Hypotension) Rx Instructions: If SBP <80 cefuroxime axetil 250 mg tablet 250 mg feeding tube Q12H 7 Days Qty: 14 0RF metronidazole 500 mg tablet 500 mg feeding tube Q8H 12 Days Qty: 36 0RF lactulose 10 gram/15 mL solution 15 ml feeding tube BID simvastatin 40 mg tablet 40 mg feeding tube BEDTIME levothyroxine 112 mcg tablet 112 mcg feeding tube DAILY@0600 bisacodyl [Dulcolax (bisacodyl)] 10 mg suppository 10 mg WA DAILY PRN (Reason: Constipation) Rx Instructions: USE IF SENNA IS INEFFECTIVE Fleet Enema 19-7 gram/118 mL enema 118 ml WA DAILY PRN (Reason: Constipation) Rx Instructions: Use only if Bisacodyl suppository is ineffective. polyvinyl alcohol [Artificial Tears (polyvin alc)] 1.4 % drops 1 drp ophthalmic (eye) Q4H PRN (Reason: Dry Eyes) Rx Instructions: Both eyes sennosides [senna] 8.6 mg tablet 17.2 mg feeding tube DAILY PRN (Reason: Constipation) diazepam 2 mg tablet 3 mg feeding tube BID Print Language: Telugu
[2024-02-28] MEDS: Lactated Ringers 1,000 ML 999 ML IV ×3 (08:36→11:01)
[2024-02-28] MEDS: cefTRIAXone sodium 1 GM in 0.9 % Sodium Chloride 50 ML IV (08:43)
[2024-02-28 08:47] LABS: MANUAL DIFF FLAG NO
[2024-02-28 08:49] LABS: Basophils Percent Auto 0.2 % (0-2); Eosinophils Absolute Auto 0.2 X10*3/uL (0.0-0.4); Eosinophils Percent Auto 1.7 % (0-4); Hematocrit 27.3 % (42.0-52.0); Hemoglobin 8.7 g/dl (14.0-18.0); Imm Gran Abs Auto 0.12 X10*3/uL (0.00-0.03); Lymphocytes Absolute Auto 0.9 X10*3/uL (1.2-4.9); Mean Corpuscular HGB Conc 31.9 g/dl (31.0-36.0); Mean Corpuscular Hemoglobin 28.1 pg (27.0-33.0); Mean Corpuscular Volume 88.1 fL (80.0-98.0); Monocytes Absolute Auto 1.1 X10*3/uL (0.1-1.2); Monocytes Percent Auto 9.3 % (2-11); Neutrophils Absolute Auto 9.8 x10*3/uL (2.0-8.3); Neutrophils Percent Auto 80.8 % (45-73); Platelet Count 261 X10*3/uL (160-400); Red Cell Distribution Width 16.9 % (11.0-16.0); White Blood Count 12.1 X10*3/uL (4.8-10.8)
[2024-02-28 08:53] LABS: Venous Blood Gas Refer to POC result
[2024-02-28 08:53] LABS: VBG Base Excess 5.8 mmol/L; VBG HCO3 29 mmol/L (22-26); VBG pCO2 37 mmHg; VBG pO2 157 mmHg
[2024-02-28 09:02] LABS: Lactic Acid 1.2 mmol/L (0.5-2.0)
[2024-02-28 09:05] LABS: Appearance Urine Clear; Color Urine Yellow; Glucose Urine UA Negative (Negative); Leukocyte Esterase Urine Moderate (2+) (Negative); Nitrite Urine Negative (Negative); Specific Gravity - Urine 1.015 (1.005-1.025); UMIC TRIGGER UACC YES; Urine Blood Small (1+) (Negative); Urine Ketones Negative (Negative); Urine Protein 100 (2+) mg/dL (Neg-Trace)
[2024-02-28 09:11] LABS: Bacteria Urine None Seen (None Seen); RBC Urine >20 /HPF (0-2); Squamous Epithelial Cell Urine 0-2 /HPF (0-2); UACC Culture Trigger YES; WBC Urine 21-50 /HPF (0-5)
[2024-02-28 09:11] LABS: B Type Natriuretic Peptide 20 pg/mL (<100)
[2024-02-28 09:13] LABS: Alanine Aminotransferase 26 U/L (0-40); Albumin Level 2.5 g/dL (3.5-5.0); Alkaline Phosphatase 101 U/L (39-117); Anion Gap 12 (12-20); Aspartate Amino Transferase 29 U/L (5-37); Bilirubin Direct < 0.2 mg/dL (0.0-0.5); Bilirubin Total 0.2 mg/dL (0.0-1.0); Blood Urea Nitrogen 43 mg/dL (9-16); Calcium 8.4 mg/dL (8.4-10.2); Carbon Dioxide 26 mmol/L (22-29); Chloride 105 mmol/L (96-108); Creatinine Clr Calc Pharmacy 36.6; Estimated Glomerular Filt Rate 56; Glucose Random 121 mg/dL (60-115); Lipase 14 U/L (8-78); Magnesium 2.1 mg/dL (1.6-2.6); Potassium 4.5 mmol/L (3.3-5.1); Sodium 138 mmol/L (135-145); Total Protein 5.9 g/dL (6.5-8.0); Troponin-I High Sensitivity < 2.7 ng/L (<3.5-35.0)
[2024-02-28] MEDS: metroNIDAZOLE/NS 500 MG/100 ML PIGGYBACK 100 MG IV (09:19)
[2024-02-28 09:25] LABS: Influenza A PCR NEGATIVE (Negative); Influenza B PCR NEGATIVE (Negative); Resp Syncy Virus RNA Qual PCR NEGATIVE (Negative); SARS COV2 PCR INHOUSE NEGATIVE (Negative)
[2024-02-28 09:31] LABS: Procalcitonin 0.13 ng/mL
[2024-02-28] MEDS: Acetaminophen Supp 650 MG SUPP.RECT PR (11:41)
--- NOTE | 2024-02-28 11:59 | P.EN_ITS ---
Event Note Date of Service: 02/28/24 Event Note: Patient well known to me from [facility]. Has been slowly declining over the past 6-8 months. Attempting to change code status through court system however remains full code. Laboratory/imaging data reviewed with Dr. Terrazas. Does not meet hospital level of care; moving towards comfort care however courts lagging. Given 3 L of fluid; patient at baseline. Patient will be transfer back to [facility] and I will see him there. At [facility], we will move towards comfort care however given the restraints of the state order, will initiate CPR when and if that time presents itself. Time Spent With Patient Time: Total time managing care of this patient today ____ minutes.
--- NOTE | 2024-02-29 07:28 | PC.NURSE ---
all fluids complete on 02/28/24 at 0958
== END 2024-02-28 12:37 | disposition home or self-care (01) ==
PROVIDERS: Emergency Provider Emergency Medicine; PCP Hospitalist
DX: R05.3 Chronic cough (principal); R06.02 Shortness of breath; R41.82 Altered mental status, unspecified; R91.8 Other nonspecific abnormal finding of lung field; Z03.818 Encounter for observation for suspected exposure to other biological agents ruled out; E78.5 Hyperlipidemia, unspecified; J44.9 Chronic obstructive pulmonary disease, unspecified; Z99.81 Dependence on supplemental oxygen; Z85.51 Personal history of malignant neoplasm of bladder
CPT/HCPCS: 0241U; 36415; 71250; 74176; 80048; 80076; 81001; 82803; 83605; 83690; 83735; 83880; 84145; 84484; 85025; 87040; 87086; 93005; 96361; 96374; 96375; 99285; J0696; J1836; J7120

== ENCOUNTER → 2024-02-28 08:07 | Outpatient (BNV) | payer MEDICARE, MEDICAID, SELFPAY | PROVIDERS: Emergency Provider Emergency Medicine; PCP Hospitalist; Visit Provider Internal Medicine | DX: R06.02 Shortness of breath (principal); R41.82 Altered mental status, unspecified | CPT/HCPCS: 93010 ==